=== PATIENT | female | born 1955 | race Caucasian/White ===

== ENCOUNTER 2023-05-23 12:49 | Emergency (ER) | payer MEDICARE, SELFPAY ==
[2023-05-23 13:06] VITALS: BP 106/48; PULSE 82; RESP 20; TEMP 36.7; O2SAT 100
--- NOTE | 2023-05-23 13:06 | ED.GENADULT ---
HPI - General Adult General Chief complaint: Fall Stated complaint: not feeling well Source: patient and RN notes reviewed History of Present Illness HPI narrative: 67 yo F Presents to urgent care [facility] friend at side. 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 Pt states she vomited x 1 in the bathroom and made it back to a table where she had a syncopal episode when attempting to sit down. Pt states she landed on her left buttocks. Denies hitting her head. Friend states pt was only out for a couple seconds. Pt admits to have a worse LIMA than normal that started this morning when she was in the shower, screaming. Pt states she was screaming b/c she is just tired of being sick. Pt reports having upper chest pain that radiated down both arms the other day. Pt states she has been having more and more chest pain lately but nothing today. Denies any fevers, chills, diarrhea, abdominal pain, blood in her emesis, dysuria, numbness, or tingling. Related Data Home Medications Medication Instructions Recorded Confirmed amlodipine 10 mg tablet mg 05/23/23 carvedilol 25 mg tablet mg 05/23/23 chlorthalidone 25 mg tablet mg 05/23/23 clonazepam 0.5 mg tablet mg 05/23/23 duloxetine 60 mg capsule,delayed mg PO 05/23/23 release empagliflozin 10 mg tablet mg 05/23/23 (Jardiance) fluticasone propionate 50 intranasal 05/23/23 mcg/actuation nasal spray,suspension gabapentin 300 mg capsule mg 05/23/23 levetiracetam 500 mg tablet mg PO 05/23/23 levothyroxine 50 mcg tablet mcg 05/23/23 meloxicam 7.5 mg tablet mg 05/23/23 metformin 1,000 mg tablet mg 05/23/23 montelukast 10 mg tablet mg 05/23/23 triamcinolone acetonide 0.1 % topical 05/23/23 topical ointment Allergies Allergy/AdvReac Type Severity Reaction Status Date / Time bupropion AdvReac Mild MIGRAINE Verified 05/23/23 13:12 codeine AdvReac Mild NAUSEA/VOMI Verified 05/23/23 13:12 TING losartan AdvReac Cough Verified 05/23/23 13:16 Review of Systems Review of Systems: CONSTITUTIONAL: Denies fever, chills, or sweats. EYES: Denies visual changes, redness, or discharge. ENT: Denies otalgia and sore throat CARDIOVASCULAR: Denies chest pain, palpitations, or edema. RESPIRATORY: Denies cough or dyspnea. GASTROINTESTINAL: Denies abdominal pain, nausea, vomiting, or diarrhea. GENITOURINARY: Denies dysuria or hematuria. SKIN: Denies rash or itching. MUSCULOSKELETAL: Denies back pain, joint pain, or myalgia. NEUROLOGIC: Headache and generalized weakness Pertinent positives per HPI. PMFSH Comments At the time of my signature, I reviewed and agree with the nursing past medical, surgical, social, and family history. There is no relevant family history pertinent to the patient complaint. Exam Narrative: GENERAL: This is a well-nourished, well-developed patient, in no apparent distress. HEAD: normocephalic, atraumatic. EYES: Sclera clear/white. Vision is grossly intact. EARS: External ears normal, auditory canals clear and without drainage. Hearing grossly intact. NOSE: External nose normal with no obvious nasal discharge, nares without redness, no rhinorrhea. CARDIOVASCULAR: Regular rate and rhythm without murmurs, gallops, or rubs. RESPIRATORY: Clear to auscultation. Breath sounds equal bilaterally. No wheezes, rales, or rhonchi. GASTROINTESTINAL: Abdomen soft, non-tender, nondistended. Bowel sounds are active. No hepato-splenomegaly, or palpable masses. No guarding. SKIN: warm, intact with no suspicious lesions or rash, dry. NEURO: awake, alert, and oriented to person, place and time. There were no obvious focal neurologic abnormalities. EXTREMITIES: No clubbing, cyanosis, or edema. No joint tenderness, effusion, or edema noted. Course Course Level of Care: Express Care Visit Vital Signs Vital signs: Vital Signs Temperature 98.0 F 05/23/23 13:06
--- NOTE | 2023-05-23 13:11 | ECG_ITS ---
Measurements Intervals [place] Rate: 84 P: 41 [place]: 133 QRS: 59 QRSD: 82 T: 80 QT: 369 QTc: 438 Interpretive Statements SINUS RHYTHM BORDERLINE T WAVE ABNORMALITY- HIGH LATERAL LEADS BORDERLINE ECG NO PREVIOUS ECG AVAILABLE FOR COMPARISON Electronically Signed On 05-23-2023 15:20:07 CDT by Gustabo Desai D.O.
--- NOTE | 2023-05-23 13:59 | PC.NURSE ---
1:23 PM EMS CALLED. UMESH POLK RN
== END 2023-05-23 13:32 | disposition short-term general hospital (02) ==
PROVIDERS: Emergency Provider Nurse Practitioner Family; PCP Internal Medicine
DX: R55 Syncope and collapse (principal)
CPT/HCPCS: 93005; 99213; 99215; G0463

== ENCOUNTER 2023-12-24 11:44 | Observation (INO) | payer MEDICARE, SELFPAY ==
[2023-12-24] VITALS (37 sets, daily range): BP systolic 108–133; BP diastolic 53–96; PULSE 87–101; RESP 12–25; TEMP 36.1–36.4; O2SAT 93–100; BMI 22.1
--- NOTE | ~2023-12-24 | CT_ITS ---
EXAMINATION: CT abdomen pelvis w con DATE: 12/24/2023 13:11 INDICATION: Generalized abdominal pain. TECHNIQUE: Computed tomography (CT) of the abdomen and pelvis was performed with 100 mL Omnipaque 350 intravenous contrast. Automated exposure control and iterative reconstruction technique were employe d. The dose-length product was 600.80 mGy-cm. COMPARISON: None. FINDINGS: The visualized portions of the lung bases demonstrate chronic interstitial lung disease. Th ere are nodules in the lungs measuring up to 4 mm in right lower lobe, likely benign. No pleural effu beronica. The heart size is normal. There are coronary artery calcifications. No pericardial effusion. Th ere is a small sliding hiatal hernia. The liver, spleen, pancreas, and adrenal glands are normal. The re is a gallstone in the gallbladder, which is normal in size. There is cortical thinning of the kidn eys. There are multiple fibroids in the uterus. There is wall thickening of the rectosigmoid and desc ending colon, consistent with colitis. The appendix is normal. There are no dilated loops of bowel. T here is calcified atherosclerosis of the aorta and many of the other arteries. There are no pathologi rajendra enlarged lymph nodes. There is no free intraperitoneal fluid. There is mild thoracic spondylosi s and severe lumbar spondylosis. IMPRESSION: 1. Colitis. 2. Small sliding hiatal hernia. 3. Chronic interstitial lung disease. Reviewed, dictated and finalized at location A. LE SHIPPER
--- NOTE | ~2023-12-24 | CT_ITS ---
EXAMINATION: CT cervical spine wo con DATE: 12/24/2023 13:11 INDICATION: Neck injury. TECHNIQUE: Computed tomography (CT) of the cervical spine was performed without intravenous contrast. Automated exposure control and iterative reconstruction technique were employed. The dose-length pro duct was 214.58 mGy-cm. COMPARISON: None FINDINGS: There are nodules in the thyroid measuring up to 14 mm, likely not clinically significant. There is 3 degrees levocurvature of cervical spine. Vertebral body heights are normal. There is sever kaycee decreased disc height from C4-C5 through T1-T2. The following disc levels are specifically discus sed: C2-C3: There is moderate left uncovertebral joint osteoarthritis. There is moderate right and mild le ft facet joint osteoarthritis. There is mild left neural foraminal stenosis. There is no central jacinta l stenosis. C3-C4: There is mild right and moderate left uncovertebral joint osteoarthritis. There is severe bila teral facet joint osteoarthritis. There is mild bilateral neural foraminal stenosis. There is mild ce ntral canal stenosis. C4-C5: There is mild right uncovertebral joint osteoarthritis. There is severe right and mild left fa cet joint osteoarthritis. There is mild right neural foraminal stenosis. There is no central canal st enosis. C5-C6: There is severe bilateral uncovertebral joint osteoarthritis. There is mild bilateral facet opal int osteoarthritis. There is mild bilateral neural foraminal stenosis. There is mild central canal st enosis. C6-C7: There is severe bilateral uncovertebral joint osteoarthritis. There is moderate bilateral face t joint osteoarthritis. There is mild bilateral neural foraminal stenosis. There is mild central jacinta l stenosis. C7-T1: There is severe bilateral uncovertebral joint osteoarthritis. There is severe bilateral facet joint osteoarthritis. There is mild bilateral neural foraminal stenosis. There is no central canal st enosis. IMPRESSION: 1. No fracture. 2. Severe cervical spondylosis. Reviewed, dictated and finalized at location A. ICIAN OFFICE SPECIALIST
--- NOTE | ~2023-12-24 | US_ITS ---
EXAMINATION: US carotid duplex BI DATE: 12/25/2023 15:14 INDICATION: Syncope. TECHNIQUE: Grayscale, color Doppler, and pulsed Doppler images of the cervical carotid arteries were obtained. The degree of vessel stenosis is placed in one of the following categories: normal, <50%, 5 0-69%, >=70% but less than near-occlusion, near-occlusion, or total occlusion. Note that percent sten osis relative to normal distal artery lumen diameter is indirectly measured from velocity measurement s as described by Nathaniel, et al. Radiology 2003; 229:340-346. COMPARISON: None. FINDINGS: RIGHT: The right common carotid artery (CCA) peak systolic velocity (PSV) is 69 cm/s. The right internal car otid artery (ICA) PSV is 90 cm/s. The right ICA end-diastolic velocity (EDV) is 40 cm/s. The right IC A/CCA PSV ratio is 1.3. Grayscale and color Doppler images yield an estimate of <50% diameter reducti on from plaque in the ICA. There is antegrade flow in the right vertebral artery. LEFT: The left CCA PSV is 78 cm/s. The left ICA PSV is 81 cm/s. The left ICA EDV is 19 cm/s. The left ICA/C CA PSV ratio is 1.0. Grayscale and color Doppler images yield an estimate of <50% diameter reduction from plaque in the ICA. There is antegrade flow in the left vertebral artery. IMPRESSION: 1. <50% stenosis in the right internal carotid artery. 2. <50% stenosis in the left internal carotid artery. Reviewed, dictated and finalized at location A. ICAL DEPENDENCY COUNSELOR
--- NOTE | ~2023-12-24 | CT_ITS ---
EXAMINATION: CT brain wo con DATE: 12/24/2023 13:11 INDICATION: Head injury. TECHNIQUE: Computed tomography (CT) of the head was performed without intravenous contrast. The mA wa s adjusted according to patient size. Iterative reconstruction technique was employed. The dose-lengt h product was 605.33 mGy-cm. COMPARISON: None FINDINGS: There are scattered areas of low attenuation in the cerebral white matter. There is no intr acranial hemorrhage, acute infarction, or abnormal intracranial mass lesion. The ventricles are lizbeth l in size. There is left periorbital soft tissue swelling. The orbits are normal. There is mild mucos al thickening in the ethmoid sinuses. The mastoid air cells are normal. IMPRESSION: 1. Moderate nonspecific cerebral white matter disease, which likely represents chronic small vessel i schemic disease. Reviewed, dictated and finalized at location A. EY ROOM CUSTODIAN IMPRESSION: 1. Moderate nonspecific cerebral white matter disease, which likely represents chronic small vessel ischemic disease.
--- NOTE | 2023-12-24 11:59 | ECG_ITS ---
Measurements Intervals [place] Rate: 85 P: 64 CO: 133 QRS: 56 QRSD: 77 T: 64 QT: 351 QTc: 419 Interpretive Statements SINUS RHYTHM NORMAL ECG COMPARED TO ECG 05/23/2023 13:25:51 NO SIGNIFICANT CHANGES Electronically Signed On 12-24-2023 12:37:24 MICROBIOLOGY LAB ANALYST by Fracisco Starkey M.D.
[2023-12-24] MEDS: SODIUM CHLORIDE 0.9% IV 2,000 ML 999 ML IV CONT (12:13)
[2023-12-24 12:17] LABS: Basophils Absolute Auto 0.1 K/mm3 (0.0-0.1); Basophils Percent Auto 0.6 % (0.2-1.2); Eosinophils Absolute Auto 0.3 K/mm3 (0-0.3); Eosinophils Percent Auto 2.5 % (0-4.4); Hematocrit 33.5 % (37.0-47.0); Hemoglobin 10.5 g/dL (12.0-15.0); Immature Granulocyte Absolute 0.22 K/mm3 (0.00-0.031); Immature Granulocyte Percent A 2.1 % (0-0.5); Lymphocytes Absolute Auto 2.54 K/mm3 (0.9-3.2); Lymphocytes Percent Auto 23.9 % (18.3-44.2); Mean Corpuscular HGB Conc 31.3 g/dl (32-36); Mean Corpuscular Hemoglobin 28.8 pg (26-34); Monocytes Absolute Auto 0.4 K/mm3 (0.1-0.6); Neutrophils Absolute Auto 7.1 K/mm3 (1.3-6.7); Neutrophils Percent Auto 66.9 % (45.5-73.1); Platelet Count Result 289 k/mm3 (150-375); Red Blood Count 3.64 M/mm3 (4.2-5.4); Red Cell Distribution Width 14.2 % (11.5-14.5); White Blood Count 10.6 K/mm3 (4.5-10.0)
[2023-12-24 12:33] LABS: Alanine Aminotransferase 25 U/L (6-35); Albumin Level 2.9 g/dL (3.5-5.1); Alkaline Phosphatase 54 U/L (38-126); Anion Gap 7 mmol/L (8-16); Aspartate Amino Transferase 27 U/L (14-36); Bilirubin,Total 0.2 mg/dL (0.2-1.3); Blood Urea Nitrogen 10 mg/dL (7-17); Calcium 8.1 mg/dL (8.4-10.2); Carbon Dioxide 19 mmol/L (22-30); Chloride 109 mmol/L (98-107); Estimated CRCL calculation 47 ml/min; Estimated Glomerular Filt Rate > 60; Glucose 156 mg/dL (65-110); Potassium 3.5 mmol/L (3.4-5.0); Sodium 135 mmol/L (137-145)
[2023-12-24 12:37] LABS: Lactic Acid Reflex 4.5 mmol/L (0.7-2.0)
[2023-12-24 13:30] LABS: Appearance Urine Clear (Clear); Bilirubin Urine Negative (Negative); Blood Urine Negative (Negative); Color Urine Yellow (Yellow); Glucose Urine UA 3+ mg/dL (Negative); Ketones Urine Negative (Negative); Leukocyte Esterase Ur Negative LEU/UL (Negative); Nitrate Urine Negative (Negative); Protein Urine Negative (Negative); Specific Grav Ur 1.017 (1.001-1.035); Urobilinogen Urine 0.2 mg/dL (<2.0)
[2023-12-24 13:32] LABS: Add Urine Microscopic? NO
--- NOTE | 2023-12-24 14:07 | ED.GENADULT ---
HPI - General Adult General Chief complaint: Syncope Stated complaint: syncopy Time Seen by Provider: 12/24/23 11:45 History of Present Illness HPI narrative: Patient is a 68-year-old female who presents ER with syncope. Patient was getting out of a car to go have lunch when she lost consciousness. She reports she has history of chronic diarrhea that response to prednisone. She recently went under colonoscopy and EGD with the only findings being esophagitis from reflux and no abnormal findings in her colon. She reports diarrhea is increased over last week and she has had poor oral intake. While being transported patient was found to have a blood pressure of 70 systolic and received 500 mL of IV fluid EN route. She received an additional 500ml after arrival. She denies fevers or chills or sweats. She does have history of lymphoma and currently takes Keytruda and another oral chemotherapeutic. She gets her care at [facility]. Related Data Home Medications Medication Instructions Recorded Confirmed amlodipine 10 mg tablet mg 05/23/23 11/08/23 chlorthalidone 25 mg tablet mg 05/23/23 11/08/23 clonazepam 0.5 mg tablet mg 05/23/23 11/08/23 duloxetine 60 mg capsule,delayed mg PO 05/23/23 11/08/23 release fluticasone propionate 50 intranasal 05/23/23 11/08/23 mcg/actuation nasal spray,suspension levetiracetam 500 mg tablet mg PO 05/23/23 11/08/23 levothyroxine 50 mcg tablet mcg 05/23/23 11/08/23 metformin 1,000 mg tablet mg 05/23/23 11/08/23 montelukast 10 mg tablet mg 05/23/23 11/08/23 acetaminophen 325 mg capsule 325 mg PO Q6H PRN 10/09/23 11/08/23 aluminum-mag hydroxide-simethicone 5 ml PO QID PRN 10/09/23 11/08/23 400 mg-400 mg-40 mg/5 mL oral susp aspirin 81 mg chewable tablet 81 mg PO DAILY 10/09/23 11/08/23 atorvastatin 80 mg tablet 80 mg PO DAILY 10/09/23 11/08/23 biotin 5 mg capsule 5 mg PO DAILY 10/09/23 11/08/23 calcium pantothenate 500 mg tablet mg PO 10/09/23 11/08/23 cetirizine 10 mg capsule (All Day 10 mg PO DAILY PRN 10/09/23 11/08/23 Allergy (cetirizine)) cyclobenzaprine 10 mg tablet 10 mg PO TID 10/09/23 11/08/23 fexofenadine 180 mg tablet 180 mg PO DAILY 10/09/23 11/08/23 (Allergy Relief (fexofenadine)) fludrocortisone 0.1 mg tablet 0.05 mg PO DAILY 10/09/23 11/08/23 gabapentin 300 mg capsule 300 mg PO DAILY 10/09/23 11/08/23 jeana (Zingiber officinalis) 250 250 mg PO DAILY 10/09/23 11/08/23 mg capsule (jeana extract) glipizide 5 mg tablet 5 mg PO DAILY 10/09/23 11/08/23 losartan 100 mg tablet 100 mg PO DAILY 10/09/23 11/08/23 meclizine 25 mg tablet 25 mg PO BID PRN 10/09/23 11/08/23 nilotinib 200 mg capsule 200 mg PO DAILY 10/09/23 11/08/23 ondansetron HCl 4 mg tablet 4 mg PO Q8H 10/09/23 11/08/23 insulin lispro protamine-lispro 10 unit subcut QAM 11/08/23 11/08/23 100 unit/mL (75-25) subcutaneous pen (Humalog Mix 75-25 KwikPen) prednisone 20 mg tablet 40 mg PO DAILY 11/08/23 11/08/23 Allergies Allergy/AdvReac Type Severity Reaction Status Date / Time bupropion AdvReac Mild MIGRAINE Verified 11/08/23 14:45 codeine AdvReac Mild NAUSEA/VOMI Verified 11/08/23 14:45 TING losartan AdvReac Cough Verified 11/08/23 14:45 Review of Systems Review of Systems: All systems reviewed & are unremarkable except as noted in HPI and below Constitutional: Constitutional: Denies chills, Denies fatigue and Denies fever(s) ENT: Denies nasal congestion and Denies sore throat Cardiovascular: Cardiovascular: Reports no additional cardiovascular complaints Respiratory: Respiratory: Reports no additional respiratory complaints Gastrointestinal: Gastrointestinal: Denies abdominal pain, Reports diarrhea, Reports nausea and Denies vomiting Genitourinary: Genitourinary: Reports no additional female genitourinary complaints Musculoskeletal: Musculoskeletal: Reports no additional musculoskeletal complaints Neurologic: Reports syncope, Denies headache(s), Denies focal weakness and D
[2023-12-24] MEDS: PIPERACILLN/TAZ 3.375GM/NS50ML 3.375 GM/50 ML BAG IVPB (14:54)
[2023-12-24 15:15] LABS: Reflex Lactic Acid Yes or No Add Lactic
[2023-12-24 16:13] LABS: Lactic Acid 3.5 mmol/L (0.7-2.0)
--- NOTE | 2023-12-24 16:44 | PM.IMHP ---
H&P: HPI History of Present Illness Date/Time: 12/24/23 14:30 Chief Complaint: Syncope. Narrative: This is a very pleasant 68-year-old female with history of seizures, hypertension, type 2 diabetes mellitus, hypothyroidism, and chronic myelogenous leukemia who presented to the emergency department via EMS from a local establishment for evaluation after syncopal episode. The patient provides the following history. She reports ongoing issues with diarrhea since last May and she had a colonoscopy done 3 weeks ago at [facility] at which time she was told everything looked normal. She wonders if her diarrhea may be related to Keytruda or Jardiance but she was told that was less likely. Apparently she was prescribed a prednisone taper in which she is currently on 30 mg for total of 7 days before tapering down. It is her understanding that the steroids were given to help her diarrhea and to calm down inflammation but again she was told that her colonoscopy was normal. In any event, she continues to have at least several loose stools a day and she admits that her appetite has not been great for awhile. She has lost about 30 lb since last summer, unintentionally. She had a headache when she got up this morning but was otherwise feeling okay. Not long prior to arrival she went to a local restaurant for lunch and when she got out of the car she apparently was stumbling before falling to the ground. Bystanders report a brief loss of consciousness; no seizure activity was noted. With further questioning, the patient reports that her seizures are typically partial seizures but she has not had a seizure for 2 years. She does not think she had a seizure today. There was no tongue bite, tremors, incontinence, or postictal state. There was no tongue bite or loss of consciousness. She did hit her head on the curb and sustained a hematoma to the left eye but suffered no other injuries. On EMS arrival she was reportedly hypotensive but her blood pressures have been stable since arrival. She denies vertigo, visual changes, facial droop, slurred speech, difficulty swallowing, focal weakness, paresthesias, chest and pleuritic pain, racing heart, shortness of breath, abdominal pain, vomiting, melena, and hematochezia. In the ED: She was afebrile with stable vital signs on arrival. Labs were significant for a lactic acid of 4.5, WBC count 10.6, hemoglobin 10.5, sodium 135, chloride 109, carbon dioxide 19, glucose 156, total protein 5.0, albumin 2.9. Urine showed 3+ glucose but was otherwise unremarkable. CT of the head and cervical spine did not show any acute findings. CT of the abdomen and pelvis showed colitis with small sliding hiatal hernia and chronic interstitial lung disease. She was given 3 L IV fluid bolus for the lactic acidosis and 3.375 mg Zosyn for colitis. She is being admitted in this setting for close monitoring and further workup. Review of Systems Review of Systems: Twelve systems were reviewed and are negative except for as per HPI. [facility] Past Medical History Medical History (Updated 12/24/23 @ 21:09 by Kathi Timmons PA-C) Anxiety Arthritis Chronic myelogenous leukemia Depression Hypertension Seizure disorder Type 2 diabetes mellitus Surgical History Surgical History History of arthroscopic knee surgery left x 3- Shyla Guan History of carpal tunnel release of both wrists Dr Mansfield History of rotator cuff surgery left - Dr Mansfield History of tonsillectomy Family History Family History Mother Diabetes mellitus Cancer Hypertension Anxiety Depression Heart disease Heart attack Father Hypertension Depression Alcoholic Sibling Heart attack Depression Anxiety Hypertension Other Heart attack Social History Social History (Updated 12/24/23 @ 21:04 by Kathi Timmons PA-C) Social History
--- NOTE | 2023-12-24 18:35 | ADMGEN ---
This patient, Mariposa Ramirez, was admitted to Medical Room 343-01. Patient/family oriented to hospital policies and general routines including ID bracelet, bed and alarms, visiting hours, pain management, procedures, bathroom and other care routines, personal items, smoking policy, room service/diet, and visiting hours. Information on how to activate the Rapid Response Team has been discussed. Patient/Family are encouraged to report perceived risks to care and to ask questions if they do not understand what they are told or what they should do.
[2023-12-24] MEDS: SODIUM CHLORIDE 0.9% IV 1,000 ML 125 ML IV CONT (19:23)
[2023-12-24] MEDS: HYDROcodone/acetaminophen (*CRX) 5-325 MG TABLET 1 TAB PO (20:56)
[2023-12-24 22:12] LABS: Glucose Point of Care 165 mg/dl (65-105)
[2023-12-24] MEDS: carvediloL 25 MG TABLET PO (23:30)
[2023-12-24] MEDS: levETIRAcetam 500 MG TABLET 1000 MG PO (23:30)
[2023-12-24] MEDS: MONTELUKAST SODIUM 10 MG TABLET PO (23:30)
[2023-12-25] VITALS (15 sets, daily range): BP systolic 123–157; BP diastolic 62–87; PULSE 70–109; RESP 18–21; TEMP 36.1–36.9; O2SAT 99–100; BMI 20.7
[2023-12-25] MEDS: metroNIDAZOLE 500 MG/ISO 100ML 500 MG/100 ML BAG 100 MG IVPB ×4 (00:13→22:08)
[2023-12-25] MEDS: HYDROcodone/acetaminophen (*CRX) 5-325 MG TABLET 1 TAB PO ×2 (05:32→21:32)
[2023-12-25] MEDS: LEVOTHYROXINE SODIUM 50 MCG TABLET PO (05:32)
[2023-12-25 05:53] LABS: Hematocrit 37.2 % (37.0-47.0); Hemoglobin 11.9 g/dL (12.0-15.0); Mean Corpuscular Volume 90.7 fl (80-100); Mean Platelet Volume 8.9 fl (7.4-10.4); Platelet Count Result 363 k/mm3 (150-375); Red Cell Distribution Width 14.3 % (11.5-14.5)
[2023-12-25 06:08] LABS: Anion Gap 6 mmol/L (8-16); Blood Urea Nitrogen 10 mg/dL (7-17); Calcium 7.8 mg/dL (8.4-10.2); Carbon Dioxide 22 mmol/L (22-30); Chloride 113 mmol/L (98-107); Estimated CRCL calculation 53 ml/min; Estimated Glomerular Filt Rate > 60; Glucose 100 mg/dL (65-110); Magnesium 1.7 mg/dL (1.6-2.3); Potassium 3.6 mmol/L (3.4-5.0); Sodium 141 mmol/L (137-145)
[2023-12-25] MEDS: SODIUM CHLORIDE 0.9% IV 1,000 ML 125 ML IV CONT ×2 (07:36→18:48)
[2023-12-25] MEDS: predniSONE 10 MG TABLET 30 MG PO (08:42)
[2023-12-25] MEDS: levETIRAcetam 500 MG TABLET PO (08:42)
[2023-12-25] MEDS: ASPIRIN 81 MG CHEWABLE TABLET PO (08:42)
[2023-12-25] MEDS: EMPAGLIFLOZIN 25 MG TABLET PO (08:42)
[2023-12-25] MEDS: DULoxetine HCL 60 MG CAPSULE.DR PO ×2 (08:42→17:53)
[2023-12-25] MEDS: ATORVASTATIN 40 MG TABLET 80 MG PO (08:42)
[2023-12-25] MEDS: FLUDROCORTISONE ACETATE 0.1 MG TABLET PO (08:43)
[2023-12-25] MEDS: LORATADINE 10 MG TABLET PO (08:43)
[2023-12-25] MEDS: carvediloL 25 MG TABLET PO ×2 (08:43→21:26)
[2023-12-25] MEDS: glipiZIDE 5 MG TABLET PO ×2 (08:44→18:48)
[2023-12-25] MEDS: FLUTICASONE PROPIONATE 0.05% NA SPR 16 GM BTL (*BKC) 2 SPRAY NASAL (08:44)
[2023-12-25 08:56] LABS: Glucose Point of Care 89 mg/dl (65-105)
--- NOTE | 2023-12-25 09:08 | PM.IMPN ---
Progress Note: A&P Assessment and Plan (1) Syncope: Code(s): R55 - Syncope and collapse Status: Acute (2) Colitis: Code(s): K52.9 - Noninfective gastroenteritis and colitis, unspecified Status: Acute (3) Lactic acidosis: Code(s): E87.20 - Acidosis, unspecified Status: Acute (4) Seizure disorder: Code(s): G40.909 - Epilepsy, unspecified, not intractable, without status epilepticus Status: Acute (5) Type 2 diabetes mellitus: Code(s): E11.9 - Type 2 diabetes mellitus without complications Status: Acute (6) Chronic myelogenous leukemia: Code(s): C92.10 - Chronic myeloid leukemia, BCR/ABL-positive, not having achieved remission Status: Acute (7) Hypertension: Code(s): I10 - Essential (primary) hypertension Status: Acute Plan The patient presented to the emergency department via EMS from a local establishment for evaluation after a presumed syncopal episode. PATIENT WAS GETTING OUT OF THE CAR TO GO HAVE LUNCH WHEN SHE SUDDENLY LOST CONSCIOUSNESS. HE HAD A HEADACHE WHEN SHE GOT UP THIS MORNING BUT OTHERWISE WAS FEELING OKAY. WHEN SHE GOT OUT OF THE CAR SHE APPARENTLY WAS STUMBLING FOR FOLLOWING THE GROUND. BYSTANDERS REPORTED BRIEF LOSS OF CONSCIOUSNESS WITH NO SEIZURE-LIKE ACTIVITY. SHE DOES HAVE HISTORY OF SEIZURES BUT TYPICALLY A PARTIAL SEIZURES AND HAS NOT HAD ANY SEIZURES FOR PAST 2 YEARS. NO TONGUE BITE TREMOR INCONTINENCE OR POSTICTAL STATE. SHE DID HIT HER HEAD ON THE CURB AND SUSTAINED A HEMATOMA TO THE LEFT EYE BUT SUFFERED NO OTHER INJURIES. EMS WAS CALLED. LEVEL 2 HYPOTENSIVE FOLLOW-UP AND WAS BROUGHT TO THE ED FOR EVALUATION. IN THE ED WAS AFEBRILE STABLE VITAL SIGNS. LACTIC ACID WAS ELEVATED 4.5 WBC COUNT 10.6 HEMOGLOBIN 13.5 SODIUM 135 CHLORIDE 109 CARBON DIOXIDE IS 19 GLUCOSE 156. URINALYSIS SHOWED 3+ GLUCOSE BUT OTHERWISE UNREMARKABLE. CT OF THE HEAD AND CERVICAL SPINE DID NOT SHOW ANY ACUTE FINDINGS. CT OF THE ABDOMEN PELVIS SHOWED COLITIS WITH SMALL SLIDING HIATAL HERNIA AND CHRONIC INTERSTITIAL LUNG DISEASE. SHE WAS GIVEN 3 L OF IV FLUID BOLUS WITH LACTIC ACIDOSIS AND WAS ALSO STARTED ON ZOSYN FOR COLITIS. SHE HAS A HISTORY OF 5 DIARRHEA SINCE LAST MAY AND HAD COLONOSCOPY DONE ABOUT 3 WEEKS AGO AT [facility] WHICH LOOKED NORMAL. SHE WAS PRESCRIBED PREDNISONE TAPER FOR WHICH SHE IS CURRENTLY ON SUFFERED 30 MG WHICH WAS GIVEN TO HELP HER WITH OF DIARRHEA AND COM THE INFLAMMATION DOWN. SHE HAS LOST ABOUT 30 LB SINCE LAST SUMMER AND CONTINUES TO HAVE AT LEAST SEVERAL LOOSE STOOLS A DAY. HER SYNCOPAL EPISODE may very well BE due to a drop in blood pressure. She looks dry on exam and has not had good oral intake and ongoing issues with diarrhea. Consider occult seizure given lactic acidosis. Cannot rule out developing sepsis though she does not look toxic. She will be monitored on telemetry to rule out cardiac dysrhythmia. An echocardiogram and carotid Doppler ultrasounds have been ordered for further evaluation. She has been started on empiric antibiotics for findings of colitis on CT as she is immunocompromised. THIS HAS BEEN SWITCHED TO CEFTRIAXONE AND FLAGYL she was recently on a prednisone taper as above and is on fludrocortisone daily. No electrolyte abnormalities noted thus unlikely adrenal insufficiency. Check stools studies, stool culture, and C diff. Records requested from [facility] from her recent colonoscopy for review. Continue levetiracetam. Initiate fall and seizure precautions. Monitor orthostatic vital signs Q shift. Initiate sliding scale insulin, Accu-Cheks, and hypoglycemic protocol. Check hemoglobin A1c. Continue levothyroxine and TSH IS NORMAL. HISTORY OF CML HYPERTENSION HYPERLIPIDEMIA DIABETES ON INSULIN DVT PROPHYLAXIS: LOVENOX Subjective Date/time seen: 12/25/23 09:08 Interval history: No overnight events. Feels better. Vital stable. Has not had any diarrhea today. Denies any abdominal pain. Review
[2023-12-25 12:01] LABS: Glucose Point of Care 256 mg/dl (65-105)
[2023-12-25] MEDS: ENOXAPARIN 40 MG/0.4 ML SYRINGE SUB-Q (13:13)
[2023-12-25] MEDS: INSULIN ASPART (*BKC) 100 UNITS/ML SUB-Q ×2 (13:14→17:53)
[2023-12-25 17:20] LABS: Glucose Point of Care 217 mg/dl (65-105)
[2023-12-25 19:57] LABS: Toxigenic C. Diff NEGATIVE (NEGATIVE)
--- NOTE | 2023-12-25 21:17 | ECHO_ITS ---
Patient Info Name: Mariposa Ramirez Age: 68 years : 1955 Gender: Female Ht: 65 in Wt: 133 lbs BSA: 1.67 m2 HR: 91 bpm BP: 114 / 53 mmHg Technical Quality: Fair Exam Date: 12/25/2023 12:16 PM Exam Location: Echo Lab Exam Room: 343 Patient Status: Inpatient Admit Date: 12/24/2023 Staff Ordering Physician: Kathi Timmons PA-C Rubber Gasket Inspector Trimmer: Yesica Castillo RDCS Attending Provider: Mariann Singh MD Referring Physician: Iain MCKEON; Exam Type: CA echo doppler color flow Study Info Indications - syncope Complete two-dimensional, color flow and Doppler transthoracic echocardiogram is performed. Summary 1. Complete two-dimensional, color flow and Doppler transthoracic echocardiogram is performed. 2. Left ventricular chamber dimension is normal. 3. Left ventricular systolic function is normal, estimated at 60-65%. 4. The left ventricular diastolic function is grade I diastolic dysfunction. 5. E/e' 14 is mildly elevated. 6. Global longitudinal strain is abnormal at -13.1%. 7. Left atrial chamber dimension is mildly enlarged. 8. There is mild aortic valve sclerosis. 9. There is trace aortic valve regurgitation. 10. There is trace mitral valve regurgitation. 11. No pulmonary hypertension, estimated pulmonary arterial systolic pressure is 36 mmHg. Left Ventricle E/e' 14 is mildly elevated. Global longitudinal strain is abnormal at -13.1%. Left ventricular chamber dimension is normal. Left ventricular systolic function is normal, estimated at 60-65%. The left ventricular diastolic function is grade I diastolic dysfunction. Right Ventricle Right ventricular chamber dimension is normal. Right ventricular systolic function is normal. Left Atria Left atrial chamber dimension is mildly enlarged. Right Atria Right atrial chamber dimension is normal. Aortic Valve The aortic valve is trileaflet. There is mild aortic valve sclerosis. There is no aortic valve stenosis. There is trace aortic valve regurgitation. Pulmonic Valve There is no pulmonic regurgitation. Mitral Valve There is no mitral valve stenosis. There is trace mitral valve regurgitation. Tricuspid Valve There is no tricuspid valve regurgitation. No pulmonary hypertension, estimated pulmonary arterial systolic pressure is 36 mmHg. Pericardium/Pleural There is no pericardial effusion. Inferior Vena Cava Normal inferior vena cava with >50% collapse upon inspiration consistent with normal right atrial pressure, 5 mmHg. Aorta The aortic root size at the sinus of Valsalva is normal. Left Ventricular Outflow Tract Name Value Normal LVOT 2D LVOT Diameter 2.0 cm LVOT Doppler LVOT Peak Gradient 4 mmHg LVOT Mean Gradient 2 mmHg LVOT VTI 17 cm LVOT VTI/AV VTI Ratio 0.8 LVOT Stroke Volume 52 ml LVOT CO 10.7 l/min LVOT CI 6.4 l/min/m2 Pulmonic Valve Name Value Normal
[2023-12-25] MEDS: levETIRAcetam 500 MG TABLET 1000 MG PO (21:26)
[2023-12-25] MEDS: MONTELUKAST SODIUM 10 MG TABLET PO (21:26)
[2023-12-26] VITALS: PULSE 72
[2023-12-26 04:00] VITALS: PULSE 76
[2023-12-26] MEDS: HYDROcodone/acetaminophen (*CRX) 5-325 MG TABLET 1 TAB PO ×3 (04:54→14:08)
[2023-12-26] MEDS: metroNIDAZOLE 500 MG/ISO 100ML 500 MG/100 ML BAG 100 MG IVPB (04:54)
[2023-12-26] MEDS: LEVOTHYROXINE SODIUM 50 MCG TABLET PO (04:54)
[2023-12-26] MEDS: SODIUM CHLORIDE 0.9% IV 1,000 ML 125 ML IV CONT (04:55)
[2023-12-26 06:00] VITALS: BP 126/64; PULSE 74; RESP 21; TEMP 35.7; O2SAT 100
[2023-12-26 07:00] LABS: Basophils Absolute Auto 0.1 K/mm3 (0.0-0.1); Basophils Percent Auto 0.5 % (0.2-1.2); Eosinophils Absolute Auto 0.2 K/mm3 (0-0.3); Eosinophils Percent Auto 1.5 % (0-4.4); Hematocrit 33.4 % (37.0-47.0); Hemoglobin 10.6 g/dL (12.0-15.0); Immature Granulocyte Absolute 0.13 K/mm3 (0.00-0.031); Immature Granulocyte Percent A 1.2 % (0-0.5); Lymphocytes Absolute Auto 4.52 K/mm3 (0.9-3.2); Lymphocytes Percent Auto 41.9 % (18.3-44.2); Mean Corpuscular HGB Conc 31.7 g/dl (32-36); Mean Corpuscular Hemoglobin 28.7 pg (26-34); Mean Corpuscular Volume 90.5 fl (80-100); Mean Platelet Volume 9.3 fl (7.4-10.4); Monocytes Absolute Auto 0.8 K/mm3 (0.1-0.6); Monocytes Percent Auto 7.1 % (2.6-8.5); Neutrophils Absolute Auto 5.2 K/mm3 (1.3-6.7); Neutrophils Percent Auto 47.8 % (45.5-73.1); Platelet Count Result 309 k/mm3 (150-375); Red Blood Count 3.69 M/mm3 (4.2-5.4); Red Cell Distribution Width 14.3 % (11.5-14.5); White Blood Count 10.8 K/mm3 (4.5-10.0)
[2023-12-26 07:00] LABS: Glucose Point of Care 157 mg/dl (65-105)
[2023-12-26 07:08] LABS: Alanine Aminotransferase 18 U/L (6-35); Albumin Level 2.9 g/dL (3.5-5.1); Alkaline Phosphatase 52 U/L (38-126); Anion Gap 2 mmol/L (8-16); Aspartate Amino Transferase 18 U/L (14-36); Bilirubin,Total 0.2 mg/dL (0.2-1.3); Blood Urea Nitrogen 11 mg/dL (7-17); Calcium 8.6 mg/dL (8.4-10.2); Carbon Dioxide 28 mmol/L (22-30); Chloride 112 mmol/L (98-107); Estimated CRCL calculation 53 ml/min; Estimated Glomerular Filt Rate > 60; Glucose 111 mg/dL (65-110); Magnesium 1.6 mg/dL (1.6-2.3); Potassium 4.1 mmol/L (3.4-5.0); Sodium 142 mmol/L (137-145)
[2023-12-26 07:57] LABS: Glucose Point of Care 121 mg/dl (65-105)
[2023-12-26] MEDS: glipiZIDE 5 MG TABLET PO (08:02)
[2023-12-26] MEDS: DULoxetine HCL 60 MG CAPSULE.DR PO (08:02)
[2023-12-26] MEDS: FLUDROCORTISONE ACETATE 0.1 MG TABLET PO (08:02)
[2023-12-26] MEDS: LORATADINE 10 MG TABLET PO (08:02)
[2023-12-26] MEDS: ATORVASTATIN 40 MG TABLET 80 MG PO (08:02)
[2023-12-26] MEDS: ASPIRIN 81 MG CHEWABLE TABLET PO (08:02)
[2023-12-26] MEDS: levETIRAcetam 500 MG TABLET PO (08:02)
[2023-12-26] MEDS: predniSONE 10 MG TABLET 30 MG PO (08:02)
[2023-12-26 08:03] VITALS: PULSE 76
[2023-12-26] MEDS: carvediloL 25 MG TABLET PO (08:03)
[2023-12-26 08:05] VITALS: PULSE 73
[2023-12-26] MEDS: FLUTICASONE PROPIONATE 0.05% NA SPR 16 GM BTL (*BKC) 2 SPRAY NASAL (08:05)
[2023-12-26] MEDS: EMPAGLIFLOZIN 25 MG TABLET PO (08:05)
[2023-12-26] MEDS: ENOXAPARIN 40 MG/0.4 ML SYRINGE SUB-Q (08:05)
[2023-12-26 11:43] LABS: Glucose Point of Care 313 mg/dl (65-105)
[2023-12-26] MEDS: INSULIN ASPART (*BKC) 100 UNITS/ML SUB-Q (12:06)
--- NOTE | 2023-12-26 12:37 | PM.DS ---
DS: Admitting Diagnosis Discharge Date 12/26/2023 Admitting Diagnosis Syncope DS: Discharge Diagnosis Discharge Diagnosis (1) Syncope: Code(s): R55 - Syncope and collapse Status: Acute (2) Colitis: Code(s): K52.9 - Noninfective gastroenteritis and colitis, unspecified Status: Acute (3) Lactic acidosis: Code(s): E87.20 - Acidosis, unspecified Status: Acute (4) Seizure disorder: Code(s): G40.909 - Epilepsy, unspecified, not intractable, without status epilepticus Status: Acute (5) Type 2 diabetes mellitus: Code(s): E11.9 - Type 2 diabetes mellitus without complications Status: Acute (6) Chronic myelogenous leukemia: Code(s): C92.10 - Chronic myeloid leukemia, BCR/ABL-positive, not having achieved remission Status: Acute (7) Hypertension: Code(s): I10 - Essential (primary) hypertension Status: Acute DS: Summary Hospital Course Hospital Course: The patient presented to the emergency department via EMS from a local establishment for evaluation after a presumed syncopal episode.? PATIENT WAS GETTING OUT OF THE CAR TO GO HAVE LUNCH WHEN SHE SUDDENLY LOST CONSCIOUSNESS.? She HAD A HEADACHE WHEN SHE GOT UP THIS MORNING BUT OTHERWISE WAS FEELING OKAY.? WHEN SHE GOT OUT OF THE CAR SHE APPARENTLY WAS STUMBLING before falling to THE GROUND.? BYSTANDERS REPORTED BRIEF LOSS OF CONSCIOUSNESS WITH NO SEIZURE-LIKE ACTIVITY.? SHE DOES HAVE HISTORY OF SEIZURES BUT TYPICALLY A PARTIAL SEIZURES AND HAS NOT HAD ANY SEIZURES FOR PAST 2 YEARS.? NO TONGUE BITE TREMOR INCONTINENCE OR POSTICTAL STATE.? SHE DID HIT HER HEAD ON THE CURB AND SUSTAINED A HEMATOMA TO THE LEFT EYE BUT SUFFERED NO OTHER INJURIES.? EMS WAS CALLED.? Reported a blood pressure to be low when EMS arrived and WAS BROUGHT TO THE ED FOR EVALUATION.? IN THE ED WAS AFEBRILE STABLE VITAL SIGNS.? LACTIC ACID WAS ELEVATED 4.5 WBC COUNT 10.6 HEMOGLOBIN 13.5 SODIUM 135 CHLORIDE 109 CARBON DIOXIDE IS 19 GLUCOSE 156.? URINALYSIS SHOWED 3+ GLUCOSE BUT OTHERWISE UNREMARKABLE.? CT OF THE HEAD AND CERVICAL SPINE DID NOT SHOW ANY ACUTE FINDINGS.? CT OF THE ABDOMEN PELVIS SHOWED COLITIS WITH SMALL SLIDING HIATAL HERNIA AND CHRONIC INTERSTITIAL LUNG DISEASE.? SHE WAS GIVEN 3 L OF IV FLUID BOLUS WITH LACTIC ACIDOSIS AND WAS ALSO STARTED ON ZOSYN FOR COLITIS.? SHE HAS A HISTORY OF 5 DIARRHEA SINCE LAST MAY AND HAD COLONOSCOPY DONE ABOUT 3 WEEKS AGO AT [facility] WHICH LOOKED NORMAL.? SHE WAS PRESCRIBED PREDNISONE TAPER FOR WHICH SHE IS CURRENTLY ON SUFFERED 30 MG WHICH WAS GIVEN TO HELP HER WITH OF DIARRHEA AND COM THE INFLAMMATION DOWN.? SHE HAS LOST ABOUT 30 LB SINCE LAST SUMMER AND CONTINUES TO HAVE AT LEAST SEVERAL LOOSE STOOLS A DAY. HER SYNCOPAL EPISODE may very well BE due to a drop in blood pressure. She looks dry on exam and has not had good oral intake and ongoing issues with diarrhea. Consider occult seizure given lactic acidosis. Cannot rule out developing sepsis though she does not look toxic. She was monitored on telemetry to rule out cardiac dysrhythmia and did not reveal any arrhythmia an echocardiogram was as well as carotid Doppler was negative.. Her CT findings colitis was treated with empiric antibiotics to be switched to oral. Stool studies were negative for C diff. she had chronic diarrhea and was recently placed on a prednisone taper as above and is on fludrocortisone daily. No electrolyte abnormalities noted thus unlikely adrenal insufficiency. Records requested from [facility] from her recent colonoscopy for review. Continue levetiracetam. Initiate fall and seizure precautions. Monitor orthostatic vital signs Q shift which remain negative. A1c was 7. Continue levothyroxine and TSH IS NORMAL. She was evaluated PT OT was back to her baseline. Her chlorthalidone was discontinued at discharge and will reassess with for the PCP as outpatient basis upon discharge. HISTORY OF CML HYPERTENSION HYPERLIPIDEMIA DIABETE
[2023-12-26 14:00] VITALS: BP 132/56; PULSE 99; RESP 17; TEMP 36.1; O2SAT 99
== END 2023-12-26 14:37 | disposition home or self-care (01) ==
LOC: ANHED 12:25 → ANH3MED 17:44 → ANH3MEDSUR 12-26 15:20
PROVIDERS: Physician Assistant; Admitting Provider General Practice; Emergency Provider Emergency Medicine; Visit Provider Internal Medicine
DX: R55 Syncope and collapse (principal); K52.9 Noninfective gastroenteritis and colitis, unspecified; E87.20 Acidosis, unspecified; G40.909 Epilepsy, unspecified, not intractable, without status epilepticus; E11.9 Type 2 diabetes mellitus without complications; C92.10 Chronic myeloid leukemia, BCR/ABL-positive, not having achieved remission; I11.9 Hypertensive heart disease without heart failure; K44.9 Diaphragmatic hernia without obstruction or gangrene; J84.9 Interstitial pulmonary disease, unspecified; M47.812 Spondylosis without myelopathy or radiculopathy, cervical region; E03.9 Hypothyroidism, unspecified; I35.8 Other nonrheumatic aortic valve disorders; F41.9 Anxiety disorder, unspecified; F32.A Depression, unspecified; M19.90 Unspecified osteoarthritis, unspecified site; Z79.1 Long term (current) use of non-steroidal anti-inflammatories (NSAID); Z79.82 Long term (current) use of aspirin; Z79.60 Long term (current) use of unspecified immunomodulators and immunosuppressants; Z79.52 Long term (current) use of systemic steroids; Z79.84 Long term (current) use of oral hypoglycemic drugs; Z79.4 Long term (current) use of insulin; Z79.899 Other long term (current) drug therapy; Z83.3 Family history of diabetes mellitus; Z80.9 Family history of malignant neoplasm, unspecified; Z82.49 Family history of ischemic heart disease and other diseases of the circulatory system
CPT/HCPCS: 36415; 70450; 72125; 74177; 80048; 80053; 81003; 82948; 83036; 83605; 83735; 84443; 85025; 85027; 87040; 87045; 87427; 87449; 87493; 93005; 93306; 93880; 96361; 96365; 96366; 96367; 96372; 97161; 97165; 99285; A9270; G0378; J0696; J1650; J1815; J1836; J2543; J7030; J7512; Q9967

== ENCOUNTER 2024-08-26 15:06 | Emergency (ER) | payer MEDICARE, SELFPAY ==
--- NOTE | ~2024-08-26 | XR_ITS ---
EXAMINATION: XR forearm LT 2V DATE: 08/26/2024 16:12 INDICATION: Fall. TECHNIQUE: 2 views of left forearm were obtained. COMPARISON: None. FINDINGS: Alignment is normal. No fracture. There is mild osteoarthritis of first carpometacarpal sunny nt. There are enthesophytes at medial and lateral humeral epicondyles. No elbow joint effusion. IMPRESSION: 1. No fracture. Reviewed, dictated and finalized at location A. IMPRESSION: 1. No fracture.
[2024-08-26 15:16] VITALS: BP 138/115; PULSE 95; RESP 20; TEMP 37.4; O2SAT 100
--- NOTE | 2024-08-26 15:25 | ED.UPPEXIN ---
HPI - Extremity Injury (Upper) General Chief Complaint: Extremity Injury, Upper Stated Complaint: left arm abraision Time Seen by Provider: 08/26/24 15:25 Source: patient, RN notes reviewed and old records reviewed Mode of arrival: ambulatory Limitations: no limitations History of Present Illness HPI narrative: 69 year old female who presents to [facility] care with complaints of falling at home on Monday part on concrete part on hardwood and hit her left lateral forearm causing a skin abrasion with continued pain to her left forearm. Patient is on Prednisone and is also on chemotherapy for Leukemia.Patient has been cleansing skin abrasion on left forearm and applying triple antibiotic ointment and applied a band-aid with now redness and irritation where adhesive of band-aide was on skin. Wound cleansed with antiseptic solution and saline measuring 3cm X 2 cm with some erythema and swelling, MIKI and Telfa and Coban dressing by nursing staff. Patient reports pain to her forearm continues and is concerned of bone injury, has been taking Tylenol with little pain decrease voiced. MD complaint: injury to: left and forearm Onset (ago): day(s) (8) Handedness: right Place: home Severity scale (1-10): 3 Treatments prior to arrival: bandage and other (cleansing skin abrasion applying MIKI, Tylenol) Related Data Home Medications Medication Instructions Recorded Confirmed levothyroxine 50 mcg tablet 50 mcg PO DAILY 05/23/23 08/26/24 metformin 1,000 mg tablet 1,000 mg PO BID 05/23/23 08/26/24 montelukast 10 mg tablet 10 mg PO HS 05/23/23 08/26/24 acetaminophen 325 mg capsule 325 mg PO Q6H PRN Mild Pain (Scale 10/09/23 08/26/24 Score 1-4) aspirin 81 mg chewable tablet 81 mg PO DAILY 10/09/23 08/26/24 atorvastatin 80 mg tablet 80 mg PO DAILY 10/09/23 08/26/24 biotin 5 mg capsule 5 mg PO DAILY 10/09/23 08/26/24 calcium pantothenate 500 mg tablet 500 mg PO DAILY 10/09/23 08/26/24 glipizide 5 mg tablet 5 mg PO BID 10/09/23 08/26/24 carvedilol 12.5 mg tablet 12.5 mg PO DAILY 08/26/24 08/26/24 duloxetine 30 mg capsule,delayed 30 mg PO DAILY 08/26/24 08/26/24 release prednisone 2.5 mg tablet 2.5 mg PO DAILY 08/26/24 08/26/24 Allergies Allergy/AdvReac Type Severity Reaction Status Date / Time bupropion AdvReac Mild MIGRAINE Verified 08/26/24 15:12 codeine AdvReac Mild NAUSEA/VOMI Verified 08/26/24 15:12 TING losartan AdvReac Cough Verified 08/26/24 15:12 Review of Systems Review of Systems: CONSTITUTIONAL: Denies fever, chills, or sweats. EYES: Denies visual changes, redness, or discharge. ENT: Denies rhinorrhea, congestion, sore throat, or otalgia. CARDIOVASCULAR: Denies chest pain, palpitations, or edema. RESPIRATORY: Denies cough or dyspnea. GASTROINTESTINAL: Denies abdominal pain, nausea, vomiting, or diarrhea. GENITOURINARY: Denies dysuria or hematuria. SKIN: Denies rash or itching.Skin abrasion with redness and swelling and also redness and irritation around wound from reaction to adhesive of band-aide site. MUSCULOSKELETAL: Denies back pain, reports left forearm pain , or myalgia. NEUROLOGIC: Denies headache, numbness, or weakness. PSYCHIATRIC: Denies anxiety or depression. All systems reviewed & are unremarkable except as noted in HPI and below PMFSH Past Medical History Medical History Anxiety Arthritis Chronic myelogenous leukemia Depression Hypertension Seizure disorder Type 2 diabetes mellitus Surgical History Surgical History History of arthroscopic knee surgery left x 3- Shyal Guan History of carpal tunnel release of both wrists Dr Mansfield History of rotator cuff surgery left - Dr Mansfield History of tonsillectomy Family History Family History Mother Diabetes mellitus Cancer Hypertension Anxiety Depression Heart disease Hear
== END 2024-08-26 17:05 | disposition home or self-care (01) ==
PROVIDERS: Emergency Provider Registered Nurse
DX: S50.812A Abrasion of left forearm, initial encounter (principal); M79.632 Pain in left forearm; W19.XXXA Unspecified fall, initial encounter; C92.10 Chronic myeloid leukemia, BCR/ABL-positive, not having achieved remission; Z79.60 Long term (current) use of unspecified immunomodulators and immunosuppressants; M19.90 Unspecified osteoarthritis, unspecified site; I10 Essential (primary) hypertension; E11.9 Type 2 diabetes mellitus without complications; Z79.84 Long term (current) use of oral hypoglycemic drugs; Z79.82 Long term (current) use of aspirin
CPT/HCPCS: 73090; 99213; G0463

== ENCOUNTER 2024-09-30 10:43 | Emergency (ER) | payer MEDICARE, SELFPAY ==
--- NOTE | ~2024-09-30 | XR_ITS ---
XR foot LT min 3V Ordering provider: Dorothy Tse NP History: . fell when getting on toilet and hit left foot . Comparison: None. FINDINGS: BONES: Possible lucency at the base of the proximal phalanx of the little toe. This may indicate a fr acture. Clinical correlation for tenderness is advised. Otherwise, No acute fracture or dislocation. Calcaneus spur. Ossification of the insertion of the tendo Achilles. JOINT SPACES: Narrowing of the proximal and distal interphalangeal joints. No tarsal coalition. SOFT TISSUES: Vascular calcifications. IMPRESSION: Possible fracture at the base of the proximal phalanx of the little toe. Clinical correlation for ten derness advised. Otherwise, No acute osseous abnormality left foot. Narrowing of the proximal and distal interphalangeal joints. Reviewed, dictated and finalized at location A. E ENGINEER IMPRESSION: Possible fracture at the base of the proximal phalanx of the little toe. Clinic al correlation for tenderness advised. Otherwise, No acute osseous abnormality left foot. Narrowing of the proximal and distal interphalangeal joints.
[2024-09-30 10:50] VITALS: BP 111/60; PULSE 84; RESP 18; TEMP 36.7; O2SAT 100
--- NOTE | 2024-09-30 11:12 | ED_ITS ---
HPI - Extremity Injury (Lower) General Chief Complaint: Extremity Injury, Lower Stated Complaint: Fall Injury/Left Foot Time Seen by Provider: 09/30/24 11:00 Source: patient, RN notes reviewed and old records reviewed Mode of arrival: ambulatory (placed in wheelchair) Limitations: no limitations History of Present Illness HPI Narrative: 69 year old female who presents to express care with complaints of going to get on toilet became dizzy and fell onto her floor with pain to the lateral aspect of her left foot which occurred 5 days ago. Patient reports that she has had some ongoing dizziness episodes and doctor did take her off of one of her hypertensive medication and she does drink fluids well as she has been instructed in past. Patient is not using any assistive devices on routine basis for ambulation.Patient has pain swelling and some bruising to the lateral aspect of her left foot with discomfort on top and on plantar area of foot, strong pedal pulse present. MD complaint: foot injury (left) Onset (ago): day(s) (5) Injury: Left: foot (lateral) Type of Injury: blunt Place: home Severity scale (1-10): 6 Exacerbating factors: weight bearing and movement Treatments prior to arrival: cold therapy and other (tramadol and Tylenol) Related Data Home Medications Medication Instructions Recorded Confirmed levothyroxine 50 mcg tablet 50 mcg PO DAILY 05/23/23 09/30/24 metformin 1,000 mg tablet 1,000 mg PO BID 05/23/23 09/30/24 montelukast 10 mg tablet 10 mg PO HS 05/23/23 09/30/24 acetaminophen 325 mg capsule 325 mg PO Q6H PRN Mild Pain (Scale 10/09/23 09/30/24 Score 1-4) aspirin 81 mg chewable tablet 81 mg PO DAILY 10/09/23 09/30/24 atorvastatin 80 mg tablet 80 mg PO DAILY 10/09/23 09/30/24 biotin 5 mg capsule 5 mg PO DAILY 10/09/23 09/30/24 calcium pantothenate 500 mg tablet 500 mg PO DAILY 10/09/23 09/30/24 glipizide 5 mg tablet 5 mg PO BID 10/09/23 09/30/24 carvedilol 12.5 mg tablet 12.5 mg PO DAILY 08/26/24 09/30/24 duloxetine 30 mg capsule,delayed 30 mg PO DAILY 08/26/24 09/30/24 release prednisone 2.5 mg tablet 2.5 mg PO DAILY 08/26/24 09/30/24 Allergies Allergy/AdvReac Type Severity Reaction Status Date / Time bupropion AdvReac Mild MIGRAINE Verified 09/30/24 10:49 codeine AdvReac Mild NAUSEA/VOMI Verified 09/30/24 10:49 TING losartan AdvReac Cough Verified 09/30/24 10:49 Review of Systems Review of Systems: CONSTITUTIONAL: Denies fever, chills, or sweats. EYES: Denies visual changes, redness, or discharge. ENT: Denies rhinorrhea, congestion, sore throat, or otalgia. CARDIOVASCULAR: Denies chest pain, palpitations, or edema. RESPIRATORY: Denies cough or dyspnea. GASTROINTESTINAL: Denies abdominal pain, nausea, vomiting, or diarrhea. GENITOURINARY: Denies dysuria or hematuria. SKIN: Denies rash or itching. MUSCULOSKELETAL: Denies back pain,positive for left lateral foot pain swelling and bruising with pain to plantar aspect also, or myalgia. NEUROLOGIC: Denies headache, numbness, or weakness, positive for episodes of dizziness.. PSYCHIATRIC: Positive for history of anxiety or depression. All systems reviewed & are unremarkable except as noted in HPI and below PMFSH Past Medical History Medical History Anxiety Arthritis Chronic myelogenous leukemia Depression Hypertension Seizure disorder Type 2 diabetes mellitus Surgical History Surgical History History of arthroscopic knee surgery left x 3- Shyla Guan History of carpal tunnel release of both wrists Dr Mansfield History of rotator cuff surgery left - Dr Mansfield History of tonsillectomy Family History Family History Mother Diabetes mellitus Cancer Hypertension Anxiety Depression Heart disease Heart attack Father Hypertension Depression Alcoholic Sibling Heart attack Depression Anxiety Hypertension Other Heart attack Social History Social History Social History: Surrogate medical decision maker: Clay Navarrobraith, brother. Code status: Full code. Smoking status: Never smoker Alcohol intake: former Alcohol use details: rarely Substance use: never Substance use type: does not use Do You Feel Safe in your Home?: Yes Lack of Transportation: No Lack of Food: Never True Current Housing: I Have Housing Concerned About Future Housing: No Difficulty Paying Gas/Electric Bills: No Difficulty Paying for Meds: No Currently Unemployed: No Education: High School Diploma/GED Difficulty w/ Childcare or Family Care: No Living arrangements: alone Occupation/Education: retired Spiritual care concerns: No Comments At time of signature, agree with nursing past medical, surgical, social and family history. There is no relevant family history pertinent to the presenting complaint Exam Narrative: GENERAL:Chronic ill-appearing, well-nourished, and in no acute distress. HEAD: Normocephalic, atraumatic. EYES: PERRLA and EOMI. ENT: Nares clear, no rhinorrhea or epistaxis. Mucous membranes moist.TM's normal throat pink with no swelling or lesions. NECK: Supple. no lymphadenopathy CHEST: Clear to auscultation. No respiratory distress.SAO2 100% on room air HEART: Regular rate and rhythm. No murmur heard. Normal peripheral pulses. ABDOMEN: Soft, nontender, nondistended, normal active bowel sounds. EXTREMITIES: Normal range of motion. No edema.Positive for pain and some swelling and bruising to the lateral aspect of left foot with some radiation of pain to plantar aspect along proximal 5th toe region, strong pedal pulse with foot warm to touch,increased pain with movement and weight bearing. SKIN: Warm, dry, no rash. NEURO: No focal deficits. Alert and oriented x3.positive for episodes of dizziness denies any at present time. Course Course Emergency Course: Patient is aware of diagnosis, understands and agrees to treatment plan.? Anticipatory guidance given.? Patient agrees to follow-up as directed and is aware of reasons to seek care at the emergency department. Portions of this record may have been created with voice recognition software Level of Care: Express Care Visit Vital Signs Vital signs: Vital Signs Temperature 36.7 C 09/30/24 10:50 Pulse Rate 84 09/30/24 10:50 Respiratory Rate 18 09/30/24 10:50 Blood Pressure 111/60 09/30/24 10:50 Pulse Oximetry 100 09/30/24 10:50 Oxygen Delivery Room Air 09/30/24 10:50 Temperature 36.7 C 09/30/24 11:16 Pulse Rate 84 09/30/24 11:16 Respiratory Rate 18 09/30/24 11:16 Blood Pressure 111/60 09/30/24 11:16 Pulse Oximetry 100 09/30/24 11:16 Oxygen Delivery Room Air 09/30/24 11:16 Reviewed MDM - Extremity Injury (Lower) Differential Diagnosis Differential diagnosis: Likely fracture of toe and other (foot fracture, injury left foot from fall) Medical Records Attestation: I reviewed the patient's medical records. Imaging Data Attestation: I personally reviewed and interpreted this imaging study as follows: My impression: possible fracture at the base of proximal phalanx of the the little toe left foot Radiologist's impression: Launch?[facility] [place] [address] XRay Report Signed Patient: Mariposa Ramirez : 1955 MR#: [id number] Age: 69 Acct:[id number] Loc: [facility] ADM Date: 09/30/24Attending Dr: Ordering Physician: Dorothy Tse APRN Date of Service: 09/30/24 Procedure(s): XR foot LT min 3V Accession Number(s): [id number] cc: Dorothy Tse APRN~ XR foot LT min 3V Ordering provider: Dorothy Tse NP History: . fell when getting on toilet and hit left foot . Comparison: None. FINDINGS: BONES: Possible lucency at the base of the proximal phalanx of the little toe. This may indicate a fracture. Clinical correlation for tenderness is advised. Otherwise, No acute fracture or dislocation. Calcaneus spur. Ossification of the insertion of the tendo Achilles. JOINT SPACES: Narrowing of the proximal and distal interphalangeal joints. No tarsal coalition. SOFT TISSUES: Vascular calcifications. IMPRESSION: Possible fracture at the base of the proximal phalanx of the little toe. Clinical correlation for tenderness advised. Otherwise, No acute osseous abnormality left foot. Narrowing of the proximal and distal interphalangeal joints. Reviewed, dictated and finalized at location A. IFIED REAL ESTATE APPRAISER Dictated By: Tomy Mendenhall MD 09/30/24 1202 Signed By: <Electronically signed by Tomy Mendenhall MD in OV> Critical Care Time Critical Care Time Critical Care Time: No Discharge Plan Discharge Clinical Impression: Fracture of proximal phalanx of lesser toe of left foot Patient Disposition: Home, Self-Care Condition: Stable Instructions: Antibiotic Form, Arthralgia (ED) Additional Instructions: Elastic wrap and postop shoe Walker crutches or cane as needed Tylenol for lesser pain Ibuprofen regularly for the next 2-3 days for the inflammation Follow-up with podiatry call number [phone] establish an appointment Follow-up with PCP if further problems or concerns Ice to the area 20-30 minutes 4-6 times a day Elevate above heart Follow-up with physician for continued episodes of dizziness, monitor blood pressure at home twice daily and keep record monitor glucose levels eat meals at regular intervals and drink plenty of fluids X-ray report and disc given to patient Prescriptions: No Action levothyroxine 50 mcg tablet 50 mcg PO DAILY Rx Instructions: only Monday through Monday metformin 1,000 mg tablet 1,000 mg PO BID montelukast 10 mg tablet 10 mg PO HS carvedilol 12.5 mg tablet 12.5 mg PO DAILY duloxetine 30 mg capsule,delayed release(DR/EC) 30 mg PO DAILY prednisone 2.5 mg tablet 2.5 mg PO DAILY tramadol 50 mg tablet 50 mg PO Q6H PRN (Reason: pain) Qty: 14 0RF acetaminophen 325 mg capsule 325 mg PO Q6H PRN (Reason: Mild Pain (Scale Score 1-4)) aspirin 81 mg tablet,chewable 81 mg PO DAILY atorvastatin 80 mg tablet 80 mg PO DAILY biotin 5 mg capsule 5 mg PO DAILY calcium pantothenate 500 mg tablet 500 mg PO DAILY glipizide 5 mg tablet 5 mg PO BID Follow-up/Referrals: PHYSICIAN NOT ON STAFF,NONSTAFF [Primary Care Provider] - Time of Disposition: 12:57 [facility] Shi Coma Scale Eyes: Open Verbal: Oriented and Alert Motor: Follows Commands Dennis Coma Total Score: 15
[2024-09-30 11:16] VITALS: BP 111/60; PULSE 84; RESP 18; TEMP 36.7; O2SAT 100
== END 2024-09-30 13:00 | disposition home or self-care (01) ==
PROVIDERS: Emergency Provider Registered Nurse
DX: S92.512A Displaced fracture of proximal phalanx of left lesser toe(s), initial encounter for closed fracture (principal); W19.XXXA Unspecified fall, initial encounter; I10 Essential (primary) hypertension; E11.9 Type 2 diabetes mellitus without complications; M19.90 Unspecified osteoarthritis, unspecified site; Z79.82 Long term (current) use of aspirin
CPT/HCPCS: 73630; 99214; G0463

== ENCOUNTER 2025-02-28 12:31 | Emergency (ER) | payer MEDICARE, SELFPAY ==
[2025-02-28] VITALS (23 sets, daily range): BP systolic 118–164; BP diastolic 68–145; PULSE 80–117; RESP 13–35; O2SAT 88–100
[2025-02-28] MEDS: MORPHINE SULFATE (*CRX) 4 MG/ML INJ IV PUSH (13:22)
[2025-02-28] MEDS: ONDANSETRON INJ 4 MG/2 ML VIAL IV PUSH (13:22)
[2025-02-28 13:25] LABS: Hematocrit 38.9 % (37.0-47.0); Hemoglobin 12.4 g/dL (12.0-15.0); Mean Corpuscular HGB Conc 31.9 g/dl (32-36); Mean Corpuscular Hemoglobin 26.9 pg (26-34); Mean Corpuscular Volume 84.4 fl (80-100); Platelet Count Result 307 k/mm3 (150-375); Red Blood Count 4.61 M/mm3 (4.2-5.4); Red Cell Distribution Width 13.5 % (11.5-14.5); White Blood Count 13.4 K/mm3 (4.5-10.0)
[2025-02-28 13:33] LABS: Alanine Aminotransferase 54 U/L (6-35); Albumin Level 4.7 g/dL (3.5-5.1); Alkaline Phosphatase 178 U/L (38-126); Anion Gap 19 mmol/L (4-12); Aspartate Amino Transferase 37 U/L (14-36); Bilirubin,Total 0.8 mg/dL (0.2-1.3); Blood Urea Nitrogen 27 mg/dL (7-17); Carbon Dioxide 18 mmol/L (22-30); Chloride 106 mmol/L (98-107); Estimated CRCL calculation 30 ml/min; Estimated Glomerular Filt Rate 37; Glucose 104 mg/dL (65-110); Potassium 4.4 mmol/L (3.4-5.0); Sodium 143 mmol/L (137-145)
--- OUTSIDE RECORDS SUMMARY | 2025-02-28 14:02 | XMS_ITS | Clinical Summary ---
Author Organization [facility] Address [address] [place] [address] Care Team Providers Care Paper Deliverer Name Role Phone Tatum Rice DO Primary Care Provider Allergies Active Allergy Reactions Criticality Noted Date Comments Bupropion Headache,Other (See comments) Low 04/18/2012 Migraine headaches Codeine Nausea And Vomiting Low 04/18/2012 Body aches, Body aches Lisinopril Cough Low 06/27/2018 Mite Extract Other (See comments) Low 03/08/2013 Sinus problems. Sinus problems. Sinus problems. Acetaminophen-Codeine Nausea only Low 03/29/2020 Medications blood glucose diagnostic strip 1 each by Not Applicable route as directed 8 Active montelukast (SINGULAIR) 10 mg tablet 2 Active nilotinib (TASIGNA) 200 mg capsule Take 2 capsules (400 mg total) by mouth 2 (two) times a day 1 Active meclizine (ANTIVERT) 25 mg tablet Take 1 tablet (25 mg total) by mouth 2 (two) times a day 0 Active levothyroxine (SYNTHROID) 50 mcg tablet Take 1 tablet (50 mcg total) by mouth store coordinator before breakfast 2 Active gabapentin (NEURONTIN) 300 mg capsule Take 1 capsule (300 mg total) by mouth 3 (three) times a day 1 Active clonazePAM (KlonoPIN) 0.5 mg tablet Take 1 tablet (0.5 mg total) by mouth 2 (two) times a day 2 2 Active aspirin 81 mg chewable tablet Take 1 tablet (81 mg total) by mouth daily Active atorvastatin (LIPITOR) 80 mg tablet Take 1 tablet (80 mg total) by mouth daily [address] (CYMBALTA) 60 mg capsule Take 1 capsule (60 mg total) by mouth daily 2 Active clopidogreL (PLAVIX) 75 mg tablet Take 1 tablet (75 mg total) by mouth daily Active carvediloL (COREG) 12.5 mg tablet Take 1 tablet (12.5 mg total) by mouth 2 (two) times a day with meals Active aluminum-magnes ium hydroxide suspension 200-200 mg/5 mL Take 15 mL by mouth every 6 (six) hours as needed for heartburn Active cyanocobalamin (Vitamin B-12) 1,000 mcg tablet Take 1 tablet (1,000 mcg total) by mouth daily Active glucosamine-msm -magnesium-vitC capsule Take 1 capsule by mouth daily Active cyclobenzaprine (FLEXERIL) 10 mg tablet Take 1 tablet (10 mg total) by mouth 3 (three) times a day as needed for muscle spasms Active cetirizine 10 mg capsule Take 1 capsule by mouth daily Active calcium carbonate-vitam in D3 1,250 mg (500 mg elemental)-600 unit tablet Take 1 tablet by mouth daily Active biotin 5 mg tablet Take 1 tablet by mouth daily Active glipiZIDE (GLUCOTROL) 5 mg tablet Take 1 tablet (5 mg total) by mouth 2 (two) times a day Active insulin aspart (NovoLOG) 100 unit/mL (3 mL) pen for injection Inject 6 Units under the skin 3 (three) times a day + Sliding scale. Max daily dose of 50 units. Active insulin glargine 100 unit/mL (3 mL) pen for injection Inject 25 Units under the skin daily Active diclofenac sodium (VOLTAREN) 1 % gel Apply 2 g topically 3 (three) times a day 5 Active senna-docusate (PERICOLACE) 8.6-50 mg Take 1 tablet by mouth 2 (two) times a day 5 Active oxyCODONE (ROXICODONE) 5 mg immediate release tabletIndicatio ns:Pain Take 1 tablet (5 mg total) by mouth every 4 (four) hours as needed for pain 5 Active levETIRAcetam (KEPPRA) 500 mg tablet Take 1 tablet (500 mg total) by mouth 2 (two) times a day 5 01/26/20 26 Active levETIRAcetam (KEPPRA) 500 mg tablet Take 1 tablet (500 mg total) by mouth nightly 5 01/26/20 26 Active acetaminophen 500 mg capsule Take 2 capsules (1,000 mg total) by mouth every 6 (six) hours as needed for fever 5 Active bisacodyL (DULCOLAX) 10 mg suppository Insert 1 suppository (10 mg total) into the rectum daily as needed for constipation 5 Active docusate sodium (COLACE) 100 mg capsuleIndicati ons:constipatio n,Stool Softener Take 1 capsule (100 mg total) by mouth 2 (two) times a day 5 Active famotidine (PEPCID) 10 mg tablet Take 1 tablet (10 mg total) by mouth daily 5 01/27/20 Active lidocaine (LIDODERM) 5 % Place 2 patches on the skin daily Remove & discard patch within 12 hours or as directed by MD. 5 Active Active Problems Problem Noted Date Diagnosed Date Subdural hematoma 01/20/2025 PAD (peripheral artery disease) 01/13/2025 Assessment & Plan (01/13/2025 10:52 AM CART PUSHER): - 01/07 Patient underwent L JAILKEEPER/Stenting of the proximal PT, Dr. Mark Oscar [facility] - On ASA, prescribed plavix postprocedurally - next procedure scheduled for 02/11 and carotid US scheduled. - 01/10 Plavix resumed Discharge planning issues 01/13/2025 Assessment & Plan (01/14/2025 12:08 PM CART PUSHER): 01/09 admitted 01/13 remain in OU with Q2 hour neuro checks 01/14: Patient is medically stable for discharge, SW/CM updated. Discharge pending facility bed availability Treatment noted done 01/14 [x] Fracture of right clavicle 01/10/2025 Assessment & Plan (01/13/2025 10:41 AM CART PUSHER): - b/l clavicle Xrays: shortening of left clavicle which may be related to prior clavicular excision or post-traumatic osteolysis - Ortho c/s - Non-operative management, Sling - CCWB RUE - PT/OT Orthopedic S/O Recs (01/10): WB Status: Coffee cup weight bearing right upper extremity Immobilization: sling, out of sling for early ROM Activity: Ambulate with assist Therapy: PT/OT for OOB/mobilization as tolerated. Follow-Up: Patient has follow up scheduled on 02/[address] Campos located at [facility] Acute traumatic pain 01/10/2025 Assessment & Plan (01/13/2025 10:30 AM CART PUSHER): - Tylenol 650mg q6h - Gabapentin 300mg BID - Lidocaine patch - Robaxin 500mg TID - Oxycodone 5mg q4h PRN SDH (subdural hematoma) 01/09/2025 Assessment & Plan (01/14/2025 11:58 AM CART PUSHER): SDH with Left Midline shift 3mm - Neurosurgery consult - Platelet goal >100; 2u plts per NSGY given recent plavix - Keppra 500 BID - q2hr neuro checks - Hold DVT ppx 01/09: S/p unsuccessful MMA embolization, possible transfusion reaction following 1u plt, repeat HCT with slight decreased in SDH size 01/10: NSGY recs: decision to restart plavix: if restarts q2h neurochecks, if holds q4h neurochecks - BI consult - PM&R consult 01/10 plavix resumed 3/2 NSGY Recs: Plavix started on 01/10. Exam has been stable. Head CTs have been reassuring. 3/4 Neuro exams liberalized, Transferred to the floor. - Outpatient follow up tasked with NSGY in 4 weeks with a repeat Head CT Fall, initial encounter 06/18/2023 Syncope and collapse 05/23/2023 Depression 10/05/2022 Assessment & Plan (01/13/2025 10:58 AM CART PUSHER): - Continue home cymbalta 60 mg daily Diabetes mellitus 10/05/2022 Assessment & Plan (01/13/2025 10:37 AM CART PUSHER): - Home regimen: Lantus 25units HS + FIASP (Insulin Aspart) 6units TID w/meals 3/ A1c 6.9 -SSI Lispro high slide -Lantus 8 Qhs and Lispro 6 ac -monitor glucose adjust as needed Knee pain, left 10/05/2022 Hypothyroidism 08/24/2022 Assessment & Plan (01/10/2025 10:16 AM CART PUSHER): - Continue Levothyroxine 50mcg daily Osteopenia 06/01/2022 Left hand fracture, closed, initial encounter Abrasion of left elbow 05/30/2022 Sprain of left knee 05/30/2022 Fall, accidental, initial encounter 05/30/2022 Assessment & Plan (01/14/2025 12:05 PM CART PUSHER): - CT H/C spine from OSH with 12 mm R SDH - CXR, pelvis XR negative - CT T/L spine negative - CT CAP negative - R clavicular fx - Trauma labs grossly normal - 01/09 Carotid duplex: No hemodynamically significant stenosis in the common carotid artery bilaterally. Seizures 03/08/2022 Assessment & Plan (01/13/2025 10:43 AM CART PUSHER): Chronic Home Keppra 500 mg bid Iron deficiency anemia due to chronic blood loss 01/16/2021 Seasonal allergies 07/22/2020 Cervical spondylosis with radiculopathy 03/28/20 19 Multiple thyroid nodules 03/28/2019 Vitamin B12 deficiency 03/28/2019 Normocytic anemia 12/13/2018 Abnormal mammogram 06/27/2018 Hyperplastic polyp of transverse colon 8 Overview (08/24/2022): Overview: 02/13/2013 colon cancer screenin - 5 mm polyps both hyperplastic Primary osteoarthritis of both knees 09/20/2017 Major depressive disorder with single episode, i n remission 02/02/2016 Essential (primary) hypertension 10/13/2015 Assessment & Plan (01/14/2025 12:05 PM CART PUSHER): Home med - Metoprolol 25 mg BID, carvedilol 12.5 BID, atorvastatin 80 mg daily - Continue Coreg 12.5mg BID Hyperlipidemia 10/13/2015 Assessment & Plan (01/10/2025 10:16 AM CART PUSHER): - Continue Atorvastatin 80mg HS Anxiety disorder 02/11/2013 Assessment & Plan (01/13/2025 10:34 AM CART PUSHER): - Continue Duloxetine 60mg daily 01/13 resume Clonazepam 0.5mg BID for anxiety Obstructive sleep apnea 02/11/2013 Type 2 diabetes mellitus without complications 0 02/11/2013 Chronic myeloid leukemia, BC R/ABL-positive, not having achieved remission 04/18/2012 Assessment & Plan (01/13/2025 10:57 AM CART PUSHER): #CML - On asciminib Encounters Date Type Department Care Team Description 02/19/2025 10:45 AM CDT - 02/19/2025 5:21 PM CDT Emergency [facility] Emergency Department [address] [place] [phone] Trae Mtz MD Safa, Rawan Ahmad, MD Lightheadedness (Primary Dx); Vasovagal near syncope; History of subdural hematoma Discharge Disposition: Discharge to home or self care 02/19/2025 Telephone [facility] Orthopaedic Surgery [facility] Advanced Medicine 6th [place] [address] [place] [address] Mable Campos MD 02/19/2025 Results Follow-Up [facility] Emergency Department [address] [place] [phone] Graham Macdonald RN 02/17/2025 Orders Only [facility] Neurosurgery [address] [facility] Floor 1, [address] [place] [phone] Bernardo Lorenz MD Subdural hematoma (HCC) (Primary Dx) 02/14/2025 3:30 PM CDT Telemedicine [facility] Neurosurgery [facility] [facility] Floor 1, [address] [place] [address] Bernardo Lorenz MD Subdural hematoma (HCC) (Primary Dx) 02/14/2025 8:53 AM CDT - 02/14/2025 11:59 PM CDT Hospital Encounter [facility] - [place] [address] Floor 8 [place] [address] SDH (subdural hematoma) (HCC) Discharge Disposition: Discharge to home or self care 02/14/2025 Telephone [facility] Neurosurgery [address] [place] [address] Floor 1, [address] [place] [phone] Diamond Manley RN 01/27/2025 Orders Only [facility] Neurosurgery [address] [place] [address] Floor 1, [address] [place] [phone] Bernardo Lorenz MD Subdural hematoma (HCC) (Primary Dx) 01/20/2025 7:00 PM CDT - 01/20/2025 9:40 PM CDT Surgery [facility] Operating Room [address] [place] [address] Bernardo Lorenz MD CODY HOLES/EVACUATION OR DRAINAGE EXTRADURAL/SUBDURAL HEMATOMA 01/20/2025 6:40 PM CDT Anesthesia Event [facility] Operating Room [address] [place] [address] Ricky Hendrickson MD PhD Freeman Portillo MD 01/20/2025 12:11 PM CDT - 01/25/2025 10:05 PM CDT Hospital Encounter [address] [address] Lonnie Laguna MD Patel, Bhuvic, MD Subdural hematoma (HCC) (Primary Dx); Transient alteration of awareness Discharge Disposition: Discharge to an Rehab facility 01/16/2025 Orders Only [facility] Neurosurgery [address] [place] [address] Floor 1, [address] [place] [address] Avril Fontenot NP SDH (subdural hematoma) (HCC) (Primary Dx) 01/10/2025 8:00 AM CART PUSHER Ancillary Procedure [facility] Vascular Lab IP [address] [facility] [address] [place] [address] 01/09/2025 4:54 AM CART PUSHER - 01/15/2025 3:57 PM CART PUSHER Hospital Encounter [address] [address] Jeff Slaughter MD Kipfer, DO Stacia Plata, MD Jose Oliveira, Arnoldo Saha MD SDH (subdural hematoma) (HCC) (Primary Dx) Discharge Disposition: Discharge to an IP Rehab facility 01/09/2025 4:50 AM CART PUSHER - 01/09/2025 11:59 PM CART PUSHER Hospital Encounter [facility] Emergency, Room R Discharge Disposition: Discharge to home or self care 01/09/2025 2:24 AM CART PUSHER - 01/09/2025 4:20 AM CART PUSHER Emergency [facility] Emergency Department [address] [place] [address] Flori Dugan MD Subdural hemorrhage (HCC) (Primary Dx); Closed displaced fracture of acromial end of right clavicle, initial encounter Discharge Disposition: Discharge to not defined facility 01/09/2025 2:05 AM CART PUSHER - 01/09/2025 11:59 PM CART PUSHER Hospital Encounter [facility] Emergency, Room R Discharge Disposition: Discharge to home or self care 01/09/2025 Orders Only [facility] Neuro Interventional Radiology [address] [place] [address] Aaliyah Alvarez, RN 01/09/2025 Orders Only [facility] Radiology [address] [place] [address] Otto Alvarez, FELIZ from Last 3 Months Surgical History Surgery Date Site/Laterality Comments 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 01/09/2025 Right Medical History Medical History Date Comments Leukemia (HCC) Diabetes mellitus (HCC) Seizures (HCC) Hypertension Leukemia (HCC) Family History Medical History Relation Name Comments Diabetes Brother Heart disease Brother Seizures Father Stroke Maternal Grandmother Diabetes Mother Heart disease Mother Relation Name Status Comments Brother Father Maternal Grandmother Mother Social History Tobacco Use Types Packs/Day Years Used Date Smoking Tobacco: Never Smokeless Tobacco: Never Alcohol Use Standard Drinks/Week Comments Not Currently 0 (1 standard drink = 0.6 oz pur e alcohol) [facility] Utilities Answer Date Recorded In the past 12 months has e [employer], gas, oil, or water [employer] threatened to shut off services in your home? No 01/22/2025 Social Connection and Isolat ion Panel [NHANES] Answer Date Recorded In a typical week, how many times do you talk on the phone with family, friends, or neighbors? More than three times a week 01/22/2025 How often do you get togethe r with friends or relatives? More than three times a week 01/22/2025 How often do you attend chur ch or christianity services? More than 4 times per year 01/22/2025 Do you belong to any clubs o r organizations such as yazidism groups, unions, fraternal or athletic groups, or school groups? Yes 01/22/2025 How often do you attend meet ings of the clubs or organizations you belong to? More than 4 times per year 01/22/2025 Are you , , di vorced, , never , or living with a partner? 01/22/2025 AUDIT-C Answer Date Recorded Q1: How often do you have a drink containing alc ohol? Never 06/18/2023 Average Number of Drinks Not on file 023 Frequency of Binge Drinking Not on file 04/2023 Overall Financial Resource Strain (CARDIA) Answe r Date Recorded How hard is it for you to pa y for the very basics like food, housing, medical care, and heating? Not very hard 01/22/2025 PHQ-2 Answer Date Recorded PHQ-2 Total Score 3 01/22/2025 Hunger Vital Sign Answer Date Recorded Within the past 12 months, y ou worried that your food would run out before you got the money to buy more. Never true 01/23/20 25 Within the past 12 months, t he food you bought just didn't last and you didn't have money to get more. Never true 01/22/2025 PRAPARE - Transportation Answer Date Re corded In the past 12 months, has l ack of transportation kept you from medical appointments or from getting medications? No 01/11 In the past 12 months, has l ack of transportation kept you from meetings, work, or from getting things needed for daily living? No 01/22/2025 Housing Stability Vital Sign Answer Angelo e Recorded In the last 12 months, was t here a time when you were not able to pay the mortgage or rent on time? No 06/20/2023 In the last 12 months, how many places have you lived? 1 06/20/2023 In the last 12 months, was t here a time when you did not have a steady place to sleep or slept in a alf (including now)? No 06/20/2023 PHQ-9 Answer Date Recorded PHQ-9 Total Score 10 01/22/2025 Housing Stability Vital Sign Answer Angelo e Recorded In the last 12 months, was t here a time when you were not able to pay the mortgage or rent on time? No 01/22/2025 In the past 12 months, how m any times have you moved where you were living? 0 01/22/2025 At any time in the past 12 m [facility], were you homeless or living in a alf (including now)? No 01/22/2025 Personal Safety Answer Date Recorded Have you ever been in or are you currently in a harmful physical or emotional relationship or is someone making you feel afraid or unsafe? Denies 02/19/2025 Education Answer Date Recorded What is the highest level of school you have completed or the highest degree you have received? Some college, no degree 05/24/2023 Comments No Sex and Gender Information Value Date Recorded Sex Assigned at Not on file Legal Sex Female 7:59 PM CART PUSHER Gender Identity Not on file Sexual Orientation Not on file Obstetrics History Last Filed Vital Signs Vital Sign Reading Time Taken Comments Blood Pressure 144/71 02/19/2025 5:00 PM CDT Pulse 72 02/19/2025 5:00 PM CDT Temperature 36.7 C (98.1 F) 02/19/2025 10:24 AM CDT Respiratory Rate 16 02/19/2025 4:00 PM CDT Oxygen Saturation 94% 02/19/2025 5:00 PM CDT Inhaled Oxygen Concentration - - Weight 66.7 kg (147 lb) 02/19/2025 10:26 AM CDT Height 165.1 cm (5' 5 ) 02/19/2025 10:26 AM CDT Body Mass Index 24.46 02/19/2025 10:26 AM CDT Plan of Treatment Health Maintenance Due Date Last Done Comments Albumin Creatinine Ratio, Urine 1955 Colon Cancer Screening-Colonoscopy 1955 Hepatitis C Screening 1955 Dilated Eye Exam 1955 Foot Exam 1955 Hepatitis B Screening 1973 Well Visit 65+ 2020 Osteoporosis Screening-Bone Density Scan 02/05/2023 02/05/2021, 02/05/2021 Breast Cancer Screening-Mammogram 02/10/2024 02/09/2023, 02/09/2023, 02/05/2021, Additional history exists Covid-19 Vaccine ( - 2023-2 5 season) 2024 01/05/2022, 01/04/2022, 07/20/2021, Additional history exists Hemoglobin A1C 07/16/2025 01/13/2025, 01/12, 07/04/2018 Pneumococcal vaccine 65+ (4 of 4 - PCV20 or PCV21) 07/22/2025 07/22/2020, 12/12/2018, 11/13/2012 Depression Screening 01/20/2026 01/20/2025, 01/21/20 25 Lipid Panel 01/20/2026 01/20/2025, 01/20/2025 Fall Risk Assessment 01/25/2026 01/25/2025 eGFR 02/19/2026 02/19/2025, 01/11, 01/23/2025, Additional history exists DTaP/Tdap/Td Vaccine (3 - Td or Tdap) 12/22/2033 12/22/2023, 04/30/2013, 04/30/2013 Zoster Vaccine Completed 02/12/2019, 12/13/2018 Influenza Vaccine Completed 11/27/2024, , 08/24/2022, Additional history exists Procedures Procedure Name Priority Date/Time Associated Diagnosis Comments POCT GLUCOSE DEVICE Routine 02/19/2025 1 :56 PM CDT APTT STAT 02/19/2025 1:07 PM CDT PROTIME-INR STAT 02/19/2025 1:07 PM CDT TROPONIN I HIGH-SENSITIVITY 2-HOUR Timed 02/19/2025 1:[address] HEAD WO CONTRAST ED Urgent/IP Urgent 02/19/2025 11:47 AM CDT EGFR STAT 02/19/2025 11:34 AM CDT DIFFERENTIAL AUTO STAT 02/19/2025 11: 34 AM CDT TROPONIN I HIGH-SENSITIVITY SERIES (BASELINE, 2HR, 4HR, 6HR) STAT 02/19/2025 11:34 AM CDT COMPREHENSIVE METABOLIC PANEL STAT 02/19/2025 11:34 AM CDT CBC WITH AUTO DIFFERENTIAL STAT 02/19/2025 11:34 AM CDT POCT GLUCOSE DEVICE Routine 02/19/2025 1 1:12 AM CDT POCT GLUCOSE DEVICE Routine 02/19/2025 1 0:29 AM CDT POCT GLUCOSE DEVICE Routine 02/19/2025 1 0:[address] HEAD WO CONTRAST Schedule Routine, Read Routine (OP Routine) 02/14/2025 9:07 AM CDT SDH (subdural hematoma) (HCC) ECG 12-LEAD STAT 02/14/2025 7:08 AM CDT POCT GLUCOSE DEVICE Routine 01/25/2025 8 :45 PM CDT POCT GLUCOSE DEVICE Routine 01/25/2025 1 2:01 PM CDT POCT GLUCOSE DEVICE Routine 01/25/2025 7 :57 AM CDT EGFR Routine 01/24/2025 9:18 PM CDT CBC WITHOUT DIFFERENTIAL Routine 01/24/2025 9:18 PM CDT BASIC METABOLIC PANEL Routine 01/24/2025 9:18 PM CDT POCT GLUCOSE DEVICE Routine 01/24/2025 9 :06 PM CDT POCT GLUCOSE DEVICE Routine 01/24/2025 6 :55 PM CDT POCT GLUCOSE DEVICE Routine 01/24/2025 5 :45 PM CDT POCT GLUCOSE DEVICE Routine 01/24/2025 1 2:31 PM CDT POCT GLUCOSE DEVICE Routine 01/24/2025 8 :07 AM CDT EGFR Routine 01/23/2025 9:27 PM CDT CBC WITHOUT DIFFERENTIAL Routine 01/23/2025 9:27 PM CDT BASIC METABOLIC PANEL Routine 01/23/2025 9:27 PM CDT POCT GLUCOSE DEVICE Routine 01/23/2025 9 :18 PM CDT POCT GLUCOSE DEVICE Routine 01/23/2025 5 :11 PM CDT POCT GLUCOSE DEVICE Routine 01/23/2025 1 2:38 PM CDT POCT GLUCOSE DEVICE Routine 01/23/2025 7 :35 AM CDT POTASSIUM, WHOLE BLOOD STAT 01/23/2025 12:25 AM CDT EGFR Routine 01/22/2025 9:13 PM CDT CBC WITHOUT DIFFERENTIAL Routine 01/22/2025 9:13 PM CDT BASIC METABOLIC PANEL Routine 01/22/2025 9:13 PM CDT POCT GLUCOSE DEVICE Routine 01/22/2025 9 :12 PM CDT POCT GLUCOSE DEVICE Routine 01/22/2025 5 :08 PM CDT POCT GLUCOSE DEVICE Routine 01/22/2025 1 1:26 AM CDT CONTINUOUS VIDEO EEG Routine 01/22/2025 10:52 AM CDT ECG 12-LEAD STAT 01/22/2025 9:05 AM CDT POCT GLUCOSE DEVICE Routine 01/22/2025 7 :48 AM CDT POTASSIUM, WHOLE BLOOD Timed 01/22/2025 6:27 AM CDT POCT GLUCOSE DEVICE Routine 01/22/2025 6 :[address] HEAD WO CONTRAST IP Routine 01/22/2025 4 :45 AM CDT FOLATE Routine 01/22/2025 12:30 AM CDT IRON PROFILE W/ IBC Routine 01/22/2025 1 2:30 AM CDT MAGNESIUM Routine 01/22/2025 12:30 AM CDT EGFR Routine 01/22/2025 12:30 AM CDT PHOSPHORUS Routine 01/22/2025 12:30 AM CDT CBC WITHOUT DIFFERENTIAL Routine 01/22/2025 12:30 AM CDT BASIC METABOLIC PANEL Routine 01/22/2025 12:30 AM CDT POCT GLUCOSE DEVICE Routine 01/21/2025 9 :07 PM CDT POCT GLUCOSE DEVICE Routine 01/21/2025 5 :56 PM CDT POCT GLUCOSE DEVICE Routine 01/21/2025 1 2:00 PM CDT POCT GLUCOSE DEVICE Routine 01/21/2025 5 :29 AM CDT MAGNESIUM Routine 01/21/2025 4:49 AM CDT EGFR Routine 01/21/2025 4:49 AM CDT BASIC METABOLIC PANEL Routine 01/21/2025 4:[address] HEAD WO CONTRAST Timed 01/21/2025 3 :49 AM CDT POCT GLUCOSE DEVICE Routine 01/20/2025 1 1:57 PM CDT URINALYSIS, MICROSCOPIC ONLY STAT 01/20/2025 8:32 PM CDT FENTANYL CONFIRMATION, MS URINE STAT 01/20/2025 8:32 PM CDT EGFR Timed 01/20/2025 8:32 PM CDT DRUGS OF ABUSE SCREEN, URINE WITH REFLEX CONFIRMATION STAT 01/20/2025 8:32 PM CDT PHOSPHORUS Timed 01/20/2025 8:32 PM CDT MAGNESIUM Timed 01/20/2025 8:32 PM CDT COMPREHENSIVE METABOLIC PANEL Timed 01/20/2025 8:32 PM CDT CBC WITHOUT DIFFERENTIAL Routine 01/20/2025 8:32 PM CDT URINE CULTURE STAT 01/20/2025 8:32 PM CDT URINALYSIS AND REFLEX TO MICROSCOPIC AND CULTURE STAT 01/20/2025 8:[address] HEAD WO CONTRAST ED Urgent/IP Urgent 01/20/2025 8:23 PM CDT PA AN PROCEDURE PLACEHOLDER Routine 01/20/2025 7:17 PM CDT PA AN ELECTIVE ENDOTRACHEAL AIRWAY Routine 01/20/2025 7:17 PM CDT TRANSFUSE PLATELETS Timed 01/20/2025 7 :00 PM CDT CODY HOLES/EVACUATION OR DRAINAGE EXTRADURAL/SUBDURAL HEMATOMA 01/20/2025 6:40 PM CDT Subdural hematoma (HCC) TRANSFUSE PLATELETS Timed 01/20/2025 6 :22 PM CDT POCT GLUCOSE DEVICE Routine 01/20/2025 6 :[address] OUTSIDE REFERENCE Routine 01/20/2025 5:[address] HEAD WO CONTRAST ED Urgent/IP Urgent 01/20/2025 4:59 PM CDT TRANSFUSE RED BLOOD CELLS Timed 01/20/2025 4:20 PM CDT TROPONIN I HIGH-SENSITIVITY SERIES (BASELINE, 2HR, 4HR, 6HR) STAT 01/20/2025 3:44 PM CDT URINALYSIS, MICROSCOPIC ONLY STAT 01/20/2025 3:32 PM CDT URINE CULTURE STAT 01/20/2025 3:32 PM CDT URINALYSIS AND REFLEX TO MICROSCOPIC AND CULTURE STAT 01/20/2025 3:32 PM CDT GAMMA GT STAT 01/20/2025 3:29 PM CDT CREATINE KINASE (CK), TOTAL STAT 01/20/2025 3:29 PM CDT TYPE AND SCREEN STAT 01/20/2025 3:29 PM CDT PHOSPHORUS STAT 01/20/2025 3:29 PM CDT MAGNESIUM STAT 01/20/2025 3:29 PM CDT ECG 12-LEAD STAT 01/20/2025 3:26 PM CDT POCT GLUCOSE DEVICE Routine 01/20/2025 3 :10 PM CDT PA CRITICAL CARE ILL/INJURED PATIENT INIT 30-74 MIN Routine 01/20/2025 1:55 PM CDT PREPARE PLATELETS Timed 01/20/2025 1:0 8 PM CDT PREPARE RBC Timed 01/20/2025 1:03 PM CDT XR CHEST 1 VIEW ED Urgent/IP Urgent 01/20/2025 12:47 PM CDT ANTIBODY SCREEN Timed 01/20/2025 12:40 PM CDT ABO/RH Timed 01/20/2025 12:40 PM CDT PREPARE PLATELETS Timed 01/20/2025 12: 37 PM CDT POCT GLUCOSE DEVICE Routine 01/20/2025 1 2:28 PM CDT LIPID PANEL STAT 01/20/2025 12:28 PM CDT EGFR STAT 01/20/2025 12:28 PM CDT DIFFERENTIAL AUTO STAT 01/20/2025 12: 28 PM CDT PROTIME-INR STAT 01/20/2025 12:28 PM CDT APTT STAT 01/20/2025 12:28 PM CDT SEPSIS LACTATE WITH REFLEX STAT 01/20/2025 12:28 PM CDT COMPREHENSIVE METABOLIC PANEL STAT 01/20/2025 12:28 PM CDT CBC WITH AUTO DIFFERENTIAL STAT 01/20/2025 12:28 PM CDT POCT GLUCOSE DEVICE Routine 01/15/2025 1 2:04 PM CART PUSHER HEMOGLOBIN AND HEMATOCRIT STAT 01/15/2025 10:11 AM CART PUSHER POCT GLUCOSE DEVICE Routine 01/15/2025 8 :01 AM CART PUSHER POCT GLUCOSE DEVICE Routine 01/14/2025 8 :17 PM CART PUSHER POCT GLUCOSE DEVICE Routine 01/14/2025 5 :13 PM CART PUSHER POCT GLUCOSE DEVICE Routine 01/14/2025 1 1:37 AM CART PUSHER POCT GLUCOSE DEVICE Routine 01/14/2025 7 :35 AM CART PUSHER POCT GLUCOSE DEVICE Routine 01/13/2025 8 :35 PM CART PUSHER POCT GLUCOSE DEVICE Routine 01/13/2025 4 :55 PM CART PUSHER POCT GLUCOSE DEVICE Routine 01/13/2025 1 1:14 AM CART PUSHER HEMOGLOBIN A1C Routine 01/13/2025 8:30 AM CART PUSHER POCT GLUCOSE DEVICE Routine 01/13/2025 7 :31 AM CART PUSHER POCT GLUCOSE DEVICE Routine 01/12/2025 1 1:[address] HEAD WO CONTRAST ED Urgent/IP Urgent 01/12/2025 11:33 PM CART PUSHER POCT GLUCOSE DEVICE Routine 01/12/2025 9 :56 PM CART PUSHER POCT GLUCOSE DEVICE Routine 01/12/2025 5 :12 PM CART PUSHER POCT GLUCOSE DEVICE Routine 01/12/2025 1 1:36 AM CART PUSHER POCT GLUCOSE DEVICE Routine 01/12/2025 8 :11 AM CART PUSHER EGFR Routine 01/11/2025 9:49 PM CART PUSHER PHOSPHORUS Routine 01/11/2025 9:49 PM CART PUSHER MAGNESIUM Routine 01/11/2025 9:49 PM CART PUSHER CBC WITHOUT DIFFERENTIAL Routine 01/11/2025 9:49 PM CART PUSHER BASIC METABOLIC PANEL Routine 01/11/2025 9:49 PM CART PUSHER POCT GLUCOSE DEVICE Routine 01/11/2025 8 :43 PM CART PUSHER POCT GLUCOSE DEVICE Routine 01/11/2025 6 :46 PM CART PUSHER CRITICAL CARE Routine 01/11/2025 2:33 PM CART PUSHER SDH (subdural hematoma) (HCC) POCT GLUCOSE DEVICE Routine 01/11/2025 1 1:42 AM CART PUSHER POCT GLUCOSE DEVICE Routine 01/11/2025 6 :54 AM CART PUSHER POCT GLUCOSE DEVICE Routine 01/11/2025 3 :02 AM CART PUSHER POCT GLUCOSE DEVICE Routine 01/10/2025 1 1:09 PM CART PUSHER EGFR Routine 01/10/2025 8:56 PM CART PUSHER MAGNESIUM Routine 01/10/2025 8:56 PM CART PUSHER PHOSPHORUS Routine 01/10/2025 8:56 PM CART PUSHER CBC WITHOUT DIFFERENTIAL Routine 01/10/2025 8:56 PM CART PUSHER BASIC METABOLIC PANEL Routine 01/10/2025 8:56 PM CART PUSHER POCT GLUCOSE DEVICE Routine 01/10/2025 7 :00 PM CART PUSHER CRITICAL CARE Routine 01/10/2025 6:00 PM CART PUSHER SDH (subdural hematoma) (HCC) POCT GLUCOSE DEVICE Routine 01/10/2025 3 :[address] HEAD WO CONTRAST ED Urgent/IP Urgent 01/10/2025 2:09 PM CART PUSHER US CAROTIDS DUPLEX BILATERAL ED Urgent/IP Urgent 01/10/2025 11:28 AM CART PUSHER POCT GLUCOSE DEVICE Routine 01/10/2025 1 1:02 AM CART PUSHER TRANSTHORACIC ECHO (TTE) COMPLETE W DOPPLER/CF W CONTRAST STAT 01/10/2025 8:25 AM CART PUSHER CRITICAL CARE Routine 01/10/2025 8:10 AM CART PUSHER SDH (subdural hematoma) (HCC) POCT GLUCOSE DEVICE Routine 01/10/2025 6 :53 AM CART PUSHER POCT GLUCOSE DEVICE Routine 01/10/2025 2 :59 AM CART PUSHER POCT GLUCOSE DEVICE Routine 01/09/2025 1 1:08 PM CART PUSHER POCT GLUCOSE DEVICE Routine 01/09/2025 7 :25 PM CART PUSHER EGFR STAT 01/09/2025 6:30 PM CART PUSHER LACTATE, WHOLE BLOOD STAT 01/09/2025 6:30 PM CART PUSHER CBC WITHOUT DIFFERENTIAL STAT 01/09/2025 6:30 PM CART PUSHER PHOSPHORUS STAT 01/09/2025 6:30 PM CART PUSHER MAGNESIUM STAT 01/09/2025 6:30 PM CART PUSHER COMPREHENSIVE METABOLIC PANEL STAT 01/09/2025 6:30 PM CART PUSHER POCT GLUCOSE DEVICE Routine 01/09/2025 6 :16 PM CART PUSHER CRITICAL CARE Routine 01/09/2025 6:00 PM CART PUSHER DIRECT ANTIGLOBULIN TEST Routine 01/09/2025 2:51 PM CART PUSHER POCT GLUCOSE DEVICE Routine 01/09/2025 2 :26 PM CART PUSHER TRANSFUSION REACTION EVALUATION STAT 01/09/2025 2:24 PM CART PUSHER TRANSFUSION REACTION IMMEDIATE STAT 01/09/2025 2:24 PM CART PUSHER TYPE AND SCREEN STAT 01/09/2025 2:24 PM CART PUSHER 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 ED Urgent/IP Urgent 01/09/2025 1:27 PM CART PUSHER TRANSFUSE PLATELETS Timed 01/09/2025 1 0:32 AM CART PUSHER URINALYSIS AND REFLEX TO MICROSCOPIC AND CULTURE STAT 01/09/2025 10:[address] HEAD WO CONTRAST Timed 01/09/2025 9 :17 AM CART PUSHER TRANSFUSE PLATELETS Timed 01/09/2025 8 :52 AM CART PUSHER PA CRITICAL CARE ILL/INJURED PATIENT INIT 30-74 MIN Routine 01/09/2025 7:50 AM CART PUSHER TROPONIN I HIGH-SENSITIVITY 2-HOUR Timed 01/09/2025 6:47 AM CART PUSHER B CHECK SAMPLE STAT 01/09/2025 6:39 AM CART PUSHER XR CLAVICLE BILATERAL COMPLETE ED 01/09/2025 6:15 AM CART PUSHER ECG 12-LEAD Routine 01/09/2025 5:[address] RECON THORACIC AND LUMBAR SPINE W CONTRAST ED 01/09/2025 5:[address] CHEST ABDOMEN PELVIS W CONTRAST ED 01/09/2025 5:49 AM CART PUSHER PREPARE PLATELETS Timed 01/09/2025 5:1 8 AM CART PUSHER DIFFERENTIAL AUTO STAT 01/09/2025 5:1 2 AM CART PUSHER CBC WITH AUTO DIFFERENTIAL STAT 01/09/2025 5:12 AM CART PUSHER TROPONIN I HIGH-SENSITIVITY SERIES (BASELINE, 2HR, 4HR, 6HR) STAT 01/09/2025 5:12 AM CART PUSHER TYPE AND SCREEN STAT 01/09/2025 5:12 AM CART PUSHER RESPIRATORY PATHOGEN PANEL STAT 01/09/2025 5:12 AM CART PUSHER XR PELVIS 1 OR 2 VIEWS ED 01/09/2025 5:[address] CERVICAL SPINE WO CONTRAST ED 01/09/2025 3:42 AM CART PUSHER PA CRITICAL CARE ILL/INJURED PATIENT INIT 30-74 MIN Routine 01/09/2025 3:41 AM CART PUSHER XR CHEST 1 VIEW ED 01/09/2025 3:08 AM CART PUSHER XR SHOULDER RIGHT 2 OR MORE VIEWS ED 01/09/2025 3:08 AM CART PUSHER PROTIME-INR STAT 01/09/2025 3:[address] HEAD WO CONTRAST ED 01/09/2025 2 :55 AM CART PUSHER POCT GLUCOSE DEVICE Routine 01/09/2025 2 :43 AM CART PUSHER EGFR STAT 01/09/2025 2:38 AM CART PUSHER DIFFERENTIAL AUTO STAT 01/09/2025 2:3 8 AM CART PUSHER COMPREHENSIVE METABOLIC PANEL STAT 01/09/2025 2:38 AM CART PUSHER CBC WITH AUTO DIFFERENTIAL STAT 01/09/2025 2:38 AM CART PUSHER from Last 3 Months Results * POCT glucose (02/19/2025 1:56 PM CDT) Glucose, POC 97 70 - 199 mg/dL Blood 02/19/2025 1:56 PM CDT 02/19/2025 1:56 PM CDT us Trae Mtz MD LAB POCT ORDERABLES - DEV ICE Final Result [facility] [place] [address] * Troponin I high-sensitivity 2-hour (02/19/2025 1:07 PM CDT) Trop I hs <4 <=17 ng/L Comment: Interpretive Data For further hscTnI resources including the diagnostic algorithm and an aid in interpretation, copy and paste this link: https://bjhlab.testcatalog.org/show/hsTrop-[email or web address] Current Interpretive Data last revised 2020. Trop I hs delta 0 ng/L DARINEL CUBA Trop I hs interp Insignificant DARINEL CUBA Blood 02/19/2025 1:07 PM CDT 02/19/2025 1:14 PM CDT Steven Babcock Jr., MD LAB BLOOD ORDERABLES F inal Result Performing Organization Address [facility] de Phone Number [facility] [place] [employer] [address] * (ABNORMAL) aPTT (02/19/2025 1:07 PM CDT) aPTT 21(L) 28 - 38 sec Comment: Interpretive Data Heparin therapeutic range: 66.0 - 100.0 seconds. Range based on correlation with therapeutic heparin activity range of 0.3 - 0.7 Units/mL. Current interpretive data was last revised on 2023. Blood 02/19/2025 1:07 PM CDT 02/19/2025 1:17 PM CDT Steven Babcock Jr., MD LAB BLOOD ORDERABLES F inal Result Performing Organization Address [facility] [place] [address] * Protime-INR (02/19/2025 1:07 PM CDT) PT 11.3 9.7 - 13.0 sec INR 1.05 0.90 - 1.20 [facility] Comment: Interpretive data Oral anticoagulant therapeutic ranges: Venous thromboembolism prophylaxis or treatment: 2.0-3.0 CARDIOLOGY Standard range: 2.0-3.0 High-intensity range: 2.5-3.5 Refer to indication-specific guidelines for appropriate target ranges for prosthetic heart valve replacement. Current interpretive data was last revised on 2019. Blood 02/19/2025 1:07 PM CDT 02/19/2025 1:17 PM CDT Steven Babcock Jr., MD LAB BLOOD ORDERABLES F inal Result [facility] [place] [address] * CT Head WO Contrast (02/19/2025 11:47 AM CDT) Anatomical Region Laterality Modality Head and Neck N/A Computed Tomogra phy 02/19/2025 12:0 0 PM CDT Impressions 02/19/2025 12:00 PM CDT 1. Right cerebral convexity subdural hematoma, unchanged in size configuration, but increased in density. This finding is suggestive of mild interval hemorrhage. 2. Right to left midline shift measuring 1.0 cm, unchanged. Electronically signed by: Fracisco Sears M.D. Narrative 02/19/2025 12:00 PM CDT EXAMINATION: CT head without contrast HISTORY: Patient is a 69-year-old female who fell. TECHNIQUE: CT of the head was performed with images acquired from skull base to vertex without intravenous contrast. COMPARISON: CT of the head performed on 02/14/2025. FINDINGS: A right cerebral convexity subdural hematoma is again identified. While this subdural hematoma is unchanged in size and configuration, the density of this subdural hematoma has increased. This may suggest interval hemorrhage. The maximal thickness of this subdural hematoma is 1.0 cm. The volume of pneumocephalus has improved. A cody hole is visible within the anterior aspect of the right parietal lobe. Mass effect upon the adjacent right frontal lobe persists. Right to left midline shift measuring 0.3 cm is unchanged. Mild mass effect upon the right lateral ventricle is seen. A chronic lacunar infarct is present within the right lentiform nucleus. Atherosclerotic calcifications are present within the cavernous portions of both internal carotid arteries and also the V4 segments of both vertebral arteries. The youngblood-white matter differentiation is normal. The visualized portions of the orbits are normal. Small volume of fluid is present within the mastoid air cells on the right. Mild mucosal thickening is seen within the right maxillary sinus. Aerated mucus is seen within the right sphenoid sinus. No fractures are identified. Procedure Note Fracisco Sears MD - 02/19/2025 EXAMINATION: CT head without contrast HISTORY: Patient is a 69-year-old female who fell. TECHNIQUE: CT of the head was performed with images acquired from skull base to vertex without intravenous contrast. COMPARISON: CT of the head performed on 02/14/2025. FINDINGS: A right cerebral convexity subdural hematoma is again identified. While this subdural hematoma is unchanged in size and configuration, the density of this subdural hematoma has increased. This may suggest interval hemorrhage. The maximal thickness of this subdural hematoma is 1.0 cm. The volume of pneumocephalus has improved. A cody hole is visible within the anterior aspect of the right parietal lobe. Mass effect upon the adjacent right frontal lobe persists. Right to left midline shift measuring 0.3 cm is unchanged. Mild mass effect upon the right lateral ventricle is seen. A chronic lacunar infarct is present within the right lentiform nucleus. Atherosclerotic calcifications are present within the cavernous portions of both internal carotid arteries and also the V4 segments of both vertebral arteries. The youngblood-white matter differentiation is normal. The visualized portions of the orbits are normal. Small volume of fluid is present within the mastoid air cells on the right. Mild mucosal thickening is seen within the right maxillary sinus. Aerated mucus is seen within the right sphenoid sinus. No fractures are identified. IMPRESSION: 1. Right cerebral convexity subdural hematoma, unchanged in size configuration, but increased in density. This finding is suggestive of mild interval hemorrhage. 2. Right to left midline shift measuring 1.0 cm, unchanged. Electronically signed by: Fracisco Sears M.D. Steven Babcock Jr., MD [facility] CT PROCEDURES Aracelis l Result * Troponin I high-sensitivity series (baseline, 2hr, 4hr, 6hr) (02/19/2025 11:34 AM CDT) Trop I hs <4 <=17 ng/L Comment: Interpretive Data For further hscTnI resources including the diagnostic algorithm and an aid in interpretation, copy and paste this link: https://bjhlab.testcatalog.org/show/[email or web address] Current Interpretive Data last revised 2020. Blood 02/19/2025 11:3 4 AM CDT 02/19/2025 11:40 AM CDT us Steven Babcock Jr., MD LAB BLOOD ORDERABLES F inal Result Performing Organization Address [facility]/ZIP Co de Phone Number DARINEL [facility] [place] [address] * (ABNORMAL) eGFR (02/19/2025 11:34 AM CDT) eGFR 41(L) >=60 mL/min/1. 73 m2 Comment: Interpretive Data Reference Interval Normal >/= 90 mL/min/1.73m2 Mildly decreased* 60 - 89 mL/min/1.73m2 Mildly to moderately decreased 45 - 59 mL/min/1.73m2 Moderately to severely decreased 30 - 44 mL/min/1.73m2 Severely decreased 15 - 29 mL/min/1.73m2 Kidney Failure < 15 mL/min/1.73m2 *Relative to young adult level Estimated glomerular filtration rate is determined by the 2020 CKD-EPI equation recommended by the National Kidney [employer] (A Unifying Approach to GFR Estimation: Recommendations of the NKF-ASK Task Force on Reassessing the Inclusion of Race in Diagnosing Kidney Disease, JASN 2020). The CKD-EPI equation should not be used for patients with unstable renal function and has not been validated in children and those over 70. Current interpretive data was last reviewed 2021. Blood 02/19/2025 11:3 4 AM CDT 02/19/2025 11:40 AM CDT us Ryan Zamora MD LAB BLOOD ORDERABLES Final Result Performing Organization Address [facility]/ZIP Co de Phone Number [facility] [place] [address] * (ABNORMAL) Differential, auto (02/19/2025 11:34 AM CDT) Neutrophil abs 5.31 1.50 - 6.50 K/cumm Imm gran abs 0.02 0.00 - 0.10 K/cumm [facility] Lymphocyte abs 3.37(H) 0.80 - 3.30 K/cumm [facility] Monocyte abs 0.54 0.20 - 0.80 K/cumm [facility] Eosinophil abs 1.06(H) 0.00 - 0.50 K/cumm [facility] Basophil abs 0.08 0.00 - 0.10 K/cumm [facility] Neutrophil pct 51.1 % [facility] Comment: Interpretive Data Percent cell count reference ranges are not reported, since discordance with absolute values may lead to misinterpretation of CBC data. Current Interpretive Data was last revised on 2018. Imm gran pct 0.2 % [facility] Comment: Interpretive Data Percent cell count reference ranges are not reported, since discordance with absolute values may lead to misinterpretation of CBC data. Current Interpretive Data was last revised on 2018. Lymphocyte pct 32.5 % [facility] Comment: Interpretive Data Percent cell count reference ranges are not reported, since discordance with absolute values may lead to misinterpretation of CBC data. Current Interpretive Data was last revised on 2018. Monocyte pct 5.2 % [facility] Comment: Interpretive Data Percent cell count reference ranges are not reported, since discordance with absolute values may lead to misinterpretation of CBC data. Current Interpretive Data was last revised on 2018. Eosinophil pct 10.2 % [facility] Comment: Interpretive Data Percent cell count reference ranges are not reported, since discordance with absolute values may lead to misinterpretation of CBC data. Current Interpretive Data was last revised on 2018. Basophil pct 0.8 % [facility] Comment: Interpretive Data Percent cell count reference ranges are not reported, since discordance with absolute values may lead to misinterpretation of CBC data. Current Interpretive Data was last revised on 2018. Blood 02/19/2025 11:3 4 AM CDT 02/19/2025 11:40 AM CDT us Ryan Zamora MD LAB BLOOD ORDERABLES Final Result [facility] [place] [address] * (ABNORMAL) CBC with auto differential (02/19/2025 11:34 AM CDT) [facility] WBC 10.38(H) 3.80 - 9.90 K/cumm Hgb 11.2(L) 11.9 - 15.5 g/dL [facility] Hct 34.4(L) 35.6 - 45.5 % [facility] Plt 234 150 - 400 K/cumm [facility] MPV 9.8 9.1 - 12.3 fL [facility] RBC 4.11 3.90 - 5.20 M/cumm [facility] MCV 83.7 81.3 - 96.4 fL [facility] MCH 27.3 27.1 - 33.3 pg [facility] MCHC 32.6 32.3 - 35.7 g/dL [facility] RDW CV 13.7 11.1 - 14.9 % [facility] RDW SD 42.1 35.7 - 48.1 fL [facility] NRBC abs 0.00 0.00 - 0.01 K/cumm [facility] Blood 02/19/2025 11:3 4 AM CDT 02/19/2025 11:40 AM CDT us Trae Mtz MD LAB BLOOD ORDERABLES Aracelis l Result [facility] [place] [address] * (ABNORMAL) Comprehensive metabolic panel (02/19/2025 11:34 AM CDT) [facility] Sodium 140 135 - 145 mmol/L Potassium, pl 4.7 3.3 - 4.9 mmol/L [facility] Chloride 105 97 - 110 mmol/L [facility] CO2 24 22 - 32 mmol/L [facility] Anion gap 11 2 - 15 mmol/L [facility] BUN 32(H) 6 - 25 mg/dL [facility] Creatinine 1.39(H) 0.60 - 1.10 mg/dL [facility] Glucose 166 70 - 199 mg/dL [facility] Comment: Interpretive Data Fasting glucose >/= 126 mg/dl is diagnostic for diabetes. Fasting is defined as no caloric intake for at least 8 hours. Fasting glucose between 100 mg/dl to 125 mg/dl is diagnostic of prediabetes. In a patient with classic symptoms of hyperglycemia or hyperglycemic crisis, a random glucose >/= 200 mg/dl is diagnostic for diabetes. In the absence of unequivocal hyperglycemia, results should be confirmed by repeat testing. The classification and Diagnosis of Diabetes Diabetes Care 2021; 46: S19-S40. Current interpretive data was last revised 2022. Calcium 10.1 8.5 - 10.3 mg/dL [facility] Bilirubin, total 0.3 0.1 - 1.2 mg/dL [facility] Protein, pl 7.3 6.5 - 8.5 g/dL [facility] Albumin 4.0 3.5 - 5.0 g/dL [facility] Alk phos 158(H) 40 - 130 Units/L [facility] ALT 31 7 - 45 Units/L [facility] AST 19 10 - 45 Units/L [facility] Blood 02/19/2025 11:3 4 AM CDT 02/19/2025 11:40 AM CDT us Trae Mtz MD LAB BLOOD ORDERABLES Aracelis l Result [facility] [place] [address] * POCT glucose (02/19/2025 11:12 AM CDT) [facility] Glucose, POC 176 70 - 199 mg/dL Blood 02/19/2025 11:1 2 AM CDT 02/19/2025 11:12 AM CDT us Trae Mtz MD LAB POCT ORDERABLES - DEV ICE Final Result Performing Organization Address [facility]/ZIP Co de Phone Number [facility] [place] [address] * POCT glucose (02/19/2025 10:29 AM CDT) Glucose, POC 184 70 - 199 mg/dL Blood 02/19/2025 10:2 9 AM CDT 02/19/2025 10:29 AM CDT us Notinfile Unknown LAB POCT ORDERABLES - DEVICE F inal Result Performing Organization Address [facility] Co de Phone Number [facility] [place] [address] * (ABNORMAL) POCT glucose (02/19/2025 10:04 AM CDT) Glucose, POC 205(H) 70 - 199 mg/dL Blood 02/19/2025 10:0 4 AM CDT 02/19/2025 10:04 AM CDT us Mable Campos MD LAB POCT ORDERABLES - JAGJIT CE Final Result Performing Organization Address [facility] Co de Phone Number [facility] [place] [employer] [place] [address] * CT Head WO Contrast (02/14/2025 9:07 AM CDT) Anatomical Region Laterality Modality Head and Neck N/A Computed Tomogra phy 02/14/2025 4:45 PM CDT Impressions 02/14/2025 4:45 PM CDT Interval decrease in size of right cerebral convexity subdural hematoma with corresponding decrease in leftward midline shift. Electronically signed by: Adam Camargo MD Narrative 02/14/2025 4:45 PM CDT EXAMINATION: CT head without contrast HISTORY: SDH TECHNIQUE: Noncontrast CT of the brain was performed with images acquired from skull base to vertex according to a general CT head protocol. COMPARISON: 01/22/2025 FINDINGS: Redemonstrated postoperative findings from right parietal evacuation of right cerebral convexity subdural hematoma. Interval removal of subdural drain. The right cerebral convexity mixed density subdural hematoma is markedly decreased in size with resolution of extra-axial pneumocephalus, now measuring approximately 1.4 cm in maximal thickness, previously measuring up to 1.7 cm in maximal thickness. Marked interval decrease in leftward midline shift now measuring approximately 0.4 cm, previously 0.7 cm. There is no new acute intracranial hemorrhage. The ventricles are of normal size and morphology. The youngblood-white matter differentiation is normal. Periventricular white matter hypoattenuation may reflect underlying chronic small vessel ischemic changes. Carotid siphon and bilateral V4 segment atherosclerotic calcifications are noted. No acute calvarial fracture seen. Partially empty sella. The visualized portions of the orbits are normal. The visualized portions of the mastoids are normal. Mild paranasal sinus mucosal thickening. Procedure Note Adam Camargo MD - 02/14/2025 EXAMINATION: CT head without contrast HISTORY: SDH TECHNIQUE: Noncontrast CT of the brain was performed with images acquired from skull base to vertex according to a general CT head protocol. COMPARISON: 01/22/2025 FINDINGS: Redemonstrated postoperative findings from right parietal evacuation of right cerebral convexity subdural hematoma. Interval removal of subdural drain. The right cerebral convexity mixed density subdural hematoma is markedly decreased in size with resolution of extra-axial pneumocephalus, now measuring approximately 1.4 cm in maximal thickness, previously measuring up to 1.7 cm in maximal thickness. Marked interval decrease in leftward midline shift now measuring approximately 0.4 cm, previously 0.7 cm. There is no new acute intracranial hemorrhage. The ventricles are of normal size and morphology. The youngblood-white matter differentiation is normal. Periventricular white matter hypoattenuation may reflect underlying chronic small vessel ischemic changes. Carotid siphon and bilateral V4 segment atherosclerotic calcifications are noted. No acute calvarial fracture seen. Partially empty sella. The visualized portions of the orbits are normal. The visualized portions of the mastoids are normal. Mild paranasal sinus mucosal thickening. IMPRESSION: Interval decrease in size of right cerebral convexity subdural hematoma with corresponding decrease in leftward midline shift. Electronically signed by: Adam Camargo MD Avril Fontenot TELE[employer]ATION INSTALLER IMG CT PROCEDURES Final Re sult * POCT glucose (01/25/2025 8:45 PM CDT) Glucose, POC 161 70 - 199 mg/dL Blood 01/25/2025 8:45 PM CDT 01/25/2025 8:45 PM CDT Bernardo Lorenz MD LAB POCT ORDERABLES - DEVICE Fin al Result Performing Organization Address [facility] Co de Phone Number [facility] [place] [employer] [place] [address] * POCT glucose (01/25/2025 12:01 PM CDT) [facility] Signature Glucose, POC 189 70 - 199 mg/dL Blood 01/25/2025 12:0 1 PM CDT 01/25/2025 12:01 PM CDT Bernardo Lorenz MD LAB POCT ORDERABLES - DEVICE Fin al Result Performing Organization Address [facility] de Phone Number [facility] [place] [employer] [place] [address] * POCT glucose (01/25/2025 7:57 AM CDT) [facility] Signature Glucose, POC 121 70 - 199 mg/dL Blood 01/25/2025 7:57 AM CDT 01/25/2025 7:57 AM CDT Bernardo Lorenz MD LAB POCT ORDERABLES - DEVICE Fin al Result Performing Organization Address [facility] de Phone Number [facility] [place] [address] * (ABNORMAL) eGFR (01/24/2025 9:18 PM CDT) [facility] eGFR 41(L) >=60 mL/min/1. 73 m2 Comment: Interpretive Data Reference Interval Normal >/= 90 mL/min/1.73m2 Mildly decreased* 60 - 89 mL/min/1.73m2 Mildly to moderately decreased 45 - 59 mL/min/1.73m2 Moderately to severely decreased 30 - 44 mL/min/1.73m2 Severely decreased 15 - 29 mL/min/1.73m2 Kidney Failure < 15 mL/min/1.73m2 *Relative to young adult level Estimated glomerular filtration rate is determined by the 2020 CKD-EPI equation recommended by the National Kidney Foundation (A Unifying Approach to GFR Estimation: Recommendations of the NKF-ASK Task Force on Reassessing the Inclusion of Race in Diagnosing Kidney Disease, JASN 2020). The CKD-EPI equation should not be used for patients with unstable renal function and has not been validated in children and those over 70. Current interpretive data was last reviewed 2021. Blood 01/24/2025 9:18 PM CDT 01/24/2025 9:32 PM CDT us Wendy Menjivar NP LAB BLOOD ORDERABLES F inal Result [facility] [place] [address] * (ABNORMAL) CBC without differential (01/24/2025 9:18 PM CDT) [facility] WBC 11.5(H) 3.8 - 9.9 K/cumm Hgb 9.2(L) 11.9 - 15.5 g/dL [facility] Hct 28.2(L) 35.6 - 45.5 % [facility] Plt 369 150 - 400 K/cumm [facility] MPV 9.3 9.1 - 12.3 fL [facility] RBC 3.38(L) 3.90 - 5.20 M/cumm [facility] MCV 83.4 81.3 - 96.4 fL [facility] MCH 27.2 27.1 - 33.3 pg [facility] MCHC 32.6 32.3 - 35.7 g/dL [facility] RDW CV 13.7 11.1 - 14.9 % [facility] RDW SD 41.4 35.7 - 48.1 fL [facility] NRBC abs 0.00 0.00 - 0.01 K/cumm [facility] Blood 01/24/2025 9:18 PM CDT 01/24/2025 9:33 PM CDT Wendy Menjivar NP LAB BLOOD ORDERABLES F inal Result [facility] [place] [address] * (ABNORMAL) Basic metabolic panel (01/24/2025 9:18 PM CDT) Sodium 134(L) 135 - 145 mmol/L Potassium, pl 4.8 3.3 - 4.9 mmol/L [facility] Chloride 100 97 - 110 mmol/L [facility] CO2 23 22 - 32 mmol/L [facility] Anion gap 11 2 - 15 mmol/L [facility] BUN 38(H) 6 - 25 mg/dL [facility] Creatinine 1.39(H) 0.60 - 1.10 mg/dL [facility] Glucose 185 70 - 199 mg/dL [facility] Comment: Interpretive Data Fasting glucose >/= 126 mg/dl is diagnostic for diabetes. Fasting is defined as no caloric intake for at least 8 hours. Fasting glucose between 100 mg/dl to 125 mg/dl is diagnostic of prediabetes. In a patient with classic symptoms of hyperglycemia or hyperglycemic crisis, a random glucose >/= 200 mg/dl is diagnostic for diabetes. In the absence of unequivocal hyperglycemia, results should be confirmed by repeat testing. The classification and Diagnosis of Diabetes Diabetes Care 2021; 46: S19-S40. Current interpretive data was last revised 2022. Calcium 9.2 8.5 - 10.3 mg/dL [facility] Blood 01/24/2025 9:18 PM CDT 01/24/2025 9:32 PM CDT Wendy Menjivar NP LAB BLOOD ORDERABLES F inal Result Performing Organization Address [facility] de Phone Number [facility] [place] [address] * (ABNORMAL) POCT glucose (01/24/2025 9:06 PM CDT) Glucose, POC 206(H) 70 - 199 mg/dL Blood 01/24/2025 9:06 PM CDT 01/24/2025 9:06 PM CDT Bernardo Lorenz MD LAB POCT ORDERABLES - DEVICE Fin al Result Performing Organization Address [facility] Phone Number [facility] [place] [address] * POCT glucose (01/24/2025 6:55 PM CDT) Glucose, POC 132 70 - 199 mg/dL Blood 01/24/2025 6:55 PM CDT 01/24/2025 6:55 PM CDT Result [facility] Bernardo Lorenz MD LAB POCT ORDERABLES - DEVICE Fin al Result Performing Organization Address [facility] de Phone Number [facility] [place] [address] * POCT glucose (01/24/2025 5:45 PM CDT) Glucose, POC 178 70 - 199 mg/dL Blood 01/24/2025 5:45 PM CDT 01/24/2025 5:45 PM CDT Bernardo Lorenz MD LAB POCT ORDERABLES - DEVICE Fin al Result [facility] [place] [address] * (ABNORMAL) POCT glucose (01/24/2025 12:31 PM CDT) Glucose, POC 228(H) 70 - 199 mg/dL Blood 01/24/2025 12:3 1 PM CDT 01/24/2025 12:31 PM CDT Bernardo Lorenz MD LAB POCT ORDERABLES - DEVICE Fin al Result Performing Organization Address [facility] Co de Phone Number [facility] [place] [address] * (ABNORMAL) POCT glucose (01/24/2025 8:07 AM CDT) Glucose, POC 210(H) 70 - 199 mg/dL Blood 01/24/2025 8:07 AM CDT 01/24/2025 8:07 AM CDT Bernardo Lorenz MD LAB POCT ORDERABLES - DEVICE Fin al Result Performing Organization Address [facility] Co de Phone Number [facility] Department [place] [address] * (ABNORMAL) eGFR (01/23/2025 9:27 PM CDT) eGFR 47(L) >=60 mL/min/1. 73 m2 Comment: Interpretive Data Reference Interval Normal >/= 90 mL/min/1.73m2 Mildly decreased* 60 - 89 mL/min/1.73m2 Mildly to moderately decreased 45 - 59 mL/min/1.73m2 Moderately to severely decreased 30 - 44 mL/min/1.73m2 Severely decreased 15 - 29 mL/min/1.73m2 Kidney Failure < 15 mL/min/1.73m2 *Relative to young adult level Estimated glomerular filtration rate is determined by the 2020 CKD-EPI equation recommended by the National Kidney Foundation (A Unifying Approach to GFR Estimation: Recommendations of the NKF-ASK Task Force on Reassessing the Inclusion of Race in Diagnosing Kidney Disease, JASN 2020). The CKD-EPI equation should not be used for patients with unstable renal function and has not been validated in children and those over 70. Current interpretive data was last reviewed 2021. Blood 01/23/2025 9:27 PM CDT 01/23/2025 9:48 PM CDT us Wendy Menjivar [employer] LAB BLOOD ORDERABLES F inal Result [facility] [place] [address] * (ABNORMAL) CBC without differential (01/23/2025 9:27 PM CDT) WBC 11.0(H) 3.8 - 9.9 K/cumm Hgb 10.5(L) 11.9 - 15.5 g/dL [facility] Hct 32.7(L) 35.6 - 45.5 % [facility] Plt 427(H) 150 - 400 K/cumm [facility] MPV 9.3 9.1 - 12.3 fL [facility] RBC 3.90 3.90 - 5.20 M/cumm [facility] MCV 83.8 81.3 - 96.4 fL [facility] MCH 26.9(L) 27.1 - 33.3 pg [facility] MCHC 32.1(L) 32.3 - 35.7 g/dL [facility] RDW CV 13.8 11.1 - 14.9 % [facility] RDW SD 42.3 35.7 - 48.1 fL [facility] NRBC abs 0.00 0.00 - 0.01 K/cumm [facility] Blood 01/23/2025 9:27 PM CDT 01/23/2025 9:48 PM CDT us Wendy Menjivar NP LAB BLOOD ORDERABLES F inal Result [facility] Department [place] [address] * (ABNORMAL) Basic metabolic panel (01/23/2025 9:27 PM CDT) Pathologist [facility] Sodium 138 135 - 145 mmol/L Potassium, pl 4.4 3.3 - 4.9 mmol/L [facility] Chloride 101 97 - 110 mmol/L [facility] CO2 24 22 - 32 mmol/L [facility] Anion gap 13 2 - 15 mmol/L [facility] BUN 30(H) 6 - 25 mg/dL [facility] Creatinine 1.25(H) 0.60 - 1.10 mg/dL [facility] Glucose 193 70 - 199 mg/dL [facility] Comment: Interpretive Data Fasting glucose >/= 126 mg/dl is diagnostic for diabetes. Fasting is defined as no caloric intake for at least 8 hours. Fasting glucose between 100 mg/dl to 125 mg/dl is diagnostic of prediabetes. In a patient with classic symptoms of hyperglycemia or hyperglycemic crisis, a random glucose >/= 200 mg/dl is diagnostic for diabetes. In the absence of unequivocal hyperglycemia, results should be confirmed by repeat testing. The classification and Diagnosis of Diabetes Diabetes Care 202; 46: S19-S40. Current interpretive data was last revised 2022. Calcium 9.6 8.5 - 10.3 mg/dL [facility] Blood 01/23/2025 9:27 PM CDT 01/23/2025 9:48 PM CDT Wendy Menjivar NP LAB BLOOD ORDERABLES F inal Result Performing Organization Address [facility]/ZIP Co de Phone Number [facility] [place] [address] * (ABNORMAL) POCT glucose (01/23/2025 9:18 PM CDT) Glucose, POC 224(H) 70 - 199 mg/dL Blood 01/23/2025 9:18 PM CDT 01/23/2025 9:18 PM CDT Bernardo Lorenz MD LAB POCT ORDERABLES - DEVICE Fin al Result Performing Organization Address [facility] Phone Number [facility] [place] [employer] [place] [address] * POCT glucose (01/23/2025 5:11 PM CDT) Glucose, POC 164 70 - 199 mg/dL Blood 01/23/2025 5:11 PM CDT 01/23/2025 5:11 PM CDT Result [facility] Bernardo Lorenz MD LAB POCT ORDERABLES - DEVICE Fin al Result Performing Organization Address [facility] Phone Number [facility] [place] [place] [address] * POCT glucose (01/23/2025 12:38 PM CDT) Glucose, POC 162 70 - 199 mg/dL Blood 01/23/2025 12:3 8 PM CDT 01/23/2025 12:38 PM CDT Result [facility] Bernardo Lorenz MD LAB POCT ORDERABLES - DEVICE Fin al Result Performing Organization Address [facility] de Phone Number [facility] [place] [place] [address] * POCT glucose (01/23/2025 7:35 AM CDT) Glucose, POC 160 70 - 199 mg/dL Blood 01/23/2025 7:35 AM CDT 01/23/2025 7:35 AM CDT Bernardo Lorenz MD LAB POCT ORDERABLES - DEVICE Fin al Result [facility] [place] [address] * Potassium, whole blood (01/23/2025 12:25 AM CDT) Potassium, bld 3.9 3.3 - 4.9 mmol/L Blood 01/23/2025 12:2 5 AM CDT 01/23/2025 12:36 AM CDT Paul Terrazas NP LAB BLOOD ORDERABLES Final Re sult Performing Organization Address [facility] Co de Phone Number [facility] [place] [address] * (ABNORMAL) eGFR (01/22/2025 9:13 PM CDT) eGFR 49(L) >=60 mL/min/1. 73 m2 Comment: Interpretive Data Reference Interval Normal >/= 90 mL/min/1.73m2 Mildly decreased* 60 - 89 mL/min/1.73m2 Mildly to moderately decreased 45 - 59 mL/min/1.73m2 Moderately to severely decreased 30 - 44 mL/min/1.73m2 Severely decreased 15 - 29 mL/min/1.73m2 Kidney Failure < 15 mL/min/1.73m2 *Relative to young adult level Estimated glomerular filtration rate is determined by the 2020 CKD-EPI equation recommended by the National Kidney Foundation (A Unifying Approach to GFR Estimation: Recommendations of the NKF-ASK Task Force on Reassessing the Inclusion of Race in Diagnosing Kidney Disease, JASN 202). The CKD-EPI equation should not be used for patients with unstable renal function and has not been validated in children and those over 70. Current interpretive data was last reviewed 2021. Blood 01/22/2025 9:13 PM CDT 01/22/2025 9:36 PM CDT us Wendy Menjivar NP LAB BLOOD ORDERABLES F inal Result Performing Organization Address [facility] Co de Phone Number [facility] [place] [place] [address] * (ABNORMAL) CBC without differential (01/22/2025 9:13 PM CDT) [facility] WBC 11.0(H) 3.8 - 9.9 K/cumm Hgb 10.0(L) 11.9 - 15.5 g/dL [facility] Hct 30.5(L) 35.6 - 45.5 % [facility] Plt 423(H) 150 - 400 K/cumm [facility] MPV 9.6 9.1 - 12.3 fL [facility] RBC 3.64(L) 3.90 - 5.20 M/cumm [facility] MCV 83.8 81.3 - 96.4 fL [facility] MCH 27.5 27.1 - 33.3 pg [facility] MCHC 32.8 32.3 - 35.7 g/dL [facility] RDW CV 13.5 11.1 - 14.9 % [facility] RDW SD 41.2 35.7 - 48.1 fL [facility] NRBC abs 0.00 0.00 - 0.01 K/cumm [facility] Blood 01/22/2025 9:13 PM CDT 01/22/2025 9:40 PM CDT Wendy Menjivar NP LAB BLOOD ORDERABLES F inal Result Performing Organization Address [facility]/ZIP Co de Phone Number [facility] Department [place] [address] * (ABNORMAL) Basic metabolic panel (01/22/2025 9:13 PM CDT) Pathologist [facility] Sodium 141 135 - 145 mmol/L Potassium, pl 4.6 3.3 - 4.9 mmol/L [facility] Comment:Hemolyzed; Potassium value may be falsely elevated by as much as 0.6-1.0 mmol/L. Suggest redraw and reanalysis. Chloride 99 97 - 110 mmol/L [facility] CO2 23 22 - 32 mmol/L [facility] Anion gap 19(H) 2 - 15 mmol/L [facility] BUN 25 6 - 25 mg/dL [facility] Creatinine 1.20(H) 0.60 - 1.10 mg/dL [facility] Glucose 172 70 - 199 mg/dL [facility] Comment: Interpretive Data Fasting glucose >/= 126 mg/dl is diagnostic for diabetes. Fasting is defined as no caloric intake for at least 8 hours. Fasting glucose between 100 mg/dl to 125 mg/dl is diagnostic of prediabetes. In a patient with classic symptoms of hyperglycemia or hyperglycemic crisis, a random glucose >/= 200 mg/dl is diagnostic for diabetes. In the absence of unequivocal hyperglycemia, results should be confirmed by repeat testing. The classification and Diagnosis of Diabetes Diabetes Care 2021; 46: S19-S40. Current interpretive data was last revised 2022. Calcium 9.2 8.5 - 10.3 mg/dL [facility] Blood 01/22/2025 9:13 PM CDT 01/22/2025 9:36 PM CDT us Wendy Menjivar NP LAB BLOOD ORDERABLES F inal Result Performing Organization Address [facility]/ZIP Co de Phone Number [facility] [place] [place] [address] * POCT glucose (01/22/2025 9:12 PM CDT) Glucose, POC 189 70 - 199 mg/dL Blood 01/22/2025 9:12 PM CDT 01/22/2025 9:12 PM CDT Bernardo Lorenz MD LAB POCT ORDERABLES - DEVICE Fin al Result Performing Organization Address [facility]/ZIP Co de Phone Number [facility] [place] [address] * POCT glucose (01/22/2025 5:08 PM CDT) Glucose, POC 164 70 - 199 mg/dL Blood 01/22/2025 5:08 PM CDT 01/22/2025 5:08 PM CDT Bernardo Lorenz MD LAB POCT ORDERABLES - DEVICE Fin al Result Performing Organization Address [facility] [place] [address] * POCT glucose (01/22/2025 11:26 AM CDT) Glucose, POC 174 70 - 199 mg/dL Blood 01/22/2025 11:2 6 AM CDT 01/22/2025 11:26 AM CDT Bernardo Lorenz MD LAB POCT ORDERABLES - DEVICE Fin al Result Performing Organization Address [facility] [place] [address] * Continuous Video EEG (01/22/2025 10:52 AM CDT) Anatomical Region Laterality Modality EEG Narrative 01/22/2025 4:39 PM CDT Video-EEG Report Patient Name: Nupur Ramirez [facility] Medical Record Number (MRN): [id number] [facility] Record: [id number] Date of (): 1955 EEG Date: 01/20/2025 Ordering Provider: Shanell Crawford MD CC: Tatum Rice Start Time: 01/20/2025 5:03:37 PM End Time: 01/22/2025 9:45:09 AM Introduction: Ms. Ramirez is a 69 y.o. female with a history of DM2, CKD, hypertension, HLD, chronic myeloid leukemia, PVD s/p LLE angioplasty 01/07, and seizures, presenting with altered mental status with seizure-like activity in the setting of right side SDH after a ground level fall. The EEG was performed to evaluate for seizures. This is a report of continuous video-EEG monitoring. High definition digital video and digital EEG were recorded continuously with a [email or web address] EEG acquisition system. This was a 32 channel EEG with additional anterior temporal electrodes. Electrodes were placed with collodion following the 10/20 International System. The patient was monitored and observed continuously by technical personnel. Digital seizure and spike detection were utilized during the recording. EEG description: Epoch 1 : 01/20/2025 5:03:37 PM to 01/21/2025 8:00:00 AM BACKGROUND: The background was continuous, disorganized and there was no well formed PDR. The background also included diffuse irregular theta and polymorphic delta activity Sleep structures were not seen. The record showed variability. Hyperventilation and photic strobe stimulation were not performed. There was occasional-frequent focal irregular delta>theta slowing and loss of superimposed faster frequencies in the right hemisphere, more prominent over the right temporal region. SPORADIC DISCHARGES: None. PERIODIC OR RHYTHMIC PATTERNS: None. SEIZURES: None. EVENTS: None reported. EKG: No significant dysrhythmia. There were no seizures The EEG was off from 6:20 PM to the end of this epoch (8:00 AM) for HCT Epoch 2 : 01/21/2025 8:00:00 AM to 01/22/2025 8:00:00 AM BACKGROUND: The background was continuous, disorganized and there was no well formed PDR. The background also included diffuse irregular theta and polymorphic delta activity Sleep structures were not seen. The record showed variability. Hyperventilation and photic strobe stimulation were not performed. There was occasional-frequent focal irregular delta>theta slowing and loss of superimposed faster frequencies in the right hemisphere, more prominent over the right temporal region. SPORADIC DISCHARGES: None. PERIODIC OR RHYTHMIC PATTERNS: Occasional around 1Hz SI-GPDs with a triphasic morphology SEIZURES: None. EVENTS: None reported. EKG: No significant dysrhythmia. Epoch 3 : 01/22/2025 8:00:00 AM to 01/22/2025 9:45:09 AM BACKGROUND: The background was continuous, disorganized and there was no well formed PDR. The background also included diffuse irregular theta and polymorphic delta activity Sleep structures were not seen. The record showed variability. Hyperventilation and photic strobe stimulation were not performed. There was occasional-frequent focal irregular delta>theta slowing and loss of superimposed faster frequencies in the right hemisphere, more prominent over the right temporal region. SPORADIC DISCHARGES: None. PERIODIC OR RHYTHMIC PATTERNS: Occasional around 1Hz SI-GPDs with a triphasic morphology SEIZURES: None. EVENTS: None reported. EKG: No significant dysrhythmia. Interpretation: Abnormal LTM due to: Occasional around 1Hz SI-GPDs with a triphasic morphology Occasional-frequent right hemispheric delta>theta slowing, maximal in the right temporal region Diffuse irregular delta-theta slowing of the background There were no seizures. There were no events. These findings were discussed with the treating physicians on an at least twice daily basis. By signing this report, the attending Electroencephalographer certifies that he/she personally reviewed the electrodiagnostics study and has edited this report to fully conform with his/her intent. Signing Attending: Ham Almean MD Bernardo Lorenz MD NEUROLOGY ORDERABLES Final Resul t * ECG 12 lead (01/22/2025 9:05 AM CDT) Ventricular Rate EKG/Min 74 BPM [facility] Atrial Rate 74 BPM [facility] PA-Interval (MSEC) 144 ms [facility] QRS-Interval (MSEC) 84 ms [facility] QT-Interval (MSEC) 408 ms [facility] QTc 452 ms [facility] P [place] 29 degrees [facility] R [place] 59 degrees [facility] T [place] 60 degrees [facility] Diagnosis Normal sinus rhythm Nonspecific T wave abnormality Abnormal ECG Confirmed by Ame DECKER, [facility] ([id number]) on 01/23/2025 9:03:45 AM [facility] 01/22/2025 9:05 AM CDT 01/23/2025 9:03 AM CDT Bernardo Lorenz MD ECG ORDERABLES Final Result [facility] * POCT glucose (01/22/2025 7:48 AM CDT) Glucose, POC 134 70 - 199 mg/dL Blood 01/22/2025 7:48 AM CDT 01/22/2025 7:48 AM CDT Bernardo Lorenz MD LAB POCT ORDERABLES - DEVICE Fin al Result Performing Organization Address [facility] Co de Phone Number [facility] [place] [employer] [place] [address] * Potassium, whole blood (01/22/2025 6:27 AM CDT) Potassium, bld 4.1 3.3 - 4.9 mmol/L Blood 01/22/2025 6:27 AM CDT 01/22/2025 6:45 AM CDT Bernardo Lorenz MD LAB BLOOD ORDERABLES Final Resul t Performing Organization Address [facility] Co de Phone Number [facility] [place] [address] * POCT glucose (01/22/2025 6:19 AM CDT) Glucose, POC 142 70 - 199 mg/dL Blood 01/22/2025 6:19 AM CDT 01/22/2025 6:19 AM CDT Bernardo Lorenz MD LAB POCT ORDERABLES - DEVICE Fin al Result Performing Organization Address [facility] Co de Phone Number [facility] [place] [address] * CT Head WO Contrast (01/22/2025 4:45 AM CDT) Anatomical Region Laterality Modality Head and Neck N/A Computed Tomogra phy 01/22/2025 9:14 AM CDT Impressions 01/22/2025 9:39 AM CDT Slightly decreased right subdural blood/gas collection and leftward midline shift with drainage catheter in place. Dictated by: Chuck Bravo M.D. The radiology attending physician has personally reviewed this study, and had reviewed and/or edited this written report and agrees with it. Electronically signed by: Werner Zepeda M.D, PHD Narrative 01/22/2025 9:39 AM CDT EXAMINATION: Portable CT head without contrast HISTORY: Intracranial hemorrhage TECHNIQUE: Portable CT of the head was performed with images acquired from skull base to vertex without intravenous contrast. COMPARISON: 01/21/2025 from 01/20/2025 FINDINGS: Changes of right frontal cody hole evacuation of the right subdural hematoma with a drainage catheter in place. The gas and blood collection measures up to 1.7 cm overlying the right frontal convexity previously 2.0 cm. The rightward midline shift measures 7 mm previously 9 mm. The orbits, mastoid air cells, and paranasal sinuses are normal. Procedure Note Werner Zepeda MD PhD - 01/22/2025 EXAMINATION: Portable CT head without contrast HISTORY: Intracranial hemorrhage TECHNIQUE: Portable CT of the head was performed with images acquired from skull base to vertex without intravenous contrast. COMPARISON: 01/21/2025 from 01/20/2025 FINDINGS: Changes of right frontal cody hole evacuation of the right subdural hematoma with a drainage catheter in place. The gas and blood collection measures up to 1.7 cm overlying the right frontal convexity previously 2.0 cm. The rightward midline shift measures 7 mm previously 9 mm. The orbits, mastoid air cells, and paranasal sinuses are normal. IMPRESSION: Slightly decreased right subdural blood/gas collection and leftward midline shift with drainage catheter in place. Dictated by: Chuck Bravo M.D. The radiology attending physician has personally reviewed this study, and had reviewed and/or edited this written report and agrees with it. Electronically signed by: Werner Zepeda M.D, PHD Bernardo Lorenz MD [facility] CT PROCEDURES Final Result * (ABNORMAL) eGFR (01/22/2025 12:30 AM CDT) eGFR 56(L) >=60 mL/min/1. 73 m2 Comment: Interpretive Data Reference Interval Normal >/= 90 mL/min/1.73m2 Mildly decreased* 60 - 89 mL/min/1.73m2 Mildly to moderately decreased 45 - 59 mL/min/1.73m2 Moderately to severely decreased 30 - 44 mL/min/1.73m2 Severely decreased 15 - 29 mL/min/1.73m2 Kidney Failure < 15 mL/min/1.73m2 *Relative to young adult level Estimated glomerular filtration rate is determined by the 2020 CKD-EPI equation recommended by the National Kidney Foundation (A Unifying Approach to GFR Estimation: Recommendations of the NKF-ASK Task Force on Reassessing the Inclusion of Race in Diagnosing Kidney Disease, JASN 2020). The CKD-EPI equation should not be used for patients with unstable renal function and has not been validated in children and those over 70. Current interpretive data was last reviewed 2021. Blood 01/22/2025 12:3 0 AM CDT 01/22/2025 1:12 AM CDT us Wendy Menjivar NP LAB BLOOD ORDERABLES F inal Result Performing Organization Address [facility] Co de Phone Number [facility] [place] [address] * (ABNORMAL) Iron profile w/ IBC (01/22/2025 12:30 AM CDT) Iron 32(L) 35 - 145 mcg/dL TIBC See Comment 250 - 400 mcg/dL [facility] Comment:Unable to calculate Transferrin saturation See Comment 20 - 50 % [facility] Comment:Unable to calculate Blood 01/22/2025 12:3 0 AM CDT 01/22/2025 1:12 AM CDT us Bernardo Lorenz MD LAB BLOOD ORDERABLES Final Resul t [facility] [place] [address] * (ABNORMAL) CBC without differential (01/22/2025 12:30 AM CDT) Pathologist [facility] WBC 10.0(H) 3.8 - 9.9 K/cumm Hgb 10.2(L) 11.9 - 15.5 g/dL [facility] Hct 30.2(L) 35.6 - 45.5 % [facility] Plt 453(H) 150 - 400 K/cumm [facility] MPV 9.7 9.1 - 12.3 fL [facility] RBC 3.72(L) 3.90 - 5.20 M/cumm [facility] MCV 81.2(L) 81.3 - 96.4 fL [facility] MCH 27.4 27.1 - 33.3 pg [facility] MCHC 33.8 32.3 - 35.7 g/dL [facility] RDW CV 13.8 11.1 - 14.9 % [facility] RDW SD 40.3 35.7 - 48.1 fL [facility] NRBC abs 0.00 0.00 - 0.01 K/cumm [facility] Blood 01/22/2025 12:3 0 AM CDT 01/22/2025 1:13 AM CDT Wendy Menjivar NP LAB BLOOD ORDERABLES F inal Result [facility] [place] [address] * Phosphorus (01/22/2025 12:30 AM CDT) Pathologist [facility] Phosphorus, pl 3.7 2.3 - 4.5 mg/dL Blood 01/22/2025 12:3 0 AM CDT 01/22/2025 1:12 AM CDT Wendy Menjivar NP LAB BLOOD ORDERABLES F inal Result Performing Organization Address City/[facility] Co de Phone Number [facility] [place] [employer] [place] [address] * Magnesium (01/22/2025 12:30 AM CDT) [facility] Magnesium 2.0 1.4 - 2.5 mg/dL Blood 01/22/2025 12:3 0 AM CDT 01/22/2025 1:12 AM CDT Bernardo Lorenz MD LAB BLOOD ORDERABLES Final Resul t Performing Organization Address [facility] de Phone Number [facility] [place] [employer] [place] [address] * Folate (01/22/2025 12:30 AM CDT) [facility] Folic acid See Comment >=5.0 ng/mL Comment:Credited; Hemolyzed Specimen Blood 01/22/2025 12:3 0 AM CDT 01/22/2025 1:12 AM CDT Bernardo Lorenz MD LAB BLOOD ORDERABLES Final Resul t Performing Organization Address [facility] Co de Phone Number [facility] [place] [address] * Basic metabolic panel (01/22/2025 12:30 AM CDT) [facility] Sodium 142 135 - 145 mmol/L Potassium, pl 4.1 3.3 - 4.9 mmol/L [facility] Comment:Hemolyzed; Potassium value may be falsely elevated by as much as 0.3-0.5 mmol/L. Suggest redraw and reanalysis. Chloride 107 97 - 110 mmol/L [facility] CO2 23 22 - 32 mmol/L [facility] Anion gap 12 2 - 15 mmol/L [facility] BUN 23 6 - 25 mg/dL [facility] Creatinine 1.08 0.60 - 1.10 mg/dL [facility] Glucose 113 70 - 199 mg/dL [facility] Comment: Interpretive Data Fasting glucose >/= 126 mg/dl is diagnostic for diabetes. Fasting is defined as no caloric intake for at least 8 hours. Fasting glucose between 100 mg/dl to 125 mg/dl is diagnostic of prediabetes. In a patient with classic symptoms of hyperglycemia or hyperglycemic crisis, a random glucose >/= 200 mg/dl is diagnostic for diabetes. In the absence of unequivocal hyperglycemia, results should be confirmed by repeat testing. The classification and Diagnosis of Diabetes Diabetes Care 202; 46: S19-S40. Current interpretive data was last revised 2022. Calcium 9.0 8.5 - 10.3 mg/dL [facility] Blood 01/22/2025 12:3 0 AM CDT 01/22/2025 1:12 AM CDT Wendy Menjivar NP LAB BLOOD ORDERABLES F inal Result [facility] [place] [place] [address] * POCT glucose (01/21/2025 9:07 PM CDT) Glucose, POC 158 70 - 199 mg/dL Blood 01/21/2025 9:07 PM CDT 01/21/2025 9:07 PM CDT Bernardo Lorenz MD LAB POCT ORDERABLES - DEVICE Fin al Result [facility] [place] [place] [address] * POCT glucose (01/21/2025 5:56 PM CDT) Glucose, POC 145 70 - 199 mg/dL Blood 01/21/2025 5:56 PM CDT 01/21/2025 5:56 PM CDT Bernardo Lorenz MD LAB POCT ORDERABLES - DEVICE Fin al Result Performing Organization Address [facility] Co de Phone Number [facility] [place] [address] * POCT glucose (01/21/2025 12:00 PM CDT) Glucose, POC 128 70 - 199 mg/dL Blood 01/21/2025 12:0 0 PM CDT 01/21/2025 12:00 PM CDT Bernardo Lorenz MD LAB POCT ORDERABLES - DEVICE Fin al Result Performing Organization Address [facility] Co de Phone Number [facility] [place] [address] * POCT glucose (01/21/2025 5:29 AM CDT) Glucose, POC 132 70 - 199 mg/dL Blood 01/21/2025 5:29 AM CDT 01/21/2025 5:29 AM CDT Bernardo Lorenz MD LAB POCT ORDERABLES - DEVICE Fin al Result Performing Organization Address [facility] Co de Phone Number [facility] [place] [address] * (ABNORMAL) eGFR (01/21/2025 4:49 AM CDT) eGFR 58(L) >=60 mL/min/1. 73 m2 Comment: Interpretive Data Reference Interval Normal >/= 90 mL/min/1.73m2 Mildly decreased* 60 - 89 mL/min/1.73m2 Mildly to moderately decreased 45 - 59 mL/min/1.73m2 Moderately to severely decreased 30 - 44 mL/min/1.73m2 Severely decreased 15 - 29 mL/min/1.73m2 Kidney Failure < 15 mL/min/1.73m2 *Relative to young adult level Estimated glomerular filtration rate is determined by the 2020 CKD-EPI equation recommended by the National Kidney Foundation (A Unifying Approach to GFR Estimation: Recommendations of the NKF-ASK Task Force on Reassessing the Inclusion of Race in Diagnosing Kidney Disease, JASN 2020). The CKD-EPI equation should not be used for patients with unstable renal function and has not been validated in children and those over 70. Current interpretive data was last reviewed 2021. Blood 01/21/2025 4:49 AM CDT 01/21/2025 5:05 AM CDT Bernardo Lorenz MD LAB BLOOD ORDERABLES Final Resul t [facility] [place] [place] [address] * Magnesium (01/21/2025 4:49 AM CDT) Pathologist [facility] Magnesium 1.6 1.4 - 2.5 mg/dL Blood 01/21/2025 4:49 AM CDT 01/21/2025 5:05 AM CDT Bernardo Lorenz MD LAB BLOOD ORDERABLES Final Resul t [facility] [place] [address] * (ABNORMAL) Basic metabolic panel (01/21/2025 4:49 AM CDT) Sodium 144 135 - 145 mmol/L Potassium, pl 4.6 3.3 - 4.9 mmol/L [facility] Chloride 106 97 - 110 mmol/L [facility] CO2 27 22 - 32 mmol/L [facility] Anion gap 11 2 - 15 mmol/L [facility] BUN 27(H) 6 - 25 mg/dL [facility] Creatinine 1.04 0.60 - 1.10 mg/dL [facility] Glucose 111 70 - 199 mg/dL [facility] Comment: Interpretive Data Fasting glucose >/= 126 mg/dl is diagnostic for diabetes. Fasting is defined as no caloric intake for at least 8 hours. Fasting glucose between 100 mg/dl to 125 mg/dl is diagnostic of prediabetes. In a patient with classic symptoms of hyperglycemia or hyperglycemic crisis, a random glucose >/= 200 mg/dl is diagnostic for diabetes. In the absence of unequivocal hyperglycemia, results should be confirmed by repeat testing. The classification and Diagnosis of Diabetes Diabetes Care 2021; 46: S19-S40. Current interpretive data was last revised 2022. Calcium 9.4 8.5 - 10.3 mg/dL [facility] Blood 01/21/2025 4:49 AM CDT 01/21/2025 5:05 AM CDT us Bernardo Lorenz MD LAB BLOOD ORDERABLES Final Resul t [facility] [place] [address] * CT Head WO Contrast (01/21/2025 3:49 AM CDT) Anatomical Region Laterality Modality Head and Neck N/A Computed Tomogra phy 01/21/2025 4:50 AM CDT Impressions 01/21/2025 5:46 AM CDT Stable postoperative findings with unchanged subdural collection, subdural drain, and midline shift. Dictated by: Sandra Paez MD The radiology attending physician has personally reviewed this study, and had reviewed and/or edited this written report and agrees with it. Electronically signed by: Arun Sanchez M.D. Narrative 01/21/2025 5:46 AM CDT EXAMINATION: CT head without contrast HISTORY: Stroke follow-up. TECHNIQUE: CT of the head was performed with images acquired from skull base to vertex without intravenous contrast. COMPARISON: 01/20/2025 2 CTs FINDINGS: Stable postoperative changes with right cerebral convexity subdural drainage catheter and stable fluid and gas collection with blood product along the right cerebral convexity. Surgical drain unchanged in position. Stable 8 mm leftward mediastinal shift. The youngblood-white matter differentiation is normal. The visualized portions of the orbits are normal. The visualized portions of the mastoids are normal. The visualized portions of the paranasal sinuses are normal. Procedure Note Arun Sanchez MD - 01/21/2025 EXAMINATION: CT head without contrast HISTORY: Stroke follow-up. TECHNIQUE: CT of the head was performed with images acquired from skull base to vertex without intravenous contrast. COMPARISON: 01/20/2025 2 CTs FINDINGS: Stable postoperative changes with right cerebral convexity subdural drainage catheter and stable fluid and gas collection with blood product along the right cerebral convexity. Surgical drain unchanged in position. Stable 8 mm leftward mediastinal shift. The youngblood-white matter differentiation is normal. The visualized portions of the orbits are normal. The visualized portions of the mastoids are normal. The visualized portions of the paranasal sinuses are normal. IMPRESSION: Stable postoperative findings with unchanged subdural collection, subdural drain, and midline shift. Dictated by: Sandra Paez MD The radiology attending physician has personally reviewed this study, and had reviewed and/or edited this written report and agrees with it. Electronically signed by: Arun Sanchez M.D. Bernardo Lorenz MD IMG CT PROCEDURES Final Result * POCT glucose (01/20/2025 11:57 PM CDT) Glucose, POC 123 70 - 199 mg/dL Blood 01/20/2025 11:5 7 PM CDT 01/20/2025 11:57 PM CDT Bernardo Lorenz MD LAB POCT ORDERABLES - DEVICE Fin al Result [facility] [place] [address] * (ABNORMAL) Fentanyl Confirmation, Urine (01/20/2025 8:32 PM CDT) Fentanyl Conf, Ur Does Not Confirm Cutoff 0.3ng/mL Acetylfentanyl Conf, Ur Does Not Confirm Cutoff 1 ng/mL [facility] Acrylfentanyl Conf, Ur Does Not Confirm Cutoff 1 ng/mL [facility] Furanylfentanyl Conf, Ur Does Not Confirm Cutoff 1 ng/mL [facility] Fentanyl Metabolite (Norfentanyl) Conf, Ur Confirmed Positive(A) CutOff 5 ng/mL [facility] Xylazine MS Does Not Confirm Cutoff 1 ng/mL [facility] Comment: Interpretive Data This test detects the presence or absence of drug compounds using LC Tandem mass spectrometry and is not intended to assess compliance with prescribed medications. While this test is highly specific, false positive and false negative results may occur in very rare circumstances. Contact the laboratory for consultation, if needed. Performance characteristics were determined by the [facility] in a manner consistent with CLIA requirement and has not been cleared or approved by the U.S. Food and Drug Administration. Current interpretive data was last revised 2021. Urine 01/20/2025 8:32 PM CDT 01/20/2025 11:26 PM CDT Eli Brennan TELEPHONE STATION INSTALLER LAB URINE ORDERABLES Final Result [facility] [place] [address] * (ABNORMAL) Drugs of Abuse Screen, Urine with Reflex Confirmation (01/20/2025 8:32 PM CDT) Pathologist [facility] Amphetamine, ur Not Detected CutOff 500ng/mL Comment: Interpretive Data - Amphetamines: Samples containing greater than 500 ng/mL d-methamphetamine or other cross-reacting amphetamine compounds are reported as positive. Amphetamine immunoassays are subject to significant false positive rates due to cross-reactivity of non-amphetamine drugs. Confirmatory testing required for definitive results. Current Interpretive Data was last reviewed 2023. Barbiturates, ur Not Detected CutOff 200ng/mL [facility] Comment: Interpretive Data - Barbiturates: Samples containing greater than 200 ng/mL secobarbital or other cross-reacting barbiturate compounds are reported as positive. False positive and false negative results are possible. Confirmatory testing required for definitive results. Current Interpretive Data was last reviewed 2023. Benzodiazepines, ur Not Detected CutOff 100ng/mL [facility] Comment: Interpretive Data - Benzodiazepines: Samples containing greater than 100 ng/mL nordiazepam or other cross-reacting compounds are reported as positive. False positive and false negative results are possible. Confirmatory testing required for definitive results. Current Interpretive Data was last reviewed 2023. Cannabinoids, ur Not Detected CutOff 50 ng/mL [facility] Comment: Interpretive Data - Cannabinoids: Samples containing greater than 50 ng/mL delta-9 THC -COOH or other cross- reacting compounds are reported as positive. False positive and false negative results are possible. Confirmatory testing required for definitive results. Current Interpretive Data was last reviewed 2023. Cocaine, ur Not Detected CutOff 150ng/mL [facility] Comment: Interpretive Data - Cocaine: Samples containing greater than 150 ng/mL benzoylecgonine or other cross- reacting compounds are reported as positive. False positive and false negative results are possible. Confirmatory testing required for definitive results. Current Interpretive Data was last reviewed 2023. Fentanyl, Ur Screen Positive, presumptive (A) CutOff 5 ng/mL [facility] Comment: Interpretive Data - Fentanyl: Samples containing greater than 5 ng/mL norfentanyl, fentanyl, or other cross-reacting fentanyl compounds are reported as positive. False positive and false negative results are possible. Confirmatory testing required for definitive results. Current Interpretive Data was last reviewed 2024. Methadone, ur Not Detected CutOff 300ng/mL [facility] Comment: Interpretive Data - Methadone: Samples containing greater than 300 ng/mL d,l-methadone or other cross-reacting compounds are reported as positive. False positive and false negative results are possible. Confirmatory testing required for definitive results. Current Interpretive Data was last reviewed 2023. Opiates, ur Not Detected CutOff 300ng/mL [facility] Comment: Interpretive Data - Opiates: Samples containing greater than 300 ng/mL morphine or other cross-reacting compounds are reported as positive. False positive and false negative results are possible. Confirmatory testing required for definitive results. Current Interpretive Data was last reviewed 2023. Oxycodone, ur Not Detected CutOff 100ng/mL [facility] Comment: Interpretive Data - Oxycodone: Samples containing greater than 100 ng/mL oxycodone or other cross-reacting compounds are reported as positive. False positive and false negative results are possible. Confirmatory testing required for definitive results. Current Interpretive Data was last reviewed 2023. Phencyclidine, ur Not Detected CutOff 25 ng/mL [facility] Comment: Interpretive Data - Phencyclidine: Samples containing greater than 25 ng/mL phencyclidine or other cross-reacting compounds are reported as positive. False positive and false negative results are possible. Confirmatory testing required for definitive results. Current Interpretive Data was last reviewed 2023. Urine Creatinine 16 mg/dL [facility] Comment: Interpretive Data Urine Creatinine: < 10 mg/dL is extremely dilute = or > 10 but < 20 mg/dL is dilute = or > 20 mg/dL is normal Current Interpretive Data was last revised on 2018. Urine 01/20/2025 8:32 PM CDT 01/20/2025 11:21 PM CDT Narrative [facility] - 01/21/2025 12:03 AM CDT Drug of Abuse screening is performed by immunoassay for medical purposes only. This is not to be used for Pain Management purposes. If Detected, confirmation testing will be performed for Amphetamines, Cocaine, Fentanyl, Methadone, Opiates, Oxycodone or Phencyclidine. Eli Brennan NP LAB URINE ORDERABLES Final Result [facility] [place] [address] * (ABNORMAL) eGFR (01/20/2025 8:32 PM CDT) eGFR 56(L) >=60 mL/min/1. 73 m2 Comment: Interpretive Data Reference Interval Normal >/= 90 mL/min/1.73m2 Mildly decreased* 60 - 89 mL/min/1.73m2 Mildly to moderately decreased 45 - 59 mL/min/1.73m2 Moderately to severely decreased 30 - 44 mL/min/1.73m2 Severely decreased 15 - 29 mL/min/1.73m2 Kidney Failure < 15 mL/min/1.73m2 *Relative to young adult level Estimated glomerular filtration rate is determined by the 2020 CKD-EPI equation recommended by the National Kidney Foundation (A Unifying Approach to GFR Estimation: Recommendations of the NKF-ASK Task Force on Reassessing the Inclusion of Race in Diagnosing Kidney Disease, JASN 202). The CKD-EPI equation should not be used for patients with unstable renal function and has not been validated in children and those over 70. Current interpretive data was last reviewed 2021. Blood 01/20/2025 8:32 PM CDT 01/20/2025 9:10 PM CDT us Bernardo Lorenz MD LAB BLOOD ORDERABLES Final Resul t [facility] [place] [address] * (ABNORMAL) Urinalysis reflex to microscopic and culture Urine (01/20/2025 8:32 PM CDT) Color, ur Straw Yellow Clarity, ur Clear Clear [facility] Specific gravity, ur 1.012 1.003 - 1.030 [facility] pH, urine 7.0 [facility] Comment: Interpretive Data U rine pH is affected by diet, medications, systemic acid-base disturbances, and renal tubular function. pH may affect urinary stone formation. For example, urine pH below 6.0 may help reduce the tendency for calcium phosphate stones and pH greater than 6.0 may reduce the tendency for uric acid stone formation. Source: [facility] [employer] Current Interpretive Data was last revised on 2017 Protein, ur ql Trace Negative [facility] Glucose, ur ql Negative Negative [facility] Ketones, ur Negative Negative [facility] Bilirubin, ur Negative Negative [facility] Blood, ur 1+(A) Negative [facility] Urobilinogen, ur <2.0 <2.0 mg/dL [facility] Nitrite, ur Negative Negative [facility] Leukocyte esterase, ur 1+(A) Negative [facility] UA reflex comment Reflex to microscopic UA will be performed. [facility] Urine 01/20/2025 8:32 PM CDT 01/20/2025 11:21 PM CDT Eli Brennan TELEPHONE STATION INSTALLER LAB MICROBIOLOGY - G ENERAL ORDERABLES Final Result Performing Organization Address [facility] Co de Phone Number [facility] [place] [address] * (ABNORMAL) Urinalysis, microscopic only (01/20/2025 8:32 PM CDT) WBC, ur 21-50(A) 0 - 5 /HPF RBC, ur 21-50(A) 0 - 2 /HPF [facility] Mucous, ur Present(A) [facility] Culture Reflex Comment Reflex to urine culture will be performed. [facility] Urine 01/20/2025 8:32 PM CDT 01/20/2025 11:22 PM CDT Eli Brennan TELEPHONE STATION INSTALLER LAB URINE ORDERABLES Final Result Performing Organization Address [facility] de Phone Number [facility] [place] [address] * (ABNORMAL) CBC without differential (01/20/2025 8:32 PM CDT) WBC 12.7(H) 3.8 - 9.9 K/cumm Hgb 10.6(L) 11.9 - 15.5 g/dL [facility] Comment:Hemoglobin delta due to apparent blood transfusion. Hct 32.9(L) 35.6 - 45.5 % [facility] Plt 435(H) 150 - 400 K/cumm [facility] MPV 9.3 9.1 - 12.3 fL [facility] RBC 3.99 3.90 - 5.20 M/cumm [facility] MCV 82.5 81.3 - 96.4 fL [facility] MCH 26.6(L) 27.1 - 33.3 pg [facility] MCHC 32.2(L) 32.3 - 35.7 g/dL [facility] RDW CV 13.3 11.1 - 14.9 % [facility] RDW SD 40.0 35.7 - 48.1 fL [facility] NRBC abs 0.00 0.00 - 0.01 K/cumm [facility] Blood 01/20/2025 8:32 PM CDT 01/20/2025 8:59 PM CDT Bernardo Lorenz MD LAB BLOOD ORDERABLES Final Resul t Performing Organization Address City/[facility] Co de Phone Number [facility] [place] [address] * Urine culture Urine (01/20/2025 8:32 PM CDT) Report Final Report: No growth Urine 01/20/2025 8:32 PM CDT 01/21/2025 1:53 AM CDT Narrative [facility] - 01/22/2025 7:04 AM CDT Urine culture reflexed based upon urinalysis results. Testing performed by [facility] ([phone]) Eli Brennan NP LAB MICROBIOLOGY - G ENERAL ORDERABLES Final Result Performing Organization Address [facility] Co de Phone Number [facility] [place] [address] * (ABNORMAL) Phosphorus (01/20/2025 8:32 PM CDT) Phosphorus, pl 5.2(H) 2.3 - 4.5 mg/dL Blood 01/20/2025 8:32 PM CDT 01/20/2025 8:59 PM CDT Bernardo Lorenz MD LAB BLOOD ORDERABLES Final Resul t Performing Organization Address City/[facility]/ZIP Co de Phone Number [facility] [place] [address] * Magnesium (01/20/2025 8:32 PM CDT) [facility] Magnesium 2.1 1.4 - 2.5 mg/dL Blood 01/20/2025 8:32 PM CDT 01/20/2025 8:59 PM CDT Bernardo Lorenz MD LAB BLOOD ORDERABLES Final Resul t Performing Organization Address [facility] Co de Phone Number [facility] [place] [address] * (ABNORMAL) Comprehensive metabolic panel (01/20/2025 8:32 PM CDT) [facility] Sodium 145 135 - 145 mmol/L Potassium, pl 4.8 3.3 - 4.9 mmol/L [facility] Comment:Hemolyzed; Potassium value may be falsely elevated by as much as 0.3-0.5 mmol/L. Suggest redraw and reanalysis. Chloride 108 97 - 110 mmol/L [facility] CO2 27 22 - 32 mmol/L [facility] Anion gap 10 2 - 15 mmol/L [facility] BUN 29(H) 6 - 25 mg/dL [facility] Creatinine 1.07 0.60 - 1.10 mg/dL [facility] Glucose 104 70 - 199 mg/dL [facility] Comment: Interpretive Data Fasting glucose >/= 126 mg/dl is diagnostic for diabetes. Fasting is defined as no caloric intake for at least 8 hours. Fasting glucose between 100 mg/dl to 125 mg/dl is diagnostic of prediabetes. In a patient with classic symptoms of hyperglycemia or hyperglycemic crisis, a random glucose >/= 200 mg/dl is diagnostic for diabetes. In the absence of unequivocal hyperglycemia, results should be confirmed by repeat testing. The classification and Diagnosis of Diabetes Diabetes Care 2021; 46: S19-S40. Current interpretive data was last revised 2022. Calcium 9.6 8.5 - 10.3 mg/dL [facility] Bilirubin, total 0.7 0.1 - 1.2 mg/dL [facility] Protein, pl 7.0 6.5 - 8.5 g/dL [facility] Albumin 3.8 3.5 - 5.0 g/dL [facility] [facility] Alk phos 202(H) 40 - 130 Units/L [facility] ALT 13 7 - 45 Units/L [facility] AST 33 10 - 45 [facility]/L [facility] Comment:Hemolyzed; result ma y be falsely elevated Blood 01/20/2025 8:32 PM CDT 01/20/2025 8:59 PM CDT us Bernardo Lorenz MD LAB BLOOD ORDERABLES Final Resul t [facility] [place] [address] * CT Head WO Contrast (01/20/2025 8:23 PM CDT) Anatomical Region Laterality Modality Head and Neck N/A Computed Tomogra phy 01/20/2025 9:57 PM CDT Impressions 01/21/2025 4:49 AM CDT 1. Interval placement of a right frontal approach subdural drain without significant change in size of a mixed attenuation fluid and now gas-containing right cerebral convexity subdural hematoma with unchanged leftward midline shift and associated mild right-sided uncal herniation. Dictated by: Rodriguez Johnston MD The radiology attending physician has personally reviewed this study, and had reviewed and/or edited this written report and agrees with it. Electronically signed by: Arun Sanchez M.D. Narrative 01/21/2025 4:49 AM CDT EXAMINATION: CT head without contrast HISTORY: Postop drain placement TECHNIQUE: CT of the head was performed with images acquired from skull base to vertex without intravenous contrast. COMPARISON: Same day CT FINDINGS: Postoperative changes from right frontal approach subdural drain placement is present with no sylvian change in caliber of a mixed attenuation fluid and gas-containing right cerebral convexity subdural hematoma. There remains approximately 8 mm of leftward midline shift with mild transtentorial and right-sided uncal herniation. There is effacement of the right lateral ventricles with unchanged caliber of the asymmetrically enlarged left lateral ventricles. There is no significant crowding of the foramen magnum. The visualized portions of the orbits are normal. The visualized portions of the mastoids are normal. The visualized portions of the paranasal sinuses are normal. No fractures are identified. Unchanged right parietal scalp hematoma. Procedure Note Arun Sanchez MD - 01/21/2025 EXAMINATION: CT head without contrast HISTORY: Postop drain placement TECHNIQUE: CT of the head was performed with images acquired from skull base to vertex without intravenous contrast. COMPARISON: Same day CT FINDINGS: Postoperative changes from right frontal approach subdural drain placement is present with no sylvian change in caliber of a mixed attenuation fluid and gas-containing right cerebral convexity subdural hematoma. There remains approximately 8 mm of leftward midline shift with mild transtentorial and right-sided uncal herniation. There is effacement of the right lateral ventricles with unchanged caliber of the asymmetrically enlarged left lateral ventricles. There is no significant crowding of the foramen magnum. The visualized portions of the orbits are normal. The visualized portions of the mastoids are normal. The visualized portions of the paranasal sinuses are normal. No fractures are identified. Unchanged right parietal scalp hematoma. IMPRESSION: 1. Interval placement of a right frontal approach subdural drain without significant change in size of a mixed attenuation fluid and now gas-containing right cerebral convexity subdural hematoma with unchanged leftward midline shift and associated mild right-sided uncal herniation. Dictated by: Rodriguez Johnston MD The radiology attending physician has personally reviewed this study, and had reviewed and/or edited this written report and agrees with it. Electronically signed by: Arun Sanchez M.D. Bernardo Lorenz MD IMG CT PROCEDURES Final Result * Transfuse platelets (01/20/2025 7:23 PM CDT) Blood Bernardo Lorenz MD BLOOD TRANSFUSION ORDERABLES Fin al Result [facility] [place] [address] * PA AN ELECTIVE ENDOTRACHEAL AIRWAY, PA AN PROCEDURE PLACEHOLDER (01/20/2025 7:17 PM CDT) Narrative Radha Neely CRNA - 01/20/2025 7:17 PM CDT Radha Neely CRNA 01/20/2025 7:17 PM Airway Patient location: OR Urgency: elective Indications for airway management: anesthesia and airway protection Difficult airway: no Staff: Placed by: SENIOR BI ARCHITECT: Radha Neely CRNA Airway prep: Preoxygenated: yes Patient position: sniffing Mask difficulty assessment: 0 - not attempted Spontaneous ventilation during airway: absent Sedation level during airway: GA Final airway details: Final airway type: endotracheal airway Tube type: ETT ETT size: 7.0 mm Cuffed: yes Technique used for successful ETT placement: video laryngoscopy Devices/Methods used in placement: intubating stylet Insertion site: oral Blade type: Fermin Video blade type: Hoffman Blade size: 3 Cormack-Lehane (video): grade I - full view of glottis Cuff volume: 8 mL Cuff inflated with: air ETT to teeth: 21 cm Placement verified by: auscultation and CO2 detection Airway secured with: silk tape and tegaderm Number of attempts: 1 us Ricky Hendrickson MD PhD ANESTHESIA ORDERABLES F inal Result * Transfuse platelets (01/20/2025 7:00 PM CDT) Blood us Bernardo Lorenz MD BLOOD TRANSFUSION ORDERABLES Fin al Result [facility] [place] [address] * POCT glucose (01/20/2025 6:07 PM CDT) Glucose, POC 97 70 - 199 mg/dL Blood 01/20/2025 6:07 PM CDT 01/20/2025 6:07 PM CDT Bernardo Lorenz MD LAB POCT ORDERABLES - DEVICE Fin al Result Performing Organization Address [facility]/ZIP Co de Phone Number [facility] [place] [address] * Transfuse RBC (01/20/2025 6:02 PM CDT) Blood Callum Gonzalez MD BLOOD TRANSFUSION ORDERABLES F inal Result Performing Organization Address [facility] Co de Phone Number [facility] [place] [address] * Neuro CT Outside Reference (01/20/2025 5:52 PM CDT) Impressions [facility] - 01/20/2025 5:52 PM CDT These images are for Reference purposes only and have not been reviewed by [facility] Radiology. There will be no report generated by a [facility] Radiologist. Narrative [facility] - 01/20/2025 5:52 PM CDT EXAMINATION: Images For Reference Purposes Only Marie Caballero MD IMG CT PROCEDURES Final Result Performing Organization Address [facility] Co de Phone Number [email or web address] * CT Head WO Contrast (01/20/2025 4:59 PM CDT) Anatomical Region Laterality Modality Head and Neck N/A Computed Tomogra phy 01/20/2025 5:07 PM CDT Impressions 01/20/2025 5:17 PM CDT 1. Increased size of a now 2.3 cm mixed density right cerebral convexity subdural hematoma with progressive locoregional mass effect, leftward midline shift and corresponding leftward uncal herniation. Critical findings were reported to Dr. Lorenz of the neurosurgery service by Dr. Camargo by [employer] secure chat at 17:16 on 01/20/2025 with readback confirmation. Dictated by: Rodriguez Johnston MD The radiology attending physician has personally reviewed this study, and had reviewed and/or edited this written report and agrees with it. Electronically signed by: Adam Camargo MD Narrative 01/20/2025 5:17 PM CDT EXAMINATION: CT head without contrast HISTORY: Stroke, follow-up TECHNIQUE: CT of the head was performed with images acquired from skull base to vertex without intravenous contrast. COMPARISON: 01/12/2025 FINDINGS: Increasing size of a now 2.3 cm mixed density right subdural convexity subdural collection with progressive locoregional mass effect and worsening, now 9 mm of leftward midline shift. There is effacement of the right lateral ventricles with asymmetric dilatation of the left lateral ventricles. A superficial hematoma overlying the right parietal scalp is unchanged. There is leftward transtentorial herniation as well as mild right uncal herniation, new from the previous examination. Basal cisterns remain grossly patent. No substantial crowding of the foramen magnum. The youngblood-white matter differentiation is normal. The visualized portions of the orbits are normal. The visualized portions of the mastoids are normal. The visualized portions of the paranasal sinuses are normal. No fractures are identified. Intracranial atherosclerosis present. Procedure Note Adam Camargo MD - 01/20/2025 EXAMINATION: CT head without contrast HISTORY: Stroke, follow-up TECHNIQUE: CT of the head was performed with images acquired from skull base to vertex without intravenous contrast. COMPARISON: 01/12/2025 FINDINGS: Increasing size of a now 2.3 cm mixed density right subdural convexity subdural collection with progressive locoregional mass effect and worsening, now 9 mm of leftward midline shift. There is effacement of the right lateral ventricles with asymmetric dilatation of the left lateral ventricles. A superficial hematoma overlying the right parietal scalp is unchanged. There is leftward transtentorial herniation as well as mild right uncal herniation, new from the previous examination. Basal cisterns remain grossly patent. No substantial crowding of the foramen magnum. The youngblood-white matter differentiation is normal. The visualized portions of the orbits are normal. The visualized portions of the mastoids are normal. The visualized portions of the paranasal sinuses are normal. No fractures are identified. Intracranial atherosclerosis present. IMPRESSION: 1. Increased size of a now 2.3 cm mixed density right cerebral convexity subdural hematoma with progressive locoregional mass effect, leftward midline shift and corresponding leftward uncal herniation. Critical findings were reported to Dr. Lorenz of the neurosurgery service by Dr. Camargo by [employer] secure chat at 17:16 on 01/20/2025 with readback confirmation. Dictated by: Rodriguez Johnston MD The radiology attending physician has personally reviewed this study, and had reviewed and/or edited this written report and agrees with it. Electronically signed by: Adam Camargo MD Eli Brennan TELEPHONE [employer]ATION INSTALLER IMG CT PROCEDURES Fi nal Result * Troponin I high-sensitivity series (baseline, 2hr, 4hr, 6hr) (01/20/2025 3:44 PM CDT) Trop I hs <4 <=17 ng/L Comment: Interpretive Data For further hscTnI resources including the diagnostic algorithm and an aid in interpretation, copy and paste this link: [email or web address] Current Interpretive Data last revised 2020. Blood 01/20/2025 3:44 PM CDT 01/20/2025 4:11 PM CDT Eli Brennan NP LAB BLOOD ORDERABLES Final Result [facility] [place] [address] * (ABNORMAL) Urinalysis reflex to microscopic and culture Urine (01/20/2025 3:32 PM CDT) Pathologist [facility] Color, ur Straw Yellow Clarity, ur Clear Clear [facility] Specific gravity, ur 1.009 1.003 - 1.030 [facility] pH, urine 6.5 [facility] Comment: Interpretive Data U rine pH is affected by diet, medications, systemic acid-base disturbances, and renal tubular function. pH may affect urinary stone formation. For example, urine pH below 6.0 may help reduce the tendency for calcium phosphate stones and pH greater than 6.0 may reduce the tendency for uric acid stone formation. Source: MyDoc Current Interpretive Data was last revised on 2017 Protein, ur ql Trace Negative [facility] Glucose, ur ql Negative Negative [facility] Ketones, ur Negative Negative [facility] Bilirubin, ur Negative Negative [facility] Blood, ur 1+(A) Negative [facility] Urobilinogen, ur <2.0 <2.0 mg/dL [facility] Nitrite, ur Negative Negative [facility] Leukocyte esterase, ur 3+(A) Negative [facility] UA reflex comment Reflex to microscopic UA will be performed. [facility] Urine 01/20/2025 3:32 PM CDT 01/20/2025 3:54 PM CDT Bernardo Lorenz MD LAB MICROBIOLOGY - GENERAL ORDER ALLAN Final Result Performing Organization Address [facility] Co de Phone Number [facility] [place] [employer] [address] * (ABNORMAL) Urinalysis, microscopic only (01/20/2025 3:32 PM CDT) WBC, ur 21-50(A) 0 - 5 /HPF RBC, ur 0-2 0 - 2 /HPF [facility] Epithelial cells, squamous, ur 1-5 0 - 5 /HPF [facility] Bacteria, ur 2+(A) [facility] Mucous, ur Present(A) [facility] Culture Reflex Comment Reflex to urine culture will be performed. [facility] Urine 01/20/2025 3:32 PM CDT 01/20/2025 3:54 PM CDT Bernardo Lorenz MD LAB URINE ORDERABLES Final Resul t Performing Organization Address [facility]/ZIP Co de Phone Number [facility] [place] [place] [address] * (ABNORMAL) Urine culture Urine (01/20/2025 3:32 PM CDT) Report Final Report: Greater than or equal to 100,000 colonies/mL of Escherichia coli (.) Organism ESCHERICHIA COLI [facility] Urine 01/20/2025 3:32 PM CDT 01/20/2025 8:53 PM CDT Narrative [facility] - 01/23/2025 5:22 AM CDT Urine culture reflexed based upon urinalysis results. Testing performed by [facility] ([phone]) Organism Antibiotic Method Susceptibility Escherichia coli Ampicillin INTERPRETATION Susceptible Escherichia coli Cefazolin INTERPRETATION Susceptible Escherichia coli Nitrofurantoin INTERPRETATION Susceptible Escherichia coli Gentamicin INTERPRETATION Susceptible Escherichia coli Trimethoprim with Sulfamethoxazole IN TERPRETATION Susceptible Escherichia coli Meropenem INTERPRETATION Susceptible Escherichia coli Cefepime INTERPRETATION Susceptible Escherichia coli Ciprofloxacin INTERPRETATION Susceptible Escherichia coli Ceftazidime INTERPRETATION Susceptible Escherichia coli Ceftriaxone INTERPRETATION Susceptible Escherichia coli Piperacillin/Tazobactam INTERPRETATIO N Susceptible Escherichia coli Cephalexin INTERPRETATION Susceptible Escherichia coli Cefuroxime-axetil INTERPRETATION Susceptible Escherichia coli Cefdinir INTERPRETATION Susceptible Bernardo Lorenz MD LAB MICROBIOLOGY - GENERAL ORDER ALLAN Final Result Performing Organization Address [facility]/ZIP Co de Phone Number [facility] [place] [address] * Type and screen (01/20/2025 3:29 PM CDT) Pathologist [facility] Meeta, indirect Negative ABO Rh A Positive [facility] Blood 01/20/2025 3:29 PM CDT 01/20/2025 4:17 PM CDT Narrative [facility] - 01/20/2025 5:14 PM CDT Has the patient had Daratumumab or Isatuximab in the past 6 months?->Unknown Bernardo Lorenz MD LAB BLOOD BANK TEST ORDERABLES F inal Result [facility] [place] [address] * (ABNORMAL) Phosphorus (01/20/2025 3:29 PM CDT) Pathologist [facility] Phosphorus, pl 4.8(H) 2.3 - 4.5 mg/dL Blood 01/20/2025 3:2 9 PM CDT 01/20/2025 4:11 PM CDT Result [facility] Bernardo Lorenz MD LAB BLOOD ORDERABLES Final Resul t Performing Organization Address [facility] Phone Number [facility] [place] [address] * Magnesium (01/20/2025 3:29 PM CDT) Magnesium 1.8 1.4 - 2.5 mg/dL Blood 01/20/2025 3:29 PM CDT 01/20/2025 4:11 PM CDT Result [facility] Bernardo Lorenz MD LAB BLOOD ORDERABLES Final Resul t Performing Organization Address [facility] Phone Number [facility] [place] [employer] [place] [address] * (ABNORMAL) Gamma GT (01/20/2025 3:29 PM CDT) GGT 55(H) 5 - 35 Units/L Blood 01/20/2025 3:29 PM CDT 01/20/2025 4:11 PM CDT Eli Brennan NP LAB BLOOD ORDERABLES Final Result Performing Organization Address [facility] de Phone Number [facility] [place] [employer] [place] [address] * Creatine kinase (CK), total (01/20/2025 3:29 PM CDT) CK 30 30 - 200 Units/L Blood 01/20/2025 3:29 PM CDT 01/20/2025 4:11 PM CDT Eli Brennan NP LAB BLOOD ORDERABLES Final Result Performing Organization Address [facility] Co de Phone Number [facility] [place] [address] * ECG 12 lead (01/20/2025 3:26 PM CDT) Ventricular Rate EKG/Min 82 BPM [facility] Atrial Rate 82 BPM [facility] PA-Interval (MSEC) 152 ms [facility] QRS-Interval (MSEC) 84 ms [facility] QT-Interval (MSEC) 374 ms [facility] QTc 436 ms [facility] P [place] 59 degrees [facility] R [place] 75 degrees [facility] T [place] 49 degrees [facility] Diagnosis Normal sinus rhythm Normal ECG No previous ECGs available Confirmed by REJI ARTEAGA M.D ([id number]) on 01/22/2025 10:13:45 AM [facility] 01/20/2025 3:26 PM CDT 01/22/2025 10:13 AM CDT Bernardo Lorenz MD ECG ORDERABLES Final Result Performing Organization Address [facility] de Phone Number [facility] * POCT glucose (01/20/2025 3:10 PM CDT) Pathologist [facility] Glucose, POC 85 70 - 199 mg/dL Blood 01/20/2025 3:10 PM CDT 01/20/2025 3:10 PM CDT Bernardo Lorenz MD LAB POCT ORDERABLES - DEVICE Fin al Result Performing Organization Address [facility]/ZIP Co de Phone Number [facility] [place] [address] * PA CRITICAL CARE ILL/INJURED PATIENT INIT 30-74 MIN (01/20/2025 1:55 PM CDT) Narrative Lonnie Laguna MD - 01/20/2025 1:55 PM CDT Lonnie Laguna MD 01/20/2025 1:56 PM Critical Care Performed by: Lonnie Laguna MD Authorized by: Lonnie Laguna MD Critical care provider statement: As reflected in the history, physical exam, orders, notes, and/or MDM, I was personally present while the patient was critically ill and provided critical care services for 33 minutes, excluding time involved in separately billable procedures. 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 I ordered and reviewed test results and/or imaging studies. I spent time discussing the management of this critically ill patient with consultants and the medical staff. I spent time discussing the management and therapeutic options for this critically ill patient with the patient themselves or with the appropriate designated surrogate decision-maker. I spent time documenting in the medical record. I admitted this patient to an Intensive Care unit (ICU) and discussed management with the admitting team. Lonnie Laguna MD IN CLINIC/BEDSIDE ORDERA BLES Final Result * Prepare platelets: 2 Units (01/20/2025 1:08 PM CDT) [facility] Product code [id number] Unit Number [id number] F [facility] Product Blood Type APOS [facility] Dispense Status PRESUMED TRANSFUSED [facility] Blood Venous blood specimen / Unknown 01/20/2025 1:08 PM CDT 01/20/2025 1:07 PM CDT Narrative [facility] - 01/21/2025 8:00 AM CDT Other indication->SDH growing- NSGY on anti plt Are special requirements needed? (all products are leukoreduced)->No Date required:-59171556 PLT # of Units:-2-Units Reasons:-Other (Specify)} Callum Gonzalez MD BLOOD BANK PRODUCT ORDERABLES Final Result Performing Organization Address [facility] Co de Phone Number [facility] [place] [employer] [place] [address] * Prepare RBC: 1 Units (01/20/2025 1:03 PM CDT) Product code [id number] Unit Number [id number] N [facility] Product Blood Type ANEG [facility] Dispense Status PRESUMED TRANSFUSED [facility] Blood 01/20/2025 1:03 PM CDT 01/20/2025 1:02 PM CDT Narrative [facility] - 01/21/2025 6:01 AM CDT Are special requirements needed? (All products are leukoreduced and CMV- safe)- >No Date required:-20250120 LRRBC # of [id number] Reasons:-Hgb <7 g/dL} Callum Gonzalez MD BLOOD BANK PRODUCT ORDERABLES Final Result Performing Organization Address [facility] Co de Phone Number [facility] [place] [employer] [place] [address] * XR Chest 1 View (01/20/2025 12:47 PM CDT) Anatomical Region Laterality Modality Body, Chest N/A Computed Radiogr aphy 01/20/2025 12:5 2 PM CDT Impressions 01/20/2025 12:52 PM CDT Comparison to 01/09/2025. No focal consolidation effusion or pneumothorax. Aortic atherosclerosis. Cardiomediastinal silhouette is normal. Overall, no substantial change. Electronically signed by: Christopher Carlos M.D. Narrative 01/20/2025 12:52 PM CDT EXAMINATION: 1 view chest radiograph Procedure Note Christopher Carlos MD PhD - 01/20/2025 EXAMINATION: 1 view chest radiograph IMPRESSION: Comparison to 01/09/2025. No focal consolidation effusion or pneumothorax. Aortic atherosclerosis. Cardiomediastinal silhouette is normal. Overall, no substantial change. Electronically signed by: Christopher Carlos M.D. Callum Gonzalez MD IMG XR PROCEDURES Final Result * ABO/Rh (01/20/2025 12:40 PM CDT) ABO Rh A Positive Blood 01/20/2025 12:4 0 PM CDT 01/20/2025 1:15 PM CDT Narrative [facility] - 01/20/2025 1:40 PM CDT Brenda PIPER notified to add AbSc into ABO/Rh sample. Callum Gonzalez MD LAB BLOOD BANK TEST ORDERABLES Final Result Performing Organization Address [facility]/ZIP Co de Phone Number [facility] [place] [address] * Antibody screen (01/20/2025 12:40 PM CDT) Meeta, indirect Negative Blood 01/20/2025 12:4 0 PM CDT 01/20/2025 1:15 PM CDT Lonnie Laguna MD LAB BLOOD BANK TEST ORDE RABLES Final Result Performing Organization Address City/[facility] Co de Phone Number [facility] [place] [address] * Prepare platelets: 2 Units (01/20/2025 12:37 PM CDT) Product code [id number] Unit Number [id number] P [facility] Product Blood Type APOS [facility] Dispense Status PRESUMED TRANSFUSED [facility] Blood Venous blood specimen / Unknown 01/20/2025 12:37 PM CDT 01/20/2025 12:38 PM CDT Narrative [facility] - 01/21/2025 8:00 AM CDT Other indication->increase intercranial hemorrhage on plavix and ASA Are special requirements needed? (all products are leukoreduced)->No Date required:-20250120 PLT # of Units:-2-Units Reasons:-Other (Specify)} Callum Gonzalez MD BLOOD BANK PRODUCT ORDERABLES Final Result Performing Organization Address [facility] Co de Phone Number [facility] [place] [address] * Sepsis Lactate w/ Reflex (01/20/2025 12:28 PM CDT) Pathologist [facility] Sepsis Lactate 1.4 0.7 - 2.0 mmol/L Blood 01/20/2025 12:2 8 PM CDT 01/20/2025 12:33 PM CDT Callum Gonzalez MD LAB BLOOD ORDERABLES Final Res ult Performing Organization Address [facility] de Phone Number [facility] [place] [address] * (ABNORMAL) eGFR (01/20/2025 12:28 PM CDT) eGFR 45(L) >=60 mL/min/1. 73 m2 Comment: Interpretive Data Reference Interval Normal >/= 90 mL/min/1.73m2 Mildly decreased* 60 - 89 mL/min/1.73m2 Mildly to moderately decreased 45 - 59 mL/min/1.73m2 Moderately to severely decreased 30 - 44 mL/min/1.73m2 Severely decreased 15 - 29 mL/min/1.73m2 Kidney Failure < 15 mL/min/1.73m2 *Relative to young adult level Estimated glomerular filtration rate is determined by the 2020 CKD-EPI equation recommended by the National Kidney Foundation (A Unifying Approach to GFR Estimation: Recommendations of the NKF-ASK Task Force on Reassessing the Inclusion of Race in Diagnosing Kidney Disease, JASN 2020). The CKD-EPI equation should not be used for patients with unstable renal function and has not been validated in children and those over 70. Current interpretive data was last reviewed 2021. Blood 01/20/2025 12:2 8 PM CDT 01/20/2025 12:36 PM CDT us Callum Gonzalez MD LAB BLOOD ORDERABLES Final Res ult [facility] [place] [address] * (ABNORMAL) Differential, auto (01/20/2025 12:28 PM CDT) Neutrophil abs 8.0(H) 1.5 - 6.5 K/cumm Imm gran abs 0.2(H) 0.0 - 0.1 K/cumm [facility] Lymphocyte abs 3.5(H) 0.8 - 3.3 K/cumm [facility] Monocyte abs 0.8 0.2 - 0.8 K/cumm [facility] Eosinophil abs 1.2(H) 0.0 - 0.5 K/cumm [facility] Basophil abs 0.1 0.0 - 0.1 K/cumm [facility] Neutrophil pct 58.1 % [facility] Comment: Interpretive Data Percent cell count reference ranges are not reported, since discordance with absolute values may lead to misinterpretation of CBC data. Current Interpretive Data was last revised on 2018. Imm gran pct 1.3 % [facility] Comment: Interpretive Data Percent cell count reference ranges are not reported, since discordance with absolute values may lead to misinterpretation of CBC data. Current Interpretive Data was last revised on 2018. Lymphocyte pct 25.5 % [facility] Comment: Interpretive Data Percent cell count reference ranges are not reported, since discordance with absolute values may lead to misinterpretation of CBC data. Current Interpretive Data was last revised on 2018. Monocyte pct 6.1 % [facility] Comment: Interpretive Data Percent cell count reference ranges are not reported, since discordance with absolute values may lead to misinterpretation of CBC data. Current Interpretive Data was last revised on 2018. Eosinophil pct 8.5 % [facility] Comment: Interpretive Data Percent cell count reference ranges are not reported, since discordance with absolute values may lead to misinterpretation of CBC data. Current Interpretive Data was last revised on 2018. Basophil pct 0.5 % [facility] Comment: Interpretive Data Percent cell count reference ranges are not reported, since discordance with absolute values may lead to misinterpretation of CBC data. Current Interpretive Data was last revised on 2018. Blood 01/20/2025 12:2 8 PM CDT 01/20/2025 12:36 PM CDT us Callum Gonzalez MD LAB BLOOD ORDERABLES Final Res ult Performing Organization Address City/[facility]/ZIP Co de Phone Number [facility] [place] [address] * POCT glucose (01/20/2025 12:28 PM CDT) [facility] Glucose, POC 112 70 - 199 mg/dL Blood 01/20/2025 12:2 8 PM CDT 01/20/2025 12:28 PM CDT us Notinfile Unknown LAB POCT ORDERABLES - DEVICE F inal Result Performing Organization Address [facility] Co de Phone Number [facility] [place] [address] * (ABNORMAL) CBC with auto differential (01/20/2025 12:28 PM CDT) [facility] WBC 13.7(H) 3.8 - 9.9 K/cumm Hgb 6.7(L) 11.9 - 15.5 g/dL [facility] Hct 21.0(L) 35.6 - 45.5 % [facility] Plt 472(H) 150 - 400 K/cumm [facility] MPV 9.5 9.1 - 12.3 fL [facility] RBC 2.52(L) 3.90 - 5.20 M/cumm [facility] MCV 83.3 81.3 - 96.4 fL [facility] MCH 26.6(L) 27.1 - 33.3 pg [facility] MCHC 31.9(L) 32.3 - 35.7 g/dL [facility] RDW CV 13.4 11.1 - 14.9 % [facility] RDW SD 40.7 35.7 - 48.1 fL [facility] NRBC abs 0.00 0.00 - 0.01 K/cumm [facility] Blood 01/20/2025 12:2 8 PM CDT 01/20/2025 12:36 PM CDT Callum Gonzalez MD LAB BLOOD ORDERABLES Final Res ult Performing Organization Address [facility] Co de Phone Number [facility] [place] [employer] [address] * aPTT (01/20/2025 12:28 PM CDT) aPTT 28 28 - 38 sec Comment: Interpretive Data Heparin therapeutic range: 66.0 - 100.0 seconds. Range based on correlation with therapeutic heparin activity range of 0.3 - 0.7 Units/mL. Current interpretive data was last revised on 2023. Blood 01/20/2025 12:2 8 PM CDT 01/20/2025 12:38 PM CDT Callum Gonzalez MD LAB BLOOD ORDERABLES Final Res ult Performing Organization Address [facility] Co de Phone Number [facility] [place] [address] * Protime-INR (01/20/2025 12:28 PM CDT) PT 11.2 9.7 - 13.0 sec INR 1.04 0.90 - 1.20 [facility] Comment: Interpretive data Oral anticoagulant therapeutic ranges: Venous thromboembolism prophylaxis or treatment: 2.0-3.0 CARDIOLOGY Standard range: 2.0-3.0 High-intensity range: 2.5-3.5 Refer to indication-specific guidelines for appropriate target ranges for prosthetic heart valve replacement. Current interpretive data was last revised on 2019. Blood 01/20/2025 12:2 8 PM CDT 01/20/2025 12:38 PM CDT us Callum Gonzalez MD LAB BLOOD ORDERABLES Final Res ult [facility] [place] [address] * (ABNORMAL) Lipid panel (01/20/2025 12:28 PM CDT) Cholesterol 152 30 - 199 mg/dL Comment: Interpretive Data Ages < or = 19 years Acceptable: <170 mg/dL Borderline high: 170-199 mg/dL High: >or= 200 mg/dL Ages > or = 20 years Desirable: <200 mg/dL Borderline high: 200-239 mg/dL High: >or= 240 mg/dL Literature References: 1. Expert Panel on Integrated Guidelines for Cardiovascular Health and Risk Reduction in Children and Adolescents. Pediatrics 2011;128:S213 2. NCEP Expert Panel. Circulation 2004;110:227 Current Interpretive Data was last revised on 2018. Triglycerides 319(H) <=149 mg/dL [facility] Comment: Interpretive Data Ages < or = 9 years Acceptable: <75 mg/dL Borderline high: 75-99 mg/dL High: >or= 100 mg/dL Ages 10 to 20 years Acceptable: <90 mg/dL Borderline high: 90-129 mg/dL High: >or= 130 mg/dL Ages > or = 20 years Desirable: <150 mg/dL Borderline high: 150-199 mg/dL High: 200-499 mg/dL Very high: >or= 499 mg/dL Literature References: 1. Expert Panel on Integrated Guidelines for Cardiovascular Health and Risk Reduction in Children and Adolescents. Pediatrics 2011;128:S213 2. NCEP Expert Panel. Circulation 2004;110:227 Current Interpretive Data was last revised on 2018. HDL 25(L) >=40 mg/dL [facility] Comment: Interpretive Data Ages < or = 19 years Acceptable: >45 mg/dL Borderline low: 40-45 mg/dL Low: <40 mg/dL Ages > or = 20 years Desirable: >or= 60 mg/dL Low: <40 mg/dL Literature References: 1. Expert Panel on Integrated Guidelines for Cardiovascular Health and Risk Reduction in Children and Adolescents. Pediatrics 2011;128:S213 2. NCEP Expert Panel. Circulation 2004;110:227 Current Interpretive Data was last revised on 2018. LDL, calculated 75 <=129 mg/dL [facility] Comment: Interpretive Data Ages < or = 19 years Acceptable: <110 mg/dL Borderline high: 110-129 mg/dL High: >or= 130 mg/dL Ages > or = 20 years Optimal: <100 mg/dL Near optimal: 100-129 mg/dL Borderline high: 130-159 mg/dL High: >160 mg/dL Calculated using the Isaiah LDL-C estimating equation. This equation was implemented on 2024. Prior to this date LDL-C was estimated using the Friedewald equation. Literature References: 1. Expert Panel on Integrated Guidelines for Cardiovascular Health and Risk Reduction in Children and Adolescents. Pediatrics 2011;128:S213 2. NCEP Expert Panel. Circulation 2004;110:227 3. Isaiah Chow et al. JORDAN Cardiol. 2019March 13;5(5):540-548. doi: [email or web address] Current Interpretive Data was last revised on 2024. Non-HDL Cholesterol 127 mg/dL [facility] Comment: Interpretive Data Ages < or = 19 years Acceptable: <120 mg/dL Borderline high: 120-144 mg/dL High: >145 mg/dL Ages > or = 20 years When triglycerides are >200 mg/dL, Non-HDL cholesterol is a secondary target of therapy with treatment goals that are 30 mg/dL greater than the LDL cholesterol target. Literature References: 1. Expert Panel on Integrated Guidelines for Cardiovascular Health and Risk Reduction in Children and Adolescents. Pediatrics 2011;128:S213 2. NCEP Expert Panel. Circulation 2004;110:227 Current Interpretive Data was last revised on 2018. Chol/HDL ratio 6 [facility] Blood 01/20/2025 12:2 8 PM CDT 01/20/2025 12:36 PM CDT Bernardo Lorenz MD LAB BLOOD ORDERABLES Final Resul t [facility] [place] [address] * (ABNORMAL) Comprehensive metabolic panel (01/20/2025 12:28 PM CDT) Sodium 139 135 - 145 mmol/L Potassium, pl 4.4 3.3 - 4.9 mmol/L [facility] Chloride 103 97 - 110 mmol/L [facility] CO2 27 22 - 32 mmol/L [facility] Anion gap 9 2 - 15 mmol/L [facility] BUN 36(H) 6 - 25 mg/dL [facility] Creatinine 1.29(H) 0.60 - 1.10 mg/dL [facility] Glucose 94 70 - 199 mg/dL [facility] Comment: Interpretive Data Fasting glucose >/= 126 mg/dl is diagnostic for diabetes. Fasting is defined as no caloric intake for at least 8 hours. Fasting glucose between 100 mg/dl to 125 mg/dl is diagnostic of prediabetes. In a patient with classic symptoms of hyperglycemia or hyperglycemic crisis, a random glucose >/= 200 mg/dl is diagnostic for diabetes. In the absence of unequivocal hyperglycemia, results should be confirmed by repeat testing. The classification and Diagnosis of Diabetes Diabetes Care 2021; 46: S19-S40. Current interpretive data was last revised 2022. Calcium 10.1 8.5 - 10.3 mg/dL [facility] Bilirubin, total 0.2 0.1 - 1.2 mg/dL [facility] Protein, pl 7.3 6.5 - 8.5 g/dL [facility] Albumin 3.8 3.5 - 5.0 g/dL [facility] Alk phos 215(H) 40 - 130 Units/L [facility] ALT 11 7 - 45 Units/L [facility] AST 15 10 - 45 Units/L [facility] Blood 01/20/2025 12:2 8 PM CDT 01/20/2025 12:36 PM CDT Callum Gonzalez MD LAB BLOOD ORDERABLES Final Res ult Performing Organization Address [facility] Co de Phone Number [facility] [place] [address] * POCT glucose (01/15/2025 12:04 PM CART PUSHER) Glucose, POC 164 70 - 199 mg/dL Blood 01/15/2025 12:0 4 PM CART PUSHER 01/15/2025 12:04 PM CART PUSHER Bethany Laurent DO LAB POCT ORDERABLES - DEVICE Final Result Performing Organization Address [facility] Co de Phone Number [facility] [place] [address] * (ABNORMAL) Hemoglobin and hematocrit (01/15/2025 10:11 AM CART PUSHER) Hgb 9.4(L) 11.9 - 15.5 g/dL Hct 29.5(L) 35.6 - 45.5 % [facility] Blood 01/15/2025 10:1 1 AM CART PUSHER 01/15/2025 10:24 AM CART PUSHER Honey Sanchez NP LAB BLOOD ORDERABLES Fi nal Result Performing Organization Address [facility] Co de Phone Number [facility] [place] [employer] [address] * POCT glucose (01/15/2025 8:01 AM CART PUSHER) Glucose, POC 164 70 - 199 mg/dL Blood 01/15/2025 8:01 AM CART PUSHER 01/15/2025 8:01 AM CART PUSHER Bethany Ryandana DO LAB POCT ORDERABLES - DEVICE Final Result Performing Organization Address City/[facility] Co de Phone Number [facility] [employer] [place] [address] * POCT glucose (01/14/2025 8:17 PM CART PUSHER) Glucose, POC 165 70 - 199 mg/dL Blood 01/14/2025 8:17 PM CART PUSHER 01/14/2025 8:17 PM CART PUSHER Bethany Masha Millerkorey DO LAB POCT ORDERABLES - DEVICE Final Result Performing Organization Address [facility] [place] [address] * POCT glucose (01/14/2025 5:13 PM CART PUSHER) Glucose, POC 156 70 - 199 mg/dL Blood 01/14/2025 5:13 PM CART PUSHER 01/14/2025 5:13 PM CART PUSHER Bethany Laurent DO LAB POCT ORDERABLES - DEVICE Final Result Performing Organization Address [facility] Co de Phone Number [facility] [place] [address] * POCT glucose (01/14/2025 11:37 AM CART PUSHER) Glucose, POC 129 70 - 199 mg/dL Blood 01/14/2025 11:3 7 AM CART PUSHER 01/14/2025 11:37 AM CART PUSHER Bethany Masha Millerpatdana DO LAB POCT ORDERABLES - DEVICE Final Result Performing Organization Address City/[facility] Co de Phone Number [facility] [place] [address] * POCT glucose (01/14/2025 7:35 AM CART PUSHER) Glucose, POC 160 70 - 199 mg/dL Blood 01/14/2025 7:35 AM CART PUSHER 01/14/2025 7:35 AM CART PUSHER [facility] DO LAB POCT ORDERABLES - DEVICE Final Result Performing Organization Address City/[facility] [place] [address] * (ABNORMAL) POCT glucose (01/13/2025 8:35 PM CART PUSHER) Glucose, POC 212(H) 70 - 199 mg/dL Blood 01/13/2025 8:35 PM CART PUSHER 01/13/2025 8:35 PM CART PUSHER [facility] POCT ORDERABLES - DEVICE Final Result Performing Organization Address [facility] [place] [address] * POCT glucose (01/13/2025 4:55 PM CART PUSHER) Glucose, POC 141 70 - 199 mg/dL Blood 01/13/2025 4:55 PM CART PUSHER 01/13/2025 4:55 PM CART PUSHER [facility] POCT ORDERABLES - DEVICE Final Result Performing Organization Address [facility] Co [place] [address] * POCT glucose (01/13/2025 11:14 AM CART PUSHER) Glucose, POC 155 70 - 199 mg/dL Blood 01/13/2025 11:1 4 AM CART PUSHER 01/13/2025 11:14 AM CART PUSHER Bethany Laurent DO LAB POCT ORDERABLES - DEVICE Final Result Performing Organization Address [facility] de Phone Number [facility] [place] [address] * (ABNORMAL) Hemoglobin A1c (01/13/2025 8:30 AM CART PUSHER) Hgb A1C 6.9(H) 4.0 - 5.6 % Estimated Average Glucose 151 mg/dL [facility] Comment: The ADA recommends reporting an estimated Average Glucose (eAG) with all Hemoglobin A1c results using the equation derived from a study of 507 normal and diabetic adults. Minority populations were underrepresented and children were not included. (Diabetes Care 2020; 43(S1): S66-S76). The eAG is not equivalent to a fasting glucose. Blood 01/13/2025 8:30 AM CART PUSHER 01/13/2025 9:21 AM CART PUSHER Jocelynn Graham [employer] LAB BLOOD ORDERABLES Final Result Performing Organization Address [facility] [place] [address] * POCT glucose (01/13/2025 7:31 AM CART PUSHER) Glucose, POC 174 70 - 199 mg/dL Blood 01/13/2025 7:31 AM CART PUSHER 01/13/2025 7:31 AM CART PUSHER Bethany Laurent DO LAB POCT ORDERABLES - DEVICE Final Result Performing Organization Address [facility] de Phone Number [facility] [place] [place] [address] * POCT glucose (01/12/2025 11:59 PM CART PUSHER) Glucose, POC 151 70 - 199 mg/dL Blood 01/12/2025 11:5 9 PM CART PUSHER 01/12/2025 11:59 PM CART PUSHER Bethany Laurent DO LAB POCT ORDERABLES - DEVICE Final Result [facility] [place] [address] * CT Head WO Contrast (01/12/2025 11:33 PM CART PUSHER) Anatomical Region Laterality Modality Head and Neck N/A Computed Tomogra phy 01/12/2025 11:4 3 PM CART PUSHER Impressions 01/13/2025 12:46 PM CART PUSHER Overall stable appearance of right cerebral convexity subdural hematoma with unchanged 3 mm leftward midline shift. Dictated by: Honey Bills MD The radiology attending physician has personally reviewed this study, and had reviewed and/or edited this written report and agrees with it. Electronically signed by: Jamari Rai M.D. Narrative 01/13/2025 12:46 PM CART PUSHER EXAMINATION: CT head without contrast HISTORY: 69 years-old Female with subdural hematoma. TECHNIQUE: CT of the head was performed with images acquired from skull base to vertex without intravenous contrast. COMPARISON: None Available. FINDINGS: There is a unchanged right parietal scalp hematoma and subjacent subdural hematoma of mixed density along the right cerebral convexity. The subdural hematoma measures up to 9 mm in depth, unchanged from prior imaging. Again seen is localized mass effect on the right lateral ventricle with unchanged 3 mm of right to left midline shift. The youngblood-white matter differentiation is normal. The visualized portions of the orbits are normal. The visualized portions of the mastoids are normal. The visualized portions of the paranasal sinuses are normal. No fractures are identified. There are atherosclerotic calcifications of the intracranial internal carotid arteries and vertebral arteries. Procedure Note Jamari Rai MD PhD - 01/13/2025 EXAMINATION: CT head without contrast HISTORY: 69 years-old Female with subdural hematoma. TECHNIQUE: CT of the head was performed with images acquired from skull base to vertex without intravenous contrast. COMPARISON: None Available. FINDINGS: There is a unchanged right parietal scalp hematoma and subjacent subdural hematoma of mixed density along the right cerebral convexity. The subdural hematoma measures up to 9 mm in depth, unchanged from prior imaging. Again seen is localized mass effect on the right lateral ventricle with unchanged 3 mm of right to left midline shift. The youngblood-white matter differentiation is normal. The visualized portions of the orbits are normal. The visualized portions of the mastoids are normal. The visualized portions of the paranasal sinuses are normal. No fractures are identified. There are atherosclerotic calcifications of the intracranial internal carotid arteries and vertebral arteries. IMPRESSION: Overall stable appearance of right cerebral convexity subdural hematoma with unchanged 3 mm leftward midline shift. Dictated by: Honey Bills MD The radiology attending physician has personally reviewed this study, and had reviewed and/or edited this written report and agrees with it. Electronically signed by: Jamari Rai M.D. Bethany Laurent DO IMG CT PROCEDURES F inal Result * POCT glucose (01/12/2025 9:56 PM CART PUSHER) Glucose, POC 147 70 - 199 mg/dL Blood 01/12/2025 9:56 PM CART PUSHER 01/12/2025 9:56 PM CART PUSHER Bethany Laurent DO LAB POCT ORDERABLES - DEVICE Final Result [facility] [place] [address] * POCT glucose (01/12/2025 5:12 PM CART PUSHER) Glucose, POC 130 70 - 199 mg/dL Blood 01/12/2025 5:12 PM CART PUSHER 01/12/2025 5:12 PM CART PUSHER Bethany Flanagan [employer] DO LAB POCT ORDERABLES - DEVICE Final Result Performing Organization Address City/[facility]/ZIP Co de Phone Number [facility] [place] [address] * POCT glucose (01/12/2025 11:36 AM CART PUSHER) Glucose, POC 166 70 - 199 mg/dL Blood 01/12/2025 11:3 6 AM CART PUSHER 01/12/2025 11:36 AM CART PUSHER Bethany Masha Imitixkorey DO LAB POCT ORDERABLES - DEVICE Final Result Performing Organization Address [facility] Co de Phone Number [facility] [place] [address] * POCT glucose (01/12/2025 8:11 AM CART PUSHER) Glucose, POC 139 70 - 199 mg/dL Blood 01/12/2025 8:11 AM CART PUSHER 01/12/2025 8:11 AM CART PUSHER Bethany Masha [facility] DO LAB POCT ORDERABLES - DEVICE Final Result Performing Organization Address City/[facility] Co de Phone Number [facility] [place] [address] * (ABNORMAL) eGFR (01/11/2025 9:49 PM CART PUSHER) eGFR 36(L) >=60 mL/min/1. 73 m2 Comment: Interpretive Data Reference Interval Normal >/= 90 mL/min/1.73m2 Mildly decreased* 60 - 89 mL/min/1.73m2 Mildly to moderately decreased 45 - 59 mL/min/1.73m2 Moderately to severely decreased 30 - 44 mL/min/1.73m2 Severely decreased 15 - 29 mL/min/1.73m2 Kidney Failure < 15 mL/min/1.73m2 *Relative to young adult level Estimated glomerular filtration rate is determined by the 2020 CKD-EPI equation recommended by the National Kidney Foundation (A Unifying Approach to GFR Estimation: Recommendations of the NKF-ASK Task Force on Reassessing the Inclusion of Race in Diagnosing Kidney Disease, JASN 202). The CKD-EPI equation should not be used for patients with unstable renal function and has not been validated in children and those over 70. Current interpretive data was last reviewed 2021. Blood 01/11/2025 9:49 PM CART PUSHER 01/11/2025 10:04 PM CART PUSHER Melida Asher NP LAB BLOOD ORDERABL ES Final Result [facility] [place] [address] * (ABNORMAL) CBC without differential (01/11/2025 9:49 PM CART PUSHER) WBC 8.6 3.8 - 9.9 K/cumm Hgb 8.3(L) 11.9 - 15.5 g/dL [facility] Hct 25.5(L) 35.6 - 45.5 % [facility] Plt 273 150 - 400 K/cumm [facility] MPV 10.0 9.1 - 12.3 fL [facility] RBC 3.14(L) 3.90 - 5.20 M/cumm [facility] MCV 81.2(L) 81.3 - 96.4 fL [facility] MCH 26.4(L) 27.1 - 33.3 pg [facility] MCHC 32.5 32.3 - 35.7 g/dL [facility] RDW CV 13.2 11.1 - 14.9 % [facility] RDW SD 38.3 35.7 - 48.1 fL [facility] NRBC abs 0.00 0.00 - 0.01 K/cumm [facility] Blood 01/11/2025 9:49 PM CART PUSHER 01/11/2025 10:05 PM CART PUSHER Melida Asher NP LAB BLOOD ORDERABL ES Final Result Performing Organization Address City/[facility] [place] [address] * Phosphorus (01/11/2025 9:49 PM CART PUSHER) [facility] Phosphorus, pl 4.1 2.3 - 4.5 mg/dL Blood 01/11/2025 9:49 PM CART PUSHER 01/11/2025 10:04 PM CART PUSHER Melida Asher NP LAB BLOOD ORDERABL ES Final Result Performing Organization Address [facility] Co de Phone Number [facility] [place] [address] * Magnesium (01/11/2025 9:49 PM CART PUSHER) [facility] Magnesium 1.8 1.4 - 2.5 mg/dL Blood 01/11/2025 9:49 PM CART PUSHER 01/11/2025 10:04 PM CART PUSHER Melida Asher NP LAB BLOOD ORDERABL ES Final Result Performing Organization Address [facility] Co de Phone Number [facility] [place] [address] * (ABNORMAL) Basic metabolic panel (01/11/2025 9:49 PM CART PUSHER) Pathologist [facility] Sodium 138 135 - 145 mmol/L Potassium, pl 4.1 3.3 - 4.9 mmol/L [facility] Chloride 102 97 - 110 mmol/L [facility] CO2 25 22 - 32 mmol/L [facility] Anion gap 11 2 - 15 mmol/L [facility] BUN 21 6 - 25 mg/dL [facility] Creatinine 1.55(H) 0.60 - 1.10 mg/dL [facility] Glucose 180 70 - 199 mg/dL [facility] Comment: Interpretive Data Fasting glucose >/= 126 mg/dl is diagnostic for diabetes. Fasting is defined as no caloric intake for at least 8 hours. Fasting glucose between 100 mg/dl to 125 mg/dl is diagnostic of prediabetes. In a patient with classic symptoms of hyperglycemia or hyperglycemic crisis, a random glucose >/= 200 mg/dl is diagnostic for diabetes. In the absence of unequivocal hyperglycemia, results should be confirmed by repeat testing. The classification and Diagnosis of Diabetes Diabetes Care 2021; 46: S19-S40. Current interpretive data was last revised 2022. Calcium 8.8 8.5 - 10.3 mg/dL [facility] Blood 01/11/2025 9:49 PM CART PUSHER 01/11/2025 10:04 PM CART PUSHER Melida Asher TELEPHONE STATION INSTALLER LAB BLOOD ORDERABL ES Final Result Performing Organization Address [facility]/ZIP Co de Phone Number [facility] [place] [employer] [place] [address] * (ABNORMAL) POCT glucose (01/11/2025 8:43 PM CART PUSHER) Glucose, POC 223(H) 70 - 199 mg/dL Comment:Glu2: RN/MD Notified Glucose comment 1 Glu2: RN/MD Notified [facility] Blood 01/11/2025 8:43 PM CART PUSHER 01/11/2025 8:43 PM CART PUSHER us Bethany Laurent DO LAB POCT ORDERABLES - DEVICE Final Result [facility] [place] [place] [address] * POCT glucose (01/11/2025 6:46 PM CART PUSHER) Glucose, POC 155 70 - 199 mg/dL Blood 01/11/2025 6:46 PM CART PUSHER 01/11/2025 6:46 PM CART PUSHER Bethany Laurent DO LAB POCT ORDERABLES - DEVICE Final Result Performing Organization Address [facility]/ZIP Co de Phone Number DARINEL [facility] [place] [address] * Critical Care (01/11/2025 2:33 PM CART PUSHER) Narrative Rachel Frey MD - 01/11/2025 2:33 PM CART PUSHER Rachel Frey MD 01/12/2025 3:29 PM Critical Care Performed by: Melida Asher NP Authorized by: Melida Asher NP CRITICAL CARE: Team: SICU BLUE Shift: AM Level of Billing: Subsequent Hospital Visit Level 3 My time spent with this patient was 60 minutes: Critical Provider Statement: I have seen and examined the patient on this day of service. I have reviewed and confirmed the history, physical exam, laboratory, and radiographic data as documented in the ICU note. I have reviewed and discussed my treatment plan with the patient's team and other medical/recruitment consultant staff. This time was in addition to and separate from care provided by other practitioners on this day of service. Result [facility] Melida Asher TELEPHONE STATION INSTALLER IN CLINIC/BEDSIDE ORDERABLES Final Result * (ABNORMAL) POCT glucose (01/11/2025 11:42 AM CART PUSHER) Glucose, POC 201(H) 70 - 199 mg/dL Blood 01/11/2025 11:4 2 AM CART PUSHER 01/11/2025 11:42 AM CART PUSHER Bethany Laurent DO LAB POCT ORDERABLES - DEVICE Final Result Performing Organization Address [facility] Co de Phone Number DARINEL CUBA [facility] [place] [address] * POCT glucose (01/11/2025 6:54 AM CART PUSHER) Glucose, POC 163 70 - 199 mg/dL Blood 01/11/2025 6:54 AM CART PUSHER 01/11/2025 6:54 AM CART PUSHER [facility] POCT ORDERABLES - DEVICE Final Result Performing Organization Address [facility] de Phone Number [facility] [place] [address] * POCT glucose (01/11/2025 3:02 AM CART PUSHER) Pathologist [facility] Glucose, POC 150 70 - 199 mg/dL Blood 01/11/2025 3:02 AM CART PUSHER 01/11/2025 3:02 AM CART PUSHER [facility] POCT ORDERABLES - DEVICE Final Result Performing Organization Address [facility] Phone Number [facility] [place] [employer] [place] [address] * POCT glucose (01/10/2025 11:09 PM CART PUSHER) [facility] Glucose, POC 135 70 - 199 mg/dL Blood 01/10/2025 11:0 9 PM CART PUSHER 01/10/2025 11:09 PM CART PUSHER Result [facility] POCT ORDERABLES - DEVICE Final Result Performing Organization Address [facility] de Phone Number [facility] [place] [employer] [place] [address] * (ABNORMAL) eGFR (01/10/2025 8:56 PM CART PUSHER) [facility] eGFR 34(L) >=60 mL/min/1. 73 m2 Comment: Interpretive Data Reference Interval Normal >/= 90 mL/min/1.73m2 Mildly decreased* 60 - 89 mL/min/1.73m2 Mildly to moderately decreased 45 - 59 mL/min/1.73m2 Moderately to severely decreased 30 - 44 mL/min/1.73m2 Severely decreased 15 - 29 mL/min/1.73m2 Kidney Failure < 15 mL/min/1.73m2 *Relative to young adult level Estimated glomerular filtration rate is determined by the 2020 CKD-EPI equation recommended by the National Kidney Foundation (A Unifying Approach to GFR Estimation: Recommendations of the NKF-ASK Task Force on Reassessing the Inclusion of Race in Diagnosing Kidney Disease, JASN 202). The CKD-EPI equation should not be used for patients with unstable renal function and has not been validated in children and those over 70. Current interpretive data was last reviewed 2021. Blood 01/10/2025 8:56 PM CART PUSHER 01/10/2025 9:27 PM CART PUSHER us Melida Asher NP LAB BLOOD ORDERABL ES Final Result [facility] [place] [address] * (ABNORMAL) CBC without differential (01/10/2025 8:56 PM CART PUSHER) WBC 8.8 3.8 - 9.9 K/cumm Hgb 8.9(L) 11.9 - 15.5 g/dL [facility] Hct 26.7(L) 35.6 - 45.5 % [facility] Plt 249 150 - 400 K/cumm [facility] MPV 10.2 9.1 - 12.3 fL [facility] RBC 3.31(L) 3.90 - 5.20 M/cumm [facility] MCV 80.7(L) 81.3 - 96.4 fL [facility] MCH 26.9(L) 27.1 - 33.3 pg [facility] MCHC 33.3 32.3 - 35.7 g/dL [facility] RDW CV 13.3 11.1 - 14.9 % [facility] RDW SD 38.7 35.7 - 48.1 fL [facility] NRBC abs 0.00 0.00 - 0.01 K/cumm [facility] Blood 01/10/2025 8:56 PM CART PUSHER 01/10/2025 9:28 PM CART PUSHER Melida Asher NP LAB BLOOD ORDERABL ES Final Result Performing Organization Address [facility] de Phone Number [facility] [place] [address] * Phosphorus (01/10/2025 8:56 PM CART PUSHER) [facility] Phosphorus, pl 3.6 2.3 - 4.5 mg/dL Blood 01/10/2025 8:56 PM CART PUSHER 01/10/2025 9:27 PM CART PUSHER Melida Asher NP LAB BLOOD ORDERABL ES Final Result Performing Organization Address [facility] de Phone Number [facility] [place] [address] * Magnesium (01/10/2025 8:56 PM CART PUSHER) [facility] Magnesium 1.7 1.4 - 2.5 mg/dL Blood 01/10/2025 8:56 PM CART PUSHER 01/10/2025 9:27 PM CART PUSHER Melida Asher TELEPHONE STATION INSTALLER LAB BLOOD ORDERABL ES Final Result Performing Organization Address [facility] [place] [address] * (ABNORMAL) Basic metabolic panel (01/10/2025 8:56 PM CART PUSHER) [facility] Sodium 140 135 - 145 mmol/L Potassium, pl 4.3 3.3 - 4.9 mmol/L [facility] Chloride 105 97 - 110 mmol/L [facility] CO2 21(L) 22 - 32 mmol/L [facility] Anion gap 14 2 - 15 mmol/L [facility] BUN 21 6 - 25 mg/dL [facility] Creatinine 1.63(H) 0.60 - 1.10 mg/dL [facility] Glucose 124 70 - 199 mg/dL [facility] Comment: Interpretive Data Fasting glucose >/= 126 mg/dl is diagnostic for diabetes. Fasting is defined as no caloric intake for at least 8 hours. Fasting glucose between 100 mg/dl to 125 mg/dl is diagnostic of prediabetes. In a patient with classic symptoms of hyperglycemia or hyperglycemic crisis, a random glucose >/= 200 mg/dl is diagnostic for diabetes. In the absence of unequivocal hyperglycemia, results should be confirmed by repeat testing. The classification and Diagnosis of Diabetes Diabetes Care 2021; 46: S19-S40. Current interpretive data was last revised 2022. Calcium 9.0 8.5 - 10.3 mg/dL [facility] Blood 01/10/2025 8:56 PM CART PUSHER 01/10/2025 9:27 PM CART PUSHER Melida Asher TELEPHONE STATION INSTALLER LAB BLOOD ORDERABL ES Final Result [facility] [place] [place] [address] * POCT glucose (01/10/2025 7:00 PM CART PUSHER) [facility] Signature Glucose, POC 151 70 - 199 mg/dL Blood 01/10/2025 7:00 PM CART PUSHER 01/10/2025 7:00 PM CART PUSHER Bethany Laurent DO LAB POCT ORDERABLES - DEVICE Final Result [facility] [place] [address] * Critical Care (01/10/2025 6:00 PM CART PUSHER) Narrative Gautam Willard MD - 01/10/2025 6:00 PM CART PUSHER Gautam Willard MD 01/11/2025 6:19 AM Critical Care Performed by: Latricia Reed PA Authorized by: Latricia Reed PA CRITICAL CARE: Team: SICU BLUE Shift: PM Level of Billing: Critical Care My time spent with this patient was 60 minutes: Critical Provider Statement: I have seen and examined the patient on this day of service. I have reviewed and confirmed the history, physical exam, laboratory and radiologic data as documented in the signed ICU note. I have reviewed and discussed my treatment plan with the ICU team and other medical/recruitment consultant staff, making frequent assessments and decisions regarding this patient's complex medical care. Critical Care time was exclusive of time spent performing separately billed procedures, treating other patients, and teaching. This time was in addition to and separate from critical care provided by other practitioners in my group on this day of service. Critical Care was necessary to treat or prevent imminent or life-threatening deterioration of the following conditions: I spent time reviewing and interpreting data from bedside monitors, laboratory results, and imaging, I spent time discussing the management of this critically ill patient with consultants and the medical staff and I spent time documenting in the medical record us Latricia RIGGINS IN CLINIC/BEDSIDE JAYNE SPANGLER Final Result * POCT glucose (01/10/2025 3:00 PM CART PUSHER) Glucose, POC 136 70 - 199 mg/dL Blood 01/10/2025 3:00 PM CART PUSHER 01/10/2025 3:00 PM CART PUSHER us Bethany Laurent DO LAB POCT ORDERABLES - DEVICE Final Result [facility] Department [place] [address] * CT Head WO Contrast (01/10/2025 2:09 PM CART PUSHER) Anatomical Region Laterality Modality Head and Neck N/A Computed Tomogra phy 01/10/2025 3:23 PM CART PUSHER Impressions 01/10/2025 5:52 PM CART PUSHER 1. Stable right cerebral convexity subdural hematoma with unchanged, minimal 3 mm leftward midline shift. 2. Stable right parietotemoporal scalp hematoma. Dictated by: Lisbeth Muñoz MD The radiology attending physician has personally reviewed this study, and had reviewed and/or edited this written report and agrees with it. Electronically signed by: Kody Crowe MD Narrative 01/10/2025 5:52 PM CART PUSHER EXAMINATION: CT head without contrast HISTORY: Fall with subdural hemorrhage, worsening mental status TECHNIQUE: CT of the head was performed with images acquired from skull base to vertex without intravenous contrast. COMPARISON: None Available. FINDINGS: Stable right parietotemporal scalp hematoma. Grossly unchanged size of a right cerebral convexity subdural hematoma measuring up to 9 mm in width. There is local mass effect on the right occipital horn/temporal horn, and unchanged 3 mm leftward midline shift. The youngblood-white matter differentiation is normal. The visualized portions of the orbits are normal. The visualized portions of the mastoids are normal. Frothy contents in the right sphenoid sinus. No fractures are identified. Procedure Note Kody Crowe MD - 01/10/2025 EXAMINATION: CT head without contrast HISTORY: Fall with subdural hemorrhage, worsening mental status TECHNIQUE: CT of the head was performed with images acquired from skull base to vertex without intravenous contrast. COMPARISON: None Available. FINDINGS: Stable right parietotemporal scalp hematoma. Grossly unchanged size of a right cerebral convexity subdural hematoma measuring up to 9 mm in width. There is local mass effect on the right occipital horn/temporal horn, and unchanged 3 mm leftward midline shift. The youngblood-white matter differentiation is normal. The visualized portions of the orbits are normal. The visualized portions of the mastoids are normal. Frothy contents in the right sphenoid sinus. No fractures are identified. IMPRESSION: 1. Stable right cerebral convexity subdural hematoma with unchanged, minimal 3 mm leftward midline shift. 2. Stable right parietotemoporal scalp hematoma. Dictated by: Lisbeth Muñoz MD The radiology attending physician has personally reviewed this study, and had reviewed and/or edited this written report and agrees with it. Electronically signed by: Kody Crowe MD us Melida Asher TELEPHONE STATION INSTALLER IMG CT PROCEDURES Final Result * US Carotids Duplex Bilateral (01/10/2025 11:28 AM CART PUSHER) Anatomical Region Laterality Modality Vascular Bilateral Ultrasound 01/10/2025 9:11 AM CART PUSHER Narrative 01/10/2025 10:30 PM CART PUSHER [facility] - Department of Vascular Surgery, Vascular Laboratory [address] [place] [id number] Carotid Duplex Ultrasound Report Patient Name: NUPUR RAMIREZ R : 1955 (69y 7m) Study Date: 01/10/2025 9:11:08 AM Gender: F Tech: CG Location: [id number] Ref Provider: FARZANA HUDSON Quality: Adequate Order Provider: FARZANA HUDSON PROCEDURES: Carotid Report: Carotid duplex examination of the extracranial arteries was performed using 2D, color and spectral Doppler. INDICATIONS: Syncope. MEASUREMENTS: Right Value Units Left Value Units RT Prox CCA PSV 73 cm/sec LT Prox CCA PSV 54 cm/sec RT Prox CCA EDV 24 cm/sec LT Prox CCA EDV 12 cm/sec RT Distal CCA PSV 88 cm/sec LT Distal CCA PSV 73 cm/sec RT Distal CCA EDV 26 cm/sec LT Distal CCA EDV 18 cm/sec RT Prox ICA PSV 83 cm/sec LT Prox ICA PSV 58 cm/sec RT Prox ICA EDV 34 cm/sec LT Prox ICA EDV 18 cm/sec RT Mid ICA PSV 92 cm/sec LT Mid ICA PSV 76 cm/sec RT Mid ICA EDV 32 cm/sec LT Mid ICA EDV 27 cm/sec RT Distal ICA PSV 93 cm/sec LT Distal ICA PSV 69 cm/sec RT Distal ICA EDV 39 cm/sec LT Distal ICA EDV 30 cm/sec RT ECA Prx PSV 147 cm/sec LT ECA Prx PSV 223 cm/sec RT ICA/CCA 1.05 ratio LT ICA/CCA 1.04 ratio RT VERT PSV 41 cm/sec LT VERT PSV 60 cm/sec FINDINGS: Performing Coal Hiker: Fatimah Swanson RVT, RDMS. Rt Common Carotid Artery: Duplex imaging of the right common carotid artery is within normal limits without evidence of atherosclerotic disease. Rt Internal Carotid Artery: The plaque in the right internal carotid artery appears to be heterogeneous, calcified and irregular. Atherosclerotic changes of the right internal carotid artery without hemodynamically significant Doppler findings. <50% stenosis (APPROACHING 50-69% stenosis by EDV). Rt External Carotid Artery: The right external carotid artery is patent without evidence of atherosclerotic plaque. Rt Vertebral Artery: The right vertebral artery is patent with antegrade flow. Lt Common Carotid Artery: Duplex imaging of the left common carotid artery is within normal limits without evidence of atherosclerotic disease. Lt Internal Carotid Artery: The plaque in the left internal carotid artery appears to be heterogeneous, calcified and irregular. Atherosclerotic changes of the left internal carotid artery without hemodynamically significant Doppler findings. <50% stenosis. Lt External Carotid Artery: Patent left external carotid artery with evidence of atherosclerotic disease present. Lt Vertebral Artery: The left vertebral artery is patent with antegrade flow. Comments: Limited visualization of proximal RCCA due to shadowing from large calcified thyroid nodule. Limited visualization of proximal LCCA due to sling placement. CONCLUSIONS: 1. The right internal carotid artery disease is consistent with a less than 50% stenosis (APPROACHING 50-69% stenosis by EDV). 2. The left internal carotid artery disease is consistent with a less than 50% stenosis. 3. No evidence of hemodynamically significant stenosis in the common carotid artery bilaterally. 4. Normal, antegrade flow is noted in bilateral vertebral arteries. 5. Patent right external carotid artery without evidence of atherosclerotic plaque. 6. Patent left external carotid artery with evidence of atherosclerotic plaque. 7. See above Comments. HISTORY: T2DM (insulin dependent), CKD, HTN, HLD, CML, PVD, seizure disorder (last seizure 11/05/2024). PREVIOUS STUDIES: No previous studies for comparison. DISCLAIMER: The study images and the final report will be retained in the patient chart by the Vascular Laboratory for the legally required time period. This chart constitutes the legal record of any testing performed. ATTESTATION: I have reviewed and interpreted the pertinent images and measurements of this study. I attest to the conclusions in the final report that is provided above. Electronically Signed By: Leland Spence MD FACS 01/10/2025 9:33:12 PM CART PUSHER Procedure Note Leland Spence MD - 01/10/2025 [facility] - Department of Vascular Surgery,Vascular Laboratory [address] [place] [address] Carotid Duplex Ultrasound Report Patient Name: NUPUR RAMIREZ R : 1955 (69y 7m) Study Date: 01/10/2025 9:11:08 AM Gender: F Tech: Location: [id number] Ref Provider: FARZANA HUDSON Quality: Adequate Order Provider: FARZANA HUDSON PROCEDURES: Carotid Report: Carotid duplex examination of the extracranial arterieswas performed using 2D, color and spectral Doppler. INDICATIONS: Syncope. MEASUREMENTS: Right Value Units Left Value Units RT Prox CCA PSV 73 cm/sec LT Prox CCA PSV 54 cm/sec RT Prox CCA EDV 24 cm/sec LT Prox CCA EDV 12 cm/sec RT Distal CCA PSV 88 cm/sec LT Distal CCA PSV 73 cm/sec RT Distal CCA EDV 26 cm/sec LT Distal CCA EDV 18 cm/sec RT Prox ICA PSV 83 cm/sec LT Prox ICA PSV 58 cm/sec RT Prox ICA EDV 34 cm/sec LT Prox ICA EDV 18 cm/sec RT Mid ICA PSV 92 cm/sec LT Mid ICA PSV 76 cm/sec RT Mid ICA EDV 32 cm/sec LT Mid ICA EDV 27 cm/sec RT Distal ICA PSV 93 cm/sec LT Distal ICA PSV 69 cm/sec RT Distal ICA EDV 39 cm/sec LT Distal ICA EDV 30 cm/sec RT ECA Prx PSV 147 cm/sec LT ECA Prx PSV 223 cm/sec RT ICA/CCA 1.05 ratio LT ICA/CCA 1.04 ratio RT VERT PSV 41 cm/sec LT VERT PSV 60 cm/sec FINDINGS: Performing Coal Hiker: Fatimah RALPHT, ALIRIO. Rt Common Carotid Artery: Duplex imaging of the right common carotidartery is within normal limits without evidence of atherosclerotic disease. Rt Internal Carotid Artery: The plaque in the right internal carotidartery appears to be heterogeneous, calcified and irregular. Atherosclerotic changes of theright internal carotid artery without hemodynamically significant Doppler findings. <50%stenosis (APPROACHING 50-69% stenosis by EDV). Rt External Carotid Artery: The right external carotid artery is patentwithout evidence of atherosclerotic plaque. Rt Vertebral Artery: The right vertebral artery is patent with antegradeflow. Lt Common Carotid Artery: Duplex imaging of the left common carotid arteryis within normal limits without evidence of atherosclerotic disease. Lt Internal Carotid Artery: The plaque in the left internal carotid arteryappears to be heterogeneous, calcified and irregular. Atherosclerotic changes of theleft internal carotid artery without hemodynamically significant Doppler findings. <50%stenosis. Lt External Carotid Artery: Patent left external carotid artery withevidence of atherosclerotic disease present. Lt Vertebral Artery: The left vertebral artery is patent with antegradeflow. Comments: Limited visualization of proximal RCCA due to shadowing fromlarge calcified thyroid nodule. Limited visualization of proximal LCCA due to sling placement. CONCLUSIONS: 1. The right internal carotid artery disease is consistent with a lessthan 50% stenosis (APPROACHING 50-69% stenosis by EDV). 2. The left internal carotid artery disease is consistent with a less than50% stenosis. 3. No evidence of hemodynamically significant stenosis in the commoncarotid artery bilaterally. 4. Normal, antegrade flow is noted in bilateral vertebral arteries. 5. Patent right external carotid artery without evidence ofatherosclerotic plaque. 6. Patent left external carotid artery with evidence of atheroscleroticplaque. 7. See above Comments. HISTORY: T2DM (insulin dependent), CKD, HTN, HLD, CML, PVD, seizure disorder (lastseizure 11/05/2024). PREVIOUS STUDIES: No previous studies for comparison. DISCLAIMER: The study images and the final report will be retained in the patientchart by the Vascular Laboratory for the legally required time period. This chartconstitutes the legal record of any testing performed. ATTESTATION: I have reviewed and interpreted the pertinent images and measurements ofthis study. I attest to the conclusions in the final report that is provided above. Electronically Signed By: Leland Spence MD FACS 01/10/2025 9:33:12 PM CART PUSHER us Farzana Hudson NP IMG US PROCEDURES Final Resul t * POCT glucose (01/10/2025 11:02 AM CART PUSHER) Glucose, POC 135 70 - 199 mg/dL Blood 01/10/2025 11:0 2 AM CART PUSHER 01/10/2025 11:02 AM CART PUSHER us Bethany Laurent DO LAB POCT ORDERABLES - DEVICE Final Result [facility] [place] [address] * TRANSTHORACIC ECHO (TTE) COMPLETE W DOPPLER/CF W CONTRAST (01/10/2025 8:25 AM CART PUSHER) Anatomical Region Laterality Modality Ultrasound 01/10/2025 7:48 AM CART PUSHER Narrative 01/10/2025 8:38 AM CART PUSHER [facility] [place] [address] Transthoracic Echocardiographic Report Patient Name: NUPUR RAMIREZ R : 1955 (69y 7m) Gender: F Study Date: 01/10/2025 07:48:16 AM Ht(Inch): 65 Wt(Lb): 149.91 BSA: 1.77 Coal Hiker: Re[facility] Varghese [facility] Location: [id number] Order Provider: FARZANA HUDSON Heart Rate: 89 BMI: 24.94 BP: 100 / 82 Quality: The study images were of technically adequate quality. Ref Provider: FARZANA HUDSON PROCEDURES: Echocardiographic Report: [id number]) Transthoracic complete echo with strain imaging and contrast, 2D, spectral and tissue Doppler, color flow Doppler, M-mode. Contrast: Contrast Enhancement was Employed: After initial imaging due to sub- optimal quality related to co-morbidity defined by patient's body habitus and used Perflutren contrast because 2 of 16 LV wall segments in any view not visualized, using the volume necessary to obtain adequate images. 0.4 ml Optison Administered, (2.6 ml wasted). INDICATIONS: Syncope. FINDINGS: Left Ventricle: Normal left ventricular size based on volume index. Eccentric LV hypertrophy. Normal left ventricular systolic function. The Ejection Fraction (Ghosh's) is measured at 57 %. Left ventricular diastolic parameters are consistent with Grade I diastolic dysfunction (normal LA pressure). The LV global strain is: -13.4 %. Right Ventricle: Normal right ventricular size. Normal right ventricular systolic function. RV GLS~-16% (minimally decreased). Left Atrium: The left atrium is normal in size. Right Atrium: The right atrium is normal in size. Mitral Valve: Normal mitral valve leaflet structure. No mitral regurgitation seen. Aortic Valve: No aortic valve stenosis. The mean transaortic gradient is 4.3 mmHg. The aortic valve area by the continuity equation (using VTI) is 2.39 cm2. Aortic valve dimensionless index 0.76. Tricuspid Valve: The tricuspid valve demonstrates normal leaflet structure. There is mild tricuspid regurgitation. The estimated pulmonary artery systolic pressure is 35 mmHg. Normal estimated pulmonary artery systolic pressure. Pulmonic Valve: The pulmonic valve demonstrates normal leaflet structure. No evidence of pulmonic regurgitation. Pericardium: Normal pericardium without evidence of pericardial effusion. Aorta: Normal aortic root. The aortic root is normal in size. The aortic root is normal in size when indexed. The ascending aorta is normal in size when indexed. IVC: IVC is normal in size. CONCLUSIONS: 1. Eccentric LV hypertrophy. Normal left ventricular systolic function. The Ejection Fraction (Ghosh's) is measured at 57 %. Left ventricular diastolic parameters are consistent with Grade I diastolic dysfunction (normal LA pressure). 2. Normal right ventricular size. Normal right ventricular systolic function. RV GLS~-16% (minimally decreased). MEASUREMENTS: 2D/MM Value Range Doppler Value Range LVIDd 2D 4.51 cm [ 3.80 - 5.20 ] AV Peak Charlie 1.26 m/s [ 1.00 - 1.70 ] LVIDs 2D 3.06 cm [ 2.20 - 3.50 ] AV Peak PG 6.35 IVSd 2D 1.40 cm [ 0.60 - 0.90 ] AV Mean PG 4.30 mmHg LVPWd 2D 0.91 cm [ 0.60 - 0.90 ] AV VTI 23.53 cm LV Thickness Ratio 1.54 LVOT Peak Charlie 0.97 m/s [ 0.70 - 1.10 ] LV FS 2D 32.34 % [ 27.00 - 45.00 ] LVOT Peak PG 3.76 LV Mass 2D 191.14 g LVOT Mean PG 2.08 mmHg LV Mass Index 2D 107.99 g/m2 LVOT VTI 17.92 cm RWT 0.40 LVOT Diam 2.00 cm EDV Mod BP 79.72 ml [ 46.00 - 106.00 ] BABAK VTI 2.39 cm2 LV EDV Index 45.04 ml/m2 LVOT/AV VTI 0.76 - Dimensionless index (DVI) ESV Mod BP 34.15 ml [ 14.00 - 42.00 ] MV E Peak Charlie 0.82 m/s [ 0.60 - 1.30 ] EF Mod BP 57 % [ 54 - 74 ] MV A Peak Charlie 1.00 m/s [ 1.00 - 1.20 ] LV GLS -13.4 % [ -18.0 - -16.0 ] MV E/A 0.82 ratio [ 0.80 - 1.50 ] LA Length 2C 5.63 cm MV Decel Time 242.56 msec [ 104.00 - 258.00 ] LA Length 4C 5.83 cm Med E` Charlie 5.73 cm/sec [ 8.00 - 15.00 ] LA Volume BP 50.66 ml Lat E` Charlie 8.19 cm/sec [ 10.00 - 15.00 ] LA Volume Index 28.62 ml/m2 [ 16.00 - 34.00 ] Average E/E` 11.78 RV Base Dimen 2D 3.0 cm [ 2.5 - 4.2 ] RV S` 14.83 cm/sec TAPSE 2.13 cm [ 1.71 - 5.00 ] PV Peak Charlie 1.05 m/s [ 0.40 - 0.80 ] RA Volume 34.37 ml PV Peak PG 4.41 RA Volume Index 19.42 ml/m2 AoR Diam 2D 3.09 cm [ 2.70 - 3.70 ] Ao Root Index 1.75 cm/m2 [ 1.00 - 2.00 ] Asc Ao Diam 2D 2.94 cm Asc Ao Index 1.66 cm/m2 - ATTESTATION: I have reviewed and interpreted the pertinent images and measurements of this study. I attest to the conclusions in the final report that is provided above. DISCLAIMER: The study images and the final report will be retained in the patient chart by the Echo Laboratory for the legally required time period. This chart constitutes the legal record of any testing performed. Electronically Signed By: Darinel Franco M.D. 01/10/2025 8:37:57 AM CART PUSHER Electronically Signed By: Darinel Franco M.D. 01/10/2025 8:37:57 AM CART PUSHER Procedure Note Darinel Franco MD PhD - 01/10/2025 [facility] [place] [address] Transthoracic Echocardiographic Report Patient Name: NUPUR RAMIREZ R : 1955 (69y 7m) Gender: F Study Date: 01/10/2025 07:48:16 AM Ht(Inch): 65 Wt(Lb): 149.91 BSA: 1.77 Coal Hiker: Reina Varghese [facility] Location: [id number] OrderProvider: FARZANA HUDSON Heart Rate: 89 BMI: 24.94 BP: 100 / 82 Quality: The study images were oftechnically adequate quality. Ref Provider: FARZANA HUDSON PROCEDURES: Echocardiographic Report: [id number]) Transthoracic complete echo withstrain imaging and contrast, 2D, spectral and tissue Doppler, color flow Doppler,M-mode. Contrast: Contrast Enhancement was Employed: After initial imaging due tosub- optimal quality related to co-morbidity defined by patient's body habitus and usedPerflutren contrast because 2 of 16 LV wall segments in any view not visualized,using the volume necessary to obtain adequate images. 0.4 ml Optison Administered, (2.6 mlwasted). INDICATIONS: Syncope. FINDINGS: Left Ventricle: Normal left ventricular size based on volume index.Eccentric LV hypertrophy. Normal left ventricular systolic function. The EjectionFraction (Ghosh's) is measured at 57 %. Left ventricular diastolic parameters are consistentwith Grade I diastolic dysfunction (normal LA pressure). The LV global strain is: -13.4%. Right Ventricle: Normal right ventricular size. Normal right ventricularsystolic function. RV GLS~-16% (minimally decreased). Left Atrium: The left atrium is normal in size. Right Atrium: The right atrium is normal in size. Mitral Valve: Normal mitral valve leaflet structure. No mitralregurgitation seen. Aortic Valve: No aortic valve stenosis. The mean transaortic gradient is4.3 mmHg. The aortic valve area by the continuity equation (using VTI) is 2.39 cm2.Aortic valve dimensionless index 0.76. Tricuspid Valve: The tricuspid valve demonstrates normal leafletstructure. There is mild tricuspid regurgitation. The estimated pulmonary artery systolic pressureis 35 mmHg. Normal estimated pulmonary artery systolic pressure. Pulmonic Valve: The pulmonic valve demonstrates normal leaflet structure.No evidence of pulmonic regurgitation. Pericardium: Normal pericardium without evidence of pericardialeffusion. Aorta: Normal aortic root. The aortic root is normal in size. The aorticroot is normal in size when indexed. The ascending aorta is normal in size whenindexed. IVC: IVC is normal in size. CONCLUSIONS: 1. Eccentric LV hypertrophy. Normal left ventricular systolic function.The Ejection Fraction (Ghosh's) is measured at 57 %. Left ventricular diastolicparameters are consistent with Grade I diastolic dysfunction (normal LA pressure). 2. Normal right ventricular size. Normal right ventricular systolicfunction. RV GLS~-16% (minimally decreased). MEASUREMENTS: 2D/MM Value Range DopplerValue Range LVIDd 2D 4.51 cm [ 3.80 - 5.20 ] AV Peak Vel1.26 m/s [ 1.00 - 1.70 ] LVIDs 2D 3.06 cm [ 2.20 - 3.50 ] AV Peak PG6.35 IVSd 2D 1.40 cm [ 0.60 - 0.90 ] AV Mean PG4.30 mmHg LVPWd 2D 0.91 cm [ 0.60 - 0.90 ] AV VTI23.53 cm LV Thickness Ratio 1.54 LVOT Peak Vel0.97 m/s [ 0.70 - 1.10 ] LV FS 2D 32.34 % [ 27.00 - 45.00 ] LVOT Peak PG3.76 LV Mass 2D 191.14 g LVOT Mean PG2.08 mmHg LV Mass Index 2D 107.99 g/m2 LVOT VTI17.92 cm RWT 0.40 LVOT Diam2.00 cm EDV Mod BP 79.72 ml [ 46.00 - 106.00 ] BABAK VTI2.39 cm2 LV EDV Index 45.04 ml/m2 LVOT/AV VTI0.76 - Dimensionless index (DVI) ESV Mod BP 34.15 ml [ 14.00 - 42.00 ] MV E Peak Vel0.82 m/s [ 0.60 - 1.30 ] EF Mod BP 57 % [ 54 - 74 ] MV A Peak Vel1.00 m/s [ 1.00 - 1.20 ] LV GLS -13.4 % [ -18.0 - -16.0 ] MV E/A0.82 ratio [ 0.80 - 1.50 ] LA Length 2C 5.63 cm MV Decel Xfst962.56 msec [ 104.00 - 258.00 ] LA Length 4C 5.83 cm Med E` Vel5.73 cm/sec [ 8.00 - 15.00 ] LA Volume BP 50.66 ml Lat E` Vel8.19 cm/sec [ 10.00 - 15.00 ] LA Volume Index 28.62 ml/m2 [ 16.00 - 34.00 ] Average E/E`11.78 RV Base Dimen 2D 3.0 cm [ 2.5 - 4.2 ] RV S`14.83 cm/sec TAPSE 2.13 cm [ 1.71 - 5.00 ] PV Peak Vel1.05 m/s [ 0.40 - 0.80 ] RA Volume 34.37 ml PV Peak PG4.41 RA Volume Index19.42 ml/m2 AoR Diam 2D 3.09 cm [ 2.70 - 3.70 ] Ao Root Index 1.75 cm/m2 [ 1.00 - 2.00 ] Asc Ao Diam 2D2.94 cm Asc Ao Index1.66 cm/m2 - ATTESTATION: I have reviewed and interpreted the pertinent images and measurements ofthis study. I attest to the conclusions in the final report that is provided above. DISCLAIMER: The study images and the final report will be retained in the patientchart by the Echo Laboratory for the legally required time period. This chart constitutesthe legal record of any testing performed. Electronically Signed By: Darinel Franco M.D. 01/10/2025 8:37:57 AM CART PUSHER Electronically Signed By: Darinel Franco M.D. 01/10/2025 8:37:57 AM CART PUSHER us Farzana Hudson NP CV ECHO PROCEDURES Final Resu lt * Critical Care (01/10/2025 8:10 AM CART PUSHER) Narrative Beverly Mayo MD - 01/10/2025 8:10 AM CART PUSHER Beverly Mayo MD 01/10/2025 6:04 PM Critical Care Performed by: Melida Asher NP Authorized by: Melida Asher NP CRITICAL CARE: Team: SICU BLUE Shift: AM Level of Billing: Critical Care My time spent with this patient was 90 minutes: Critical Provider Statement: I have seen and examined the patient on this day of service. I have reviewed and confirmed the history, physical exam, laboratory and radiologic data as documented in the signed ICU note. I have reviewed and discussed my treatment plan with the ICU team and other medical/recruitment consultant staff, making frequent assessments and decisions regarding this patient's complex medical care. Critical Care time was exclusive of time spent performing separately billed procedures, treating other patients, and teaching. This time was in addition to and separate from critical care provided by other practitioners in my group on this day of service. Critical Care was necessary to treat or prevent imminent or life-threatening deterioration of the following conditions: I spent time reviewing and interpreting data from bedside monitors, laboratory results, and imaging, I spent time discussing the management of this critically ill patient with consultants and the medical staff and I spent time documenting in the medical record Melida Asher NP IN CLINIC/BEDSIDE ORDERABLES Final Result * POCT glucose (01/10/2025 6:53 AM CART PUSHER) Glucose, POC 148 70 - 199 mg/dL Blood 01/10/2025 6:53 AM CART PUSHER 01/10/2025 6:53 AM CART PUSHER Bethany Masha Imitixkorey DO LAB POCT ORDERABLES - DEVICE Final Result Performing Organization Address City/[facility]/ZIP Co de Phone Number [facility] [place] [employer] [place] [address] * POCT glucose (01/10/2025 2:59 AM CART PUSHER) Glucose, POC 117 70 - 199 mg/dL Blood 01/10/2025 2:59 AM CART PUSHER 01/10/2025 2:59 AM CART PUSHER Result [facility] Bethany Masha Millerkorey DO LAB POCT ORDERABLES - DEVICE Final Result Performing Organization Address [facility] Co de Phone Number [facility] [place] [employer] [place] [address] * POCT glucose (01/09/2025 11:08 PM CART PUSHER) Glucose, POC 107 70 - 199 mg/dL Blood 01/09/2025 11:0 8 PM CART PUSHER 01/09/2025 11:08 PM CART PUSHER Bethany Masha Millerpatdana DO LAB POCT ORDERABLES - DEVICE Final Result Performing Organization Address [facility] Co de Phone Number [facility] [place] [address] * POCT glucose (01/09/2025 7:25 PM CART PUSHER) [facility] Glucose, POC 93 70 - 199 mg/dL Blood 01/09/2025 7:25 PM CART PUSHER 01/09/2025 7:25 PM CART PUSHER us Bethany Laurent DO LAB POCT ORDERABLES - DEVICE Final Result Performing Organization Address City/[facility]/ZIP Co de Phone Number [facility] [place] [address] * (ABNORMAL) eGFR (01/09/2025 6:30 PM CART PUSHER) [facility] eGFR 40(L) >=60 mL/min/1. 73 m2 Comment: Interpretive Data Reference Interval Normal >/= 90 mL/min/1.73m2 Mildly decreased* 60 - 89 mL/min/1.73m2 Mildly to moderately decreased 45 - 59 mL/min/1.73m2 Moderately to severely decreased 30 - 44 mL/min/1.73m2 Severely decreased 15 - 29 mL/min/1.73m2 Kidney Failure < 15 mL/min/1.73m2 *Relative to young adult level Estimated glomerular filtration rate is determined by the 2020 CKD-EPI equation recommended by the National Kidney Foundation (A Unifying Approach to GFR Estimation: Recommendations of the NKF-ASK Task Force on Reassessing the Inclusion of Race in Diagnosing Kidney Disease, JASN 2020). The CKD-EPI equation should not be used for patients with unstable renal function and has not been validated in children and those over 70. Current interpretive data was last reviewed 2021. Blood 01/09/2025 6:30 PM CART PUSHER 01/09/2025 6:38 PM CART PUSHER us Farzana Hudson TELEPHONE STATION INSTALLER LAB BLOOD ORDERABLES Final Re sult Performing Organization Address City/[facility]/ZIP Co de Phone Number DARINEL [facility] [place] [address] * Lactate, whole blood (01/09/2025 6:30 PM CART PUSHER) [facility] Lactate, bld 1.3 0.7 - 2.0 mmol/L Blood 01/09/2025 6:30 PM CART PUSHER 01/09/2025 6:35 PM CART PUSHER Farzana Hudson TELEPHONE STATION INSTALLER LAB BLOOD ORDERABLES Final Re sult Performing Organization Address City/[facility]/ZIP Co de Phone Number [facility] [place] [address] * (ABNORMAL) CBC without differential (01/09/2025 6:30 PM CART PUSHER) [facility] WBC 9.7 3.8 - 9.9 K/cumm Hgb 9.4(L) 11.9 - 15.5 g/dL [facility] Hct 29.6(L) 35.6 - 45.5 % [facility] Plt 300 150 - 400 K/cumm [facility] MPV 10.0 9.1 - 12.3 fL [facility] RBC 3.56(L) 3.90 - 5.20 M/cumm [facility] MCV 83.1 81.3 - 96.4 fL [facility] MCH 26.4(L) 27.1 - 33.3 pg [facility] MCHC 31.8(L) 32.3 - 35.7 g/dL [facility] RDW CV 13.6 11.1 - 14.9 % [facility] RDW SD 41.1 35.7 - 48.1 fL [facility] NRBC abs 0.00 0.00 - 0.01 K/cumm [facility] Blood 01/09/2025 6:30 PM CART PUSHER 01/09/2025 6:38 PM CART PUSHER Farzana Hudson TELEPHONE STATION INSTALLER LAB BLOOD ORDERABLES Final Re sult Performing Organization Address City/[facility]/ZIP Co de Phone Number [facility] [place] [address] * (ABNORMAL) Phosphorus (01/09/2025 6:30 PM CART PUSHER) [facility] Phosphorus, pl 5.2(H) 2.3 - 4.5 mg/dL Blood 01/09/2025 6:30 PM CART PUSHER 01/09/2025 6:38 PM CART PUSHER Farzana Hudson TELEPHONE STATION INSTALLER LAB BLOOD ORDERABLES Final Re sult Performing Organization Address [facility] Co de Phone Number [facility] [place] [address] * Magnesium (01/09/2025 6:30 PM CART PUSHER) [facility] Magnesium 1.8 1.4 - 2.5 mg/dL Blood 01/09/2025 6:30 PM CART PUSHER 01/09/2025 6:38 PM CART PUSHER Farzana Hudson TELEPHONE STATION INSTALLER LAB BLOOD ORDERABLES Final Re sult Performing Organization Address [facility] de Phone Number [facility] Department [place] [address] * (ABNORMAL) Comprehensive metabolic panel (01/09/2025 6:30 PM CART PUSHER) [facility] Sodium 140 135 - 145 mmol/L Potassium, pl 4.5 3.3 - 4.9 mmol/L [facility] Comment:Hemolyzed; Potassium value may be falsely elevated by as much as 0.3-0.5 mmol/L. Suggest redraw and reanalysis. Chloride 107 97 - 110 mmol/L [facility] CO2 23 22 - 32 mmol/L [facility] Anion gap 10 2 - 15 mmol/L [facility] BUN 16 6 - 25 mg/dL [facility] Creatinine 1.41(H) 0.60 - 1.10 mg/dL [facility] Glucose 101 70 - 199 mg/dL [facility] Comment: Interpretive Data Fasting glucose >/= 126 mg/dl is diagnostic for diabetes. Fasting is defined as no caloric intake for at least 8 hours. Fasting glucose between 100 mg/dl to 125 mg/dl is diagnostic of prediabetes. In a patient with classic symptoms of hyperglycemia or hyperglycemic crisis, a random glucose >/= 200 mg/dl is diagnostic for diabetes. In the absence of unequivocal hyperglycemia, results should be confirmed by repeat testing. The classification and Diagnosis of Diabetes Diabetes Care 202; 46: S19-S40. Current interpretive data was last revised 2022. Calcium 8.8 8.5 - 10.3 mg/dL [facility] Bilirubin, total 0.3 0.1 - 1.2 mg/dL [facility] Protein, pl 6.7 6.5 - 8.5 g/dL [facility] Albumin 3.3(L) 3.5 - 5.0 g/dL [facility] Alk phos 125 40 - 130 Units/L [facility] ALT 13 7 - 45 Units/L [facility] AST 26 10 - 45 Units/L [facility] Comment:Hemolyzed; result ma y be falsely elevated Blood 01/09/2025 6:30 PM CART PUSHER 01/09/2025 6:38 PM CART PUSHER us Farzana Hudson TELEPHONE STATION INSTALLER LAB BLOOD ORDERABLES Final Re sult [facility] [place] [place] [address] * POCT glucose (01/09/2025 6:16 PM CART PUSHER) [facility] Signature Glucose, POC 92 70 - 199 mg/dL Blood 01/09/2025 6:16 PM CART PUSHER 01/09/2025 6:16 PM CART PUSHER us Bethany Laurent DO LAB POCT ORDERABLES - DEVICE Final Result [facility] [place] [address] * Critical Care (01/09/2025 6:00 PM CART PUSHER) Narrative Radha Wong MD - 01/09/2025 6:00 PM CART PUSHER Radha Wong MD 01/16/2025 11:34 PM Critical Care Performed by: Latricia Reed PA Authorized by: Latricia Reed PA CRITICAL CARE: Team: SICU BLUE Shift: PM Level of Billing: Critical Care My time spent with this patient was 90 minutes: Critical Provider Statement: I have seen and examined the patient on this day of service. I have reviewed and confirmed the history, physical exam, laboratory and radiologic data as documented in the signed ICU note. I have reviewed and discussed my treatment plan with the ICU team and other medical/recruitment consultant staff, making frequent assessments and decisions regarding this patient's complex medical care. Critical Care time was exclusive of time spent performing separately billed procedures, treating other patients, and teaching. This time was in addition to and separate from critical care provided by other practitioners in my group on this day of service. Critical Care was necessary to treat or prevent imminent or life-threatening deterioration of the following conditions: I spent time reviewing and interpreting data from bedside monitors, laboratory results, and imaging, I spent time discussing the management of this critically ill patient with consultants and the medical staff and I spent time documenting in the medical record Latricia RIGGINS IN CLINIC/BEDSIDE JAYNE SPANGLER Final Result * Direct antiglobulin test (01/09/2025 2:51 PM CART PUSHER) Direct Meeta BS Interpretation Negative Blood 01/09/2025 2:51 PM CART PUSHER 01/09/2025 2:51 PM CART PUSHER Eder Palomo MD LAB BLOOD BANK TEST ORDChauncey RABTUSHAR Final Result [facility] [place] [address] * POCT glucose (01/09/2025 2:26 PM CART PUSHER) Glucose, POC 106 70 - 199 mg/dL Blood 01/09/2025 2:26 PM CART PUSHER 01/09/2025 2:26 PM CART PUSHER Eder Palomo MD LAB POCT ORDERABLES - DE VICE Final Result Performing Organization Address [facility] [place] [address] * Transfusion reaction immediate (01/09/2025 2:24 PM CART PUSHER) Pathologist [facility] Product Unit Number [id number] Type of Product Transfused platelet [facility] Clerical check satisfactory [facility] Visible Serum Icterus No Visible Icterus [facility] Visible Serum Hemoglobin No Visible Hgb [facility] ur hemoglobin Not Performed [facility] Blood 01/09/2025 2:24 PM CART PUSHER 01/09/2025 2:50 PM CART PUSHER Arnoldo Garcia MD LAB BLOOD BANK TEST ORDER ALLAN Final Result Performing Organization Address [facility] Co de Phone Number [facility] [place] [employer] [place] [address] * Transfusion reaction evaluation with specimen collection (01/09/2025 2:24 PM CART PUSHER) [facility] Recommended Product Consider transfusing slowly along with careful monitoring. Recommened Pre Medication Consider premedication with acetaminophen [facility] Final Analysis of Transfusion Reaction Febrile nonhemolytic transfusion reaction [facility] Blood 01/09/2025 2:24 PM CART PUSHER 01/09/2025 2:50 PM CART PUSHER Arnoldo Garcia MD LAB BLOOD BANK TEST ORDER ALLAN Final Result Performing Organization Address City/[facility]/ZIP Co de Phone Number [facility] [place] [address] * Type and screen (01/09/2025 2:24 PM CART PUSHER) Pathologist [facility] Meeta, indirect Negative ABO Rh A Positive [facility] Blood 01/09/2025 2:24 PM CART PUSHER 01/09/2025 2:50 PM CART PUSHER Narrative DARINEL CRESPO - 01/09/2025 3:53 PM CART PUSHER Has the patient had Daratumumab or Isatuximab in the past 6 months?->Unknown us Deep Kamara MD LAB BLOOD BANK TEST ORDERA BLES Final Result D[facility]INEL [facility] [place] [address] * IR Angio Selective Carotid PLANT DIRECTOR Right (01/09/2025 1:27 PM CART PUSHER) Anatomical Region Laterality Modality Neck Right Radio Fluoroscop y 01/10/2025 8:17 AM CART PUSHER Impressions 01/10/2025 8:26 AM CART PUSHER 1. 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 2. Right ICA cavernous segment moderate stenosis from atherosclerosis with delayed filling of the right KIRK/MCA borderzone. These results were discussed with patient and primary team upon conclusion of the case. Dictated by: Rene Marquez M.D. The radiology attending physician has personally reviewed this study, and had reviewed and/or edited this written report and agrees with it. Electronically signed by: Raymond Kinsey M.D. Narrative 01/10/2025 8:26 AM CART PUSHER DIAGNOSTIC CEREBRAL ANGIOGRAM CLINICAL INDICATION: 69 years-old Female with right-sided mixed density subdural hematoma status post fall on dual antiplatelet medication. She presents for diagnostic cerebral angiogram and possible right middle meningeal artery embolization. PROCEDURE: 1. Cerebral angiography: Right common carotid artery, right external carotid artery injections 2. Ultrasound-guided vascular access DURATION OF PROCEDURE: Approximately 60 minutes. ATTENDING PHYSICIAN: Raymond Kinsey MD was present for the entire procedure. ASSISTING PHYSICIANS: MD Deep Buchanan MD ANESTHESIA: Moderate sedation DEVICES: 21-gauge needle 6 Albanian Merit Prelude IDeal sheath and mini guidewire 6 Fr Flipituretronic RIST long sheath 5.Fr Penumbra Osei 2 catheter Terumo Glidewire [place] 1018 microcatheter Synchro Select 014 microwire TR Band MEDICATIONS: Local Anesthesia: 1% Lidocaine SQ Sedation and Analgesia: Versed IV, Fentanyl IV Radial artery cocktail: Verapamil (2.5 mg), Nitroglycerin (200 mcg), and Heparin (3000 units) CONTRAST: Visipaque-270 50 mL ESTIMATED BLOOD LOSS: 20 mL COMPLICATIONS: None TECHNIQUE: Prior to the procedure, the technical aspects of the procedure, as well as benefits, potential risks and alternate options, were explained to the patient . Specifically, the risks of cerebral infarction, hemorrhage, weakness, paralysis, sensory changes, vision decline/blindness, cranial nerve palsy, facial pain, anaphylaxis, renal failure, access site hematoma, arterial dissection, arterial pseudoaneurysm, arteriovenous fistula, coma or even were discussed with the patient in person. Informed consent was obtained. Moderate sedation (intravenous fentanyl and midazolam) was administered under the direction of the attending physician with continuous monitoring by a trained nurse specialist independent of those performing the procedure. Total monitored sedation time was 60 minutes. The patient was prepared and draped in the standard sterile fashion. Access to the vascular system was gained in the usual way by a single-wall puncture of the right radial artery at the anatomical snuff box under ultrasound guidance. Ultrasound images demonstrated a patent vessel and were stored to PACS.. The 6 Albanian Terumo Glidesheath 25cm was then introduced into the right radial artery over the mini guidewire. A cocktail of Verapamil (2.5 mg), Nitroglycerin (200 mcg), and Heparin (3000 units) was slowly injected into the right radial artery through the sheath over several minutes, with close monitoring of blood pressure. A coaxial assembly of 6 Fr Medtronic RIST radial access sheath and 5 Fr [place] Universityumbra Osei 2 catheter and Terumo Glidewire were inserted through the short sheath and advanced into the aortic arch under fluoroscopic visualization and the Osei catheter was formed over the aortic arch. Using fluoroscopic guidance, selective catheterization of the right common carotid artery was performed and digital angiograms were obtained, centered over the head and neck with AP, lateral, and oblique views. The right common carotid artery was then selected, and initial angiography demonstrated angiographic appearance of right subdural hematoma. The right ophthalmic artery arises from the right internal carotid artery in standard anatomical configuration. The long sheath was advanced into the proximal right external carotid artery. A coaxial assembly of [place] 1018 microcatheter and Synchro Select 014 microwire was prepared in standard fashion through a series of rotating hemostatic valves connected to a pressurized infusion of heparinized saline. This assembly was gently advanced through the guide catheter into the right external carotid artery and multiple attempts were made to selectively catheterize the right middle meningeal artery under fluoroscopic roadmap guidance. However the origin of the right middle meningeal artery had significant atherosclerotic disease and was extremely atretic we are unable to catheterize the right middle meningeal artery. Due to our inability to catheterize the right middle meningeal artery further attempts at embolization were aborted. The guide catheter was removed from the sheath. The radial sheath was removed and a TR band was used for hemostasis. There were no immediate complications. The patient was transported to the sneed in unchanged neurological condition. FINDINGS: RIGHT COMMON CAROTID ARTERY, CERVICAL: The bifurcation is smooth, without irregularity, calcification, or stenosis with respect to the distal right internal carotid artery. There is normal opacification of right cervical external carotid artery branches. RIGHT COMMON CAROTID ARTERY, CEREBRAL: There is no evidence of aneurysm or early draining vein. The right opthalmic artery arises from the right internal carotid artery in standard configuration. Right ICA cavernous segment moderate stenosis from atherosclerosis with delayed filling of the right KIRK/MCA borderzone. RIGHT EXTERNAL CAROTID ARTERY, CEREBRAL: There is no intracranial early venous drainage. Standard origin of the right middle meningeal artery is seen. There was significant stenosis at the origin of the right middle meningeal artery. Procedure Note Raymond Kinsey MD - 01/10/2025 DIAGNOSTIC CEREBRAL ANGIOGRAM CLINICAL INDICATION: 69 years-old Female with right-sided mixed density subdural hematoma status post fall on dual antiplatelet medication. She presents for diagnostic cerebral angiogram and possible right middle meningeal artery embolization. PROCEDURE: 1. Cerebral angiography: Right common carotid artery, right external carotid artery injections 2. Ultrasound-guided vascular access DURATION OF PROCEDURE: Approximately 60 minutes. ATTENDING PHYSICIAN: Raymond Kinsey MD was present for the entire procedure. ASSISTING PHYSICIANS: MD Deep Buchanan MD ANESTHESIA: Moderate sedation DEVICES: 21-gauge needle 6 [place] Merit Prelude IDeal sheath and mini guidewire 6 Fr Flipituretronic RIST long sheath 5.Fr Penumbra Osei 2 catheter Terumo Glidewire [place] 1018 microcatheter Synchro Select 014 microwire TR Band MEDICATIONS: Local Anesthesia: 1% Lidocaine SQ Sedation and Analgesia: Versed IV, Fentanyl IV Radial artery cocktail: Verapamil (2.5 mg), Nitroglycerin (200 mcg), and Heparin (3000 units) CONTRAST: Visipaque-270 50 mL ESTIMATED BLOOD LOSS: 20 mL COMPLICATIONS: None TECHNIQUE: Prior to the procedure, the technical aspects of the procedure, as well as benefits, potential risks and alternate options, were explained to the patient . Specifically, the risks of cerebral infarction, hemorrhage, weakness, paralysis, sensory changes, vision decline/blindness, cranial nerve palsy, facial pain, anaphylaxis, renal failure, access site hematoma, arterial dissection, arterial pseudoaneurysm, arteriovenous fistula, coma or even were discussed with the patient in person. Informed consent was obtained. Moderate sedation (intravenous fentanyl and midazolam) was administered under the direction of the attending physician with continuous monitoring by a trained nurse specialist independent of those performing the procedure. Total monitored sedation time was 60 minutes. The patient was prepared and draped in the standard sterile fashion. Access to the vascular system was gained in the usual way by a single-wall puncture of the right radial artery at the anatomical snuff box under ultrasound guidance. Ultrasound images demonstrated a patent vessel and were stored to PACS.. The 6 [place] Terumo Glidesheath 25cm was then introduced into the right radial artery over the mini guidewire. A cocktail of Verapamil (2.5 mg), Nitroglycerin (200 mcg), and Heparin (3000 units) was slowly injected into the right radial artery through the sheath over several minutes, with close monitoring of blood pressure. A coaxial assembly of 6 Fr Flipituretronic RIST radial access sheath and 5 Fr [place] Universityumbra Osei 2 catheter and Terumo Glidewire were inserted through the short sheath and advanced into the aortic arch under fluoroscopic visualization and the Osei catheter was formed over the aortic arch. Using fluoroscopic guidance, selective catheterization of the right common carotid artery was performed and digital angiograms were obtained, centered over the head and neck with AP, lateral, and oblique views. The right common carotid artery was then selected, and initial angiography demonstrated angiographic appearance of right subdural hematoma. The right ophthalmic artery arises from the right internal carotid artery in standard anatomical configuration. The long sheath was advanced into the proximal right external carotid artery. A coaxial assembly of [place] 1018 microcatheter and Synchro Select 014 microwire was prepared in standard fashion through a series of rotating hemostatic valves connected to a pressurized infusion of heparinized saline. This assembly was gently advanced through the guide catheter into the right external carotid artery and multiple attempts were made to selectively catheterize the right middle meningeal artery under fluoroscopic roadmap guidance. However the origin of the right middle meningeal artery had significant atherosclerotic disease and was extremely atretic we are unable to catheterize the right middle meningeal artery. Due to our inability to catheterize the right middle meningeal artery further attempts at embolization were aborted. The guide catheter was removed from the sheath. The radial sheath was removed and a TR band was used for hemostasis. There were no immediate complications. The patient was transported to the sneed in unchanged neurological condition. FINDINGS: RIGHT COMMON CAROTID ARTERY, CERVICAL: The bifurcation is smooth, without irregularity, calcification, or stenosis with respect to the distal right internal carotid artery. There is normal opacification of right cervical external carotid artery branches. RIGHT COMMON CAROTID ARTERY, CEREBRAL: There is no evidence of aneurysm or early draining vein. The right opthalmic artery arises from the right internal carotid artery in standard configuration. Right ICA cavernous segment moderate stenosis from atherosclerosis with delayed filling of the right KIRK/MCA borderzone. RIGHT EXTERNAL CAROTID ARTERY, CEREBRAL: There is no intracranial early venous drainage. Standard origin of the right middle meningeal artery is seen. There was significant stenosis at the origin of the right middle meningeal artery. IMPRESSION: 1. 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 2. Right ICA cavernous segment moderate stenosis from atherosclerosis with delayed filling of the right KIRK/MCA borderzone. These results were discussed with patient and primary team upon conclusion of the case. Dictated by: Rene Marquez M.D. The radiology attending physician has personally reviewed this study, and had reviewed and/or edited this written report and agrees with it. Electronically signed by: Raymond Kinsey M.D. Mihai Brar MD IMG IR PROCEDURES Aracelis l Result * Transfuse platelets (01/09/2025 10:40 AM CART PUSHER) Blood Fracisco Liang MD PhD BLOOD TRANSFUSION O RDERABLES Final Result [facility] [place] [address] * (ABNORMAL) Urinalysis reflex to microscopic and culture Urine (01/09/2025 10:25 AM CART PUSHER) Color, ur Straw Yellow Clarity, ur Clear Clear [facility] Specific gravity, ur 1.035(H) 1.003 - 1.030 [facility] pH, urine 6.0 [facility] Comment: Interpretive Data U rine pH is affected by diet, medications, systemic acid-base disturbances, and renal tubular function. pH may affect urinary stone formation. For example, urine pH below 6.0 may help reduce the tendency for calcium phosphate stones and pH greater than 6.0 may reduce the tendency for uric acid stone formation. Source: [facility] Current Interpretive Data was last revised on 2017 Protein, ur ql Trace Negative [facility] Glucose, ur ql Negative Negative [facility] Ketones, ur Negative Negative [facility] Bilirubin, ur Negative Negative [facility] Blood, ur Negative Negative [facility] Urobilinogen, ur <2.0 <2.0 mg/dL [facility] Nitrite, ur Negative Negative [facility] Leukocyte esterase, ur Negative Negative [facility] UA reflex comment Reflex conditions for microscopic UA and culture not met. [facility] Urine 01/09/2025 10:2 5 AM CART PUSHER 01/09/2025 10:31 AM CART PUSHER us Fracisco Liang MD PhD LAB MICROBIOLOGY - GENERAL ORDERABLES Final Result [facility] [place] [address] * Transfuse platelets (01/09/2025 10:08 AM CART PUSHER) Blood Fracisco Liang MD PhD BLOOD TRANSFUSION O RDERABLES Final Result [facility] [place] [address] * CT Head WO Contrast (01/09/2025 9:17 AM CART PUSHER) Anatomical Region Laterality Modality Head and Neck N/A Computed Tomogra phy 01/09/2025 10:2 5 AM CART PUSHER Impressions 01/09/2025 10:25 AM CART PUSHER Interval mild decrease in volume of subdural hematoma along the right cerebral convexity. Right parietal scalp hematoma. Electronically signed by: Daniel Bueno MD, PHD Narrative 01/09/2025 10:25 AM CART PUSHER EXAMINATION: CT head without contrast HISTORY: Subdural hematoma follow-up TECHNIQUE: CT of the head was performed with images acquired from skull base to vertex without intravenous contrast. COMPARISON: 01/09/2025 2:50 AM FINDINGS: Subdural hematoma along the right cerebral convexity is mildly decreased in size compared to prior study. There is one or 2 mm leftward midline shift. There is no acute intracranial hemorrhage. Ventricles are of normal size and morphology. No mass effect or midline shift is present. The youngblood-white matter differentiation is normal. The visualized portions of the orbits are normal. The visualized portions of the mastoids are normal. Frothy secretion in the right sphenoid sinus, likely sinusitis. No fractures are identified. 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 Procedure Note Daniel Bueno MD PhD - 01/09/2025 EXAMINATION: CT head without contrast HISTORY: Subdural hematoma follow-up TECHNIQUE: CT of the head was performed with images acquired from skull base to vertex without intravenous contrast. COMPARISON: 01/09/2025 2:50 AM FINDINGS: Subdural hematoma along the right cerebral convexity is mildly decreased in size compared to prior study. There is one or 2 mm leftward midline shift. There is no acute intracranial hemorrhage. Ventricles are of normal size and morphology. No mass effect or midline shift is present. The youngblood-white matter differentiation is normal. The visualized portions of the orbits are normal. The visualized portions of the mastoids are normal. Frothy secretion in the right sphenoid sinus, likely sinusitis. No fractures are identified. 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 IMPRESSION: Interval mild decrease in volume of subdural hematoma along the right cerebral convexity. Right parietal scalp hematoma. Electronically signed by: Daniel Bueno MD, PHD Fracisco Liang MD PhD IMG CT PROCEDURES F inal Result * PA CRITICAL CARE ILL/INJURED PATIENT INIT 30-74 MIN (01/09/2025 7:50 AM CART PUSHER) Narrative Jeff Slaughter MD - 01/09/2025 7:50 AM CART PUSHER Jeff Slaughter MD 01/09/2025 7:52 AM Critical Care Performed by: Jeff Slaughter MD Authorized by: Jeff Slaughter MD Critical care provider statement: As reflected in the history, physical exam, orders, notes, and/or MDM, I was personally present while the patient was critically ill and provided critical care services for 35 minutes, excluding time involved in separately billable procedures. Critical care was necessary to treat or prevent imminent or life-threatening deterioration of the following condition(s): acute intracranial hemorrhage severe coagulopathy traumatic brain injury Critical care was time spent by me providing the following: continuous telemetry, continuous pulse oximetry, interpretation of bedside monitors, imaging, and arterial/venous lab draws and serial bedside patient exams frequent neurologic exams and initiation of anti-epileptic therapy transfusion of blood products I provided emergent necessary critical care medicine services to this patient. I ordered and reviewed test results and/or imaging studies. I spent time discussing the management and therapeutic options for this critically ill patient with the patient themselves or with the appropriate designated surrogate decision-maker. I spent time documenting in the medical record. I spent time discussing the management of this critically ill patient with consultants and the medical staff. us Jeff Slaughter MD IN CLINIC/BEDSID E ORDERABLES Final Result * Troponin I high-sensitivity 2-hour (01/09/2025 6:47 AM CART PUSHER) Trop I hs 5 <=17 ng/L Comment: Interpretive Data For further hscTnI resources including the diagnostic algorithm and an aid in interpretation, copy and paste this link: https://bjhlab.testcatalog.org/show/[email or web address] Current Interpretive Data last revised 2020. Trop I hs delta -1 ng/L [facility] Trop I hs interp Insignificant [facility] Blood 01/09/2025 6:47 AM CART PUSHER 01/09/2025 7:45 AM CART PUSHER us Fracisco Liang MD PhD LAB BLOOD ORDERABLE S Final Result Performing Organization Address City/[facility]/ZIP Co de Phone Number [facility] [place] [address] * Check Sample (01/09/2025 6:39 AM CART PUSHER) ABO Rh A Positive [facility] OTHER 01/09/2025 6:39 AM CART PUSHER 01/09/2025 7:07 AM CART PUSHER Jeff Slaughter MD LAB BLOOD ORDERA BLES Final Result Performing Organization Address [facility] de Phone Number [facility] Department [place] [address] [facility] * XR Clavicle Bilateral Complete (01/09/2025 6:15 AM CART PUSHER) Anatomical Region Laterality Modality Clavicle, Chest Bilateral Computed Radiogr aphy 01/09/2025 6:25 AM CART PUSHER Impressions 01/09/2025 7:07 AM CART PUSHER There is an acute minimally displaced comminuted fracture of the right distal clavicle. There is shortening of the left distal clavicle which may be related to prior clavicular excision or post-traumatic osteolysis. The sternoclavicular joints appear intact without evidence of dislocation. Dictated by: Corbin Galeana MD The radiology attending physician has personally reviewed this study, and had reviewed and/or edited this written report and agrees with it. Electronically signed by: Abelardo Baca M.D. Narrative 01/09/2025 7:07 AM CART PUSHER EXAMINATION: XR CLAVICLE BILATERAL COMPLETE HISTORY: clavicle fx COMPARISON: Same day outside radiographs Procedure Note Abelardo Baca MD - 01/09/2025 EXAMINATION: XR CLAVICLE BILATERAL COMPLETE HISTORY: clavicle fx COMPARISON: Same day outside radiographs IMPRESSION: There is an acute minimally displaced comminuted fracture of the right distal clavicle. There is shortening of the left distal clavicle which may be related to prior clavicular excision or post-traumatic osteolysis. The sternoclavicular joints appear intact without evidence of dislocation. Dictated by: Corbin Galeana MD The radiology attending physician has personally reviewed this study, and had reviewed and/or edited this written report and agrees with it. Electronically signed by: Abelardo Baca M.D. us Jeff Slaughter MD IMG XR PROCEDURE S Final Result * ECG 12-LEAD (01/09/2025 5:54 AM CART PUSHER) Narrative [facility] - 01/09/2025 5:54 AM CART PUSHER Jeff Slaughter MD 01/09/2025 5:54 AM ECG 12 lead Date/Time: 01/09/2025 5:54 AM Performed by: Jeff Slaughter MD Authorized by: Fracisco Liang MD PhD Comments: Normal sinus rhythm rate 86, normal axis, normal PA, QRS, QTC intervals, no significant ST or T-wave changes. Procedure Note Jeff Slaughter MD - 01/09/2025 5:54 AM CST Procedure ECG 12 lead Date/Time: 01/09/2025 5:54 AM Performed by: Jeff Slaughter MD Authorized by: Fracisco Liang MD PhD Comments: Normal sinus rhythm rate 86, normal axis, normal PA, QRS, QTCintervals, no significant ST or T-wave changes. Jeff Slaughter MD 01/09/25 0554 us Fracisco Liang MD PhD ECG ORDERABLES Fin al Result [facility] * CT Recon Thoracic and Lumbar Spine W Contrast (C) (01/09/2025 5:49 AM CART PUSHER) Anatomical Region Laterality Modality Spine N/A Computed Tomogra phy 01/09/2025 6:06 AM CART PUSHER Impressions 01/09/2025 10:08 AM CART PUSHER No evidence of acute fracture in the thoracic or lumbar spine. Dictated by: Kannan Spence M.D. The radiology attending physician has personally reviewed this study, and had reviewed and/or edited this written report and agrees with it. Electronically signed by: Jamari Rai M.D. Narrative 01/09/2025 10:08 AM CART PUSHER EXAMINATION: 1. CT of the thoracic spine with contrast 2. CT of the lumbar spine with contrast HISTORY: Fall TECHNIQUE: Dedicated reconstructions of the thoracic and lumbar spine were generated using data from a CT of the chest, abdomen, and pelvis acquired with intravenous contrast according to standard protocol. COMPARISON: None Available. FINDINGS: THORACIC SPINE: There are 12 rib-bearing thoracic vertebra. Thoracic dextrocurvature is present. There is no acute fracture. Vertebral bodies are normal in height without compression fractures, apart from mild height loss centrally in the T8 vertebral body, likely secondary to Schmorl's nodes. Multilevel degenerative disc disease is most pronounced and moderate at T1-T2. Soft tissue findings are dictated separately. Please see that report. Aortic calcifications are present. LUMBAR SPINE: Rotary lumbar levoscoliosis is present. There is no acute fracture. The vertebral bodies are normal in height without compression fractures. Multilevel degenerative disc disease is most pronounced and moderate at L4-L5. Soft tissue findings are dictated separately. Please see that report. Procedure Note Jamari Rai MD PhD - 01/09/2025 EXAMINATION: 1. CT of the thoracic spine with contrast 2. CT of the lumbar spine with contrast HISTORY: Fall TECHNIQUE: Dedicated reconstructions of the thoracic and lumbar spine were generated using data from a CT of the chest, abdomen, and pelvis acquired with intravenous contrast according to standard protocol. COMPARISON: None Available. FINDINGS: THORACIC SPINE: There are 12 rib-bearing thoracic vertebra. Thoracic dextrocurvature is present. There is no acute fracture. Vertebral bodies are normal in height without compression fractures, apart from mild height loss centrally in the T8 vertebral body, likely secondary to Schmorl's nodes. Multilevel degenerative disc disease is most pronounced and moderate at T1-T2. Soft tissue findings are dictated separately. Please see that report. Aortic calcifications are present. LUMBAR SPINE: Rotary lumbar levoscoliosis is present. There is no acute fracture. The vertebral bodies are normal in height without compression fractures. Multilevel degenerative disc disease is most pronounced and moderate at L4-L5. Soft tissue findings are dictated separately. Please see that report. IMPRESSION: No evidence of acute fracture in the thoracic or lumbar spine. Dictated by: Kannan Spence M.D. The radiology attending physician has personally reviewed this study, and had reviewed and/or edited this written report and agrees with it. Electronically signed by: Jamari Rai M.D. us Fracisco Liang MD PhD IMG CT PROCEDURES F inal Result * CT Chest Abdomen Pelvis W Contrast (01/09/2025 5:49 AM CART PUSHER) Anatomical Region Laterality Modality Body N/A Computed Tomogra phy 01/09/2025 6:12 AM CART PUSHER Impressions 01/09/2025 7:01 AM CART PUSHER No acute abnormality within the chest, abdomen, or pelvis. Dictated by: Corbin Galeana MD The radiology attending physician has personally reviewed this study, and had reviewed and/or edited this written report and agrees with it. Electronically signed by: Abelardo Baca M.D. Narrative 01/09/2025 7:01 AM CART PUSHER EXAMINATION: Computed tomography of the chest, abdomen and pelvis with intravenous contrast HISTORY: Fall TECHNIQUE: Transaxial computed tomographic images of the chest, abdomen and pelvis were obtained with intravenous contrast according to the standard protocol after the uneventful administration of 70 mL Opti-Ray 350 intravenous contrast. COMPARISON: None FINDINGS: Heart size normal. No pericardial effusion. Coronary, aortic, and branch vessel calcifications. There is a calcified 1.3 cm right thyroid nodule, for which no dedicated follow-up imaging is required in light of its size (less than 1.5 cm). No supraclavicular or axillary lymphadenopathy. There are multiple prominent but subcentimeter mediastinal lymph nodes which are likely reactive. Additional borderline enlarged 1.3 cm right hilar lymph node and subcentimeter more prominent bilateral parahilar lymph nodes are noted and also likely reactive given the symmetry. There are multiple scattered subcentimeter nodules within the lungs including a 5 mm nodule within the right upper lobe (series 5 image 55). Some of these nodules are along the fissures and regular in shape which likely represent perifissural nodes. No lobar consolidation, pneumothorax, or pleural effusion. Central airways are patent. There is mild bibasilar atelectasis. The liver is normal. Cholelithiasis without evidence of cholecystitis of biliary duct dilatation. There is variant portal vein anatomy. The portal and splenic veins are patent. Pancreas, spleen, and adrenals are normal. Kidneys are normal. No hydronephrosis. There is mildly hyperattenuating material within the bladder, likely excreted contrast from recent vascular procedure. Fibroid uterus. No suspicious adnexal mass. No free pelvic fluid. Colon and appendix are normal. No bowel obstruction or free air. There is a small hiatal hernia with distal esophageal wall thickening likely related to liver reflux esophagitis. The remaining stomach and duodenum are normal. No abdominal or pelvic lymphadenopathy. Pressure dressing is noted along the right groin likely related to recent catheterization. No suspicious osseous lesions. No fractures. Procedure Note Abelardo Baca MD - 01/09/2025 EXAMINATION: Computed tomography of the chest, abdomen and pelvis with intravenous contrast HISTORY: Fall TECHNIQUE: Transaxial computed tomographic images of the chest, abdomen and pelvis were obtained with intravenous contrast according to the standard protocol after the uneventful administration of 70 mL Opti-Ray 350 intravenous contrast. COMPARISON: None FINDINGS: Heart size normal. No pericardial effusion. Coronary, aortic, and branch vessel calcifications. There is a calcified 1.3 cm right thyroid nodule, for which no dedicated follow-up imaging is required in light of its size (less than 1.5 cm). No supraclavicular or axillary lymphadenopathy. There are multiple prominent but subcentimeter mediastinal lymph nodes which are likely reactive. Additional borderline enlarged 1.3 cm right hilar lymph node and subcentimeter more prominent bilateral parahilar lymph nodes are noted and also likely reactive given the symmetry. There are multiple scattered subcentimeter nodules within the lungs including a 5 mm nodule within the right upper lobe (series 5 image 55). Some of these nodules are along the fissures and regular in shape which likely represent perifissural nodes. No lobar consolidation, pneumothorax, or pleural effusion. Central airways are patent. There is mild bibasilar atelectasis. The liver is normal. Cholelithiasis without evidence of cholecystitis of biliary duct dilatation. There is variant portal vein anatomy. The portal and splenic veins are patent. Pancreas, spleen, and adrenals are normal. Kidneys are normal. No hydronephrosis. There is mildly hyperattenuating material within the bladder, likely excreted contrast from recent vascular procedure. Fibroid uterus. No suspicious adnexal mass. No free pelvic fluid. Colon and appendix are normal. No bowel obstruction or free air. There is a small hiatal hernia with distal esophageal wall thickening likely related to liver reflux esophagitis. The remaining stomach and duodenum are normal. No abdominal or pelvic lymphadenopathy. Pressure dressing is noted along the right groin likely related to recent catheterization. No suspicious osseous lesions. No fractures. IMPRESSION: No acute abnormality within the chest, abdomen, or pelvis. Dictated by: Corbin Galeana MD The radiology attending physician has personally reviewed this study, and had reviewed and/or edited this written report and agrees with it. Electronically signed by: Abelardo Baca M.D. Fracisco Liang MD PhD IMG CT PROCEDURES F inal Result * Prepare platelets: 2 Units (01/09/2025 5:18 AM CART PUSHER) Product code [id number] Unit Number [id number] [facility] Product Blood Type APOS [facility] Dispense Status PRESUMED TRANSFUSED [facility] Product code [id number] [facility] Unit Number [id number] [facility] Product Blood Type APOS [facility] Dispense Status TRANSFUSED WITH REACTION [facility] Blood Venous blood specimen / Unknown 01/09/2025 5:18 AM CART PUSHER 01/09/2025 5:18 AM CART PUSHER Narrative [facility] - 01/09/2025 9:01 PM CART PUSHER Are special requirements needed? (all products are leukoreduced)->No Date required:-[id number] PLT # of Units:-2-Units Reasons:-Bleeding/pre-op with platelet dysfunction} Fracisco Liang MD PhD BLOOD BANK PRODUCT ORDERABLES Final Result Performing Organization Address [facility] Co de Phone Number [facility] [place] [address] * Troponin I high-sensitivity series (baseline, 2hr, 4hr, 6hr) (01/09/2025 5:12 AM CART PUSHER) [facility] Trop I hs 6 <=17 ng/L Comment: Interpretive Data For further hscTnI resources including the diagnostic algorithm and an aid in interpretation, copy and paste this link: [email or web address] Current Interpretive Data last revised 2020. Blood 01/09/2025 5:12 AM CART PUSHER 01/09/2025 5:28 AM CART PUSHER Fracisco Liang MD PhD LAB BLOOD ORDERABLE S Final Result Performing Organization Address [facility] de Phone Number [facility] [place] [address] * (ABNORMAL) Differential, auto (01/09/2025 5:12 AM CART PUSHER) [facility] Neutrophil abs 4.9 1.5 - 6.5 K/cumm Imm gran abs 0.0 0.0 - 0.1 K/cumm [facility] Lymphocyte abs 2.8 0.8 - 3.3 K/cumm [facility] Monocyte abs 0.6 0.2 - 0.8 K/cumm [facility] Eosinophil abs 1.0(H) 0.0 - 0.5 K/cumm [facility] Basophil abs 0.1 0.0 - 0.1 K/cumm [facility] Neutrophil pct 51.8 % [facility] Comment: Interpretive Data Percent cell count reference ranges are not reported, since discordance with absolute values may lead to misinterpretation of CBC data. Current Interpretive Data was last revised on 2018. Imm gran pct 0.2 % [facility] Comment: Interpretive Data Percent cell count reference ranges are not reported, since discordance with absolute values may lead to misinterpretation of CBC data. Current Interpretive Data was last revised on 2018. Lymphocyte pct 30.0 % [facility] Comment: Interpretive Data Percent cell count reference ranges are not reported, since discordance with absolute values may lead to misinterpretation of CBC data. Current Interpretive Data was last revised on 2018. Monocyte pct 6.8 % [facility] Comment: Interpretive Data Percent cell count reference ranges are not reported, since discordance with absolute values may lead to misinterpretation of CBC data. Current Interpretive Data was last revised on 2018. Eosinophil pct 10.7 % [facility] Comment: Interpretive Data Percent cell count reference ranges are not reported, since discordance with absolute values may lead to misinterpretation of CBC data. Current Interpretive Data was last revised on 2018. Basophil pct 0.5 % [facility] Comment: Interpretive Data Percent cell count reference ranges are not reported, since discordance with absolute values may lead to misinterpretation of CBC data. Current Interpretive Data was last revised on 2018. Blood 01/09/2025 5:12 AM CART PUSHER 01/09/2025 5:28 AM CART PUSHER us Fracisco Liang MD PhD LAB BLOOD ORDERABLE S Final Result [facility] Department [place] [address] * Respiratory pathogen panel Nasopharyngeal (01/09/2025 5:12 AM CART PUSHER) Influenza A RNA Not Detected Not Detected Influenza B RNA Not Detected Not Detected [facility] RSV RNA Not Detected Not Detected [facility] COVID-19 RNA Not Detected Not Detected [facility] Coronavirus 229E RNA Not Detected Not Detected [facility] Coronavirus HKU1 RNA Not Detected Not Detected [facility] Coronavirus NL63 RNA Not Detected Not Detected [facility] Coronavirus OC43 RNA Not Detected Not Detected [facility] Adenovirus DNA Not Detected Not Detected [facility] Metapneumovirus RNA Not Detected Not Detected [facility] Rhinovirus/Enterov irus RNA Not Detected Not Detected [facility] Parainfluenza 1 RNA Not Detected Not Detected [facility] Parainfluenza 2 RNA Not Detected Not Detected [facility] Parainfluenza 3 RNA Not Detected Not Detected [facility] Parainfluenza 4 RNA Not Detected Not Detected [facility] B. pertussis DNA Not Detected Not Detected [facility] B. parapertussis DNA Not Detected Not Detected [facility] C. pneumoniae DNA Not Detected Not Detected [facility] M. pneumoniae DNA Not Detected Not Detected [facility] Nasopharyngeal 01/09/2025 5: 12 AM CART PUSHER 01/09/2025 6:14 AM CART PUSHER Narrative [facility] - 01/09/2025 6:50 AM CART PUSHER Is the Patient experiencing symptoms consistent with COVID?->Yes Surveillance testing for transplant patient?->No Interpretive Data The [employer] FilmArray Respiratory Panel (RP2.1) assay is a multiplexed real-time PCR based nucleic acid test capable of simultaneous qualitative detection and identification of multiple respiratory viral and bacterial nucleic acids, including SARS Coronavirus 2 (the causative agent of COVID-19). The following bacteria, viruses and virus subtypes can be identified using the FilmArray RP2.1 assay: Bordetella pertussis, Bordetella parapertussis, Chlamydia pneumoniae, Mycoplasma pneumoniae, Adenovirus, SARS Coronavirus 2, seasonal coronaviruses (Coronavirus HKU1, Coronavirus NL63, Coronavirus 229E, and Coronavirus OC43), Influenza A, Influenza A subtype H1, Influenza A subtype H3, Influenza A subtype 2009 H1, Influenza B, Metapneumovirus, Parainfluenza 1, Parainfluenza 2, Parainfluenza 3, Parainfluenza 4, RSV, Rhinovirus/Enterovirus. Due to the genetic similarity between human Rhinovirus and Enterovirus, the FilmArray RP2.1 assay cannot reliably differentiate them. Coronavirus OC43 may cross-react with some isolates of Coronavirus HKU1. A dual positive result may be due to cross-reactivity or may indicate a co- infection. The detection and identification of specific viral and bacterial nucleic acids from individuals exhibiting signs and symptoms of a respiratory infection aids in the diagnosis of respiratory infection if used in conjunction with other clinical and epidemiological information. The results of this test should not be used as the sole basis for diagnosis, treatment, or other management decisions. Negative results in the setting of a respiratory illness may be due to infection with pathogens that are not detected by this test. Positive results do not rule out infection/co-infection with other organisms. The agent(s) detected by the FilmArray RP2.1 may not be the definite cause of disease. Additional testing (lab, imaging, etc.) may be necessary when evaluating a patient with possible respiratory tract infection. The FilmArray RP2.1 assay has FDA clearance for testing of TELEPHONE [employer]ATION INST[employer]ER swabs. The performance of additional specimen types has been assessed by the performing laboratory. The performance characteristics of this assay have been determined by [facility]. Current interpretive data was last revised on 22. us Fracisco Liang MD PhD LAB MICROBIOLOGY - GENERAL ORDERABLES Final Result [facility] [place] [address] * (ABNORMAL) CBC with auto differential (01/09/2025 5:12 AM CART PUSHER) WBC 9.4 3.8 - 9.9 K/cumm Hgb 9.4(L) 11.9 - 15.5 g/dL [facility] Hct 29.2(L) 35.6 - 45.5 % [facility] Plt 258 150 - 400 K/cumm [facility] MPV 10.1 9.1 - 12.3 fL [facility] RBC 3.52(L) 3.90 - 5.20 M/cumm [facility] MCV 83.0 81.3 - 96.4 fL [facility] MCH 26.7(L) 27.1 - 33.3 pg [facility] MCHC 32.2(L) 32.3 - 35.7 g/dL [facility] RDW CV 13.4 11.1 - 14.9 % [facility] RDW SD 40.0 35.7 - 48.1 fL [facility] NRBC abs 0.00 0.00 - 0.01 K/cumm [facility] Blood 01/09/2025 5:12 AM CART PUSHER 01/09/2025 5:28 AM CART PUSHER Fracisco Liang MD PhD LAB BLOOD ORDERABLE S Final Result Performing Organization Address [facility] Co de Phone Number [facility] Department [place] [address] * Type and screen (01/09/2025 5:12 AM CART PUSHER) Meeta, indirect Negative ABO Rh A Positive [facility] Blood 01/09/2025 5:12 AM CART PUSHER 01/09/2025 5:31 AM CART PUSHER Narrative [facility] - 01/09/2025 6:32 AM CART PUSHER Has the patient had Daratumumab or Isatuximab in the past 6 months?->Unknown Fracisco Liang MD PhD LAB BLOOD BANK TEST ORDERABLES Final Result Performing Organization Address [facility] Co de Phone Number [facility] [place] [address] * XR Pelvis 1 or 2 Views (01/09/2025 5:08 AM CART PUSHER) Anatomical Region Laterality Modality Body, Pelvis N/A Computed Radiogr aphy 01/09/2025 5:12 AM CART PUSHER Impressions 01/09/2025 7:43 PM CART PUSHER 1. No acute fracture. Dictated by: Sebastián Fernandez MD The radiology attending physician has personally reviewed this study, and had reviewed and/or edited this written report and agrees with it. Electronically signed by: Jacquelyn Dow M.D. Narrative 01/09/2025 7:43 PM CART PUSHER EXAMINATION: XR PELVIS 1 OR 2 VIEWS HISTORY: Fall FINDINGS: 1 view of the pelvis is submitted for interpretation. Comparison made to 06/18/2023. No acute fracture or dislocation. Normal alignment. Mild bilateral hip osteoarthritis. Procedure Note Jacquelyn Dow MD - 01/09/2025 EXAMINATION: XR PELVIS 1 OR 2 VIEWS HISTORY: Fall FINDINGS: 1 view of the pelvis is submitted for interpretation. Comparison made to 06/18/2023. No acute fracture or dislocation. Normal alignment. Mild bilateral hip osteoarthritis. IMPRESSION: 1. No acute fracture. Dictated by: Sebastián Fernandez MD The radiology attending physician has personally reviewed this study, and had reviewed and/or edited this written report and agrees with it. Electronically signed by: Jacquelyn Dow M.D. Jeff Slaughter MD IMG XR PROCEDURE S Final Result * CT Cervical Spine WO Contrast (01/09/2025 3:42 AM CART PUSHER) Anatomical Region Laterality Modality Spine N/A Computed Tomogra phy 01/09/2025 3:52 AM CART PUSHER Narrative 01/09/2025 3:54 AM CART PUSHER EXAM DESCRIPTION: CT CERVICAL SPINE WO CONTRAST REASON FOR STUDY: Neck trauma (Age >= 65y) Fall, patient struck right shoulder and right side of head. TECHNIQUE: Axial images through the cervical spine with sagittal and coronal reformatted images. Automated exposure control was used as a dose optimization technique for this examination. COMPARISON: 06/18/2023 FINDINGS: VERTEBRAE: Vertebral bodies are normal in height and alignment. Moderate disc disease and facet arthropathy. Facet joints and craniocervical junction are congruent. No spinal fracture identified. OTHER OSSEOUS STRUCTURES: Visualized ribs, clavicles, and scapula are intact. Visualized skull base and mandible appear normal. SOFT TISSUES: Calcified right thyroid nodule. INTRACRANIAL: Unremarkable. IMPRESSION: No fracture or malalignment identified. THIS IS AN ELECTRONICALLY VERIFIED FINAL REPORT 01/09/2025 3:54 AM - Electronically signed by Deep Quiles M.D. AR: NORA Report ID: [id number] Reading Location: [id number] Procedure Note Deep Quiles MD - 01/09/2025 EXAM DESCRIPTION: CT CERVICAL SPINE WO CONTRAST REASON FOR STUDY: Neck trauma (Age >= 65y) Fall, patient struck right shoulder and right side of head. TECHNIQUE: Axial images through the cervical spine with sagittal andcoronal reformatted images. Automated exposure control was used as a doseoptimization technique for this examination. COMPARISON: 06/18/2023 FINDINGS: VERTEBRAE: Vertebral bodies are normal in height and alignment.Moderate disc disease and facet arthropathy. Facet joints and craniocervical junction are congruent. No spinal fracture identified. OTHER OSSEOUS STRUCTURES: Visualized ribs, clavicles, and scapula areintact. Visualized skull base and mandible appear normal. SOFT TISSUES: Calcified right thyroid nodule. INTRACRANIAL: Unremarkable. IMPRESSION: No fracture or malalignment identified. THIS IS AN ELECTRONICALLY VERIFIED FINAL REPORT 01/09/2025 3:54 AM - Electronically signed by Deep Quiles M.D. AR: NORA Report ID: [id number] Reading Location: [id number] Flori Dugan MD [facility] CT PROCEDURES Final Result * PA CRITICAL CARE ILL/INJURED PATIENT INIT 30-74 MIN (01/09/2025 3:41 AM CART PUSHER) Narrative Flori Dugan MD - 01/09/2025 3:41 AM CART PUSHER Flori Dugan MD 01/09/2025 4:22 AM Critical Care Performed by: Flori Dugan MD Authorized by: Flori Dugan MD Critical care provider statement: As reflected in the history, physical exam, orders, notes, and/or MDM, I was personally present while the patient was critically ill and provided critical care services for 35 minutes, excluding time involved in separately billable procedures. Critical care was necessary to treat or prevent imminent or life-threatening deterioration of the following condition(s): acute intracranial hemorrhage Critical care was time spent by me providing the following: continuous telemetry, interpretation of bedside monitors, imaging, and arterial/venous lab draws and serial bedside patient exams frequent neurologic exams I provided emergent necessary critical care medicine services to this patient. I ordered and reviewed test results and/or imaging studies. I spent time discussing the management of this critically ill patient with consultants and the medical staff. I spent time discussing the management and therapeutic options for this critically ill patient with the patient themselves or with the appropriate designated surrogate decision-maker. I spent time documenting in the medical record. us Flroi Dugan MD IN CLINIC/BEDSIDE ORDERABLES Fin al Result * XR Chest 1 Vw Portable (01/09/2025 3:08 AM CART PUSHER) Anatomical Region Laterality Modality Body, Chest N/A Computed Radiogr aphy 01/09/2025 3:32 AM CART PUSHER Narrative 01/09/2025 3:32 AM CART PUSHER EXAM DESCRIPTION: XR CHEST 1 VIEW REASON FOR STUDY: accidental fall Fall tonight while getting out of bed. Right shoulder pain and deformity. Hx of HTN, Leukemia TECHNIQUE: Portable upright AP view of the chest. COMPARISON: 06/16/2023 FINDINGS: LUNGS AND PLEURA: No focal opacity, large effusion, or pneumothorax identified. HEART/MEDIASTINUM: Trachea midline. Cardiac silhouette normal in size. Mediastinal contours appear normal. BONES: Right lateral clavicular fracture reviewed separately. CHEST WALL: Unremarkable. UPPER ABDOMEN: Unremarkable. IMPRESSION: No acute cardiopulmonary abnormality identified. Right clavicular fracture reviewed separately. THIS IS AN ELECTRONICALLY VERIFIED FINAL REPORT 01/09/2025 3:32 AM - Electronically signed by Deep Quiles M.D. AR: NORA Report ID: [id number] Reading Location: [id number] Procedure Note Deep Quiles MD - 01/09/2025 EXAM DESCRIPTION: XR CHEST 1 VIEW REASON FOR STUDY: accidental fall Fall tonight while getting out of bed. Right shoulder pain and deformity.Hx of HTN, Leukemia TECHNIQUE: Portable upright AP view of the chest. COMPARISON: 06/16/2023 FINDINGS: LUNGS AND PLEURA: No focal opacity, large effusion, or pneumothorax identified. HEART/MEDIASTINUM: Trachea midline. Cardiac silhouette normal in size. Mediastinal contours appear normal. BONES: Right lateral clavicular fracture reviewed separately. CHEST WALL: Unremarkable. UPPER ABDOMEN: Unremarkable. IMPRESSION: No acute cardiopulmonary abnormality identified. Right clavicularfracture reviewed separately. THIS IS AN ELECTRONICALLY VERIFIED FINAL REPORT 01/09/2025 3:32 AM - Electronically signed by Deep Quiles M.D. AR: NORA Report ID: [id number] Reading Location: [id number] Flori Dugan MD IMG XR PROCEDURES Final Result * XR Shoulder Right 2 or More Views (01/09/2025 3:08 AM CART PUSHER) Anatomical Region Laterality Modality Upper Extremities, Shoulder Right Comp uted Radiography 01/09/2025 3:30 AM CART PUSHER Narrative 01/09/2025 3:32 AM CART PUSHER EXAM DESCRIPTION: XR SHOULDER RIGHT 2 OR MORE VIEWS REASON FOR STUDY: Fall Fall tonight while getting out of bed. Right shoulder pain and deformity. Hx of HTN, Leukemia TECHNIQUE: Internal rotation, external rotation, and Y views of the shoulder. COMPARISON: 06/16/2023 FINDINGS: BONES/JOINTS: Comminuted fracture of the lateral clavicular head. AC joint remains grossly congruent. Mild glenohumeral and acromioclavicular joint osteoarthritis. Coracoclavicular distance widened up to 1.3 cm. Visualized ribs and spine intact. SOFT TISSUES: Unremarkable. IMPRESSION: Comminuted fracture of the lateral clavicular head. Coracoclavicular distance widened up to 1.3 cm, possible coracoclavicular ligament injury. THIS IS AN ELECTRONICALLY VERIFIED FINAL REPORT 01/09/2025 3:32 AM - Electronically signed by Deep Quiles M.D. AR: NORA Report ID: [id number] Reading Location: [id number] Procedure Note Deep Quiles MD - 01/09/2025 EXAM DESCRIPTION: XR SHOULDER RIGHT 2 OR MORE VIEWS REASON FOR STUDY: Fall Fall tonight while getting out of bed. Right shoulder pain and deformity.Hx of HTN, Leukemia TECHNIQUE: Internal rotation, external rotation, and Y views of the shoulder. COMPARISON: 06/16/2023 FINDINGS: BONES/JOINTS: Comminuted fracture of the lateral clavicular head. ACjoint remains grossly congruent. Mild glenohumeral and acromioclavicularjoint osteoarthritis. Coracoclavicular distance widened up to 1.3 cm. Visualized ribs and spine intact. SOFT TISSUES: Unremarkable. IMPRESSION: Comminuted fracture of the lateral clavicular head. Coracoclavicular distance widened up to 1.3 cm, possible coracoclavicular ligament injury. THIS IS AN ELECTRONICALLY VERIFIED FINAL REPORT 01/09/2025 3:32 AM - Electronically signed by Deep Quiles M.D. AR: NORA Report ID: [id number] Reading Location: [id number] Flori Dugan MD IMG XR PROCEDURES Final Result * Protime-INR (01/09/2025 3:05 AM CART PUSHER) PT 10.8 9.7 - 13.0 sec [facility] INR 1.00 0.90 - 1.20 [facility] Comment: Interpretive data Oral anticoagulant therapeutic ranges: Venous thromboembolism prophylaxis or treatment: 2.0-3.0 CARDIOLOGY Standard range: 2.0-3.0 High-intensity range: 2.5-3.5 Refer to indication-specific guidelines for appropriate target ranges for prosthetic heart valve replacement. Current interpretive data was last revised on 2019. Blood 01/09/2025 3:05 AM CART PUSHER 01/09/2025 3:08 AM CART PUSHER Flori Dugan MD LAB BLOOD ORDERABLES Final Resul t [facility] Department [place] [address] * CT Head WO Contrast (01/09/2025 2:55 AM CART PUSHER) Anatomical Region Laterality Modality Head and Neck N/A Computed Tomogra phy 01/09/2025 2:59 AM CART PUSHER Narrative 01/09/2025 3:02 AM CART PUSHER EXAM DESCRIPTION: CT HEAD WO CONTRAST REASON FOR STUDY: Head trauma, moderate-severe, Fall Patient fell and struck right shoulder and right side of head. Patient complains of slight headache. TECHNIQUE: Axial images acquired through the brain without intravenous contrast. Images stored on PACS. Automated exposure control was used as a dose optimization technique for this examination. COMPARISON: 11/05/2024 FINDINGS: BRAIN: No mass, hemorrhage, or recent infarct. Normal white matter. Volume within normal limits for age. VASCULAR: No dense vessel or obvious aneurysm. EXTRA-AXIAL SPACES: Mixed attenuation blood products in the right subdural space measuring up to 12 mm in thickness. ORBITS/GLOBES: Unremarkable. SOFT TISSUES: BI-RADS code contusion. BONES/SINUSES: No fracture or lesion. Paranasal sinuses and other skullbase airspaces are clear. IMPRESSION: 12 mm thick mixed attenuation right subdural bleed. No fracture. Scalp contusion. Findings called to Dr. Dugan at the time of interpretation. THIS IS AN ELECTRONICALLY VERIFIED FINAL REPORT 01/09/2025 3:02 AM - Electronically signed by Deep Quiles M.D. AR: NORA Report ID: [id number] Reading Location: [id number] Procedure Note Deep Quiles MD - 01/09/2025 EXAM DESCRIPTION: CT HEAD WO CONTRAST REASON FOR STUDY: Head trauma, moderate-severe, Fall Patient fell and struck right shoulder and right side of head. Patient complains of slight headache. TECHNIQUE: Axial images acquired through the brain without intravenous contrast. Images stored on PACS. Automated exposure control was used asa dose optimization technique for this examination. COMPARISON: 11/05/2024 FINDINGS: BRAIN: No mass, hemorrhage, or recent infarct. Normal white matter. Volume within normal limits for age. VASCULAR: No dense vessel or obvious aneurysm. EXTRA-AXIAL SPACES: Mixed attenuation blood products in the rightsubdural space measuring up to 12 mm in thickness. ORBITS/GLOBES: Unremarkable. SOFT TISSUES: BI-RADS code contusion. BONES/SINUSES: No fracture or lesion. Paranasal sinuses and otherskullbase airspaces are clear. IMPRESSION: 12 mm thick mixed attenuation right subdural bleed. No fracture. Scalp contusion. Findings called to Dr. Dugan at the time of interpretation. THIS IS AN ELECTRONICALLY VERIFIED FINAL REPORT 01/09/2025 3:02 AM - Electronically signed by Deep Quiles M.D. AR: NORA Report ID: [id number] Reading Location: [place] [address] Flori Dugan MD IMG CT PROCEDURES Final Result * POCT glucose (01/09/2025 2:43 AM CART PUSHER) Glucose, POC 139 70 - 199 mg/dL Blood 01/09/2025 2:43 AM CART PUSHER 01/09/2025 2:43 AM CART PUSHER Flori Dugan MD LAB POCT ORDERABLES - DEVICE Fin al Result [facility] [place]) [facility] Department [place] [address] * (ABNORMAL) eGFR (01/09/2025 2:38 AM CART PUSHER) eGFR 40(L) >=60 mL/min/1. 73 m2 Comment: Interpretive Data Reference Interval Normal >/= 90 mL/min/1.73m2 Mildly decreased* 60 - 89 mL/min/1.73m2 Mildly to moderately decreased 45 - 59 mL/min/1.73m2 Moderately to severely decreased 30 - 44 mL/min/1.73m2 Severely decreased 15 - 29 mL/min/1.73m2 Kidney Failure < 15 mL/min/1.73m2 *Relative to young adult level Estimated glomerular filtration rate is determined by the 2020 CKD-EPI equation recommended by the National Kidney Foundation (A Unifying Approach to GFR Estimation: Recommendations of the NKF-ASK Task Force on Reassessing the Inclusion of Race in Diagnosing Kidney Disease, JASN 2020). The CKD-EPI equation should not be used for patients with unstable renal function and has not been validated in children and those over 70. Current interpretive data was last reviewed 2021. Blood 01/09/2025 2:38 AM CART PUSHER 01/09/2025 2:40 AM CART PUSHER us Flori Dugan MD LAB BLOOD ORDERABLES Final Resul t [facility] ([place]) [facility] Department [place] [address] * (ABNORMAL) Differential, auto (01/09/2025 2:38 AM CART PUSHER) Neutrophil abs 4.9 1.5 - 6.5 K/cumm Imm gran abs 0.0 0.0 - 0.1 K/cumm [facility] ([place]) Lymphocyte abs 2.3 0.8 - 3.3 K/cumm [facility] Monocyte abs 0.5 0.2 - 0.8 K/cumm [facility]) Eosinophil abs 0.8(H) 0.0 - 0.5 K/cumm [facility]) Basophil abs 0.1 0.0 - 0.1 K/cumm [facility]) Neutrophil pct 56.5 % [facility] Comment: Interpretive Data Percent cell count reference ranges are not reported, since discordance with absolute values may lead to misinterpretation of CBC data. Current Interpretive Data was last revised on 2018. Imm gran pct 0.3 % [facility] Comment: Interpretive Data Percent cell count reference ranges are not reported, since discordance with absolute values may lead to misinterpretation of CBC data. Current Interpretive Data was last revised on 2018. Lymphocyte pct 26.9 % [facility] Comment: Interpretive Data Percent cell count reference ranges are not reported, since discordance with absolute values may lead to misinterpretation of CBC data. Current Interpretive Data was last revised on 2018. Monocyte pct 5.9 % [facility] Comment: Interpretive Data Percent cell count reference ranges are not reported, since discordance with absolute values may lead to misinterpretation of CBC data. Current Interpretive Data was last revised on 2018. Eosinophil pct 9.7 % [facility] Comment: Interpretive Data Percent cell count reference ranges are not reported, since discordance with absolute values may lead to misinterpretation of CBC data. Current Interpretive Data was last revised on 2018. Basophil pct 0.7 % [facility]) Comment: Interpretive Data Percent cell count reference ranges are not reported, since discordance with absolute values may lead to misinterpretation of CBC data. Current Interpretive Data was last revised on 2018. Blood 01/09/2025 2:38 AM CART PUSHER 01/09/2025 2:40 AM CART PUSHER us Flori Dugan MD LAB BLOOD ORDERABLES Final Resul t [facility] ([place] Department [place] [address] * (ABNORMAL) CBC with auto differential (01/09/2025 2:38 AM CART PUSHER) WBC 8.6 3.8 - 9.9 K/cumm Hgb 9.5(L) 11.9 - 15.5 g/dL [facility] Hct 29.4(L) 35.6 - 45.5 % [facility] Plt 256 150 - 400 K/cumm [facility]) MPV 9.7 9.1 - 12.3 fL [facility] RBC 3.49(L) 3.90 - 5.20 M/cumm [facility] MCV 84.2 81.3 - 96.4 fL [facility] MCH 27.2 27.1 - 33.3 pg [facility] MCHC 32.3 32.3 - 35.7 g/dL [facility] RDW CV 13.2 11.1 - 14.9 % [facility] RDW SD 39.8 35.7 - 48.1 fL [facility] NRBC abs 0.00 0.00 - 0.01 K/cumm [facility]) Blood 01/09/2025 2:38 AM CART PUSHER 01/09/2025 2:40 AM CART PUSHER us Flori Dugan MD LAB BLOOD ORDERABLES Final Resul t [facility] ([place] Department [place] [address] * (ABNORMAL) Comprehensive metabolic panel (01/09/2025 2:38 AM CART PUSHER) Sodium 139 135 - 145 mmol/L Potassium, pl 4.1 3.3 - 4.9 mmol/L [facility] Chloride 106 97 - 110 mmol/L [facility] CO2 22 22 - 32 mmol/L [facility] Anion gap 11 2 - 15 mmol/L [facility] BUN 17 6 - 25 mg/dL [facility]) Creatinine 1.42(H) 0.60 - 1.10 mg/dL [facility] Glucose 143 70 - 199 mg/dL [facility] Comment: Interpretive Data Fasting glucose >/= 126 mg/dl is diagnostic for diabetes. Fasting is defined as no caloric intake for at least 8 hours. Fasting glucose between 100 mg/dl to 125 mg/dl is diagnostic of prediabetes. In a patient with classic symptoms of hyperglycemia or hyperglycemic crisis, a random glucose >/= 200 mg/dl is diagnostic for diabetes. In the absence of unequivocal hyperglycemia, results should be confirmed by repeat testing. The classification and Diagnosis of Diabetes Diabetes Care 2021; 46: S19-S40. Current interpretive data was last revised 2022. Calcium 8.9 8.5 - 10.3 mg/dL [facility] Bilirubin, total <0.2 0.1 - 1.2 mg/dL [facility]) Protein, pl 6.2(L) 6.5 - 8.5 g/dL [facility]) Albumin 3.6 3.5 - 5.0 g/dL [facility] Alk phos 127 40 - 130 Units/L [facility] ALT 11 7 - 45 Units/L [facility]) AST 15 10 - 45 Units/L [facility]) Blood 01/09/2025 2:38 AM CART PUSHER 01/09/2025 2:40 AM CART PUSHER us Flori Dugan MD LAB BLOOD ORDERABLES Final Resul t [facility] ([place] Department [place] [address] from Last 3 Months Insurance [employer] SENIOR SUPPLEMENT MEDICARE MEDICARE T SENIOR SUPPLEMENT MEDICARE [employer] SENIOR SUPPLEMENT Advance Directives For more information, please contact: [phone] * Full Code (Latest Code Status on File) Date Activated Date Inactivated Comments 01/20/2025 3:10 PM 01/26/2025 2:16 AM * Full Code Date Activated Date Inactivated Comments 01/09/2025 6:15 PM 01/15/2025 8:02 PM * Full Code Date Activated Date Inactivated Comments 06/18/2023 8:41 PM 06/21/2023 4:14 PM * Full Code Date Activated Date Inactivated Comments 05/23/2023 7:48 PM 05/25/2023 7:34 PM Care Teams Paper Deliverer Relationship Specialty Start Date End Date Tatum Rice DO PCP - General 05/30/22
--- OUTSIDE RECORDS SUMMARY | 2025-02-28 14:03 | XMS_ITS | Encounter Summary ---
Author Organization [facility] Address [address] [place] [address] Care Team Providers Care Furniture Crater Name Role Phone Tatum Rice DO Primary Care Provider Jazmín San MD Unavailable Tatum Rice DO Unavailable Amie Hickman MD Primary Care Provider [phone] Gautam Carlson MD Unavailable [phone] Encounter Details Date Type Department Care Team (Late st Contact Info) Description 10/19/2022 Telephone [facility] Endocrinology, Diabetes and Metabolism [address] [place] [phone] Perry Leal MD [address] [place] [address] [place] [address] Social History Tobacco Use Types Packs/Day Years Used Date Smoking Tobacco: Never Smokeless Tobacco: Never Alcohol Use Standard Drinks/Week Comments No 0 (1 standard drink = 0.6 oz pur e alcohol) PHQ-2 Answer Date Recorded PHQ2 TOTAL SCORE 0 04/28/2022 Comments No Sex and Gender Information Value Date Recorded Sex Assigned at Not on file Legal Sex Female 2:03 PM CRATE ICER Gender Identity Not on file Sexual Orientation Not on file documented as of this encounter Miscellaneous Notes * Telephone Encounter - Saba Galdamezni - 10/19/2022 3:23 PM CST Pt called and requests lab orders be sent to [facility] ([facility]) so she can get them done prior to the appt for 10/26/22 Ill call her when order is placed to let her know. She will be checking her MyChart if you are able to message her directly. E ICER E ICER documented in this encounter Plan of Treatment Upcoming Encounters Date Type Department Care Team (Late st Contact Info) Description 06/12/2025 1:00 PM CDT Office Visit [facility] - Neurology [facility] [facility], [facility] [place] [address] Rosy Cabrera APRN-COURT MONITOR [address] [place] [address] documented as of this encounter Goals Goal Patient Goal Type Associated Problems Recent Progress Patient-Stated? Author Medication Management General On track( 023 8:39 AM CDT) Ryan Sweeney, FELIZ Note: Expected end date: ongoing Interventions: Take all medications as prescribed Let your doctor know right away about any changes in your medications Make sure to request a refill of your medication at least one week prior to your last dose documented as of this encounter Visit Diagnoses Not on filedocumented in this encounter Care Teams Furniture Crater Relationship Specialty Start Date End Date Tatum Rice DO [address] [place] [address] [address] DIV [place] [address] PCP - General 01/06/21 12/12/23 Amie Hickman MD [address] [place] [address] DIV OF INT MED [address] [place] [phone] PCP - General Internal Medicine 08/27/24 Jazmín San MD [address] [place] [phone] Resident - PCP Student Resident 06/18/21 08/26/24 Tatum Rice DO [address] OF [facility] [place] [phone] Physician Internal Medicine 12/28/23 Gautam Carlson MD [address] [facility] [address] [place] [id number] Hematology and Oncology 11/27/24 documented as of this encounter
--- OUTSIDE RECORDS SUMMARY | 2025-02-28 14:03 | XMS_ITS ---
Author Organization [facility] Address [address] [place] [address] Care Team Providers Care Dredging Inspector Name Role Phone Tatum Rice Primary Care Provider Active Problems Problem Noted Date Diagnosed Date Subdural hematoma 01/20/2025 PAD (peripheral artery disease) 01/13/2025 Assessment & Plan (01/13/2025 10:52 AM MOTOR VEHICLES INSPECTOR): - 01/07 Patient underwent L DIGITAL SALES DIRECTOR/Stenting of the proximal PT, Dr. Mark Oscar Cardiology - On ASA, prescribed plavix postprocedurally - next procedure scheduled for 02/11 and carotid US scheduled. - 01/10 Plavix resumed Discharge planning issues 01/13/2025 Assessment & Plan (01/14/2025 12:08 PM MOTOR VEHICLES INSPECTOR): 01/09 admitted 3/ remain in OU with Q2 hour neuro checks 01/14: Patient is medically stable for discharge, SW/CM updated. Discharge pending facility bed availability Treatment noted done 01/14 [x] Fracture of right clavicle 01/10/2025 Assessment & Plan (01/13/2025 10:41 AM MOTOR VEHICLES INSPECTOR): - b/l clavicle Xrays: shortening of left [...] on 02/[address] Campos located at [facility] Acute traumatic pain 01/10/2025 Assessment & Plan (01/13/2025 10:30 AM MOTOR VEHICLES INSPECTOR): - Tylenol 650mg q6h - Gabapentin 300mg BID - Lidocaine patch - Robaxin 500mg TID - Oxycodone 5mg q4h PRN SDH (subdural hematoma) 01/09/2025 Assessment & Plan (01/14/2025 11:58 AM MOTOR VEHICLES INSPECTOR): SDH with Left Midline shift 3mm - [...] consult - PM&R consult 01/10 plavix resumed 01/12 NSGY Recs: Plavix started on 01/10. Exam has been stable. Head CTs have been reassuring. 3/4 Neuro exams liberalized, Transferred to the floor. - Outpatient follow up tasked with NSGY in 4 weeks with a repeat Head CT Fall, initial encounter 06/18/2023 Syncope and collapse 05/23/2023 Depression 10/05/2022 Assessment & Plan (01/13/2025 10:58 AM MOTOR VEHICLES INSPECTOR): - Continue home cymbalta 60 mg daily Diabetes mellitus 10/05/2022 Assessment & Plan (01/13/2025 10:37 AM MOTOR VEHICLES INSPECTOR): - Home regimen: Lantus 25units HS + FIASP (Insulin Aspart) 6units TID w/meals 3/3 A1c 6.9 -SSI Lispro high slide -Lantus 8 Qhs and Lispro 6 ac -monitor glucose adjust as needed Knee pain, left 10/05/2022 Hypothyroidism 08/24/2022 Assessment & Plan (01/10/2025 10:16 AM MOTOR VEHICLES INSPECTOR): - Continue Levothyroxine 50mcg daily Osteopenia 06/01/2022 Left hand fracture, closed, initial encounter Abrasion of left elbow 05/30/2022 Sprain of left knee 05/30/2022 Fall, accidental, initial encounter 05/30/2022 Assessment & Plan (01/14/2025 12:05 PM MOTOR VEHICLES INSPECTOR): - CT H/C spine from OSH with 12 mm R SDH - CXR, pelvis XR negative - CT T/L spine negative - CT CAP negative - R clavicular fx - Trauma labs grossly normal - 01/09 Carotid duplex: No hemodynamically significant stenosis in the common carotid artery bilaterally. Seizures 03/08/2022 Assessment & Plan (01/13/2025 10:43 AM MOTOR VEHICLES INSPECTOR): Chronic Home Keppra 500 mg bid Iron [...] 10/13/2015 Assessment & Plan (01/14/2025 12:05 PM MOTOR VEHICLES INSPECTOR): Home med - Metoprolol 25 mg BID, carvedilol 12.5 BID, atorvastatin 80 mg daily - Continue Coreg 12.5mg BID Hyperlipidemia 10/13/2015 Assessment & Plan (01/10/2025 10:16 AM MOTOR VEHICLES INSPECTOR): - Continue Atorvastatin 80mg HS Anxiety disorder 02/11/2013 Assessment & Plan (01/13/2025 10:34 AM MOTOR VEHICLES INSPECTOR): - Continue Duloxetine 60mg daily 01/13 resume Clonazepam 0.5mg BID for anxiety Obstructive sleep apnea 02/11/2013 Type 2 diabetes mellitus without complications 0 02/11/2013 Chronic myeloid leukemia, BC R/ABL-positive, not having achieved remission 04/18/2012 Assessment & Plan (01/13/2025 10:57 AM MOTOR VEHICLES INSPECTOR): #CML - On asciminib Current Treatment and Therapy Plans No current plan information found. Past Treatment and Therapy Plans No past plan information found. Lifetime Dose Tracking * Chemical Lifetime Dose Automatic Entry Manual Entr y Fluoro Time 21.1 minutes 21.1 minutes 0 minutes Air kerma at the reference point (Ka,r) 630 mGy 6 30 mGy 0 mGy DLP 8,582 mGycm 8,582 mGycm 0 mGycm
--- OUTSIDE RECORDS SUMMARY | 2025-02-28 14:03 | XMS_ITS | Encounter Summary ---
Author Organization [facility] Address [address] [place] [address] Care Team Providers Care Case Managers Name Role Phone Rasheed Rebolledo DO Unavailable Unavailable Rasheed Rebolledo DO Primary Care Provider Unavail able Tatum Rice DO Primary Care Provider Jazmín San MD Unavailable Tatum Rice DO Unavailable [phone] Amie Hickman MD Primary Care Provider [phone] Gautam Carlson MD Unavailable [phone] Reason for Visit * Reason Onset Date Comments MEDICATION REFILL 09/04/2019 MEDICATION REFILL 09/30/2019 MEDICATION REFILL 12/17/2019 Encounter Details Date Type Department Care Team (Late [facility]) Description 09/04/2019 Refill [facility] General Internal Medicine [address] [address] Rasheed Rebolledo, Need updated address MEDICATION REFILL; MEDICATION REFILL; MEDICATION REFILL Social History Tobacco Use Types Packs/Day Years Used Date Smoking Tobacco: Never Smokeless Tobacco: Never Alcohol Use Standard Drinks/Week Comments No 0 (1 standard drink = 0.6 oz pur e alcohol) Comments No Sex and Gender Information Value Date Recorded Sex Assigned at Not on file Legal Sex Female 2:03 PM PORTABLE TRACK CREW CHIEF Gender Identity Not on file Sexual Orientation Not on file documented as of this encounter Miscellaneous Notes * Telephone Encounter - Ebonie Zamudio - 09/04/2019 6:31 PM CDT Refill request sent per protocol to provider SARTHAK:08/14/19 NOV:11/27/19 documented in this encounter Plan of Treatment Upcoming Encounters Date Type Department Care Team (Late st Contact Info) Description 06/12/2025 1:00 PM CDT Office Visit [facility] - Neurology [address] [facility] [place] [address] Rosy Cabrera APRN-CARD HAND [address] [place] [address] documented as of this encounter Visit Diagnoses Diagnosis Type 2 diabetes mellitus without complication, without long-term current use of insulin (HCC) documented in this encounter Care Teams Case Managers Relationship Specialty Start Date End Date Rasheed Rebolledo DO PCP - General 07/04/19 01/05/21 Tatum Rice DO [address] DIV OF [facility] [place] [phone] PCP - General 01/06/21 12/12/23 Amie Hickman MD [address] [facility] OF [address] [phone] PCP - General Internal Medicine 08/27/24 Rasheed Rebolledo DO Resident - PCP Student Resident 07/04/19 06/17/21 Jazmín San MD [address] [facility] [place] [phone] Resident - PCP Student Resident 06/18/21 08/26/24 Tatum Rice DO [address] [facility] [address] DIV [place] [address] Physician Internal Medicine 12/28/23 Gautam Carlson MD [address] [facility] [address] [place] [address] Hematology and Oncology 11/27/24 documented as of this encounter
--- OUTSIDE RECORDS SUMMARY | 2025-02-28 14:03 | XMS_ITS | Clinical Summary ---
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 was also reviewed. The risks and benefits of the procedure and the sedation options and risks were discussed with the patient. All questions were answered, and informed consent was obtained. Prior Anticoagulants: The patient has taken no previous anticoagulant or antiplatelet agents except for NSAID medication. ASA Grade Assessment: III - A patient with severe systemic disease. After reviewing the risks and benefits, the patient was deemed in satisfactory condition to undergo the procedure. After I obtained informed consent, the scope was passed under direct vision. Throughout the procedure, the patient's blood pressure, pulse, and oxygen saturations were monitored continuously. The [id number] was introduced through the anus and advanced to the terminal ileum, with identification of the appendiceal orifice and IC valve. The colonoscopy was performed without difficulty. The patient tolerated the procedure well. The quality of the bowel preparation was evaluated using the BBPS (Nedrow Bowel Preparation Scale) with scores of: Right Colon = 3 (entire mucosa seen well with no residual staining, small fragments of stool or opaque liquid), Transverse Colon = 3 (entire mucosa seen well with no residual staining, small fragments of stool or opaque liquid) and Left Colon = 2 (minor amount of residual staining, small fragments of stool and/or opaque liquid, but mucosa seen well). The total BBPS score equals 8. The quality of the bowel preparation was good. The terminal ileum, ileocecal valve, appendiceal orifice, and rectum were photographed. Findings: A 10 mm polyp was found in the proximal ascending colon. The polyp was sessile. The polyp was removed with a lift and cut technique using a hot snare. Resection and retrieval were complete. A 12 mm polyp was found in the mid ascending colon. The polyp was sessile. The polyp was removed with a saline injection-lift technique but this did not stay lifted and was removed with jumbo forceps. Resection and retrieval were complete. To prevent bleeding post-intervention , one hemostatic clip was successfully placed (MR conditional). There was no bleeding at the end of the procedure. A 2 mm polyp was found in the mid descending colon. The polyp was sessile. The polyp was removed with a jumbo cold forceps. Resection and retrieval were complete. A few small-mouthed diverticula were found in the sigmoid colon. Non-bleeding external hemorrhoids were found during retroflexion. The hemorrhoids were medium-sized and Grade I (internal hemorrhoids that do not prolapse). Estimated Blood Loss: Estimated blood loss was minimal. Complications: No immediate complications. Impression: - One 12 mm polyp in the proximal ascending colon, removed using lift and cut and a hot snare. Resected and retrieved. - One 10 mm polyp in the mid ascending colon, removed using injection-lift and jumbo forceps. Resected and retrieved. Clip (MR conditional) was placed. - One 2 mm polyp in the mid descending colon, removed with a jumbo cold forceps. Resected and retrieved. All specimens placed in the same jar. - Minimal diverticulosis in the sigmoid colon. - Non-bleeding external hemorrhoids. Recommendation: - Patient has a contact number available for emergencies. The signs and symptoms of potential delayed complications were discussed with the patient. Return to normal activities tomorrow. Written discharge instructions were provided to the patient. - Resume previous diet. - Continue present medications. - Await pathology results. - Repeat colonoscopy is recommended. The colonoscopy date will be determined after pathology results from today's exam become available for review. - Return to referring physician as previously scheduled. Attending Participation: I personally performed the entire procedure. Procedure Code(s): --- Professional --- 30730, Colonoscopy, flexible; with removal of tumor(s), polyp(s), or other lesion(s) by snare technique 19409, Colonoscopy, flexible; with directed submucosal injection(s), any substance 34606, 59, Colonoscopy, flexible; with biopsy, single or multiple Diagnosis Code(s): --- Professional --- Z86.010, Personal history of colonic polyps K63.5, Polyp of colon K64.0, First degree hemorrhoids K64.4, Residual hemorrhoidal skin tags K57.30, Diverticulosis of large intestine without perforation or abscess without bleeding CPT copyright 2019 [employer]. All rights reserved. The codes documented in this report are preliminary and upon inside phone sales review may be revised to meet current compliance requirements. Laura Hi MD 06/01/2021 9:37:14 AM This report has been signed electronically. Note Initiated On: 06/01/2021 8:30 AM Number of Addenda: [address] [id number] [facility] 06/01/2021 8:30 AM CDT Laura Hi MD GI PROCEDURE ORDERABLES Edited Result - Final [facility] * BONE DENSITY AXIAL SKELETON(1OR MORE SITES)[id number] (02/05/2021 2:32 PM CDT) Anatomical Region Laterality Modality Other 02/05/2021 2:57 PM CDT Narrative 02/05/2021 4:13 PM CDT Examination: Dual energy x-ray absorptiometry of the lumbar spine and hip. Clinical Indication: Z13.820: Screening for osteoporosis Findings: Detailed data from the exam is sent separately to the ordering physician and is also available on [employer], the Radiology Department's computerized picture archive system. Patient's height 65 in; weight 160 lb. SUMMARY: No prior study available for comparison. BONE MINERAL DENSITY (BMD) lumbar spine (L1-4): Normal; T-score 1.8 BONE MINERAL DENSITY (BMD) left femoral neck: Normal; T-score 0.2 FRAX 10 year fracture risk was not reported because all T score, of hip total, femoral neck and total spine at or above -1.0. Definitions: T-score = Standard Deviation Normal: A value for bone mineral density(BMD) within 1 standard deviation of the young adult reference mean. (T-score above -1) Low bone mass(osteopenia): A value for bone mineral density(BMD) more than 1 standard deviation below the young adult mean, but less than 2.5 standard deviations below the young adult mean. ( T-score between -1 and -2.5) Osteoporosis: A value for bone mineral density 2.5 standard deviations or more below the young adult mean. ( T-score at or below -2.5) Severe osteoporosis: Osteoporosis + the presence of one or more fragility fractures. Please note that T-score values are important in determining increased risk for fractures. The T-score represents the standard deviation above or below the mean bone mineral density for young adults. With each -1 standard deviation decrease in bone mineral density, the risk for fracture doubles exponentially. A T-score of -1 will double the risk , and -2 will be 4 times the risk. As a rule of thumb, a T-score of -1 to -2.5 indicates increasing degrees of osteopenia. This report was approved by Rajesh Llamas on 02/05/2021 2:59 PM . IDr. ADRIANA D.O. have personally reviewed and interpreted this examination/study. This report was electronically signed by ADRIANA FERNANDES D.O. on 02/05/2021 4:13 PM . Procedure Note Adriana Fernandes, - 02/05/2021 Examination: Dual energy x-ray absorptiometry of the lumbar spine andhip. Clinical Indication: Z13.820: Screening for osteoporosis Findings: Detailed data from the exam is sent separately to the ordering physician and is also available on [employer], the Radiology Department's computerized picture archive system. Patient's height 65 in; weight 160 lb. SUMMARY: No prior study available for comparison. BONE MINERAL DENSITY (BMD) lumbar spine (L1-4): Normal; T-score 1.8 BONE MINERAL DENSITY (BMD) left femoral neck: Normal; T-score 0.2 FRAX 10 year fracture risk was not reported because all T score, of hip total, femoral neck and total spine at or above -1.0. Definitions: T-score = Standard Deviation Normal: A value for bone mineral density(BMD) within 1 standarddeviation of the young adult reference mean. (T-score above -1) Low bone mass(osteopenia): A value for bone mineral density(BMD) morethan 1 standard deviation below the young adult mean, but less than 2.5 standard deviations below the young adult mean. ( T-score between -1 and -2.5) Osteoporosis: A value for bone mineral density 2.5 standard deviationsor more below the young adult mean. ( T-score at or below -2.5) Severe osteoporosis: Osteoporosis + the presence of one or morefragility fractures. Please note that T-score values are important in determining increased risk for fractures. The T-score represents the standard deviation aboveor below the mean bone mineral density for young adults. With each -1 standard deviation decrease in bone mineral density, the risk forfracture doubles exponentially. A T-score of -1 will double the risk , and -2will be 4 times the risk. As a rule of thumb, a T-score of -1 to -2.5indicates increasing degrees of osteopenia. This report was approved by Rajesh Llamas on 02/05/2021 2:59 PM . IDr. ADRIANA D.O. have personally reviewed and interpreted this examination/study. This report was electronically signed by ADRIANA FERNANDES D.O. on02/05/2021 4:13 PM . us Tatum Rice DO DEXA ORDERABLES Final Result * NM 3 COMP FOOT EXAM COMPLETED (Automatically Completed) (03/08/2018) Impressions Vielka Cox MD - 03/08/2018 Please see foot exam in progress note us Vielka Cox MD NM - PROFESSIONAL SERVICES Final Result * HEPATITIS C ANTIBODY (08/21/2012 1:42 PM CDT) Hepatitis C Antibody NONREACTIVE NONREACTIVE [facility] Comment: Anti-HCV screen indicates no serologic evidence of past or current infection with Hepatitis C Virus. Patients with unexplained liver disease who are immunocompromised or suspected of having acute Hepatitis C infection may benefit from Nucleic Acid Test (ROCIO) for Hepatitis C Viral RNA to confirm Hepatitis C status. 08/21/2012 1:42 PM CDT 08/21/2012 2:11 PM CDT us Gautam Carlson MD LAB - CHEMISTRY ORDERABLES Final Result [address] [phone] from Last 3 Months or Most Recently Relevant to Health Maintenance Insurance MEDICARE MEDICARE [employer] Care Teams General Production Manager Relationship Specialty Start Date End Date Amie Hickman MD [address] [facility] DIV OF [facility] MED [address] [place] [phone] PCP - General Internal Medicine 08/27/24 Tatum Rice DO [address] [facility] [address] DIV OF [facility] [place] [phone] Physician Internal Medicine 12/28/23 Gautam Carlson MD [address] [place] [address] Hematology and Oncology 11/27/24
--- OUTSIDE RECORDS SUMMARY | 2025-02-28 14:03 | XMS_ITS ---
Author Organization [facility] Address [address] [place] [address] Care Team Providers Care Warranty Coordinator Name Role Phone Tatum Rice DO Unavailable [phone] Amie Hickman MD Primary Care Provider [phone] Gautam Carlson MD Unavailable [phone] Active Problems * This document contains information received from the source organization and may not represent a complete record from that organization. Problem Noted Date Diagnosed Date Abnormal renal [...] R/ABL-positive, not having achieved remission 04/18/2012 Hypothyroidism Current Treatment and Therapy Plans No current plan information found. Past Treatment and Therapy Plans Lifetime Dose Tracking * Chemical Lifetime Dose Automatic Entry Manual Entr y Dose Length Product 1,959 mGy-cm 1,959 mGy-cm 0 mGy-cm Resolved Problems Problem Noted Date Diagnosed Date [...]
--- OUTSIDE RECORDS SUMMARY | 2025-02-28 14:03 | XMS_ITS | Encounter Summary ---
Author Organization [facility] Address 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 [address] [place] [address] [place] [address] [facility] [address] [place] [address] documented as of this encounter Visit Diagnoses Not on filedocumented in this encounter Care Teams Mailroom Manager Relationship Specialty Start Date End Date Tatum Rice DO [address] DIV OF [place] [address] PCP - General Internal Medicine 2/20/25 documented as of this encounter
--- OUTSIDE RECORDS SUMMARY | 2025-02-28 14:03 | XMS_ITS | Referral Summary ---
Author Organization [facility] Address [address] [place] [address] Care Team Providers Care Fibrous Wallboard Inspector Name Role Phone Tatum Rice Primary Care Provider Encounters Date Type Department Care Team Description 02/19/2025 Telephone [facility] Orth[facility]edic Surgery [address] [place] [address] 6th [place] [address] [place] [phone] Mable Campos MD 02/19/2025 Results Follow-Up [facility] Emergency Department 1 [place] [address] Graham Macdonald RN 02/19/2025 10:45 AM CDT - 02/19/2025 5:21 PM CDT Emergency [facility] Emergency Department [address] [place] [address] Trae Mtz MD Safa, Rawan Ahmad, MD Lightheadedness (Primary Dx); Vasovagal near syncope; History of subdural hematoma Discharge Disposition: Discharge to home or self care 02/17/2025 Orders Only [facility] Neurosurgery [address] [place] [address] Floor 1, [address] [place] [phone] Bernardo Lorenz MD Subdural hematoma (HCC) (Primary Dx) 02/14/2025 Telephone [facility] Neuro[facility] [address] [place] [address] Floor 1, [address] [place] [address] Diamond Manley, FELIZ 02/14/2025 3:30 PM CDT Telemedicine [facility] Floor 1, [address] [place] [phone] Bernardo Lorenz MD Subdural hematoma (HCC) (Primary Dx) 02/14/2025 8:53 AM CDT - 02/14/2025 11:59 PM CDT Hospital Encounter [facility] - [place] [address] [facility] Floor [address] [place] [address] SDH (subdural hematoma) (HCC) Discharge Disposition: Discharge to home or self care 01/27/2025 Orders Only [facility] [address] [place] [address] Floor 1, [address] [place] [phone] Bernardo Lorenz MD Subdural hematoma (HCC) (Primary Dx) 01/20/2025 12:11 PM CDT - 01/25/2025 10:05 PM CDT Hospital Encounter [address] [phone] Lonnie Laguna MD Patel, Bhuvic, MD Subdural hematoma (HCC) (Primary Dx); Transient alteration of awareness Discharge Disposition: Discharge to an Rehab facility 01/20/2025 6:40 PM CDT Anesthesia Event [facility] Operating Room [address] [place] [phone] Ricky Hendrickson MD PhD Freeman Portillo MD 01/20/2025 7:00 PM CDT - 01/20/2025 9:40 PM CDT Surgery [facility] Operating Room [address] [place] [address] Bernardo Lorenz MD CODY HOLES/EVACUATION OR DRAINAGE EXTRADURAL/SUBDURAL HEMATOMA 01/16/2025 Orders Only [facility] Floor 1, [address] [place] [phone] Avril Fontenot NP SDH (subdural hematoma) (HCC) (Primary Dx) 01/09/2025 4:54 AM INVESTIGATIVE AGENT - 01/15/2025 3:57 PM INVESTIGATIVE AGENT Hospital Encounter [address] [phone] Jeff Slaughter MD Kipfer, DO Stacia Plata Sanford Scott, MD Knight, Caleb Daniel, MD SDH (subdural hematoma) (HCC) (Primary Dx) Discharge Disposition: Discharge to an IP Rehab facility 01/10/2025 8:00 AM INVESTIGATIVE AGENT Ancillary Procedure [facility] IP 1 [facility] [address] [place] [address] 01/09/2025 2:05 AM INVESTIGATIVE AGENT - 01/09/2025 11:59 PM INVESTIGATIVE AGENT Hospital Encounter [facility] Emergency, Room R Discharge Disposition: Discharge to home or self care 01/09/2025 4:50 AM INVESTIGATIVE AGENT - 01/09/2025 11:59 PM INVESTIGATIVE AGENT Hospital Encounter [facility] Emergency, Room R Discharge Disposition: Discharge to home or self care 01/09/2025 Orders Only [facility] Neuro Interventional Radiology 1 [place] [address] Aaliyah Alvarez, RN 01/09/2025 Orders Only [facility] Radiology [address] [place] [phone] Otto Alvarez, FELIZ 01/09/2025 2:24 AM INVESTIGATIVE AGENT - 01/09/2025 4:20 AM [facility] Emergency [facility] Emergency Department 1 [place] [address] Flori Dugan MD Subdural hemorrhage (HCC) (Primary Dx); Closed displaced fracture of acromial end of right clavicle, initial encounter Discharge Disposition: Discharge to not defined facility from Last 3 Months Allergies Active Allergy Reactions Criticality Noted Date [...] 1 tablet (50 mcg total) by mouth wood filler before breakfast 2 Active gabapentin (NEURONTIN) 300 [...] mg total) by mouth daily 5 01/27/20 26 Active lidocaine (LIDODERM) 5 % Place 2 patches on the skin daily Remove & discard patch within 12 hours or as directed by 5 Active Active Problems Problem Noted Date Diagnosed Date Subdural hematoma 01/20/2025 PAD (peripheral artery disease) 01/13/2025 Assessment & Plan (01/13/2025 10:52 AM INVESTIGATIVE AGENT): - 01/07 Patient underwent L INTERNSHIP/Stenting of the proximal PT, Dr. Mark Oscar Cardiology - On ASA, prescribed plavix postprocedurally - next procedure scheduled for 02/11 and carotid US scheduled. - 01/10 Plavix resumed Discharge planning issues 01/13/2025 Assessment & Plan (01/14/2025 12:08 PM INVESTIGATIVE AGENT): 01/09 admitted 01/13 remain in [facility] with Q2 hour neuro checks 01/14: Patient is medically stable for discharge, SW/CM updated. Discharge pending facility bed availability Treatment noted done 01/14 [x] Fracture of right clavicle 01/10/2025 Assessment & Plan (01/13/2025 10:41 AM INVESTIGATIVE AGENT): - b/l clavicle Xrays: shortening of left [...] on 02/[address] Campos located at [facility] Acute traumatic pain 01/10/2025 Assessment & Plan (01/13/2025 10:30 AM INVESTIGATIVE AGENT): - Tylenol 650mg q6h - Gabapentin 300mg BID - Lidocaine patch - Robaxin 500mg TID - Oxycodone 5mg q4h PRN SDH (subdural hematoma) 01/09/2025 Assessment & Plan (01/14/2025 11:58 AM INVESTIGATIVE AGENT): SDH with Left Midline shift 3mm - [...] been stable. Head CTs have been reassuring. 01/14 Neuro exams liberalized, Transferred to the floor. - Outpatient follow up tasked with NSGY in 4 weeks with a repeat Head CT Fall, initial encounter 06/18/2023 Syncope and collapse 05/23/2023 Depression 10/05/2022 Assessment & Plan (01/13/2025 10:58 AM INVESTIGATIVE AGENT): - Continue home cymbalta 60 mg daily Diabetes mellitus 10/05/2022 Assessment & Plan (01/13/2025 10:37 AM INVESTIGATIVE AGENT): - Home regimen: Lantus 25units HS + FIASP (Insulin Aspart) 6units TID w/meals 01/13 A1c 6.9 -SSI Lispro high slide -Lantus 8 Qhs and Lispro 6 ac -monitor glucose adjust as needed Knee pain, left 10/05/2022 Hypothyroidism 08/24/2022 Assessment & Plan (01/10/2025 10:16 AM INVESTIGATIVE AGENT): - Continue Levothyroxine 50mcg daily Osteopenia 06/01/2022 Left hand fracture, closed, initial encounter Abrasion of left elbow 05/30/2022 Sprain of left knee 05/30/2022 Fall, accidental, initial encounter 05/30/2022 Assessment & Plan (01/14/2025 12:05 PM INVESTIGATIVE AGENT): - CT H/C spine from OSH with 12 mm R SDH - CXR, pelvis XR negative - CT T/L spine negative - CT CAP negative - R clavicular fx - Trauma labs grossly normal - 01/09 Carotid duplex: No hemodynamically significant stenosis in the common carotid artery bilaterally. Seizures 03/08/2022 Assessment & Plan (01/13/2025 10:43 AM INVESTIGATIVE AGENT): Chronic Home Keppra 500 mg bid Iron [...] 10/13/2015 Assessment & Plan (01/14/2025 12:05 PM INVESTIGATIVE AGENT): Home med - Metoprolol 25 mg BID, carvedilol 12.5 BID, atorvastatin 80 mg daily - Continue Coreg 12.5mg BID Hyperlipidemia 10/13/2015 Assessment & Plan (01/10/2025 10:16 AM INVESTIGATIVE AGENT): - Continue Atorvastatin 80mg HS Anxiety disorder 02/11/2013 Assessment & Plan (01/13/2025 10:34 AM INVESTIGATIVE AGENT): - Continue Duloxetine 60mg daily 01/13 resume Clonazepam 0.5mg BID for anxiety Obstructive sleep apnea 02/11/2013 Type 2 diabetes mellitus without complications 0 02/11/2013 Chronic myeloid leukemia, BC R/ABL-positive, not having achieved remission 04/18/2012 Assessment & Plan (01/13/2025 10:57 AM INVESTIGATIVE AGENT): #CML - On asciminib Social History Tobacco Use Types Packs/Day Years Used Date Smoking Tobacco: Never Smokeless Tobacco: Never Alcohol Use Standard Drinks/Week Comments Not Currently 0 (1 standard drink = 0.6 oz pur e alcohol) [facility] Utilities Answer Date Recorded In the past 12 months has th e electric, gas, oil, or water company threatened to shut off services in your [...] often do you attend chur ch or sikhism services? More than 4 times per year 01/22/2025 Do you belong to any clubs o r organizations such as scientologist groups, unions, fraternal or athletic groups, or [...] place to sleep or slept in a prison (including now)? No 06/20/2023 PHQ-9 Answer Date [...] any time in the past 12 m [facility], were you homeless or living in a prison (including now)? No 01/22/2025 Personal Safety Answer [...] on file Legal Sex Female 7:59 PM INVESTIGATIVE AGENT Gender Identity Not on file Sexual Orientation [...] 02/19/2025 10:26 AM CDT Plan of Treatment Not on file Procedures Procedure Name Priority Date/Time Associated Diagnosis [...] ED Urgent/IP Urgent 01/20/2025 8:23 PM CDT AK AN PROCEDURE PLACEHOLDER Routine 01/20/2025 7:17 PM CDT AK AN ELECTIVE ENDOTRACHEAL AIRWAY Routine 01/20/2025 7:17 [...] DEVICE Routine 01/20/2025 3 :10 PM CDT AK CRITICAL CARE ILL/INJURED PATIENT INIT 30-74 MIN [...] GLUCOSE DEVICE Routine 01/15/2025 1 2:04 PM INVESTIGATIVE AGENT HEMOGLOBIN AND HEMATOCRIT STAT 01/15/2025 10:11 AM INVESTIGATIVE AGENT POCT GLUCOSE DEVICE Routine 01/15/2025 8 :01 AM INVESTIGATIVE AGENT POCT GLUCOSE DEVICE Routine 01/14/2025 8 :17 PM INVESTIGATIVE AGENT POCT GLUCOSE DEVICE Routine 01/14/2025 5 :13 PM INVESTIGATIVE AGENT POCT GLUCOSE DEVICE Routine 01/14/2025 1 1:37 AM INVESTIGATIVE AGENT POCT GLUCOSE DEVICE Routine 01/14/2025 7 :35 AM INVESTIGATIVE AGENT POCT GLUCOSE DEVICE Routine 01/13/2025 8 :35 PM INVESTIGATIVE AGENT POCT GLUCOSE DEVICE Routine 01/13/2025 4 :55 PM INVESTIGATIVE AGENT POCT GLUCOSE DEVICE Routine 01/13/2025 1 1:14 AM INVESTIGATIVE AGENT HEMOGLOBIN A1C Routine 01/13/2025 8:30 AM INVESTIGATIVE AGENT POCT GLUCOSE DEVICE Routine 01/13/2025 7 :31 AM INVESTIGATIVE AGENT POCT GLUCOSE DEVICE Routine 01/12/2025 1 1:[address] HEAD WO CONTRAST ED Urgent/IP Urgent 01/12/2025 11:33 PM INVESTIGATIVE AGENT POCT GLUCOSE DEVICE Routine 01/12/2025 9 :56 PM INVESTIGATIVE AGENT POCT GLUCOSE DEVICE Routine 01/12/2025 5 :12 PM INVESTIGATIVE AGENT POCT GLUCOSE DEVICE Routine 01/12/2025 1 1:36 AM INVESTIGATIVE AGENT POCT GLUCOSE DEVICE Routine 01/12/2025 8 :11 AM INVESTIGATIVE AGENT EGFR Routine 01/11/2025 9:49 PM INVESTIGATIVE AGENT PHOSPHORUS Routine 01/11/2025 9:49 PM INVESTIGATIVE AGENT MAGNESIUM Routine 01/11/2025 9:49 PM INVESTIGATIVE AGENT CBC WITHOUT DIFFERENTIAL Routine 01/11/2025 9:49 PM INVESTIGATIVE AGENT BASIC METABOLIC PANEL Routine 01/11/2025 9:49 PM INVESTIGATIVE AGENT POCT GLUCOSE DEVICE Routine 01/11/2025 8 :43 PM INVESTIGATIVE AGENT POCT GLUCOSE DEVICE Routine 01/11/2025 6 :46 PM INVESTIGATIVE AGENT CRITICAL CARE Routine 01/11/2025 2:33 PM INVESTIGATIVE AGENT SDH (subdural hematoma) (HCC) POCT GLUCOSE DEVICE Routine 01/11/2025 1 1:42 AM INVESTIGATIVE AGENT POCT GLUCOSE DEVICE Routine 01/11/2025 6 :54 AM INVESTIGATIVE AGENT POCT GLUCOSE DEVICE Routine 01/11/2025 3 :02 AM INVESTIGATIVE AGENT POCT GLUCOSE DEVICE Routine 01/10/2025 1 1:09 PM INVESTIGATIVE AGENT EGFR Routine 01/10/2025 8:56 PM INVESTIGATIVE AGENT MAGNESIUM Routine 01/10/2025 8:56 PM INVESTIGATIVE AGENT PHOSPHORUS Routine 01/10/2025 8:56 PM INVESTIGATIVE AGENT CBC WITHOUT DIFFERENTIAL Routine 01/10/2025 8:56 PM INVESTIGATIVE AGENT BASIC METABOLIC PANEL Routine 01/10/2025 8:56 PM INVESTIGATIVE AGENT POCT GLUCOSE DEVICE Routine 01/10/2025 7 :00 PM INVESTIGATIVE AGENT CRITICAL CARE Routine 01/10/2025 6:00 PM INVESTIGATIVE AGENT SDH (subdural hematoma) (HCC) POCT GLUCOSE DEVICE Routine 01/10/2025 3 :[address] HEAD WO CONTRAST ED Urgent/IP Urgent 01/10/2025 2:09 PM INVESTIGATIVE AGENT US CAROTIDS DUPLEX BILATERAL ED Urgent/IP Urgent 01/10/2025 11:28 AM INVESTIGATIVE AGENT POCT GLUCOSE DEVICE Routine 01/10/2025 1 1:02 AM INVESTIGATIVE AGENT TRANSTHORACIC ECHO (TTE) COMPLETE W DOPPLER/CF W CONTRAST STAT 01/10/2025 8:25 AM INVESTIGATIVE AGENT CRITICAL CARE Routine 01/10/2025 8:10 AM INVESTIGATIVE AGENT SDH (subdural hematoma) (HCC) POCT GLUCOSE DEVICE Routine 01/10/2025 6 :53 AM INVESTIGATIVE AGENT POCT GLUCOSE DEVICE Routine 01/10/2025 2 :59 AM INVESTIGATIVE AGENT POCT GLUCOSE DEVICE Routine 01/09/2025 1 1:08 PM INVESTIGATIVE AGENT POCT GLUCOSE DEVICE Routine 01/09/2025 7 :25 PM INVESTIGATIVE AGENT EGFR STAT 01/09/2025 6:30 PM INVESTIGATIVE AGENT LACTATE, WHOLE BLOOD STAT 01/09/2025 6:30 PM INVESTIGATIVE AGENT CBC WITHOUT DIFFERENTIAL STAT 01/09/2025 6:30 PM INVESTIGATIVE AGENT PHOSPHORUS STAT 01/09/2025 6:30 PM INVESTIGATIVE AGENT MAGNESIUM STAT 01/09/2025 6:30 PM INVESTIGATIVE AGENT COMPREHENSIVE METABOLIC PANEL STAT 01/09/2025 6:30 PM INVESTIGATIVE AGENT POCT GLUCOSE DEVICE Routine 01/09/2025 6 :16 PM INVESTIGATIVE AGENT CRITICAL CARE Routine 01/09/2025 6:00 PM INVESTIGATIVE AGENT DIRECT ANTIGLOBULIN TEST Routine 01/09/2025 2:51 PM INVESTIGATIVE AGENT POCT GLUCOSE DEVICE Routine 01/09/2025 2 :26 PM INVESTIGATIVE AGENT TRANSFUSION REACTION EVALUATION STAT 01/09/2025 2:24 PM INVESTIGATIVE AGENT TRANSFUSION REACTION IMMEDIATE STAT 01/09/2025 2:24 PM INVESTIGATIVE AGENT TYPE AND SCREEN STAT 01/09/2025 2:24 PM INVESTIGATIVE AGENT ANGIO SELECTIVE CAROTID ACCURACY EXPERT RIGHT ED Urgent/IP Urgent 01/09/2025 1:27 PM INVESTIGATIVE AGENT TRANSFUSE PLATELETS Timed 01/09/2025 1 0:32 AM INVESTIGATIVE AGENT URINALYSIS AND REFLEX TO MICROSCOPIC AND CULTURE STAT 01/09/2025 10:[address] HEAD WO CONTRAST Timed 01/09/2025 9 :17 AM INVESTIGATIVE AGENT TRANSFUSE PLATELETS Timed 01/09/2025 8 :52 AM INVESTIGATIVE AGENT AK CRITICAL CARE ILL/INJURED PATIENT INIT 30-74 MIN Routine 01/09/2025 7:50 AM INVESTIGATIVE AGENT TROPONIN I HIGH-SENSITIVITY 2-HOUR Timed 01/09/2025 6:47 AM INVESTIGATIVE AGENT B CHECK SAMPLE STAT 01/09/2025 6:39 AM INVESTIGATIVE AGENT XR CLAVICLE BILATERAL COMPLETE ED 01/09/2025 6:15 AM INVESTIGATIVE AGENT ECG 12-LEAD Routine 01/09/2025 5:[address] RECON THORACIC AND LUMBAR SPINE W CONTRAST ED 01/09/2025 5:[address] CHEST ABDOMEN PELVIS W CONTRAST ED 01/09/2025 5:49 AM INVESTIGATIVE AGENT PREPARE PLATELETS Timed 01/09/2025 5:1 8 AM INVESTIGATIVE AGENT DIFFERENTIAL AUTO STAT 01/09/2025 5:1 2 AM INVESTIGATIVE AGENT CBC WITH AUTO DIFFERENTIAL STAT 01/09/2025 5:12 AM INVESTIGATIVE AGENT TROPONIN I HIGH-SENSITIVITY SERIES (BASELINE, 2HR, 4HR, 6HR) STAT 01/09/2025 5:12 AM INVESTIGATIVE AGENT TYPE AND SCREEN STAT 01/09/2025 5:12 AM INVESTIGATIVE AGENT RESPIRATORY PATHOGEN PANEL STAT 01/09/2025 5:12 AM INVESTIGATIVE AGENT XR PELVIS 1 OR 2 VIEWS ED 01/09/2025 5:[address] CERVICAL SPINE WO CONTRAST ED 01/09/2025 3:42 AM INVESTIGATIVE AGENT AK CRITICAL CARE ILL/INJURED PATIENT INIT 30-74 MIN Routine 01/09/2025 3:41 AM INVESTIGATIVE AGENT XR CHEST 1 VIEW ED 01/09/2025 3:08 AM INVESTIGATIVE AGENT XR SHOULDER RIGHT 2 OR MORE VIEWS ED 01/09/2025 3:08 AM INVESTIGATIVE AGENT PROTIME-INR STAT 01/09/2025 3:[address] HEAD WO CONTRAST ED 01/09/2025 2 :55 AM INVESTIGATIVE AGENT POCT GLUCOSE DEVICE Routine 01/09/2025 2 :43 AM INVESTIGATIVE AGENT EGFR STAT 01/09/2025 2:38 AM INVESTIGATIVE AGENT DIFFERENTIAL AUTO STAT 01/09/2025 2:3 8 AM INVESTIGATIVE AGENT COMPREHENSIVE METABOLIC PANEL STAT 01/09/2025 2:38 AM INVESTIGATIVE AGENT CBC WITH AUTO DIFFERENTIAL STAT 01/09/2025 2:38 AM INVESTIGATIVE AGENT from Last 3 Months Results * POCT glucose (02/19/2025 1:56 PM CDT) Glucose, POC 97 70 - 199 mg/dL Blood 02/19/2025 1:56 PM CDT 02/19/2025 1:56 PM CDT us Trae Mtz MD LAB POCT ORDERABLES - DEV ICE Final Result [facility] Department [place] [address] * Troponin I high-sensitivity 2-hour (02/19/2025 1:07 PM CDT) Trop I hs <4 <=17 ng/L Comment: Interpretive Data For further hscTnI resources including the diagnostic algorithm and an aid in interpretation, copy and paste this link: https://bjhlab.testcatalog.org/show/hsTrop-1 Current Interpretive Data last revised 2020. Trop I hs delta 0 ng/L DARINEL CUBA Trop I hs interp Insignificant DARINEL Scott Blood 02/19/2025 1:07 PM CDT 02/19/2025 1:14 PM CDT Result [facility] Steven Babcock Jr., MD LAB BLOOD ORDERABLES F inal Result Performing Organization Address [facility] Co de Phone Number [facility] [employer] [address] * (ABNORMAL) aPTT (02/19/2025 1:07 PM CDT) aPTT 21(L) 28 - 38 sec Comment: Interpretive Data Heparin therapeutic range: 66.0 - 100.0 seconds. Range based on correlation with therapeutic heparin activity range of 0.3 - 0.7 Units/mL. Current interpretive data was last revised on 2023. Blood 02/19/2025 1:07 PM CDT 02/19/2025 1:17 PM CDT Result [facility] Steven Babcock Jr., MD LAB BLOOD ORDERABLES F inal Result Performing Organization Address [facility] [place] [address] * Protime-INR (02/19/2025 1:07 PM CDT) PT 11.3 9.7 - 13.0 sec INR 1.05 0.90 - 1.20 [facility] Comment: Interpretive data Oral anticoagulant therapeutic ranges: Venous thromboembolism prophylaxis or treatment: 2.0-3.0 CARDIOLOGY Standard range: 2.0-3.0 High-intensity range: 2.5-3.5 Refer to indication-specific guidelines for appropriate target ranges for prosthetic heart valve replacement. Current interpretive data was last revised on 2019. Blood 02/19/2025 1:07 PM CDT 02/19/2025 1:17 PM CDT Result [facility] Steven Babcock Jr., MD LAB BLOOD ORDERABLES F inal Result [facility] Department [place] [address] * CT Head WO Contrast (02/19/2025 11:47 [...] Fracisco Sears M.D. Steven Babcock Jr., MD IM CT PROCEDURES Aracelis l Result * Troponin I high-sensitivity series (baseline, 2hr, 4hr, 6hr) (02/19/2025 11:34 AM CDT) Trop I hs <4 <=17 ng/L Comment: Interpretive Data For further hscTnI resources including the diagnostic algorithm and an aid in interpretation, copy and paste this link: https://bjhlab.testcatalog.org/show/hsTrop-1 Current Interpretive Data last revised 2020. Blood 02/19/2025 11:3 4 AM CDT 02/19/2025 11:40 AM CDT us Stevne Babcock Jr., MD LAB BLOOD ORDERABLES F inal Result Performing Organization Address [facility] Co de Phone Number [facility] Department [place] [address] * (ABNORMAL) eGFR (02/19/2025 11:34 AM CDT) [...] BLOOD ORDERABLES Final Result Performing Organization Address City/[facility]/ZIP Co de Phone Number DARINEL [facility] Department [place] [address] * (ABNORMAL) Differential, auto (02/19/2025 11:34 AM CDT) Neutrophil abs 5.31 1.50 - 6.50 K/cumm Imm gran abs 0.02 0.00 - 0.10 K/cumm [facility] Lymphocyte abs 3.37(H) 0.80 - 3.30 K/cumm [facility] Monocyte abs 0.54 0.20 - 0.80 K/cumm [facility] Eosinophil abs 1.06(H) 0.00 - 0.50 K/cumm [facility] Basophil abs 0.08 0.00 - 0.10 K/cumm [facility] Neutrophil pct 51.1 % [facility] Comment: Interpretive Data Percent cell count reference ranges are not reported, since discordance with absolute values may lead to misinterpretation of CBC data. Current Interpretive Data was last revised on 2018. Imm gran pct 0.2 % [facility] Comment: Interpretive Data Percent cell count reference ranges are not reported, since discordance with absolute values may lead to misinterpretation of CBC data. Current Interpretive Data was last revised on 2018. Lymphocyte pct 32.5 % [facility] Comment: Interpretive Data Percent cell count reference ranges are not reported, since discordance with absolute values may lead to misinterpretation of CBC data. Current Interpretive Data was last revised on 2018. Monocyte pct 5.2 % [facility] Comment: Interpretive Data Percent cell count reference ranges are not reported, since discordance with absolute values may lead to misinterpretation of CBC data. Current Interpretive Data was last revised on 2018. Eosinophil pct 10.2 % [facility] Comment: Interpretive Data Percent cell count reference ranges are not reported, since discordance with absolute values may lead to misinterpretation of CBC data. Current Interpretive Data was last revised on 2018. Basophil pct 0.8 % [facility] Comment: Interpretive Data Percent cell count reference ranges are not reported, since discordance with absolute values may lead to misinterpretation of CBC data. Current Interpretive Data was last revised on 2018. Blood 02/19/2025 11:3 4 AM CDT 02/19/2025 11:40 AM CDT us Ryan Zamora MD LAB BLOOD ORDERABLES Final Result [facility] Department [place] [address] * (ABNORMAL) CBC with auto differential (02/19/2025 11:34 AM CDT) [facility] WBC 10.38(H) 3.80 - 9.90 K/cumm Hgb 11.2(L) 11.9 - 15.5 g/dL [facility] Hct 34.4(L) 35.6 - 45.5 % [facility] Plt 234 150 - 400 K/cumm [facility] MPV 9.8 9.1 - 12.3 fL [facility] RBC 4.11 3.90 - 5.20 M/cumm [facility] MCV 83.7 81.3 - 96.4 fL [facility] MCH 27.3 27.1 - 33.3 pg [facility] MCHC 32.6 32.3 - 35.7 g/dL [facility] RDW CV 13.7 11.1 - 14.9 % [facility] RDW SD 42.1 35.7 - 48.1 fL [facility] NRBC abs 0.00 0.00 - 0.01 K/cumm [facility] Blood 02/19/2025 11:3 4 AM CDT 02/19/2025 11:40 AM CDT us Trae Mtz MD LAB BLOOD ORDERABLES Aracelis l Result [facility] Department [place] [address] * (ABNORMAL) Comprehensive metabolic panel (02/19/2025 11:34 AM CDT) [facility] Sodium 140 135 - 145 mmol/L Potassium, pl 4.7 3.3 - 4.9 mmol/L [facility] Chloride 105 97 - 110 mmol/L [facility] CO2 24 22 - 32 mmol/L [facility] Anion gap 11 2 - 15 mmol/L [facility] BUN 32(H) 6 - 25 mg/dL [facility] Creatinine 1.39(H) 0.60 - 1.10 mg/dL [facility] Glucose 166 70 - 199 mg/dL [facility] Comment: Interpretive Data Fasting glucose >/= [...] 2022. Calcium 10.1 8.5 - 10.3 mg/dL [facility] Bilirubin, total 0.3 0.1 - 1.2 mg/dL [facility] Protein, pl 7.3 6.5 - 8.5 g/dL [facility] Albumin 4.0 3.5 - 5.0 g/dL [facility] Alk phos 158(H) 40 - 130 Units/L [facility] ALT 31 7 - 45 Units/L [facility] AST 19 10 - 45 Units/L [facility] Blood 02/19/2025 11:3 4 AM CDT 02/19/2025 11:40 AM CDT us Trae Mtz MD LAB BLOOD ORDERABLES Aracelis l Result [facility] Department [place] [address] * POCT glucose (02/19/2025 11:12 AM CDT) [facility] Glucose, POC 176 70 - 199 mg/dL Blood 02/19/2025 11:1 2 AM CDT 02/19/2025 11:12 AM CDT us Trae Mtz MD LAB POCT ORDERABLES - DEV ICE Final Result [facility] Department [place] [address] * POCT glucose (02/19/2025 10:29 AM CDT) Glucose, POC 184 70 - 199 mg/dL Blood 02/19/2025 10:2 9 AM CDT 02/19/2025 10:29 AM CDT us Notinfile Unknown LAB POCT ORDERABLES - DEVICE F inal Result Performing Organization Address [facility] de Phone Number [facility] [place] [address] * (ABNORMAL) POCT glucose (02/19/2025 10:04 AM CDT) Glucose, POC 205(H) 70 - 199 mg/dL Blood 02/19/2025 10:0 4 AM CDT 02/19/2025 10:04 AM CDT us Mable Campos MD LAB POCT ORDERABLES - JAGJIT CE Final Result Performing Organization Address [facility] de Phone Number [facility] Department [place] [address] * CT Head WO Contrast (02/14/2025 9:07 [...] signed by: Adam Camargo MD Avril Fontenot CENTER DIRECTOR LEAD TEACHER IMG CT PROCEDURES Final Re sult * POCT glucose (01/25/2025 8:45 PM CDT) Glucose, POC 161 70 - 199 mg/dL Blood 01/25/2025 8:45 PM CDT 01/25/2025 8:45 PM CDT Bernardo Lorenz MD LAB POCT ORDERABLES - DEVICE Fin al Result Performing Organization Address [facility] Co de Phone Number [facility] [employer] [address] * POCT glucose (01/25/2025 12:01 PM CDT) Glucose, POC 189 70 - 199 mg/dL Blood 01/25/2025 12:0 1 PM CDT 01/25/2025 12:01 PM CDT Bernardo Lorenz MD LAB POCT ORDERABLES - DEVICE Fin al Result Performing Organization Address [facility] Co de Phone Number [facility] [place] [employer] [address] * POCT glucose (01/25/2025 7:57 AM CDT) [facility] Signature Glucose, POC 121 70 - 199 mg/dL Blood 01/25/2025 7:57 AM CDT 01/25/2025 7:57 AM CDT Bernardo Lorenz MD LAB POCT ORDERABLES - DEVICE Fin al Result Performing Organization Address [facility] Co de Phone Number [facility] [place] [employer] [address] * (ABNORMAL) eGFR (01/24/2025 9:18 PM CDT) [facility] eGFR 41(L) >=60 mL/min/1. 73 m2 Comment: [...] NP LAB BLOOD ORDERABLES F inal Result [facility] Department [place] [address] * (ABNORMAL) CBC without differential (01/24/2025 9:18 PM CDT) [facility] WBC 11.5(H) 3.8 - 9.9 K/cumm Hgb 9.2(L) 11.9 - 15.5 g/dL [facility] Hct 28.2(L) 35.6 - 45.5 % [facility] Plt 369 150 - 400 K/cumm [facility] MPV 9.3 9.1 - 12.3 fL [facility] RBC 3.38(L) 3.90 - 5.20 M/cumm [facility] MCV 83.4 81.3 - 96.4 fL [facility] MCH 27.2 27.1 - 33.3 pg [facility] MCHC 32.6 32.3 - 35.7 g/dL [facility] RDW CV 13.7 11.1 - 14.9 % [facility] RDW SD 41.4 35.7 - 48.1 fL [facility] NRBC abs 0.00 0.00 - 0.01 K/cumm [facility] Blood 01/24/2025 9:18 PM CDT 01/24/2025 9:33 PM CDT us Wendy Menjivar NP LAB BLOOD ORDERABLES F inal Result [facility] Department [place] [address] * (ABNORMAL) Basic metabolic panel (01/24/2025 9:18 PM CDT) Sodium 134(L) 135 - 145 mmol/L Potassium, pl 4.8 3.3 - 4.9 mmol/L [facility] Chloride 100 97 - 110 mmol/L [facility] CO2 23 22 - 32 mmol/L [facility] Anion gap 11 2 - 15 mmol/L [facility] BUN 38(H) 6 - 25 mg/dL [facility] Creatinine 1.39(H) 0.60 - 1.10 mg/dL [facility] Glucose 185 70 - 199 mg/dL [facility] Comment: Interpretive Data Fasting glucose >/= [...] 2022. Calcium 9.2 8.5 - 10.3 mg/dL [facility] Blood 01/24/2025 9:18 PM CDT 01/24/2025 9:32 PM CDT Wendy Menjivar NP LAB BLOOD ORDERABLES F inal Result Performing Organization Address [facility] Co de Phone Number [facility] [place] [address] * (ABNORMAL) POCT glucose (01/24/2025 9:06 PM CDT) Glucose, POC 206(H) 70 - 199 mg/dL Blood 01/24/2025 9:06 PM CDT 01/24/2025 9:06 PM CDT Bernardo Lorenz MD LAB POCT ORDERABLES - DEVICE Fin al Result Performing Organization Address [facility] de Phone Number [facility] [place] [address] * POCT glucose (01/24/2025 6:55 PM CDT) Glucose, POC 132 70 - 199 mg/dL Blood 01/24/2025 6:55 PM CDT 01/24/2025 6:55 PM CDT Bernardo Lorenz MD LAB POCT ORDERABLES - DEVICE Fin al Result Performing Organization Address [facility] Co de Phone Number [facility] [place] [employer] [address] * POCT glucose (01/24/2025 5:45 PM CDT) Glucose, POC 178 70 - 199 mg/dL Blood 01/24/2025 5:45 PM CDT 01/24/2025 5:45 PM CDT Bernardo Lorenz MD LAB POCT ORDERABLES - DEVICE Fin al Result Performing Organization Address [facility] Co de Phone Number [facility] Department [place] [address] * (ABNORMAL) POCT glucose (01/24/2025 12:31 PM CDT) Glucose, POC 228(H) 70 - 199 mg/dL Blood 01/24/2025 12:3 1 PM CDT 01/24/2025 12:31 PM CDT Bernardo Lorenz MD LAB POCT ORDERABLES - DEVICE Fin al Result Performing Organization Address [facility] Co de Phone Number [facility] Department [place] [address] * (ABNORMAL) POCT glucose (01/24/2025 8:07 AM CDT) Glucose, POC 210(H) 70 - 199 mg/dL Blood 01/24/2025 8:07 AM CDT 01/24/2025 8:07 AM CDT Bernardo Lorenz MD LAB POCT ORDERABLES - DEVICE Fin al Result Performing Organization Address [facility] Co de Phone Number [facility] Department [place] [address] * (ABNORMAL) eGFR (01/23/2025 9:27 PM CDT) [...] NP LAB BLOOD ORDERABLES F inal Result [facility] [place] [address] * (ABNORMAL) CBC without differential (01/23/2025 9:27 PM CDT) WBC 11.0(H) 3.8 - 9.9 K/cumm Hgb 10.5(L) 11.9 - 15.5 g/dL [facility] Hct 32.7(L) 35.6 - 45.5 % [facility] Plt 427(H) 150 - 400 K/cumm [facility] MPV 9.3 9.1 - 12.3 fL [facility] RBC 3.90 3.90 - 5.20 M/cumm [facility] MCV 83.8 81.3 - 96.4 fL [facility] MCH 26.9(L) 27.1 - 33.3 pg [facility] MCHC 32.1(L) 32.3 - 35.7 g/dL [facility] RDW CV 13.8 11.1 - 14.9 % [facility] RDW SD 42.3 35.7 - 48.1 fL [facility] NRBC abs 0.00 0.00 - 0.01 K/cumm [facility] Blood 01/23/2025 9:27 PM CDT 01/23/2025 9:48 PM CDT us Wendy Menjivar NP LAB BLOOD ORDERABLES F inal Result [facility] Department [place] [address] * (ABNORMAL) Basic metabolic panel (01/23/2025 9:27 PM CDT) [facility] Sodium 138 135 - 145 mmol/L Potassium, pl 4.4 3.3 - 4.9 mmol/L [facility] Chloride 101 97 - 110 mmol/L [facility] CO2 24 22 - 32 mmol/L [facility] Anion gap 13 2 - 15 mmol/L [facility] BUN 30(H) 6 - 25 mg/dL [facility] Creatinine 1.25(H) 0.60 - 1.10 mg/dL [facility] Glucose 193 70 - 199 mg/dL [facility] Comment: Interpretive Data Fasting glucose >/= [...] 2022. Calcium 9.6 8.5 - 10.3 mg/dL [facility] Blood 01/23/2025 9:27 PM CDT 01/23/2025 9:48 PM CDT Wendy Menjivar NP LAB BLOOD ORDERABLES F inal Result [facility] [place] [address] * (ABNORMAL) POCT glucose (01/23/2025 9:18 PM CDT) Glucose, POC 224(H) 70 - 199 mg/dL Blood 01/23/2025 9:18 PM CDT 01/23/2025 9:18 PM CDT Bernardo Lorenz MD LAB POCT ORDERABLES - DEVICE Fin al Result Performing Organization Address [facility] de Phone Number [facility] [place] [employer] [address] * POCT glucose (01/23/2025 5:11 PM CDT) Glucose, POC 164 70 - 199 mg/dL Blood 01/23/2025 5:11 PM CDT 01/23/2025 5:11 PM CDT Result [facility] Bernardo Lorenz MD LAB POCT ORDERABLES - DEVICE Fin al Result Performing Organization Address [facility] de Phone Number [facility] [place] [employer] [address] * POCT glucose (01/23/2025 12:38 PM CDT) Glucose, POC 162 70 - 199 mg/dL Blood 01/23/2025 12:3 8 PM CDT 01/23/2025 12:38 PM CDT Result [facility] Bernardo Lorenz MD LAB POCT ORDERABLES - DEVICE Fin al Result Performing Organization Address [facility] de Phone Number [facility] [place] [employer] [address] * POCT glucose (01/23/2025 7:35 AM CDT) Glucose, POC 160 70 - 199 mg/dL Blood 01/23/2025 7:35 AM CDT 01/23/2025 7:35 AM CDT us Bernardo Lorenz MD LAB POCT ORDERABLES - DEVICE Fin al Result [facility] [place] [address] * Potassium, whole blood (01/23/2025 12:25 AM CDT) Potassium, bld 3.9 3.3 - 4.9 mmol/L Blood 01/23/2025 12:2 5 AM CDT 01/23/2025 12:36 AM CDT Paul Terrazas NP LAB BLOOD ORDERABLES Final Re sult Performing Organization Address City/[facility] Co de Phone Number [facility] Department [place] [address] * (ABNORMAL) eGFR (01/22/2025 9:13 PM CDT) [...] 9:13 PM CDT 01/22/2025 9:36 PM CDT Wendy Menjivar NP LAB BLOOD ORDERABLES F inal Result Performing Organization Address [facility] Co de Phone Number [facility] Department [place] [address] * (ABNORMAL) CBC without differential (01/22/2025 9:13 PM CDT) Pathologist [facility] WBC 11.0(H) 3.8 - 9.9 K/cumm Hgb 10.0(L) 11.9 - 15.5 g/dL [facility] Hct 30.5(L) 35.6 - 45.5 % [facility] Plt 423(H) 150 - 400 K/cumm [facility] MPV 9.6 9.1 - 12.3 fL [facility] RBC 3.64(L) 3.90 - 5.20 M/cumm [facility] MCV 83.8 81.3 - 96.4 fL [facility] MCH 27.5 27.1 - 33.3 pg [facility] MCHC 32.8 32.3 - 35.7 g/dL [facility] RDW CV 13.5 11.1 - 14.9 % [facility] RDW SD 41.2 35.7 - 48.1 fL [facility] NRBC abs 0.00 0.00 - 0.01 K/cumm [facility] Blood 01/22/2025 9:13 PM CDT 01/22/2025 9:40 PM CDT Wendy Menjivar NP LAB BLOOD ORDERABLES F inal Result Performing Organization Address City/[facility]/ZIP Co de Phone Number [facility] Department [place] [address] * (ABNORMAL) Basic metabolic panel (01/22/2025 9:13 PM CDT) Pathologist [facility] Sodium 141 135 - 145 mmol/L Potassium, pl 4.6 3.3 - 4.9 mmol/L [facility] Comment:Hemolyzed; Potassium value may be falsely elevated by as much as 0.6-1.0 mmol/L. Suggest redraw and reanalysis. Chloride 99 97 - 110 mmol/L [facility] CO2 23 22 - 32 mmol/L [facility] Anion gap 19(H) 2 - 15 mmol/L [facility] BUN 25 6 - 25 mg/dL [facility] Creatinine 1.20(H) 0.60 - 1.10 mg/dL [facility] Glucose 172 70 - 199 mg/dL [facility] Comment: Interpretive Data Fasting glucose >/= [...] 2022. Calcium 9.2 8.5 - 10.3 mg/dL [facility] Blood 01/22/2025 9:13 PM CDT 01/22/2025 9:36 PM CDT us Wendy Menjivar NP LAB BLOOD ORDERABLES F inal Result Performing Organization Address City/[facility]/ZIP Co de Phone Number [facility] Department [place] [address] * POCT glucose (01/22/2025 9:12 PM CDT) [facility] Signature Glucose, POC 189 70 - 199 mg/dL Blood 01/22/2025 9:12 PM CDT 01/22/2025 9:12 PM CDT us Bernardo Lorenz MD LAB POCT ORDERABLES - DEVICE Fin al Result Performing Organization Address City/[facility]/ZIP Co de Phone Number [facility] Department [place] [address] * POCT glucose (01/22/2025 5:08 PM CDT) Glucose, POC 164 70 - 199 mg/dL Blood 01/22/2025 5:08 PM CDT 01/22/2025 5:08 PM CDT Bernardo Lorenz MD LAB POCT ORDERABLES - DEVICE Fin al Result Performing Organization Address [facility] [place] [address] * POCT glucose (01/22/2025 11:26 AM CDT) Glucose, POC 174 70 - 199 mg/dL Blood 01/22/2025 11:2 6 AM CDT 01/22/2025 11:26 AM CDT Bernardo Lorenz MD LAB POCT ORDERABLES - DEVICE Fin al Result Performing Organization Address [facility] [place] [address] * Continuous Video EEG (01/22/2025 10:52 AM CDT) Anatomical Region Laterality Modality EEG Narrative 01/22/2025 4:39 PM CDT Video-EEG Report Patient Name: Nupur Ramirez [facility] Medical Record Number (MRN): [id number] [facility] Record: [id number] Date of (): 1955 EEG Date: 01/20/2025 [...] digital EEG were recorded continuously with a [employer] EEG acquisition system. This was a 32 [...] conform with his/her intent. Signing Attending: Ham Aleman MD Bernardo Lorenz MD NEUROLOGY ORDERABLES Final Resul t * ECG 12 lead (01/22/2025 9:05 AM CDT) Ventricular Rate EKG/Min 74 BPM [facility] Atrial Rate 74 BPM [facility] AK-Interval (MSEC) 144 ms [facility] QRS-Interval (MSEC) 84 ms [facility] QT-Interval (MSEC) 408 ms [facility] QTc 452 ms [facility] P [place] 29 degrees [facility] R [place] 59 degrees [facility] T [place] 60 degrees [facility] Diagnosis Normal sinus rhythm Nonspecific T wave abnormality Abnormal ECG Confirmed by Ame DECKER, Seble ([id number]) on 01/23/2025 9:03:45 AM [facility] 01/22/2025 9:05 AM CDT 01/23/2025 9:03 AM CDT Bernardo Lorenz MD ECG ORDERABLES Final Result [facility] * POCT glucose (01/22/2025 7:48 AM CDT) Glucose, POC 134 70 - 199 mg/dL Blood 01/22/2025 7:48 AM CDT 01/22/2025 7:48 AM CDT Bernardo Lorenz MD LAB POCT ORDERABLES - DEVICE Fin al Result Performing Organization Address [facility] Co de Phone Number [facility] [place] [address] * Potassium, whole blood (01/22/2025 6:27 AM CDT) Potassium, bld 4.1 3.3 - 4.9 mmol/L Blood 01/22/2025 6:27 AM CDT 01/22/2025 6:45 AM CDT Bernardo Lorenz MD LAB BLOOD ORDERABLES Final Resul t Performing Organization Address [facility] de Phone Number [facility] [place] [employer] [address] * POCT glucose (01/22/2025 6:19 AM CDT) Glucose, POC 142 70 - 199 mg/dL Blood 01/22/2025 6:19 AM CDT 01/22/2025 6:19 AM CDT Bernardo Lorenz MD LAB POCT ORDERABLES - DEVICE Fin al Result Performing Organization Address City/[facility] de Phone Number [facility] [place] [employer] [address] * CT Head WO Contrast (01/22/2025 4:45 [...] Electronically signed by: Werner Zepeda M.D, PHD [facility] MD [facility] CT PROCEDURES Final Result * (ABNORMAL) eGFR [...] ORDERABLES F inal Result Performing Organization Address City/State/[facility] Co de Phone Number [facility] Department [place] [address] * (ABNORMAL) Iron profile w/ IBC (01/22/2025 12:30 AM CDT) Iron 32(L) 35 - 145 mcg/dL TIBC See Comment 250 - 400 mcg/dL [facility] Comment:Unable to calculate Transferrin saturation See Comment 20 - 50 % [facility] Comment:Unable to calculate Blood 01/22/2025 12:3 0 AM CDT 01/22/2025 1:12 AM CDT us Bernardo Lorenz MD LAB BLOOD ORDERABLES Final Resul t [facility] Department [place] [address] * (ABNORMAL) CBC without differential (01/22/2025 12:30 AM CDT) Pathologist [facility] WBC 10.0(H) 3.8 - 9.9 K/cumm Hgb 10.2(L) 11.9 - 15.5 g/dL [facility] Hct 30.2(L) 35.6 - 45.5 % [facility] Plt 453(H) 150 - 400 K/cumm [facility] MPV 9.7 9.1 - 12.3 fL [facility] RBC 3.72(L) 3.90 - 5.20 M/cumm [facility] MCV 81.2(L) 81.3 - 96.4 fL [facility] MCH 27.4 27.1 - 33.3 pg [facility] MCHC 33.8 32.3 - 35.7 g/dL [facility] RDW CV 13.8 11.1 - 14.9 % [facility] RDW SD 40.3 35.7 - 48.1 fL [facility] NRBC abs 0.00 0.00 - 0.01 K/cumm [facility] Blood 01/22/2025 12:3 0 AM CDT 01/22/2025 1:13 AM CDT Wendy Menjivar NP LAB BLOOD ORDERABLES F inal Result [facility] [place] [address] * Phosphorus (01/22/2025 12:30 AM CDT) Pathologist [facility] Phosphorus, pl 3.7 2.3 - 4.5 mg/dL Blood 01/22/2025 12:3 0 AM CDT 01/22/2025 1:12 AM CDT us Wendy Menjivar NP LAB BLOOD ORDERABLES F inal Result Performing Organization Address [facility] Co de Phone Number [facility] [place] [employer] [address] * Magnesium (01/22/2025 12:30 AM CDT) [facility] Magnesium 2.0 1.4 - 2.5 mg/dL Blood 01/22/2025 12:3 0 AM CDT 01/22/2025 1:12 AM CDT Bernardo Lorenz MD LAB BLOOD ORDERABLES Final Resul t Performing Organization Address [facility] de Phone Number [facility] [place] [address] * Folate (01/22/2025 12:30 AM CDT) [facility] Folic acid See Comment >=5.0 ng/mL Comment:Credited; Hemolyzed Specimen Blood 01/22/2025 12:3 0 AM CDT 01/22/2025 1:12 AM CDT Bernardo Lorenz MD LAB BLOOD ORDERABLES Final Resul t Performing Organization Address [facility] Co de Phone Number [facility] [place] [address] * Basic metabolic panel (01/22/2025 12:30 AM CDT) [facility] Sodium 142 135 - 145 mmol/L Potassium, pl 4.1 3.3 - 4.9 mmol/L [facility] Comment:Hemolyzed; Potassium value may be falsely elevated by as much as 0.3-0.5 mmol/L. Suggest redraw and reanalysis. Chloride 107 97 - 110 mmol/L [facility] CO2 23 22 - 32 mmol/L [facility] Anion gap 12 2 - 15 mmol/L [facility] BUN 23 6 - 25 mg/dL [facility] Creatinine 1.08 0.60 - 1.10 mg/dL [facility] Glucose 113 70 - 199 mg/dL [facility] Comment: Interpretive Data Fasting glucose >/= [...] 2022. Calcium 9.0 8.5 - 10.3 mg/dL [facility] Blood 01/22/2025 12:3 0 AM CDT 01/22/2025 1:12 AM CDT Wendy Menjivar NP LAB BLOOD ORDERABLES F inal Result [facility] [place] [address] * POCT glucose (01/21/2025 9:07 PM CDT) Glucose, POC 158 70 - 199 mg/dL Blood 01/21/2025 9:07 PM CDT 01/21/2025 9:07 PM CDT Bernardo Lorenz MD LAB POCT ORDERABLES - DEVICE Fin al Result [facility] [place] [address] * POCT glucose (01/21/2025 5:56 PM CDT) Glucose, POC 145 70 - 199 mg/dL Blood 01/21/2025 5:56 PM CDT 01/21/2025 5:56 PM CDT Bernardo Lorenz MD LAB POCT ORDERABLES - DEVICE Fin al Result Performing Organization Address [facility] de Phone Number [facility] [place] [address] * POCT glucose (01/21/2025 12:00 PM CDT) Glucose, POC 128 70 - 199 mg/dL Blood 01/21/2025 12:0 0 PM CDT 01/21/2025 12:00 PM CDT Bernardo Lorenz MD LAB POCT ORDERABLES - DEVICE Fin al Result Performing Organization Address [facility] de Phone Number [facility] [place] [address] * POCT glucose (01/21/2025 5:29 AM CDT) Glucose, POC 132 70 - 199 mg/dL Blood 01/21/2025 5:29 AM CDT 01/21/2025 5:29 AM CDT Bernardo Lorenz MD LAB POCT ORDERABLES - DEVICE Fin al Result Performing Organization Address [facility] de Phone Number [facility] [place] [employer] [address] * (ABNORMAL) eGFR (01/21/2025 4:49 AM CDT) [...] ORDERABLES Final Resul t Performing Organization Address City/[facility]/ZIP Co de Phone Number [facility] Department [place] [address] * Magnesium (01/21/2025 4:49 AM CDT) Pathologist [facility] Magnesium 1.6 1.4 - 2.5 mg/dL Blood 01/21/2025 4:49 AM CDT 01/21/2025 5:05 AM CDT Bernardo Lorenz MD LAB BLOOD ORDERABLES Final Resul t [facility] [place] [address] * (ABNORMAL) Basic metabolic panel (01/21/2025 4:49 AM CDT) Sodium 144 135 - 145 mmol/L Potassium, pl 4.6 3.3 - 4.9 mmol/L [facility] Chloride 106 97 - 110 mmol/L [facility] CO2 27 22 - 32 mmol/L [facility] Anion gap 11 2 - 15 mmol/L [facility] BUN 27(H) 6 - 25 mg/dL [facility] Creatinine 1.04 0.60 - 1.10 mg/dL [facility] Glucose 111 70 - 199 mg/dL [facility] Comment: Interpretive Data Fasting glucose >/= [...] 2022. Calcium 9.4 8.5 - 10.3 mg/dL [facility] Blood 01/21/2025 4:49 AM CDT 01/21/2025 5:05 AM CDT us Bernardo Lorenz MD LAB BLOOD ORDERABLES Final Resul t [facility] [place] [address] * CT Head WO Contrast (01/21/2025 3:49 [...] - DEVICE Fin al Result [facility] One [facility] Department [place] [address] * (ABNORMAL) Fentanyl Confirmation, Urine (01/20/2025 8:32 PM CDT) Fentanyl Conf, Ur Does Not Confirm Cutoff 0.3ng/mL Acetylfentanyl Conf, Ur Does Not Confirm Cutoff 1 ng/mL [facility] Acrylfentanyl Conf, Ur Does Not Confirm Cutoff 1 ng/mL [facility] Furanylfentanyl Conf, Ur Does Not Confirm Cutoff 1 ng/mL [facility] Fentanyl Metabolite (Norfentanyl) Conf, Ur Confirmed Positive(A) CutOff 5 ng/mL [facility] Xylazine MS Does Not Confirm Cutoff 1 ng/mL [facility] Comment: Interpretive Data This test detects the presence or absence of drug compounds using LC Tandem mass spectrometry and is not intended to assess compliance with prescribed medications. While this test is highly specific, false positive and false negative results may occur in very rare circumstances. Contact the laboratory for consultation, if needed. Performance characteristics were determined by the [facility] in a manner consistent with CLIA requirement and has not been cleared or approved by the U.S. Food and Drug Administration. Current interpretive data was last revised 2021. Urine 01/20/2025 8:32 PM CDT 01/20/2025 11:26 PM CDT Eli Brennan CENTER DIRECTOR LEAD TEACHER LAB URINE ORDERABLES Final Result [facility] Department [place] [address] * (ABNORMAL) Drugs of Abuse Screen, Urine with Reflex Confirmation (01/20/2025 8:32 PM CDT) [facility] Amphetamine, ur Not Detected CutOff 500ng/mL [...] ur Not Detected CutOff 200ng/mL DUCJOVANNI [facility] Comment: Interpretive Data - Barbiturates: Samples containing greater than 200 ng/mL secobarbital or other cross-reacting barbiturate compounds are reported as positive. False positive and false negative results are possible. Confirmatory testing required for definitive results. Current Interpretive Data was last reviewed 2023. Benzodiazepines, ur Not Detected CutOff 100ng/mL [facility] Comment: Interpretive Data - Benzodiazepines: Samples containing [...] 2023. Cocaine, ur Not Detected CutOff 150ng/mL CERNER [facility] Comment: Interpretive Data - Cocaine: Samples containing greater than 150 ng/mL benzoylecgonine or other cross- reacting compounds are reported as positive. False positive and false negative results are possible. Confirmatory testing required for definitive results. Current Interpretive Data was last reviewed 2023. Fentanyl, Ur Screen Positive, presumptive (A) CutOff 5 ng/mL CERNER [facility] Comment: Interpretive Data - Fentanyl: Samples containing greater than 5 ng/mL norfentanyl, fentanyl, or other cross-reacting fentanyl compounds are reported as positive. False positive and false negative results are possible. Confirmatory testing required for definitive results. Current Interpretive Data was last reviewed 2024. Methadone, ur Not Detected CutOff 300ng/mL [facility] Comment: Interpretive Data - Methadone: Samples containing [...] 2023. Oxycodone, ur Not Detected CutOff 100ng/mL [facility] Comment: Interpretive Data - Oxycodone: Samples containing greater than 100 ng/mL oxycodone or other cross-reacting compounds are reported as positive. False positive and false negative results are possible. Confirmatory testing required for definitive results. Current Interpretive Data was last reviewed 2023. Phencyclidine, ur Not Detected CutOff 25 ng/mL [facility] Comment: Interpretive Data - Phencyclidine: Samples containing greater than 25 ng/mL phencyclidine or other cross-reacting compounds are reported as positive. False positive and false negative results are possible. Confirmatory testing required for definitive results. Current Interpretive Data was last reviewed 2023. Urine Creatinine 16 mg/dL [facility] Comment: Interpretive Data Urine Creatinine: < 10 mg/dL is extremely dilute = or > 10 but < 20 mg/dL is dilute = or > 20 mg/dL is normal Current Interpretive Data was last revised on 2018. Urine 01/20/2025 8:32 PM CDT 01/20/2025 11:21 PM CDT Narrative [facility] - 01/21/2025 12:03 AM CDT Drug of Abuse screening is performed by immunoassay for medical purposes only. This is not to be used for Pain Management purposes. If Detected, confirmation testing will be performed for Amphetamines, Cocaine, Fentanyl, Methadone, Opiates, Oxycodone or Phencyclidine. Eli Brennan NP LAB URINE ORDERABLES Final Result [facility] One [facility] Department [place] [address] * (ABNORMAL) eGFR (01/20/2025 8:32 PM CDT) [...] MD LAB BLOOD ORDERABLES Final Resul t [facility] One [facility] Department [place] [address] * (ABNORMAL) Urinalysis reflex to microscopic and culture Urine (01/20/2025 8:32 PM CDT) Color, ur Straw Yellow Clarity, ur Clear Clear [facility] Specific gravity, ur 1.012 1.003 - 1.030 [facility] pH, urine 7.0 [facility] Comment: Interpretive Data U rine pH is affected by diet, medications, systemic acid-base disturbances, and renal tubular function. pH may affect urinary stone formation. For example, urine pH below 6.0 may help reduce the tendency for calcium phosphate stones and pH greater than 6.0 may reduce the tendency for uric acid stone formation. Source: [facility] [employer] Current Interpretive Data was last revised on 2017 Protein, ur ql Trace Negative [facility] Glucose, ur ql Negative Negative [facility] Ketones, ur Negative Negative [facility] Bilirubin, ur Negative Negative [facility] Blood, ur 1+(A) Negative [facility] Urobilinogen, ur <2.0 <2.0 mg/dL [facility] Nitrite, ur Negative Negative [facility] Leukocyte esterase, ur 1+(A) Negative [facility]ER [facility] UA reflex comment Reflex to microscopic UA will be performed. [facility] Urine 01/20/2025 8:32 PM CDT 01/20/2025 11:21 PM CDT Eli Brennan CENTER DIRECTOR LEAD TEACHER LAB MICROBIOLOGY - G ENERAL ORDERABLES Final Result Performing Organization Address City/[facility] Co de Phone Number [facility] [place] [address] * (ABNORMAL) Urinalysis, microscopic only (01/20/2025 8:32 PM CDT) WBC, ur 21-50(A) 0 - 5 /HPF RBC, ur 21-50(A) 0 - 2 /HPF [facility] Mucous, ur Present(A) [facility] Culture Reflex Comment Reflex to urine culture will be performed. [facility] Urine 01/20/2025 8:32 PM CDT 01/20/2025 11:22 PM CDT Eli Brennan CENTER DIRECTOR LEAD TEACHER LAB URINE ORDERABLES Final Result Performing Organization Address [facility] de Phone Number [facility] [place] [address] * (ABNORMAL) CBC without differential (01/20/2025 8:32 PM CDT) WBC 12.7(H) 3.8 - 9.9 K/cumm Hgb 10.6(L) 11.9 - 15.5 g/dL [facility] Comment:Hemoglobin delta due to apparent blood transfusion. Hct 32.9(L) 35.6 - 45.5 % [facility] Plt 435(H) 150 - 400 K/cumm [facility] MPV 9.3 9.1 - 12.3 fL [facility] RBC 3.99 3.90 - 5.20 M/cumm [facility] MCV 82.5 81.3 - 96.4 fL [facility] MCH 26.6(L) 27.1 - 33.3 pg [facility] MCHC 32.2(L) 32.3 - 35.7 g/dL [facility] RDW CV 13.3 11.1 - 14.9 % [facility] RDW SD 40.0 35.7 - 48.1 fL [facility] NRBC abs 0.00 0.00 - 0.01 K/cumm [facility] Blood 01/20/2025 8:32 PM CDT 01/20/2025 8:59 PM CDT Bernardo Lorenz MD LAB BLOOD ORDERABLES Final Resul t Performing Organization Address City/[facility] Co de Phone Number [facility] Department [place] [address] * Urine culture Urine (01/20/2025 8:32 PM CDT) Report Final Report: No growth Urine 01/20/2025 8:32 PM CDT 01/21/2025 1:53 AM CDT Narrative [facility] - 01/22/2025 7:04 AM CDT Urine culture reflexed based upon urinalysis results. Testing performed by [facility] ([phone]) Eli Brennan NP LAB MICROBIOLOGY - G ENERAL ORDERABLES Final Result Performing Organization Address City/[facility] Co de Phone Number [facility] Department [place] [address] * (ABNORMAL) Phosphorus (01/20/2025 8:32 PM CDT) Phosphorus, pl 5.2(H) 2.3 - 4.5 mg/dL Blood 01/20/2025 8:32 PM CDT 01/20/2025 8:59 PM CDT Bernardo Lorenz MD LAB BLOOD ORDERABLES Final Resul t Performing Organization Address City/[facility]/ZIP Co de Phone Number [facility] One [facility] Department [place] [address] * Magnesium (01/20/2025 8:32 PM CDT) Pathologist [facility] Magnesium 2.1 1.4 - 2.5 mg/dL Blood 01/20/2025 8:32 PM CDT 01/20/2025 8:59 PM CDT Bernardo Lorenz MD LAB BLOOD ORDERABLES Final Resul t Performing Organization Address [facility] Co de Phone Number [facility] One [facility] Department [place] [address] * (ABNORMAL) Comprehensive metabolic panel (01/20/2025 8:32 PM CDT) [facility] Sodium 145 135 - 145 mmol/L Potassium, pl 4.8 3.3 - 4.9 mmol/L [facility] Comment:Hemolyzed; Potassium value may be falsely elevated by as much as 0.3-0.5 mmol/L. Suggest redraw and reanalysis. Chloride 108 97 - 110 mmol/L [facility] CO2 27 22 - 32 mmol/L [facility] Anion gap 10 2 - 15 mmol/L [facility] BUN 29(H) 6 - 25 mg/dL [facility] Creatinine 1.07 0.60 - 1.10 mg/dL [facility] Glucose 104 70 - 199 mg/dL [facility] Comment: Interpretive Data Fasting glucose >/= [...] 9.6 8.5 - 10.3 mg/dL [facility]ER [facility] Bilirubin, total 0.7 0.1 - 1.2 mg/dL C[facility] Protein, pl 7.0 6.5 - 8.5 g/dL [facility] Albumin 3.8 3.5 - 5.0 g/dL [facility] Alk phos 202(H) 40 - 130 Units/L [facility] ALT 13 7 - 45 Units/L [facility] AST 33 10 - 45 Units/L CERNER [facility] Comment:Hemolyzed; result ma y be falsely elevated Blood 01/20/2025 8:32 PM CDT 01/20/2025 8:59 PM CDT us Bernardo Lorenz MD LAB BLOOD ORDERABLES Final Resul t [facility] One [facility] Department [place] [address] * CT Head WO Contrast (01/20/2025 8:23 [...] Transfuse platelets (01/20/2025 7:23 PM CDT) Blood us Bernardo Lorenz MD BLOOD TRANSFUSION ORDERABLES Fin al Result DARINEL CUBA Jos[facility] Department [place] [address] * AK AN ELECTIVE ENDOTRACHEAL AIRWAY, AK AN PROCEDURE PLACEHOLDER (01/20/2025 7:17 PM CDT) Narrative Radha Neely CRNA - 01/20/2025 7:17 PM CDT Radha Neely CRNA 01/20/2025 7:17 PM Airway Patient location: OR Urgency: elective Indications for airway management: anesthesia and airway protection Difficult airway: no Staff: Placed by: PROCUREMENT BUYER: Radha Neely CRNA Airway prep: Preoxygenated: yes [...] TRANSFUSION ORDERABLES Fin al Result DARINEL [facility] Jos[facility] Department [place] [address] * POCT glucose (01/20/2025 6:07 PM CDT) Glucose, POC 97 70 - 199 mg/dL Blood 01/20/2025 6:07 PM CDT 01/20/2025 6:07 PM CDT Bernardo Lorenz MD LAB POCT ORDERABLES - DEVICE Fin al Result Performing Organization Address [facility] Co de Phone Number DARINEL CUBA [facility] Department [place] [address] * Transfuse RBC (01/20/2025 6:02 PM CDT) Blood Callum Gonzalez MD BLOOD TRANSFUSION ORDERABLES F inal Result Performing Organization Address [facility] Co de Phone Number DARINEL CUBA One [facility] [employer] [place] [address] * Neuro CT Outside Reference (01/20/2025 5:52 PM CDT) Impressions [email or web address] - 01/20/2025 5:52 PM CDT These images are for Reference purposes only and have not been reviewed by [facility]. There will be no report generated by a [facility] Radiologist. Narrative [facility] - 01/20/2025 5:52 PM CDT EXAMINATION: Images For Reference Purposes Only Marie Caballero MD IMG CT PROCEDURES Final Result Performing Organization Address [facility] Co de Phone Number [email or web address] * CT [...] the neurosurgery service by Dr. Camargo by [employer] secure chat at 17:16 on 01/20/2025 with [...] the neurosurgery service by Dr. Camargo by [employer] secure chat at 17:16 on 01/20/2025 with readback confirmation. Dictated by: Rodriguez Johnston MD The radiology attending physician has personally reviewed this study, and had reviewed and/or edited this written report and agrees with it. Electronically signed by: Adam Camargo MD Eli Brennan CENTER DIRECTOR LEAD TEACHER IMG CT PROCEDURES Fi nal Result * [...] Brennan NP LAB BLOOD ORDERABLES Final Result [facility] One [facility] Department [place] [address] * (ABNORMAL) Urinalysis reflex to microscopic and culture Urine (01/20/2025 3:32 PM CDT) Color, ur Straw Yellow Clarity, ur Clear Clear [facility] Specific gravity, ur 1.009 1.003 - 1.030 [facility] pH, urine 6.5 [facility] Comment: Interpretive Data U rine pH is affected by diet, medications, systemic acid-base disturbances, and renal tubular function. pH may affect urinary stone formation. For example, urine pH below 6.0 may help reduce the tendency for calcium phosphate stones and pH greater than 6.0 may reduce the tendency for uric acid stone formation. Source: [facility] Current Interpretive Data was last revised on 2017 Protein, ur ql Trace Negative [facility] Glucose, ur ql Negative Negative [facility] Ketones, ur Negative Negative [facility] Bilirubin, ur Negative Negative [facility] Blood, ur 1+(A) Negative [facility] Urobilinogen, ur <2.0 <2.0 mg/dL [facility] Nitrite, ur Negative Negative [facility] Leukocyte esterase, ur 3+(A) Negative [facility] UA reflex comment Reflex to microscopic UA will be performed. [facility] Urine 01/20/2025 3:32 PM CDT 01/20/2025 3:54 PM CDT Bernardo Lorenz MD LAB MICROBIOLOGY - GENERAL ORDER ALLAN Final Result Performing Organization Address [facility] de Phone Number [facility] [employer] [place] [address] * (ABNORMAL) Urinalysis, microscopic only (01/20/2025 3:32 PM CDT) WBC, ur 21-50(A) 0 - 5 /HPF RBC, ur 0-2 0 - 2 /HPF [facility] Epithelial cells, squamous, ur 1-5 0 - 5 /HPF [facility] Bacteria, ur 2+(A) [facility] Mucous, ur Present(A) [facility] Culture Reflex Comment Reflex to urine culture will be performed. [facility] Urine 01/20/2025 3:32 PM CDT 01/20/2025 3:54 PM CDT Bernardo Lorenz MD LAB URINE ORDERABLES Final Resul t Performing Organization Address City/[facility] Co de Phone Number [facility] [employer] [place] [address] * (ABNORMAL) Urine culture Urine (01/20/2025 3:32 PM CDT) Report Final Report: Greater than or equal to 100,000 colonies/mL of Escherichia coli (.) Organism ESCHERICHIA COLI [facility] Urine 01/20/2025 3:32 PM CDT 01/20/2025 8:53 PM CDT Narrative DARINEL CUBA - 01/23/2025 5:22 AM CDT Urine culture reflexed based upon urinalysis results. Testing performed by [facility] ([phone]) Organism Antibiotic Method Susceptibility Escherichia coli Ampicillin [...] ORDER ALLAN Final Result Performing Organization Address City/[facility]/ZIP Co de Phone Number [facility] Department [place] [address] * Type and screen (01/20/2025 3:29 PM CDT) [facility] Meeta, indirect Negative ABO Rh A Positive [facility] Blood 01/20/2025 3:29 PM CDT 01/20/2025 4:17 PM CDT Narrative DARINEL [facility] - 01/20/2025 5:14 PM CDT Has the patient had Daratumumab or Isatuximab in the past 6 months?->Unknown Bernardo Lorenz MD LAB BLOOD BANK TEST ORDERABLES F inal Result Performing Organization Address City/[facility]/ZIP Co de Phone Number [facility] Department [place] [address] * (ABNORMAL) Phosphorus (01/20/2025 3:29 PM CDT) Pathologist [facility] Phosphorus, pl 4.8(H) 2.3 - 4.5 mg/dL Blood 01/20/2025 3:29 PM CDT 01/20/2025 4:11 PM CDT Bernardo Lorenz MD LAB BLOOD ORDERABLES Final Resul t Performing Organization Address [facility] de Phone Number [facility] [place] [employer] [address] * Magnesium (01/20/2025 3:29 PM CDT) Magnesium 1.8 1.4 - 2.5 mg/dL Blood 01/20/2025 3:29 PM CDT 01/20/2025 4:11 PM CDT Result [facility] Bernardo Lorenz MD LAB BLOOD ORDERABLES Final Resul t Performing Organization Address [facility] de Phone Number [facility] [place] [employer] [address] * (ABNORMAL) Gamma GT (01/20/2025 3:29 PM CDT) GGT 55(H) 5 - 35 Units/L Blood 01/20/2025 3:29 PM CDT 01/20/2025 4:11 PM CDT Eli Brennan NP LAB BLOOD ORDERABLES Final Result Performing Organization Address [facility] de Phone Number [facility] [employer] [address] * Creatine kinase (CK), total (01/20/2025 3:29 PM CDT) CK 30 30 - 200 Units/L Blood 01/20/2025 3:29 PM CDT 01/20/2025 4:11 PM CDT Eli Brennan NP LAB BLOOD ORDERABLES Final Result Performing Organization Address [facility] Co de Phone Number [facility] Department [place] [address] * ECG 12 lead (01/20/2025 3:26 PM CDT) Ventricular Rate EKG/Min 82 BPM [facility] Atrial Rate 82 BPM [facility] AK-Interval (MSEC) 152 ms [facility] QRS-Interval (MSEC) 84 ms [facility] QT-Interval (MSEC) 374 ms [facility] QTc 436 ms [facility] P [place] 59 degrees [facility] R [place] 75 degrees [facility] T [place] 49 degrees [facility] Diagnosis Normal sinus rhythm Normal ECG No previous ECGs available Confirmed by REJI ARTEAGA M.D ([id number]) on 01/22/2025 10:13:45 AM [facility] 01/20/2025 3:26 PM CDT 01/22/2025 10:13 AM CDT Bernardo Lorenz MD ECG ORDERABLES Final Result Performing Organization Address [facility] Co de Phone Number [facility] * POCT glucose (01/20/2025 3:10 PM CDT) Glucose, POC 85 70 - 199 mg/dL Blood 01/20/2025 3:10 PM CDT 01/20/2025 3:10 PM CDT Bernardo Lorenz MD LAB POCT ORDERABLES - DEVICE Fin al Result Performing Organization Address City/[facility]/ZIP Co de Phone Number [facility] [place] [address] * AK CRITICAL CARE ILL/INJURED PATIENT INIT 30-74 MIN (01/20/2025 1:55 PM CDT) Narrative Lonnie Laguna MD - 01/20/2025 1:55 PM CDLonnie Craig MD 01/20/2025 1:56 PM Critical Care Performed [...] 2 Units (01/20/2025 1:08 PM CDT) [facility] Product code [id number] Unit Number [id number] [facility] Product Blood Type APOS [facility] Dispense Status PRESUMED TRANSFUSED [facility] Blood Venous blood specimen / Unknown 01/20/2025 1:08 PM CDT 01/20/2025 1:07 PM CDT Narrative [facility] - 01/21/2025 8:00 AM CDT Other indication->SDH growing- NSGY on anti plt Are special requirements needed? (all products are leukoreduced)->No Date required:-30695152 PLT # of Units:-2-Units Reasons:-Other (Specify)} Callum Gonzalez MD BLOOD BANK PRODUCT ORDERABLES Final Result Performing Organization Address [facility] Co de Phone Number [facility] [employer] [place] [address] * Prepare RBC: 1 Units (01/20/2025 1:03 PM CDT) Product code [id number] Unit Number [id number] [facility] Product Blood Type ANEG [facility] Dispense Status PRESUMED TRANSFUSED [facility] Blood 01/20/2025 1:03 PM CDT 01/20/2025 1:02 PM CDT Narrative [facility] - 01/21/2025 6:01 AM CDT Are special requirements needed? (All products are leukoreduced and CMV- safe)- >No Date required:-20250120 LRRBC # of Swkak-5-Mvegn Reasons:-Hgb <7 g/dL} Callum Gonzalez MD BLOOD BANK PRODUCT ORDERABLES Final Result Performing Organization Address [facility] Co de Phone Number [facility] [employer] [place] [address] * XR Chest 1 View (01/20/2025 12:47 [...] PM CDT 01/20/2025 1:15 PM CDT Narrative [facility] - 01/20/2025 1:40 PM CDT Brenda PIPER notified to add AbSc into ABO/Rh sample. Callum Gonzalez MD LAB BLOOD BANK TEST ORDERABLES Final Result Performing Organization Address City/[facility]/ZIP Co de Phone Number [facility] [place] [employer] [address] * Antibody screen (01/20/2025 12:40 PM CDT) Meeta, indirect Negative Blood 01/20/2025 12:4 0 PM CDT 01/20/2025 1:15 PM CDT Lonnie Laguna MD LAB BLOOD BANK TEST ORDE RABLES Final Result Performing Organization Address [facility]/ZIP Co de Phone Number [facility] [place] [employer] [address] * Prepare platelets: 2 Units (01/20/2025 12:37 PM CDT) Product code [id number] Unit Number [id number] [facility] Product Blood Type APOS [facility] Dispense Status PRESUMED TRANSFUSED [facility] Blood Venous blood specimen / Unknown 01/20/2025 12:37 PM CDT 01/20/2025 12:38 PM CDT [facility] 8[facility] AM CDT Other indication->increase intercranial hemorrhage on plavix and ASA Are special requirements needed? (all products are leukoreduced)->No Date required:-20250120 PLT # of Units:-2-Units Reasons:-Other (Specify)} Callum Gonzalez MD BLOOD BANK PRODUCT ORDERABLES Final Result Performing Organization Address [facility] Co de Phone Number [facility] Department [place] [address] * Sepsis Lactate w/ Reflex (01/20/2025 12:28 PM CDT) Pathologist [facility] Sepsis Lactate 1.4 0.7 - 2.0 mmol/L Blood 01/20/2025 12:2 8 PM CDT 01/20/2025 12:33 PM CDT Callum Gonzalez MD LAB BLOOD ORDERABLES Final Res ult Performing Organization Address [facility] de Phone Number [facility] [place] [address] * (ABNORMAL) eGFR (01/20/2025 12:28 PM CDT) [...] MD LAB BLOOD ORDERABLES Final Res ult [facility] One [facility] [place] [address] * (ABNORMAL) Differential, auto (01/20/2025 12:28 PM CDT) Neutrophil abs 8.0(H) 1.5 - 6.5 K/cumm Imm gran abs 0.2(H) 0.0 - 0.1 K/cumm [facility] Lymphocyte abs 3.5(H) 0.8 - 3.3 K/cumm [facility] Monocyte abs 0.8 0.2 - 0.8 K/cumm [facility] Eosinophil abs 1.2(H) 0.0 - 0.5 K/cumm [facility] Basophil abs 0.1 0.0 - 0.1 K/cumm [facility] Neutrophil pct 58.1 % [facility] Comment: Interpretive Data Percent cell count reference ranges are not reported, since discordance with absolute values may lead to misinterpretation of CBC data. Current Interpretive Data was last revised on 2018. Imm gran pct 1.3 % [facility] Comment: Interpretive Data Percent cell count reference ranges are not reported, since discordance with absolute values may lead to misinterpretation of CBC data. Current Interpretive Data was last revised on 2018. Lymphocyte pct 25.5 % [facility] Comment: Interpretive Data Percent cell count reference ranges are not reported, since discordance with absolute values may lead to misinterpretation of CBC data. Current Interpretive Data was last revised on 2018. Monocyte pct 6.1 % [facility] Comment: Interpretive Data Percent cell count reference ranges are not reported, since discordance with absolute values may lead to misinterpretation of CBC data. Current Interpretive Data was last revised on 2018. Eosinophil pct 8.5 % [facility] Comment: Interpretive Data Percent cell count reference ranges are not reported, since discordance with absolute values may lead to misinterpretation of CBC data. Current Interpretive Data was last revised on 2018. Basophil pct 0.5 % [facility] Comment: Interpretive Data Percent cell count reference ranges are not reported, since discordance with absolute values may lead to misinterpretation of CBC data. Current Interpretive Data was last revised on 2018. Blood 01/20/2025 12:2 8 PM CDT 01/20/2025 12:36 PM CDT us Callum Gonzalez MD LAB BLOOD ORDERABLES Final Res ult Performing Organization Address City/[facility]/ZIP Co de Phone Number [facility] Department [place] [address] * POCT glucose (01/20/2025 12:28 PM CDT) [facility] Glucose, POC 112 70 - 199 mg/dL Blood 01/20/2025 12:2 8 PM CDT 01/20/2025 12:28 PM CDT Notinfile Unknown LAB POCT ORDERABLES - DEVICE F inal Result Performing Organization Address [facility] Co de Phone Number [facility] Department [place] [address] * (ABNORMAL) CBC with auto differential (01/20/2025 12:28 PM CDT) [facility] WBC 13.7(H) 3.8 - 9.9 K/cumm Hgb 6.7(L) 11.9 - 15.5 g/dL [facility] Hct 21.0(L) 35.6 - 45.5 % [facility] Plt 472(H) 150 - 400 K/cumm [facility] MPV 9.5 9.1 - 12.3 fL [facility] RBC 2.52(L) 3.90 - 5.20 M/cumm [facility] MCV 83.3 81.3 - 96.4 fL [facility] MCH 26.6(L) 27.1 - 33.3 pg [facility] MCHC 31.9(L) 32.3 - 35.7 g/dL [facility] RDW CV 13.4 11.1 - 14.9 % [facility] RDW SD 40.7 35.7 - 48.1 fL [facility] NRBC abs 0.00 0.00 - 0.01 K/cumm [facility] Blood 01/20/2025 12:2 8 PM CDT 01/20/2025 12:36 PM CDT Callum Gonzalez MD LAB BLOOD ORDERABLES Final Res ult Performing Organization Address [facility] de Phone Number [facility] [place] [address] * aPTT (01/20/2025 12:28 PM CDT) aPTT [...] ORDERABLES Final Res ult Performing Organization Address [facility] Co de Phone Number [facility] [place] [address] * Protime-INR (01/20/2025 12:28 PM CDT) PT 11.2 9.7 - 13.0 sec INR 1.04 0.90 - 1.20 [facility] Comment: Interpretive data Oral anticoagulant therapeutic ranges: Venous thromboembolism prophylaxis or treatment: 2.0-3.0 CARDIOLOGY Standard range: 2.0-3.0 High-intensity range: 2.5-3.5 Refer to indication-specific guidelines for appropriate target ranges for prosthetic heart valve replacement. Current interpretive data was last revised on 2019. Blood 01/20/2025 12:2 8 PM CDT 01/20/2025 12:38 PM CDT us Callum Gonzalez MD LAB BLOOD ORDERABLES Final Res ult [facility] Department [place] [address] * (ABNORMAL) Lipid panel (01/20/2025 12:28 PM [...] 2018. Triglycerides 319(H) <=149 mg/dL [facility] Comment: Interpretive Data Ages < or = [...] revised on 2018. HDL 25(L) >=40 mg/dL [facility] Comment: Interpretive Data Ages < or = [...] on 2018. LDL, calculated 75 <=129 mg/dL [facility] Comment: Interpretive Data Ages < or = [...] 3. Isaiah Chow et al. JORDAN Cardiol. 2020 March 13;5(5):540-548. doi: [email or web address] Current Interpretive Data was last revised on 2024. Non-HDL Cholesterol 127 mg/dL [facility] Comment: Interpretive Data Ages < or = [...] last revised on 2018. Chol/HDL ratio 6 [facility] Blood 01/20/2025 12:2 8 PM CDT 01/20/2025 12:36 PM CDT Bernardo Lorenz MD LAB BLOOD ORDERABLES Final Resul t [facility] Department [place] [address] * (ABNORMAL) Comprehensive metabolic panel (01/20/2025 12:28 PM CDT) Sodium 139 135 - 145 mmol/L Potassium, pl 4.4 3.3 - 4.9 mmol/L [facility] Chloride 103 97 - 110 mmol/L [facility] CO2 27 22 - 32 mmol/L [facility] Anion gap 9 2 - 15 mmol/L [facility] BUN 36(H) 6 - 25 mg/dL [facility] Creatinine 1.29(H) 0.60 - 1.10 mg/dL [facility] Glucose 94 70 - 199 mg/dL [facility] Comment: Interpretive Data Fasting glucose >/= [...] 2022. Calcium 10.1 8.5 - 10.3 mg/dL [facility] Bilirubin, total 0.2 0.1 - 1.2 mg/dL [facility] Protein, pl 7.3 6.5 - 8.5 g/dL [facility] Albumin 3.8 3.5 - 5.0 g/dL [facility] Alk phos 215(H) 40 - 130 Units/L [facility] ALT 11 7 - 45 Units/L [facility] AST 15 10 - 45 Units/L [facility] Blood 01/20/2025 12:2 8 PM CDT 01/20/2025 12:36 PM CDT us Callum Gonzalez MD LAB BLOOD ORDERABLES Final Res ult Performing Organization Address [facility] Co de Phone Number [facility] [place] [address] * POCT glucose (01/15/2025 12:04 PM INVESTIGATIVE AGENT) Glucose, POC 164 70 - 199 mg/dL Blood 01/15/2025 12:0 4 PM INVESTIGATIVE AGENT 01/15/2025 12:04 PM INVESTIGATIVE AGENT Bethany Laurent DO LAB POCT ORDERABLES - DEVICE Final Result Performing Organization Address [facility] Co de Phone Number [facility] Department [place] [address] * (ABNORMAL) Hemoglobin and hematocrit (01/15/2025 10:11 AM INVESTIGATIVE AGENT) [facility] Signature Hgb 9.4(L) 11.9 - 15.5 g/dL Hct 29.5(L) 35.6 - 45.5 % [facility] Blood 01/15/2025 10:1 1 AM INVESTIGATIVE AGENT 01/15/2025 10:24 AM INVESTIGATIVE AGENT us Honey Sanchez NP LAB BLOOD ORDERABLES Fi nal Result Performing Organization Address [facility] Co de Phone Number [facility] [place] [employer] [address] * POCT glucose (01/15/2025 8:01 AM INVESTIGATIVE AGENT) Glucose, POC 164 70 - 199 mg/dL Blood 01/15/2025 8:01 AM INVESTIGATIVE AGENT 01/15/2025 8:01 AM INVESTIGATIVE AGENT Bethany Masha Connordana DO LAB POCT ORDERABLES - DEVICE Final Result Performing Organization Address City/[facility] [place] [address] * POCT glucose (01/14/2025 8:17 PM INVESTIGATIVE AGENT) Glucose, POC 165 70 - 199 mg/dL Blood 01/14/2025 8:17 PM INVESTIGATIVE AGENT 01/14/2025 8:17 PM INVESTIGATIVE AGENT Bethany Masha Millerpatdana DO LAB POCT ORDERABLES - DEVICE Final Result Performing Organization Address [facility] [place] [address] * POCT glucose (01/14/2025 5:13 PM INVESTIGATIVE AGENT) Glucose, POC 156 70 - 199 mg/dL Blood 01/14/2025 5:13 PM INVESTIGATIVE AGENT 01/14/2025 5:13 PM INVESTIGATIVE AGENT Result [facility] Bethany Laurent DO LAB POCT ORDERABLES - DEVICE Final Result Performing Organization Address [facility] Co de Phone Number D[facility]INEL [facility] [place] [address] * POCT glucose (01/14/2025 11:37 AM INVESTIGATIVE AGENT) Glucose, POC 129 70 - 199 mg/dL Blood 01/14/2025 11:3 7 AM INVESTIGATIVE AGENT 01/14/2025 11:37 AM INVESTIGATIVE AGENT Bethany Masha Millerpatdana DO LAB POCT ORDERABLES - DEVICE Final Result Performing Organization Address City/[facility] Co de Phone Number [facility] [place] [address] * POCT glucose (01/14/2025 7:35 AM INVESTIGATIVE AGENT) Glucose, POC 160 70 - 199 mg/dL Blood 01/14/2025 7:35 AM INVESTIGATIVE AGENT 01/14/2025 7:35 AM INVESTIGATIVE AGENT Bethany [employer] [facility] DO LAB POCT ORDERABLES - DEVICE Final Result Performing Organization Address City/[facility] [place] [address] * (ABNORMAL) POCT glucose (01/13/2025 8:35 PM INVESTIGATIVE AGENT) Glucose, POC 212(H) 70 - 199 mg/dL Blood 01/13/2025 8:35 PM INVESTIGATIVE AGENT 01/13/2025 8:35 PM INVESTIGATIVE AGENT [facility] LAB POCT ORDERABLES - DEVICE Final Result Performing Organization Address City/[facility] [place] [address] * POCT glucose (01/13/2025 4:55 PM INVESTIGATIVE AGENT) Glucose, POC 141 70 - 199 mg/dL Blood 01/13/2025 4:55 PM INVESTIGATIVE AGENT 01/13/2025 4:55 PM INVESTIGATIVE AGENT Bethany [employer] LAB POCT ORDERABLES - DEVICE Final Result Performing Organization Address City/[facility] [place] [address] * POCT glucose (01/13/2025 11:14 AM INVESTIGATIVE AGENT) Glucose, POC 155 70 - 199 mg/dL Blood 01/13/2025 11:1 4 AM INVESTIGATIVE AGENT 01/13/2025 11:14 AM INVESTIGATIVE AGENT Bethany Laurent DO LAB POCT ORDERABLES - DEVICE Final Result Performing Organization Address [facility] de Phone Number [facility] [place] [address] * (ABNORMAL) Hemoglobin A1c (01/13/2025 8:30 AM INVESTIGATIVE AGENT) Hgb A1C 6.9(H) 4.0 - 5.6 % Estimated Average Glucose 151 mg/dL [facility] Comment: The ADA recommends reporting an estimated Average Glucose (eAG) with all Hemoglobin A1c results using the equation derived from a study of 507 normal and diabetic adults. Minority populations were underrepresented and children were not included. (Diabetes Care 2020; 43(S1): S66-S76). The eAG is not equivalent to a fasting glucose. Blood 01/13/2025 8:30 AM INVESTIGATIVE AGENT 01/13/2025 9:21 AM INVESTIGATIVE AGENT Jocelynn Graham CENTER DIRECTOR LEAD TEACHER LAB BLOOD ORDERABLES Final Result Performing Organization Address [facility] [place] [address] * POCT glucose (01/13/2025 7:31 AM INVESTIGATIVE AGENT) Glucose, POC 174 70 - 199 mg/dL Blood 01/13/2025 7:3 1 AM INVESTIGATIVE AGENT 01/13/2025 7:31 AM INVESTIGATIVE AGENT Bethany Laurent DO LAB POCT ORDERABLES - DEVICE Final Result Performing Organization Address [facility] de Phone Number [facility] [place] [address] * POCT glucose (01/12/2025 11:59 PM INVESTIGATIVE AGENT) Glucose, POC 151 70 - 199 mg/dL Blood 01/12/2025 11:5 9 PM INVESTIGATIVE AGENT 01/12/2025 11:59 PM INVESTIGATIVE AGENT Bethany Laurent DO LAB POCT ORDERABLES - DEVICE Final Result [facility] Department [place] [address] * CT Head WO Contrast (01/12/2025 11:33 PM INVESTIGATIVE AGENT) Anatomical Region Laterality Modality Head and Neck N/A Computed Tomogra phy 01/12/2025 11:4 3 PM INVESTIGATIVE AGENT Impressions 01/13/2025 12:46 PM INVESTIGATIVE AGENT Overall stable appearance of right cerebral convexity subdural hematoma with unchanged 3 mm leftward midline shift. Dictated by: Honey Bills MD The radiology attending physician has personally reviewed this study, and had reviewed and/or edited this written report and agrees with it. Electronically signed by: Jamari Rai M.D. Narrative 01/13/2025 12:46 PM INVESTIGATIVE AGENT EXAMINATION: CT head without contrast HISTORY: 69 [...] carotid arteries and vertebral arteries. Procedure Note aJmari Rai MD PhD - 01/13/2025 EXAMINATION: CT [...] Result * POCT glucose (01/12/2025 9:56 PM INVESTIGATIVE AGENT) Glucose, POC 147 70 - 199 mg/dL Blood 01/12/2025 9:56 PM INVESTIGATIVE AGENT 01/12/2025 9:56 PM INVESTIGATIVE AGENT Bethany Laurent DO LAB POCT ORDERABLES - DEVICE Final Result [facility] Department [place] [address] * POCT glucose (01/12/2025 5:12 PM INVESTIGATIVE AGENT) Glucose, POC 130 70 - 199 mg/dL Blood 01/12/2025 5:12 PM INVESTIGATIVE AGENT 01/12/2025 5:12 PM INVESTIGATIVE AGENT us Bethany Laurent DO LAB POCT ORDERABLES - DEVICE Final Result Performing Organization Address City/[facility] Co de Phone Number [facility] [place] [address] * POCT glucose (01/12/2025 11:36 AM INVESTIGATIVE AGENT) Glucose, POC 166 70 - 199 mg/dL Blood 01/12/2025 11:3 6 AM INVESTIGATIVE AGENT 01/12/2025 11:36 AM INVESTIGATIVE AGENT Bethany Laurent DO LAB POCT ORDERABLES - DEVICE Final Result Performing Organization Address [facility] Co de Phone Number [facility] [place] [address] * POCT glucose (01/12/2025 8:11 AM INVESTIGATIVE AGENT) Glucose, POC 139 70 - 199 mg/dL Blood 01/12/2025 8:11 AM INVESTIGATIVE AGENT 01/12/2025 8:11 AM INVESTIGATIVE AGENT Bethany Laurent DO LAB POCT ORDERABLES - DEVICE Final Result Performing Organization Address City/[facility] Co de Phone Number [facility] Department [place] [address] * (ABNORMAL) eGFR (01/11/2025 9:49 PM INVESTIGATIVE AGENT) eGFR 36(L) >=60 mL/min/1. 73 m2 Comment: [...] last reviewed 2021. Blood 01/11/2025 9:49 PM INVESTIGATIVE AGENT 01/11/2025 10:04 PM INVESTIGATIVE AGENT Melida Asher NP LAB BLOOD ORDERABL ES Final Result [facility] Department [place] [address] * (ABNORMAL) CBC without differential (01/11/2025 9:49 PM INVESTIGATIVE AGENT) WBC 8.6 3.8 - 9.9 K/cumm Hgb 8.3(L) 11.9 - 15.5 g/dL [facility] Hct 25.5(L) 35.6 - 45.5 % [facility] Plt 273 150 - 400 K/cumm [facility] MPV 10.0 9.1 - 12.3 fL [facility] RBC 3.14(L) 3.90 - 5.20 M/cumm [facility] MCV 81.2(L) 81.3 - 96.4 fL [facility] MCH 26.4(L) 27.1 - 33.3 pg [facility] MCHC 32.5 32.3 - 35.7 g/dL [facility] RDW CV 13.2 11.1 - 14.9 % [facility] RDW SD 38.3 35.7 - 48.1 fL [facility] NRBC abs 0.00 0.00 - 0.01 K/cumm [facility] Blood 01/11/2025 9:49 PM INVESTIGATIVE AGENT 01/11/2025 10:05 PM INVESTIGATIVE AGENT Melida Asher NP LAB BLOOD ORDERABL ES Final Result Performing Organization Address [facility] Co de Phone Number [facility] [place] [address] * Phosphorus (01/11/2025 9:49 PM INVESTIGATIVE AGENT) Pathologist [facility] Phosphorus, pl 4.1 2.3 - 4.5 mg/dL Blood 01/11/2025 9:49 PM INVESTIGATIVE AGENT 01/11/2025 10:04 PM INVESTIGATIVE AGENT Melida Asher NP LAB BLOOD ORDERABL ES Final Result Performing Organization Address [facility] Co de Phone Number [facility] [place] [address] * Magnesium (01/11/2025 9:49 PM INVESTIGATIVE AGENT) [facility] Magnesium 1.8 1.4 - 2.5 mg/dL Blood 01/11/2025 9:49 PM INVESTIGATIVE AGENT 01/11/2025 10:04 PM INVESTIGATIVE AGENT Melida Asher NP LAB BLOOD ORDERABL ES Final Result Performing Organization Address [facility] de Phone Number [facility] [place] [address] * (ABNORMAL) Basic metabolic panel (01/11/2025 9:49 PM INVESTIGATIVE AGENT) [facility] Sodium 138 135 - 145 mmol/L Potassium, pl 4.1 3.3 - 4.9 mmol/L [facility] Chloride 102 97 - 110 mmol/L [facility] CO2 25 22 - 32 mmol/L [facility] Anion gap 11 2 - 15 mmol/L [facility] BUN 21 6 - 25 mg/dL [facility] Creatinine 1.55(H) 0.60 - 1.10 mg/dL [facility] Glucose 180 70 - 199 mg/dL [facility] Comment: Interpretive Data Fasting glucose >/= [...] 2022. Calcium 8.8 8.5 - 10.3 mg/dL [facility] Blood 01/11/2025 9:49 PM INVESTIGATIVE AGENT 01/11/2025 10:04 PM INVESTIGATIVE AGENT Melida Asher CENTER DIRECTOR LEAD TEACHER LAB BLOOD ORDERABL ES Final Result Performing Organization Address City/[facility]/ZIP Co de Phone Number [facility] [place] [employer] [place] [address] * (ABNORMAL) POCT glucose (01/11/2025 8:43 PM INVESTIGATIVE AGENT) Glucose, POC 223(H) 70 - 199 mg/dL Comment:Glu2: RN/MD Notified Glucose comment 1 Glu2: RN/MD Notified [facility] Blood 01/11/2025 8:43 PM INVESTIGATIVE AGENT 01/11/2025 8:43 PM INVESTIGATIVE AGENT us Bethany Laurent DO LAB POCT ORDERABLES - DEVICE Final Result [facility] [place] [address] * POCT glucose (01/11/2025 6:46 PM INVESTIGATIVE AGENT) Glucose, POC 155 70 - 199 mg/dL Blood 01/11/2025 6:46 PM INVESTIGATIVE AGENT 01/11/2025 6:46 PM INVESTIGATIVE AGENT Bethany Laurent DO LAB POCT ORDERABLES - DEVICE Final Result Performing Organization Address City/[facility]/ZIP Co de Phone Number DARINEL CUBA Josr [facility] Department [place] [address] * Critical Care (01/11/2025 2:33 PM INVESTIGATIVE AGENT) Narrative Rachel Frey MD - 01/11/2025 2:33 PM INVESTIGATIVE AGENT Rachel Frey MD 01/12/2025 3:29 PM Critical [...] plan with the patient's team and other medical/security sales consultant staff. This time was in addition to and separate from care provided by other practitioners on this day of service. Melida Asher CENTER DIRECTOR LEAD TEACHER IN CLINIC/BEDSIDE ORDERABLES Final Result * (ABNORMAL) POCT glucose (01/11/2025 11:42 AM INVESTIGATIVE AGENT) Glucose, POC 201(H) 70 - 199 mg/dL Blood 01/11/2025 11:4 2 AM INVESTIGATIVE AGENT 01/11/2025 11:42 AM INVESTIGATIVE AGENT Bethany Laurent DO LAB POCT ORDERABLES - DEVICE Final Result Performing Organization Address [facility]/ZIP Co de Phone Number DARINEL CUBA Josr [facility] Department [place] [address] * POCT glucose (01/11/2025 6:54 AM INVESTIGATIVE AGENT) Glucose, POC 163 70 - 199 mg/dL Blood 01/11/2025 6:54 AM INVESTIGATIVE AGENT 01/11/2025 6:54 AM INVESTIGATIVE AGENT [facility] LAB POCT ORDERABLES - DEVICE Final Result Performing Organization Address [facility] Phone Number [facility] [place] [employer] [address] * POCT glucose (01/11/2025 3:02 AM INVESTIGATIVE AGENT) [facility] Glucose, POC 150 70 - 199 mg/dL Blood 01/11/2025 3:02 AM INVESTIGATIVE AGENT 01/11/2025 3:02 AM INVESTIGATIVE AGENT Result [facility] POCT ORDERABLES - DEVICE Final Result Performing Organization Address [facility] Phone Number [facility] [place] [address] * POCT glucose (01/10/2025 11:09 PM INVESTIGATIVE AGENT) [facility] Glucose, POC 135 70 - 199 mg/dL Blood 01/10/2025 11:0 9 PM INVESTIGATIVE AGENT 01/10/2025 11:09 PM INVESTIGATIVE AGENT Result [facility] LAB POCT ORDERABLES - DEVICE Final Result Performing Organization Address [facility] Phone Number [facility] [place] [employer] [address] * (ABNORMAL) eGFR (01/10/2025 8:56 PM INVESTIGATIVE AGENT) [facility] eGFR 34(L) >=60 mL/min/1. 73 m2 Comment: [...] last reviewed 2021. Blood 01/10/2025 8:56 PM INVESTIGATIVE AGENT 01/10/2025 9:27 PM INVESTIGATIVE AGENT us Melida Asher NP LAB BLOOD ORDERABL ES Final Result [facility] Department [place] [address] * (ABNORMAL) CBC without differential (01/10/2025 8:56 PM INVESTIGATIVE AGENT) WBC 8.8 3.8 - 9.9 K/cumm Hgb 8.9(L) 11.9 - 15.5 g/dL [facility] Hct 26.7(L) 35.6 - 45.5 % [facility] Plt 249 150 - 400 K/cumm [facility] MPV 10.2 9.1 - 12.3 fL [facility] RBC 3.31(L) 3.90 - 5.20 M/cumm [facility] MCV 80.7(L) 81.3 - 96.4 fL [facility] MCH 26.9(L) 27.1 - 33.3 pg [facility] MCHC 33.3 32.3 - 35.7 g/dL [facility] RDW CV 13.3 11.1 - 14.9 % [facility] RDW SD 38.7 35.7 - 48.1 fL [facility] NRBC abs 0.00 0.00 - 0.01 K/cumm [facility] Blood 01/10/2025 8:56 PM INVESTIGATIVE AGENT 01/10/2025 9:28 PM INVESTIGATIVE AGENT Melida Asher NP LAB BLOOD ORDERABL ES Final Result Performing Organization Address [facility] de Phone Number [facility] [place] [address] * Phosphorus (01/10/2025 8:56 PM INVESTIGATIVE AGENT) [facility] Phosphorus, pl 3.6 2.3 - 4.5 mg/dL Blood 01/10/2025 8:56 PM INVESTIGATIVE AGENT 01/10/2025 9:27 PM INVESTIGATIVE AGENT Melida Asher NP LAB BLOOD ORDERABL ES Final Result Performing Organization Address [facility] de Phone Number [facility] [place] [address] * Magnesium (01/10/2025 8:56 PM INVESTIGATIVE AGENT) [facility] Magnesium 1.7 1.4 - 2.5 mg/dL Blood 01/10/2025 8:56 PM INVESTIGATIVE AGENT 01/10/2025 9:27 PM INVESTIGATIVE AGENT Melida Asher CENTER DIRECTOR LEAD TEACHER LAB BLOOD ORDERABL ES Final Result Performing Organization Address [facility] [place] [address] * (ABNORMAL) Basic metabolic panel (01/10/2025 8:56 PM INVESTIGATIVE AGENT) [facility] Sodium 140 135 - 145 mmol/L Potassium, pl 4.3 3.3 - 4.9 mmol/L [facility] Chloride 105 97 - 110 mmol/L [facility] CO2 21(L) 22 - 32 mmol/L [facility] Anion gap 14 2 - 15 mmol/L [facility] BUN 21 6 - 25 mg/dL [facility] Creatinine 1.63(H) 0.60 - 1.10 mg/dL [facility] Glucose 124 70 - 199 mg/dL [facility] Comment: Interpretive Data Fasting glucose >/= [...] 2022. Calcium 9.0 8.5 - 10.3 mg/dL [facility] Blood 01/10/2025 8:56 PM INVESTIGATIVE AGENT 01/10/2025 9:27 PM INVESTIGATIVE AGENT Melida Asher CENTER DIRECTOR LEAD TEACHER LAB BLOOD ORDERABL ES Final Result [facility] Department [place] [address] * POCT glucose (01/10/2025 7:00 PM INVESTIGATIVE AGENT) [facility] Signature Glucose, POC 151 70 - 199 mg/dL Blood 01/10/2025 7:00 PM INVESTIGATIVE AGENT 01/10/2025 7:00 PM INVESTIGATIVE AGENT Bethany Laurent DO LAB POCT ORDERABLES - DEVICE Final Result [facility] [place] [address] * Critical Care (01/10/2025 6:00 PM INVESTIGATIVE AGENT) Narrative Gautam Willard MD - 01/10/2025 6:00 PM INVESTIGATIVE AGENT Gautam Willard MD 01/11/2025 6:19 AM Critical [...] plan with the ICU team and other medical/security sales consultant staff, making frequent assessments and decisions [...] Result * POCT glucose (01/10/2025 3:00 PM INVESTIGATIVE AGENT) Glucose, POC 136 70 - 199 mg/dL Blood 01/10/2025 3:00 PM INVESTIGATIVE AGENT 01/10/2025 3:00 PM INVESTIGATIVE AGENT us Bethany Laurent DO LAB POCT ORDERABLES - DEVICE Final Result [facility] Department [place] [address] * CT Head WO Contrast (01/10/2025 2:09 PM INVESTIGATIVE AGENT) Anatomical Region Laterality Modality Head and Neck N/A Computed Tomogra phy 01/10/2025 3:23 PM INVESTIGATIVE AGENT Impressions 01/10/2025 5:52 PM INVESTIGATIVE AGENT 1. Stable right cerebral convexity subdural hematoma with unchanged, minimal 3 mm leftward midline shift. 2. Stable right parietotemoporal scalp hematoma. Dictated by: Lisbeth Muñoz MD The radiology attending physician has personally reviewed this study, and had reviewed and/or edited this written report and agrees with it. Electronically signed by: Kody Crowe MD Narrative 01/10/2025 5:52 PM INVESTIGATIVE AGENT EXAMINATION: CT head without contrast HISTORY: Fall [...] by: Kody Crowe MD us Melida Asher CENTER DIRECTOR LEAD TEACHER IMG CT PROCEDURES Final Result * US Carotids Duplex Bilateral (01/10/2025 11:28 AM INVESTIGATIVE AGENT) Anatomical Region Laterality Modality Vascular Bilateral Ultrasound 01/10/2025 9:11 AM INVESTIGATIVE AGENT Narrative 01/10/2025 10:30 PM INVESTIGATIVE AGENT [facility] - Department of Vascular Surgery, Vascular Laboratory [address] [place] [id number] Carotid Duplex Ultrasound Report Patient Name: NUPUR RAMIREZ R : 1955 (69y 7m) Study Date: 01/10/2025 9:11:08 AM Gender: F Tech: Location: [id number] Ref Provider: FARZANA HUDSON Quality: Adequate Order [...] LT VERT PSV 60 cm/sec FINDINGS: Performing Microstrategy Developer: Fatimah Swanson RVT, RDMS. Rt Common Carotid [...] Leland Spence MD FACS 01/10/2025 9:33:12 PM INVESTIGATIVE AGENT Procedure Note Leland Spence MD - 01/10/2025 [facility] - Department of Vascular Surgery,Vascular Laboratory [address] [place] [address] Carotid Duplex Ultrasound Report Patient Name: NUPUR RAMIREZ R : 1955 (69y 7m) Study Date: 01/10/2025 9:11:08 AM Gender: F Tech: Location: [id number] Ref Provider: FARZANA HUDSON Quality: Adequate Order [...] LT VERT PSV 60 cm/sec FINDINGS: Performing Microstrategy Developer: Fatimah Swanson RVT, ALIRIO. Rt Common Carotid Artery: Duplex imaging [...] above. Electronically Signed By: Leland Spence MD LOCATED WITHIN [facility] 01/10/2025 9:33:12 PM INVESTIGATIVE AGENT us Farzana Hudson NP IMG US PROCEDURES Final Resul t * POCT glucose (01/10/2025 11:02 AM INVESTIGATIVE AGENT) Glucose, POC 135 70 - 199 mg/dL Blood 01/10/2025 11:0 2 AM INVESTIGATIVE AGENT 01/10/2025 11:02 AM INVESTIGATIVE AGENT us Bethany Laurent DO LAB POCT ORDERABLES - DEVICE Final Result [facility] Department [place] [address] * TRANSTHORACIC ECHO (TTE) COMPLETE W DOPPLER/CF W CONTRAST (01/10/2025 8:25 AM INVESTIGATIVE AGENT) Anatomical Region Laterality Modality Ultrasound 01/10/2025 7:48 AM INVESTIGATIVE AGENT Narrative 01/10/2025 8:38 AM INVESTIGATIVE AGENT [facility] [place] [address] Transthoracic Echocardiographic Report Patient Name: NUPUR RAMIREZ R : 1955 (69y 7m) Gender: F Study Date: 01/10/2025 07:48:16 AM Ht(Inch): 65 Wt(Lb): 149.91 BSA: 1.77 Microstrategy Developer: Reina Varghese [facility] Location: [id number] Order Provider: FARZANA HUDSON Heart Rate: 89 BMI: 24.94 BP: 100 / 82 Quality: The study images were of technically adequate quality. Ref Provider: FARZANA HUDSON PROCEDURES: Echocardiographic Report: ([id number], [id number]) Transthoracic complete echo with strain imaging and [...] By: Darinel Franco M.D. 01/10/2025 8:37:57 AM INVESTIGATIVE AGENT Electronically Signed By: Darinel Franco M.D. 01/10/2025 8:37:57 AM INVESTIGATIVE AGENT Procedure Note Darinel Franco MD PhD - 01/10/2025 [facility] Cardiac [place] [address] Transthoracic Echocardiographic Report Patient Name: NUPUR RAMIREZ R : 1955 (69y 7m) Gender: F Study Date: 01/10/2025 07:48:16 AM Ht(Inch): 65 Wt(Lb): 149.91 BSA: 1.77 Microstrategy Developer: Reina Varghese RD,[facility] Location: [id number] OrderProvider: FARZANA HUDSON Heart Rate: 89 BMI: 24.94 BP: 100 / 82 Quality: The study images were oftechnically adequate quality. Ref Provider: FARZANA HUDSON PROCEDURES: Echocardiographic Report: ([id number], [id number]) Transthoracic complete echo withstrain imaging and contrast, [...] LA Length 2C 5.63 cm MV Decel Gssv466.56 msec [ 104.00 - 258.00 ] LA [...] By: Darinel Franco M.D. 01/10/2025 8:37:57 AM INVESTIGATIVE AGENT Electronically Signed By: Darinel Franco M.D. 01/10/2025 8:37:57 AM INVESTIGATIVE AGENT us Farzana Hudson NP CV ECHO PROCEDURES Final Resu lt * Critical Care (01/10/2025 8:10 AM INVESTIGATIVE AGENT) Narrative Beverly Mayo MD - 01/10/2025 8:10 AM INVESTIGATIVE AGENT Beverly Mayo MD 01/10/2025 6:04 PM Critical [...] plan with the ICU team and other medical/security sales consultant staff, making frequent assessments and decisions [...] Result * POCT glucose (01/10/2025 6:53 AM INVESTIGATIVE AGENT) Glucose, POC 148 70 - 199 mg/dL Blood 01/10/2025 6:53 AM INVESTIGATIVE AGENT 01/10/2025 6:53 AM INVESTIGATIVE AGENT Bethany Laurent DO LAB POCT ORDERABLES - DEVICE Final Result Performing Organization Address [facility] Co de Phone Number [facility] [employer] [place] [address] * POCT glucose (01/10/2025 2:59 AM INVESTIGATIVE AGENT) Glucose, POC 117 70 - 199 mg/dL Blood 01/10/2025 2:59 AM INVESTIGATIVE AGENT 01/10/2025 2:59 AM INVESTIGATIVE AGENT Bethany Laurent DO LAB POCT ORDERABLES - DEVICE Final Result Performing Organization Address [facility] Co de Phone Number [facility] [place] [address] * POCT glucose (01/09/2025 11:08 PM INVESTIGATIVE AGENT) Glucose, POC 107 70 - 199 mg/dL Blood 01/09/2025 11:0 8 PM INVESTIGATIVE AGENT 01/09/2025 11:08 PM INVESTIGATIVE AGENT Bethany Flanagan Millerkorey DO LAB POCT ORDERABLES - DEVICE Final Result Performing Organization Address [facility] Co de Phone Number [facility] [place] [address] * POCT glucose (01/09/2025 7:25 PM INVESTIGATIVE AGENT) Pathologist [facility] Glucose, POC 93 70 - 199 mg/dL Blood 01/09/2025 7:25 PM INVESTIGATIVE AGENT 01/09/2025 7:25 PM INVESTIGATIVE AGENT us Bethany Laurent DO LAB POCT ORDERABLES - DEVICE Final Result Performing Organization Address City/[facility] Co de Phone Number [facility] Department [place] [address] * (ABNORMAL) eGFR (01/09/2025 6:30 PM INVESTIGATIVE AGENT) [facility] eGFR 40(L) >=60 mL/min/1. 73 m2 Comment: [...] last reviewed 2021. Blood 01/09/2025 6:30 PM INVESTIGATIVE AGENT 01/09/2025 6:38 PM INVESTIGATIVE AGENT us Farzana Hudson CENTER DIRECTOR LEAD TEACHER LAB BLOOD ORDERABLES Final Re sult Performing Organization Address City/[facility]/ZIP Co de Phone Number [facility] Department [place] [address] * Lactate, whole blood (01/09/2025 6:30 PM INVESTIGATIVE AGENT) [facility] Lactate, bld 1.3 0.7 - 2.0 mmol/L Blood 01/09/2025 6:30 PM INVESTIGATIVE AGENT 01/09/2025 6:35 PM INVESTIGATIVE AGENT us Farzana Hudson CENTER DIRECTOR LEAD TEACHER LAB BLOOD ORDERABLES Final Re sult [facility] [place] [address] * (ABNORMAL) CBC without differential (01/09/2025 6:30 PM INVESTIGATIVE AGENT) [facility] WBC 9.7 3.8 - 9.9 K/cumm Hgb 9.4(L) 11.9 - 15.5 g/dL [facility] Hct 29.6(L) 35.6 - 45.5 % [facility] Plt 300 150 - 400 K/cumm [facility] MPV 10.0 9.1 - 12.3 fL [facility] RBC 3.56(L) 3.90 - 5.20 M/cumm [facility] MCV 83.1 81.3 - 96.4 fL [facility] MCH 26.4(L) 27.1 - 33.3 pg [facility] MCHC 31.8(L) 32.3 - 35.7 g/dL [facility] RDW CV 13.6 11.1 - 14.9 % [facility] RDW SD 41.1 35.7 - 48.1 fL [facility] NRBC abs 0.00 0.00 - 0.01 K/cumm [facility] Blood 01/09/2025 6:30 PM INVESTIGATIVE AGENT 01/09/2025 6:38 PM INVESTIGATIVE AGENT us Farzana Hudson CENTER DIRECTOR LEAD TEACHER LAB BLOOD ORDERABLES Final Re sult [facility] [place] [address] * (ABNORMAL) Phosphorus (01/09/2025 6:30 PM INVESTIGATIVE AGENT) [facility] Phosphorus, pl 5.2(H) 2.3 - 4.5 mg/dL Blood 01/09/2025 6:30 PM INVESTIGATIVE AGENT 01/09/2025 6:38 PM INVESTIGATIVE AGENT Farzana Hudson CENTER DIRECTOR LEAD TEACHER LAB BLOOD ORDERABLES Final Re sult Performing Organization Address [facility] Co de Phone Number [facility] Department [place] [address] * Magnesium (01/09/2025 6:30 PM INVESTIGATIVE AGENT) [facility] Magnesium 1.8 1.4 - 2.5 mg/dL Blood 01/09/2025 6:30 PM INVESTIGATIVE AGENT 01/09/2025 6:38 PM INVESTIGATIVE AGENT Farzana Hudson CENTER DIRECTOR LEAD TEACHER LAB BLOOD ORDERABLES Final Re sult Performing Organization Address [facility] de Phone Number [facility] Department [place] [address] * (ABNORMAL) Comprehensive metabolic panel (01/09/2025 6:30 PM INVESTIGATIVE AGENT) [facility] Sodium 140 135 - 145 mmol/L Potassium, pl 4.5 3.3 - 4.9 mmol/L [facility] Comment:Hemolyzed; Potassium value may be falsely elevated by as much as 0.3-0.5 mmol/L. Suggest redraw and reanalysis. Chloride 107 97 - 110 mmol/L [facility] CO2 23 22 - 32 mmol/L [facility] Anion gap 10 2 - 15 mmol/L [facility] BUN 16 6 - 25 mg/dL [facility] Creatinine 1.41(H) 0.60 - 1.10 mg/dL [facility] Glucose 101 70 - 199 mg/dL [facility] Comment: Interpretive Data Fasting glucose >/= [...] 8.8 8.5 - 10.3 mg/dL [facility] Bilirubin, total 0.3 0.1 - 1.2 mg/dL [facility] Protein, pl 6.7 6.5 - 8.5 g/dL [facility] Albumin 3.3(L) 3.5 - 5.0 g/dL [facility] Alk phos 125 40 - 130 Units/L [facility] ALT 13 7 - 45 Units/L [facility] AST 26 10 - 45 Units/L [facility] Comment:Hemolyzed; result ma y be falsely elevated Blood 01/09/2025 6:30 PM INVESTIGATIVE AGENT 01/09/2025 6:38 PM INVESTIGATIVE AGENT us Farzana Hudson CENTER DIRECTOR LEAD TEACHER LAB BLOOD ORDERABLES Final Re sult [facility] Department [place] [address] * POCT glucose (01/09/2025 6:16 PM INVESTIGATIVE AGENT) [facility] Signature Glucose, POC 92 70 - 199 mg/dL Blood 01/09/2025 6:16 PM INVESTIGATIVE AGENT 01/09/2025 6:16 PM INVESTIGATIVE AGENT us Bethany Laurent DO LAB POCT ORDERABLES - DEVICE Final Result [facility] Department [place] [address] * Critical Care (01/09/2025 6:00 PM INVESTIGATIVE AGENT) Narrative Radha Wong MD - 01/09/2025 6:00 PM INVESTIGATIVE AGENT Radha Wong MD 01/16/2025 11:34 PM Critical [...] plan with the ICU team and other medical/security sales consultant staff, making frequent assessments and decisions [...] medical record us Latricia RIGGINS IN CLINIC/BEDSIDE ORDChauncey SPANGLER Final Result * Direct antiglobulin test (01/09/2025 2:51 PM INVESTIGATIVE AGENT) Direct Meeta BS Interpretation Negative Blood 01/09/2025 2:51 PM INVESTIGATIVE AGENT 01/09/2025 2:51 PM INVESTIGATIVE AGENT us Eder Palomo MD LAB BLOOD BANK TEST ORDE RABLES Final Result [facility] Department [place] [address] * POCT glucose (01/09/2025 2:26 PM INVESTIGATIVE AGENT) Glucose, POC 106 70 - 199 mg/dL Blood 01/09/2025 2:26 PM INVESTIGATIVE AGENT 01/09/2025 2:26 PM INVESTIGATIVE AGENT Eder Palomo MD LAB POCT ORDERABLES - DE VICE Final Result Performing Organization Address City/[facility] [place] [address] * Transfusion reaction immediate (01/09/2025 2:24 PM INVESTIGATIVE AGENT) Pathologist [facility] Product Unit Number [id number] Type of Product Transfused platelet [facility] Clerical check satisfactory [facility] Visible Serum Icterus No Visible Icterus [facility] Visible Serum Hemoglobin No Visible Hgb [facility] ur hemoglobin Not Performed [facility] Blood 01/09/2025 2:24 PM INVESTIGATIVE AGENT 01/09/2025 2:50 PM INVESTIGATIVE AGENT Arnoldo Garcia MD LAB BLOOD BANK TEST ORDER ALLAN Final Result Performing Organization Address [facility] Co de Phone Number [facility] [place] [employer] [place] [address] * Transfusion reaction evaluation with specimen collection (01/09/2025 2:24 PM INVESTIGATIVE AGENT) [facility] Recommended Product Consider transfusing slowly along with careful monitoring. Recommened Pre Medication Consider premedication with acetaminophen [facility] Final Analysis of Transfusion Reaction Febrile nonhemolytic transfusion reaction [facility] Blood 01/09/2025 2:24 PM INVESTIGATIVE AGENT 01/09/2025 2:50 PM INVESTIGATIVE AGENT Arnoldo Garcia MD LAB BLOOD BANK TEST ORDER ALLAN Final Result Performing Organization Address City/[facility]/ZIP Co de Phone Number [facility] [place] [employer] [address] * Type and screen (01/09/2025 2:24 PM INVESTIGATIVE AGENT) Pathologist [facility] Meeta, indirect Negative ABO Rh A Positive [facility] Blood 01/09/2025 2:24 PM INVESTIGATIVE AGENT 01/09/2025 2:50 PM INVESTIGATIVE AGENT Narrative DARINEL CRESPO - 01/09/2025 3:53 PM INVESTIGATIVE AGENT Has the patient had Daratumumab or Isatuximab in the past 6 months?->Unknown Deep Kamara MD LAB BLOOD BANK TEST ORDERA BLES Final Result DARINEL [facility] Department [place] [address] * IR Angio Selective Carotid ACCURACY EXPERT Right (01/09/2025 1:27 PM INVESTIGATIVE AGENT) Anatomical Region Laterality Modality Neck Right Radio Fluoroscop y 01/10/2025 8:17 AM INVESTIGATIVE AGENT Impressions 01/10/2025 8:26 AM INVESTIGATIVE AGENT 1. The right middle meningeal artery has [...] Raymond Kinsey M.D. Narrative 01/10/2025 8:26 AM INVESTIGATIVE AGENT DIAGNOSTIC CEREBRAL ANGIOGRAM CLINICAL INDICATION: 69 years-old [...] ANESTHESIA: Moderate sedation DEVICES: 21-gauge needle 6 Ni[place]an Merit Prelude IDeal sheath and mini guidewire 6 Fr [place] Strategic Royaltytronic RIST long sheath 5.Fr Penumbra Osei 2 catheter Terumo Glidewire Wisner 1018 microcatheter Synchro Select 014 microwire TR [...] and were stored to PACS.. The 6 Niuean Terumo Glidesheath 25cm was then introduced into the right radial artery over the mini guidewire. A cocktail of Verapamil (2.5 mg), Nitroglycerin (200 mcg), and Heparin (3000 units) was slowly injected into the right radial artery through the sheath over several minutes, with close monitoring of blood pressure. A coaxial assembly of 6 Fr [place] Strategic Royaltytronic RIST radial access sheath and 5 Fr SquareTradeumbra Osei 2 catheter and Terumo Glidewire were [...] external carotid artery. A coaxial assembly of Wisner 1018 microcatheter and Synchro Select 014 microwire [...] ANESTHESIA: Moderate sedation DEVICES: 21-gauge needle 6 Ni[place]an Merit Prelude IDeal sheath and mini guidewire 6 Fr [place] Strategic Royaltytronic RIST long sheath 5.Fr Penumbra Osei 2 catheter Terumo Glidewire Wisner 1018 microcatheter Synchro Select 014 microwire TR [...] and were stored to PACS.. The 6 Niuean Terumo Glidesheath 25cm was then introduced into the right radial artery over the mini guidewire. A cocktail of Verapamil (2.5 mg), Nitroglycerin (200 mcg), and Heparin (3000 units) was slowly injected into the right radial artery through the sheath over several minutes, with close monitoring of blood pressure. A coaxial assembly of 6 Fr Medtronic RIST radial access sheath and 5 Fr Penumbra Osei 2 catheter and Terumo Glidewire were [...] external carotid artery. A coaxial assembly of Wisner 1018 microcatheter and Synchro Select 014 microwire [...] by: Raymond Kinsey M.D. Mihai Brar MD IM IR PROCEDURES Aracelis l Result * Transfuse platelets (01/09/2025 10:40 AM INVESTIGATIVE AGENT) Blood us Fracisco Liang MD PhD BLOOD TRANSFUSION O RDERABLES Final Result D[facility]INEL [facility] Department [place] [address] * (ABNORMAL) Urinalysis reflex to microscopic and culture Urine (01/09/2025 10:25 AM INVESTIGATIVE AGENT) Color, ur Straw Yellow Clarity, ur Clear Clear [facility] Specific gravity, ur 1.035(H) 1.003 - 1.030 [facility] pH, urine 6.0 [facility] Comment: Interpretive Data U rine pH is affected by diet, medications, systemic acid-base disturbances, and renal tubular function. pH may affect urinary stone formation. For example, urine pH below 6.0 may help reduce the tendency for calcium phosphate stones and pH greater than 6.0 may reduce the tendency for uric acid stone formation. Source: [facility] Current Interpretive Data was last revised on 2017 Protein, ur ql Trace Negative [facility] Glucose, ur ql Negative Negative [facility] Ketones, ur Negative Negative [facility] Bilirubin, ur Negative Negative [facility] Blood, ur Negative Negative [facility] Urobilinogen, ur <2.0 <2.0 mg/dL [facility] Nitrite, ur Negative Negative [facility] Leukocyte esterase, ur Negative Negative [facility] UA reflex comment Reflex conditions for microscopic UA and culture not met. [facility] Urine 01/09/2025 10:2 5 AM INVESTIGATIVE AGENT 01/09/2025 10:31 AM INVESTIGATIVE AGENT us Fracisco Liang MD PhD LAB MICROBIOLOGY - GENERAL ORDERABLES Final Result D[facility]INEL [facility] Department [place] [address] * Transfuse platelets (01/09/2025 10:08 AM INVESTIGATIVE AGENT) Blood Fracisco Liang MD PhD BLOOD TRANSFUSION O RDERABLES Final Result [facility] Department [place] [address] * CT Head WO Contrast (01/09/2025 9:17 AM INVESTIGATIVE AGENT) Anatomical Region Laterality Modality Head and Neck N/A Computed Tomogra phy 01/09/2025 10:2 5 AM INVESTIGATIVE AGENT Impressions 01/09/2025 10:25 AM INVESTIGATIVE AGENT Interval mild decrease in volume of subdural hematoma along the right cerebral convexity. Right parietal scalp hematoma. Electronically signed by: Daniel Bueno MD, PHD Narrative 01/09/2025 10:25 AM INVESTIGATIVE AGENT EXAMINATION: CT head without contrast HISTORY: Subdural [...] Electronically signed by: Daniel Bueno MD, PHD us Fracisco Liang MD PhD IMG CT PROCEDURES F inal Result * [place] CRITICAL CARE ILL/INJURED PATIENT INIT 30-74 MIN (01/09/2025 7:50 AM INVESTIGATIVE AGENT) Narrative Jeff Slaughter MD - 01/09/2025 7:50 AM INVESTIGATIVE AGENT Jeff Slaughter MD 01/09/2025 7:52 AM Critical [...] Troponin I high-sensitivity 2-hour (01/09/2025 6:47 AM INVESTIGATIVE AGENT) Trop I hs 5 <=17 ng/L Comment: Interpretive Data For further hscTnI resources including the diagnostic algorithm and an aid in interpretation, copy and paste this link: https://bjhlab.testcatalog.org/show/hsTrop-1 Current Interpretive Data last revised 2020. Trop I hs delta -1 ng/L [facility] Trop I hs interp Insignificant [facility] H Blood 01/09/2025 6:47 AM INVESTIGATIVE AGENT 01/09/2025 7:45 AM INVESTIGATIVE AGENT us Fracisco Liang MD PhD LAB BLOOD ORDERABLE S Final Result Performing Organization Address [facility] Co de Phone Number [facility] Department [place] [address] * Check Sample (01/09/2025 6:39 AM INVESTIGATIVE AGENT) ABO Rh A Positive [facility] HCLL OTHER 01/09/2025 6:39 AM INVESTIGATIVE AGENT 01/09/2025 7:07 AM INVESTIGATIVE AGENT Jeff Slaughter MD LAB BLOOD ORDERA BLES Final Result Performing Organization Address [facility] de Phone Number [facility] Department [place] [address] [facility] * XR Clavicle Bilateral Complete (01/09/2025 6:15 AM INVESTIGATIVE AGENT) Anatomical Region Laterality Modality Clavicle, Chest Bilateral Computed Radiogr aphy 01/09/2025 6:25 AM INVESTIGATIVE AGENT Impressions 01/09/2025 7:07 AM INVESTIGATIVE AGENT There is an acute minimally displaced comminuted [...] and agrees with it. Electronically signed by: bAelardo Baca M.D. Narrative 01/09/2025 7:07 AM INVESTIGATIVE AGENT EXAMINATION: XR CLAVICLE BILATERAL COMPLETE HISTORY: clavicle [...] Result * ECG 12-LEAD (01/09/2025 5:54 AM INVESTIGATIVE AGENT) Narrative [facility] - 01/09/2025 5:54 AM INVESTIGATIVE AGENT Jeff Slaughter MD 01/09/2025 5:54 AM ECG 12 lead Date/Time: 01/09/2025 5:54 AM Performed by: Jeff Slaughter MD Authorized by: Fracisco Liang MD PhD Comments: Normal sinus rhythm rate 86, normal axis, normal AK, QRS, QTC intervals, no significant ST or T-wave changes. Procedure Note Jeff Slaughter MD - 01/09/2025 5:54 AM CST Procedure ECG 12 lead Date/Time: 01/09/2025 5:54 AM Performed by: Jeff Slaughter MD Authorized by: Fracisco Liang MD PhD Comments: Normal sinus rhythm rate 86, normal axis, normal AK, QRS, QTCintervals, no significant ST or T-wave changes. Jeff Slaughter MD 01/09/25 0554 us Fracisco Liang MD PhD ECG ORDERABLES Fin al Result [facility] * CT Recon Thoracic and Lumbar Spine W Contrast (C) (01/09/2025 5:49 AM INVESTIGATIVE AGENT) Anatomical Region Laterality Modality Spine N/A Computed Tomogra phy 01/09/2025 6:06 AM INVESTIGATIVE AGENT Impressions 01/09/2025 10:08 AM INVESTIGATIVE AGENT No evidence of acute fracture in the thoracic or lumbar spine. Dictated by: Kannan Spence M.D. The radiology attending physician has personally reviewed this study, and had reviewed and/or edited this written report and agrees with it. Electronically signed by: Jamari Rai M.D. Narrative 01/09/2025 10:08 AM INVESTIGATIVE AGENT EXAMINATION: 1. CT of the thoracic spine [...] Abdomen Pelvis W Contrast (01/09/2025 5:49 AM INVESTIGATIVE AGENT) Anatomical Region Laterality Modality Body N/A Computed Tomogra phy 01/09/2025 6:12 AM INVESTIGATIVE AGENT Impressions 01/09/2025 7:01 AM INVESTIGATIVE AGENT No acute abnormality within the chest, abdomen, or pelvis. Dictated by: Corbin Galeana MD The radiology attending physician has personally reviewed this study, and had reviewed and/or edited this written report and agrees with it. Electronically signed by: Abelardo Baca M.D. Narrative 01/09/2025 7:01 AM INVESTIGATIVE AGENT EXAMINATION: Computed tomography of the chest, abdomen [...] Prepare platelets: 2 Units (01/09/2025 5:18 AM INVESTIGATIVE AGENT) [facility] Product code [id number] Unit Number [id number] [employer] Product Blood Type APOS Carbonated Content [facility] Dispense Status PRESUMED [facility]SFUSED [facility] Product code [id number] [facility] Unit Number [id number] [facility] Product Blood Type APOS [facility] Dispense Status TRANSFUSED WITH REACTION [facility] Blood Venous blood specimen / Unknown 01/09/2025 5:18 AM INVESTIGATIVE AGENT 01/09/2025 5:18 AM INVESTIGATIVE AGENT Narrative [facility] - 01/09/2025 9:01 PM INVESTIGATIVE AGENT Are special requirements needed? (all products are leukoreduced)->No Date required:-[id number] PLT # of Units:-2-Units Reasons:-Bleeding/pre-op with platelet dysfunction} Fracisco Liang MD PhD BLOOD BANK PRODUCT ORDERABLES Final Result Performing Organization Address [facility] Co de Phone Number [facility] [place] [address] * Troponin I high-sensitivity series (baseline, 2hr, 4hr, 6hr) (01/09/2025 5:12 AM INVESTIGATIVE AGENT) [facility] Trop I hs 6 <=17 ng/L Comment: Interpretive Data For further hscTnI resources including the diagnostic algorithm and an aid in interpretation, copy and paste this link: [email or web address]/[email or web address] Current Interpretive Data last revised 2020. Blood 01/09/2025 5:12 AM INVESTIGATIVE AGENT 01/09/2025 5:28 AM INVESTIGATIVE AGENT Fracisco Liang MD PhD LAB BLOOD ORDERABLE S Final Result Performing Organization Address [facility] de Phone Number [facility] [place] [address] * (ABNORMAL) Differential, auto (01/09/2025 5:12 AM INVESTIGATIVE AGENT) [facility] Neutrophil abs 4.9 1.5 - 6.5 K/cumm Imm gran abs 0.0 0.0 - 0.1 K/cumm [facility] Lymphocyte abs 2.8 0.8 - 3.3 K/cumm [facility] Monocyte abs 0.6 0.2 - 0.8 K/cumm [facility] Eosinophil abs 1.0(H) 0.0 - 0.5 K/cumm [facility] Basophil abs 0.1 0.0 - 0.1 K/cumm [facility] Neutrophil pct 51.8 % [facility] Comment: Interpretive Data Percent cell count reference ranges are not reported, since discordance with absolute values may lead to misinterpretation of CBC data. Current Interpretive Data was last revised on 2018. Imm gran pct 0.2 % [facility] Comment: Interpretive Data Percent cell count reference ranges are not reported, since discordance with absolute values may lead to misinterpretation of CBC data. Current Interpretive Data was last revised on 2018. Lymphocyte pct 30.0 % [facility] Comment: Interpretive Data Percent cell count reference ranges are not reported, since discordance with absolute values may lead to misinterpretation of CBC data. Current Interpretive Data was last revised on 2018. Monocyte pct 6.8 % [facility] Comment: Interpretive Data Percent cell count reference ranges are not reported, since discordance with absolute values may lead to misinterpretation of CBC data. Current Interpretive Data was last revised on 2018. Eosinophil pct 10.7 % [facility] Comment: Interpretive Data Percent cell count reference ranges are not reported, since discordance with absolute values may lead to misinterpretation of CBC data. Current Interpretive Data was last revised on 2018. Basophil pct 0.5 % [facility] Comment: Interpretive Data Percent cell count reference ranges are not reported, since discordance with absolute values may lead to misinterpretation of CBC data. Current Interpretive Data was last revised on 2018. Blood 01/09/2025 5:12 AM INVESTIGATIVE AGENT 01/09/2025 5:28 AM INVESTIGATIVE AGENT us Fracisco Liang MD PhD LAB BLOOD ORDERABLE S Final Result [facility] Department [place] [address] * Respiratory pathogen panel Nasopharyngeal (01/09/2025 5:12 AM INVESTIGATIVE AGENT) Pathologist [facility] Influenza A RNA Not Detected Not Detected Influenza B RNA Not Detected Not Detected [facility] RSV RNA Not Detected Not Detected [facility] COVID-19 RNA Not Detected Not Detected [facility] Coronavirus 229E RNA Not Detected Not Detected [facility] Coronavirus HKU1 RNA Not Detected Not Detected [facility] Coronavirus NL63 RNA Not Detected Not Detected [facility] Coronavirus OC43 RNA Not Detected Not Detected [facility] Adenovirus DNA Not Detected Not Detected [facility] Metapneumovirus RNA Not Detected Not Detected [facility] Rhinovirus/Enterov irus RNA Not Detected Not Detected [facility] Parainfluenza 1 RNA Not Detected Not Detected [facility] Parainfluenza 2 RNA Not Detected Not Detected [facility] Parainfluenza 3 RNA Not Detected Not Detected [facility] Parainfluenza 4 RNA Not Detected Not Detected [facility] B. pertussis DNA Not Detected Not Detected [facility] B. parapertussis DNA Not Detected Not Detected [facility] C. pneumoniae DNA Not Detected Not Detected [facility] M. pneumoniae DNA Not Detected Not Detected [facility] Nasopharyngeal 01/09/2025 5: 12 AM INVESTIGATIVE AGENT 01/09/2025 6:14 AM INVESTIGATIVE AGENT Narrative [facility] - 01/09/2025 6:50 AM INVESTIGATIVE AGENT Is the Patient experiencing symptoms consistent with COVID?->Yes Surveillance testing for transplant patient?->No Interpretive Data The VitaPortal FilmArray Respiratory Panel (RP2.1) assay is a [...] assay has FDA clearance for testing of CENTER DIRECTOR LEAD TEACHER swabs. The performance of additional specimen types has been assessed by the performing laboratory. The performance characteristics of this assay have been determined by [facility] Molecular Infectious Disease Laboratory. Current interpretive data was last revised on 22. us Fracisco Liang MD PhD LAB MICROBIOLOGY - GENERAL ORDERABLES Final Result [facility] One [facility] Department [place] [address] * (ABNORMAL) CBC with auto differential (01/09/2025 5:12 AM INVESTIGATIVE AGENT) WBC 9.4 3.8 - 9.9 K/cumm Hgb 9.4(L) 11.9 - 15.5 g/dL [facility] Hct 29.2(L) 35.6 - 45.5 % [facility] Plt 258 150 - 400 K/cumm [facility] MPV 10.1 9.1 - 12.3 fL [facility] RBC 3.52(L) 3.90 - 5.20 M/cumm [facility] MCV 83.0 81.3 - 96.4 fL [facility] MCH 26.7(L) 27.1 - 33.3 pg [facility] MCHC 32.2(L) 32.3 - 35.7 g/dL [facility] RDW CV 13.4 11.1 - 14.9 % [facility] RDW SD 40.0 35.7 - 48.1 fL [facility] NRBC abs 0.00 0.00 - 0.01 K/cumm [facility] Blood 01/09/2025 5:12 AM INVESTIGATIVE AGENT 01/09/2025 5:28 AM INVESTIGATIVE AGENT Fracisco Liang MD PhD LAB BLOOD ORDERABLE S Final Result Performing Organization Address [facility] Co de Phone Number [facility] Department [place] [address] * Type and screen (01/09/2025 5:12 AM INVESTIGATIVE AGENT) Meeta, indirect Negative ABO Rh A Positive [facility] Blood 01/09/2025 5:12 AM INVESTIGATIVE AGENT 01/09/2025 5:31 AM INVESTIGATIVE AGENT Narrative [facility] - 01/09/2025 6:32 AM INVESTIGATIVE AGENT Has the patient had Daratumumab or Isatuximab in the past 6 months?->Unknown Fracisco Liang MD PhD LAB BLOOD BANK TEST ORDERABLES Final Result Performing Organization Address [facility] de Phone Number [facility] Department [place] [address] * XR Pelvis 1 or 2 Views (01/09/2025 5:08 AM INVESTIGATIVE AGENT) Anatomical Region Laterality Modality Body, Pelvis N/A Computed Radiogr aphy 01/09/2025 5:12 AM INVESTIGATIVE AGENT Impressions 01/09/2025 7:43 PM INVESTIGATIVE AGENT 1. No acute fracture. Dictated by: Sebastián Fernandez MD The radiology attending physician has personally reviewed this study, and had reviewed and/or edited this written report and agrees with it. Electronically signed by: Jacquelyn Dow M.D. Narrative 01/09/2025 7:43 PM INVESTIGATIVE AGENT EXAMINATION: XR PELVIS 1 OR 2 VIEWS [...] it. Electronically signed by: Jacquelyn Dow M.D. us Jeff Slaughter MD IMG XR PROCEDURE S Final Result * CT Cervical Spine WO Contrast (01/09/2025 3:42 AM INVESTIGATIVE AGENT) Anatomical Region Laterality Modality Spine N/A Computed Tomogra phy 01/09/2025 3:52 AM INVESTIGATIVE AGENT Narrative 01/09/2025 3:54 AM INVESTIGATIVE AGENT EXAM DESCRIPTION: CT CERVICAL SPINE WO CONTRAST [...] Deep Quiles M.D. AR: NORA Report ID: [id number] Reading Location: [id number] Procedure Note Deep Quiles MD - 01/09/2025 [...] Electronically signed by Deep Quiles M.D. AR: AR Report ID: [id number] Reading Location: [id number] us Flori Dugan MD IM CT PROCEDURES Final Result * [facility] CRITICAL CARE ILL/INJURED PATIENT INIT 30-74 MIN (01/09/2025 3:41 AM INVESTIGATIVE AGENT) Narrative Flori Dugan MD - 01/09/2025 3:41 AM INVESTIGATIVE AGENT Flori Dugan MD 01/09/2025 4:22 AM Critical [...] time documenting in the medical record. us Flori Dugan MD IN CLINIC/BEDSIDE ORDERABLES Fin al Result * XR Chest 1 Vw Portable (01/09/2025 3:08 AM INVESTIGATIVE AGENT) Anatomical Region Laterality Modality Body, Chest N/A Computed Radiogr aphy 01/09/2025 3:32 AM INVESTIGATIVE AGENT Narrative 01/09/2025 3:32 AM INVESTIGATIVE AGENT EXAM DESCRIPTION: XR CHEST 1 VIEW REASON [...] Deep Quiles M.D. AR: NORA Report ID: [id number] Reading Location: [id number] Procedure Note Deep Quiles MD - 01/09/2025 [...] Deep Quiles M.D. AR: NORA Report ID: [id number] Reading Location: [place] [address] us Flori Dugan MD IMG XR PROCEDURES Final Result * XR Shoulder Right 2 or More Views (01/09/2025 3:08 AM INVESTIGATIVE AGENT) Anatomical Region Laterality Modality Upper Extremities, Shoulder Right Comp uted Radiography 01/09/2025 3:30 AM INVESTIGATIVE AGENT Narrative 01/09/2025 3:32 AM INVESTIGATIVE AGENT EXAM DESCRIPTION: XR SHOULDER RIGHT 2 OR [...] Deep Quiles M.D. AR: NORA Report ID: [id number] Reading Location: [id number] Procedure Note Deep Quiles MD - 01/09/2025 [...] Deep Quiles M.D. AR: NORA Report ID: [id number] Reading Location: [place] [address] us Flori Dugan MD IMG XR PROCEDURES Final Result * Protime-INR (01/09/2025 3:05 AM INVESTIGATIVE AGENT) PT 10.8 9.7 - 13.0 sec [facility] INR 1.00 0.90 - 1.20 [facility] Comment: Interpretive data Oral anticoagulant therapeutic ranges: Venous thromboembolism prophylaxis or treatment: 2.0-3.0 CARDIOLOGY Standard range: 2.0-3.0 High-intensity range: 2.5-3.5 Refer to indication-specific guidelines for appropriate target ranges for prosthetic heart valve replacement. Current interpretive data was last revised on 2019. Blood 01/09/2025 3:05 AM INVESTIGATIVE AGENT 01/09/2025 3:08 AM INVESTIGATIVE AGENT Flori Dugan MD LAB BLOOD ORDERABLES Final Resul t [facility] ([place]) 1 [facility] Department [place] [employer] [address] * CT Head WO Contrast (01/09/2025 2:55 AM INVESTIGATIVE AGENT) Anatomical Region Laterality Modality Head and Neck N/A Computed Tomogra phy 01/09/2025 2:59 AM INVESTIGATIVE AGENT Narrative 01/09/2025 3:02 AM INVESTIGATIVE AGENT EXAM DESCRIPTION: CT HEAD WO CONTRAST REASON [...] Deep Quiles M.D. AR: NORA Report ID: [id number] Reading Location: [id number] Procedure Note Deep Quiles MD - 01/09/2025 [...] Deep Quiles M.D. AR: NORA Report ID: [id number] Reading Location: [place] [address] Flori Dugan MD IMG CT PROCEDURES Final Result * POCT glucose (01/09/2025 2:43 AM INVESTIGATIVE AGENT) Glucose, POC 139 70 - 199 mg/dL Blood 01/09/2025 2:43 AM INVESTIGATIVE AGENT 01/09/2025 2:43 AM INVESTIGATIVE AGENT Flori Dugan MD LAB POCT ORDERABLES - DEVICE Fin al Result [facility] ([place] 1 [facility] Department of Laboratories [place], [place] [id number] * (ABNORMAL) eGFR (01/09/2025 2:38 AM INVESTIGATIVE AGENT) eGFR 40(L) >=60 mL/min/1. 73 m2 Comment: [...] last reviewed 2021. Blood 01/09/2025 2:38 AM INVESTIGATIVE AGENT 01/09/2025 2:40 AM INVESTIGATIVE AGENT us Flori Dugan MD LAB BLOOD ORDERABLES Final Resul t [facility] ([place]) 1 [facility] Department [place] [address] * (ABNORMAL) Differential, auto (01/09/2025 2:38 AM INVESTIGATIVE AGENT) Neutrophil abs 4.9 1.5 - 6.5 K/cumm [...] revised on 2018. Blood 01/09/2025 2:38 AM INVESTIGATIVE AGENT 01/09/2025 2:40 AM INVESTIGATIVE AGENT us Flori Dguan MD LAB BLOOD ORDERABLES Final Resul t [facility] ([place]) 1 [facility] Department of Laboratories [place], [place] [id number] * (ABNORMAL) CBC with auto differential (01/09/2025 2:38 AM INVESTIGATIVE AGENT) WBC 8.6 3.8 - 9.9 K/cumm Hgb [...] [facility] ([place]) Blood 01/09/2025 2:38 AM INVESTIGATIVE AGENT 01/09/2025 2:40 AM INVESTIGATIVE AGENT us Flori Dugan MD LAB BLOOD ORDERABLES Final Resul t [facility] ([place]) 1 [facility] Department [place] [address] * (ABNORMAL) Comprehensive metabolic panel (01/09/2025 2:38 AM INVESTIGATIVE AGENT) Sodium 139 135 - 145 mmol/L Potassium, [...] ([place]) Glucose 143 70 - 199 mg/dL [facility] Comment: Interpretive Data Fasting glucose [...] [facility] ([place]) Blood 01/09/2025 2:38 AM INVESTIGATIVE AGENT 01/09/2025 2:40 AM INVESTIGATIVE AGENT us Flori Dugan MD LAB BLOOD ORDERABLES Final Resul t [facility] ([place]) 1 [facility] Department [place] [address] from Last 3 Months Insurance [employer] SENIOR SU[employer]LEMENT MEDICARE MEDICARE [employer] SENIOR SUPPLEMENT MEDICARE [employer] S[employer]IOR [employer]MENT Advance Directives For more information, please contact: [phone] * Full Code (Latest Code Status on File) Date Activated Date Inactivated Comments 01/20/2025 3:10 PM 01/26/2025 2:16 AM * Full Code Date Activated Date Inactivated Comments 01/09/2025 6:15 PM 01/15/2025 8:02 PM * Full Code Date Activated Date Inactivated Comments 06/18/2023 8:41 PM 06/21/2023 4:14 PM * Full Code Date Activated Date Inactivated Comments 05/23/2023 7:48 PM 05/25/2023 7:34 PM Care Teams Fibrous Wallboard Inspector Relationship Specialty Start Date End Date Tatum Rice DO PCP - General 05/30/22
--- OUTSIDE RECORDS SUMMARY | 2025-02-28 14:03 | XMS_ITS | Clinical Summary ---
Author Organization [facility] [address] [facility] Address [address] [place] [address] Care Team Providers Care Doctor Of Podiatric Medicine Name Role Phone Tatum Rice Primary Care Provider Allergies Active Allergy Reactions Criticality Noted Date Comments Acetaminophen-Codeine Nausea and Vomiting,Other (See Comments) Low 03/29/2020 Bupropion Headache,Other (See Comments) Low 04/18/2012 Migraine headaches Migraine headaches caused migraines caused migraines Codeine Nausea and Vomiting,Unknown Low 04/18/2012 Body aches, Body aches Body aches, Body aches bad body ache bad body ache Lisinopril Cough Low 06/27/2018 cough real bad Mite Extract Other (See Comments) Low 03/08/2013 Sinus problems. Sinus problems. Sinus problems. Medications triamcinolone acetonide (KENALOG) 0.1 % Ointment APPLY TO RASH ON LEGS TWICE DAILY 3 Active Insupen Pen Needle 32 gauge x 5/32 Needle 1 Each by Injection route daily. 3 Active montelukast (SINGULAIR) 10 mg tablet Take 10 mg by mouth daily. 2 Active levETIRAcetam (KEPPRA) 500 mg tablet Take 500 mg by mouth 3 times daily. Take 1 tablet in the AM and 2 tablets in the PM 2 Active levothyroxine 50 mcg tablet Take 50 mcg by mouth daily before breakfast. 2 Active gabapentin (NEURONTIN) 300 mg capsule Take 300 mg by mouth. Take 1 capsule by mouth every morning and 2 capsules at bedtime 2 Active cyanocobalamin 1,000 mcg Tablet Take 1,000 mcg by mouth daily. Active DULoxetine (CYMBALTA) 60 mg Capsule, Delayed Release(E.C.) Take 60 mg by mouth daily. 2 Active fluticasone propionate (FLONASE) 50 mcg/spray [place], Suspension nasal inhaler SPRAY TWO (2) (TWO) SPRAYS INTO EACH NOSTRIL ONCE DAILY 3 Active clonazePAM (KlonoPIN) 0.5 mg Tablet Take 0.5 mg by mouth 2 times daily. 2 Active cetirizine (ZyrTEC) 10 mg tablet Take 10 mg by mouth daily. 4 Active atorvastatin (LIPITOR) 80 mg tablet Take 80 mg by mouth daily. 4 Active biotin Tablet Take 5 mg by mouth daily. Active carvediloL (COREG) 12.5 mg tablet Take 12.5 mg by mouth 2 times daily with meals. 4 Active aspirin (SAMINA CHEWABLE) 81 mg Tablet, Chewable Take 81 mg by mouth daily. Active DULoxetine (CYMBALTA) 30 mg Capsule, Delayed Release(E.C.) Take 30 mg by mouth daily. Active acetaminophen (TYLENOL) 325 mg tablet Take 325 mg by mouth every 4 hours as needed. Active asciminib 40 mg Tablet 40 mg. 5 Active Calcium Pantothenate 500 mg Tablet Take 500 mg by mouth. Active chlorthalidone (HYGROTON) 25 mg tablet TAKE ONE (1) (ONE) TABLET BY MOUTH ONCE DAILY 2 Active Fiasp FlexTouch U-100 Insulin 100 unit/mL (3 mL) Insulin Pen See Instructions, 15 each, 3, INJECT SIX (6) UNITS THREE (3) TIMES DAILY PLUS SLIDINGSCALE . MAX DOSE 50 UNITS DAILY, Route to Pharmacy Electronically, [facility] ferguson, [facility]ID-[id number] , Instructions Replace Required Details, 165, cm, 10/30/24 13:23:00 INSTRUMENT TECH, Height, 67.7, kg, 10/30/24 13:23:00 INSTRUMENT TECH, Weight 5 Active Basaglar KwikPen U-100 Insulin 100 unit/mL (3 mL) pen syringe Inject 25 Units by subcutaneous injection. 4 Active insulin lispro (HumaLOG KwikPen Insulin) 100 unit/mL pen syringe 6 unit(s), SubQ, tid with meals, 15 mL, 1, 1, Route to Pharmacy Electronically, [facility] Dm, [id number] , 165, cm, 10/30/24 13:23:00 INSTRUMENT TECH, Height, 67.7, kg, 10/30/24 13:23:00 INSTRUMENT TECH, Weight 4 Active meclizine (ANTIVERT) 25 mg tablet 25 mg. 2 Active metoprolol tartrate (LOPRESSOR) 25 mg tablet Take 25 mg by mouth 2 times daily. 2 Active ondansetron (ZOFRAN) 4 mg Tablet 4 mg. 4 Active clopidogreL (PLAVIX) 75 mg Tablet Take 1 Tablet (75 mg) by mouth daily. 90 Tablet 3 01/07/2025 1:04 PM INSTRUMENT TECH 5 Active Active Problems Patient Care Coordination No te Formatting of this note migh t be different from the original. Vascular Care - Dr. Mark Gates MD, [facility], [facility] Heart and Vascular - [address] [facility] Problem Noted Date Diagnosed Date Stage 3b chronic kidney disease 01/02/2025 Benign essential HTN 01/02/2025 Dyslipidemia 01/02/2025 Encounters Date Type Department Care Team Description 01/20/2025 External Device Data STL ABSTRACTION Provider, Abstract 01/18/2025 External Device Data STL ABSTRACTION Provider, Abstract 01/17/2025 External Device Data STL ABSTRACTION Provider, Abstract 01/15/2025 Abstract [facility] - [address] [place] [address] [address] [facility] [address] [place] [address] Provider, Abstract 01/08/2025 Telephone [facility] - [address] [facility] [address] [address] [facility] [address] [place] [address] Mark Gates MD 01/08 post AIF f/u call mm/at 01/07/2025 9:16 AM INSTRUMENT TECH - 01/07/2025 11:00 AM INSTRUMENT TECH Surgery [facility] Cardiac Hot Car Operator [address] [place] [address] Mark Gates MD Aorta iliac femoral angiography 01/07/2025 8:03 AM INSTRUMENT TECH - 01/07/2025 2:32 PM INSTRUMENT TECH Hospital Encounter [facility] Card[facility] Car Operator [address] [address] [place] [address] Mark Gates MD PAD (peripheral artery disease) Discharge Disposition: Home or Self Care 01/07/2025 External Device Data STL ABSTRACTION Provider, Abstract 01/07/2025 External Device Data STL ABSTRACTION Provider, Abstract 01/07/2025 External Device Data STL ABSTRACTION Provider, Abstract 01/07/2025 Prep for Surgery [facility] - [address] [place] [address] [address] [facility] [address] [place] [address] Flori Wakefield RN 01/07/2025 Telephone [facility] - [address] [facility] [address] [address] [facility] [address] [place] [address] Mark Gates MD 01/07 post intervention will need staged intervention and f/ 01/06/2025 Telephone [facility] - [address] [place] [address] [address] [facility] [address] [place] [address] Mark Gates MD ? regarding skin cleanser for procedure 01/02/2025 9:00 AM INSTRUMENT TECH Office Visit [facility] - [address] [place] [address] [address] [facility] [address] [place] [address] Mark Gates MD Critical limb ischemia of left lower extremity (CMS/HCC) (Primary Dx); PAD (peripheral artery disease); Stage 3b chronic kidney disease (CMS/HCC); Benign essential HTN; Dyslipidemia; Right carotid bruit 01/02/2025 7:11 AM INSTRUMENT TECH - 01/02/2025 11:59 PM INSTRUMENT TECH Hospital Encounter [facility] [address] [facility] [address] [place] [address] Mark Gates MD Discharge Disposition: Home or Self Care 01/02/2025 Prep for Surgery [facility] - [address] [place] [address] Flori Wakefield RN 01/02/2025 Telephone [facility] - [address] [place] [address] [place] [address] Mark Gates MD 01/02 AIF scheduled for 01/0701/01/2025 External Device Data STL ABSTRACTION Provider, Abstract 12/27/2024 Abstract [facility] - [address] [place] [address] Provider, Abstract 12/27/2024 Abstract [facility] - [address] [place] [address] [address] [facility] [address] [place] [address] Provider, Abstract 12/24/2024 External Device Data STL ABSTRACTION Provider, Abstract 12/24/2024 External Device Data STL ABSTRACTION Provider, Abstract 12/24/2024 External Device Data STL ABSTRACTION Provider, Abstract 12/23/2024 Telephone [facility] - [address] [place] [address] [place] [address] [place] Akbar, DO Vascular referral 12/23/2024 Abstract [facility] - [address] [place] [address] Provider, Abstract from Last 3 Months Social History Tobacco Use Types Packs/Day Years Used Date Smoking Tobacco: Never Smokeless Tobacco: Never Tobacco Cessation:Counseling Given: Not Answered Alcohol Use Standard Drinks/Week Comments Not Currently 0 (1 standard drink = 0.6 oz pur e alcohol) Feeling Safe Answer Date Recorded Are you in a relationship wi th someone who hurts you emotionally and/or physically? No 01/07/2025 Comments Unknown Sex and Gender Information Value Date Recorded Sex Assigned at Not on file Legal Sex Female 4:15 PM INSTRUMENT TECH Gender Identity Not on file Sexual Orientation Not on file Last Filed Vital Signs Vital Sign Reading Time Taken Comments Blood Pressure 116/58 01/07/2025 2:00 PM INSTRUMENT TECH Pulse 72 01/07/2025 1:30 PM INSTRUMENT TECH Temperature 36.2 C (97.2 F) 01/07/2025 8:19 AM INSTRUMENT TECH Respiratory Rate 16 01/07/2025 2:00 PM INSTRUMENT TECH Oxygen Saturation 97% 01/07/2025 1:30 PM INSTRUMENT TECH Inhaled Oxygen Concentration - - Weight 66.7 kg (147 lb) 01/02/2025 8:21 AM INSTRUMENT TECH Height 165.1 cm (5' 5 ) 01/02/2025 8:21 AM INSTRUMENT TECH Body Mass Index 24.46 01/02/2025 8:21 AM INSTRUMENT TECH Plan of Treatment Upcoming Encounters Date Type Department Care Team (Late st Contact Info) Description 03/05/2025 3:15 PM CDT Appointment [facility] [address] [facility] [address] [place] [address] [place] [address] [facility] [address] [place] [address] Health Maintenance Due Date Last Done Comments DIABETES MICROALBUMIN ANNUAL SCREEN 1973 LDL CHOLESTEROL ANNUAL 1973 Traditional Medicare (ACO) A nnual Wellness Visit 1974 FIT-DNA Q 3 years 2000 FIT/FOBT Q 1 year 2000 Flex Sig/CT Colonography Q 5 years 2000 RSV VACCINE (60+ or ) (1 - Risk 60-74 years 1-dose series) 2015 BREAST CANCER SCREENING 02/10/2024 02/10/20, 02/09/2023, 07/04/2018, Additional history exists COVID-19 Vaccine (2023-2 5 season) 2024 08/18/2022, 01/05/2022, 01/04/2022, Additional history exists DIABETES ANNUAL FOOT EXAM 12/20/2024 12/20/2023 DIABETES ANNUAL RETINAL EXAM 02/28/2025 02/29/2024 DIABETES HBA1C Q 6 MONTHS 07/16/2025 01/13/2025, COLORECTAL SCREENING 06/01/2031 06/01/2021 Colorectal Cancer Screening 06/01/2031 DTAP/TDAP/TD VACCINES (3 - T d or Tdap) 12/22/2033 12/22/2023, 04/30/2013, 04/30/2013 ZOSTER VACCINE Completed 02/12/2019, 12/13/2018 OSTEOPOROSIS SCREENING Completed 02/05/2021, 2020 PNEUMOCOCCAL VACCINE 50+ YEARS Completed 0 12/20/2023, 07/22/2020, 12/12/2018, Additional history exists INFLUENZA VACCINE Completed 11/27/2024, , 09/03/2020, Additional history exists Medical Devices Implanted Type Area [employer] Device Identifier Shelf Expiration Date Model / Serial / Lot Closure Perclose Proglide [id number] - [id number] Implanted:Qty : 1 on 01/07/2025 by Mark Gates MD at [facility] Closure Device Left: Groin ZHENG- VASC DEVICE [id number] 10/12/2026 [id number] / / [id number] Stent Synergy Xd 2.5x48mm Evrlms Elut [id number] - [id number] Implanted:Qty : 1 on 01/07/2025 by Mark Gates MD at [facility] Stent Left: Leg [employer] [id number] 03/05/2026 [id number] / / [id number] Stent Synergy Xd 3.0x48mm Evrlms Elut [id number] - [id number] Implanted:Qty : 1 on 01/07/2025 by Mark Gates MD at [facility] Stent Left: Leg [employer] [id number] 06/26/2026 [id number] / / [id number] Stent Synergy Xd 3.0x20mm Evrlms Elut [id number] - [id number] Implanted:Qty : 1 on 01/07/2025 by Mark Gates MD at [facility] Stent Left: Leg [employer] [id number] 02/27/2026 [id number] Procedures Procedure Name Priority Date/Time Associated Diagnosis Comments TELEMETRY REPORT 01/14/2025 1:46 PM INSTRUMENT TECH IVUS-NON CORONARY INTRAVASCULAR Routine 01/07/2025 11:26 AM INSTRUMENT TECH PAD (peripheral artery disease) Critical limb ischemia of left lower extremity (CMS/HCC) PERIPHERAL ARTERY INTERVENTION Routine 01/07/2025 11:26 AM INSTRUMENT TECH PAD (peripheral artery disease) Critical limb ischemia of left lower extremity (CMS/HCC) AORTA ILIAC FEMORAL ANGIOGRAPHY Routine 01/07/2025 11:26 AM INSTRUMENT TECH PAD (peripheral artery disease) Critical limb ischemia of left lower extremity (CMS/HCC) POC ACTIVATED CLOTTING TIME Routine 01/07/2025 11:23 AM INSTRUMENT TECH POC ACTIVATED CLOTTING TIME Routine 01/07/2025 11:00 AM INSTRUMENT TECH POC ACTIVATED CLOTTING TIME Routine 01/07/2025 9:55 AM INSTRUMENT TECH BASIC METABOLIC PANEL Routine 01/02/2025 1:31 PM INSTRUMENT TECH Critical limb ischemia of left lower extremity (CMS/HCC) PAD (peripheral artery disease) CBC WITH DIFFERENTIAL Routine 01/02/2025 1:31 PM INSTRUMENT TECH Critical limb ischemia of left lower extremity (CMS/HCC) PAD (peripheral artery disease) US ANKLE PRESSURE INDEX Routine 01/02/2025 7:53 AM INSTRUMENT TECH Decreased pedal pulses from Last 3 Months Results * TELEMETRY REPORT (01/14/2025 1:46 PM INSTRUMENT TECH) us Provider Scanning ECG ORDERABLES Final Result * AORTA ILIAC FEMORAL ANGIOGRAPHY, PERIPHERAL ARTERY INTERVENTION, IVUS-NON CORONARY INTRAVASCULAR (01/07/2025 11:26 AM INSTRUMENT TECH) 01/07/2025 8:40 AM INSTRUMENT TECH Narrative Mark Gates MD - 01/07/2025 12:26 PM INSTRUMENT TECH DATE OF PROCEDURE: 01/07/2025 PRESENTING HISTORY: Ms. Ramirez is a 69-year-old female with long-standing insulin-dependent diabetes, CKD, hypertension, dyslipidemia and CML. She was evaluated by Dr. Akbar for left knee replacement, at the same time was noted to have critical limb ischemia of the left lower extremity with ischemic rest pain and dependent rubor, and noninvasive arterial testing subsequently showed severe arterial insufficiency. She presents today for lower extremity angiography and endovascular intervention. SEDATION: Moderate conscious sedation was used for the procedure. Received IV fentanyl and Versed given by the slab puller RN under my direct supervision. PROCEDURES: Ultrasound-guided retrograde access of the right common femoral artery. Abdominal aortogram. Selective bilateral lower extremity angiography. ESTIMATE CLERK and stenting of the left posterior tibial artery. ESTIMATE CLERK of the left peroneal artery. Intravascular ultrasound of the left peroneal, posterior tibial, popliteal, and SFA. PROCEDURE IN DETAIL: The patient was brought into the vascular interventional suite and prepped and draped in the usual sterile fashion. Under ultrasound, the common femoral artery on the right was located and noted to be calcified. It was accessed under real-time ultrasound guidance using a micro access kit and a 6-Armenian sheath inserted. Retrograde angiography showed a patent common femoral, profunda femoris, and SFA. The popliteal artery was subtotally occluded behind the knee. There was two-vessel via the PT and the peroneal arteries. An Omni Flush catheter was advanced and positioned in the abdominal aorta. Abdominal aortogram showed a patent infrarenal aorta, patent bilateral common and external iliac arteries that were calcified. The Omni Flush catheter was advanced up and over the bifurcation and positioned in the left common femoral. Selective angiography showed a patent common femoral and profunda femoris. The SFA was diffusely diseased with moderate disease along the entire SFA and popliteal artery. There was severe infrapopliteal disease with an occluded anterior tibial artery, occluded peroneal artery, and occluded posterior tibial artery with some reconstitution noted in the mid distal AT and the distal PT, with the PT being the dominant runoff to the foot. A [place] Advantage wire was wired into the SFA and the 6-Armenian sheath switched out for a 6 x 55 cm Davy sheath that was positioned up and over the bifurcation and positioned in the proximal left SFA. The patient at this point in time was fully anticoagulated to maintain a therapeutic ACT. I was able to cross the peroneal occlusion using a Command ES wire and advanced an IVUS catheter that showed a reference diameter between 2 and 2.5 mm. We angioplastied the peroneal artery with a 2 mm balloon followed by a 2.5 mm balloon. We had flow down the peroneal, however not enough flow into the foot. I now decided to tackle the more complex posterior tibial occlusion. A Command ES wire was wired into the proximal posterior tibial segment with the support of a Quick-Cross catheter. I could not cross the occlusion antegrade. Under ultrasound, the terminal posterior tibial artery was located. It was noted to be very calcified in the front wall, was accessed under real-time ultrasound guidance using a micro access kit and a V-18 wire advanced retrograde and CXI catheter tracked over this. Retrograde angiography showed we were true lumen. Using a reverse CART technique, I was able to cross the occlusion retrograde with a Gladius Mongo wire with the wire externalized out of the sheath. We then advanced a 2 mm Astatula 14 balloon down to the terminal posterior tibial artery, reversed the wire, and angioplasty was performed for internal hemostasis of the distal access site. We then angioplastied the proximal to mid posterior tibial artery with a 2 followed by a 2.5 mm balloon. We had an extensive area of dissection noted in the severely calcified segment. Given that this was the dominant runoff to the foot, as no choice at this point in time, we decided to scaffold this. We stented the posterior tibial artery in the proximal to mid with overlapped 2.5 and 3 mm Synergy EVITA. Post-dilated this with a noncompliant balloon, post-IVUS showing well-expanded and apposed stent. IVUS of the popliteal and SFA showed diffuse moderate disease with no critical stenosis. Final angiography showed brisk flow down the posterior tibial artery into the foot with flow down the peroneal artery as well. The sheath was removed and the arteriotomy was closed with a Perclose closure device with good hemostasis. She tolerated the procedure well. There were no in-lab complications. PLAN: We will keep her on dual-antiplatelet therapy. She will need to be on DAPT for at least three months uninterrupted, ideally six, and then we can transition to aspirin monotherapy. She has a subtotally occluded popliteal artery on the right that will need to be addressed. AJT/lmr Mark Gates MD CUP CATH ORDERABLES Final Resu lt * POC ACTIVATED CLOTTING TIME (01/07/2025 11:23 AM INSTRUMENT TECH) Only the most recent of3 resultswithin the time period is included. [facility] ACTIVATED CLOTTING TIME POC 296 sec 01/07/2025 11:23 AM INSTRUMENT TECH [facility] Comment: Target Range(s): >400 sec. Cardiovascular Surgery >250 sec. when Cardiac Cath or other intervention is performed. <180 sec. to pull sheath Blood 01/07/2025 11:2 3 AM INSTRUMENT TECH 01/08/2025 6:41 AM INSTRUMENT TECH Mark Gates MD POINT OF CARE TESTING Final Re sult [facility] CLIA# [id number] [address] [place] [address] * (ABNORMAL) CBC WITH DIFFERENTIAL (01/02/2025 1:31 PM INSTRUMENT TECH) [facility] WBC 12.0(H) 3.8 - 10.8 Thousand/u L [facility] RBC 4.22 3.80 - 5.10 Million/uL [facility] HEMOGLOBIN 11.5(L) 11.7 - 15.5 g/dL [facility] HEMATOCRIT 35.3 35.0 - 45.0 % [facility] MCV 83.6 80.0 - 100.0 fL [facility] MCH 27.3 27.0 - 33.0 pg [facility] MCHC 32.6 32.0 - 36.0 g/dL [facility] Comment: For adults, a slight decrease in the calculated MCHC value (in the range of 30 to 32 g/dL) is most likely not clinically significant; however, it should be interpreted with caution in correlation with other red cell parameters and the patient's clinical condition. RDW 13.1 11.0 - 15.0 % [facility] PLATELETS 369 140 - 400 Thousand/u L [facility] MPV 9.8 7.5 - 12.5 fL [facility] NEUTROPHIL ABSOLUTE 5,076 1,500 - 7,800 cells/uL [facility] LYMPHOCYTE ABSOLUTE 5,052(H) 850 - 3,900 cells/uL [facility] MONOCYTE ABSOLUTE 648 200 - 950 cells/uL [facility] EOSINOPHIL ABSOLUTE 1,116(H) 15 - 500 cells/uL [facility] BASOPHILS ABSOLUTE 108 0 - 200 cells/uL [facility] NEUTROPHIL 42.3 % [facility] LYMPHOCYTES 42.1 % [facility] MONOCYTE 5.4 % [facility] EOSINOPHILS 9.3 % [facility] BASOPHILS 0.9 % [facility] Comment: FASTING:NO FASTING: NO Test Performed at: [facility] [address] [place] [address] Ken Gutierrez MD Blood 01/02/2025 1:31 PM INSTRUMENT TECH 01/02/2025 1:32 PM INSTRUMENT TECH us Mark Gates MD HEMATOLOGY ORDERABLES Final Re sult [facility] [phone] [facility] [address] [place] [address] * (ABNORMAL) BASIC METABOLIC PANEL (01/02/2025 1:31 PM INSTRUMENT TECH) GLUCOSE 111 65 - 139 mg/dL [facility] Comment: Non-fasting reference interval BUN 22 7 - 25 mg/dL [facility] CREATININE 1.50(H) 0.50 - 1.05 mg/dL [facility] GFR 37(L) > OR = 60 mL/min/1.7 3m2 [facility] BUN/CREAT RATIO 15 6 - 22 (calc) [facility] SODIUM 142 135 - 146 mmol/L [facility] POTASSIUM 4.1 3.5 - 5.3 mmol/L [facility] CHLORIDE 105 98 - 110 mmol/L [facility] CO2 26 20 - 32 mmol/L [facility] CALCIUM 9.8 8.6 - 10.4 mg/dL [facility] Comment: FASTING:NO FASTING: NO [facility] [address] [place] [address] Ken Gutierrez MD Blood 01/02/2025 1:31 PM INSTRUMENT TECH 01/02/2025 1:32 PM INSTRUMENT TECH us Mark Gates MD CHEMISTRY ORDERABLES Final Res ult Performing Organization Address City/State/[facility] Co de Phone Number [facility] [phone] [facility] [address] [place] [address] * US ANKLE PRESSURE INDEX (01/02/2025 7:53 AM INSTRUMENT TECH) Anatomical Region Laterality Modality Lower Extremity Ultrasound 01/02/2025 7:17 AM INSTRUMENT TECH Narrative 01/02/2025 8:30 AM INSTRUMENT TECH [facility] LUIS Arterial Physiologic Evaluation Patient: Mariposa Ramirez Study ID: [id number] Gender: F : 1955 Age: 69 Race: CAU Height 165.1cm Study Date: 01/02/2025 Weight: 66.7kg Access. #: [id number] *Referring Physician:* Mark Gates M.D. *Ordering Physician:* Mark Gates M.D. *Equity Sales Assistant:* LaronReyna Indications: Decreased pedal pulses. Study data: Study status: Routine. Procedure: A vascular evaluation was performed. Ankle and brachial pressures were indexed and Doppler waveforms obtained at the ankle. LUIS. Ankle-brachial index. Birthdate: Patient birthdate: 1955. Age: Patient is 69year(s) old. Sex: gender: female. Height: 165.1cm. 65in. Weight: 66.7kg. : 147lb. Body mass index: BMI: 24.5kg/m^2. Body surface area: BSA: 1.76m^2. Study date: Study date: 01/02/2025. Study time: 07:17 AM. Location: Vascular laboratory. Patient status: Outpatient. Impressions 1. Evidence of moderate arterial insufficiency at rest, involving the right lower extremity. 2. Evidence of severe arterial insufficiency at rest, involving the left lower extremity. Arterial evaluation findings: Right: 1. Right LUIS: 0.64. This is consistent with moderate arterial insufficiency at rest. 2. Continuous wave Doppler of the right leg vessels is abnormal. 3. Right first digit pressure is below normal limits. 4. Digit photoplethysmography (PPG) demonstrates abnormal waveforms on the right. Left: 1. Left LUIS: 0.39. This is consistent with severe arterial insufficiency at rest. 2. Continuous wave Doppler of the left leg vessels is abnormal. 3. Left first digit pressure is below normal limits. 4. Digit photoplethysmography (PPG) demonstrates abnormal waveforms on the left. Tables: Brachial pressures: +--------+ + + + ! !Right !Left !Max ! +--------+ + + + !Systolic!R(sys): 135mm Hg!L(sys): 134mm Hg!Max: 135mm Hg! +--------+ + + + Ankle brachial indices: +----+----+------+-----+-----+----+--------+----+---+-------+----+-----+-----+ !R PT!R DP!R Toe !R PT !R DP !R !Brachial!L PT!L !L Toe !L PT!L DP !L Toe! ! ! ! !index!index!Toe ! ! !DP ! !inde!index!index! ! ! ! ! ! !inde! ! ! ! !x ! ! ! ! ! ! ! ! !x ! ! ! ! ! ! ! ! +----+----+------+-----+-----+----+--------+----+---+-------+----+-----+-----+ !83 !86 !59mm !0.61 !0.64 !0.44!135mm Hg!39 !52 !25mm Hg!0.29!0.39 !0.19 ! ! ! !Hg ! ! ! ! ! ! ! ! ! ! ! +----+----+------+-----+-----+----+--------+----+---+-------+----+-----+-----+ *Pressures are expressed in mm Hg Prepared and Electronically Authenticated Abraham Rodriguez MD [id number] Procedure Note Javi Rodriguez MD - 01/02/2025 [facility] LUIS Arterial Physiologic Evaluation Patient: Mariposa Ramirez Study ID: 1 Gender: F :1955 Age: 69 Race: [facility] Height 165.1cm Study Date:01/02/2025 Weight: 66.7kg Access. #:[id number] *Referring Physician:* Mark Gates M.D. *Ordering Physician:* Mark Gates M.D. *Equity Sales Assistant:* Reyna Larry Indications: Decreased pedal pulses. Study data: Study status: Routine. Procedure: A vascular evaluationwas performed. Ankle and brachial pressures were indexed and Dopplerwaveforms obtained at the ankle. LUIS. Ankle-brachial index. Birthdate:Patient birthdate: 1955. Age: Patient is 69year(s) old. Sex: Birthgender: female. Height: 165.1cm. 65in. Weight: 66.7kg. : 147lb. Body massindex: BMI: 24.5kg/m^2. Body surface area: BSA: 1.76m^2. Study date:Study date: 01/02/2025. Study time: 07:17 AM. Location: Vascular laboratory. Patient status: Outpatient. Impressions 1. Evidence of moderate arterial insufficiency at rest, involving theright lower extremity. 2. Evidence of severe arterial insufficiency at rest, involving the leftlower extremity. Arterial evaluation findings: Right: 1. Right LUIS: 0.64. This is consistent with moderate arterialinsufficiency at rest. 2. Continuous wave Doppler of the right leg vessels is abnormal. 3. Right first digit pressure is below normal limits. 4. Digit photoplethysmography (PPG) demonstrates abnormal waveforms onthe right. Left: 1. Left LUIS: 0.39. This is consistent with severe arterial insufficiencyat rest. 2. Continuous wave Doppler of the left leg vessels is abnormal. 3. Left first digit pressure is below normal limits. 4. Digit photoplethysmography (PPG) demonstrates abnormal waveforms onthe left. Tables: Brachial pressures: +--------+ + + + ! !Right !Left !Max ! +--------+ + + + !Systolic!R(sys): 135mm Hg!L(sys): 134mm Hg!Max: 135mm Hg! +--------+ + + + Ankle brachial indices: +----+----+------+-----+-----+----+--------+----+---+-------+----+-----+-----+ !R PT!R DP!R Toe !R PT !R DP !R !Brachial!L PT!L !L Toe !L PT!L DP !LToe! ! ! ! !index!index!Toe ! ! !DP !!inde!index!index! ! ! ! ! ! !inde! ! ! ! !x ! !! ! ! ! ! ! !x ! ! ! ! ! ! !! +----+----+------+-----+-----+----+--------+----+---+-------+----+-----+-----+ !83 !86 !59mm !0.61 !0.64 !0.44!135mm Hg!39 !52 !25mm Hg!0.29!0.39!0.19 ! ! ! !Hg ! ! ! ! ! ! ! ! ! !! +----+----+------+-----+-----+----+--------+----+---+-------+----+-----+-----+ *Pressures are expressed in mm Hg Prepared and Electronically Authenticated Abraham Rodriguez MD [id number]:30:39 Mark Gates MD ORDERABLES Final Result from Last 3 Months Insurance MEDICARE PART A AND B [employer] MEDICARE SUPP AESSI RX EXPRESS S[employer] Medicare Part D Care Teams Doctor Of Podiatric Medicine Relationship Specialty Start Date End Date Tatum Rice DO [address] [place] [address] PCP - General Internal Medicine 01/02/25
--- OUTSIDE RECORDS SUMMARY | 2025-02-28 14:03 | XMS_ITS ---
Author Organization [facility] Address [address] [place] [address] Care Team Providers Care Plant Etiologist Name Role Phone Tatum Rice DO Primary Care Provider Unavaila Austyn Lopez Unavailable [phone] REASON FOR VISIT Missed Appt Encounters Encounter Location Date Provider Diagnosis [facility] [address] [place] [address] 01/21/2025 Austyn Martinez PLAN OF TREATMENT No Information
--- OUTSIDE RECORDS SUMMARY | 2025-02-28 14:03 | XMS_ITS | Encounter Summary ---
Author Organization [facility] Address [address] [facility] [place] [address] Care Team Providers Care Retort Engineer Name Role Phone Tatum Rice DO Primary Care Provider Jazmín San MD Unavailable Tatum Rice DO Unavailable Amie Hickman MD Primary Care Provider Gautam Carlson MD Unavailable [phone] Reason for Visit * Reason Onset Date Comments MEDICATION REFILL 11/02/2021 MEDICATION REFILL 11/30/2021 Encounter Details Date Type Department Care Team (Late st Contact Info) Description 11/02/2021 Refill [facility] [address] [facility] [facility] 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 No / Unsure 10/21/2021 2:50 PM ENVIRONMENTAL RESOURCE SPECIALIST documented as of this encounter Plan of Treatment Upcoming Encounters Date Type Department Care Team (Late st Contact Info) Description 06/12/2025 1:00 PM CDT Office Visit [facility] - Neurology [address] [facility], [place] [address] Rosy Cabrera, CONSERVATION ENFORCEMENT OFFICER-RN REFERRAL [address] [place] [address] documented as of this encounter [...] as of this encounter Visit Diagnoses Diagnosis Essential (primary) hypertension Unspecified essential hypertension documented in this encounter Care Teams Retort Engineer Relationship Specialty Start Date End Date Tatum Rice DO [address] [place] [address] 2L [place] [address] PCP - General 01/06/21 12/12/23 Amie Hickman MD [address] [place] [address] DIV OF INT MED [address] [place] [phone] PCP - General Internal Medicine 08/27/24 Jazmín San MD [address] [facility] [place] [place] [address] Resident - PCP Student Resident 06/18/21 08/26/24 Tatum Rice DO [address] OF [facility] [place] [address] Physician Internal Medicine 12/28/23 Gautam Carlson MD [address] [facility] [address] [place] [address] Hematology and Oncology 11/27/24 documented as of this encounter
--- OUTSIDE RECORDS SUMMARY | 2025-02-28 14:03 | XMS_ITS | Encounter Summary ---
Author Organization [facility] Address [address] [facility] [place] [address] Care Team Providers Care Air Pollution Inspector Name Role Phone Tatum Rice DO Primary Care Provider Jazmín San MD Unavailable Tatum Rice DO Unavailable [phone] Amie Hickman MD Primary Care Provider [phone] Gautam Carlson MD Unavailable [phone] Reason for Visit * Reason Onset Date Comments Appointment 04/25/2022 Encounter Details Date Type Department Care Team (Late st Contact Info) Description 04/25/2022 Telephone [facility] [address] [place] [address] Tatum Rice DO [address] OF [facility] [address] Appointment Social History Tobacco Use Types Packs/Day Years Used Date Smoking Tobacco: Never Smokeless Tobacco: Never Alcohol Use Standard Drinks/Week Comments No 0 (1 standard drink = 0.6 oz pur e alcohol) PHQ-2 Answer Date Recorded PHQ2 TOTAL SCORE 0 04/28/2022 Comments No Sex and Gender Information Value Date Recorded Sex Assigned at Not on file Legal Sex Female 2:03 PM CRUISE STAFF MEMBER Gender Identity Not on file Sexual Orientation Not on file documented as of this encounter Miscellaneous Notes * Telephone Encounter - Beverly Villanueva Franchesca - 04/25/2022 3:15 PM CDT Current Provider name: MIAH Reason for call: Patient Mairposa Ramirez called into the scheduling center requesting to change her 04/28/2022 in person appt with Clarke Noel to a Virtual visit. Would like to know if TEL appt would be ok stated she has someone to bring her but doesn't want them to sit outside for 40mins waiting on her appt to end. Please advise if TEL call is ok. Patient Call Back number: [phone] documented in this encounter Plan of Treatment Upcoming Encounters Date Type Department Care Team (Late st Contact Info) Description 06/12/2025 1:00 PM CDT Office Visit [facility] - Neurology [address] [place] [phone] Rosy Cabrera, ADA-MAINFRAME ANALYST [address] [place] [address] documented as of this encounter Goals Goal [...] on filedocumented in this encounter Care Teams Air Pollution Inspector Relationship Specialty Start Date End Date Tatum Rice DO [address] [facility] 2L DIV OF [facility] [place] [phone] PCP - General 01/06/21 12/12/23 Amie Hickman MD [address] [facility] DIV OF [facility] MED [address] [place] [address] PCP - General Internal Medicine 08/27/24 Jazmín San MD [address] [place] [phone] Resident - PCP Student Resident 06/18/21 08/26/24 Tatum Rice DO [address] [place] [address] Physician Internal Medicine 12/28/23 Gautam Carlson MD [address] [facility] [address] [place] [address] Hematology and Oncology 11/27/24 documented as of this encounter
--- OUTSIDE RECORDS SUMMARY | 2025-02-28 14:03 | XMS_ITS ---
Author Organization [facility] Address [address] [place] [address] Care Team Providers Care Traffic Reporter Name Role Phone Tatum Rice DO Primary Care Provider Unavaila Austyn Lopez Unavailable [phone] [place] Akbar Unavailable [phone] REASON FOR VISIT Pre-op Progress Check-Left TKA 03/11/2025 Encounters Encounter Location Date Provider Diagnosis [facility] [address] [place] [address] 01/13/2025 Berlin Akbar PLAN OF TREATMENT No Information
--- OUTSIDE RECORDS SUMMARY | 2025-02-28 14:03 | XMS_ITS | Encounter Summary ---
Author Organization [facility] [place] [facility] Address [address] [place] [address] Care Team Providers Care Financial Reporting Manager Name Role Phone aTtum Rice DO Primary Care Provider Encounter Details Date Type Department Care Team (Late Contact Info) Description 12/27/2024 Abstract 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 [address] [place] [address] [place] [address] [facility] [address] [place] [address] documented as of this encounter Visit Diagnoses Not on filedocumented in this encounter Care Teams Financial Reporting Manager Relationship Specialty Start Date End Date Tatum Rice DO [address] DIV OF [place] [address] PCP - General Internal Medicine 2/20/25 documented as of this encounter
--- OUTSIDE RECORDS SUMMARY | 2025-02-28 14:03 | XMS_ITS | Encounter Summary ---
Author Organization [facility] Address [address] [facility] [place] [address] Care Team Providers Care Supervisor Mail Carriers Name Role Phone Haydee Shepherd MD Primary Care Provider [phone] Nakul Stern Unavailable Unavailable Haydee Shepherd MD Primary Care Provider [phone] Tatum Rice DO Primary Care Provider [phone] Rasheed Rebolledo DO Unavailable Unavailable Rasheed Rebolledo DO Primary Care Provider Unavail able Tatum Rice DO Primary Care Provider [phone] Jazmín San MD Unavailable Tatum Rice DO Unavailable [phone] Amie Hickman MD Primary Care Provider [phone] Gautam Carlson MD Unavailable [phone] Reason for Visit * Reason Onset Date Comments MEDICATION REFILL 04/27/2018 Encounter Details Date Type Department Care Team (Late st Contact Info) Description 04/27/2018 Refill [facility] General Internal Medicine [address] [place] [address] Haydee Shepherd MD [address] [place] [address] MEDICATION REFILL Social History Tobacco Use Types Packs/Day Years Used Date Smoking Tobacco: Never Smokeless Tobacco: Never Alcohol Use Standard Drinks/Week Comments No 0 (1 standard drink = 0.6 oz pur e alcohol) Comments No Sex and Gender Information Value Date Recorded Sex Assigned at Not on file Legal Sex Female 2:03 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 Discussed plan for tapering off of this medication at last office visit. * Telephone Encounter - Uzair Kraft - 04/27/2018 11:00 AM CDT Refill request sent to provider per protocol jhon DE LEÓN 03/22/17 NOV06/20/18 documented in this encounter Plan of Treatment Upcoming Encounters Date Type Department Care Team (Late st Contact Info) Description 06/12/2025 1:00 PM CDT Office Visit [facility] - Neurology [address] [place] [address] Rosy Cabrera APRN-BEHAVIORAL HEALTH RN [address] [place] [address] documented as of this encounter Visit Diagnoses Not on filedocumented in this encounter Care Teams Supervisor Mail Carriers Relationship Specialty Start Date End Date Haydee Shepherd MD PCP - General 03/13/18 12/11/18 Haydee Shepherd MD PCP - General Internal Medicine 12/12/18 12/16/18 Tatum Rice DO [address] [place] [address] PCP - General 12/17/18 05/12/19 Rasheed Rebolledo DO [address] [place] [address] PCP - General 07/04/19 01/05/21 Tatum Rice DO [address] [facility] [address] DIV OF [place] [address] PCP - General 01/06/21 12/12/23 Amie Hickman MD [address] DIV OF [address] [phone] PCP - General Internal Medicine 08/27/24 [facility] [place] [facility] 07/11/18 12/11/18 Rasheed Rebolledo DO [address] [place] [address] Resident - PCP Student Resident 07/04/19 06/17/21 Jazmín San MD [address] [facility] [place] [phone] Resident - PCP Student Resident 06/18/21 08/26/24 Tatum Rice DO [address] [facility] 2L DIV OF [place] [address] Physician Internal Medicine 12/28/23 Gautam Carlson MD [address] [facility] [address] [place] [address] Hematology and Oncology 11/27/24 documented as of this encounter
--- OUTSIDE RECORDS SUMMARY | 2025-02-28 14:03 | XMS_ITS | Encounter Summary ---
Author Organization [facility] Address [address] [place] [address] Care Team Providers Care Molder Wax Ball Name Role Phone Tatum Rice DO Primary Care Provider [phone] Jazmín San MD Unavailable Tatum Rice DO Unavailable [phone] Amie Hickman MD Primary Care Provider [phone] Gautam Carlson MD Unavailable Encounter Details Date Type Department Care Team (Late st Contact Info) Description 11/14/2021 Telephone [facility] Internal Medicine [address] [place] [address], [place] [phone] Tatum Rice DO [address] [place] [address] OF [facility] [place] [address] Social History Tobacco Use Types Packs/Day Years Used Date Smoking Tobacco: Never Smokeless Tobacco: Never Alcohol Use Standard Drinks/Week Comments No 0 (1 standard drink = 0.6 oz pur e alcohol) Comments No Sex and Gender Information Value Date Recorded Sex Assigned at Not on file Legal Sex Female 2:03 PM HAND DRY CLEANER Gender Identity Not on file Sexual Orientation Not on file COVID-19 Exposure Response Date Recorded In the last month, have you been in contact with someone who was confirmed or suspected to have Coronavirus / COVID-19? No / Unsure 10/21/2021 2:50 PM HAND DRY CLEANER documented as of this encounter Miscellaneous Notes * Telephone Encounter - Tatum Rice DO - 11/14/2021 2:20 PM CST Received call from patient via drop hammer set up operator. Test results back positive for COVID today. No SOB or fevers. Feels like head cold. Symptoms started ~ 5 days ago. DRY CLEANER documented in this encounter Plan of Treatment Upcoming Encounters Date Type Department Care Team (Late st Contact Info) Description 06/12/2025 1:00 PM CDT Office Visit [facility] - Neurology [address] [place] [address], [facility] [place] [address] Rosy Cabrera, ADA-PROGRAMMING INTERN [address] [place] [address] documented as of this encounter [...] on filedocumented in this encounter Care Teams Molder Wax Ball Relationship Specialty Start Date End Date Tatum Rice DO [address] [place] [address] 2L DIV [place] [address] PCP - General 01/06/21 12/12/23 Amie Hickman MD [address] [place] [address] DIV OF INT MED [address] [place] [phone] PCP - General Internal Medicine 08/27/24 Jazmín San MD [address] [facility] [place] [phone] Resident - PCP Student Resident 06/18/21 08/26/24 Tatum Rice DO [address] OF [facility] [place] [address] Physician Internal Medicine 12/28/23 Gautam Carlson MD [address] [facility] [address] [place] [address] Hematology and Oncology 11/27/24 documented as of this encounter
--- OUTSIDE RECORDS SUMMARY | 2025-02-28 14:04 | XMS_ITS | Encounter Summary ---
Author Organization [facility] Address [address] [facility] [place] [address] Care Team Providers Care Pattern Illustrator Name Role Phone Tatum Rice DO Primary Care Provider [phone] Rasheed Rebolledo DO Unavailable Unavailable Rasheed Rebolledo DO Primary Care Provider Unavail able Tatum Rice DO Primary Care Provider Jazmín San MD Unavailable Tatum Rice DO Unavailable Amie Hickman MD Primary Care Provider Gautam Carlson MD Unavailable Reason for Visit * Reason Onset Date Comments Med Question 01/04/2019 Encounter Details Date Type Department Care Team (Late st Contact Info) Description 01/04/2019 Telephone [facility] Internal Medicine [address] 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 The pt has also tried Naproxen with little relief The pt had tried Vicodin in the past which seemed to work. The pt was told by her pharmacy that if her PCP ordered Vicodin it would need to be e-scribed/faxed The pt is experiencing back, Rt shoulder blade, rt arm and hand - pain, numbness and tingling The pt is going to PT, which is helping, but the pt still has considerable pain Pt cannot take Tramadol because it interferes with her chemotherapy The pt declined an acute care appt for today Pharmacy verified with the pt EATION SUPERINTENDENT documented in this encounter Plan of Treatment Upcoming Encounters Date Type Department Care Team (Late st Contact Info) Description 06/12/2025 1:00 PM CDT Office Visit [facility] - Neurology [address] [place] [address], [facility] [place] [phone] Rosy Cabrera APRN-NIKKIE [address] [place] [address] documented as of this encounter Visit Diagnoses Not on filedocumented in this encounter Care Teams Pattern Illustrator Relationship Specialty Start Date End Date Tatum Rice DO [address] [place] [address] PCP - General 12/17/18 05/12/19 Rasheed Rebolledo DO [address] [place] [address] PCP - General 07/04/19 01/05/21 Tatum Rice DO [address] [place] [address] DIV OF [facility] [place] [address] PCP - General 01/06/21 12/12/23 Amie Hickman MD [address] [facility] DIV OF [address] [phone] PCP - General Internal Medicine 08/27/24 Rasheed Rebolledo DO [address] [place] [address] Resident - PCP Student Resident 07/04/19 06/17/21 Jazmín San MD [address] [facility] [place] [address] Resident - PCP Student Resident 06/18/21 08/26/24 Tatum Rice DO [address] DIV OF [facility] [place] [address] Physician Internal Medicine 12/28/23 Gautam Carlson MD [address] [facility] [address] [place] [address] Hematology and Oncology 11/27/24 documented as of this encounter
--- OUTSIDE RECORDS SUMMARY | 2025-02-28 14:04 | XMS_ITS | Encounter Summary ---
Author Organization [facility] Address [address] [facility] [place] [address] Care Team Providers Care Flute Teacher Name Role Phone Tatum Rice DO Primary Care Provider [phone] Rasheed Rebolledo DO Unavailable Unavailable Rasheed Rebolledo DO Primary Care Provider Unavail able Tatum Rice DO Primary Care Provider Jazmín San MD Unavailable Tatum Rice DO Unavailable [phone] Amie Hickman MD Primary Care Provider [phone] Gautam Carlson MD Unavailable [phone] Reason for Visit * Reason Onset Date Comments MEDICATION REFILL 02/12/2019 Encounter Details Date Type Department Care Team (Late st Contact Info) Description 02/12/2019 Refill [facility] General Internal Medicine [address] [address] Nyasia Hogan APRN-NIKKIE [address] [place], [place] [phone] MEDICATION REFILL Social History Tobacco Use Types Packs/Day Years Used Date Smoking Tobacco: Never Smokeless Tobacco: Never Alcohol Use Standard Drinks/Week Comments No 0 (1 standard drink = 0.6 oz pur e alcohol) Comments No Sex and Gender Information Value Date Recorded Sex Assigned at Not on file Legal 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 Female 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 Gender Identity Not on file Sexual Orientation Not on file documented as of this encounter Plan of Treatment Upcoming Encounters Date Type Department Care Team (Late st Contact Info) Description 06/12/2025 1:00 PM CDT Office Visit [facility] - Neurology [address] [facility], [place] [address] Rosy Cabrera, PUMP ASSEMBLER-SANITATION ASSOCIATE [address] [place] [phone] documented as of this encounter Visit Diagnoses Not on filedocumented in this encounter Care Teams Flute Teacher Relationship Specialty Start Date End Date Tatum Rice DO [address] [place] [address] PCP - General 12/17/18 05/12/19 Rasheed Rebolledo DO [address] [place] [address] PCP - General 07/04/19 01/05/21 Tatum Rice DO [address] DIV [place] [phone] PCP - General 01/06/21 12/12/23 Amie Hickman MD [address] [facility] DIV OF INT MED [address] [place] [phone] PCP - General Internal Medicine 08/27/24 Rasheed Rebolledo DO [address] [place] [address] Resident - PCP Student Resident 07/04/19 06/17/21 Jazmín San MD [address] [facility] [place] [place] [address] Resident - PCP Student Resident 06/18/21 08/26/24 Tatum Rice DO [address] [facility] [place] [address] Physician Internal Medicine 12/28/23 Gautam Carlson MD [address] [facility] [address] [place] [address] Hematology and Oncology 11/27/24 documented as of this encounter
--- OUTSIDE RECORDS SUMMARY | 2025-02-28 14:04 | XMS_ITS | Patient Health Record ---
Author Organization [facility], Address [address] [place] [address] Care Team Providers Care Television Antenna Installer Name Role Phone Tatum Rice DO Primary Care Provider Austyn Gill Unavailable [phone] [place] Akbar Unavailable [phone] ALLERGIES Allergen (clinical drug ingredient) Drug/Non Drug Allergy documented on EMR Reaction Allergy Type Onset Date Status codeine Codeine Unknown Drug Allergy Active REASON FOR REFERRAL Reason Please evaluate decr eased pedal pulse-left Diagnosis 1 Primary osteoarthrit is of left knee (M17.12) Diagnosis 2 Decreased pedal puls es (R09.89) Referral Organization [facility] [place] Referring Provider First Name Berlin Referring Provider Last Name Raffy Referring Provider Speciality Orthopedic Surgery Referred Provider Specialty Vascular Breanne andres Referral Priority Routine MEDICATIONS Medication SIG (Take, Route, Frequency, Duration) Notes Start Date End Date Status Neurontin Active Aspirin Active Flonase Active Maalox Active Cymbalta Active Acetaminophen Active Triamcinolone Acetonide Active Cyclobenzaprine HCl Active Diclofenac topical Active Biotin Active Regina Active Atorvastatin Calcium Active Glucosamine Complex Active Calcium Active glipiZIDE Active Tasigna Active B12 Active Montelukast Sodium A ctive KlonoPIN Active Levothyroxine Sodium Active Cetirizine HCl Activ e levETIRAcetam Active Carvedilol Active PROBLEMS Problem Type ICD Code Onset Dates Problem Status W/U Status Risk SNOMED Code Notes Problem Primary osteoarthritis of left knee (M17.12) Active confirmed 947614673686053 Problem 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) Active confirmed 8611341234523773 Problem Decreased pedal pulses (R09.89) Active confirmed [id number] VITAL SIGNS Height 65 in 12/16/2024 Weight 147 lbs 12/16/2024 BMI 24.46 kg/m2 12/16/2024 Encounters Encounter Location Date Provider Diagnosis [facility] [place] [address] [place] [address], [place] [address] 12/19/2024 [facility] [place] [address], [place] [address] 12/23/2024 [facility] [place] [address], [place] [address] 12/16/2024 Austyn Martinez Primary osteoarthrit is of left knee M17.12 ; Right rotator cuff tendonitis M75.81 ; Arthritis of right acromioclavicular joint M19.011 ; Knee pain, left M25.562 and Pain in right shoulder M25.511 [facility] [place] [address], [place] [address] 12/19/2024 [place] Akbar Primary osteoarthrit is of left knee M17.12 [facility] [place] [address], [place] [address] 01/13/2025 [facility] [place] [address], [place] [address] 02/12/2025 Austyn Martinez [facility] [place] [address], [place] [address] 12/30/2024 [facility] [place] [address], [place] [address] 12/30/2024 [facility], [address] [place] [address] [place] [address] 01/21/2025 Austyn Martinez ASSESSMENTS Encounter Date Diagnosis Assessment Notes Treatment Notes Treatment Clinical Notes 12/16/2024 Primary osteoarthrit is of left knee (ICD-10 - M17.12) Mariposa has severe lateral compartment predominant arthritis of her left knee. She has not had much conservative care recently been has in the past and states that they shots do not last for long. She is looking for a more definitive fix. She is here today to discuss knee replacement. I advised her that my partners doing the knee replacements in our practice. Therefore I got her an appointment with Dr. Akbar at her convenience. 12/16/2024 Right rotator cuff tendonitis (ICD-10 - M75.81) She also has evidence of some rotator cuff tendonitis and AC joint arthritis. I think her pain is more related to her rotator cuff issue although she does not seem to have a full-thickness tear. I recommended a course of home exercises as well as an injection today given that she can not use anti-inflammatories. She was amenable to the injection. Written consent was obtained for right shoulder subacromial joint injection today. I will see her back in 2 months to check the progress of the shoulder. If her symptoms persist we may have to address the AC joint with an injection at some point. 12/19/2024 Primary osteoarthrit is of left knee (ICD-10 - M17.12) Mariposa is a 69-year-old female with severe left knee osteoarthritis resulting in progressively more pain and severe limitations in patient's activities and mobility. We reviewed the diagnosis and treatment options. These include conservative measures such as NSAIDs, PT and activity modification, injections as well as surgical intervention in the form of a knee replacement. We reviewed indications and rationale for each option. We discussed the natural history as well as the typical hospital course and rehab. Outcomes were also addressed along with activity restrictions. All their questions we answered in detail. Patient appears to have sufficient symptoms to warrant surgical intervention as evidenced by progressive worsening with unsuccessful non-operative treatment as outlined in the HPI. Patient is an appropriate candidate for left total knee arthroplasty with [employer] protocol. We had a lengthy discussion regarding the risks and benefits of total knee arthroplasty surgery. Benefits are pain relief and improved mobility. Risks include, but not limited to stiffness, infection, blood clots, fracture, need for further surgery and or revision, vascular injury, nerve injury, tendon injury, ligament injury, limb length discrepancy, dislocation, implant wear/loosening/failu re, heterotopic ossification, instability, wound complications, incomplete pain relief, anaesthesia complications, and medical complications, including . In addition to the standard surgical risks, we discussed patient's personal risk factors that may contribute to higher chance of complications or suboptimal outcomes. . We discussed the chance of numbness around the incision and that sometimes in addition to numbness, patients can develop persistent and burning pain around the incision. We discussed the importance of timely and adequate access to PT and or efficient home exercises to maximize the motion postoperatively. Patient voiced understanding and agreement with the discussion and asked pertinent questions. All questions answered to patient's satisfaction. - AAOS educational materials on knee osteoarthritis and total knee replacement provided Recommend 1,200 mg of calcium and 800 International unit Vitamin D each day Education on Fall prevention provided. Fall prevention becomes especially important for patients over age 70. Physical Therapy for 6-8 weeks, 2-3 times a week for 6-8 weeks I counseled patient on the risks of smoking and benefits of stopping smoking, especially when care requires performing surgery. All questions about the process and the expected recovery were answered to the patient's satisfaction. Patient demonstrated understanding and agreement with the plan. This note was completed using [employer] software for voice and speech recognition. Grammatical errors, random word insertions, pronoun errors, proper names, homophones, and incomplete sentences are occasional consequences of this technology due to software limitations. If you have any questions or concerns about the content of this note or information contained within the body of this dictation, they should be addressed to me or my staff for clarification. Please feel to contact me or our office if needed. She will need a vascular consult due to significant atherosclerosis and calcification noted in the popliteal artery. Risk of injury to the popliteal artery was discussed today in clinic at the time of total knee arthroplasty. She will also need to see her oncologist for recommendations with regards to stopping medications prior to surgery. She does need some workup prior to proceeding with a knee replacement. I will see her back in 1 month to get a progress report on how things are going. 12/16/2024 Arthritis of right acromioclavicular joint (ICD-10 - M19.011) 12/16/2024 Knee pain, left (ICD-10 - M25.562) 12/16/2024 Pain in right should er (ICD-10 - M25.511) 12/19/2024 Other X-rays of the left knee were obtained and independently interpreted by me today. They demonstrate severe left knee osteoarthritis worse in the lateral and patellofemoral joints. Slight valgus noted on the PA flexed view. PLAN OF TREATMENT Pending Test Test Name Order Date X ray : Knee complete L, AP bilat, Mcdonald bilat, Lat and [place] of affected 12/16/2024 X ray : Shoulder 4 views L, AP, Grashey, Outlet, Axillary 12/16/2024 Insurance Providers Payer Name Payer Address Payer Phone Subscriber Number Group Number Insured Name Patient Relationship to Insured Coverage Start Date Coverage End Date Medicare [place] [address] [address] [place] [address] [id number] Mariposa Ramirez Self - patient is the insured [employer] [facility] [address] [address] [facility] [place] [address] [id number] PLAN G Mariposa Ramirez Self - patient is the insured MEDICAL (GENERAL) HISTORY Medical History History ICD Code anxiety arthritis cancer depression diabetes GERD hiatal hernia hyperlipidemia kidney Dx seasonal allergies seizures sleep apnea thyroid Dx Surgical History Surgery Date(Month/Year) left knee x 3 left soulder ilateral carpal tunnel releases Hospitalization History Reason Date(Month/Year) has been hospitalized.
--- OUTSIDE RECORDS SUMMARY | 2025-02-28 14:04 | XMS_ITS | Encounter Summary ---
Author Organization [facility] Address [address] [facility] [place] [address] Care Team Providers Care Dispensing Audiologist Name Role Phone Tatum Rice Charline DO Unavailable [phone] Amie Hickman MD Primary Care Provider [phone] Gautam Carlson MD Unavailable [phone] Reason for Visit * Reason Onset Date Comments Concerns 11/11/2024 Encounter Details Date Type Department Care Team (Late st Contact Info) Description 11/11/2024 Telephone [facility] - Centralized Scheduling [address] [place] [address] Rosy Cabrera APRN-ELECTRICIAN ASSISTANT [address] [place] [address] Concerns Social History Tobacco Use Types Packs/Day Years Used Date Smoking Tobacco: Never Smokeless Tobacco: Never Alcohol Use Standard Drinks/Week Comments No 0 (1 standard drink = 0.6 oz pur e alcohol) PHQ-2 Answer Date Recorded Patient Health Questionnaire-2 Score 2 04/10/2024 Comments No Sex and Gender Information Value Date Recorded Sex Assigned at Not on file Legal Sex Female 2:03 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 She does want a phone call to clarify when she is able to drive again. She was told she shouldn't drive for at least 6 months. DE METER TESTER documented in this encounter Plan of Treatment Upcoming Encounters Date Type Department Care Team (Late st Contact Info) Description 06/12/2025 1:00 PM CDT Office Visit [facility] - Neurology [address] [place] [address], [place] [address] Rosy Cabrera APRN-ELECTRICIAN ASSISTANT [address] [place] [address] documented as of this encounter [...] on filedocumented in this encounter Care Teams Dispensing Audiologist Relationship Specialty Start Date End Date Amie Hickman MD [address] [place] [address] DIV OF INT MED [address] [place] [phone] PCP - General Internal Medicine 08/27/24 Tatum Rice DO [address] [place] [address] [address] [place] [address] Physician Internal Medicine 12/28/23 Gautam Carlson MD [address] [facility] [address] [place] [address] Hematology and Oncology 11/27/24 documented as of this encounter
--- OUTSIDE RECORDS SUMMARY | 2025-02-28 14:04 | XMS_ITS | Encounter Summary ---
Author Organization [facility] Address [address] [place] [address] Care Team Providers Care Bladder Blower Name Role Phone Tatum Rice Primary Care Provider Encounter Details Date Type Department Care Team (Late st Contact Info) Description 02/19/2025 Results Follow-Up [facility] [address] [place] [address] Graham Macdonald RN Social History Tobacco Use Types Packs/Day Years Used Date Smoking Tobacco: Never Smokeless Tobacco: Never Alcohol Use Standard Drinks/Week Comments Not Currently 0 (1 standard drink = 0.6 oz pur e alcohol) [facility] Utilities Answer Date Recorded In the past 12 months has [employer] electric, gas, oil, or water company threatened [...] often do you attend chur ch or gnosticist services? More than 4 times per year 01/22/2025 Do you belong to any clubs o r organizations such as episcopalian groups, unions, fraternal or athletic groups, or [...] place to sleep or slept in a [place] facility (including now)? No 06/20/2023 PHQ-9 Answer Date [...] any time in the past 12 [address] [place], were you homeless or living in a [place] facility (including now)? No 01/22/2025 Personal Safety Answer [...] on file Legal Sex Female 7:59 PM VICE PRESIDENT BUSINESS DEVELOPMENT Gender Identity Not on file Sexual Orientation Not on file documented as of this encounter Plan of Treatment Not on file documented as of this encounter Visit Diagnoses Not on filedocumented in this encounter Care Teams Bladder Blower Relationship Specialty Start Date End Date Tatum Rice DO PCP - General 05/30/22 documented as of this encounter
--- OUTSIDE RECORDS SUMMARY | 2025-02-28 14:04 | XMS_ITS | Encounter Summary ---
Author Organization [facility] Address [address] [facility] [place] [address] Care Team Providers Care Apparel Pattern Maker Name Role Phone Tatum Rice DO Primary Care Provider [phone] Rasheed Rebolledo DO Unavailable Unavailable Rasheed Rebolledo DO Primary Care Provider Unavail able Tatum Rice DO Primary Care Provider Jazmín San MD Unavailable Tatum Rice DO Unavailable Amie Hickman MD Primary Care Provider Gautam Carlson MD Unavailable Reason for Visit * Reason Onset Date Comments MEDICATION REFILL 03/19/2019 Encounter Details Date Type Department Care Team (Late st Contact Info) Description 03/19/2019 Refill [facility] General Internal Medicine [address] [facility] [address] [place] [address] Tatum Rice DO [address] [facility] [place] [phone] MEDICATION REFILL Social History Tobacco Use Types Packs/Day Years Used Date Smoking Tobacco: Never Smokeless Tobacco: Never Alcohol Use Standard Drinks/Week Comments No 0 (1 standard drink = 0.6 oz pur e alcohol) Comments No Sex and Gender Information Value Date Recorded Sex Assigned at Not on file Legal Sex Female 2:03 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 PROTECTION REPRESENTATIVE Gender Identity Not on file Sexual Orientation Not on file documented as of this encounter Miscellaneous Notes * Telephone Encounter - Ebonie Zamudio - 03/19/2019 9:48 AM CDT Refill request sent per protocol to provider SARTHAK: 01/11/19 NOV: 03/27/19 documented in this encounter Plan of Treatment Upcoming Encounters Date Type Department Care Team (Late st Contact Info) Description 06/12/2025 1:00 PM CDT Office Visit [facility] - Neurology [address] [facility] [place] [address] Rosy Cabrera APRN-SCRAP PREPARATION SUPERVISOR [address] [place] [phone] documented as of this encounter Visit Diagnoses Diagnosis Primary osteoarthritis of both knees Primary localized osteoarthrosis, lower leg documented in this encounter Care Teams Apparel Pattern Maker Relationship Specialty Start Date End Date Tatum Rice DO [address] [place] [address] PCP - General 12/17/18 05/12/19 Rasheed Rebolledo DO [address] [place] [address] PCP - General 07/04/19 01/05/21 Tatum Rice DO [address] [place] [address] DIV [place] [address] PCP - General 01/06/21 12/12/23 Amie Hickman MD [address] [place] [address] DIV OF INT MED [address] [place] [phone] PCP - General Internal Medicine 08/27/24 Rasheed Rebolledo DO [address] [place] [address] Resident - PCP Student Resident 07/04/19 06/17/21 Jazmín San MD [address] [facility] [place] [address] Resident - PCP Student Resident 06/18/21 08/26/24 Tatum Rice DO [address] DIV [place] [address] Physician Internal Medicine 12/28/23 Gautam Carlson MD [address] [facility] [address] [place] [address] Hematology and Oncology 11/27/24 documented as of this encounter
--- OUTSIDE RECORDS SUMMARY | 2025-02-28 14:04 | XMS_ITS ---
Author Organization [facility], Address [address] [place] [address] Care Team Providers Care Band Reamer Machine Operator Name Role Phone Tatum Rice DO Primary Care Provider Unavaila Austyn Lopez Unavailable [phone] REASON FOR VISIT Arthritis of right AC joint, Right rotator cuff tendonitis, s/p CSI on 12/16/24 Encounters Encounter Location Date Provider Diagnosis . [facility] [place] [address] [place] [address] 02/12/2025 Austyn Martinez PLAN OF TREATMENT No Information
[2025-02-28 14:17] LABS: Anisocytosis 1+; Band Neutrophils Percent 0 % (0-6); Eosinophils Absolute Manual 0.93 K/mm3 (0.02-0.50); Eosinophils Percent Manual 7 % (0-4); Lymphocytes Absolute Manual 4.55 K/mm3 (1.1-4.5); Lymphocytes Percent Manual 34 % (18-44); Monocytes Percent Manual 6 % (3-9); Neutrophils Percent Manual 53 % (46-73); Platelet Estimate Adequate (Adequate); Schistocytes None Seen; Total Cells Counted 100
--- NOTE | 2025-02-28 15:20 | PC.NURSE ---
spoke with ERP about patients pain after recieving 4mg morphine, ERP prescribed Percocet at the time. patient still complaining of pain.
[2025-02-28] MEDS: oxyCODONE/ACETAMINOPHEN (*CRX) 5-325 MG TABLET 1 TABLET PO (15:34)
--- NOTE | 2025-02-28 16:04 | ED_ITS ---
HPI - General Adult General Chief complaint: Extremity Problem,Nontraumatic Stated complaint: increased weakness Time Seen by Provider: 02/28/25 12:35 Source: patient Mode of arrival: EMS Limitations: no limitations History of Present Illness HPI narrative: 69-year-old with a history of diabetes recent history of trauma subdural bleed was at the rehab center presents to to the ER with a complains of bilateral leg pain more so on the right and right shoulder pain and increased weakness. She denies any recent fall. Patient states that Tylenol which she is taking for pain is not helping her. She denies any fever or chills no history of nausea vomiting or abdominal pain Onset (ago): day(s) (1) Severity: moderate Pain Consistency: constant Relieving factors: none Exacerbating factors: none Associated symptoms: denies other symptoms Related Data Home Medications ?Medication ?Instructions ?Recorded ?Confirmed ?Last Taken ?Type levothyroxine 50 mcg tablet 50 mcg PO QAM 05/23/23 01/25/25 01/25/25 05:55 History montelukast 10 mg tablet 10 mg PO HS 05/23/23 01/25/25 01/25/25 History aspirin 81 mg chewable tablet 81 mg PO DAILY 10/09/23 01/25/25 01/25/25 08:35 History atorvastatin 80 mg tablet 80 mg PO DAILY 10/09/23 01/25/25 01/25/25 08:35 History biotin 5 mg capsule 5 mg PO DAILY 10/09/23 01/25/25 01/25/25 History glipizide 5 mg tablet 5 mg PO BID 10/09/23 01/25/25 01/25/25 History carvedilol 12.5 mg tablet 12.5 mg PO BIDWMEAL 08/26/24 01/25/25 01/25/25 17:05 History aluminum-magnesium hydroxide 200 15 ml PO Q6H PRN heartburn 01/15/25 01/25/25 Unknown History mg-200 mg/5 mL oral suspension cetirizine 10 mg capsule (Allergy 10 mg PO DAILY 01/15/25 01/25/25 01/25/25 History Relief (cetirizine)) clonazepam 0.5 mg tablet (Klonopin) 0.5 mg PO Q12H 01/15/25 01/25/25 01/25/25 History clopidogrel 75 mg tablet 75 mg PO DAILY 01/15/25 01/25/25 Unknown History cyanocobalamin (vitamin B-12) 1,000 mcg PO DAILY 01/15/25 01/25/25 01/25/25 08:35 History 1,000 mcg tablet cyclobenzaprine 10 mg tablet 10 mg PO TID PRN muscle spasm 01/15/25 01/25/25 Unknown History diclofenac sodium 1 % topical gel 2 g topical TID 01/15/25 01/25/25 01/25/25 History (Arthritis Pain (diclofenac)) duloxetine 60 mg capsule,delayed 60 mg PO DAILY 01/15/25 01/25/25 01/25/25 20:40 History release gabapentin 300 mg capsule 300 mg PO TID 01/15/25 01/25/25 01/25/25 20:40 History iyvnguohqcg-iyk-sdoejkyem-vitC 1 cap PO DAILY 01/15/25 01/25/25 01/25/25 History capsule insulin aspart U-100 100 unit/mL 6 unit subcut TID 01/15/25 01/25/25 01/25/25 History (3 mL) subcutaneous pen insulin glargine 100 unit/mL (3 25 unit subcut DAILY 01/15/25 01/25/25 01/25/25 History mL) subcutaneous pen (Lantus Solostar U-100 Insulin) levetiracetam 1,000 mg tablet 500 mg PO BID 01/15/25 01/25/25 Unknown History levetiracetam 500 mg tablet 500 mg PO HS 01/15/25 01/25/25 01/25/25 History meclizine 25 mg tablet 25 mg PO BID 01/15/25 01/25/25 01/25/25 History nilotinib HCl 200 mg capsule 400 mg PO BID 01/15/25 01/25/25 01/25/25 History oxycodone 5 mg tablet 5 mg PO Q4H PRN pain 01/15/25 01/25/25 01/25/25 20:40 History sennosides 8.6 mg-docusate sodium 1 tab-cap PO BID 01/15/25 01/25/25 01/25/25 History 50 mg tablet acetaminophen 500 mg capsule 1,000 mg PO Q6H PRN fever or pain 01/25/25 01/25/25 01/25/25 20:40 History bisacodyl 10 mg rectal suppository 10 mg RECTAL DAILY PRN constipation 01/25/25 01/25/25 01/25/25 10:25 History docusate sodium 100 mg capsule 100 mg PO BID 01/25/25 01/25/25 01/25/25 20:40 History famotidine 10 mg tablet 10 mg PO DAILY 01/25/25 01/25/25 01/25/25 History lidocaine 5 % topical patch 2 patch topical DAILY 01/25/25 01/25/25 01/25/25 History Allergies Allergy/AdvReac Type Severity Reaction Status Date / Time house dust mite Allergy Mild Sneezing Verified 01/25/25 23:37 bupropion AdvReac Mild MIGRAINE Verified 01/25/25 23:37 codeine AdvReac Mild NAUSEA/VOMI Verified 01/25/25 23:37 TING losartan AdvReac Cough Verified 01/25/25 23:37 Review of Systems 2 Review of Systems: All systems reviewed & are unremarkable except as noted in HPI and below Constitutional: Constitutional: Reports no additional constitutional complaints Eyes: Eyes: Reports no additional eye complaints ENT: Reports system reviewed and no additional complaints, except as documented Cardiovascular: Cardiovascular: Reports no additional cardiovascular complaints Gastrointestinal: Gastrointestinal: Reports no additional gastrointestinal complaints Musculoskeletal: Musculoskeletal: Reports as per HPI Neurologic: Reports system reviewed and no additional complaints, except as documented Endocrine: Endocrine: Reports no additional endocrine complaints Hematologic/Lymphatic: Hematologic/Lymphatic: Reports no additional hematologic/lymphatic complaints [facility] Past Medical History Medical History Osteopenia due to cancer therapy HLD (hyperlipidemia) Anemia Mood disorder Hypothyroidism GERD (gastroesophageal reflux disease) Recurrent falls Cachexia Seizure disorder Chronic myelogenous leukemia Type 2 diabetes mellitus Arthritis Depression Anxiety Hypertension Surgical History Surgical History History of tonsillectomy History of carpal tunnel release of both wrists Dr [place] History of arthroscopic knee surgery left x 3- Shyla Guan History of rotator cuff surgery left - Dr Mansfield Family History Family History Mother Diabetes mellitus Cancer Hypertension Anxiety Depression Heart disease Heart attack Father Hypertension Depression Alcoholic Sibling Heart attack Depression Anxiety Hypertension Other Heart attack Social History Social History Social History: Surrogate medical decision maker: Clay Ospina, brother. Code status: Full code. Smoking status: Never smoker Alcohol intake: never Alcohol use details: rarely Substance use: never Substance use type: does not use Do You Feel Safe in your Home?: Yes Lack of Transportation: No Lack of Food: Never True Current Housing: I Have Housing Concerned About Future Housing: No Difficulty Paying Gas/Electric Bills: No Difficulty Paying for Meds: No Currently Unemployed: No Education: Decline to Answer Difficulty w/ Childcare or Family Care: No Living arrangements: alone Occupation/Education: retired Spiritual care concerns: No Exam 2 Narrative: GENERAL: Well-appearing, well-nourished, and in no acute distress. Hypoventilation HEAD: Normocephalic, atraumatic. EYES: PERRLA and EOMI. ENT: Nares clear, no rhinorrhea or epistaxis. Mucous membranes moist. NECK: Supple. CHEST: Clear to auscultation. No respiratory distress. HEART: Regular rate and rhythm. No murmur heard. Normal peripheral pulses. ABDOMEN: Soft, nontender, nondistended, normal active bowel sounds. EXTREMITIES: Normal range of motion. No edema. SKIN: Warm, dry, no rash. NEURO: No focal deficits. Alert and oriented x3. PSYCH: Normal mood and affect. Course Course Emergency Course: Pain improved with Percocet. I did inform her about the lab work. She feels comfortable going home. Advised to take pain medication as prescribed, follow- up with her primary doctor. Fall precautions advised Vital Signs Vital signs: Vital Signs Pulse Rate 80 02/28/25 12:30 Respiratory Rate 18 02/28/25 12:30 Blood Pressure 148/76 H 02/28/25 12:30 Pulse Oximetry 91 02/28/25 12:30 Oxygen Delivery Nasal Cannula 02/28/25 12:30 Oxygen Flow Rate 2 02/28/25 12:30 Pulse Rate 80 02/28/25 12:30 Respiratory Rate 18 02/28/25 12:30 Blood Pressure 148/76 H 02/28/25 12:30 Pulse Oximetry 91 02/28/25 12:30 Oxygen Delivery Nasal Cannula 02/28/25 12:30 Oxygen Flow Rate 2 02/28/25 12:30 Medical Decision Making Vital Signs Vital Signs: Vital Signs Pulse Rate 80 02/28/25 12:30 Respiratory Rate 18 02/28/25 12:30 Blood Pressure 148/76 H 02/28/25 12:30 Pulse Oximetry 91 02/28/25 12:30 Oxygen Delivery Nasal Cannula 02/28/25 12:30 Oxygen Flow Rate 2 02/28/25 12:30 Pulse Rate 80 02/28/25 12:30 Respiratory Rate 18 02/28/25 12:30 Blood Pressure 148/76 H 02/28/25 12:30 Pulse Oximetry 91 02/28/25 12:30 Oxygen Delivery Nasal Cannula 02/28/25 12:30 Oxygen Flow Rate 2 02/28/25 12:30 Lab Data 02/28/25 13:19 02/28/25 13:19 Labs: Lab Results 02/28/25 Range/Units 13:19 WBC 13.4 H (4.5-10.0) K/mm3 RBC 4.61 (4.2-5.4) M/mm3 Hgb 12.4 (12.0-15.0) g/dL Hct 38.9 (37.0-47.0) % MCV 84.4 (80-100) fl MCH 26.9 (26-34) pg MCHC 31.9 L (32-36) g/dl RDW 13.5 (11.5-14.5) % Plt Count 307 (150-375) k/mm3 MPV 10.0 (7.4-10.4) fl Immature Gran % (Auto) Not Reportable Neut % (Auto) Not Reportable Lymph % (Auto) Not Reportable [place] % (Auto) Not Reportable Eos % (Auto) Not Reportable Baso % (Auto) Not Reportable Lymph # (Auto) Not Reportable [place] # (Auto) Not Reportable Eos # (Auto) Not Reportable Baso # (Auto) Not Reportable Abs Immat Gran (auto) Not Reportable Absolute Neuts (auto) Not Reportable Absolute Nucleated RBC Not Reportable Total Counted 100 Neutrophils % (Manual) 53 (46-73) % Band Neutrophils % 0 (0-6) % Lymphocytes % (Manual) 34 (18-44) % Monocytes % (Manual) 6 (3-9) % Eosinophils % (Manual) 7 H (0-4) % Nucleated RBC % Not Reportable Abs Neuts (Manual) 7.10 (1.7-7.2) K/mm3 Abs Lymphs (Manual) 4.55 H (1.1-4.5) K/mm3 Abs Monocytes (Manual) 0.80 (0.1-0.90) K/mm3 Absolute Eos (Manual) 0.93 H (0.02-0.50) K/mm3 Platelet Estimate Adequate (Adequate) Anisocytosis 1+ Schistocytes None seen Sodium 143 (137-145) mmol/L Potassium 4.4 (3.4-5.0) mmol/L Chloride 106 (98-107) mmol/L Carbon Dioxide 18 L (22-30) mmol/L Anion Gap 19 H (4-12) mmol/L BUN 27 H (7-17) mg/dL Creatinine 1.41 H (0.7-1.0) mg/dL Estim Creat Clear Calc 30 ml/min Estimated GFR 37 L (59 - ) Glucose 104 (65-110) mg/dL Calcium 11.0 H (8.4-10.2) mg/dL Total Bilirubin 0.8 (0.2-1.3) mg/dL AST 37 H (14-36) U/L ALT 54 H (6-35) U/L Alkaline Phosphatase 178 H (38-126) U/L Total Protein 8.0 (6.3-8.2) g/dL Albumin 4.7 (3.5-5.1) g/dL Discharge Plan Discharge Clinical Impression: Weakness Leg pain Qualifiers: Laterality: bilateral Qualified Code(s): M79.604 - Pain in right leg Patient Disposition: Home Condition: Stable Instructions: Antibiotic Form Additional Instructions: Continue home medications, follow-up precautions Patient Language: Bengali Prescriptions: New hydrocodone-acetaminophen 5-325 mg tablet 1 tablet PO Q8H PRN (Reason: pain) Qty: 10 0RF No Action levothyroxine 50 mcg tablet 50 mcg PO QAM montelukast 10 mg tablet 10 mg PO HS carvedilol 12.5 mg tablet 12.5 mg PO BIDWMEAL aspirin 81 mg tablet,chewable 81 mg PO DAILY atorvastatin 80 mg tablet 80 mg PO DAILY biotin 5 mg capsule 5 mg PO DAILY glipizide 5 mg tablet 5 mg PO BID Allergy Relief (cetirizine) 10 mg capsule 10 mg PO DAILY clonazepam [Klonopin] 0.5 mg tablet 0.5 mg PO Q12H clopidogrel 75 mg tablet 75 mg PO DAILY Patient Comments: Restart January 27, 2025 cyanocobalamin (vitamin B-12) 1,000 mcg tablet 1,000 mcg PO DAILY cyclobenzaprine 10 mg tablet 10 mg PO TID PRN (Reason: muscle spasm) diclofenac sodium [Arthritis Pain (diclofenac)] 1 % gel 2 g topical TID duloxetine 60 mg capsule,delayed release(DR/EC) 60 mg PO DAILY gabapentin 300 mg capsule 300 mg PO TID dsvjkyqalcn-eck-jwmglmioi-vitC Capsule 1 cap PO DAILY insulin aspart U-100 100 unit/mL (3 mL) insulin pen 6 unit subcut TID Rx Instructions: +sliding scale insulin glargine [Lantus Solostar U-100 Insulin] 100 unit/mL (3 mL) insulin pen 25 unit subcut DAILY levetiracetam 500 mg tablet 500 mg PO HS levetiracetam 1,000 mg tablet 500 mg PO BID aluminum-magnesium hydroxide 200-200 mg/5 mL suspension 15 ml PO Q6H PRN (Reason: heartburn) meclizine 25 mg tablet 25 mg PO BID nilotinib HCl 200 mg capsule 400 mg PO BID Rx Instructions: must be taken on empty stomach; no food at least 2 hrs before or 1 hr after dose oxycodone 5 mg tablet 5 mg PO Q4H PRN (Reason: pain) sennosides-docusate sodium 8.6-50 mg tablet 1 tab-cap PO BID acetaminophen 500 mg capsule 1,000 mg PO Q6H PRN (Reason: fever or pain) bisacodyl 10 mg suppository 10 mg RECTAL DAILY PRN (Reason: constipation) docusate sodium 100 mg capsule 100 mg PO BID famotidine 10 mg tablet 10 mg PO DAILY lidocaine 5 % adhesive patch,medicated 2 patch topical DAILY Rx Instructions: leave on most painful area for up to 12 hrs polyethylene glycol 3350 [Miralax] 17 gram Powder In Packet 17 g PO QAM Qty: 14 0RF calcium carbonate-vitamin D3 [Oyster Shell Calcium-Vit D3] 500 mg-5 mcg (200 unit) Tablet 1 tablet PO TIDWM Qty: 30 0RF Follow-up/Referrals: Sergio Oneill MD [Physician] - UNKNOWN,DOCTOR [Primary Care Provider] - Time of Disposition: 16:14
--- NOTE | 2025-02-28 16:30 | PC.NURSE ---
spoke to rn discharge about discharge, and discussed that the patient has pain in groin and bilateral feet along with faint doppled pedal pulses. told charge loader only labs were done, and no imaging or further testing. erp placed discharge orders. patient was a/o x 4 upon discharge, discussed discharge with the patient, patient was going to call family from the waiting room to pick her up.
--- NOTE | 2025-02-28 21:58 | PC.NURSE ---
was passed a phone call from the meteorologist in charge about this patient, sibling was looking for the patient and stated that she was missing and no one picked her up. this rn told the patients sibling that she stated during discharge that the patient said that she was going to call a family member to pick her up. a tech took the patient to the waiting room to wait for her family member under the direction of day shift meteorologist in charge.
== END 2025-02-28 17:14 | disposition home or self-care (01) ==
PROVIDERS: Emergency Provider Family Medicine
DX: M79.604 Pain in right leg (principal); M79.605 Pain in left leg; R53.1 Weakness; C92.10 Chronic myeloid leukemia, BCR/ABL-positive, not having achieved remission; E11.9 Type 2 diabetes mellitus without complications; E78.5 Hyperlipidemia, unspecified; E03.9 Hypothyroidism, unspecified; G40.909 Epilepsy, unspecified, not intractable, without status epilepticus; K21.9 Gastro-esophageal reflux disease without esophagitis; M19.90 Unspecified osteoarthritis, unspecified site; Z79.899 Other long term (current) drug therapy; Z79.84 Long term (current) use of oral hypoglycemic drugs; Z79.4 Long term (current) use of insulin; Z79.02 Long term (current) use of antithrombotics/antiplatelets; Z79.82 Long term (current) use of aspirin
CPT/HCPCS: 36415; 80053; 85025; 96374; 96375; 99284; A9270; J2270; J2405

== ENCOUNTER 2025-06-15 12:43 | Emergency (ER) | payer MEDICARE, SELFPAY ==
[2025-06-15] VITALS (31 sets, daily range): BP systolic 122–150; BP diastolic 57–118; PULSE 62–107; RESP 13–42; TEMP 36.3; O2SAT 100
--- NOTE | ~2025-06-15 | XR_ITS ---
EXAMINATION: XR chest 1V Exam Date/Time: 06/15/2025 14:14 CDT HISTORY: crackles in lower lobes Comparison: 03/26/2012. RESULT: Lines, tubes, and devices: None. Lungs and pleura: Minimal streaky bibasilar scar/atelectasis, otherwise clear. Cardiomediastinal silhouette: Stable. Other: No acute osseous or upper abdominal finding. Subacute/chronic appearing distal right clavicul ar fracture. IMPRESSION: No acute cardiopulmonary process. Reviewed, dictated and finalized at location K.
--- NOTE | ~2025-06-15 | CT_ITS ---
EXAMINATION: CT brain wo con DATE: 06/15/2025 14:27 INDICATION: recent stroke, AMS . TECHNIQUE: Computed tomography (CT) of the head was performed without intravenous contrast. The mA wa s adjusted according to patient size. Iterative reconstruction technique was employed. The dose-lengt h product was 756.67 mGy-cm. COMPARISON: 01/20/2025. FINDINGS: Mixed density 6 mm thick right hemispheric extra-axial collection, with layering dependent hyperdense material. No intraparenchymal. No hydrocephalus, mass, or herniation. Hypodensity with loss of youngblood-white differentiation in the lateral aspect of the occipital lobe and b order of the occipital and parietal lobes. Surrounding gyral hyperdensity. Unremarkable dural venous sinus attenuation. No acute osseous abnormality. Right parietal ron hole. Minimal dependent fluid in the sphenoid sinus. aerated spaces are clear. Mild atrophy and chronic white matter change. Atherosclerotic intracranial calcification. IMPRESSION: Acute left posterior hemisphere infarct, may represent a distal branch SENIOR TAX SPECIALIST infarct or venous infarct. Evidence of petechial hemorrhage. Small volume right subdural collection, decreased in size in the comparison study. May represent acut e subacute subdural with hematocrit effect or CSF mixing, or acute on chronic small subdural hemorrha ge. CT findings may suggest mild acute sphenoid sinusitis in the appropriate clinical context. Results reported telephonically to Yaneli Kumar APRN by Dr. Batista at 2:35 PM on 06/15/2025. Reviewed, dictated and finalized at location K. IMPRESSION: Acute left posterior hemisphere infarct, may represent a distal branch SENIOR TAX SPECIALIST infa rct or venous infarct. Evidence of petechial hemorrhage. Small volume right subdural collection, decreased in size in the comparison timi dy. May represent acute subacute subdural with hematocrit effect or CSF mixing, or acute on chronic small subdural hemorrhage. CT findings may suggest mild acute sphenoid sinusitis in the appropriate clinic al context. Results reported telephonically to Yaneli Kumar APRN by Dr. Batista at 2:35 P M on 06/15/2025.
--- NOTE | ~2025-06-15 | CT_ITS ---
EXAMINATION: CTA brain carotid DATE: 06/15/2025 14:28 INDICATION: recent stroke, AMS TECHNIQUE: Computed tomographic angiography (CTA) of the head was and neck was performed with 100 mL Omnipaque-350 intravenous contrast. Automated exposure control and iterative reconstruction technique were employed. The dose-length product was 984.11 mGy-cm. Maximum intensity projection and volume r endered 3D-reconstructions were created by the technologist on a separate workstation. COMPARISON: CT brain, same date. FINDINGS: CTA HEAD: Severe stenoses in the cavernous portion of the right internal carotid. Gradual tapering of the supra clinoid portions of the carotids with diminutive appearing bilateral M1 segments. There is severe destinee nosis in the left M1 segment. Hypoplastic or absent left A1 segment, a normal variant. No aneurysm, h igh flow vascular malformation, nidus or extravasation. Patent cerebral veins. Suggestion of slightly decreased parenchymal perfusion in the left occipital lobe, abnormality seen better in the prior non contrast CT. Thin right subdural collection. CTA NECK: Aortic arch and proximal great vessels: Normal arch anatomy. Atherosclerotic calcifications at the vi sualized aortic arch and proximal great vessels. Right common carotid, carotid bifurcation, and internal carotid artery: Calcified atherosclerotic ana que at the carotid bifurcation.There is 10% stenosis of the proximal right internal carotid artery re lative to normal distal artery lumen diameter (NASCET criteria). Left common carotid, carotid bifurcation, and internal carotid artery: Calcified atherosclerotic plaq ue at the carotid bifurcation.There is 12% stenosis of the proximal left internal carotid artery rela tive to normal distal artery lumen diameter (NASCET criteria). Vertebral arteries: Focal calcified plaque in the right intradural vertebral artery causing severe st enosis. Hypoplastic/absent left P1 segment. Loss of flow in the left P2 segment. Left vertebral arter y is dominant. Other findings: Grade 1 anterolisthesis at C4-5. Multilevel degenerative disc disease and facet arthr opathy in the cervical spine. Periodontal disease. Minimal air-fluid levels in the sphenoid sinuses. Multiple thyroid nodules measuring up to 1.7 cm. IMPRESSION: Thin right subdural collection. Focal left occipital infarct. Loss of flow, possibly representing occlusion in the left P2 segment. Severe stenosis in the cavernous portion of the right internal carotid artery. Severe stenosis in the left M1 segment. Severe stenosis in the intradural right vertebral artery. Multiple thyroid nodules, consider nonemergent outpatient thyroid ultrasound for further characteriza tion. Results reported telephonically to Yaneli Kumar APRN by Dr. Batista at 2:59 PM on 06/15/2025. Reviewed, dictated and finalized at location K. IMPRESSION: Thin right subdural collection. Focal left occipital infarct. Loss of flow, possibly representing occlusion in the left P2 segment. Severe stenosis in the cavernous portion of the right internal carotid artery. Severe stenosis in the left M1 segment. Severe stenosis in the intradural right vertebral artery. Multiple thyroid nodules, consider nonemergent outpatient thyroid ultrasound fo r further characterization. Results reported telephonically to Yaneli Kumar APRN by Dr. Batista at 2:59 P M on 06/15/2025.
--- NOTE | 2025-06-15 12:48 | ECG_ITS ---
Test Date: 2025-06-15 12:55:05 Measurements Intervals [place] Rate: 69 P: 32 NV: 160 QRS: 50 QRSD: 94 T: 89 QT: 413 QTc: 443 Interpretive Statements SINUS RHYTHM CANNOT R/O SEPTAL INFARCT, AGE INDETERMINATE NONSPECIFIC T-WAVE ABNORMALITY- HIGH LATERAL LEADS BASELINE ARTIFACT- I, II, III, AVR, AVL, AVF ABNORMAL ECG No previous ECG available for comparison Electronically Signed On 06-15-2025 16:21:24 CDT by Gustabo Desai D.O.
[2025-06-15 13:17] LABS: Hematocrit 38.7 % (37.0-47.0); Hemoglobin 12.7 g/dL (12.0-15.0); Immature Granulocyte Percent A 0.5 % (0-0.5); Lymphocytes Absolute Auto 3.41 K/mm3 (0.9-3.2); Mean Corpuscular HGB Conc 32.8 g/dl (32-36); Mean Corpuscular Hemoglobin 27.9 pg (26-34); Mean Corpuscular Volume 84.9 fl (80-100); Nucleated Red Blood Cells Absolute Auto 0.000 K/mm3 (0.0-0.012); Nucleated Red Blood Cells Perc 0.0 % (0.0-0.2); Platelet Count Result 530 k/mm3 (150-375); Red Blood Count 4.56 M/mm3 (4.2-5.4); White Blood Count 8.2 K/mm3 (4.5-10.0)
[2025-06-15 13:58] LABS: Alanine Aminotransferase 13 U/L (6-35); Albumin Level 4.0 g/dL (3.5-5.1); Alkaline Phosphatase 133 U/L (38-126); Anion Gap 11 mmol/L (4-12); Aspartate Amino Transferase 31 U/L (14-36); Bilirubin,Total 0.3 mg/dL (0.2-1.3); Blood Urea Nitrogen 20 mg/dL (7-17); Calcium 10.1 mg/dL (8.4-10.2); Carbon Dioxide 22 mmol/L (22-30); Chloride 98 mmol/L (98-107); Estimated CRCL calculation 35 ml/min; Estimated Glomerular Filt Rate 46; Glucose 173 mg/dL (65-110); Potassium 4.2 mmol/L (3.4-5.0); Sodium 131 mmol/L (137-145); Total Protein 7.3 g/dL (6.3-8.2)
[2025-06-15 14:03] LABS: INR 1.0; Prothrombin Time 13.5 Seconds (11.1-14.7)
[2025-06-15 14:04] LABS: Partial Thromboplastin Time 28.3 Seconds (22.3-36.8)
--- NOTE | 2025-06-15 14:05 | ED_ITS ---
HPI - Altered Mental Status General Chief Complaint: Altered Mental Status <Yaneli Kumar APRN - Last Filed: 06/15/25 19:02> Stated Complaint: AMS <Yaneli Kumar APRN - Last Filed: 06/15/25 19:02> Time Seen by Provider: 06/15/25 13:51 <Yaneli Kumar APRN - Last Filed: 06/15/25 19:02> History of Present Illness HPI narrative: Patient is a 70-year-old female who presents to the ER with altered mental status. Her PM & R note from June 10, 2025 reads... Maripoas Ramirez is a 70 year old female with a complex medical history including hypertension, dyslipidemia, peripheral arterial disease (PAD), depression, hypothyroidism with thyroid nodules, dementia, chronic myelogenous leukemia, epilepsy, type 2 diabetes mellitus (insulin-dependent), chronic kidney disease II, heart failure with reduced ejection fraction (HFrEF, EF 40% per TTE on 06/02/25), prior CVA, and subdural hematoma status post ron hole evacuation (4 months ago). She was admitted to [facility] with new-onset right-sided weakness and altered mental status. Brain MRI revealed a large acute/subacute left cerebral infarct. Neurology was consulted and recommended dual antiplatelet therapy and holding anticoagulation for 2 weeks. Her hospitalization was further complicated with diarrhea and was diagnosed with C-DIFF, thought to be triggered by recent broad-spectrum antibiotics for presumed aspiration pneumonia. ID was consulted and broad-spectrum antibiotics were discontinued on 06/04, and she was started on Fidaxomicin with a recommended 10 days of treatment. Per EMS, patient has been [facility] for approximately 5 days. EMS was unable to establish patient's baseline mental status. At time of examination she is able to answer questions with ?yes or no. It is unclear what medications patient has been receiving at [facility]. <Yaneli Kumar APRN - Last Filed: 06/15/25 19:02> Related Data Home Medications: Home Medications ?Medication ?Instructions ?Recorded ?Confirmed ?Last Taken ?Type levothyroxine 50 mcg tablet 75 mcg PO QAM 05/23/23 06/10/25 06/10/25 05:55 History montelukast 10 mg tablet 10 mg PO HS 05/23/23 06/10/25 06/09/25 22:05 History atorvastatin 80 mg tablet 80 mg PO DAILY 10/09/23 06/10/25 06/10/25 09:10 History biotin 5 mg capsule 5 mg PO DAILY 10/09/23 06/10/25 03/04/25 09:00 History 5 mg cetirizine 10 mg capsule (Allergy 10 mg PO DAILY 01/15/25 06/10/25 03/04/25 09:00 History Relief (cetirizine)) 10 mg clopidogrel 75 mg tablet 75 mg PO DAILY 01/15/25 06/10/25 06/10/25 09:10 History cyanocobalamin (vitamin B-12) 1,000 mcg PO DAILY 01/15/25 06/10/25 03/04/25 09:00 History 1,000 mcg tablet 1,000 mcg diclofenac sodium 1 % topical gel 2 g topical TID 01/15/25 06/10/25 03/04/25 12:00 History (Arthritis Pain (diclofenac)) 2 g duloxetine 60 mg capsule,delayed 60 mg PO DAILY 01/15/25 06/10/25 06/10/25 09:10 History release qnevuduglar-dzq-xzbshblgm-vitC 1 cap PO DAILY 01/15/25 06/10/25 03/04/25 09:00 History capsule 1 cap bisacodyl 10 mg rectal suppository 10 mg RECTAL DAILY PRN constipation 01/25/25 06/10/25 01/25/25 10:25 History docusate sodium 100 mg capsule 100 mg PO BID constipation 01/25/25 06/10/25 03/04/25 09:00 History 100 mg famotidine 10 mg tablet 10 mg PO DAILY 01/25/25 06/10/25 03/04/25 09:00 History 10 mg asciminib 40 mg tablet 40 mg PO BID 03/04/25 06/10/25 03/04/25 09:00 History 40 mg calcium 500 mg (as 1 tablet PO DAILY 03/04/25 06/10/25 03/04/25 09:00 History carbonate)-vitamin D3 15 mcg (600 1 tablet unit) tablet ramelteon 8 mg tablet 8 mg PO HS 03/04/25 06/10/25 06/07/25 20:20 History acetaminophen 500 mg capsule 1,000 mg PO Q6H 03/05/25 06/10/25 06/09/25 10:05 History insulin aspart 1 sliding scale dose subcut .TIDAC 03/05/25 06/10/25 Unknown History (niacinamide)(U-100) 100 unit/mL(3 mL) subcutaneous pen (Fiasp FlexTouch U-100 Insulin) insulin aspart U-100 100 unit/mL 1 sliding scale dose subcut HS 03/05/25 06/10/25 Unknown History (3 mL) subcutaneous pen (Novolog FlexPen U-100 Insulin aspart) amlodipine 10 mg tablet (Norvasc) 10 mg PO DAILY 06/10/25 06/10/25 06/10/25 09:10 History baclofen 5 mg tablet 5 mg PO TIDWMEAL 06/10/25 06/10/25 06/10/25 12:00 History carvedilol 12.5 mg tablet 12.5 mg PO BIDWMEAL 06/10/25 06/10/25 06/10/25 09:10 History gabapentin 100 mg capsule 100 mg PO TID 06/10/25 06/10/25 06/10/25 16:20 History ondansetron 4 mg disintegrating 4 mg PO Q6H PRN Nausea And Vomiting 06/10/25 06/10/25 Unknown History tablet oxcarbazepine 600 mg tablet 600 mg PO BID 06/10/25 06/10/25 06/10/25 09:10 History polyethylene glycol 3350 17 gram 17 g PO QAM PRN constipation 06/10/25 06/10/25 Unknown History oral powder packet (Miralax) ropinirole 0.5 mg tablet 0.5 mg PO QHS 06/10/25 06/10/25 06/09/25 22:05 History sacubitril 24 mg-valsartan 26 mg 1 tablet PO BID 06/10/25 06/10/25 06/10/25 09:10 History tablet (Entresto) spironolactone 25 mg tablet 25 mg PO DAILY 06/10/25 06/10/25 06/10/25 09:10 History (Aldactone) vancomycin 125 mg capsule 125 mg PO Q6H 06/10/25 06/10/25 06/10/25 16:20 History (Vancocin) <Yaneliashtyn Kumar APRN - Last Filed: 06/15/25 19:02> Allergies/Adverse Reactions: Allergies Allergy/AdvReac Type Severity Reaction Status Date / Time house dust mite Allergy Mild Sneezing Verified 03/05/25 10:46 [place] nut Allergy Swelling Verified 03/06/25 17:33 of Lip/Tongue/Throat bupropion AdvReac Mild MIGRAINE Verified 03/05/25 10:46 codeine AdvReac Mild NAUSEA/VOMI Verified 03/05/25 10:46 TING losartan AdvReac Cough Verified 03/05/25 10:46 beets Allergy Severe throat Uncoded 03/05/25 10:46 swelling <Yaneli Kumar APRN - Last Filed: 06/15/25 19:02> Review of Systems 2 Review of Systems: All systems reviewed & are unremarkable except as noted in HPI and below <Yaneli Kumar APRN - Last Filed: 06/15/25 19:02> PMFSH Past Medical History Medical History: Medical History Osteopenia due to cancer therapy HLD (hyperlipidemia) Anemia Mood disorder Hypothyroidism GERD (gastroesophageal reflux disease) Recurrent falls Cachexia Seizure disorder Chronic myelogenous leukemia Type 2 diabetes mellitus Arthritis Depression Anxiety Hypertension <Yaneli Kumar APRN - Last Filed: 06/15/25 19:02> Surgical History Surgical History: Surgical History History of tonsillectomy History of carpal tunnel release of both wrists Dr Mansfield History of arthroscopic knee surgery left x 3- Shyla Guan History of rotator cuff surgery left - Dr Mansfield <Yaneli Kumar APRN - Last Filed: 06/15/25 19:02> Family History Family History: Family History Mother Diabetes mellitus Cancer Hypertension Anxiety Depression Heart disease Heart attack Father Hypertension Depression Alcoholic Sibling Heart attack Depression Anxiety Hypertension Other Heart attack <Yaneli Kumar APRN - Last Filed: 06/15/25 19:02> Social History Social History: Social History Social History: Surrogate medical decision maker: Clay Ospina, brother. Code status: Full code. Smoking status: Unknown if ever smoked Alcohol intake: unknown Alcohol use details: rarely Substance use: never Substance use type: does not use Do You Feel Safe in your Home?: Yes Lack of Transportation: No Lack of Food: Never True Current Housing: I Have Housing Concerned About Future Housing: No Difficulty Paying Gas/Electric Bills: No Difficulty Paying for Meds: No Currently Unemployed: No Education: High School Diploma/GED Difficulty w/ Childcare or Family Care: No Living arrangements: alone Occupation/Education: retired Spiritual care concerns: No <Yaneli Kumar APRN - Last Filed: 06/15/25 19:02> Exam 2 Narrative: GENERAL: Ill appearing, well-nourished, non-toxic, in no acute distress. HEAD: Normocephalic, atraumatic. NECK: Supple. No adenopathy, no masses. RESPIRATORY: Airway patent, respirations nonlabored. Crackles to bases bilaterally, no wheezing. CARDIOVASCULAR: Regular rate and rhythm without murmurs, rubs, or gallops. Peripheral pulses 2+ and equal bilaterally. ABDOMINAL: Soft, nontender, nondistended, no hepatosplenomegaly. Normoactive BS. MUSCULOSKELETAL: Moves all extremities. Strength/ROM intact without gross deformities. SKIN: Warm, dry, normal color. No rashes. NEURO: NIH of 19 @ initial exam PSYCHIATRIC: Flat affect <Yaneli Kumar APRN - Last Filed: 06/15/25 19:02> Course CRYPTOGRAPHER/PA Physician Supervision For this patient encounter, I reviewed the CRYPTOGRAPHER or PA documentation, treatment plan, and medical decision making; and I had [id number] time with this patient. <Raulito Singh MD - Last Filed: 06/20/25 13:59> Vital Signs Vital signs: Vital Signs Temperature 97.4 F L 06/15/25 12:39 Pulse Rate 70 06/15/25 12:39 Respiratory Rate 20 06/15/25 12:39 Blood Pressure 141/64 H 06/15/25 12:39 Pulse Oximetry 100 06/15/25 12:39 Oxygen Delivery Room Air 06/15/25 12:39 Temperature 97.4 F L 06/15/25 12:39 Pulse Rate 88 06/15/25 17:31 Respiratory Rate 14 06/15/25 17:31 Blood Pressure 135/57 L 06/15/25 17:31 Pulse Oximetry 100 06/15/25 15:16 Oxygen Delivery Room Air 06/15/25 13:20 <Yaneli Kumar APRN - Last Filed: 06/15/25 19:02> Vital Signs Temperature 97.4 F L 06/15/25 12:39 Pulse Rate 70 06/15/25 12:39 Respiratory Rate 20 06/15/25 12:39 Blood Pressure 141/64 H 06/15/25 12:39 Pulse Oximetry 100 06/15/25 12:39 Oxygen Delivery Room Air 06/15/25 12:39 Temperature 97.4 F L 06/15/25 12:39 Pulse Rate 88 06/15/25 17:31 Respiratory Rate 14 06/15/25 17:31 Blood Pressure 135/57 L 06/15/25 17:31 Pulse Oximetry 100 06/15/25 15:16 Oxygen Delivery Room Air 06/15/25 13:20 <Raulito Singh MD - Last Filed: 06/20/25 13:59> MDM - Altered Mental Status MDM Narrative Medical decision making narrative: Patient is a 70-year-old female who presents to the ER with altered mental status. * Pt is not a candidate for TNK as she has a previous head bleed. * Care Home does not report pt had any witnessed falls. NIH Stroke Scale/Score (NIHSS) from [employer] on 06/15/2025 All calculations should be rechecked by clinician prior to use RESULT SUMMARY: 19 points NIH Stroke Scale INPUTS: 1A: Level of consciousness ?> 0 = Alert; keenly responsive 1B: Ask month and age ?> 2 = 0 questions right 1C: 'Blink eyes' & 'squeeze hands' ?> 2 = Performs 0 tasks 2: Horizontal extraocular movements ?> 0 = Normal 3: Visual gaspar ?> 0 = No visual loss 4: Facial palsy ?> 0 = Normal symmetry 5A: Left arm motor drift ?> 0 = No drift for 10 seconds 5B: Right arm motor drift ?> 4 = No movement 6A: Left leg motor drift ?> 3 = No effort against gravity 6B: Right leg motor drift ?> 2 = Some effort against gravity 7: Limb Ataxia ?> 0 = Does not understand 8: Sensation ?> 0 = Normal; no sensory loss 9: Language/aphasia ?> 2 = Severe aphasia: fragmentary expression, inference needed, cannot identify materials 10: Dysarthria ?> 2 = Mute/anarthric 11: Extinction/inattention ?> 2 = Profound attila-inattention (ex: does not recognize own hand) Labs Ordered: CBC, CMP, UDS, TSH, PTT, INR, UA Imaging Ordered: CT brain, CTA brain/carotid Medications Ordered: None necessary Results: Pt's brain CT indicates Acute left posterior hemisphere infarct, may represent a distal branch CONFIGURATION MANAGEMENT ADMINISTRATOR infarct or venous infarct. Evidence of petechial hemorrhage. Small volume right subdural collection, decreased in size in the comparison study. May represent acute subacute subdural with hematocrit effect or CSF mixing, or acute on chronic small subdural hemorrhage. CT findings may suggest mild acute sphenoid sinusitis in the appropriate clinical context. Diagnosis: sub acute subdural hemorrhage, subarachnoid hemorrhage, acute L posterior hemisphere infarct Risks: HEART score, PECARN score, CURB-65 score 1600-NIH changed NIH Stroke Scale/Score (NIHSS) from [employer] on 06/15/2025 All calculations should be rechecked by clinician prior to use RESULT SUMMARY: 10 points NIH Stroke Scale INPUTS: 1A: Level of consciousness ?> 0 = Alert; keenly responsive 1B: Ask month and age ?> 2 = 0 questions right 1C: 'Blink eyes' & 'squeeze hands' ?> 2 = Performs 0 tasks 2: Horizontal extraocular movements ?> 0 = Normal 3: Visual gaspar ?> 0 = No visual loss 4: Facial palsy ?> 0 = Normal symmetry 5A: Left arm motor drift ?> 0 = No drift for 10 seconds 5B: Right arm motor drift ?> 0 = No drift for 10 seconds 6A: Left leg motor drift ?> 2 = Some effort against gravity 6B: Right leg motor drift ?> 2 = Some effort against gravity 7: Limb Ataxia ?> 0 = Does not understand 8: Sensation ?> 0 = Normal; no sensory loss 9: Language/aphasia ?> 0 = Normal; no aphasia 10: Dysarthria ?> 0 = Intubated/unable to test 11: Extinction/inattention ?> 2 = Profound attila-inattention (ex: does not recognize own hand) Consults: 1600- Spoke with neurologist at [facility], who would like to discuss case with his attending and call our facility back. 1700- Spoke with [facility] neurologist again who is concerned pt has a subarachnoid hemorrhage on her CT scan also. He would like pt to go to the neuro ICU, but they would like pt to get to their facility quickly for evaluation, so pt will be transferred to the ER. 1730- Spoke with [facility] transfer line who reports the ER wants to talk to neurology before accepting pt in the ER. They report they will call back with further details. 1800- [facility] called [facility] transfer line back. They report pt was admitted to the ER at 1730, although provider wasn't notified. 1840- Dr. Mon, ER physician, accepted pt. Pt will be transferred to [facility] ER via helicopter. Pt's mental status has not changed since her assessment at 1600. CRITICAL CARE ADDENDUM: Indication: resp failure, COPD exacerbation requiring NIPPV Time type: intermittent I provided a total of 45 minutes of critical care excluding separately billable procedures. This includes time w/ EMS, initial bedside evaluation, reviewing old records, review of testing done while under my care, discussion w/ the family, nurses, sr technical sales consultant and guiding the patient?s care while in the emergency department. Approximate time distribution: 10 minutes ? Initial evaluation, d/w involved parties, attempting to gather old records. 10 minutes ? Documenting medical record 5 minutes ? Review of results (EKGs, labs, imaging) 10 minutes ? Serial repeat bedside evaluation 10 minutes ? Discussing case with multiple providers Please see main chart for details. Excludes separately billable procedures. <Yaneli Kumar, COLD ROLL INSPECTOR - Last Filed: 06/15/25 19:02> Differential Diagnosis Differential diagnosis: Likely altered mental status, subarachnoid hemorrhage and other (sub acute hemorrhage) <Yaneli Kumar APRN - Last Filed: 06/15/25 19:02> Lab Data Attestation: I reviewed the patient's lab results. <Yaneli Kumar APRN - Last Filed: 06/15/25 19:02> Result diagrams: 06/15/25 13:09 06/15/25 14:09 <Yaneli L. [place], COLD ROLL INSPECTOR - Last Filed: 06/15/25 19:02> Labs: Lab Results 06/15/25 06/15/25 06/15/25 Range/Units 13:09 13:39 13:41 WBC 8.2 (4.5-10.0) K/mm3 RBC 4.56 (4.2-5.4) M/mm3 Hgb 12.7 (12.0-15.0) g/dL Hct 38.7 (37.0-47.0) % MCV 84.9 (80-100) fl MCH 27.9 (26-34) pg MCHC 32.8 (32-36) g/dl RDW 14.5 (11.5-14.5) % Plt Count 530 H (150-375) k/mm3 MPV 9.7 (7.4-10.4) fl Immature Gran % (Auto) 0.5 (0-0.5) % Neut % (Auto) 45.7 (45.5-73.1) % Lymph % (Auto) 41.4 (18.3-44.2) % [place] % (Auto) 5.2 (2.6-8.5) % Eos % (Auto) 5.9 H (0-4.4) % Baso % (Auto) 1.3 H (0.2-1.2) % Lymph # (Auto) 3.41 H (0.9-3.2) K/mm3 [place] # (Auto) 0.4 (0.1-0.6) K/mm3 Eos # (Auto) 0.5 H (0-0.3) K/mm3 Baso # (Auto) 0.1 (0.0-0.1) K/mm3 Abs Immat Gran (auto) 0.04 H (0.00-0.031) K/mm3 Absolute Neuts (auto) 3.8 (1.3-6.7) K/mm3 Absolute Nucleated RBC 0.000 (0.0-0.012) K/mm3 Nucleated RBC % 0.0 (0.0-0.2) % PT 13.5 (11.1-14.7) Seconds INR 1.0 APTT 28.3 (22.3-36.8) Seconds Sodium 131 L (137-145) mmol/L Potassium 4.2 (3.4-5.0) mmol/L Chloride 98 (98-107) mmol/L Carbon Dioxide 22 (22-30) mmol/L Anion Gap 11 (4-12) mmol/L BUN 20 H (7-17) mg/dL Creatinine 1.16 H (0.7-1.0) mg/dL Estim Creat Clear Calc 35 ml/min Estimated GFR 46 L (59 - ) Glucose 173 H (65-110) mg/dL POC Capillary Glucose (65-105) mg/dl Calcium 10.1 (8.4-10.2) mg/dL Total Bilirubin 0.3 (0.2-1.3) mg/dL AST 31 (14-36) U/L ALT 13 (6-35) U/L Alkaline Phosphatase 133 H (38-126) U/L Total Protein 7.3 (6.3-8.2) g/dL Albumin 4.0 (3.5-5.1) g/dL TSH (Reflex) 3.790 (0.465-4.68) uIU/mL Urine Color (Yellow) Urine Appearance (Clear) Urine pH (5.0-9.0) Ur Specific [place] (1.001-1.035) Urine Protein (Negative) mg/dL Urine Glucose (UA) (Negative) mg/dL Urine Ketones (Negative) mg/dL Ur Blood (Man) (Negative) Urine Nitrate (Negative) Urine Bilirubin (Negative) Urine Urobilinogen (<2.0) mg/dL Leukocyte Esterase Rfl (Negative) SHAYLEE/UL Urine RBC (0-2) /hpf Urine WBC (0-3) /hpf Ur Squamous Epith Cells (Few) /hpf Urine Bacteria /hpf Urine Casts Urine Opiates Screen (Negative) Urine Methadone Screen (Negative) Ur Barbiturates Screen (Negative) Ur Phencyclidine Scrn (Negative) Ur Amphetamine Screen (Negative) U Benzodiazepines Scrn (Negative) Urine Cocaine Screen (Negative) U Cannabinoids Screen (Negative) 06/15/25 06/15/25 06/15/25 Range/Units 13:57 14:09 16:49 WBC (4.5-10.0) K/mm3 RBC (4.2-5.4) M/mm3 Hgb (12.0-15.0) g/dL Hct (37.0-47.0) % MCV (80-100) fl MCH (26-34) pg MCHC (32-36) g/dl RDW (11.5-14.5) % Plt Count (150-375) k/mm3 MPV (7.4-10.4) fl Immature Gran % (Auto) (0-0.5) % Neut % (Auto) (45.5-73.1) % Lymph % (Auto) (18.3-44.2) % [place] % (Auto) (2.6-8.5) % Eos % (Auto) (0-4.4) % Baso % (Auto) (0.2-1.2) % Lymph # (Auto) (0.9-3.2) K/mm3 [place] # (Auto) (0.1-0.6) K/mm3 Eos # (Auto) (0-0.3) K/mm3 Baso # (Auto) (0.0-0.1) K/mm3 Abs Immat Gran (auto) (0.00-0.031) K/mm3 Absolute Neuts (auto) (1.3-6.7) K/mm3 Absolute Nucleated RBC (0.0-0.012) K/mm3 Nucleated RBC % (0.0-0.2) % PT (11.1-14.7) Seconds INR APTT (22.3-36.8) Seconds Sodium (137-145) mmol/L Potassium (3.4-5.0) mmol/L Chloride (98-107) mmol/L Carbon Dioxide (22-30) mmol/L Anion Gap (4-12) mmol/L BUN (7-17) mg/dL Creatinine 1.30 H (0.7-1.0) mg/dL Estim Creat Clear Calc 31 ml/min Estimated GFR 40 L (59 - ) Glucose (65-110) mg/dL POC Capillary Glucose 177 H (65-105) mg/dl Calcium (8.4-10.2) mg/dL Total Bilirubin (0.2-1.3) mg/dL AST (14-36) U/L ALT (6-35) U/L Alkaline Phosphatase (38-126) U/L Total Protein (6.3-8.2) g/dL Albumin (3.5-5.1) g/dL TSH (Reflex) (0.465-4.68) uIU/mL Urine Color Yellow (Yellow) Urine Appearance Clear (Clear) Urine pH 6.0 (5.0-9.0) Ur Specific [place] > 1.045 H (1.001-1.035) Urine Protein 1+ H (Negative) mg/dL Urine Glucose (UA) Negative (Negative) mg/dL Urine Ketones Negative (Negative) mg/dL Ur Blood (Man) Negative (Negative) Urine Nitrate Negative (Negative) Urine Bilirubin Negative (Negative) Urine Urobilinogen 0.2 (<2.0) mg/dL Leukocyte Esterase Rfl Negative (Negative) SHAYLEE/UL Urine RBC 0-2 (0-2) /hpf Urine WBC 0-5 (0-3) /hpf Ur Squamous Epith Cells None seen (Few) /hpf Urine Bacteria None seen /hpf Urine Casts 0-2 Urine Opiates Screen Negative (Negative) Urine Methadone Screen Negative (Negative) Ur Barbiturates Screen Negative (Negative) Ur Phencyclidine Scrn Negative (Negative) Ur Amphetamine Screen Negative (Negative) U Benzodiazepines Scrn Negative (Negative) Urine Cocaine Screen Negative (Negative) U Cannabinoids Screen Negative (Negative) <Yaneli Kumar, COLD ROLL INSPECTOR - Last Filed: 06/15/25 19:02> Lab Results 06/15/25 06/15/25 06/15/25 Range/Units 13:09 13:39 13:41 WBC 8.2 (4.5-10.0) K/mm3 RBC 4.56 (4.2-5.4) M/mm3 Hgb 12.7 (12.0-15.0) g/dL Hct 38.7 (37.0-47.0) % MCV 84.9 (80-100) fl MCH 27.9 (26-34) pg MCHC 32.8 (32-36) g/dl RDW 14.5 (11.5-14.5) % Plt Count 530 H (150-375) k/mm3 MPV 9.7 (7.4-10.4) fl Immature Gran % (Auto) 0.5 (0-0.5) % Neut % (Auto) 45.7 (45.5-73.1) % Lymph % (Auto) 41.4 (18.3-44.2) % [place] % (Auto) 5.2 (2.6-8.5) % Eos % (Auto) 5.9 H (0-4.4) % Baso % (Auto) 1.3 H (0.2-1.2) % Lymph # (Auto) 3.41 H (0.9-3.2) K/mm3 [place] # (Auto) 0.4 (0.1-0.6) K/mm3 Eos # (Auto) 0.5 H (0-0.3) K/mm3 Baso # (Auto) 0.1 (0.0-0.1) K/mm3 Abs Immat Gran (auto) 0.04 H (0.00-0.031) K/mm3 Absolute Neuts (auto) 3.8 (1.3-6.7) K/mm3 Absolute Nucleated RBC 0.000 (0.0-0.012) K/mm3 Nucleated RBC % 0.0 (0.0-0.2) % PT 13.5 (11.1-14.7) Seconds INR 1.0 APTT 28.3 (22.3-36.8) Seconds Sodium 131 L (137-145) mmol/L Potassium 4.2 (3.4-5.0) mmol/L Chloride 98 (98-107) mmol/L Carbon Dioxide 22 (22-30) mmol/L Anion Gap 11 (4-12) mmol/L BUN 20 H (7-17) mg/dL Creatinine 1.16 H (0.7-1.0) mg/dL Estim Creat Clear Calc 35 ml/min Estimated GFR 46 L (59 - ) Glucose 173 H (65-110) mg/dL POC Capillary Glucose (65-105) mg/dl Calcium 10.1 (8.4-10.2) mg/dL Total Bilirubin 0.3 (0.2-1.3) mg/dL AST 31 (14-36) U/L ALT 13 (6-35) U/L Alkaline Phosphatase 133 H (38-126) U/L Total Protein 7.3 (6.3-8.2) g/dL Albumin 4.0 (3.5-5.1) g/dL TSH (Reflex) 3.790 (0.465-4.68) uIU/mL Urine Color (Yellow) Urine Appearance (Clear) Urine pH (5.0-9.0) Ur Specific [place] (1.001-1.035) Urine Protein (Negative) mg/dL Urine Glucose (UA) (Negative) mg/dL Urine Ketones (Negative) mg/dL Ur Blood (Man) (Negative) Urine Nitrate (Negative) Urine Bilirubin (Negative) Urine Urobilinogen (<2.0) mg/dL Leukocyte Esterase Rfl (Negative) SHAYLEE/UL Urine RBC (0-2) /hpf Urine WBC (0-3) /hpf Ur Squamous Epith Cells (Few) /hpf Urine Bacteria /hpf Urine Casts Urine Opiates Screen (Negative) Urine Methadone Screen (Negative) Ur Barbiturates Screen (Negative) Ur Phencyclidine Scrn (Negative) Ur Amphetamine Screen (Negative) U Benzodiazepines Scrn (Negative) Urine Cocaine Screen (Negative) U Cannabinoids Screen (Negative) 06/15/25 06/15/25 06/15/25 Range/Units 13:57 14:09 16:49 WBC (4.5-10.0) K/mm3 RBC (4.2-5.4) M/mm3 Hgb (12.0-15.0) g/dL Hct (37.0-47.0) % MCV (80-100) fl MCH (26-34) pg MCHC (32-36) g/dl RDW (11.5-14.5) % Plt Count (150-375) k/mm3 MPV (7.4-10.4) fl Immature Gran % (Auto) (0-0.5) % Neut % (Auto) (45.5-73.1) % Lymph % (Auto) (18.3-44.2) % [place] % (Auto) (2.6-8.5) % Eos % (Auto) (0-4.4) % Baso % (Auto) (0.2-1.2) % Lymph # (Auto) (0.9-3.2) K/mm3 [place] # (Auto) (0.1-0.6) K/mm3 Eos # (Auto) (0-0.3) K/mm3 Baso # (Auto) (0.0-0.1) K/mm3 Abs Immat Gran (auto) (0.00-0.031) K/mm3 Absolute Neuts (auto) (1.3-6.7) K/mm3 Absolute Nucleated RBC (0.0-0.012) K/mm3 Nucleated RBC % (0.0-0.2) % PT (11.1-14.7) Seconds INR APTT (22.3-36.8) Seconds Sodium (137-145) mmol/L Potassium (3.4-5.0) mmol/L Chloride (98-107) mmol/L Carbon Dioxide (22-30) mmol/L Anion Gap (4-12) mmol/L BUN (7-17) mg/dL Creatinine 1.30 H (0.7-1.0) mg/dL Estim Creat Clear Calc 31 ml/min Estimated GFR 40 L (59 - ) Glucose (65-110) mg/dL POC Capillary Glucose 177 H (65-105) mg/dl Calcium (8.4-10.2) mg/dL Total Bilirubin (0.2-1.3) mg/dL AST (14-36) U/L ALT (6-35) U/L Alkaline Phosphatase (38-126) U/L Total Protein (6.3-8.2) g/dL Albumin (3.5-5.1) g/dL TSH (Reflex) (0.465-4.68) uIU/mL Urine Color Yellow (Yellow) Urine Appearance Clear (Clear) Urine pH 6.0 (5.0-9.0) Ur Specific [place] > 1.045 H (1.001-1.035) Urine Protein 1+ H (Negative) mg/dL Urine Glucose (UA) Negative (Negative) mg/dL Urine Ketones Negative (Negative) mg/dL Ur Blood (Man) Negative (Negative) Urine Nitrate Negative (Negative) Urine Bilirubin Negative (Negative) Urine Urobilinogen 0.2 (<2.0) mg/dL Leukocyte Esterase Rfl Negative (Negative) SHAYLEE/UL Urine RBC 0-2 (0-2) /hpf Urine WBC 0-5 (0-3) /hpf Ur Squamous Epith Cells None seen (Few) /hpf Urine Bacteria None seen /hpf Urine Casts 0-2 Urine Opiates Screen Negative (Negative) Urine Methadone Screen Negative (Negative) Ur Barbiturates Screen Negative (Negative) Ur Phencyclidine Scrn Negative (Negative) Ur Amphetamine Screen Negative (Negative) U Benzodiazepines Scrn Negative (Negative) Urine Cocaine Screen Negative (Negative) U Cannabinoids Screen Negative (Negative) <Raulito Singh MD - Last Filed: 06/20/25 13:59> Imaging Data Attestation: I personally reviewed and interpreted this imaging study as follows: < Yaneli Kumar APRN - Last Filed: 06/15/25 19:02> Radiologist's impression: Impressions Head CT 06/15/25 14:30 IMPRESSION: Acute left posterior hemisphere infarct, may represent a distal branch CONFIGURATION MANAGEMENT ADMINISTRATOR infarct or venous infarct. Evidence of petechial hemorrhage. Small volume right subdural collection, decreased in size in the comparison study. May represent acute subacute subdural with hematocrit effect or CSF mixing, or acute on chronic small subdural hemorrhage. CT findings may suggest mild acute sphenoid sinusitis in the appropriate clinical context. Results reported telephonically to Yaneli Kumar APRN by Dr. Batista at 2:35 PM on 06/15/2025. Head/Neck CTA 06/15/25 14:40 IMPRESSION: Thin right subdural collection. Focal left occipital infarct. Loss of flow, possibly representing occlusion in the left P2 segment. Severe stenosis in the cavernous portion of the right internal carotid artery. Severe stenosis in the left M1 segment. Severe stenosis in the intradural right vertebral artery. Multiple thyroid nodules, consider nonemergent outpatient thyroid ultrasound for further characterization. Results reported telephonically to Yaneli Kmuar APRN by Dr. Batista at 2:59 PM on 06/15/2025. ADDENDUM: 06/15/25 1510 Cerebral vasospasm should be considered in the differential, as discussed at the time noted below. Chest X-Ray 06/15/25 15:17 IMPRESSION: No acute cardiopulmonary process. <Yaneli Kumar APRN - Last Filed: 06/15/25 19:02> Critical Care Time Critical Care Time Critical Care Time: Yes <Yaneli Kumar APRN - Last Filed: 06/15/25 19:02> Total Critical Care Time: 45 <Yaneli Kumar APRN - Last Filed: 06/15/25 19:02> Discharge Plan Discharge Clinical Impression: Subdural hematoma, Subarachnoid hemorrhage, Altered mental status <Yaneli Kumar APRN - Last Filed: 06/15/25 19:02> Patient Disposition: Acute Care Hospital <Yaneli Kumar APRN - Last Filed: 06/15/25 19:02> Condition: Guarded Prognosis <Yaneli Kumar APRN - Last Filed: 06/15/25 19:02> Patient Language: Armenian <Yaneli Kumar APRN - Last Filed: 06/15/25 19:02> Prescriptions: No Action levothyroxine 50 mcg tablet 75 mcg PO QAM montelukast 10 mg tablet 10 mg PO HS atorvastatin 80 mg tablet 80 mg PO DAILY biotin 5 mg capsule 5 mg PO DAILY Allergy Relief (cetirizine) 10 mg capsule 10 mg PO DAILY clopidogrel 75 mg tablet 75 mg PO DAILY Patient Comments: Restart January 27, 2025 cyanocobalamin (vitamin B-12) 1,000 mcg tablet 1,000 mcg PO DAILY diclofenac sodium [Arthritis Pain (diclofenac)] 1 % gel 2 g topical TID duloxetine 60 mg capsule,delayed release(DR/EC) 60 mg PO DAILY [id number] Capsule 1 cap PO DAILY bisacodyl 10 mg suppository 10 mg RECTAL DAILY PRN (Reason: constipation) docusate sodium 100 mg capsule 100 mg PO BID famotidine 10 mg tablet 10 mg PO DAILY asciminib 40 mg tablet 40 mg PO BID calcium carbonate-vitamin D3 500 mg-15 mcg (600 unit) tablet 1 tablet PO DAILY ramelteon 8 mg tablet 8 mg PO HS acetaminophen 500 mg capsule 1,000 mg PO Q6H Fiasp FlexTouch U-100 Insulin 100 unit/mL (3 mL) insulin pen 1 sliding scale dose SUBCUT .TIDAC Rx Instructions: 0-10 UNITS insulin aspart U-100 [Novolog FlexPen U-100 Insulin] 100 unit/mL (3 mL) insulin pen 1 sliding scale dose SUBCUT HS Rx Instructions: 0-5 UNITS amlodipine [Norvasc] 10 mg tablet 10 mg PO DAILY baclofen 5 mg tablet 5 mg PO TIDWMEAL carvedilol 12.5 mg tablet 12.5 mg PO BIDWMEAL Patient Comments: 1 tab Q AM, 2 tabs Q evening gabapentin 100 mg capsule 100 mg PO TID oxcarbazepine 600 mg tablet 600 mg PO BID ropinirole 0.5 mg tablet 0.5 mg PO QHS Entresto 24-26 mg tablet 1 tablet PO BID spironolactone [Aldactone] 25 mg tablet 25 mg PO DAILY vancomycin [Vancocin] 125 mg capsule 125 mg PO Q6H Patient Comments: X 10 days polyethylene glycol 3350 [Miralax] 17 gram Powder In Packet 17 g PO QAM PRN (Reason: constipation) ondansetron 4 mg Tablet,Disintegrating 4 mg PO Q6H PRN (Reason: Nausea And Vomiting) <Yaneli Kumar APRN - Last Filed: 06/15/25 19:02> Follow-up/Referrals: PHYSICIAN NOT ON STAFF,NONSTAFF [Primary Care Provider] - <Yaneli Kumar APRN - Last Filed: 06/15/25 19:02>
--- OUTSIDE RECORDS SUMMARY | 2025-06-15 14:14 | XMS_ITS | Clinical Summary ---
Author Organization [facility] Address [address] [place] [address] Care Team Providers Care Voice Systems Engineer Name Role Phone Tatum Rice Primary Care Provider Allergies Active Allergy Reactions Criticality Noted Date Comments Bupropion Headache,Other (See comments) Low 04/18/2012 Migraine headaches Codeine Nausea And Vomiting Low 04/18/2012 Body aches, Body aches Levetiracetam Hallucinations High 06/02/2025 Lisinopril Cough Low 06/27/2018 Mite Extract Other (See comments) Low 03/08/2013 Sinus problems. Sinus problems. Sinus problems. Acetaminophen-Codeine Nausea only Low 03/29/2020 Medications atorvastatin (LIPITOR) 80 mg tablet Take 1 tablet (80 mg total) by mouth daily [address] (CYMBALTA) 60 mg capsule Take 1 capsule (60 mg total) by mouth daily 022 Active clopidogreL (PLAVIX) 75 mg tablet Take 1 tablet (75 mg total) by mouth daily Active cyanocobalamin (Vitamin B-12) 1,000 mcg tablet Take 1 tablet (1,000 mcg total) by mouth daily Active xxdtvphubbb-esh-t agnesium-vitC capsule Take 1 capsule by mouth daily Active cetirizine 10 mg capsule Take 1 capsule by mouth daily Active calcium carbonate-vitamin D3 1,250 mg (500 mg elemental)-600 unit tablet Take 1 tablet by mouth daily Active biotin 5 mg tablet Take 1 tablet by mouth daily Active diclofenac sodium (VOLTAREN) 1 % gel Apply 2 g topically 3 (three) times a day Active bisacodyL (DULCOLAX) 10 mg suppository Insert 1 suppository (10 mg total) into the rectum daily as needed for constipation Active famotidine (PEPCID) 10 mg tablet Take 1 tablet (10 mg total) by mouth daily 2025 Active asciminib (SCEMBLIX) 40 mg tablet Take 2 tablets (80 mg total) by mouth daily Patient takes a total of 80mg in a day. One tablet of 40 mg in the morning and one tablet of 40mg in the evening. Active acetaminophen 500 mg capsule Take 2 capsules (1,000 mg total) by mouth every 6 (six) hours 2025 Active insulin aspart (NovoLOG) 100 unit/mL vial for injection Inject 0-5 Units under the skin nightly Active ramelteon (ROZEREM) 8 mg tablet Take 1 tablet (8 mg total) by mouth nightly 30 tablet 11 2025 Active montelukast (SINGULAIR) 10 mg tablet Take 1 tablet (10 mg total) by mouth nightly 2025 Active ondansetron ODT (ZOFRAN-ODT) 4 mg disintegrating tablet Take 1 tablet (4 mg total) by mouth every 6 (six) hours as needed for nausea or vomiting Active levothyroxine (SYNTHROID) 75 mcg tablet Take 1 tablet (75 mcg total) by mouth gun examiner before breakfast 90 tablet 11 Active gabapentin (NEURONTIN) 100 mg capsule Take 1 capsule (100 mg total) by mouth 3 (three) times a day 100 mg capsule by mouth three times a day. Active carvediloL (COREG) 12.5 mg tablet Take 1 tablet (12.5 mg total) by mouth 2 (two) times a day with meals 1 tab in the morning and 2 at night. Active amLODIPine (NORVASC) 10 mg tablet Take 1 tablet (10 mg total) by mouth daily Active docusate sodium (COLACE) 100 mg capsule Take 1 capsule (100 mg total) by mouth 2 (two) times a day as needed for constipation 025 2024 Active polyethylene glycol (MIRALAX) 17 gram/dose bulk powder Take 17 g by mouth daily as needed (constipation) 025 2024 Active rOPINIRole (REQUIP) 0.5 mg tablet Take 1 tablet (0.5 mg total) by mouth nightly Active OXcarbazepine (TRILEPTAL) 600 mg tablet Take 1 tablet (600 mg total) by mouth 2 (two) times a day 025 2024 Active baclofen (LIORESAL) 5 mg tablet Take 1 tablet (5 mg total) by mouth 3 (three) times a day with meals 025 2024 Active sacubitriL-valsar shah (ENTRESTO) 24-26 mg tabletIndications :chronic heart failure Take 1 tablet by mouth 2 (two) times a day 025 2024 Active spironolactone (ALDACTONE) 25 mg tablet Take 1 tablet (25 mg total) by mouth daily 025 2024 Active vancomycin (VANCOCIN) 125 mg capsuleIndication s:Clostridioides difficile infection Take 1 capsule (125 mg total) by mouth every 6 (six) hours for 10 days 40 capsule 025 2024 Active blood glucose diagnostic strip 1 each by Not Applicable route as directed 018 2024 Discontinued meclizine (ANTIVERT) 25 mg tablet Take 1 tablet (25 mg total) by mouth 2 (two) times a day as needed for dizziness 020 2024 Discontinued(S top Taking at Discharge) senna-docusate (PERICOLACE) 8.6-50 mg Take 1 tablet by mouth 2 (two) times a day 025 2024 Discontinued(S top Taking at Discharge) docusate sodium (COLACE) 100 mg capsuleIndication s:constipation,St ool Softener Take 1 capsule (100 mg total) by mouth 2 (two) times a day 025 2024 Discontinued insulin aspart (NovoLOG) 100 unit/mL vial for injectionIndicati ons:Diabetes Mellitus Inject 0-10 Units under the skin 3 (three) times a day before meals 025 2024 Discontinued(S top Taking at Discharge) levETIRAcetam (KEPPRA) 500 mg tablet Take 2 tablets (1,000 mg total) by mouth 2 (two) times a day 120 tablet 11 025 2024 Discontinued(S top Taking at Discharge) insulin glargine 100 unit/mL (3 mL) pen for injection Inject 25 Units under the skin nightly 025 2024 Discontinued(S top Taking at Discharge) traMADoL (ULTRAM) 50 mg tablet Take 1 tablet (50 mg total) by mouth every 6 (six) hours as needed for pain 20 tablet 025 2024 Discontinued clonazePAM (KlonoPIN) 0.5 mg tablet Take 1 tablet (0.5 mg total) by mouth 2 (two) times a day 025 2024 Discontinued levETIRAcetam (KEPPRA) 500 mg tablet Take 1 tablet (500 mg total) by mouth 2 (two) times a day for 2 doses 2 tablet 025 2024 Discontinued(S top Taking at Discharge) OXcarbazepine (TRILEPTAL) 300 mg tablet Take 1 tablet (300 mg total) by mouth 2 (two) times a day for 2 days, THEN 2 tablets (600 mg total) 2 (two) times a day for 28 days. 116 tablet 025 2024 Discontinued(S top Taking at Discharge) polyethylene glycol (MIRALAX) 17 gram/dose bulk powder Take 17 g by mouth daily 2024 Discontinued traMADoL (ULTRAM) 50 mg tablet Take 1 tablet (50 mg total) by mouth nightly 3 tablet 025 2024 Discontinued clonazePAM (KlonoPIN) 0.5 mg tablet Take 1 tablet (0.5 mg total) by mouth 2 (two) times a day 6 tablet 025 2024 Discontinued metroNIDAZOLE (FLAGYL) 500 mg tablet Take 1 tablet (500 mg total) by mouth 3 (three) times a day for 7 days 21 tablet 025 2024 Discontinued(S top Taking at Discharge) linaCLOtide (LINZESS) 145 mcg capsule Take 1 capsule (145 mcg total) by mouth daily 025 2024 Discontinued traMADoL (ULTRAM) 50 mg tablet Take 1 tablet (50 mg total) by mouth nightly 3 tablet 025 2024 Discontinued(S top Taking at Discharge) clonazePAM (KlonoPIN) 0.5 mg tablet Take 1 tablet (0.5 mg total) by mouth 2 (two) times a day 6 tablet 2024 Discontinued(S top Taking at Discharge) amoxicillin-clavu lanate (AUGMENTIN) 875-125 mg per tablet Take 1 tablet (875 mg of amoxicillin total) by mouth 2 (two) times a day for 7 days 2024 Discontinued(S top Taking at Discharge) fidaxomicin (DIFICID) tabletIndications :Clostridioides difficile infection Take 1 tablet (200 mg total) by mouth every 12 (twelve) hours for 9 doses 9 tablet 2024 Discontinued(S top Taking at Discharge) linaCLOtide (LINZESS) 145 mcg capsule Take 1 capsule (145 mcg total) by mouth daily 30 capsule 025 2024 Discontinued(S top Taking at Discharge) Active Problems Problem Noted Date Diagnosed Date NSTEMI (non-ST elevated myocardial infarction) 0 06/02/2025 Hyperglycemia 06/02/2025 Left sided cerebral hemisphe re cerebrovascular accident (CVA) 06/02/2025 Seizure-like activity 06/01/2025 Elevated brain natriuretic peptide (BNP) level 0 05/28/2025 Stercoral colitis 05/27/2025 Constipation 05/27/2025 Elevated liver enzymes 05/27/2025 Sepsis without acute organ d ysfunction, due to unspecified organism 05/24/2025 Confusion 05/20/2025 Difficulty with speech 05/20/2025 Moderate protein-calorie malnutrition 05/15/2025 Benzodiazepine withdrawal with perceptual distur bance 05/14/2025 Altered mental status 05/14/2025 Disorientation 05/13/2025 Breakthrough seizure 04/13/2025 Seizure disorder, complex partial 04/13/2025 GLORIA (acute kidney injury) 03/01/2025 PAD (peripheral artery disease) 01/13/2025 Assessment & Plan (01/13/2025 10:52 AM GLOBAL LOGISTICS ANALYST): - 01/07 Patient underwent L COMMUNITY RELATIONS MANAGER/Stenting of the proximal PT, Dr. [facility] - On ASA, prescribed plavix postprocedurally - next procedure scheduled for 02/11 and carotid US scheduled. - 01/10 Plavix resumed SDH (subdural hematoma) 01/09/2025 Assessment & Plan (01/14/2025 11:58 AM GLOBAL LOGISTICS ANALYST): SDH with Left Midline shift 3mm - [...] 4 weeks with a repeat Head CT Depression 10/05/2022 Assessment & Plan (01/13/2025 10:58 AM GLOBAL LOGISTICS ANALYST): - Continue home cymbalta 60 mg daily Hypothyroidism 08/24/2022 Assessment & Plan (01/10/2025 10:16 AM GLOBAL LOGISTICS ANALYST): - Continue Levothyroxine 50mcg daily Osteopenia 06/01/2022 Seizures 03/08/2022 Assessment & Plan (01/13/2025 10:43 AM GLOBAL LOGISTICS ANALYST): Chronic Home Keppra 500 mg bid Iron [...] 10/13/2015 Assessment & Plan (01/14/2025 12:05 PM GLOBAL LOGISTICS ANALYST): Home med - Metoprolol 25 mg BID, carvedilol 12.5 BID, atorvastatin 80 mg daily - Continue Coreg 12.5mg BID Hyperlipidemia 10/13/2015 Assessment & Plan (01/10/2025 10:16 AM GLOBAL LOGISTICS ANALYST): - Continue Atorvastatin 80mg HS Anxiety disorder 02/11/2013 Assessment & Plan (01/13/2025 10:34 AM GLOBAL LOGISTICS ANALYST): - Continue Duloxetine 60mg daily 01/13 resume Clonazepam 0.5mg BID for anxiety Obstructive sleep apnea 02/11/2013 Type 2 diabetes mellitus without complications 0 02/11/2013 Chronic myeloid leukemia, BC R/ABL-positive, not having achieved remission 04/18/2012 Assessment & Plan (01/13/2025 10:57 AM GLOBAL LOGISTICS ANALYST): #CML - On asciminib Resolved Problems Problem Noted Date Diagnosed Date Resolved Date Fracture of right clavicle 01/10/2025 0 04/13/2025 Assessment & Plan (01/13/2025 10:41 AM GLOBAL LOGISTICS ANALYST): - b/l clavicle Xrays: shortening of left [...] follow up scheduled on 02/[address] Campso located at [facility] Acute traumatic pain 01/10/2025 025 Assessment & Plan (01/13/2025 10:30 AM GLOBAL LOGISTICS ANALYST): - Tylenol 650mg q6h - Gabapentin 300mg BID - Lidocaine patch - Robaxin 500mg TID - Oxycodone 5mg q4h PRN Syncope and collapse 05/23/2023 025 Knee pain, left 10/05/2022 04/13/2025 Left hand fracture, closed, initial encounter 05/30/2004/13/2025 Abrasion of left elbow 05/30/202204/13 Sprain of left knee 05/30/2022 04/13/20 25 Encounters Date Type Department Care Team Description 06/10/2025 8:48 PM CDT - 06/10/2025 11:59 PM CDT Hospital Encounter [facility] Discharge Disposition: Discharge to home or self care 06/06/2025 Results Follow-Up [facility] Gastroenterology at [address] [place] [address] Bobbi Pitt MD Hemochromatosis HFE Gene Analysis 06/03/2025 Telephone [facility] Gastroenter[facility] at [address] [place] [address] Sara Campos LPN 06/02/2025 Telephone [facility] Gastroenterology at [address] [place] [address] Fátima Ramírez 06/01/2025 2:36 PM CDT - 06/10/2025 8:44 PM CDT Hospital Encounter [facility] [address] [place] [address] Liat Potts MD Sargsyan, Narine, MD Fasick, Victoria Rose, DO Kim, Eileen H., MD Seizure-like activity (HCC) (Primary Dx); Pneumonia of both lower lobes due to infectious organism; Cerebrovascular accident (CVA), unspecified mechanism (HCC); Non-STEMI (non-ST elevated myocardial infarction) (HCC) Discharge Disposition: Discharge to an Rehab facility 06/01/2025 2:31 PM CDT - 06/01/2025 11:59 PM CDT Hospital Encounter [facility] Emergency, Room R Discharge Disposition: Discharge to home or self care 05/24/2025 4:26 PM CDT - 05/24/2025 11:59 PM CDT Hospital Encounter [facility] Emergency, Room R Discharge Disposition: Discharge to home or self care 05/24/2025 1:06 PM CDT - 05/31/2025 3:48 PM CD[place] [address] Doni Briceño MD Sargsyan, Narine, MD Fasick, Victoria Rose, Sepsis without acute organ dysfunction, due to unspecified organism (HCC) (Primary Dx); Moderate Alzheimer's dementia with agitation, unspecified timing of dementia onset (HCC); Apraxia, post-stroke; Acute proctitis; Stercoral colitis; Constipation, unspecified constipation type; Elevated liver enzymes; Normocytic anemia; High serum transferrin saturation Discharge Disposition: Discharge to SNF 05/19/2025 11:33 PM CDT - 05/21/2025 6:10 PM CDT Hospital Encounter [address] [address] Liat Potts MD Petters, Ekanga Sunday, MD Fasick, Victoria Rose, DO Confusion (Primary Dx); Expressive aphasia; Polypharmacy; Difficulty with speech [R47.9] Discharge Disposition: Discharge to SNF 05/19/2025 11:18 PM CDT - 05/19/2025 11:59 PM CDT Hospital Encounter [facility] Emergency, Room R Discharge Disposition: Discharge to home or self care 05/13/2025 3:29 PM CDT - 05/19/2025 2:36 PM CDT Hospital Encounter [facility] [address] [place] [address] Doni Briceño MD Huynh, Kiet T., MD Fasick, Victoria Rose, DO Benzodiazepine withdrawal with perceptual disturbance (HCC) (Primary Dx); Disorientation; Panic attack; TIA (transient ischemic attack); Delirium; Panic attack as reaction to stress; Subdural bleeding (HCC); Altered mental status, unspecified altered mental status type [R41.82]; Essential (primary) hypertension; Seizure disorder, complex partial (HCC) Discharge Disposition: Discharge to home, home health skilled care 05/13/2025 3:15 PM CDT - 05/13/2025 11:59 PM CDT Hospital Encounter [facility] Emergency, Room R Discharge Disposition: Discharge to home or self care 05/09/2025 3:58 PM CDT - 05/09/2025 6:51 PM CDT Emergency [facility] 1 [place] [address] Doni Briceño MD Vasovagal syncopes (Primary Dx); Anxiety about health; Injury of head, initial encounter Discharge Disposition: Discharge to home or self care 05/09/2025 3:26 PM CDT - 05/09/2025 11:59 PM CDT Hospital Encounter [facility] Emergency, Room R Discharge Disposition: Discharge to home or self care 05/04/2025 4:37 PM CDT - 05/04/2025 7:27 PM CDT Emergency [facility] 1 [place] [address] Neil Courtney MD Anxiety reaction (Primary Dx); Speech disturbance, unspecified type Discharge Disposition: Discharge to home or self care 05/04/2025 4:21 PM CDT - 05/04/2025 11:59 PM CDT Hospital Encounter [facility] Emergency, Room R Discharge Disposition: Discharge to home or self care 04/18/2025 1:45 PM CDT Office Visit [facility] Neurosurgery [address] Floor [address], [address] [place] [address] Bernardo Lorenz MD Subdural hematoma (HCC) (Primary Dx) 04/17/2025 [facility] Post Discharge Follow up phone call [facility] [address] [place] [address] Astrid Fox RN 04/12/2025 2:01 PM CDT - 04/13/2025 2:59 PM CDT Hospital Encounter [facility] [address] [place] [address] Liat Potts MD Fasick, Victoria Rose, DO Davis, Cedric Emden II, MD Breakthrough seizure (HCC) (Primary Dx); History of subdural hematoma; Seizure disorder, complex partial (HCC) [G40.209] Discharge Disposition: Discharge to home or self care 04/02/2025 12:30 PM CDT Office Visit [facility] Orthopaedic Surgery 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 REPAIRER RIGHT 01/09/2025 Right Medical History Medical History Date Comments Seizures (HCC) Hypertension Anxiety disorder 02/11/2013 Chronic myeloid leukemia, BCR/ABL-positive, not having achieved remission (HCC) 04/18/2012 Essential (primary) hypertension 10/13/2015 Hyperlipidemia 10/13/2015 Hyperplastic polyp of transverse colon 8 Overview: 02/13/2013 colon cancer screenin - 5 mm polyps both hyperplastic Hypothyroidism 08/24/2022 Iron deficiency anemia due t o chronic blood loss 01/16/2021 Major depressive disorder wi th single episode, in remission 02/02/2016 Multiple thyroid nodules 03/28/2019 Normocytic anemia 12/13/2018 Obstructive sleep apnea 02/11/2013 Osteopenia 06/01/2022 PAD (peripheral artery disease) 01/13/2025 Primary osteoarthritis of both knees 09/20/2017 SDH (subdural hematoma) ([facility]) 01/09/2025 Seasonal allergies 07/22/2020 Type 2 diabetes mellitus wit hout complications ([facility]) 02/11/2013 Vitamin B12 deficiency 03/28/2019 Stercoral colitis Left-sided cerebrovascular a ccident (CVA) ([facility]) Family History Medical History Relation Name Comments [...] drink = 0.6 oz pur e alcohol) [facility] Utilities Answer Date Recorded In the past 12 months has e electric, gas, oil, or water company threatened to shut off services in your home? No 06/02/2025 Social Connection and Isolat ion Panel [NHANES] Answer Date Recorded In a typical week, how many times do you talk on the phone with family, friends, or neighbors? More than three times a week 06/02/2025 How often do you get togethe r with friends or relatives? More than three times a week 06/02/2025 How often do you attend chur ch or oriental orthodox services? Never 06/02/2025 Do you belong to any clubs o r organizations such as scientologist groups, unions, fraternal or athletic groups, or school groups? No 06/02/2025 How often do you attend meet ings of the clubs or organizations you belong to? Never 06/02/2025 Are you , , di vorced, , never , or living with a partner? 06/02/2025 AUDIT-C Answer Date Recorded Q1: How often do you have a drink containing alcohol? Never 05/24/2025 Q2: How many drinks containi ng alcohol do you have on a typical day when you are drinking? Patient does not drink Q3: How often do you have si x or more drinks on one occasion? Never 05/24/2025 Overall Financial Resource Strain (CARDIA) Answe r Date Recorded How hard is it for you to pa y for the very basics like food, housing, medical care, and heating? Not hard at all 06/02/2025 PHQ-2 Answer Date Recorded PHQ-2 Total Score 3 01/22/2025 Hunger Vital Sign Answer Date Recorded Within the past 12 months, y ou worried that your food would run out before you got the money to buy more. Never true 06/02/20 25 Within the past 12 months, t he food you bought just didn't last and you didn't have money to get more. Never true 06/02/2025 PRAPARE - Transportation Answer Date Re corded In the past 12 months, has l ack of transportation kept you from medical appointments or from getting medications? No 05/14 In the past 12 months, has l ack of transportation kept you from meetings, work, or from getting things needed for daily living? No 06/02/2025 Housing Stability Vital Sign Answer Angelo e [...] place to sleep or slept in a detention (including now)? No 06/20/2023 PHQ-9 Answer Date Recorded PHQ-9 Total Score 10 01/22/2025 Housing Stability Vital Sign Answer Angelo e Recorded In the last 12 months, was t here a time when you were not able to pay the mortgage or rent on time? No 06/02/2025 In the past 12 months, how m any times have you moved where you were living? 0 06/02/2025 At any time in the past 12 [facility], were you homeless or living in a detention (including now)? No 06/02/2025 Personal Safety Answer Date Recorded Have you ever been in or are you currently in a harmful physical or emotional relationship or is someone making you feel afraid or unsafe? Patient unable to answer 06/01/2025 Education Answer Date Recorded What is the highest level of school you have completed or the highest degree you have received? Some college, no degree 05/24/2023 Comments No Sex and Gender Information Value Date Recorded Sex Assigned at Not on file Legal Sex Female 7:59 PM GLOBAL LOGISTICS ANALYST Gender Identity Not on file Sexual Orientation Not on file Obstetrics History Last Filed Vital Signs Vital Sign Reading Time Taken Comments Blood Pressure 127/55 06/10/2025 7:31 PM CDT Pulse 69 06/10/2025 7:31 PM CDT Temperature 36.4 C (97.5 F) 06/10/2025 7:31 PM CDT Respiratory Rate 12 06/10/2025 7:31 PM CDT Oxygen Saturation 93% 06/10/2025 7:31 PM CDT Inhaled Oxygen Concentration - - Weight 66.7 kg (147 lb 0.8 oz) 06/09/2025 6:09 A M CDT Height 167.6 cm (5' 6) 06/02/2025 11:22 PM CDT Body Mass Index 23.73 06/02/2025 11:22 PM CDT Plan of Treatment Health Maintenance Due Date Last Done Comments Albumin Creatinine Ratio, Urine 1955 Colon Cancer Screening-Colonoscopy 1955 Dilated Eye Exam 1955 Foot Exam 1955 Hepatitis B Screening 1973 Well Visit 65+ 2020 Osteoporosis Screening-Bone Density Scan 02/05/2023 02/05/2021, 02/05/2021 Breast Cancer Screening-Mammogram 02/10/2024 02/09/2023, 02/09/2023, 02/05/2021, Additional history exists Covid-19 Vaccine (6 - 2023-2 5 season) 2024 01/05/2022, 01/04/2022, 07/20/2021, Additional history exists Influenza Vaccine (#1) 2025 , 08/13/2023, 08/24/2022, Additional history exists Pneumococcal vaccine 65+ (4 of 4 - PCV20 or PCV21) 07/22/2025 07/22/2020, 12/12/2018, 11/13/2012 Hemoglobin A1C 10/13/2025 04/13/2025, 03/0 01/2025, 02/01/2021, Additional history exists Depression Screening 01/20/2026 01/20/2025, 01/21/20 25 Lipid Panel 01/20/2026 01/20/2025, 01/20/2025 Fall Risk Assessment 06/10/2026 06/10/2025 eGFR 06/10/2026 06/10/2025, 05/14, 06/08/2025, Additional history exists DTaP/Tdap/Td Vaccine (3 - Td or Tdap) 12/22/2033 12/22/2023, 04/30/2013, 04/30/2013 Zoster Vaccine Completed 02/12/2019, 12/13/2018 Hepatitis C Screening Completed 05/27/2025 Procedures Procedure Name Priority Date/Time Associated Diagnosis Comments POCT GLUCOSE DEVICE Routine 06/10/2025 4 :40 PM CDT POCT GLUCOSE DEVICE Routine 06/10/2025 11:41 AM CDT FL MODIFIED BARIUM SWALLOW W VIDEO IP Routine 06/10/2025 11:13 AM CDT POCT GLUCOSE DEVICE Routine 06/10/2025 8 :21 AM CDT EGFR Routine 06/10/2025 7:13 AM CDT DIFFERENTIAL AUTO Routine 06/10/2025 7:1 3 AM CDT PHOSPHORUS Routine 06/10/2025 7:13 AM CDT MAGNESIUM Routine 06/10/2025 7:13 AM CDT BASIC METABOLIC PANEL Routine 06/10/2025 7:13 AM CDT CBC WITH AUTO DIFFERENTIAL Routine 06/10/2025 7:13 AM CDT POCT GLUCOSE DEVICE Routine 06/10/2025 2 :18 AM CDT POCT GLUCOSE DEVICE Routine 06/09/2025 4 :59 PM CDT POCT GLUCOSE DEVICE Routine 06/09/2025 11:33 AM CDT POCT GLUCOSE DEVICE Routine 06/09/2025 7 :46 AM CDT EGFR Routine 06/09/2025 5:00 AM CDT DIFFERENTIAL AUTO Routine 06/09/2025 5:0 0 AM CDT PHOSPHORUS Routine 06/09/2025 5:00 AM CDT MAGNESIUM Routine 06/09/2025 5:00 AM CDT BASIC METABOLIC PANEL Routine 06/09/2025 5:00 AM CDT CBC WITH AUTO DIFFERENTIAL Routine 06/09/2025 5:00 AM CDT POCT GLUCOSE DEVICE Routine 06/09/2025 2 :20 AM CDT POCT GLUCOSE DEVICE Routine 06/08/2025 9 :25 PM CDT POCT GLUCOSE DEVICE Routine 06/08/2025 4 :52 PM CDT POCT GLUCOSE DEVICE Routine 06/08/2025 11:16 AM CDT POCT GLUCOSE DEVICE Routine 06/08/2025 7 :55 AM CDT EGFR Routine 06/08/2025 4:42 AM CDT DIFFERENTIAL AUTO Routine 06/08/2025 4:4 2 AM CDT PHOSPHORUS Routine 06/08/2025 4:42 AM CDT MAGNESIUM Routine 06/08/2025 4:42 AM CDT BASIC METABOLIC PANEL Routine 06/08/2025 4:42 AM CDT CBC WITH AUTO DIFFERENTIAL Routine 06/08/2025 4:42 AM CDT POCT GLUCOSE DEVICE Routine 06/08/2025 2 :14 AM CDT POCT GLUCOSE DEVICE Routine 06/07/2025 7 :44 PM CDT POCT GLUCOSE DEVICE Routine 06/07/2025 4 :46 PM CDT POCT GLUCOSE DEVICE Routine 06/07/2025 11:16 AM CDT POCT GLUCOSE DEVICE Routine 06/07/2025 7 :59 AM CDT POCT GLUCOSE DEVICE Routine 06/07/2025 2 :14 AM CDT POCT GLUCOSE DEVICE Routine 06/06/2025 9 :59 PM CDT POCT GLUCOSE DEVICE Routine 06/06/2025 5 :03 PM CDT POCT GLUCOSE DEVICE Routine 06/06/2025 11:29 AM CDT POCT GLUCOSE DEVICE Routine 06/06/2025 8 :13 AM CDT EGFR Routine 06/06/2025 3:54 AM CDT DIFFERENTIAL AUTO Routine 06/06/2025 3:5 4 AM CDT PHOSPHORUS Routine 06/06/2025 3:54 AM CDT MAGNESIUM Routine 06/06/2025 3:54 AM CDT BASIC METABOLIC PANEL Routine 06/06/2025 3:54 AM CDT CBC WITH AUTO DIFFERENTIAL Routine 06/06/2025 3:54 AM CDT POCT GLUCOSE DEVICE Routine 06/06/2025 2 :37 AM CDT POCT GLUCOSE DEVICE Routine 06/05/2025 9 :15 PM CDT POCT GLUCOSE DEVICE Routine 06/05/2025 4 :47 PM CDT POCT GLUCOSE DEVICE Routine 06/05/2025 12:23 PM CDT POCT GLUCOSE DEVICE Routine 06/05/2025 8 :10 AM CDT EGFR Routine 06/05/2025 7:32 AM CDT DIFFERENTIAL AUTO Routine 06/05/2025 7:3 2 AM CDT COMPREHENSIVE METABOLIC PANEL Routine 06/05/2025 7:32 AM CDT PHOSPHORUS Routine 06/05/2025 7:32 AM CDT MAGNESIUM Routine 06/05/2025 7:32 AM CDT CBC WITH AUTO DIFFERENTIAL Routine 06/05/2025 7:32 AM CDT POCT GLUCOSE DEVICE Routine 06/05/2025 2 :39 AM CDT POCT GLUCOSE DEVICE Routine 2025 9 :18 PM CDT POCT GLUCOSE DEVICE Routine 2025 4 :38 PM CDT POCT GLUCOSE DEVICE Routine 2025 11:48 AM CDT POCT GLUCOSE DEVICE Routine 2025 8 :03 AM CDT EGFR Routine 2025 7:00 AM CDT DIFFERENTIAL AUTO Routine 2025 7:0 0 AM CDT COMPREHENSIVE METABOLIC PANEL Routine 2025 7:00 AM CDT PHOSPHORUS Routine 2025 7:00 AM CDT MAGNESIUM Routine 2025 7:00 AM CDT CBC WITH AUTO DIFFERENTIAL Routine 2025 7:00 AM CDT C. DIFFICILE TESTING Routine 2025 5:40 AM CDT POCT GLUCOSE DEVICE Routine 2025 2 :12 AM CDT POCT GLUCOSE DEVICE Routine 06/03/2025 8 :29 PM CDT POCT GLUCOSE DEVICE Routine 06/03/2025 4 :44 PM CDT POCT GLUCOSE DEVICE Routine 06/03/2025 11:54 AM CDT POCT GLUCOSE DEVICE Routine 06/03/2025 8 :29 AM CDT MRI BRAIN WO CONTRAST IP Routine 06/03/2025 8:27 AM CDT EGFR Routine 06/03/2025 7:45 AM CDT DIFFERENTIAL AUTO Routine 06/03/2025 7:4 5 AM CDT PHOSPHORUS Routine 06/03/2025 7:45 AM CDT MAGNESIUM Routine 06/03/2025 7:45 AM CDT COMPREHENSIVE METABOLIC PANEL Routine 06/03/2025 7:45 AM CDT CBC WITH AUTO DIFFERENTIAL Routine 06/03/2025 7:45 AM CDT POCT GLUCOSE DEVICE Routine 06/03/2025 2 :19 AM CDT POCT GLUCOSE DEVICE Routine 06/02/2025 9 :41 PM CDT ECG 12-LEAD STAT 06/02/2025 9:32 PM CDT POCT GLUCOSE DEVICE Routine 06/02/2025 4 :34 PM CDT EEG Routine 06/02/2025 3:53 PM CDT MRSA ONLY (STAPHYLOCOCCUS AUREUS) PCR Routine 06/02/2025 1:22 PM CDT TRANSTHORACIC ECHO (TTE) LIMITED/FOLLOW UP WO DOPPLER/CF WO CONTRAST STAT 06/02/2025 12:40 PM CDT POCT GLUCOSE DEVICE Routine 06/02/2025 11:19 AM CDT EGFR Routine 06/02/2025 10:18 AM CDT PHOSPHORUS Routine 06/02/2025 10:18 AM CDT MAGNESIUM Routine 06/02/2025 10:18 AM CDT COMPREHENSIVE METABOLIC PANEL Routine 06/02/2025 10:18 AM CDT POCT GLUCOSE DEVICE Routine 06/02/2025 8 :09 AM CDT DIFFERENTIAL AUTO Timed 06/02/2025 7:2 2 AM CDT CBC WITH AUTO DIFFERENTIAL Timed 06/02/2025 7:22 AM CDT POCT GLUCOSE DEVICE Routine 06/02/2025 3 :23 AM CDT TROPONIN T HIGH-SENSITIVITY 6-HOUR Timed 06/01/2025 8:49 PM CDT POCT GLUCOSE DEVICE Routine 06/01/2025 8 :[address] CRITICAL CARE ILL/INJURED PATIENT INIT 30-74 MIN Routine 06/01/2025 6:44 PM CDT TROPONIN T HIGH-SENSITIVITY 4-HR Timed 06/01/2025 6:27 PM CDT SEPSIS LACTATE WITH REFLEX Timed 06/01/2025 5:42 PM CDT TROPONIN T HIGH-SENSITIVITY 2-HOUR Timed 06/01/2025 4:[address] CHEST ABDOMEN PELVIS WO CONTRAST ED 06/01/2025 4:25 PM CDT PRO B-TYPE NATRIURETIC PEPTIDE Add-On 06/01/2025 4:25 PM CDT URINALYSIS, MICROSCOPIC ONLY STAT 06/01/2025 3:17 PM CDT DRUGS OF ABUSE SCREEN, URINE WITHOUT CONFIRMATION STAT 06/01/2025 3:17 PM CDT URINALYSIS AND REFLEX TO MICROSCOPIC AND CULTURE STAT 06/01/2025 3:17 PM CDT BLOOD CULTURE STAT 06/01/2025 3:[address] STROKE PROTOCOL W WO CONTRAST ED 06/01/2025 3:02 PM CDT SEPSIS LACTATE WITH REFLEX STAT 06/01/2025 2:59 PM CDT BLOOD CULTURE STAT 06/01/2025 2:[address] STROKE PROTOCOL WO CONTRAST Critical/Life-T hreatening 06/01/2025 2:49 PM CDT EGFR STAT 06/01/2025 2:49 PM CDT DIFFERENTIAL AUTO STAT 06/01/2025 2:4 9 PM CDT APTT STAT 06/01/2025 2:49 PM CDT PROTIME-INR STAT 06/01/2025 2:49 PM CDT TROPONIN T HIGH-SENSITIVITY SERIES (BASELINE, 2HR, 4HR, 6HR) STAT 06/01/2025 2:49 PM CDT COMPREHENSIVE METABOLIC PANEL STAT 06/01/2025 2:49 PM CDT CBC WITH AUTO DIFFERENTIAL STAT 06/01/2025 2:49 PM CDT POCT GLUCOSE DEVICE Routine 06/01/2025 2 :38 PM CDT POCT GLUCOSE DEVICE Routine 05/31/2025 11:42 AM CDT EGFR Routine 05/31/2025 10:33 AM CDT DIFFERENTIAL AUTO Routine 05/31/2025 10:33 AM CDT PHOSPHORUS Routine 05/31/2025 10:33 AM CDT MAGNESIUM Routine 05/31/2025 10:33 AM CDT COMPREHENSIVE METABOLIC PANEL Routine 05/31/2025 10:33 AM CDT CBC WITH AUTO DIFFERENTIAL Routine 05/31/2025 10:33 AM CDT POCT GLUCOSE DEVICE Routine 05/31/2025 8 :02 AM CDT POCT GLUCOSE DEVICE Routine 05/31/2025 2 :26 AM CDT POCT GLUCOSE DEVICE Routine 05/30/2025 7 :50 PM CDT POCT GLUCOSE DEVICE Routine 05/30/2025 5 :57 PM CDT POCT GLUCOSE DEVICE Routine 05/30/2025 11:55 AM CDT POCT GLUCOSE DEVICE Routine 05/30/2025 8 :18 AM CDT EGFR Routine 05/30/2025 5:05 AM CDT DIFFERENTIAL AUTO Routine 05/30/2025 5:0 5 AM CDT PHOSPHORUS Routine 05/30/2025 5:05 AM CDT MAGNESIUM Routine 05/30/2025 5:05 AM CDT COMPREHENSIVE METABOLIC PANEL Routine 05/30/2025 5:05 AM CDT CBC WITH AUTO DIFFERENTIAL Routine 05/30/2025 5:05 AM CDT POCT GLUCOSE DEVICE Routine 05/30/2025 2 :40 AM CDT POCT GLUCOSE DEVICE Routine 05/29/2025 9 :38 PM CDT POCT GLUCOSE DEVICE Routine 05/29/2025 5 :09 PM CDT POCT GLUCOSE DEVICE Routine 05/29/2025 11:38 AM CDT EGFR Routine 05/29/2025 9:17 AM CDT DIFFERENTIAL AUTO Routine 05/29/2025 9:1 7 AM CDT HEMOCHROMATOSIS HFE GENE ANALYSIS Routine 05/29/2025 9:17 AM CDT PHOSPHORUS Routine 05/29/2025 9:17 AM CDT MAGNESIUM Routine 05/29/2025 9:17 AM CDT COMPREHENSIVE METABOLIC PANEL Routine 05/29/2025 9:17 AM CDT CBC WITH AUTO DIFFERENTIAL Routine 05/29/2025 9:17 AM CDT POCT GLUCOSE DEVICE Routine 05/29/2025 8 :07 AM CDT POCT GLUCOSE DEVICE Routine 05/29/2025 2 :11 AM CDT POCT GLUCOSE DEVICE Routine 05/28/2025 11:05 PM CDT POCT GLUCOSE DEVICE Routine 05/28/2025 4 :39 PM CDT POCT GLUCOSE DEVICE Routine 05/28/2025 11:59 AM CDT POCT GLUCOSE DEVICE Routine 05/28/2025 8 :34 AM CDT POCT GLUCOSE DEVICE Routine 05/28/2025 7 :54 AM CDT EGFR Routine 05/28/2025 4:27 AM CDT DIFFERENTIAL AUTO Routine 05/28/2025 4:2 7 AM CDT PHOSPHORUS Routine 05/28/2025 4:27 AM CDT MAGNESIUM Routine 05/28/2025 4:27 AM CDT COMPREHENSIVE METABOLIC PANEL Routine 05/28/2025 4:27 AM CDT CBC WITH AUTO DIFFERENTIAL Routine 05/28/2025 4:27 AM CDT POCT GLUCOSE DEVICE Routine 05/28/2025 2 :21 AM CDT POCT GLUCOSE DEVICE Routine 05/27/2025 9 :08 PM CDT HEMOGLOBIN AND HEMATOCRIT Timed 05/27/2025 8:35 PM CDT POCT GLUCOSE DEVICE Routine 05/27/2025 5 :09 PM CDT HEMOGLOBIN AND HEMATOCRIT Timed 05/27/2025 3:43 PM CDT POCT GLUCOSE DEVICE Routine 05/27/2025 12:02 PM CDT HEMOGLOBIN AND HEMATOCRIT Timed 05/27/2025 11:34 AM CDT XR ABDOMEN AP 1 VIEW IP Routine 05/27/2025 9:51 AM CDT POCT GLUCOSE DEVICE Routine 05/27/2025 8 :04 AM CDT TISSUE TRANSGLUTAMINASE, IGA Routine 05/27/2025 7:05 AM CDT EGFR Routine 05/27/2025 7:05 AM CDT DIFFERENTIAL AUTO Routine 05/27/2025 7:0 5 AM CDT FIBRO TEST-ACTI TEST Routine 05/27/2025 7:05 AM CDT CERULOPLASMIN Routine 05/27/2025 7:05 AM CDT [id number], TUMOR MARKER Routine 05/27/2025 7:05 AM CDT [id number] Routine 05/27/2025 7 :05 AM CDT SMOOTH MUSCLE ANTIBODY, QUALITATIVE Routine 05/27/2025 7:05 AM CDT MITOCHONDRIAL ANTIBODIES, QUALITATIVE Routine 05/27/2025 7:05 AM CDT ANOOP QUALITATIVE WITH REFLEX TO ANOOP QUANTITATIVE Routine 05/27/2025 7:05 AM CDT FOLATE Routine 05/27/2025 7:05 AM CDT CELIAC REFLEX PANEL Routine 05/27/2025 7 :05 AM CDT VITAMIN B12 Routine 05/27/2025 7:05 AM CDT IRON PROFILE W/ IBC Routine 05/27/2025 7 :05 AM CDT PHOSPHORUS Routine 05/27/2025 7:05 AM CDT MAGNESIUM Routine 05/27/2025 7:05 AM CDT COMPREHENSIVE METABOLIC PANEL Routine 05/27/2025 7:05 AM CDT CBC WITH AUTO DIFFERENTIAL Routine 05/27/2025 7:05 AM CDT CMV, IGG AND IGM ANTIBODIES Routine 05/27/2025 7:05 AM CDT WILLA-CHAVEZ VIRUS VCA ANTIBODY PANEL Routine 05/27/2025 7:05 AM CDT HEPATITIS PANEL, ACUTE Routine 7:05 AM CDT POCT GLUCOSE DEVICE Routine 05/27/2025 2 :11 AM CDT TRANSFUSE RED BLOOD CELLS Timed 05/26/2025 9:49 PM CDT POCT GLUCOSE DEVICE Routine 05/26/2025 9 :30 PM CDT VANCOMYCIN LEVEL TROUGH Timed 05/26/2025 7:51 PM CDT TRANSFUSE RED BLOOD CELLS Timed 05/26/2025 6:45 PM CDT PREPARE RBC Timed 05/26/2025 5:40 PM CDT HEMOGLOBIN AND HEMATOCRIT Timed 05/26/2025 4:43 PM CDT POCT GLUCOSE DEVICE Routine 05/26/2025 4 :24 PM CDT XR ABDOMEN AP 1 VIEW IP Routine 05/26/2025 3:03 PM CDT HEMOGLOBIN AND HEMATOCRIT Timed 05/26/2025 12:01 PM CDT POCT GLUCOSE DEVICE Routine 05/26/2025 11:34 AM CDT CROSSMATCH Timed 05/26/2025 11:19 AM CDT ANTIBODY SCREEN Timed 05/26/2025 11:19 AM CDT ABO/RH Timed 05/26/2025 11:19 AM CDT TYPE AND SCREEN Timed 05/26/2025 11:19 AM CDT POCT GLUCOSE DEVICE Routine 05/26/2025 8 :00 AM CDT EGFR Routine 05/26/2025 5:18 AM CDT DIFFERENTIAL AUTO Routine 05/26/2025 5:1 8 AM CDT PHOSPHORUS Routine 05/26/2025 5:18 AM CDT COMPREHENSIVE METABOLIC PANEL Routine 05/26/2025 5:18 AM CDT MAGNESIUM Routine 05/26/2025 5:18 AM CDT CBC WITH AUTO DIFFERENTIAL Routine 05/26/2025 5:18 AM CDT POCT GLUCOSE DEVICE Routine 05/26/2025 2 :59 AM CDT POCT GLUCOSE DEVICE Routine 05/25/2025 8 :07 PM CDT POCT GLUCOSE DEVICE Routine 05/25/2025 4 :52 PM CDT POCT GLUCOSE DEVICE Routine 05/25/2025 11:49 AM CDT POCT GLUCOSE DEVICE Routine 05/25/2025 8 :05 AM CDT THYROID FUNCTION CASCADE Add-On 05/25/2025 6:17 AM CDT SODIUM LEVEL Timed 05/25/2025 6:17 AM CDT POCT GLUCOSE DEVICE Routine 05/25/2025 2 :57 AM CDT OSMOLALITY, URINE Routine 05/25/2025 1:5 6 AM CDT SODIUM, URINE, RANDOM Routine 05/25/2025 1:56 AM CDT STREP PNEUMONIAE AG, URINE Routine 05/25/2025 1:56 AM CDT LEGIONELLA ANTIGEN, URINE Routine 05/25/2025 1:56 AM CDT EGFR Routine 05/25/2025 12:16 AM CDT DIFFERENTIAL AUTO Routine 05/25/2025 12:16 AM CDT CBC WITH AUTO DIFFERENTIAL Routine 05/25/2025 12:16 AM CDT MAGNESIUM Routine 05/25/2025 12:16 AM CDT COMPREHENSIVE METABOLIC PANEL Routine 05/25/2025 12:16 AM CDT SODIUM LEVEL Timed 05/25/2025 12:[address] CRITICAL CARE ILL/INJURED PATIENT INIT 30-74 MIN Routine 05/24/2025 11:47 PM CDT INFLUENZA A/B, RSV, AND COVID-19 PCR Routine 05/24/2025 10:30 PM CDT SODIUM LEVEL Timed 05/24/2025 8:55 PM CDT POCT GLUCOSE DEVICE Routine 05/24/2025 8 :53 PM CDT SEPSIS LACTATE WITH REFLEX Timed 05/24/2025 5:[address] CHEST ABDOMEN PELVIS W CONTRAST ED 05/24/2025 4:46 PM CDT URINALYSIS, MICROSCOPIC ONLY STAT 05/24/2025 4:18 PM CDT URINALYSIS AND REFLEX TO MICROSCOPIC STAT 05/24/2025 4:18 PM CDT BLOOD CULTURE STAT 05/24/2025 3:45 PM CDT BLOOD CULTURE STAT 05/24/2025 3:45 PM CDT XR CHEST 1 VIEW ED 05/24/2025 2:07 PM CDT EGFR STAT 05/24/2025 1:58 PM CDT CRP (ACUTE PHASE) STAT 05/24/2025 1:5 8 PM CDT MAGNESIUM Routine 05/24/2025 1:58 PM CDT APTT STAT 05/24/2025 1:58 PM CDT PROTIME-INR STAT 05/24/2025 1:58 PM CDT COMPREHENSIVE METABOLIC PANEL STAT 05/24/2025 1:58 PM CDT ANTIBODY SCREEN STAT 05/24/2025 1:47 PM CDT ABO/RH STAT 05/24/2025 1:47 PM CDT SEPSIS LACTATE WITH REFLEX STAT 05/24/2025 1:47 PM CDT TYPE AND SCREEN STAT 05/24/2025 1:[address] HEAD WO CONTRAST ED 05/24/2025 1 :16 PM CDT PROCALCITONIN Add-On 05/24/2025 1:09 PM CDT DIFFERENTIAL AUTO STAT 05/24/2025 1:0 9 PM CDT ERYTHROCYTE SEDIMENTATION RATE Add-On 05/24/2025 1:09 PM CDT CBC WITH AUTO DIFFERENTIAL STAT 05/24/2025 1:09 PM CDT POCT GLUCOSE DEVICE Routine 05/21/2025 4 :31 PM CDT POCT GLUCOSE DEVICE Routine 05/21/2025 11:11 AM CDT POCT GLUCOSE DEVICE Routine 05/21/2025 7 :30 AM CDT POCT GLUCOSE DEVICE Routine 05/21/2025 2 :07 AM CDT POCT GLUCOSE DEVICE Routine 05/20/2025 9 :39 PM CDT POCT GLUCOSE DEVICE Routine 05/20/2025 4 :36 PM CDT POCT GLUCOSE DEVICE Routine 05/20/2025 11:24 AM CDT MRI BRAIN WO CONTRAST ED 05/20/2025 10:42 AM CDT POCT GLUCOSE DEVICE Routine 05/20/2025 7 :55 AM CDT EGFR Routine 05/20/2025 5:52 AM CDT MAGNESIUM Routine 05/20/2025 5:52 AM CDT COMPREHENSIVE METABOLIC PANEL Routine 05/20/2025 5:52 AM CDT SEPSIS LACTATE WITH REFLEX Timed 05/20/2025 5:52 AM CDT TROPONIN T HIGH-SENSITIVITY 6-HOUR Timed 05/20/2025 5:52 AM CDT TROPONIN T HIGH-SENSITIVITY 2-HOUR Timed 05/20/2025 2:[address] CRITICAL CARE ILL/INJURED PATIENT INIT 30-74 MIN Routine 05/20/2025 1:49 AM CDT ECG 12-LEAD STAT 05/20/2025 12:46 AM CDT URINALYSIS AND REFLEX TO MICROSCOPIC AND CULTURE STAT 05/20/2025 12:[address] STROKE PROTOCOL W WO CONTRAST Critical/Life-T hreatening 05/20/2025 12:[address] STROKE PROTOCOL WO CONTRAST Critical/Life-T hreatening 05/19/2025 11:57 PM CDT EGFR STAT 05/19/2025 11:48 PM CDT DIFFERENTIAL AUTO STAT 05/19/2025 11:48 PM CDT SEPSIS LACTATE WITH REFLEX STAT 05/19/2025 11:48 PM CDT TROPONIN T HIGH-SENSITIVITY SERIES (BASELINE, 2HR, 4HR, 6HR) STAT 05/19/2025 11:48 PM CDT COMPREHENSIVE METABOLIC PANEL STAT 05/19/2025 11:48 PM CDT CBC WITH AUTO DIFFERENTIAL STAT 05/19/2025 11:48 PM CDT POCT GLUCOSE DEVICE Routine 05/19/2025 11:11 AM CDT POCT GLUCOSE DEVICE Routine 05/19/2025 7 :56 AM CDT EGFR Routine 05/19/2025 4:19 AM CDT DIFFERENTIAL AUTO Routine 05/19/2025 4:1 9 AM CDT PHOSPHORUS Routine 05/19/2025 4:19 AM CDT MAGNESIUM Routine 05/19/2025 4:19 AM CDT COMPREHENSIVE METABOLIC PANEL Routine 05/19/2025 4:19 AM CDT CBC WITH AUTO DIFFERENTIAL Routine 05/19/2025 4:19 AM CDT POCT GLUCOSE DEVICE Routine 05/19/2025 2 :33 AM CDT POCT GLUCOSE DEVICE Routine 05/18/2025 9 :44 PM CDT POCT GLUCOSE DEVICE Routine 05/18/2025 4 :31 PM CDT POCT GLUCOSE DEVICE Routine 05/18/2025 11:44 AM CDT POCT GLUCOSE DEVICE Routine 05/18/2025 7 :36 AM CDT EGFR Routine 05/18/2025 4:54 AM CDT DIFFERENTIAL AUTO Routine 05/18/2025 4:5 4 AM CDT BASIC METABOLIC PANEL Routine 05/18/2025 4:54 AM CDT CBC WITH AUTO DIFFERENTIAL Routine 05/18/2025 4:54 AM CDT POCT GLUCOSE DEVICE Routine 05/18/2025 2 :24 AM CDT POCT GLUCOSE DEVICE Routine 05/17/2025 8 :25 PM CDT POCT GLUCOSE DEVICE Routine 05/17/2025 4 :17 PM CDT POCT GLUCOSE DEVICE Routine 05/17/2025 11:20 AM CDT POCT GLUCOSE DEVICE Routine 05/17/2025 7 :54 AM CDT EGFR Routine 05/17/2025 5:55 AM CDT DIFFERENTIAL AUTO Routine 05/17/2025 5:5 5 AM CDT PHOSPHORUS Routine 05/17/2025 5:55 AM CDT MAGNESIUM Routine 05/17/2025 5:55 AM CDT COMPREHENSIVE METABOLIC PANEL Routine 05/17/2025 5:55 AM CDT CBC WITH AUTO DIFFERENTIAL Routine 05/17/2025 5:55 AM CDT POCT GLUCOSE DEVICE Routine 05/17/2025 1 :38 AM CDT POCT GLUCOSE DEVICE Routine 05/16/2025 8 :49 PM CDT POCT GLUCOSE DEVICE Routine 05/16/2025 4 :20 PM CDT EGFR Routine 05/16/2025 11:51 AM CDT DIFFERENTIAL AUTO Routine 05/16/2025 11:51 AM CDT PHOSPHORUS Routine 05/16/2025 11:51 AM CDT MAGNESIUM Routine 05/16/2025 11:51 AM CDT COMPREHENSIVE METABOLIC PANEL Routine 05/16/2025 11:51 AM CDT CBC WITH AUTO DIFFERENTIAL Routine 05/16/2025 11:51 AM CDT POCT GLUCOSE DEVICE Routine 05/16/2025 11:42 AM CDT POCT GLUCOSE DEVICE Routine 05/16/2025 7 :50 AM CDT POCT GLUCOSE DEVICE Routine 05/16/2025 2 :22 AM CDT POCT GLUCOSE DEVICE Routine 05/15/2025 10:32 PM CDT POCT GLUCOSE DEVICE Routine 05/15/2025 8 :27 PM CDT POCT GLUCOSE DEVICE Routine 05/15/2025 4 :49 PM CDT POCT GLUCOSE DEVICE Routine 05/15/2025 11:54 AM CDT POCT GLUCOSE DEVICE Routine 05/15/2025 7 :57 AM CDT EGFR Routine 05/15/2025 3:52 AM CDT DIFFERENTIAL AUTO Routine 05/15/2025 3:5 2 AM CDT PHOSPHORUS Routine 05/15/2025 3:52 AM CDT MAGNESIUM Routine 05/15/2025 3:52 AM CDT COMPREHENSIVE METABOLIC PANEL Routine 05/15/2025 3:52 AM CDT CBC WITH AUTO DIFFERENTIAL Routine 05/15/2025 3:52 AM CDT POCT GLUCOSE DEVICE Routine 05/15/2025 2 :07 AM CDT POCT GLUCOSE DEVICE Routine 05/14/2025 8 :28 PM CDT POCT GLUCOSE DEVICE Routine 05/14/2025 4 :42 PM CDT POCT GLUCOSE DEVICE Routine 05/14/2025 11:39 AM CDT POCT GLUCOSE DEVICE Routine 05/14/2025 8 :48 AM CDT MANUAL DIFFERENTIAL Routine 05/14/2025 4 :29 AM CDT EGFR Routine 05/14/2025 4:29 AM CDT COMPREHENSIVE METABOLIC PANEL Routine 05/14/2025 4:29 AM CDT CBC WITH AUTO DIFFERENTIAL Routine 05/14/2025 4:29 AM CDT TROPONIN T HIGH-SENSITIVITY 6-HOUR Timed 05/13/2025 9:[address] CRITICAL CARE ILL/INJURED PATIENT INIT 30-74 MIN Routine 05/13/2025 8:[address] STROKE PROTOCOL W WO CONTRAST ED 05/13/2025 8:10 PM CDT TROPONIN T HIGH-SENSITIVITY 4-HR Timed 05/13/2025 7:50 PM CDT ECG 12-LEAD Routine 05/13/2025 6:12 PM CDT TROPONIN T HIGH-SENSITIVITY 2-HOUR Timed 05/13/2025 5:56 PM CDT URINALYSIS, MICROSCOPIC ONLY STAT 05/13/2025 4:55 PM CDT URINE CULTURE STAT 05/13/2025 4:55 PM CDT URINALYSIS AND REFLEX TO MICROSCOPIC AND CULTURE STAT 05/13/2025 4:55 PM CDT BLOOD GAS, VENOUS STAT 05/13/2025 4:0 2 PM CDT TROPONIN T HIGH-SENSITIVITY SERIES (BASELINE, 2HR, 4HR, 6HR) STAT 05/13/2025 4:01 PM CDT APTT STAT 05/13/2025 4:01 PM CDT PROTIME-INR STAT 05/13/2025 4:01 PM CDT ECG 12-LEAD STAT 05/13/2025 3:[address] STROKE PROTOCOL WO CONTRAST Critical/Life-T hreatening 05/13/2025 3:43 PM CDT EGFR STAT 05/13/2025 3:35 PM CDT MANUAL DIFFERENTIAL STAT 05/13/2025 3 :35 PM CDT TROPONIN T HIGH-SENSITIVITY SERIES (BASELINE, 2HR, 4HR, 6HR) STAT 05/13/2025 3:35 PM CDT COMPREHENSIVE METABOLIC PANEL STAT 05/13/2025 3:35 PM CDT CBC WITH AUTO DIFFERENTIAL STAT 05/13/2025 3:35 PM CDT POCT GLUCOSE DEVICE Routine 05/13/2025 3 :[address] CRITICAL CARE ILL/INJURED PATIENT INIT 30-74 MIN Routine 05/09/2025 6:33 PM CDT XR CHEST 1 VIEW ED 05/09/2025 6:14 PM CDT TROPONIN T HIGH-SENSITIVITY 2-HOUR Timed 05/09/2025 6:08 PM CDT XR SHOULDER RIGHT 2 OR MORE VIEWS ED 05/09/2025 4:57 PM CDT XR KNEE RIGHT 3 VIEWS ED 05/09/2025 4:[address] CERVICAL SPINE WO CONTRAST ED 05/09/2025 4:23 PM CDT ECG 12-LEAD STAT 05/09/2025 4:[address] STROKE PROTOCOL WO CONTRAST Critical/Life-T hreatening 05/09/2025 4:15 PM CDT MANUAL DIFFERENTIAL STAT 05/09/2025 4 :06 PM CDT EGFR STAT 05/09/2025 4:06 PM CDT TROPONIN T HIGH-SENSITIVITY SERIES (BASELINE, 2HR, 4HR, 6HR) STAT 05/09/2025 4:06 PM CDT APTT STAT 05/09/2025 4:06 PM CDT PROTIME-INR STAT 05/09/2025 4:06 PM CDT COMPREHENSIVE METABOLIC PANEL STAT 05/09/2025 4:06 PM CDT CBC WITH AUTO DIFFERENTIAL STAT 05/09/2025 4:06 PM CDT POCT GLUCOSE DEVICE Routine 05/09/2025 4 :04 PM CDT URINALYSIS AND REFLEX TO MICROSCOPIC AND CULTURE STAT 05/04/2025 5:[address] STROKE PROTOCOL WO CONTRAST Critical/Life-T hreatening 05/04/2025 5:09 PM CDT ECG 12-LEAD STAT 05/04/2025 4:53 PM CDT EGFR STAT 05/04/2025 4:51 PM CDT DIFFERENTIAL AUTO STAT 05/04/2025 4:5 1 PM CDT PROTIME-INR STAT 05/04/2025 4:51 PM CDT COMPREHENSIVE METABOLIC PANEL STAT 05/04/2025 4:51 PM CDT CBC WITH AUTO DIFFERENTIAL STAT 05/04/2025 4:51 PM CDT POCT GLUCOSE DEVICE Routine 05/04/2025 4 :42 PM CDT POCT GLUCOSE DEVICE Routine 04/13/2025 11:32 AM CDT EGFR Timed 04/13/2025 7:44 AM CDT DIFFERENTIAL AUTO Timed 04/13/2025 7:4 4 AM CDT HEMOGLOBIN A1C Routine 04/13/2025 7:44 AM CDT LEVETIRACETAM LEVEL Add-On 04/13/2025 7 :44 AM CDT CBC WITH AUTO DIFFERENTIAL Timed 04/13/2025 7:44 AM CDT PHOSPHORUS Timed 04/13/2025 7:44 AM CDT MAGNESIUM Timed 04/13/2025 7:44 AM CDT COMPREHENSIVE METABOLIC PANEL Timed 04/13/2025 7:44 AM CDT POCT GLUCOSE DEVICE Routine 04/13/2025 7 :[address] CRITICAL CARE ILL/INJURED PATIENT INIT 30-74 MIN Routine 04/13/2025 5:26 AM CDT POCT GLUCOSE DEVICE Routine 04/13/2025 3 :[address] HEAD WO CONTRAST ED 04/12/2025 9 :04 PM CDT URINALYSIS AND REFLEX TO MICROSCOPIC AND CULTURE STAT 04/12/2025 6:[address] HEAD WO CONTRAST ED 04/12/2025 3 :15 PM CDT EGFR STAT 04/12/2025 3:12 PM CDT BASIC METABOLIC PANEL STAT 04/12/2025 3:12 PM CDT XR CHEST 1 VIEW ED 04/12/2025 2:40 PM CDT LEVETIRACETAM LEVEL Timed 04/12/2025 2 :26 PM CDT EGFR STAT 04/12/2025 2:09 PM CDT DIFFERENTIAL AUTO STAT 04/12/2025 2:0 9 PM CDT COMPREHENSIVE METABOLIC PANEL STAT 04/12/2025 2:09 PM CDT CBC WITH AUTO DIFFERENTIAL STAT 04/12/2025 2:09 PM CDT T4, FREE Add On 04/12/2025 2:08 PM CDT THYROID FUNCTION CASCADE Add-On 04/12/2025 2:08 PM CDT ECG 12-LEAD STAT 04/12/2025 2:07 PM CDT XR CLAVICLE BILATERAL COMPLETE Schedule Routine, Read Routine (OP Routine) 04/02/2025 12:23 PM CDT Closed displaced fracture of right clavicle, unspecified part of clavicle, initial encounter LIPID PANEL STAT 01/20/2025 12:28 PM CDT from Last 3 Months or Most Recently Relevant to Health Maintenance Results * POCT glucose (06/10/2025 4:40 PM CDT) Glucose, POC 137 70 - 199 mg/dL Blood 06/10/2025 4:40 PM CDT 06/10/2025 4:40 PM CDT Beverly Goff DO LAB POCT ORDERABLES - DE VICE Final Result [facility] Department [place] [address] * POCT glucose (06/10/2025 11:41 AM CDT) Glucose, POC 157 70 - 199 mg/dL Blood 06/10/2025 11:4 1 AM CDT 06/10/2025 11:41 AM CDT Beverly Goff DO LAB POCT ORDERABLES - DE VICE Final Result [facility] ([place] [place] [address] * FL Modified Barium Swallow W Video (06/10/2025 11:13 AM CDT) Anatomical Region Laterality Modality Head and Neck N/A Radio Fluoroscop y 06/10/2025 1:02 PM CDT Narrative 06/10/2025 1:04 PM CDT EXAM DESCRIPTION: FL MODIFIED BARIUM SWALLOW EVALUATION WITH SPEECH THERAPIST REASON FOR STUDY: DYSPHAGIA, OROPHARYNGEAL, HAS ATTRIBUTABLE CAUSE Dysphagia, oropharyngeal, has attributable cause FT 1.6 min Dose 7.6 RADIATION DOSE: Dose: 186.19 uGym2 Dose Area Product (DAP) TECHNIQUE: Fluoroscopic assistance provided to Speech Pathology Department who performed the exam. The patient was brought into the fluoro room and placed upright on a modified barium swallow chair. The patient was then given multiple consistencies mixed with barium to swallow under live fluoroscopic video guidance. COMPARISON: None. FINDINGS: There is no definite evidence of mariah aspiration. There was penetration identified with thin liquid consistency. IMPRESSION: 1. No definite evidence of mariah aspiration. 2. Penetration identified with thin liquid consistency. Please correlate with Speech Pathology report. THIS IS AN ELECTRONICALLY VERIFIED FINAL REPORT 06/10/2025 1:04 PM - Electronically signed by Jacob Montague D.O. PS: PS Report ID: [id number] Reading Location: [place] [address] Procedure Note Jacob Montague DO - 06/10/2025 EXAM DESCRIPTION: FL MODIFIED BARIUM SWALLOW EVALUATION WITH SPEECH THERAPIST REASON FOR STUDY: DYSPHAGIA, OROPHARYNGEAL, HAS ATTRIBUTABLE CAUSE Dysphagia, oropharyngeal, has attributable cause FT 1.6 min Dose 7.6 RADIATION DOSE: Dose: 186.19 uGym2 Dose Area Product (DAP) TECHNIQUE: Fluoroscopic assistance provided to Speech Pathology Departmentwho performed the exam. The patient was brought into the fluoro room and placed upright on amodified barium swallow chair. The patient was then given multiple consistenciesmixed with barium to swallow under live fluoroscopic video guidance. COMPARISON: None. FINDINGS: There is no definite evidence of mariah aspiration. There waspenetration identified with thin liquid consistency. IMPRESSION: 1. No definite evidence of mariah aspiration. 2. Penetration identified with thin liquid consistency. Please correlate with Speech Pathology report. THIS IS AN ELECTRONICALLY VERIFIED FINAL REPORT 06/10/2025 1:04 PM - Electronically signed by Jacob Montague D.O. PS: PS Report ID: [id number] Reading Location: [place] [address] Beverly Goff DO IMG FLUOROSCOPY PROCEDUR ES Final Result * POCT glucose (06/10/2025 8:21 AM CDT) Pathologist [facility] Glucose, POC 138 70 - 199 mg/dL Blood 06/10/2025 8:21 AM CDT 06/10/2025 8:21 AM CDT Beverly Goff DO LAB POCT ORDERABLES - DE VICE Final Result [facility] ([place] Department of Laboratories [place], [place] [id number] * eGFR (06/10/2025 7:13 AM CDT) Pathologist [facility] eGFR 83 >=60 mL/min/1. 73 m2 Comment: Interpretive Data [...] interpretive data was last reviewed 2021. Blood 06/10/2025 7:13 AM CDT 06/10/2025 7:30 AM CDT us Velia Crowe MD LAB BLOOD ORDERABLES Final Resu lt [facility] ([place] [place] [address] * (ABNORMAL) Differential, auto (06/10/2025 7:13 AM CDT) Neutrophil abs 4.49 1.50 - 6.50 K/cumm Imm gran abs 0.06 0.00 - 0.10 K/cumm [facility] ([place]) Lymphocyte abs 3.81(H) 0.80 - 3.30 K/cumm [facility] ([place]) Monocyte abs 0.72 0.20 - 0.80 K/cumm [facility] ([place]) Eosinophil abs 0.58(H) 0.00 - 0.50 K/cumm [facility] ([place]) Basophil abs 0.12(H) 0.00 - 0.10 K/cumm [facility] ([place]) Neutrophil pct 45.9 % [facility] ([place]) Comment: Interpretive Data Percent cell count reference ranges are not reported, since discordance with absolute values may lead to misinterpretation of CBC data. Current Interpretive Data was last revised on 2018. Imm gran pct 0.6 % [facility] ([place]) Comment: Interpretive Data Percent cell count reference ranges are not reported, since discordance with absolute values may lead to misinterpretation of CBC data. Current Interpretive Data was last revised on 2018. Lymphocyte pct 39.0 % [facility] ([place]) Comment: Interpretive Data Percent cell count reference ranges are not reported, since discordance with absolute values may lead to misinterpretation of CBC data. Current Interpretive Data was last revised on 2018. Monocyte pct 7.4 % [facility] ([place]) Comment: Interpretive Data Percent cell count reference ranges are not reported, since discordance with absolute values may lead to misinterpretation of CBC data. Current Interpretive Data was last revised on 2018. Eosinophil pct 5.9 % [facility] ([place]) Comment: Interpretive Data Percent cell count reference ranges are not reported, since discordance with absolute values may lead to misinterpretation of CBC data. Current Interpretive Data was last revised on 2018. Basophil pct 1.2 % [facility] ([place]) Comment: Interpretive Data Percent cell count reference ranges are not reported, since discordance with absolute values may lead to misinterpretation of CBC data. Current Interpretive Data was last revised on 2018. Blood 06/10/2025 7:13 AM CDT 06/10/2025 7:30 AM CDT us Velia Crowe MD LAB BLOOD ORDERABLES Final Resu lt DARINEL RICHTER ([place]) 1 [facility] [place] [address] * (ABNORMAL) CBC with auto differential (06/10/2025 7:13 AM CDT) WBC 9.78 3.80 - 9.90 K/cumm Hgb 12.0 11.9 - 15.5 g/dL [facility] ([place]) Hct 37.0 35.6 - 45.5 % [facility] ([place]) Plt 406(H) 150 - 400 K/cumm [facility] ([place]) MPV 10.2 9.1 - 12.3 fL [facility] ([place]) RBC 4.33 3.90 - 5.20 M/cumm [facility] ([place]) MCV 85.5 81.3 - 96.4 fL [facility] ([place] MCH 27.7 27.1 - 33.3 pg [facility] ([place]) MCHC 32.4 32.3 - 35.7 g/dL [facility] ([place]) RDW CV 14.5 11.1 - 14.9 % [facility] ([place]) RDW SD 44.5 35.7 - 48.1 fL [facility] ([place]) NRBC abs 0.00 0.00 - 0.01 K/cumm [facility] ([place] Blood 06/10/2025 7:13 AM CDT 06/10/2025 7:30 AM CDT Velia Crowe MD LAB BLOOD ORDERABLES Final Resu lt Performing Organization Address City/[facility]/ZIP Co de Phone Number DARINEL RICHTER ([place]) 1 [facility] [place] [address] * Phosphorus (06/10/2025 7:13 AM CDT) Phosphorus, pl 3.4 2.3 - 4.5 mg/dL [facility] ([place]) Blood 06/10/2025 7:13 AM CDT 06/10/2025 7:30 AM CDT Velia Crowe MD LAB BLOOD ORDERABLES Final Resu lt [facility] ([place]) 1 [facility] [place] [address] * Magnesium (06/10/2025 7:13 AM CDT) Magnesium 1.7 1.4 - 2.5 mg/dL [facility] ([place]) Blood 06/10/2025 7:13 AM CDT 06/10/2025 7:30 AM CDT Velia Crowe MD LAB BLOOD ORDERABLES Final Resu lt DARINEL RICHTER ([place]) 1 [facility] [place] [address] * Basic metabolic panel (06/10/2025 7:13 AM CDT) Sodium 135 135 - 145 mmol/L [facility] ([place]) Potassium, pl 4.8 3.3 - 4.9 mmol/L [facility] ([place]) Chloride 99 97 - 110 mmol/L [facility] ([place]) CO2 22 22 - 32 mmol/L [facility] ([place]) Anion gap 14 2 - 15 mmol/L [facility] ([place]) BUN 11 6 - 25 mg/dL [facility] ([place]) Creatinine 0.77 0.60 - 1.10 mg/dL [facility] ([place]) Glucose 181 70 - 199 mg/dL [facility] ([place]) Comment: Interpretive Data Fasting glucose [...] interpretive data was last revised 2022. Calcium 10.0 8.5 - 10.3 mg/dL [facility] ([place]) Blood 06/10/2025 7:13 AM CDT 06/10/2025 7:30 AM CDT Velia Crowe MD LAB BLOOD ORDERABLES Final Resu lt DARINEL MCDERMOTT) 1 [facility] Department [place] [email or web address] [place] [address] * POCT glucose (06/10/2025 2:18 AM CDT) Glucose, POC 151 70 - 199 mg/dL Blood 06/10/2025 2:18 AM CDT 06/10/2025 2:18 AM CDT us Velia Crowe MD LAB POCT ORDERABLES - DEVICE Fi nal Result Performing Organization Address [facility] Co de Phone Number [facility] ([place]) 1 [facility] [place] [email or web address] [place] [address] * POCT glucose (06/09/2025 4:59 PM CDT) Glucose, POC 187 70 - 199 mg/dL Blood 06/09/2025 4:59 PM CDT 06/09/2025 4:59 PM CDT us Velia Crowe MD LAB POCT ORDERABLES - DEVICE Fi nal Result Performing Organization Address [facility] de Phone Number [facility] ([place]) 1 [facility] [email or web address] [address] * POCT glucose (06/09/2025 11:33 AM CDT) Glucose, POC 191 70 - 199 mg/dL Blood 06/09/2025 11:3 3 AM CDT 06/09/2025 11:33 AM CDT us Velia Crowe MD LAB POCT ORDERABLES - DEVICE Fi nal Result Performing Organization Address [facility] Co de Phone Number [facility] ([place]) 1 [facility] [place] [email or web address] [address] * POCT glucose (06/09/2025 7:46 AM CDT) Glucose, POC 141 70 - 199 mg/dL Blood 06/09/2025 7:46 AM CDT 06/09/2025 7:46 AM CDT us Velia Crowe MD LAB POCT ORDERABLES - DEVICE Fi nal Result Performing Organization Address City/[facility]/ZIP Co de Phone Number DARINEL RICHTER ([place]) 1 [facility] [place] [email or web address] [address] * eGFR (06/09/2025 5:00 AM CDT) eGFR 83 >=60 mL/min/1. 73 m2 Comment: Interpretive Data [...] interpretive data was last reviewed 2021. Blood 06/09/2025 5:00 AM CDT 06/09/2025 5:55 AM CDT us Velia Crowe MD LAB BLOOD ORDERABLES Final Resu lt DARINEL RICHTER ([place]) 1 [facility] Department [place] [email or web address] [place] [address] * (ABNORMAL) Differential, auto (06/09/2025 5:00 AM CDT) Neutrophil abs 4.37 1.50 - 6.50 K/cumm Imm gran abs 0.04 0.00 - 0.10 K/cumm [facility] ([place]) Lymphocyte abs 3.97(H) 0.80 - 3.30 K/cumm [facility] ([place]) Monocyte abs 0.70 0.20 - 0.80 K/cumm [facility] ([place]) Eosinophil abs 0.46 0.00 - 0.50 K/cumm [facility] ([place]) Basophil abs 0.11(H) 0.00 - 0.10 K/cumm [facility] ([place]) Neutrophil pct 45.3 % [facility] ([place]) Comment: Interpretive Data Percent cell count reference ranges are not reported, since discordance with absolute values may lead to misinterpretation of CBC data. Current Interpretive Data was last revised on 2018. Imm gran pct 0.4 % [facility] ([place]) Comment: Interpretive Data Percent cell count reference ranges are not reported, since discordance with absolute values may lead to misinterpretation of CBC data. Current Interpretive Data was last revised on 2018. Lymphocyte pct 41.1 % [facility] ([place]) Comment: Interpretive Data Percent cell count reference ranges are not reported, since discordance with absolute values may lead to misinterpretation of CBC data. Current Interpretive Data was last revised on 2018. Monocyte pct 7.3 % [facility] ([place]) Comment: Interpretive Data Percent cell count reference ranges are not reported, since discordance with absolute values may lead to misinterpretation of CBC data. Current Interpretive Data was last revised on 2018. Eosinophil pct 4.8 % [facility] ([place]) Comment: Interpretive Data Percent cell count reference ranges are not reported, since discordance with absolute values may lead to misinterpretation of CBC data. Current Interpretive Data was last revised on 2018. Basophil pct 1.1 % [facility] ([place]) Comment: Interpretive Data Percent cell count reference ranges are not reported, since discordance with absolute values may lead to misinterpretation of CBC data. Current Interpretive Data was last revised on 2018. Blood 06/09/2025 5:00 AM CDT 06/09/2025 5:55 AM CDT us Velia Crowe MD LAB BLOOD ORDERABLES Final Resu lt DARINEL NEELAM ([place]) 1 [facility] [place] [address] * (ABNORMAL) CBC with auto differential (06/09/2025 5:00 AM CDT) WBC 9.65 3.80 - 9.90 K/cumm Hgb 11.5(L) 11.9 - 15.5 g/dL [facility] ([place]) Hct 35.6 35.6 - 45.5 % [facility] ([place]) Plt 295 150 - 400 K/cumm [facility] ([place]) MPV 10.7 9.1 - 12.3 fL [facility] ([place]) RBC 4.12 3.90 - 5.20 M/cumm [facility] ([place]) MCV 86.4 81.3 - 96.4 fL [facility] ([place]) MCH 27.9 27.1 - 33.3 pg [facility] ([place]) MCHC 32.3 32.3 - 35.7 g/dL [facility] ([place]) RDW CV 14.5 11.1 - 14.9 % [facility] ([place]) RDW SD 45.9 35.7 - 48.1 fL [facility] ([place]) NRBC abs 0.00 0.00 - 0.01 K/cumm [facility] ([place]) Blood 06/09/2025 5:00 AM CDT 06/09/2025 5:55 AM CDT us Velia Crowe MD LAB BLOOD ORDERABLES Final Resu lt [facility] ([place]) 1 [facility] Department [place] [address] * Phosphorus (06/09/2025 5:00 AM CDT) Phosphorus, pl 3.4 2.3 - 4.5 mg/dL [facility] ([place]) Blood 06/09/2025 5:00 AM CDT 06/09/2025 5:55 AM CDT Velia Crowe MD LAB BLOOD ORDERABLES Final Resu lt DARINEL RICHTER ([place]) 1 [facility] [place] [address] * Magnesium (06/09/2025 5:00 AM CDT) Magnesium 2.1 1.4 - 2.5 mg/dL [facility] ([place]) Blood 06/09/2025 5:00 AM CDT 06/09/2025 5:55 AM CDT Velia Crowe MD LAB BLOOD ORDERABLES Final Resu lt Performing Organization Address [facility]/ZIP Co de Phone Number DARINEL RICHTER ([place]) 1 [facility] Department [place] [email or web address] [place] [address] * (ABNORMAL) Basic metabolic panel (06/09/2025 5:00 AM CDT) Sodium 134(L) 135 - 145 mmol/L [facility] ([place]) Potassium, pl 3.6 3.3 - 4.9 mmol/L [facility] ([place]) Chloride 98 97 - 110 mmol/L [facility] ([place]) CO2 24 22 - 32 mmol/L [facility] ([place]) Anion gap 12 2 - 15 mmol/L [facility] ([place]) BUN 10 6 - 25 mg/dL [facility] ([place]) Creatinine 0.77 0.60 - 1.10 mg/dL [facility] ([place]) Glucose 166 70 - 199 mg/dL [facility] ([place]) Comment: Interpretive Data Fasting glucose [...] interpretive data was last revised 2022. Calcium 9.1 8.5 - 10.3 mg/dL D[facility] RICHTER ([place]) Blood 06/09/2025 5:00 AM CDT 06/09/2025 5:55 AM CDT Velia Crowe MD LAB BLOOD ORDERABLES Final Resu lt DARINEL RICHTER ([place]) 1 [facility] [email or web address] [address] * POCT glucose (06/09/2025 2:20 AM CDT) Glucose, POC 165 70 - 199 mg/dL Blood 06/09/2025 2:20 AM CDT 06/09/2025 2:20 AM CDT Velia Crowe MD LAB POCT ORDERABLES - DEVICE Fi nal Result Performing Organization Address [facility] Co de Phone Number DARINEL IRCHTER ([place]) 1 [facility] [place] [email or web address] [address] * (ABNORMAL) POCT glucose (06/08/2025 9:25 PM CDT) Glucose, POC 213(H) 70 - 199 mg/dL Blood 06/08/2025 9:25 PM CDT 06/08/2025 9:25 PM CDT Velia Crowe MD LAB POCT ORDERABLES - DEVICE Fi nal Result Performing Organization Address City/[facility]/ZIP Co de Phone Number DARINEL RICHTER ([place]) 1 [facility] [place] [email or web address] [address] * POCT glucose (06/08/2025 4:52 PM CDT) Glucose, POC 155 70 - 199 mg/dL Blood 06/08/2025 4:52 PM CDT 06/08/2025 4:52 PM CDT us Velia Crowe MD LAB POCT ORDERABLES - DEVICE Fi nal Result Performing Organization Address City/[facility]/ZIP Co de Phone Number DARINEL RICHTER ([place]) 1 [facility] [place] [email or web address] [address] * POCT glucose (06/08/2025 11:16 AM CDT) Glucose, POC 191 70 - 199 mg/dL Blood 06/08/2025 11:1 6 AM CDT 06/08/2025 11:16 AM CDT Velia Crowe MD LAB POCT ORDERABLES - DEVICE Fi nal Result Performing Organization Address [facility] Co de Phone Number DARINEL RICHTER ([place]) 1 [facility] [place] [email or web address] [address] * POCT glucose (06/08/2025 7:55 AM CDT) Glucose, POC 134 70 - 199 mg/dL Blood 06/08/2025 7:55 AM CDT 06/08/2025 7:55 AM CDT us Velia Crowe MD LAB POCT ORDERABLES - DEVICE Fi nal Result Performing Organization Address City/[facility] Co de Phone Number DARINEL RICHTER ([place]) 1 [facility] [place] [email or web address] [address] * eGFR (06/08/2025 4:42 AM CDT) eGFR 77 >=60 mL/min/1. 73 m2 Comment: Interpretive Data [...] interpretive data was last reviewed 2021. Blood 06/08/2025 4:42 AM CDT 06/08/2025 5:18 AM CDT us Velia Crowe MD LAB BLOOD ORDERABLES Final Resu lt DARINEL RICHTER ([place]) 1 [facility] Department [place] [address] * (ABNORMAL) Differential, auto (06/08/2025 4:42 AM CDT) Neutrophil abs 5.08 1.50 - 6.50 K/cumm Imm gran abs 0.05 0.00 - 0.10 K/cumm [facility] ([place]) Lymphocyte abs 3.90(H) 0.80 - 3.30 K/cumm [facility] ([place]) Monocyte abs 0.91(H) 0.20 - 0.80 K/cumm [facility] ([place]) Eosinophil abs 0.44 0.00 - 0.50 K/cumm [facility] ([place]) Basophil abs 0.11(H) 0.00 - 0.10 K/cumm [facility] ([place]) Neutrophil pct 48.4 % [facility] ([place]) Comment: Interpretive Data Percent cell count reference ranges are not reported, since discordance with absolute values may lead to misinterpretation of CBC data. Current Interpretive Data was last revised on 2018. Imm gran pct 0.5 % [facility] ([place]) Comment: Interpretive Data Percent cell count reference ranges are not reported, since discordance with absolute values may lead to misinterpretation of CBC data. Current Interpretive Data was last revised on 2018. Lymphocyte pct 37.2 % [facility] ([place]) Comment: Interpretive Data Percent cell count reference ranges are not reported, since discordance with absolute values may lead to misinterpretation of CBC data. Current Interpretive Data was last revised on 2018. Monocyte pct 8.7 % [facility] ([place]) Comment: Interpretive Data Percent cell count reference ranges are not reported, since discordance with absolute values may lead to misinterpretation of CBC data. Current Interpretive Data was last revised on 2018. Eosinophil pct 4.2 % [facility] ([place]) Comment: Interpretive Data Percent cell count reference ranges are not reported, since discordance with absolute values may lead to misinterpretation of CBC data. Current Interpretive Data was last revised on 2018. Basophil pct 1.0 % [facility] ([place]) Comment: Interpretive Data Percent cell count reference ranges are not reported, since discordance with absolute values may lead to misinterpretation of CBC data. Current Interpretive Data was last revised on 2018. Blood 06/08/2025 4:42 AM CDT 06/08/2025 5:17 AM CDT us Velia Crowe MD LAB BLOOD ORDERABLES Final Resu lt [facility] ([place]) 1 [facility] Department [place] [address] * (ABNORMAL) CBC with auto differential (06/08/2025 4:42 AM CDT) WBC 10.49(H) 3.80 - 9.90 K/cumm Hgb 11.6(L) 11.9 - 15.5 g/dL [facility] ([place]) Hct 35.1(L) 35.6 - 45.5 % [facility] ([place]) Plt 332 150 - 400 K/cumm [facility] ([place]) MPV 10.1 9.1 - 12.3 fL [facility] ([place]) RBC 4.20 3.90 - 5.20 M/cumm [facility] ([place]) MCV 83.6 81.3 - 96.4 fL [facility] ([place]) MCH 27.6 27.1 - 33.3 pg [facility] ([place]) MCHC 33.0 32.3 - 35.7 g/dL [facility] ([place]) RDW CV 14.7 11.1 - 14.9 % [facility] ([place]) RDW SD 44.5 35.7 - 48.1 fL [facility] ([place]) NRBC abs 0.00 0.00 - 0.01 K/cumm [facility] ([place]) Blood 06/08/2025 4:42 AM CDT 06/08/2025 5:17 AM CDT Velia Crowe MD LAB BLOOD ORDERABLES Final Resu lt DARINEL RICHTER ([place]) 1 [facility] [place] [address] * Phosphorus (06/08/2025 4:42 AM CDT) Phosphorus, pl 3.9 2.3 - 4.5 mg/dL [facility] ([place]) Blood 06/08/2025 4:42 AM CDT 06/08/2025 5:18 AM CDT Velia Crowe MD LAB BLOOD ORDERABLES Final Resu lt Performing Organization Address City/[facility]/ZIP Co de Phone Number DARINEL RICHTER ([place]) 1 [facility] [employer] [address] * Magnesium (06/08/2025 4:42 AM CDT) Magnesium 1.7 1.4 - 2.5 mg/dL [facility] ([place]) Blood 06/08/2025 4:42 AM CDT 06/08/2025 5:18 AM CDT Velia Crowe MD LAB BLOOD ORDERABLES Final Resu lt DARINEL RICHTER ([place]) [address] [place] [address] * (ABNORMAL) Basic metabolic panel (06/08/2025 4:42 AM CDT) Sodium 134(L) 135 - 145 mmol/L [facility] ([place]) Potassium, pl 3.5 3.3 - 4.9 mmol/L [facility] ([place]) Chloride 100 97 - 110 mmol/L [facility] ([place]) CO2 21(L) 22 - 32 mmol/L [facility] ([place]) Anion gap 13 2 - 15 mmol/L [facility] ([place]) BUN 9 6 - 25 mg/dL [facility] ([place]) Creatinine 0.82 0.60 - 1.10 mg/dL [facility] ([place]) Glucose 156 70 - 199 mg/dL [facility] ([place]) Comment: Interpretive Data Fasting glucose >/= 126 [...] 2022. Calcium 9.0 8.5 - 10.3 mg/dL [facility] ([place]) Blood 06/08/2025 4:42 AM CDT 06/08/2025 5:18 AM CDT us Velia Crowe MD LAB BLOOD ORDERABLES Final Resu lt DARINEL RICHTER ([place]) 1 [facility] Department [place] [address] * POCT glucose (06/08/2025 2:14 AM CDT) Glucose, POC 158 70 - 199 mg/dL Blood 06/08/2025 2:14 AM CDT 06/08/2025 2:14 AM CDT us Velia Crowe MD LAB POCT ORDERABLES - DEVICE Fi nal Result Performing Organization Address City/[facility] Co de Phone Number DARINEL RICHTER ([place]) 1 [facility] [place] [email or web address] [address] * (ABNORMAL) POCT glucose (06/07/2025 7:44 PM CDT) Glucose, POC 210(H) 70 - 199 mg/dL Blood 06/07/2025 7:44 PM CDT 06/07/2025 7:44 PM CDT us Velia Crowe MD LAB POCT ORDERABLES - DEVICE Fi nal Result Performing Organization Address [facility] de Phone Number DARINEL RICHTER ([place]) 1 [facility] [place] [email or web address] [address] * POCT glucose (06/07/2025 4:46 PM CDT) Glucose, POC 174 70 - 199 mg/dL Blood 06/07/2025 4:46 PM CDT 06/07/2025 4:46 PM CDT us Velia Crowe MD LAB POCT ORDERABLES - DEVICE Fi nal Result Performing Organization Address [facility] Co de Phone Number DARINEL RICHTER ([place]) 1 [facility] [place] [email or web address] [address] * POCT glucose (06/07/2025 11:16 AM CDT) Glucose, POC 165 70 - 199 mg/dL Blood 06/07/2025 11:1 6 AM CDT 06/07/2025 11:16 AM CDT us Velia Crowe MD LAB POCT ORDERABLES - DEVICE Fi nal Result DARINEL RICHTER ([place]) 1 [facility] [place] [email or web address] [address] * POCT glucose (06/07/2025 7:59 AM CDT) Glucose, POC 143 70 - 199 mg/dL Blood 06/07/2025 7:59 AM CDT 06/07/2025 7:59 AM CDT Velia Crowe MD LAB POCT ORDERABLES - DEVICE Fi nal Result Performing Organization Address City/[facility]/ZIP Co de Phone Number DARINEL RICHTER ([place]) 1 [facility] [place] [email or web address] [address] * POCT glucose (06/07/2025 2:14 AM CDT) Glucose, POC 144 70 - 199 mg/dL Blood 06/07/2025 2:14 AM CDT 06/07/2025 2:14 AM CDT Velia Crowe MD LAB POCT ORDERABLES - DEVICE Fi nal Result Performing Organization Address [facility] Co de Phone Number DARINEL RICHTER ([place]) 1 [facility] [place] [email or web address] [address] * POCT glucose (06/06/2025 9:59 PM CDT) Glucose, POC 146 70 - 199 mg/dL Blood 06/06/2025 9:59 PM CDT 06/06/2025 9:59 PM CDT Velia Crowe MD LAB POCT ORDERABLES - DEVICE Fi nal Result Performing Organization Address City/[facility]/ZIP Co de Phone Number DARINEL RICHTER ([place]) 1 [facility] [place] [email or web address] [address] * POCT glucose (06/06/2025 5:03 PM CDT) Glucose, POC 136 70 - 199 mg/dL Blood 06/06/2025 5:03 PM CDT 06/06/2025 5:03 PM CDT us Velia Crowe MD LAB POCT ORDERABLES - DEVICE Fi nal Result Performing Organization Address [facility] Co de Phone Number [facility] ([place]) 1 [facility] [email or web address] [address] * POCT glucose (06/06/2025 11:29 AM CDT) Glucose, POC 154 70 - 199 mg/dL Blood 06/06/2025 11:2 9 AM CDT 06/06/2025 11:29 AM CDT us Velia Crowe MD LAB POCT ORDERABLES - DEVICE Fi nal Result Performing Organization Address [facility] de Phone Number [facility] ([place]) 1 [facility] [place] [email or web address] [address] * POCT glucose (06/06/2025 8:13 AM CDT) Glucose, POC 157 70 - 199 mg/dL Blood 06/06/2025 8:13 AM CDT 06/06/2025 8:13 AM CDT us Velia Crowe MD LAB POCT ORDERABLES - DEVICE Fi nal Result Performing Organization Address [facility] de Phone Number [facility] ([place]) 1 [facility] [place] [email or web address] [address] * eGFR (06/06/2025 3:54 AM CDT) eGFR >90 >=60 mL/min/1. 73 m2 Comment: Interpretive Data [...] interpretive data was last reviewed 2021. Blood 06/06/2025 3:54 AM CDT 06/06/2025 4:40 AM CDT us Velia Crowe MD LAB BLOOD ORDERABLES Final Resu lt DARINEL [facility] ([place]) 1 [facility] [place] [address] * (ABNORMAL) Differential, auto (06/06/2025 3:54 AM CDT) Neutrophil abs 9.75(H) 1.50 - 6.50 K/cumm Imm gran abs 0.06 0.00 - 0.10 K/cumm [facility] ([place]) Lymphocyte abs 4.60(H) 0.80 - 3.30 K/cumm [facility] ([place]) Monocyte abs 0.74 0.20 - 0.80 K/cumm [facility] ([place]) Eosinophil abs 0.69(H) 0.00 - 0.50 K/cumm [facility] ([place]) Basophil abs 0.13(H) 0.00 - 0.10 K/cumm [facility] ([place]) Neutrophil pct 61.1 % [facility] ([place]) Comment: Interpretive Data Percent cell count reference ranges are not reported, since discordance with absolute values may lead to misinterpretation of CBC data. Current Interpretive Data was last revised on 2018. Imm gran pct 0.4 % [facility] ([place]) Comment: Interpretive Data Percent cell count reference ranges are not reported, since discordance with absolute values may lead to misinterpretation of CBC data. Current Interpretive Data was last revised on 2018. Lymphocyte pct 28.8 % [facility] ([place]) Comment: Interpretive Data Percent cell count reference ranges are not reported, since discordance with absolute values may lead to misinterpretation of CBC data. Current Interpretive Data was last revised on 2018. Monocyte pct 4.6 % [facility] ([place]) Comment: Interpretive Data Percent cell count reference ranges are not reported, since discordance with absolute values may lead to misinterpretation of CBC data. Current Interpretive Data was last revised on 2018. Eosinophil pct 4.3 % [facility] ([place]) Comment: Interpretive Data Percent cell count reference ranges are not reported, since discordance with absolute values may lead to misinterpretation of CBC data. Current Interpretive Data was last revised on 2018. Basophil pct 0.8 % [facility] ([place]) Comment: Interpretive Data Percent cell count reference ranges are not reported, since discordance with absolute values may lead to misinterpretation of CBC data. Current Interpretive Data was last revised on 2018. Blood 06/06/2025 3:54 AM CDT 06/06/2025 4:40 AM CDT us Velia Crowe MD LAB BLOOD ORDERABLES Final Resu lt DARINEL RICH[facility] ([place]) 1 [facility] [place] [address] * (ABNORMAL) CBC with auto differential (06/06/2025 3:54 AM CDT) WBC 15.97(H) 3.80 - 9.90 K/cumm Hgb 11.2(L) 11.9 - 15.5 g/dL [facility] ([place]) Hct 34.7(L) 35.6 - 45.5 % [facility] ([place]) Plt 282 150 - 400 K/cumm [facility] ([place]) MPV 11.0 9.1 - 12.3 fL [facility] ([place]) RBC 3.99 3.90 - 5.20 M/cumm [facility] ([place]) MCV 87.0 81.3 - 96.4 fL [facility] ([place]) MCH 28.1 27.1 - 33.3 pg [facility] ([place]) MCHC 32.3 32.3 - 35.7 g/dL [facility] ([place]) RDW CV 14.8 11.1 - 14.9 % [facility] ([place]) RDW SD 47.0 35.7 - 48.1 fL [facility] ([place]) NRBC abs 0.00 0.00 - 0.01 K/cumm [facility] ([place]) Blood 06/06/2025 3:54 AM CDT 06/06/2025 4:40 AM CDT Velia Crowe MD LAB BLOOD ORDERABLES Final Resu lt Performing Organization Address City/[facility]/ZIP Co de Phone Number [facility] ([place]) 1 [facility] [employer] [place] [email or web address] [place] [address] * Phosphorus (06/06/2025 3:54 AM CDT) Phosphorus, pl 2.9 2.3 - 4.5 mg/dL [facility] ([place]) Blood 06/06/2025 3:54 AM CDT 06/06/2025 4:40 AM CDT Velia Crowe MD LAB BLOOD ORDERABLES Final Resu lt DARINEL RICHTER ([place]) 1 [facility] [place] [address] * Magnesium (06/06/2025 3:54 AM CDT) Magnesium 1.9 1.4 - 2.5 mg/dL [facility] ([place]) Blood 06/06/2025 3:54 AM CDT 06/06/2025 4:40 AM CDT Velia Crowe MD LAB BLOOD ORDERABLES Final Resu lt DARINEL RICHTER ([place]) 1 [facility] [employer] [place] [email or web address] [place] [address] * (ABNORMAL) Basic metabolic panel (06/06/2025 3:54 AM CDT) Sodium 136 135 - 145 mmol/L [facility] ([place]) Potassium, pl 3.7 3.3 - 4.9 mmol/L [facility] ([place]) Chloride 105 97 - 110 mmol/L [facility] ([place]) CO2 18(L) 22 - 32 mmol/L [facility] ([place]) Anion gap 13 2 - 15 mmol/L [facility] ([place]) BUN 7 6 - 25 mg/dL [facility] ([place]) Creatinine 0.66 0.60 - 1.10 mg/dL [facility] ([place]) Glucose 162 70 - 199 mg/dL [facility] ([place]) Comment: Interpretive Data Fasting glucose >/= [...] interpretive data was last revised 2022. Calcium 8.6 8.5 - 10.3 mg/dL [facility] ([place]) Blood 06/06/2025 3:54 AM CDT 06/06/2025 4:40 AM CDT Velia Crowe MD LAB BLOOD ORDERABLES Final Resu lt DARINEL RICHTER ([place]) 1 [facility] Department [place] [address] * POCT glucose (06/06/2025 2:37 AM CDT) Glucose, POC 169 70 - 199 mg/dL Blood 06/06/2025 2:37 AM CDT 06/06/2025 2:37 AM CDT Velia Crowe MD LAB POCT ORDERABLES - DEVICE Fi nal Result Performing Organization Address City/[facility]/ZIP Co de Phone Number DARINEL RICHTER ([place]) 1 [facility] [email or web address] [address] * (ABNORMAL) POCT glucose (06/05/2025 9:15 PM CDT) Glucose, POC 216(H) 70 - 199 mg/dL Blood 06/05/2025 9:15 PM CDT 06/05/2025 9:15 PM CDT Velia Crowe MD LAB POCT ORDERABLES - DEVICE Fi nal Result Performing Organization Address [facility] Co de Phone Number [facility] ([place]) 1 [facility] [place] [email or web address] [address] * POCT glucose (06/05/2025 4:47 PM CDT) Glucose, POC 120 70 - 199 mg/dL Blood 06/05/2025 4:47 PM CDT 06/05/2025 4:47 PM CDT Velia Crowe MD LAB POCT ORDERABLES - DEVICE Fi nal Result Performing Organization Address City/[facility]/ZIP Co de Phone Number [facility] ([place]) 1 [facility] [place] [email or web address] [address] * POCT glucose (06/05/2025 12:23 PM CDT) Glucose, POC 167 70 - 199 mg/dL Blood 06/05/2025 12:2 3 PM CDT 06/05/2025 12:23 PM CDT us Velia Crowe MD LAB POCT ORDERABLES - DEVICE Fi nal Result DARINEL RICHTER ([place]) 1 [facility] [place] [email or web address] [address] * (ABNORMAL) POCT glucose (06/05/2025 8:10 AM CDT) Glucose, POC 205(H) 70 - 199 mg/dL Blood 06/05/2025 8:10 AM CDT 06/05/2025 8:10 AM CDT Velia Crowe MD LAB POCT ORDERABLES - DEVICE Fi nal Result Performing Organization Address [facility]/ZIP Co de Phone Number DARINEL RICHTER ([place]) 1 [facility] [email or web address] [address] * eGFR (06/05/2025 7:32 AM CDT) eGFR >90 >=60 mL/min/1. 73 m2 Comment: Interpretive Data [...] interpretive data was last reviewed 2021. Blood 06/05/2025 7:32 AM CDT 06/05/2025 7:35 AM CDT us Velia Crowe MD LAB BLOOD ORDERABLES Final Resu lt DARINEL RICHTER ([place]) 1 [facility] Department [place] [address] * (ABNORMAL) Differential, auto (06/05/2025 7:32 AM CDT) Neutrophil abs 13.82(H) 1.50 - 6.50 K/cumm Imm gran abs 0.09 0.00 - 0.10 K/cumm [facility] ([place]) Lymphocyte abs 3.45(H) 0.80 - 3.30 K/cumm [facility] ([place]) Monocyte abs 0.78 0.20 - 0.80 K/cumm [facility] ([place]) Eosinophil abs 0.49 0.00 - 0.50 K/cumm [facility] ([place]) Basophil abs 0.09 0.00 - 0.10 K/cumm [facility] ([place]) Neutrophil pct 73.8 % [facility] ([place]) Comment: Interpretive Data Percent cell count reference ranges are not reported, since discordance with absolute values may lead to misinterpretation of CBC data. Current Interpretive Data was last revised on 2018. Imm gran pct 0.5 % [facility] ([place]) Comment: Interpretive Data Percent cell count reference ranges are not reported, since discordance with absolute values may lead to misinterpretation of CBC data. Current Interpretive Data was last revised on 2018. Lymphocyte pct 18.4 % [facility] ([place]) Comment: Interpretive Data Percent cell count reference ranges are not reported, since discordance with absolute values may lead to misinterpretation of CBC data. Current Interpretive Data was last revised on 2018. Monocyte pct 4.2 % [facility] ([place]) Comment: Interpretive Data Percent cell count reference ranges are not reported, since discordance with absolute values may lead to misinterpretation of CBC data. Current Interpretive Data was last revised on 2018. Eosinophil pct 2.6 % [facility] ([place]) Comment: Interpretive Data Percent cell count reference ranges are not reported, since discordance with absolute values may lead to misinterpretation of CBC data. Current Interpretive Data was last revised on 2018. Basophil pct 0.5 % [facility] ([place]) Comment: Interpretive Data Percent cell count reference ranges are not reported, since discordance with absolute values may lead to misinterpretation of CBC data. Current Interpretive Data was last revised on 2018. Blood 06/05/2025 7:32 AM CDT 06/05/2025 7:35 AM CDT us Velia Crowe MD LAB BLOOD ORDERABLES Final Resu lt [facility] ([place]) 1 [facility] Department of Laboratories [place], [place] [id number] * (ABNORMAL) CBC with auto differential (06/05/2025 7:32 AM CDT) WBC 18.72(H) 3.80 - 9.90 K/cumm Hgb 11.2(L) 11.9 - 15.5 g/dL [facility] ([place]) Hct 33.9(L) 35.6 - 45.5 % [facility] ([place]) Plt 271 150 - 400 K/cumm [facility] ([place]) MPV 9.2 9.1 - 12.3 fL [facility] ([place]) RBC 4.03 3.90 - 5.20 M/cumm [facility] ([place]) MCV 84.1 81.3 - 96.4 fL [facility] ([place]) MCH 27.8 27.1 - 33.3 pg [facility] ([place]) MCHC 33.0 32.3 - 35.7 g/dL [facility] ([place]) RDW CV 14.8 11.1 - 14.9 % [facility] ([place]) RDW SD 45.1 35.7 - 48.1 fL [facility] ([place]) NRBC abs 0.00 0.00 - 0.01 K/cumm [facility] ([place]) Blood 06/05/2025 7:32 AM CDT 06/05/2025 7:35 AM CDT Velia Crowe MD LAB BLOOD ORDERABLES Final Resu lt Performing Organization Address [facility]/ZIP Co de Phone Number DARINEL RICHTER ([place]) 1 [facility] [email or web address] [address] * (ABNORMAL) Phosphorus (06/05/2025 7:32 AM CDT) Phosphorus, pl 2.0(L) 2.3 - 4.5 mg/dL D[facility] R[facility] ([place]) Blood 06/05/2025 7:32 AM CDT 06/05/2025 7:35 AM CDT Velia Crowe MD LAB BLOOD ORDERABLES Final Resu lt Performing Organization Address [facility] Co de Phone Number DARINEL RICHTER ([place]) 1 [facility] [email or web address] [address] * Magnesium (06/05/2025 7:32 AM CDT) Magnesium 1.5 1.4 - 2.5 mg/dL [facility] ([place]) Blood 06/05/2025 7:32 AM CDT 06/05/2025 7:35 AM CDT Velia Crowe MD LAB BLOOD ORDERABLES Final Resu lt Performing Organization Address [facility] Co de Phone Number DARINEL RICHTER ([place]) 1 [facility] [email or web address] [address] * (ABNORMAL) Comprehensive metabolic panel (06/05/2025 7:32 AM CDT) Sodium 139 135 - 145 mmol/L [facility] ([place]) Potassium, pl 2.6(C) 3.3 - 4.9 mmol/L [facility] ([place]) Comment:Critical Result call ed by [id number] at 2025-06-05 08:27:22. Result Read Back by Patricia Alvarez/mcu Chloride 103 97 - 110 mmol/L [facility] ([place]) CO2 23 22 - 32 mmol/L [facility] ([place]) Anion gap 13 2 - 15 mmol/L [facility] ([place]) BUN 9 6 - 25 mg/dL [facility] ([place]) Creatinine 0.68 0.60 - 1.10 mg/dL [facility] ([place]) Glucose 213(H) 70 - 199 mg/dL [facility] ([place]) [...] interpretive data was last revised 2022. Calcium 8.5 8.5 - 10.3 mg/dL [facility] ([place]) Bilirubin, total 0.2 0.1 - 1.2 mg/dL [facility] ([place]) Protein, pl 5.9(L) 6.5 - 8.5 g/dL [facility] ([place]) Albumin 3.1(L) 3.5 - 5.0 g/dL [facility] ([place]) Alk phos 125 40 - 130 Units/L [facility] ([place]) ALT 9 7 - 45 Units/L [facility] ([place]) AST 9(L) 10 - 45 Units/L [facility] ([place]) Blood 06/05/2025 7:32 AM CDT 06/05/2025 7:35 AM CDT us Velia Crowe MD LAB BLOOD ORDERABLES Final Resu lt [facility] ([place]) 1 [facility] Department [place] [address] * (ABNORMAL) POCT glucose (06/05/2025 2:39 AM CDT) Glucose, POC 234(H) 70 - 199 mg/dL Comment:Glu2: RN/MD Notified Blood 06/05/2025 2:39 AM CDT 06/05/2025 2:39 AM CDT Velia Crowe MD LAB POCT ORDERABLES - DEVICE Fi nal Result Performing Organization Address City/[facility]/ZIP Co de Phone Number DARINEL RICHTER ([place]) 1 [facility] [place] [email or web address] [address] * (ABNORMAL) POCT glucose (2025 9:18 PM CDT) Glucose, POC 213(H) 70 - 199 mg/dL Blood 2025 9:18 PM CDT 2025 9:18 PM CDT Velia Crowe MD LAB POCT ORDERABLES - DEVICE Fi nal Result Performing Organization Address City/[facility] Co de Phone Number [facility] ([place]) 1 [facility] [email or web address] [address] * (ABNORMAL) POCT glucose (2025 4:38 PM CDT) Glucose, POC 221(H) 70 - 199 mg/dL Blood 2025 4:38 PM CDT 2025 4:38 PM CDT Velia Crowe MD LAB POCT ORDERABLES - DEVICE Fi nal Result [facility] ([place]) 1 [facility] [place] [email or web address] [address] * (ABNORMAL) POCT glucose (2025 11:48 AM CDT) Glucose, POC 246(H) 70 - 199 mg/dL Blood 2025 11:4 8 AM CDT 2025 11:48 AM CDT us Velia Crowe MD LAB POCT ORDERABLES - DEVICE Fi nal Result DARINEL RICHTER [place]) 1 [facility] [place] [email or web address] [address] * POCT glucose (2025 8:03 AM CDT) Glucose, POC 196 70 - 199 mg/dL Blood 2025 8:03 AM CDT 2025 8:03 AM CDT us Velia Crowe MD LAB POCT ORDERABLES - DEVICE Fi nal Result Performing Organization Address [facility] de Phone Number DARINEL RICHTER [place]) 1 [facility] [place] [email or web address] [address] * eGFR (2025 7:00 AM CDT) eGFR 64 >=60 mL/min/1. 73 m2 Comment: Interpretive Data [...] interpretive data was last reviewed 2021. Blood 2025 7:00 AM CDT 2025 7:19 AM CDT us Velia Crowe MD LAB BLOOD ORDERABLES Final Resu lt D[facility]INEL RICHTER ([place]) 1 [facility] [place] [address] * (ABNORMAL) Differential, auto (2025 7:00 AM CDT) Neutrophil abs 29.11(H) 1.50 - 6.50 K/cumm Imm gran abs 0.42(H) 0.00 - 0.10 K/cumm [facility] ([place]) Lymphocyte abs 3.40(H) 0.80 - 3.30 K/cumm [facility] ([place]) Monocyte abs 1.47(H) 0.20 - 0.80 K/cumm [facility] ([place]) Eosinophil abs 0.17 0.00 - 0.50 K/cumm [facility] ([place]) Basophil abs 0.14(H) 0.00 - 0.10 K/cumm [facility] ([place]) Neutrophil pct 83.9 % [facility] ([place]) Comment: Interpretive Data Percent cell count reference ranges are not reported, since discordance with absolute values may lead to misinterpretation of CBC data. Current Interpretive Data was last revised on 2018. Imm gran pct 1.2 % [facility] ([place]) Comment: Interpretive Data Percent cell count reference ranges are not reported, since discordance with absolute values may lead to misinterpretation of CBC data. Current Interpretive Data was last revised on 2018. Lymphocyte pct 9.8 % [facility] ([place]) Comment: Interpretive Data Percent cell count reference ranges are not reported, since discordance with absolute values may lead to misinterpretation of CBC data. Current Interpretive Data was last revised on 2018. Monocyte pct 4.2 % [facility] ([place]) Comment: Interpretive Data Percent cell count reference ranges are not reported, since discordance with absolute values may lead to misinterpretation of CBC data. Current Interpretive Data was last revised on 2018. Eosinophil pct 0.5 % [facility] ([place]) Comment: Interpretive Data Percent cell count reference ranges are not reported, since discordance with absolute values may lead to misinterpretation of CBC data. Current Interpretive Data was last revised on 2018. Basophil pct 0.4 % [facility] ([place]) Comment: Interpretive Data Percent cell count reference ranges are not reported, since discordance with absolute values may lead to misinterpretation of CBC data. Current Interpretive Data was last revised on 2018. Blood 2025 7:00 AM CDT 2025 7:19 AM CDT us Velia Crowe MD LAB BLOOD ORDERABLES Final Resu lt [facility] ([place]) 1 [facility] Department [place] [address] * (ABNORMAL) CBC with auto differential (2025 7:00 AM CDT) WBC 34.71(H) 3.80 - 9.90 K/cumm Hgb 12.4 11.9 - 15.5 g/dL [facility] ([place]) Hct 37.5 35.6 - 45.5 % [facility] ([place]) Plt 390 150 - 400 K/cumm [facility] ([place]) MPV 9.5 9.1 - 12.3 fL [facility] ([place]) RBC 4.42 3.90 - 5.20 M/cumm [facility] ([place]) MCV 84.8 81.3 - 96.4 fL [facility] ([place]) MCH 28.1 27.1 - 33.3 pg [facility] ([place]) MCHC 33.1 32.3 - 35.7 g/dL [facility] ([place]) RDW CV 15.1(H) 11.1 - 14.9 % [facility] ([place]) RDW SD 45.9 35.7 - 48.1 fL [facility] ([place]) NRBC abs 0.00 0.00 - 0.01 K/cumm [facility] ([place]) Morphologic Screen Results confirmed by manual morphology review. [facility] ([place]) Blood 2025 7:00 AM CDT 2025 7:19 AM CDT Velia Crowe MD LAB BLOOD ORDERABLES Edited Res ult - Final D[facility]INEL RICHTER ([place]) 1 [facility] [email or web address] [address] * Phosphorus (2025 7:00 AM CDT) Phosphorus, pl 2.5 2.3 - 4.5 mg/dL [facility] ([place]) Blood 2025 7:00 AM CDT 2025 7:19 AM CDT Velia Crowe MD LAB BLOOD ORDERABLES Final Resu lt Performing Organization Address [facility] Co de Phone Number DARINEL RICHTER ([place]) 1 [facility] [place] [email or web address] [address] * Magnesium (2025 7:00 AM CDT) Pathologist [facility] Magnesium 1.8 1.4 - 2.5 mg/dL [facility] RICHTER ([place]) Blood 2025 7:00 AM CDT 2025 7:19 AM CDT Velia Crowe MD LAB BLOOD ORDERABLES Final Resu lt Performing Organization Address [facility]/ZIP Co de Phone Number DARINEL RICHTER ([place]) 1 [facility] [place] [email or web address] [address] * (ABNORMAL) Comprehensive metabolic panel (2025 7:00 AM CDT) Sodium 141 135 - 145 mmol/L [facility] ([place]) Potassium, pl 3.3 3.3 - 4.9 mmol/L [facility] ([place]) Chloride 108 97 - 110 mmol/L [facility] ([place]) CO2 18(L) 22 - 32 mmol/L [facility] ([place]) Anion gap 15 2 - 15 mmol/L [facility] ([place]) BUN 11 6 - 25 mg/dL [facility] ([place]) Creatinine 0.96 0.60 - 1.10 mg/dL [facility] ([place]) Glucose 175 70 - 199 mg/dL [facility] ([place]) [...] interpretive data was last revised 2022. Calcium 9.1 8.5 - 10.3 mg/dL [facility] ([place]) Bilirubin, total 0.3 0.1 - 1.2 mg/dL [facility] ([place]) Protein, pl 6.6 6.5 - 8.5 g/dL [facility] ([place]) Albumin 3.4(L) 3.5 - 5.0 g/dL [facility] ([place]) Alk phos 143(H) 40 - 130 Units/L [facility] ([place]) ALT 10 7 - 45 Units/L [facility] ([place]) AST 11 10 - 45 Units/L [facility] ([place]) Blood 2025 7:00 AM CDT 2025 7:19 AM CDT us Velia Crowe MD LAB BLOOD ORDERABLES Final Resu lt [facility] ([place]) 1 [facility] [place] [address] * (ABNORMAL) C. difficile testing Stool (2025 5:40 AM CDT) Pathologist [facility] Result Positive Negative Toxin Result Positive Negative [facility] ([place]) C. diff result Positive, free toxin(A) Negative, free toxin [facility] ([place]) C. diff interp Toxigenic Clostridioides (Clostridium) difficile detected. Analysis was performed using a two-step methodology using glutamate dehydrogenase antigen detection followed by detection of C. difficile toxin(s). [facility] ([place]) Stool 2025 5:40 AM CDT 2025 6:07 AM CDT Naif Sosa MD LAB MICROBIOLOGY - [facility] Final Result Performing Organization Address City/[facility]/ZIP Co de Phone Number [facility] ([place]) 1 [place] [address] * POCT glucose (2025 2:12 AM CDT) Glucose, POC 171 70 - 199 mg/dL Blood 2025 2:12 AM CDT 2025 2:12 AM CDT Velia Crowe MD LAB POCT ORDERABLES - DEVICE Fi nal Result Performing Organization Address [facility] Co de Phone Number [facility] ([place]) 1 [place] [address] * POCT glucose (06/03/2025 8:29 PM CDT) Glucose, POC 193 70 - 199 mg/dL Blood 06/03/2025 8:29 PM CDT 06/03/2025 8:29 PM CDT Velia Crowe MD LAB POCT ORDERABLES - DEVICE Fi nal Result Performing Organization Address City/[facility] Co de Phone Number [facility] ([place]) 1 [place] [address] * POCT glucose (06/03/2025 4:44 PM CDT) Glucose, POC 182 70 - 199 mg/dL Blood 06/03/2025 4:44 PM CDT 06/03/2025 4:44 PM CDT us Velia Crowe MD LAB POCT ORDERABLES - DEVICE Fi nal Result Performing Organization Address [facility] Co de Phone Number [facility] ([place]) 1 [facility] [place] [email or web address] [address] * POCT glucose (06/03/2025 11:54 AM CDT) Glucose, POC 166 70 - 199 mg/dL Blood 06/03/2025 11:5 4 AM CDT 06/03/2025 11:54 AM CDT us Velia Crowe MD LAB POCT ORDERABLES - DEVICE Fi nal Result Performing Organization Address [facility] Co de Phone Number [facility] ([place]) 1 [facility] [place] [email or web address] [address] * POCT glucose (06/03/2025 8:29 AM CDT) Glucose, POC 150 70 - 199 mg/dL Blood 06/03/2025 8:29 AM CDT 06/03/2025 8:29 AM CDT us Velia Crowe MD LAB POCT ORDERABLES - DEVICE Fi nal Result Performing Organization Address City/[facility] Co de Phone Number [facility] ([place]) 1 [facility] [email or web address] [address] * MRI Brain WO Contrast (06/03/2025 8:27 AM CDT) Anatomical Region Laterality Modality Head and Neck N/A Magnetic Resonan ce 06/03/2025 8:41 AM CDT Narrative 06/03/2025 9:02 AM CDT EXAM DESCRIPTION: MRI BRAIN WO CONTRAST REASON FOR STUDY: Stroke, follow up Stroke f/u, AMS. Right-sided weakness onset Monday morning, hx Alzheimer's, subdural hematoma from fall with ron hole evacuation 02/04, CML, CVA, encephalopathy TECHNIQUE: Multiplanar imaging includes non-contrasted T1, T2, FLAIR, and diffusion with ADC map sequences. Additional sequence(s) sensitive to blood products. Images stored on PACS. COMPARISON: 05/20/2025, 06/01/2025. FINDINGS: There is motion artifact on several sequences CEREBRUM: There is a relatively large area of diffusion restriction with associated significant FLAIR signal hyperintensity involving the cortex of the left parietal, left posterior temporal and left occipital lobes, as well as small areas of diffusion restriction at the left centrum semiovale and left aguilar radiata and left basal ganglia/subinsular region, compatible with acute infarct. There is local mass effect with sulcal effacement and minimal narrowing of the occipital horn of the left lateral ventricle. No herniation. There are chronic lacunar infarcts in the right aguilar radiata and left thalamus. Redemonstrated chronic microhemorrhage in the posterior left temporal lobe.. Chronic blood products redemonstrated in the posterior left thalamus WHITE MATTER: There is mild periventricular, juxtacortical and pontine T2/FLAIR hyperintense white matter disease, nonspecific, though likely secondary to chronic microvascular ischemia. POSTERIOR FOSSA: Brainstem and cerebellum appear unremarkable. EXTRAAXIAL SPACES: No gross change in the size of a right cerebral convexity subdural collection with areas of susceptibility artifact, compatible with blood products. Measuring up to 5 mm in thickness. Right sided ron hole is noted. BRAIN VOLUME: Within normal limits for age. PITUITARY: Unremarkable. VASCULATURE: Vessels not well assessed on the current protocol. See CT angiography from 06/01/2025 for more complete evaluation. ORBITS: No masses. Globes normal. PARANASAL SINUSES AND MASTOIDS: Well-aerated with no fluid levels. No mucosa thickening. OTHER: Degenerative disc disease in the upper cervical spine with posterior disc osteophyte complexes IMPRESSION: 1. Large acute infarct in the left cerebral hemisphere, as detailed above. There is local mass effect without herniation. 2. Unchanged right cerebral convexity subdural hematoma. I discussed these findings with Dr. Crowe at 9:01 a.m. on 06/03/2025. THIS IS AN ELECTRONICALLY VERIFIED FINAL REPORT 06/03/2025 9:02 AM - Electronically signed by Steven Montoya M.D. MZ: MZ Report ID: [id number] Reading Location: [place] [address] Procedure Note Steven Montoya MD - 06/03/2025 EXAM DESCRIPTION: MRI BRAIN WO CONTRAST REASON FOR STUDY: Stroke, follow up Stroke f/u, AMS. Right-sided weakness onset Monday, hxAlzheimer's, subdural hematoma from fall with ron hole evacuation 02/04, CML, CVA, encephalopathy TECHNIQUE: Multiplanar imaging includes non-contrasted T1, T2, FLAIR, and diffusion with ADC map sequences. Additional sequence(s) sensitive [employer] products. Images stored on PACS. COMPARISON: 05/20/2025, 06/01/2025. FINDINGS: There is motion artifact on several sequences CEREBRUM: There is a relatively large area of diffusion restriction with associated significant FLAIR signal hyperintensity involving the cortex ofthe left parietal, left posterior temporal and left occipital lobes, as wellas small areas of diffusion restriction at the left centrum semiovale andleft aguilar radiata and left basal ganglia/subinsular region, compatible withacute infarct. There is local mass effect with sulcal effacement and minimal narrowing of the occipital horn of the left lateral ventricle. Noherniation. There are chronic lacunar infarcts in the right aguilar radiata and left thalamus. Redemonstrated chronic microhemorrhage in the posterior left temporal lobe.. Chronic blood products redemonstrated in the posteriorleft thalamus WHITE MATTER: There is mild periventricular, juxtacortical andpontine T2/FLAIR hyperintense white matter disease, nonspecific, though likely secondary to chronic microvascular ischemia. POSTERIOR FOSSA: Brainstem and cerebellum appear unremarkable. EXTRAAXIAL SPACES: No gross change in the size of a right cerebralconvexity subdural collection with areas of susceptibility artifact, compatible with blood products. Measuring up to 5 mm in thickness. Right sided ron holeis noted. BRAIN VOLUME: Within normal limits for age. PITUITARY: Unremarkable. VASCULATURE: Vessels not well assessed on the current protocol. See CT angiography from 06/01/2025 for more complete evaluation. ORBITS: No masses. Globes normal. PARANASAL SINUSES AND MASTOIDS: Well-aerated with no fluid levels. Nomucosa thickening. OTHER: Degenerative disc disease in the upper cervical spine withposterior disc osteophyte complexes IMPRESSION: 1. Large acute infarct in the left cerebral hemisphere, as detailedabove. There is local mass effect without herniation. 2. Unchanged right cerebral convexity subdural hematoma. I discussed these findings with Dr. Crowe at 9:01 a.m. on 06/03/2025. THIS IS AN ELECTRONICALLY VERIFIED FINAL REPORT 06/03/2025 9:02 AM - Electronically signed by Steven Montoya M.D. MZ: RADHA Report ID: [id number] Reading Location: [place] [address] Damian Quesada APPLICATION INTERNSHIP IMG MRI PROCEDURES Final Re sult * eGFR (06/03/2025 7:45 AM CDT) eGFR 81 >=60 mL/min/1. 73 m2 Comment: Interpretive Data [...] interpretive data was last reviewed 2021. Blood 06/03/2025 7:45 AM CDT 06/03/2025 7:55 AM CDT us Beverly Goff DO LAB BLOOD ORDERABLES Fin al Result DARINEL RICHTER ([place]) 1 [facility] Department of Laboratories [place], [place] [id number] * (ABNORMAL) Differential, auto (06/03/2025 7:45 AM CDT) Neutrophil abs 11.97(H) 1.50 - 6.50 K/cumm Imm gran abs 0.08 0.00 - 0.10 K/cumm [facility] ([place]) Lymphocyte abs 3.92(H) 0.80 - 3.30 K/cumm [facility] ([place]) Monocyte abs 0.89(H) 0.20 - 0.80 K/cumm [facility] ([place]) Eosinophil abs 0.32 0.00 - 0.50 K/cumm [facility] ([place]) Basophil abs 0.07 0.00 - 0.10 K/cumm [facility] ([place]) Neutrophil pct 69.3 % [facility] ([place]) Comment: Interpretive Data Percent cell count reference ranges are not reported, since discordance with absolute values may lead to misinterpretation of CBC data. Current Interpretive Data was last revised on 2018. Imm gran pct 0.5 % [facility] ([place]) Comment: Interpretive Data Percent cell count reference ranges are not reported, since discordance with absolute values may lead to misinterpretation of CBC data. Current Interpretive Data was last revised on 2018. Lymphocyte pct 22.7 % [facility] ([place]) Comment: Interpretive Data Percent cell count reference ranges are not reported, since discordance with absolute values may lead to misinterpretation of CBC data. Current Interpretive Data was last revised on 2018. Monocyte pct 5.2 % [facility] ([place]) Comment: Interpretive Data Percent cell count reference ranges are not reported, since discordance with absolute values may lead to misinterpretation of CBC data. Current Interpretive Data was last revised on 2018. Eosinophil pct 1.9 % [facility] ([place]) Comment: Interpretive Data Percent cell count reference ranges are not reported, since discordance with absolute values may lead to misinterpretation of CBC data. Current Interpretive Data was last revised on 2018. Basophil pct 0.4 % [facility] ([place]) Comment: Interpretive Data Percent cell count reference ranges are not reported, since discordance with absolute values may lead to misinterpretation of CBC data. Current Interpretive Data was last revised on 2018. Blood 06/03/2025 7:45 AM CDT 06/03/2025 7:56 AM CDT Beverly Goff DO LAB BLOOD ORDERABLES Fin al Result [facility] ([place]) 1 [facility] Department [place] [address] * (ABNORMAL) CBC with auto differential (06/03/2025 7:45 AM CDT) WBC 17.25(H) 3.80 - 9.90 K/cumm Hgb 11.2(L) 11.9 - 15.5 g/dL [facility] ([place]) Hct 32.5(L) 35.6 - 45.5 % [facility] ([place]) Plt 384 150 - 400 K/cumm [facility] ([place]) MPV 9.3 9.1 - 12.3 fL [facility] ([place]) RBC 3.97 3.90 - 5.20 M/cumm [facility] ([place]) MCV 81.9 81.3 - 96.4 fL [facility] ([place]) MCH 28.2 27.1 - 33.3 pg [facility] ([place]) MCHC 34.5 32.3 - 35.7 g/dL [facility] ([place]) RDW CV 14.7 11.1 - 14.9 % [facility] ([place]) RDW SD 43.8 35.7 - 48.1 fL [facility] ([place]) NRBC abs 0.00 0.00 - 0.01 K/cumm [facility] ([place]) Blood 06/03/2025 7:45 AM CDT 06/03/2025 7:56 AM CDT Beverly Goff DO LAB BLOOD ORDERABLES Fin al Result DARINEL RICHTER ([place]) 1 [facility] [place] [email or web address] [address] * Phosphorus (06/03/2025 7:45 AM CDT) Phosphorus, pl 2.4 2.3 - 4.5 mg/dL [facility] ([place]) Blood 06/03/2025 7:45 AM CDT 06/03/2025 7:55 AM CDT Beverly Goff DO LAB BLOOD ORDERABLES Fin al Result Performing Organization Address [facility] Co de Phone Number DARINEL RICHTER ([place]) 1 [facility] [place] [email or web address] [address] * (ABNORMAL) Magnesium (06/03/2025 7:45 AM CDT) Magnesium 1.3(L) 1.4 - 2.5 mg/dL [facility] ([place]) Blood 06/03/2025 7:45 AM CDT 06/03/2025 7:55 AM CDT Beverly Goff DO LAB BLOOD ORDERABLES Fin al Result Performing Organization Address City/[facility]/ZIP Co de Phone Number DARINEL RICHTER ([place]) 1 [facility] [place] [email or web address] [place] [address] * (ABNORMAL) Comprehensive metabolic panel (06/03/2025 7:45 AM CDT) Sodium 138 135 - 145 mmol/L [facility] ([place]) Potassium, pl 2.7(C) 3.3 - 4.9 mmol/L [facility] ([place]) Comment:Critical Result call ed by [email or web address] at 2025-06-03 08:30:09. Result Read Back by Radha Centeno ([facility]) Chloride 107 97 - 110 mmol/L [facility] ([place]) CO2 17(L) 22 - 32 mmol/L [facility] ([place]) Anion gap 14 2 - 15 mmol/L [facility] ([place]) BUN 9 6 - 25 mg/dL [facility] ([place]) Creatinine 0.79 0.60 - 1.10 mg/dL [facility] ([place]) Glucose 160 70 - 199 mg/dL [facility] ([place]) [...] 2022. Calcium 9.0 8.5 - 10.3 mg/dL [facility] ([place]) Bilirubin, total 0.2 0.1 - 1.2 mg/dL [facility] ([place]) Protein, pl 6.3(L) 6.5 - 8.5 g/dL [facility] ([place]) Albumin 3.3(L) 3.5 - 5.0 g/dL [facility] ([place]) Alk phos 138(H) 40 - 130 Units/L [facility] ([place]) ALT 14 7 - 45 Units/L [facility] ([place]) AST 16 10 - 45 Units/L [facility] ([place]) Blood 06/03/2025 7:45 AM CDT 06/03/2025 7:55 AM CDT us Beverly Goff DO LAB BLOOD ORDERABLES Fin al Result [facility] ([place]) 1 [facility] Department [place] [address] * POCT glucose (06/03/2025 2:19 AM CDT) Glucose, POC 176 70 - 199 mg/dL Blood 06/03/2025 2:19 AM CDT 06/03/2025 2:19 AM CDT Beverly Goff DO LAB POCT ORDERABLES - DE VICE Final Result Performing Organization Address [facility] Co de Phone Number DARINEL RICHTER ([place]) 1 [facility] [place] [email or web address] [address] * POCT glucose (06/02/2025 9:41 PM CDT) Glucose, POC 196 70 - 199 mg/dL Blood 06/02/2025 9:41 PM CDT 06/02/2025 9:41 PM CDT Beverly Goff DO LAB POCT ORDERABLES - DE VICE Final Result Performing Organization Address [facility] Phone Number DARINEL RICHTER ([place]) 1 [facility] [place] [email or web address] [address] * ECG 12 lead (06/02/2025 9:32 PM CDT) 06/02/2025 9:32 PM CDT Narrative [facility] - 06/03/2025 7:43 AM CDT Vent Rate: 127 bpm RR Interval: [address] Interval: 158 msec QRS Duration: 82 msec QT Interval: 283 msec QTC Interval: 358 msec P-R-T [place]: 60 - 38 - 67 degrees IMPRESSION: Possible atrial flutter Compared to prior EKG, heart rate is now faster and atrial flutter has replaced sinus rhythm Electronically Signed By: Dr Javier Hartman Liat Potts MD ECG ORDERABLES Final Res ult Performing Organization Address [facility] Co de Phone Number [facility] [employer] [facility] [facility] * POCT glucose (06/02/2025 4:34 PM CDT) Glucose, POC 182 70 - 199 mg/dL Blood 06/02/2025 4:34 PM CDT 06/02/2025 4:34 PM CDT Beverly Goff DO LAB POCT ORDERABLES - DE VICE Final Result Performing Organization Address City/[facility] Co de Phone Number DARINEL RICHTER ([place]) 1 [facility] Department [place] [address] * EEG (06/02/2025 3:53 PM CDT) Anatomical Region Laterality Modality Other Narrative Procedure Note Viviana Lees MD - 06/02/2025 12:00 AM CDT REQUESTING PHYSICIAN Dr. Liat Potts. INDICATION FOR STUDY Ms. Ramirez is a 69-year-old with seizure-like activity. EEG was obtainedusing International 10/20 system of electrode placement. The backgroundactivity consisted of bilateral, synchronous, posterior dominant alpharange activity. The record shows spontaneous variability. Drowsiness wasidentified by ocular signs and attenuation of background. No focal,lateralized, or epileptiform abnormalities were noted. IMPRESSION This EEG reveals evidence of normal wakefulness and drowsiness. Clinicalcorrelation recommended. Job ID/Internal Job ID: [id number] Liat Potts MD NEUROLOGY ORDERABLES Aracelis l Result * MRSA Only (Staphylococcus aureus) PCR Nasal (06/02/2025 1:22 PM CDT) PCR Scrn, Methicillin resistant Staphylococcus aureus (MRSA) Not Detected Not Detected Comment: Interpretive Data Testing performed using Nucleic Acid Amplification with the [employer] Xpert MRSA NxG Assay. This assay detects target DNA from mecA, mecC and the SCCmec insertion site of Staphylococcus aureus using Real-Time PCR and has been cleared by the FDA. Performance characteristics have been verified by the [facility]. Current Interpretive Data was last revised on 2023 Nasal 06/02/2025 1:22 PM CDT 06/02/2025 1:30 PM CDT Beverly Goff DO LAB MICROBIOLOGY - GENER AL ORDERABLES Final Result DARINEL RICHTER ([place]) 1 [facility] Department [place] [address] * TRANSTHORACIC ECHO (TTE) LIMITED/FOLLOW UP WO DOPPLER/CF WO CONTRAST (06/02/2025 12:40 PM CDT) EF Mod BP 40 % CONS SCIMAGE Anatomical Region Laterality Modality Ultrasound 06/02/2025 12:4 6 PM CDT Narrative 06/02/2025 2:20 PM CDT [address] [address] Limited Echocardiogram Report Patient Name: NUPUR RAMIREZ : 1955 Study Date: 06/02/2025 12:46:32 PM Gender: F Tech: AA Location: [id number] Ref Provider: LIAT POTTS Height(Cm): BSA: Weight(Kg): Quality: Good PROCEDURES: Echocardiographic Report: Limited transthoracic echocardiogram with 2D and M-Mode. INDICATIONS: nstemi. MEASUREMENTS: 2D/MM Value Range EF Mod BP 40 % [ 54 - 74 ] 2D/MM Value Range - FINDINGS: Left Ventricle: Normal left ventricular size. Left ventricular wall thickness upper limits of normal. Mild global left ventricular systolic dysfunction. Ejection fraction is measured at 40 %. Pericardium: Normal pericardium with no significant pericardial effusion. CONCLUSIONS: Normal left ventricular size. Left ventricular wall thickness upper limits of normal. Mild global left ventricular systolic dysfunction. Ejection fraction is measured at 40 %. Inferior wall and basal inferior septum maybe akinetic, but the rest of the left ventricle also appears hypokinetic. Normal pericardium with no significant pericardial effusion. Electronically Signed By: Delores Birmingham MD 06/02/2025 2:19:29 PM CDT Procedure Note Delores Birmingham MD - 06/02/[address] [address] Limited Echocardiogram Report Patient Name: NUPUR RAMIREZ : 1955 Study Date: 06/02/2025 12:46:32 PM Gender: F Tech: AA Location: [id number] Ref Provider: LIAT POTTS Height(Cm): BSA: Weight(Kg): Quality: Good PROCEDURES: Echocardiographic Report: Limited transthoracic echocardiogram with 2D and M-Mode. INDICATIONS: nstemi. MEASUREMENTS: 2D/MM Value Range EF Mod BP 40 % [ 54 - 74 ] 2D/MM Value Range - FINDINGS: Left Ventricle: Normal left ventricular size. Left ventricular wall thickness upper limitsof normal. Mild global left ventricular systolic dysfunction. Ejection fraction ismeasured at 40 %. Pericardium: Normal pericardium with no significant pericardial effusion. CONCLUSIONS: Normal left ventricular size. Left ventricular wall thickness upper limitsof normal. Mild global left ventricular systolic dysfunction. Ejection fraction ismeasured at 40 %. Inferior wall and basal inferior septum maybe akinetic, but the rest ofthe left ventricle also appears hypokinetic. Normal pericardium with no significant pericardial effusion. Electronically Signed By: Delores Birmingham MD 06/02/2025 2:19:29 PM CDT Liat Potts MD CV ECHO PROCEDURES Final Result * POCT glucose (06/02/2025 11:19 AM CDT) Glucose, POC 165 70 - 199 mg/dL Blood 06/02/2025 11:1 9 AM CDT 06/02/2025 11:19 AM CDT Beverly Goff DO LAB POCT ORDERABLES - DE VICE Final Result DARINEL RICHTER ([place]) 1 [facility] [place] [address] * eGFR (06/02/2025 10:18 AM CDT) eGFR 73 >=60 mL/min/1. 73 m2 Comment: Interpretive Data [...] interpretive data was last reviewed 2021. Blood 06/02/2025 10:1 8 AM CDT 06/02/2025 11:45 AM CDT Beverly Goff DO LAB BLOOD ORDERABLES Fin al Result [facility] ([place]) 1 [facility] [place] [address] * Phosphorus (06/02/2025 10:18 AM CDT) Phosphorus, pl 3.4 2.3 - 4.5 mg/dL [facility] ([place]) Blood 06/02/2025 10:1 8 AM CDT 06/02/2025 11:45 AM CDT Beverly Alva [employer] DO LAB BLOOD ORDERABLES Fin al Result DARINEL RICHTER ([place]) 1 [facility] [place] [address] * Magnesium (06/02/2025 10:18 AM CDT) Pathologist [facility] Magnesium 1.6 1.4 - 2.5 mg/dL [facility] ([place]) Blood 06/02/2025 10:1 8 AM CDT 06/02/2025 11:45 AM CDT Beverly Nida [employer] DO LAB BLOOD ORDERABLES Fin al Result Performing Organization Address City/[facility]/ZIP Co de Phone Number [facility] ([place]) 1 [facility] [place] [address] * (ABNORMAL) Comprehensive metabolic panel (06/02/2025 10:18 AM CDT) Sodium 138 135 - 145 mmol/L [facility] ([place]) Potassium, pl 3.5 3.3 - 4.9 mmol/L [facility] ([place]) Chloride 104 97 - 110 mmol/L [facility] ([place]) CO2 19(L) 22 - 32 mmol/L [facility] ([place]) Anion gap 15 2 - 15 mmol/L [facility] ([place]) BUN 12 6 - 25 mg/dL [facility] ([place]) Creatinine 0.86 0.60 - 1.10 mg/dL [facility] ([place]) Glucose 164 70 - 199 mg/dL [facility] ([place]) Comment: Interpretive Data Fasting glucose [...] interpretive data was last revised 2022. Calcium 9.5 8.5 - 10.3 mg/dL [facility] ([place]) Bilirubin, total 0.2 0.1 - 1.2 mg/dL [facility] ([place]) Protein, pl 7.3 6.5 - 8.5 g/dL [facility] ([place]) Albumin 3.9 3.5 - 5.0 g/dL [facility] ([place]) Alk phos 152(H) 40 - 130 Units/L [facility] ([place]) ALT 18 7 - 45 Units/L [facility] ([place]) AST 19 10 - 45 Units/L [facility] ([place]) Blood 06/02/2025 10:1 8 AM CDT 06/02/2025 11:45 AM CDT Beverly Goff DO LAB BLOOD ORDERABLES Fin al Result DARINEL RICHTER ([place]) 1 [facility] [employer] [place] [email or web address] [address] * POCT glucose (06/02/2025 8:09 AM CDT) [facility] Signature Glucose, POC 182 70 - 199 mg/dL Blood 06/02/2025 8:09 AM CDT 06/02/2025 8:09 AM CDT Beverly Goff DO LAB POCT ORDERABLES - DE VICE Final Result [facility]EL [facility] ([place]) 1 [facility] Department [place] [address] * (ABNORMAL) Differential, auto (06/02/2025 7:22 AM CDT) Neutrophil abs 5.42 1.50 - 6.50 K/cumm Imm gran abs 0.13(H) 0.00 - 0.10 K/cumm [facility] ([place]) Lymphocyte abs 1.75 0.80 - 3.30 K/cumm [facility] ([place]) Monocyte abs 0.63 0.20 - 0.80 K/cumm [facility] ([place]) Eosinophil abs 0.03 0.00 - 0.50 K/cumm [facility] ([place]) Basophil abs 0.08 0.00 - 0.10 K/cumm [facility] ([place]) Neutrophil pct 67.4 % [facility] ([place]) Comment: Interpretive Data Percent cell count reference ranges are not reported, since discordance with absolute values may lead to misinterpretation of CBC data. Current Interpretive Data was last revised on 2018. Imm gran pct 1.6 % [facility] ([place]) Comment: Interpretive Data Percent cell count reference ranges are not reported, since discordance with absolute values may lead to misinterpretation of CBC data. Current Interpretive Data was last revised on 2018. Lymphocyte pct 21.8 % [facility] ([place]) Comment: Interpretive Data Percent cell count reference ranges are not reported, since discordance with absolute values may lead to misinterpretation of CBC data. Current Interpretive Data was last revised on 2018. Monocyte pct 7.8 % [facility] ([place]) Comment: Interpretive Data Percent cell count reference ranges are not reported, since discordance with absolute values may lead to misinterpretation of CBC data. Current Interpretive Data was last revised on 2018. Eosinophil pct 0.4 % [facility] ([place]) Comment: Interpretive Data Percent cell count reference ranges are not reported, since discordance with absolute values may lead to misinterpretation of CBC data. Current Interpretive Data was last revised on 2018. Basophil pct 1.0 % [facility] ([place]) Comment: Interpretive Data Percent cell count reference ranges are not reported, since discordance with absolute values may lead to misinterpretation of CBC data. Current Interpretive Data was last revised on 2018. Blood 06/02/2025 7:22 AM CDT 06/02/2025 7:31 AM CDT Beverly Goff DO LAB BLOOD ORDERABLES Fin al Result DARINEL RICHTER ([place]) 1 [facility] Department [place] [address] * (ABNORMAL) CBC with auto differential (06/02/2025 7:22 AM CDT) [facility] WBC 8.04 3.80 - 9.90 K/cumm Hgb 12.6 11.9 - 15.5 g/dL [facility] ([place]) Hct 39.5 35.6 - 45.5 % [facility] ([place]) Plt 333 150 - 400 K/cumm [facility] ([place]) MPV 9.1 9.1 - 12.3 fL [facility] ([place]) RBC 4.59 3.90 - 5.20 M/cumm [facility] ([place]) MCV 86.1 81.3 - 96.4 fL [facility] ([place]) MCH 27.5 27.1 - 33.3 pg [facility] ([place]) MCHC 31.9(L) 32.3 - 35.7 g/dL [facility] ([place]) RDW CV 15.0(H) 11.1 - 14.9 % [facility] ([place]) RDW SD 45.7 35.7 - 48.1 fL [facility] ([place]) NRBC abs 0.00 0.00 - 0.01 K/cumm [facility] ([place]) Blood 06/02/2025 7:22 AM CDT 06/02/2025 7:31 AM CDT Beverly Goff DO LAB BLOOD ORDERABLES Tyree niño Result DARINEL RICHTER ([place]) 1 [facility] [place] [address] * (ABNORMAL) POCT glucose (06/02/2025 3:23 AM CDT) [facility] Glucose, POC 241(H) 70 - 199 mg/dL Comment:Glu2: RN/ Notified Blood 06/02/2025 3:23 AM CDT 06/02/2025 3:23 AM CDT us Kiley Kwok MD LAB POCT ORDERABLES - DEVICE Final Result Performing Organization Address City/[facility]/ZIP Co de Phone Number DARINEL RICHTER ([place]) 1 [facility] of [email or web address] [place] [id number] * (ABNORMAL) Troponin T high-sensitivity 6-hour (06/01/2025 8:49 PM CDT) [facility] Trop T hs 308(C) <=14 ng/L [facility]EL R[facility] ([place]) Comment: Critical Result called by [email or web address] at 2025-06-01 21:59:03. Result Read Back by eve stone Interpretive Data For further hscTnT resources including the diagnostic algorithm and an aid in interpretation, copy and paste this link: https://nrl.testcatalog.org/show/hsTrop Current Interpretive Data last revised 2020. Trop T hs pct delta -47(C) % [facility] ([place]) Comment:Critical Result call ed by [id number] at 2025-06-01 21:59:16. Result Read Back by delphine stone Trop T hs interp Significa nt(C) [facility] ([place]) Comment:Critical Result call ed by [id number] at 2025-06-01 21:59:16. Result Read Back by delphine stone Blood 06/01/2025 8:49 PM CDT 06/01/2025 8:52 PM CDT us Liat Potts MD LAB BLOOD ORDERABLES Aracelis l Result D[facility]INEL RICHTER ([place]) 1 [facility] [place] [address] * POCT glucose (06/01/2025 8:46 PM CDT) Glucose, POC 186 70 - 199 mg/dL Blood 06/01/2025 8:46 PM CDT 06/01/2025 8:46 PM CDT us Kiley Kwok MD LAB POCT ORDERABLES - DEVICE Final Result D[facility]INEL RICHTER ([place]) 1 [facility] [place] [address] * CT CRITICAL CARE ILL/INJURED PATIENT INIT 30-74 MIN (06/01/2025 6:44 PM CDT) Narrative Liat Potts MD - 06/01/2025 6:44 PM CDT Liat Potts MD 06/01/2025 6:51 PM Critical Care Performed by: Liat Potts MD Authorized by: Liat Potts MD Critical care provider statement: As reflected in the history, physical exam, orders, notes, and/or MDM, I was personally present while the patient was critically ill and provided critical care services for 100 minutes, excluding time involved in separately billable procedures. Critical care was necessary to treat or prevent imminent or life-threatening deterioration of the following condition(s): acute cerebrovascular accident (CVA), seizure and severe neurologic condition severe cardiac condition Critical care was time spent by me providing the following: continuous telemetry, continuous pulse oximetry, continuous capnography and serial bedside patient exams frequent neurologic exams, decision regarding acute lytic therapy and initiation of stroke management initiation of rate controlling agent I provided emergent necessary critical care medicine [...] medical record. I admitted this patient to a continuous cardiac monitored bed. us Liat Potts MD IN CLINIC/BEDSIDE ORDERAB LES Final Result * (ABNORMAL) Troponin T high-sensitivity 4-hour (06/01/2025 6:27 PM CDT) Trop T hs 367(C) <=14 ng/L [facility] ([place]) Comment: Critical Result called by [id number] at 2025-06-01 18:59:20. Result Read Back by Tabby Gonzalez (ER) Interpretive Data For further hscTnT resources including the diagnostic algorithm and an aid in interpretation, copy and paste this link: https://nrl.testcatalog.org/show/hsTrop Current Interpretive Data last revised 2020. Trop T hs pct delta -37(C) % [facility] ([place]) Comment:Critical Result call ed by [id number] at 2025-06-01 18:59:20. Result Read Back by Tabby Gonzalez (ER) Trop T hs interp Significa nt(C) [facility] ([place]) Comment:Critical Result call ed by [id number] at 2025-06-01 18:59:20. Result Read Back by Tabby Gonzalez (ER) Blood 06/01/2025 6:27 PM CDT 06/01/2025 6:37 PM CDT Liat Potts MD LAB BLOOD ORDERABLES Aracelis l Result D[facility]INEL [facility] ([place]) 1 [facility] [employer] [email or web address] [address] * Sepsis Lactate w/ Reflex (06/01/2025 5:42 PM CDT) Pathologist [facility] Sepsis Lactate 1.8 0.7 - 2.0 mmol/L Blood 06/01/2025 5:42 PM CDT 06/01/2025 5:46 PM CDT Liat Potts MD LAB BLOOD ORDERABLES Aracelis l Result DARINEL RICHTER ([place]) 1 [facility] [place] [email or web address] [address] * (ABNORMAL) Troponin T high-sensitivity 2-hour (06/01/2025 4:29 PM CDT) Trop T hs 410(C) <=14 ng/L [facility] ([place]) Comment: Interpretive Data For further hscTnT resources including the diagnostic algorithm and an aid in interpretation, copy and paste this link: https://nrl.testcatalog.org/show/hsTrop Current Interpretive Data last revised 2020. Critical Result called by [id number] at 2025-06-01 17:07:25. Result Read Back by Anika Renteria (ER) Trop T hs pct delta -30(C) % [facility] ([place]) Comment:Critical Result call ed by [id number] at 2025-06-01 17:07:25. Result Read Back by Anika Renteria (ER) Trop T hs interp Significa nt(C) [facility] ([place]) Comment:Critical Result call ed by [id number] at 2025-06-01 17:07:25. Result Read Back by Anika Renteria (ER) Blood 06/01/2025 4:29 PM CDT 06/01/2025 4:31 PM CDT us Liat Potts MD LAB BLOOD ORDERABLES Aracelis l Result [facility]ARINEL NEELAM ([place]) 1 [facility] [place] [address] * CT Chest Abdomen Pelvis WO Contrast (06/01/2025 4:25 PM CDT) Anatomical Region Laterality Modality Body N/A Computed Tomogra phy 06/01/2025 4:47 PM CDT Narrative 06/01/2025 5:02 PM CDT EXAM DESCRIPTION: CT CHEST ABDOMEN PELVIS WO CONTRAST REASON FOR STUDY: unresponsive Pt to ED BIBEMS from rehab facility for stroke like symptoms. Per EMS pt LKW was wither 11:30 or 1:30 Pt recently D/C yesterday, with admission for Sepsis. Per EMS pt has Right sided weakness with facial droop. Pt not participating in neuro exam TECHNIQUE: CT scan of the chest, abdomen, and pelvis performed without intravenous and without oral contrast using helical scanning technique. Reconstructed coronal and sagittal MPR images reviewed. All images stored on PACS. Automated exposure control was used as a dose optimization technique for this examination. COMPARISON: 05/24/2025 FINDINGS: The sensitivity for detection of visceral lesions is diminished without the use of intravenous contrast. CHEST LUNGS: Extensive coarse strandy opacity is seen in the lungs particularly affecting the dependent lower lobes suggestive of areas of infiltrate and minor atelectasis. Minor consolidation is seen dependently in the lower lungs. This represents considerable worsening from the prior study. Some interseptal lobular thickening is seen of the upper lungs suggesting some degree of fluid overload. No masses are seen. PLEURA: Small bilateral pleural effusions are noted. These have increased from previous. MEDIASTINUM/LOKI: Some mildly prominent lymph nodes are noted which may be reactive. No masses are seen. Calcified nodule seen in the right thyroid measuring 1.5 cm. HEART: Tiny pericardial effusion is noted. CORONARY ARTERY CALCIFICATION: Yes VASCULATURE CHEST: Atherosclerotic calcification is seen of the thoracic aorta. No aneurysm is seen. AXILLA: No adenopathy. CHEST WALL: No masses. No subcutaneous air. HARDWARE/LINES/TUBES: None. MUSCULOSKELETAL CHEST: No significant abnormality. ABDOMEN/PELVIS LIVER: Normal size. No identified cystic or solid masses. No cysts. GALLBLADDER: Unremarkable BILE DUCTS: No intrahepatic or extrahepatic ductal dilatation. SPLEEN: Normal size. No focal lesions. PANCREAS: No identified cystic or solid masses. No significant calcifications. No adjacent inflammation or peripancreatic fluid collections. Pancreatic duct not dilated. ADRENALS: Normal. KIDNEYS/URINARY TRACT: No identified significant cystic or solid masses. No stones. No hydronephrosis or hydroureter. Urinary bladder is unremarkable. GI: No dilated bowel loops. No obvious wall thickening. Normal appendix. No significant diverticular disease. PERITONEUM: No ascites or free air. RETROPERITONEUM: No mass or adenopathy. REPRODUCTIVE: No significant abnormality. VASCULATURE ABDOMEN: Diffuse atherosclerotic calcification is noted. No aneurysm is seen. MUSCULOSKELETAL ABDOMEN PELVIS: No acute finding. OTHER: No significant abnormality. IMPRESSION: 1. Extensive coarse strandy opacity is seen in the lungs particularly affecting the dependent lower lobes suggestive of areas of infiltrate and minor atelectasis. Minor consolidation is seen dependently in the lower lungs. This represents considerable worsening from the prior study. 2. Small bilateral pleural effusions are noted. These have increased from previous. 3. Some interseptal lobular thickening is seen of the upper lungs suggesting some degree of fluid overload. 4. Tiny pericardial effusion is noted. 5. Calcified nodule seen in the right thyroid measuring 1.5 cm. Follow-up as below. According to guidelines published in the White Paper of the ACR Incidental Thyroid Findings Committee, follow-up recommendations for incidentally detected thyroid nodules are as follows: 1. In patients <35 years with an incidental thyroid nodule (ITN) detected on CT, MRI, or extrathyroidal ultrasound, the committee recommends further evaluation with dedicated thyroid ultrasound if the nodule is 1 cm, without suspicious imaging features and the patient has normal life expectancy. 2. In patients 35 years with an incidental thyroid nodule ITN detected on CT, MRI, or extrathyroidal ultrasound, the committee recommends further evaluation with dedicated thyroid ultrasound if the nodule is 1.5 cm, without suspicious imaging features, and the patient has normal life expectancy. THIS IS AN ELECTRONICALLY VERIFIED FINAL REPORT 06/01/2025 5:02 PM - Electronically signed by Christopher Lemon M.D. KH: DREA Report ID: [id number] Reading Location: [place] [address] Procedure Note Christopher Lemon MD - 06/01/2025 EXAM DESCRIPTION: CT CHEST ABDOMEN PELVIS WO CONTRAST REASON FOR STUDY: unresponsive Pt to ED BIBEMS from rehab facility for stroke like symptoms. Per EMS ptLKW was wither 11:30 or 1:30 Pt recently D/C yesterday, with admission forSepsis. Per EMS pt has Right sided weakness with facial droop. Pt notparticipating in neuro exam TECHNIQUE: CT scan of the chest, abdomen, and pelvis performed without intravenous and without oral contrast using helical scanning technique. Reconstructed coronal and sagittal MPR images reviewed. All images storedon PACS. Automated exposure control was used as a dose optimizationtechnique for this examination. COMPARISON: 05/24/2025 FINDINGS: The sensitivity for detection of visceral lesions is diminished withoutthe use of intravenous contrast. CHEST LUNGS: Extensive coarse strandy opacity is seen in the lungsparticularly affecting the dependent lower lobes suggestive of areas of infiltrate and minor atelectasis. Minor consolidation is seen dependently in the lower lungs. This represents considerable worsening from the prior study. Some interseptal lobular thickening is seen of the upper lungs suggesting some degree of fluid overload. No masses are seen. PLEURA: Small bilateral pleural effusions are noted. These haveincreased from previous. MEDIASTINUM/LOKI: Some mildly prominent lymph nodes are noted which maybe reactive. No masses are seen. Calcified nodule seen in the right thyroid measuring 1.5 cm. HEART: Tiny pericardial effusion is noted. CORONARY ARTERY CALCIFICATION: Yes VASCULATURE CHEST: Atherosclerotic calcification is seen of the thoracic aorta. No aneurysm is seen. AXILLA: No adenopathy. CHEST WALL: No masses. No subcutaneous air. HARDWARE/LINES/TUBES: None. MUSCULOSKELETAL CHEST: No significant abnormality. ABDOMEN/PELVIS LIVER: Normal size. No identified cystic or solid masses. No cysts. GALLBLADDER: Unremarkable BILE DUCTS: No intrahepatic or extrahepatic ductal dilatation. SPLEEN: Normal size. No focal lesions. PANCREAS: No identified cystic or solid masses. No significant calcifications. No adjacent inflammation or peripancreatic fluidcollections. Pancreatic duct not dilated. ADRENALS: Normal. KIDNEYS/URINARY TRACT: No identified significant cystic or solid masses.No stones. No hydronephrosis or hydroureter. Urinary bladder isunremarkable. GI: No dilated bowel loops. No obvious wall thickening. Normalappendix. No significant diverticular disease. PERITONEUM: No ascites or free air. RETROPERITONEUM: No mass or adenopathy. REPRODUCTIVE: No significant abnormality. VASCULATURE ABDOMEN: Diffuse atherosclerotic calcification is noted. No aneurysm is seen. MUSCULOSKELETAL ABDOMEN PELVIS: No acute finding. OTHER: No significant abnormality. IMPRESSION: 1. Extensive coarse strandy opacity is seen in the lungs particularly affecting the dependent lower lobes suggestive of areas of infiltrate and minor atelectasis. Minor consolidation is seen dependently in the lowerlungs. This represents considerable worsening from the prior study. 2. Small bilateral pleural effusions are noted. These have increasedfrom previous. 3. Some interseptal lobular thickening is seen of the upper lungssuggesting some degree of fluid overload. 4. Tiny pericardial effusion is noted. 5. Calcified nodule seen in the right thyroid measuring 1.5 cm.Follow-up as below. According to guidelines published in the White Paper of the ACRIncidental Thyroid Findings Committee, follow-up recommendations for incidentally detected thyroid nodules are as follows: 1. In patients <35 years with an incidental thyroid nodule (ITN)detected on CT, MRI, or extrathyroidal ultrasound, the committee recommends further evaluation with dedicated thyroid ultrasound if the nodule is 1 cm,without suspicious imaging features and the patient has normal life expectancy. 2. In patients 35 years with an incidental thyroid nodule ITN detectedon CT, MRI, or extrathyroidal ultrasound, the committee recommends further evaluation with dedicated thyroid ultrasound if the nodule is 1.5 cm,without suspicious imaging features, and the patient has normal life expectancy. THIS IS AN ELECTRONICALLY VERIFIED FINAL REPORT 06/01/2025 5:02 PM - Electronically signed by Christopher Lemon M.D. KH: KH Report ID: [id number] Reading Location: [place] [address] Liat Potts MD IMG CT PROCEDURES Final R esult * (ABNORMAL) Pro B-type natriuretic peptide (06/01/2025 4:25 PM CDT) NT-proBNP 13,130(H) <=300 pg/mL DARINEL RICHTER ([place]) Comment: Interpretive Comments: A. Dyspnea in Acute Care Setting All Ages: < 300 pg/ml, acute heart failure unlikely. < 50 yrs: 300 - 450 pg/ml, further investigation warranted. > 450 pg/ml, acute heart failure likely. 50 - 74 yrs: 300 - 900 pg/ml, further investigation warranted. > 900 pg/ml, acute heart failure likely . > or = 75 yrs: 450 - 1800 pg/ml, further investigation warranted. > 1800 pg/ml, acute heart failure likely. B. Non-acute Setting < 75 yrs < 125 pg/ml, rules out heart failure. > or = 125 pg/ml, further investigation warranted. > or = 75 yrs < 450 pg/ml, rules out heart failure. > or = 450 pg/ml, further investigation warranted. - Knowledge of each individual patient's NT-proBNP range may be more useful than using similar cut-points for every patient. Please note that marked elevations in NT-proBNP levels may be observed in state other than Left Ventricular Congestive Failure, including: acute coronary syndromes, right heart strain/failure (including pulmonary embolism and cor pulmonale), critical illness, renal failure, as well as advanced age. - References: 1. Anny SEAY et.al. Eur Heart J. 2006:27:330-337. 2. Hoang VEGA, Azul DENIS. J. AM Christian Cardiol: Cardiovasc Imag. 2009;2: 216- 225. Interpretive Data Last Revised Date: 2018. Blood 06/01/2025 4:25 PM CDT 06/01/2025 5:37 PM CDT us Liat Potts MD LAB BLOOD ORDERABLES Aracelis alvarenga Result [facility] ([place]) 1 [facility] Department [place] [address] * (ABNORMAL) Urinalysis reflex to microscopic and culture Urine (06/01/2025 3:17 PM CDT) Color, ur Yellow Yellow Clarity, ur Clear Clear [facility] ([place]) Specific gravity, ur 1.030 1.003 - 1.030 [facility] ([place]) pH, urine 6.0 [facility] ([place]) Comment: Interpretive Data U rine pH is affected by diet, medications, systemic acid-base disturbances, and renal tubular function. pH may affect urinary stone formation. For example, urine pH below 6.0 may help reduce the tendency for calcium phosphate stones and pH greater than 6.0 may reduce the tendency for uric acid stone formation. Source: [facility] [email or web address] Current Interpretive Data was last revised on 2017 Protein, ur ql 1+(A) Negative [facility] ([place]) Glucose, ur ql Negative Negative [facility] ([place]) Ketones, ur Negative Negative [facility] ([place]) Bilirubin, ur Negative Negative [facility] ([place]) Blood, ur Negative Negative [facility] ([place]) Urobilinogen, ur <2.0 <2.0 mg/dL [facility] ([place]) Nitrite, ur Negative Negative [facility] ([place]) Leukocyte esterase, ur 1+(A) Negative DARINEL RICHTER ([place]) UA reflex comment Reflex to microscopic UA will be performed. D[facility]INEL RICHTER ([place]) Urine 06/01/2025 3:17 PM CDT 06/01/2025 3:24 PM CDT Liat Potts MD LAB MICROBIOLOGY - GENERA L ORDERABLES Final Result DARINEL RICHTER ([place]) 1 [facility] Department [place] [address] * (ABNORMAL) Drugs of Abuse Screen, Urine without Confirmation (06/01/2025 3:17 PM CDT) Amphetamine, ur Not Detected CutOff 500ng/mL [facility]ARINEL RICHTER ([place]) Comment: Interpretive Data - Amphetamines: Samples containing greater than 500 ng/mL d-methamphetamine or other cross-reacting amphetamine compounds are reported as positive. Amphetamine immunoassays are subject to significant false positive rates due to cross-reactivity of non-amphetamine drugs. Confirmatory testing required for definitive results. Current Interpretive Data was last reviewed 2023. Barbiturates, ur Not Detected CutOff 200ng/mL [facility]ARINEL RICHTER ([place]) Comment: Interpretive Data - Barbiturates: Samples containing greater than 200 ng/mL secobarbital or other cross-reacting barbiturate compounds are reported as positive. False positive and false negative results are possible. Confirmatory testing required for definitive results. Current Interpretive Data was last reviewed 2023. Benzodiazepines, ur Screen Positive, presumptive (A) CutOff 100ng/mL D[facility]INEL RICHTER ([place]) Comment: Interpretive Data - Benzodiazepines: Samples containing greater than 100 ng/mL nordiazepam or other cross-reacting compounds are reported as positive. False positive and false negative results are possible. Confirmatory testing required for definitive results. Current Interpretive Data was last reviewed 2023. Cannabinoids, ur Not Detected CutOff 50 ng/mL [facility] ([place]) Comment: Interpretive Data - Cannabinoids: Samples containing greater than 50 ng/mL delta-9 THC -COOH or other cross- reacting compounds are reported as positive. False positive and false negative results are possible. Confirmatory testing required for definitive results. Current Interpretive Data was last reviewed 2023. Cocaine, ur Not Detected CutOff 150ng/mL [facility] ([place]) Comment: Interpretive Data - Cocaine: Samples containing greater than 150 ng/mL benzoylecgonine or other cross- reacting compounds are reported as positive. False positive and false negative results are possible. Confirmatory testing required for definitive results. Current Interpretive Data was last reviewed 2023. Fentanyl, Ur Not Detected CutOff 5 ng/mL [facility] ([place]) Comment: Interpretive Data - Fentanyl: Samples containing greater than 5 ng/mL norfentanyl, fentanyl, or other cross-reacting fentanyl compounds are reported as positive. False positive and false negative results are possible. Confirmatory testing required for definitive results. Current Interpretive Data was last reviewed 2023. Methadone, ur Not Detected CutOff 300ng/mL [facility] ([place]) Comment: Interpretive Data - Methadone: Samples containing greater than 300 ng/mL d,l-methadone or other cross-reacting compounds are reported as positive. False positive and false negative results are possible. Confirmatory testing required for definitive results. Current Interpretive Data was last reviewed 2023. Opiates, ur Not Detected CutOff 300ng/mL [facility] ([place]) Comment: Interpretive Data - Opiates: Samples containing greater than 300 ng/mL morphine or other cross-reacting compounds are reported as positive. False positive and false negative results are possible. Confirmatory testing required for definitive results. Current Interpretive Data was last reviewed 2023. Oxycodone, ur Not Detected CutOff 100ng/mL [facility] ([place]) Comment: Interpretive Data - Oxycodone: Samples containing greater than 100 ng/mL oxycodone or other cross-reacting compounds are reported as positive. False positive and false negative results are possible. Confirmatory testing required for definitive results. Current Interpretive Data was last reviewed 2023. Phencyclidine, ur Not Detected CutOff 25 ng/mL [facility] ([place]) Comment: Interpretive Data - Phencyclidine: Samples containing greater than 25 ng/mL phencyclidine or other cross-reacting compounds are reported as positive. False positive and false negative results are possible. Confirmatory testing required for definitive results. Current Interpretive Data was last reviewed 2023. Urine Creatinine 60 mg/dL [facility] ([place]) Comment: Interpretive Data Urine Creatinine: < 10 mg/dL is extremely dilute = or > 10 but < 20 mg/dL is dilute = or > 20 mg/dL is normal Current Interpretive Data was last revised on 2018. Urine 06/01/2025 3:17 PM CDT 06/01/2025 3:24 PM CDT Narrative [facility] ([place]) - 06/01/2025 3:46 PM CDT Drug of Abuse screening is performed by immunoassay for medical purposes only. This is not to be used for Pain Management purposes. Liat Potts MD LAB URINE ORDERABLES Aracelis l Result Performing Organization Address [facility] de Phone Number [facility] ([place]) [address] [place] [address] [email or web address] [address] * (ABNORMAL) Urinalysis, microscopic only (06/01/2025 3:17 PM CDT) WBC, ur 0-5 0 - 5 /HPF RBC, ur 0-2 0 - 2 /HPF [facility] ([place]) Epithelial cells, squamous, ur 1-5 0 - 5 /HPF [facility] ([place]) Bacteria, ur Trace(A) [facility] ([place]) Mucous, ur Present(A) [facility] ([place]) Hyaline casts, ur 6-10 0 - 10 /LPF [facility] ([place]) Culture Reflex Comment Reflex conditions for urine culture (WBC >10) not met. [facility] ([place]) Urine 06/01/2025 3:17 PM CDT 06/01/2025 3:24 PM CDT Liat Potts MD LAB URINE ORDERABLES Aracelis l Result Performing Organization Address [facility] Co de Phone Number [facility] ([place]) 1 [facility] [place] [address] * Blood culture Blood Peripheral (06/01/2025 3:06 PM CDT) Report Final Report: No growth Comment:Testing performed by : [facility], [address] [facility], [place]., [address] Blood (Peripheral) 06/01/2025 3:06 PM CDT 06/01/2025 5:52 PM CDT Narrative DARINEL RICHTER ([place]) - 06/06/2025 7:00 AM CDT From a different site than #1. Draw Blood cultures before administration of Antibiotics Collection->Peripheral 1. Blood cultures are incubated for 4 days on a continuously monitored blood culture system. The first report of a negative culture is issued within 24 hours of receipt of the specimen in the laboratory. 2. Positive culture results are reported as soon as they are detected. 3. The most important factor for detection of microbes in the setting of bloodstream infection is the volume of blood submitted for culture. Failure to collect an optimal blood volume can result in false negative blood cultures. 4. For pediatric patients, the recommended blood volume to collect follows a weight based strategy. See the electronic test catalog for collection instructions. 5. For positive blood cultures, a rapid molecular test may be performed for organism identification using the barb ePlex blood culture identification panel for gram positive (BCID-GP) and gram negative (BCID-GN) organisms. This nucleic acid amplification test detects microbial DNA in positive blood culture broth. This assay has been cleared by the [place] Food and Drug Administration and its performance characteristics have been verified by the [facility]. For questions about this culture, contact the Microbiology Laboratory at [phone]. Interpretive data was last revised on 24. us Liat Potts MD LAB MICROBIOLOGY - GENERA L ORDERABLES Final Result DARINEL NEELAM ([place]) 1 [facility] Department [place] [address] * CTA Stroke Head Neck W WO Contrast (06/01/2025 3:02 PM CDT) Anatomical Region Laterality Modality Head and Neck N/A Computed Tomogra phy 06/01/2025 3:16 PM CDT Narrative 06/01/2025 3:40 PM CDT EXAM DESCRIPTION: CTA STROKE HEAD NECK W WO CONTRAST REASON FOR STUDY: Stroke/TIA, determine embolic source Right side weakness Last known well between 1130 and 1330 TECHNIQUE: Axial images were first obtained through the brain without contrast. Axial dynamic scanning technique with dynamic contrast enhancement through the intracranial and extracranial carotid and vertebral arteries. Multiplanar reconstruction. All stenosis measurements are based on NASCET criteria. 3D MIP images rendered on scanning unit and reviewed at time of interpretation. Automated exposure control was used as a dose optimization technique for this examination. CONTRAST TYPE/DOSE: 100mL of IOVERSOL 350 MG IODINE/ML INTRAVENOUS SYRINGE injected via intravenous COMPARISON: Same day noncontrast head CT. Brain MRI 05/20/2025. CTA of the head and neck dated 05/19/2025 FINDINGS: INTRACRANIAL VESSELS ANTERIOR CIRCULATION: Dense atherosclerotic plaque of the carotid siphons bilaterally. The carotid siphons appear patent bilaterally. The right A1 segment is patent. 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 Left A2 is supplied by A-comm. Remainder of the KIRK branches are normal in caliber. Grossly unchanged severe long segment stenosis of the right middle cerebral artery M1 branch measuring approximately 9 mm in length. There is also stenosis of the origin of a M2 branch, unchanged. Severe stenosis of the left carotid terminus and proximal left MCA M1. The left M1 demonstrates short-segment normal caliber and severe stenosis distally to the origin of the M2 segments. There is severe stenosis of a M2 segment. These findings are not significantly changed from the prior examination. POSTERIOR CIRCULATION: Severe stenosis of the right vertebral artery V3/V4 junction appears increased from prior exam. There is severe stenosis of the proximal right V4. The right V4 is completely non opacified distally which is a new finding (series 4, image 281). Mild multifocal stenosis of the left vertebral artery V4 segment. Basilar artery is patent. There is no significant bilateral PCOM. Severe stenosis of the right AMBULATORY SERVICES REPRESENTATIVE P2 segment is unchanged. Severe stenosis of the left AMBULATORY SERVICES REPRESENTATIVE P1 and P2 segments with some reconstitution distally. AMBULATORY SERVICES REPRESENTATIVE findings appear similar to the prior exam. Please refer to same day noncontrast head CT for non-angiographic findings of the head. CAROTID CTA AORTIC ARCH: There is mild atherosclerosis of the aorta. There is normal three-vessel anatomy. RIGHT CAROTIDS: Early bifurcation. The right common and internal carotid arteries are patent. There is mild stenosis secondary to atherosclerosis of the right carotid bulb and proximal right internal carotid artery. No dissection. LEFT CAROTIDS: Early bifurcation. The left common and internal carotid arteries are patent. There is minimal stenosis secondary to atherosclerosis seen of the left carotid bulb. No dissection. Mild stenosis of the artery. RIGHT VERTEBRAL: Patent. LEFT VERTEBRAL: Patent. NON-VASCULAR SOFT TISSUES: There is a rim calcified 1.6 cm right thyroid nodule. No evidence of adenopathy or mass. BONES: There is degenerative change through out the cervical spine. LUNG APICES: [id number] left and small right pleural effusions. Mosaic lung attenuation. Prominent mediastinal lymph nodes. OTHER: No other significant finding. IMPRESSION: INTRACRANIAL CTA: 1. Severe stenosis of the right vertebral artery V3/V4 junction has increased from prior exam. Increased stenosis of the right vertebral artery V4 segment with new non-opacification of the distal right V4 slightly proximal to the basilar. 2. Otherwise no significant change compared to 05/19/2025. Redemonstrated severe stenosis of the left carotid terminus , bilateral MCA M1 segments and possibly the left KIRK A1 segment. 3. Redemonstrated severe stenosis of the left AMBULATORY SERVICES REPRESENTATIVE P1-P2 segments and right AMBULATORY SERVICES REPRESENTATIVE P2 segments. 4. Please refer to same day noncontrast head CT for non angiographic findings of the head. CAROTID CTA: 1. No large vessel occlusion. Atherosclerotic calcification of the bilateral carotid bulbs without high-grade stenosis. 2. New vwqcz-fa-fyhmyzud left and small right pleural effusions. The findings were discussed with Dr. Potts via telephone on 06/01/2025 at 15:34 central standard time. THIS IS AN ELECTRONICALLY VERIFIED FINAL REPORT 06/01/2025 3:40 PM - Electronically signed by Vidal Ibarra M.D. MM: MM Report ID: [id number] Reading Location: [id number] Procedure Note Vidal Ibarra MD - 06/01/2025 EXAM DESCRIPTION: CTA STROKE HEAD NECK W WO CONTRAST REASON FOR STUDY: Stroke/TIA, determine embolic source Right side weakness Last known well between 1130 and 1330 TECHNIQUE: Axial images were first obtained through the brain without contrast. Axial dynamic scanning technique with dynamic contrast enhancement throughthe intracranial and extracranial carotid and vertebral arteries. Multiplanar reconstruction. All stenosis measurements are based on NASCET criteria. 3D MIP images rendered on scanning unit and reviewed at time of interpretation. Automated exposure control was used as a dose optimization technique forthis examination. CONTRAST TYPE/DOSE: 100mL of IOVERSOL 350 MG IODINE/ML INTRAVENOUSSYRINGE injected via intravenous COMPARISON: Same day noncontrast head CT. Brain MRI 05/20/2025. CTA ofthe head and neck dated 05/19/2025 FINDINGS: INTRACRANIAL VESSELS ANTERIOR CIRCULATION: Dense atherosclerotic plaque of the carotid siphons bilaterally. Thecarotid siphons appear patent bilaterally. 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 Left A2 is supplied by A-comm. Remainder of the KIRK branches are normal in caliber. Grossly unchanged severe long segment stenosis of the right middlecerebral artery M1 branch measuring approximately 9 mm in length. There is also stenosis of the origin of a M2 branch, unchanged. Severe stenosis of the left carotid terminus and proximal left MCA M1.The left M1 demonstrates short-segment normal caliber and severe stenosisdistally to the origin of the M2 segments. There is severe stenosis of a L0xtvkxwn. These findings are not significantly changed from the prior examination. POSTERIOR CIRCULATION: Severe stenosis of the right vertebral artery V3/V4 junction appears increased from prior exam. There is severe stenosis ofthe proximal right V4. The right V4 is completely non opacified distallywhich is a new finding (series 4, image 281). Mild multifocal stenosis of the left vertebral artery V4 segment. Basilar artery is patent. There is no significant bilateral PCOM. Severe stenosis of the right AMBULATORY SERVICES REPRESENTATIVE P2 segmentis unchanged. Severe stenosis of the left AMBULATORY SERVICES REPRESENTATIVE P1 and P2 segments with some reconstitution distally. AMBULATORY SERVICES REPRESENTATIVE findings appear similar to the prior exam. Please refer to same day noncontrast head CT for non-angiographic findingsof the head. CAROTID CTA AORTIC ARCH: There is mild atherosclerosis of the aorta. There is normal three-vessel anatomy. RIGHT CAROTIDS: Early bifurcation. The right common and internal carotid arteries are patent. There is mild stenosis secondary to atherosclerosisof the right carotid bulb and proximal right internal carotid artery. No dissection. LEFT CAROTIDS: Early bifurcation. The left common and internal carotid arteries are patent. There is minimal stenosis secondary toatherosclerosis seen of the left carotid bulb. No dissection. Mild stenosis of theartery. RIGHT VERTEBRAL: Patent. LEFT VERTEBRAL: Patent. NON-VASCULAR SOFT TISSUES: There is a rim calcified 1.6 cm right thyroid nodule. No evidence of adenopathy or mass. BONES: There is degenerative change through out the cervical spine. LUNG APICES: Imyvc-fk-pdrwpkji left and small right pleural effusions. Mosaic lung attenuation. Prominent mediastinal lymph nodes. OTHER: No other significant finding. IMPRESSION: INTRACRANIAL CTA: 1. Severe stenosis of the right vertebral artery V3/V4 junction has increased from prior exam. Increased stenosis of the right vertebralartery V4 segment with new non-opacification of the distal right V4 slightlyproximal to the basilar. 2. Otherwise no significant change compared to 05/19/2025.Redemonstrated severe stenosis of the left carotid terminus , bilateral MCA M1 segmentsand possibly the left KIRK A1 segment. 3. Redemonstrated severe stenosis of the left AMBULATORY SERVICES REPRESENTATIVE P1-P2 segments andright AMBULATORY SERVICES REPRESENTATIVE P2 segments. 4. Please refer to same day noncontrast head CT for non angiographic findings of the head. CAROTID CTA: 1. No large vessel occlusion. Atherosclerotic calcification of the bilateral carotid bulbs without high-grade stenosis. 2. New ppfgw-me-jclcftsg left and small right pleural effusions. The findings were discussed with Dr. Potts via telephone on06/01/2025 at 15:34 central standard time. THIS IS AN ELECTRONICALLY VERIFIED FINAL REPORT 06/01/2025 3:40 PM - Electronically signed by Vidal Ibarra M.D. MM: MM Report ID: [id number] Reading Location: [id number] Liat Potts MD [facility] CT PROCEDURES Final R esult * (ABNORMAL) Sepsis Lactate w/ Reflex (06/01/2025 2:59 PM CDT) Sepsis Lactate 2.2(H) 0.7 - 2.0 mmol/L Blood 06/01/2025 2:59 PM CDT 06/01/2025 3:24 PM CDT Liat Potts MD LAB BLOOD ORDERABLES Aracelis l Result [facility] ([place]) 1 [facility] Department [place] [address] * Blood culture Blood Peripheral (06/01/2025 2:59 PM CDT) Report Final Report: No growth Comment:Testing performed by : [facility], [address] [facility], [place]., [address] Blood (Peripheral) 06/01/2025 2:59 PM CDT 06/01/2025 5:52 PM CDT Narrative [facility] ([place]) - 06/06/2025 7:00 AM CDT Draw Blood cultures before administration of Antibiotics Collection->Peripheral 1. Blood cultures are incubated for 4 days on a continuously monitored blood culture system. The first report of a negative culture is issued within 24 hours of receipt of the specimen in the laboratory. 2. Positive culture results are reported as soon as they are detected. 3. The most important factor for detection of microbes in the setting of bloodstream infection is the volume of blood submitted for culture. Failure to collect an optimal blood volume can result in false negative blood cultures. 4. For pediatric patients, the recommended blood volume to collect follows a weight based strategy. See the electronic test catalog for collection instructions. 5. For positive blood cultures, a rapid molecular test may be performed for organism identification using the barb ePlex blood culture identification panel for gram positive (BCID-GP) and gram negative (BCID-GN) organisms. This nucleic acid amplification test detects microbial DNA in positive blood culture broth. This assay has been cleared by the [place] Food and Drug Administration and its performance characteristics have been verified by the [facility]. For questions about this culture, contact the Microbiology Laboratory at [phone]. Interpretive data was last revised on 24. Liat Potts MD LAB MICROBIOLOGY - GENERA L ORDERABLES Final Result [facility] ([place]) 1 [facility] Department [place] [address] * CT Stroke Head WO Contrast (06/01/2025 2:49 PM CDT) Anatomical Region Laterality Modality Head N/A Computed Tomogra phy 06/01/2025 2:52 PM CDT Narrative 06/01/2025 3:06 PM CDT EXAM DESCRIPTION: CT STROKE HEAD WO CONTRAST REASON FOR STUDY: Stroke Right side weakness Last known well 11:30 to 1330 TECHNIQUE: Axial images acquired through the brain without intravenous contrast. Images stored on PACS. Automated exposure control was used as a dose optimization technique for this examination. COMPARISON: CT head 05/24/2025 FINDINGS: BRAIN: No hemorrhage, edema or mass effect. Significant midline shift. Redemonstrated remote lacunar infarcts involving the right basal ganglia and right centrum semiovale. New focal regions of hypodensity involving the left posterior aguilar radiata and tail of the caudate nucleus. 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 CALVARIUM: No fracture. Redemonstrated right frontal ron hole. SINUSES/MASTOIDS: No fluid or mucosal thickening. ORBITS: No significant abnormality. OTHER: No other significant abnormality. IMPRESSION: 1. New focal hypodense regions involving the left posterior aguilar radiata and tail of the caudate nucleus, consistent with subacute to acute infarcts. 2. 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 These significant findings were reported by telephone to Dr. Potts on 06/01/2025 at 3:05 p.m. . THIS IS AN ELECTRONICALLY VERIFIED FINAL REPORT 06/01/2025 3:06 PM - Electronically signed by Christopher Barney M.D. KR: RAY Report ID: [id number] Reading Location: [place] [address] Procedure Note Christopher Barney MD - 06/01/2025 EXAM DESCRIPTION: CT STROKE HEAD WO CONTRAST REASON FOR STUDY: Stroke Right side weakness Last known well 11:30 to 1330 TECHNIQUE: Axial images acquired through the brain without intravenous contrast. Images stored on PACS. Automated exposure control was used asa dose optimization technique for this examination. COMPARISON: CT head 05/24/2025 FINDINGS: BRAIN: No hemorrhage, edema or mass effect. Significant midline shift. Redemonstrated remote lacunar infarcts involving the right basal gangliaand right centrum semiovale. New focal regions of hypodensity involving theleft posterior aguilar radiata and tail of the caudate nucleus. 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 CALVARIUM: No fracture. Redemonstrated right frontal ron hole. SINUSES/MASTOIDS: No fluid or mucosal thickening. ORBITS: No significant abnormality. OTHER: No other significant abnormality. IMPRESSION: 1. New focal hypodense regions involving the left posterior coronaradiata and tail of the caudate nucleus, consistent with subacute to acuteinfarcts. 2. 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 These significant findings were reported by telephone to Dr. Clayton 06/01/2025 at 3:05 p.m. . THIS IS AN ELECTRONICALLY VERIFIED FINAL REPORT 06/01/2025 3:06 PM - Electronically signed by Christopher Barney M.D. KR: RAY Report ID: [id number] Reading Location: [place] [address] Liat Potts MD IM [address] PROCEDURES Final R esult * (ABNORMAL) Troponin T high-sensitivity series (baseline, 2hr, 4hr, 6hr) (06/01/2025 2:49 PM CDT) Trop T hs 586(C) <=14 ng/L [facility] ([place]) Comment: Critical Result called by [id number] at 2025-06-01 15:19:56. Result Read Back by Anika Renteria () Interpretive Data For further hscTnT resources including the diagnostic algorithm and an aid in interpretation, copy and paste this link: [email or web address].testcatalog.org/[email or web address] Current Interpretive Data last revised 2020. Blood 06/01/2025 2:49 PM CDT 06/01/2025 2:53 PM CDT Liat Potts MD LAB BLOOD ORDERABLES Aracelis l Result Performing Organization Address City/[facility]/ZIP Co de Phone Number DARINEL RICHTER ([place]) 1 [facility] [place] [address] * (ABNORMAL) eGFR (06/01/2025 2:49 PM CDT) eGFR 49(L) >=60 mL/min/1. 73 [...] interpretive data was last reviewed 2021. Blood 06/01/2025 2:49 PM CDT 06/01/2025 2:53 PM CDT Liat Potts MD LAB BLOOD ORDERABLES Aracelis l Result [facility] ([place]) 1 [facility] [place] [address] * (ABNORMAL) Differential, auto (06/01/2025 2:49 PM CDT) Neutrophil abs 6.18 1.50 - 6.50 K/cumm Imm gran abs 0.35(H) 0.00 - 0.10 K/cumm [facility] ([place]) Lymphocyte abs 3.12 0.80 - 3.30 K/cumm [facility] ([place]) Monocyte abs 0.90(H) 0.20 - 0.80 K/cumm [facility] ([place]) Eosinophil abs 0.56(H) 0.00 - 0.50 K/cumm [facility] ([place]) Basophil abs 0.10 0.00 - 0.10 K/cumm [facility] ([place]) Neutrophil pct 55.2 % [facility] ([place]) Comment: Interpretive Data Percent cell count reference ranges are not reported, since discordance with absolute values may lead to misinterpretation of CBC data. Current Interpretive Data was last revised on 2018. Imm gran pct 3.1 % [facility] ([place]) Comment: Interpretive Data Percent cell count reference ranges are not reported, since discordance with absolute values may lead to misinterpretation of CBC data. Current Interpretive Data was last revised on 2018. Lymphocyte pct 27.8 % [facility] ([place]) Comment: Interpretive Data Percent cell count reference ranges are not reported, since discordance with absolute values may lead to misinterpretation of CBC data. Current Interpretive Data was last revised on 2018. Monocyte pct 8.0 % [facility] ([place]) Comment: Interpretive Data Percent cell count reference ranges are not reported, since discordance with absolute values may lead to misinterpretation of CBC data. Current Interpretive Data was last revised on 2018. Eosinophil pct 5.0 % [facility] ([place]) Comment: Interpretive Data Percent cell count reference ranges are not reported, since discordance with absolute values may lead to misinterpretation of CBC data. Current Interpretive Data was last revised on 2018. Basophil pct 0.9 % [facility] ([place]) Comment: Interpretive Data Percent cell count reference ranges are not reported, since discordance with absolute values may lead to misinterpretation of CBC data. Current Interpretive Data was last revised on 2018. Blood 06/01/2025 2:49 PM CDT 06/01/2025 2:53 PM CDT Liat Potts MD LAB BLOOD ORDERABLES Aracelis l Result [facility] ([place]) 1 [facility] [place] [address] * (ABNORMAL) CBC with auto differential (06/01/2025 2:49 PM CDT) Pathologist [facility] WBC 11.21(H) 3.80 - 9.90 K/cumm Hgb 11.9 11.9 - 15.5 g/dL [facility] ([place]) Hct 36.6 35.6 - 45.5 % [facility] ([place]) Plt 447(H) 150 - 400 K/cumm [facility] ([place]) MPV 9.1 9.1 - 12.3 fL [facility] ([place]) RBC 4.23 3.90 - 5.20 M/cumm [facility] ([place]) MCV 86.5 81.3 - 96.4 fL [facility] ([place]) MCH 28.1 27.1 - 33.3 pg [facility] ([place]) MCHC 32.5 32.3 - 35.7 g/dL [facility] ([place]) RDW CV 15.3(H) 11.1 - 14.9 % [facility] ([place]) RDW SD 47.5 35.7 - 48.1 fL [facility] ([place]) NRBC abs 0.00 0.00 - 0.01 K/cumm [facility] ([place]) Blood 06/01/2025 2:49 PM CDT 06/01/2025 2:53 PM CDT Liat Potts MD LAB BLOOD ORDERABLES Aracelis alvarenga Result Performing Organization Address City/[facility]/ZIP Co de Phone Number [facility] ([place]) 1 [facility] [place] [email or web address] [place] [address] * (ABNORMAL) aPTT (06/01/2025 2:49 PM CDT) aPTT 26(L) 28 - 38 sec [facility]INEL R[facility]TER ([place]) Comment: Interpretive Data Heparin therapeutic range: 66.0 - 100.0 seconds. Range based on correlation with therapeutic heparin activity range of 0.3 - 0.7 Units/mL. Current interpretive data was last revised on 2023. Blood 06/01/2025 2:49 PM CDT 06/01/2025 2:53 PM CDT Liat Potts MD LAB BLOOD ORDERABLES Aracelis l Result Performing Organization Address City/[facility] Co de Phone Number D[facility]EL [facility] ([place]) 1 [facility] [place] [address] * (ABNORMAL) Protime-INR (06/01/2025 2:49 PM CDT) PT 13.1(H) 9.7 - 13.0 sec [facility] ([place]) INR 1.21(H) 0.90 - 1.20 [facility]INEL R[facility] ([place]) Comment: Interpretive data Oral anticoagulant therapeutic ranges: Venous thromboembolism prophylaxis or treatment: 2.0-3.0 CARDIOLOGY Standard range: 2.0-3.0 High-intensity range: 2.5-3.5 Refer to indication-specific guidelines for appropriate target ranges for prosthetic heart valve replacement. Current interpretive data was last revised on 2019. Blood 06/01/2025 2:49 PM CDT 06/01/2025 2:53 PM CDT Liat Potts MD LAB BLOOD ORDERABLES Aracelis l Result Performing Organization Address City/[facility]/ZIP Co de Phone Number DARINEL RICHTER ([place]) 1 [facility] [place] [address] * (ABNORMAL) Comprehensive metabolic panel (06/01/2025 2:49 PM CDT) Sodium 138 135 - 145 mmol/L [facility] ([place]) Potassium, pl 4.0 3.3 - 4.9 mmol/L [facility] ([place]) Chloride 104 97 - 110 mmol/L [facility] ([place]) CO2 19(L) 22 - 32 mmol/L [facility] ([place]) Anion gap 15 2 - 15 mmol/L [facility] ([place]) BUN 11 6 - 25 mg/dL [facility] ([place]) Creatinine 1.19(H) 0.60 - 1.10 mg/dL [facility] ([place]) Glucose 255(H) 70 - 199 mg/dL [facility] ([place]) [...] interpretive data was last revised 2022. Calcium 9.5 8.5 - 10.3 mg/dL [facility] ([place]) Bilirubin, total 0.2 0.1 - 1.2 mg/dL [facility] ([place]) Protein, pl 6.7 6.5 - 8.5 g/dL [facility] ([place]) Albumin 3.7 3.5 - 5.0 g/dL [facility] ([place]) Alk phos 151(H) 40 - 130 Units/L [facility] ([place]) ALT 20 7 - 45 Units/L [facility] ([place]) AST 20 10 - 45 Units/L [facility] ([place]) Blood 06/01/2025 2:49 PM CDT 06/01/2025 2:53 PM CDT us Liat Potts MD LAB BLOOD ORDERABLES Aracelis l Result [facility] ([place]) 1 [facility] Department [place] [address] * (ABNORMAL) POCT glucose (06/01/2025 2:38 PM CDT) Glucose, POC 246(H) 70 - 199 mg/dL Blood 06/01/2025 2:38 PM CDT 06/01/2025 2:38 PM CDT Velia Crowe MD LAB POCT ORDERABLES - DEVICE Fi nal Result [facility] ([place]) 1 [facility] [place] [address] * (ABNORMAL) POCT glucose (05/31/2025 11:42 AM CDT) Glucose, POC 229(H) 70 - 199 mg/dL Blood 05/31/2025 11:4 2 AM CDT 05/31/2025 11:42 AM CDT us Beverly Goff DO LAB POCT ORDERABLES - DE VICE Final Result DARINEL R[facility]TER ([place]) 1 [facility] [place] [address] * eGFR (05/31/2025 10:33 AM CDT) eGFR 73 >=60 mL/min/1. 73 m2 Comment: Interpretive Data [...] of Race in Diagnosing Kidney Disease, JASN 2021). The CKD-EPI equation should not be used for patients with unstable renal function and has not been validated in children and those over 70. Current interpretive data was last reviewed 2021. Blood 05/31/2025 10:3 3 AM CDT 05/31/2025 11:00 AM CDT us Beverly Goff DO LAB BLOOD ORDERABLES Fin al Result [facility] ([place]) 1 [facility] Department [place] [address] * (ABNORMAL) Differential, auto (05/31/2025 10:33 AM CDT) Neutrophil abs 5.67 1.50 - 6.50 K/cumm Imm gran abs 0.36(H) 0.00 - 0.10 K/cumm [facility] ([place]) Lymphocyte abs 3.50(H) 0.80 - 3.30 K/cumm [facility] ([place]) Monocyte abs 0.92(H) 0.20 - 0.80 K/cumm [facility] ([place]) Eosinophil abs 0.75(H) 0.00 - 0.50 K/cumm [facility] ([place]) Basophil abs 0.11(H) 0.00 - 0.10 K/cumm [facility] ([place]) Neutrophil pct 50.2 % [facility] ([place]) Comment: Interpretive Data Percent cell count reference ranges are not reported, since discordance with absolute values may lead to misinterpretation of CBC data. Current Interpretive Data was last revised on 2018. Imm gran pct 3.2 % [facility] ([place]) Comment: Interpretive Data Percent cell count reference ranges are not reported, since discordance with absolute values may lead to misinterpretation of CBC data. Current Interpretive Data was last revised on 2018. Lymphocyte pct 30.9 % [facility] ([place]) Comment: Interpretive Data Percent cell count reference ranges are not reported, since discordance with absolute values may lead to misinterpretation of CBC data. Current Interpretive Data was last revised on 2018. Monocyte pct 8.1 % [facility] ([place]) Comment: Interpretive Data Percent cell count reference ranges are not reported, since discordance with absolute values may lead to misinterpretation of CBC data. Current Interpretive Data was last revised on 2018. Eosinophil pct 6.6 % [facility] ([place]) Comment: Interpretive Data Percent cell count reference ranges are not reported, since discordance with absolute values may lead to misinterpretation of CBC data. Current Interpretive Data was last revised on 2018. Basophil pct 1.0 % [facility] ([place]) Comment: Interpretive Data Percent cell count reference ranges are not reported, since discordance with absolute values may lead to misinterpretation of CBC data. Current Interpretive Data was last revised on 2018. Blood 05/31/2025 10:3 3 AM CDT 05/31/2025 11:00 AM CDT Beverly Goff DO LAB BLOOD ORDERABLES Fin al Result [facility] ([place]) 1 [facility] Department [place] [address] * (ABNORMAL) CBC with auto differential (05/31/2025 10:33 AM CDT) WBC 11.31(H) 3.80 - 9.90 K/cumm Hgb 12.1 11.9 - 15.5 g/dL [facility] ([place]) Hct 36.8 35.6 - 45.5 % [facility] ([place]) Plt 413(H) 150 - 400 K/cumm [facility] ([place]) MPV 9.2 9.1 - 12.3 fL [facility] ([place]) RBC 4.38 3.90 - 5.20 M/cumm [facility] ([place]) MCV 84.0 81.3 - 96.4 fL [facility] ([place]) MCH 27.6 27.1 - 33.3 pg [facility] ([place]) MCHC 32.9 32.3 - 35.7 g/dL [facility] ([place]) RDW CV 15.0(H) 11.1 - 14.9 % [facility] ([place]) RDW SD 45.1 35.7 - 48.1 fL [facility] ([place]) NRBC abs 0.00 0.00 - 0.01 K/cumm [facility] ([place]) Blood 05/31/2025 10:3 3 AM CDT 05/31/2025 11:00 AM CDT Beverly DunhamDouble R Group DO LAB BLOOD ORDERABLES Fin al Result [facility]EL [facility] ([place]) 1 [facility] [place] [email or web address] [address] * Phosphorus (05/31/2025 10:33 AM CDT) Phosphorus, pl 2.7 2.3 - 4.5 mg/dL [facility] ([place]) Blood 05/31/2025 10:3 3 AM CDT 05/31/2025 11:00 AM CDT Beverly Goff DO LAB BLOOD ORDERABLES Fin al Result Performing Organization Address City/[facility]/ZIP Co de Phone Number DARINEL RICHTER ([place]) 1 [facility] [place] [address] * Magnesium (05/31/2025 10:33 AM CDT) Magnesium 1.5 1.4 - 2.5 mg/dL [facility] ([place]) Blood 05/31/2025 10:3 3 AM CDT 05/31/2025 11:00 AM CDT Beverly DunhamDouble [employer] DO LAB BLOOD ORDERABLES Fin al Result Performing Organization Address City/[facility]/ZIP Co de Phone Number DARINEL RICHTER ([place]) 1 [facility] [place] [address] * (ABNORMAL) Comprehensive metabolic panel (05/31/2025 10:33 AM CDT) Sodium 136 135 - 145 mmol/L [facility] ([place]) Potassium, pl 3.5 3.3 - 4.9 mmol/L [facility] ([place]) Chloride 106 97 - 110 mmol/L [facility] ([place]) CO2 17(L) 22 - 32 mmol/L [facility] ([place]) Anion gap 13 2 - 15 mmol/L [facility] ([place]) BUN 9 6 - 25 mg/dL [facility] ([place]) Creatinine 0.86 0.60 - 1.10 mg/dL [facility] ([place]) Glucose 228(H) 70 - 199 mg/dL [facility] ([place]) [...] 2022. Calcium 9.4 8.5 - 10.3 mg/dL [facility] ([place]) Bilirubin, total 0.2 0.1 - 1.2 mg/dL [facility] ([place]) Protein, pl 6.7 6.5 - 8.5 g/dL [facility] ([place]) Albumin 3.4(L) 3.5 - 5.0 g/dL [facility] ([place]) Alk phos 165(H) 40 - 130 Units/L [facility] ([place]) ALT 21 7 - 45 Units/L [facility] ([place]) AST 15 10 - 45 Units/L [facility] ([place]) Blood 05/31/2025 10:3 3 AM CDT 05/31/2025 11:00 AM CDT us Bevelry Goff DO LAB BLOOD ORDERABLES Fin al Result [facility] ([place]) 1 [facility] Department [place] [address] * POCT glucose (05/31/2025 8:02 AM CDT) Glucose, POC 155 70 - 199 mg/dL Blood 05/31/2025 8:02 AM CDT 05/31/2025 8:02 AM CDT Beverly Goff DO LAB POCT ORDERABLES - DE VICE Final Result DARINEL RICHTER ([place]) 1 [facility] [email or web address] [address] * POCT glucose (05/31/2025 2:26 AM CDT) Glucose, POC 140 70 - 199 mg/dL Blood 05/31/2025 2:26 AM CDT 05/31/2025 2:26 AM CDT Beverly Goff DO LAB POCT ORDERABLES - DE VICE Final Result Performing Organization Address City/[facility]/ZIP Co de Phone Number DARINEL RICHTER (KIRKLIN) 1 [facility] [email or web address] [place] [address] * POCT glucose (05/30/2025 7:50 PM CDT) Glucose, POC 185 70 - 199 mg/dL Blood 05/30/2025 7:50 PM CDT 05/30/2025 7:50 PM CDT Beverly Goff DO LAB POCT ORDERABLES - DE VICE Final Result DARINEL RICHTER (KIRKLIN) 1 [facility] [place] [email or web address] [address] * POCT glucose (05/30/2025 5:57 PM CDT) Glucose, POC 181 70 - 199 mg/dL Blood 05/30/2025 5:57 PM CDT 05/30/2025 5:57 PM CDT Beverly Goff DO LAB POCT ORDERABLES - DE VICE Final Result DARINEL MCDERMOTT) 1 [facility] [email or web address] [place] [address] * POCT glucose (05/30/2025 11:55 AM CDT) Glucose, POC 144 70 - 199 mg/dL Blood 05/30/2025 11:5 5 AM CDT 05/30/2025 11:55 AM CDT Beverly Goff DO LAB POCT ORDERABLES - DE VICE Final Result DARINEL BermudezKIRKLIN) 1 [facility] [place] [email or web address] [address] * POCT glucose (05/30/2025 8:18 AM CDT) Glucose, POC 174 70 - 199 mg/dL Blood 05/30/2025 8:18 AM CDT 05/30/2025 8:18 AM CDT Beverly Goff DO LAB POCT ORDERABLES - DE VICE Final Result DARINEL RICHTER (KIRKLIN) 1 [facility] [place] [address] * eGFR (05/30/2025 5:05 AM CDT) eGFR 73 >=60 mL/min/1. 73 m2 Comment: Interpretive Data [...] interpretive data was last reviewed 2021. Blood 05/30/2025 5:05 AM CDT 05/30/2025 5:32 AM CDT us Beverly Goff DO LAB BLOOD ORDERABLES Fin al Result D[facility]EL [facility] (ISABELLE) 1 [facility] [place] [address] * (ABNORMAL) Differential, auto (05/30/2025 5:05 AM CDT) Neutrophil abs 6.56(H) 1.50 - 6.50 K/cumm Imm gran abs 0.32(H) 0.00 - 0.10 K/cumm [facility] ([place]) Lymphocyte abs 3.92(H) 0.80 - 3.30 K/cumm [facility] ([place]) Monocyte abs 0.94(H) 0.20 - 0.80 K/cumm [facility] ([place]) Eosinophil abs 0.99(H) 0.00 - 0.50 K/cumm [facility] ([place]) Basophil abs 0.15(H) 0.00 - 0.10 K/cumm [facility] ([place]) Neutrophil pct 50.9 % [facility] ([place]) Comment: Interpretive Data Percent cell count reference ranges are not reported, since discordance with absolute values may lead to misinterpretation of CBC data. Current Interpretive Data was last revised on 2018. Imm gran pct 2.5 % [facility] ([place]) Comment: Interpretive Data Percent cell count reference ranges are not reported, since discordance with absolute values may lead to misinterpretation of CBC data. Current Interpretive Data was last revised on 2018. Lymphocyte pct 30.4 % [facility] ([place]) Comment: Interpretive Data Percent cell count reference ranges are not reported, since discordance with absolute values may lead to misinterpretation of CBC data. Current Interpretive Data was last revised on 2018. Monocyte pct 7.3 % [facility] ([place]) Comment: Interpretive Data Percent cell count reference ranges are not reported, since discordance with absolute values may lead to misinterpretation of CBC data. Current Interpretive Data was last revised on 2018. Eosinophil pct 7.7 % [facility] ([place]) Comment: Interpretive Data Percent cell count reference ranges are not reported, since discordance with absolute values may lead to misinterpretation of CBC data. Current Interpretive Data was last revised on 2018. Basophil pct 1.2 % [facility] ([place]) Comment: Interpretive Data Percent cell count reference ranges are not reported, since discordance with absolute values may lead to misinterpretation of CBC data. Current Interpretive Data was last revised on 2018. Blood 05/30/2025 5:05 AM CDT 05/30/2025 5:30 AM CDT us Beverly Goff DO LAB BLOOD ORDERABLES Fin al Result DAR[facility]EL [facility] ([place]ELLE) 1 [facility] [place] [address] * (ABNORMAL) CBC with auto differential (05/30/2025 5:05 AM CDT) WBC 12.88(H) 3.80 - 9.90 K/cumm Hgb 12.0 11.9 - 15.5 g/dL [facility] ([place]) Hct 36.0 35.6 - 45.5 % [facility] ([place]) Plt 382 150 - 400 K/cumm [facility] ([place]) MPV 9.2 9.1 - 12.3 fL [facility] ([place]) RBC 4.33 3.90 - 5.20 M/cumm [facility] ([place]) MCV 83.1 81.3 - 96.4 fL [facility] ([place]) MCH 27.7 27.1 - 33.3 pg [facility] ([place]) MCHC 33.3 32.3 - 35.7 g/dL [facility] ([place]) RDW CV 14.6 11.1 - 14.9 % [facility] ([place]) RDW SD 43.9 35.7 - 48.1 fL [facility] ([place]) NRBC abs 0.00 0.00 - 0.01 K/cumm [facility] ([place]LE) Blood 05/30/2025 5:05 AM CDT 05/30/2025 5:30 AM CDT Beverly Goff DO LAB BLOOD ORDERABLES Fin al Result Performing Organization Address City/[facility] Co de Phone Number DARINEL [facility] (ISABELLE) 1 [facility] [place] [address] * Phosphorus (05/30/2025 5:05 AM CDT) Phosphorus, pl 2.6 2.3 - 4.5 mg/dL [facility] ([place]) Blood 05/30/2025 5:05 AM CDT 05/30/2025 5:32 AM CDT Beverly Goff DO LAB BLOOD ORDERABLES Fin al Result Performing Organization Address City/[facility] Co de Phone Number DARINEL RICHTER (ISABELLE) 1 [facility] [place] [address] * Magnesium (05/30/2025 5:05 AM CDT) Magnesium 1.7 1.4 - 2.5 mg/dL [facility] ([place]ELLE) Blood 05/30/2025 5:05 AM CDT 05/30/2025 5:32 AM CDT Beverly Goff DO LAB BLOOD ORDERABLES Fin al Result Performing Organization Address City/[facility]/ZIP Co de Phone Number DARINEL [facility] (ISABELLE) [address] [place] [address] * (ABNORMAL) Comprehensive metabolic panel (05/30/2025 5:05 AM CDT) Sodium 138 135 - 145 mmol/L [facility] ([place]) Potassium, pl 3.4 3.3 - 4.9 mmol/L [facility] ([place]) Chloride 108 97 - 110 mmol/L [facility] ([place]) CO2 16(L) 22 - 32 mmol/L [facility] ([place]) Anion gap 14 2 - 15 mmol/L [facility] ([place]) BUN 10 6 - 25 mg/dL [facility] ([place]) Creatinine 0.86 0.60 - 1.10 mg/dL [facility] ([place]) Glucose 149 70 - 199 mg/dL [facility] ([place]) [...] Calcium 8.8 8.5 - 10.3 mg/dL [facility] ([place]) Bilirubin, total 0.2 0.1 - 1.2 mg/dL [facility] ([place]) Protein, pl 6.4(L) 6.5 - 8.5 g/dL [facility] ([place]) Albumin 3.5 3.5 - 5.0 g/dL [facility] ([place]) Alk phos 161(H) 40 - 130 Units/L [facility] ([place]) ALT 29 7 - 45 Units/L [facility] ([place]) AST 19 10 - 45 Units/L [facility] ([place]) Blood 05/30/2025 5:05 AM CDT 05/30/2025 5:32 AM CDT Beverly Goff DO LAB BLOOD ORDERABLES Fin al Result DARINEL RICHTER (KIRKLIN) 1 [facility] [place] [email or web address] [address] * POCT glucose (05/30/2025 2:40 AM CDT) Glucose, POC 156 70 - 199 mg/dL Blood 05/30/2025 2:40 AM CDT 05/30/2025 2:40 AM CDT Beverly Goff DO LAB POCT ORDERABLES - DE VICE Final Result DARINEL RICHTER (KIRKLIN) 1 [facility] [place] [email or web address] [address] * POCT glucose (05/29/2025 9:38 PM CDT) Glucose, POC 170 70 - 199 mg/dL Blood 05/29/2025 9:38 PM CDT 05/29/2025 9:38 PM CDT Beverly Goff DO LAB POCT ORDERABLES - DE VICE Final Result DARINEL RICHTER (KIRKLIN) 1 [facility] [place] [email or web address] [address] * POCT glucose (05/29/2025 5:09 PM CDT) Glucose, POC 139 70 - 199 mg/dL Blood 05/29/2025 5:09 PM CDT 05/29/2025 5:09 PM CDT Beverly Goff DO LAB POCT ORDERABLES - DE VICE Final Result DARINEL RICHTER (KIRKLIN) 1 [facility] [place] [email or web address] [address] * POCT glucose (05/29/2025 11:38 AM CDT) Pathologist [facility] Glucose, POC 153 70 - 199 mg/dL Blood 05/29/2025 11:3 8 AM CDT 05/29/2025 11:38 AM CDT Beverly Alva Denver DO LAB POCT ORDERABLES - DE VICE Final Result DARINEL RICHTER (KIRKLIN) 1 [facility] [place] [email or web address] [address] * eGFR (05/29/2025 9:17 AM CDT) [facility] eGFR 70 >=60 mL/min/1. 73 m2 Comment: Interpretive Data [...] interpretive data was last reviewed 2021. Blood 05/29/2025 9:17 AM CDT 05/29/2025 9:25 AM CDT Beverly Nida [employer] DO LAB BLOOD ORDERABLES Fin al Result DARINEL RICHTER (ISABELLE) 1 [facility] Department [place] [email or web address] [address] * (ABNORMAL) Differential, auto (05/29/2025 9:17 AM CDT) Neutrophil abs 6.64(H) 1.50 - 6.50 K/cumm Imm gran abs 0.24(H) 0.00 - 0.10 K/cumm [facility] ([place]) Lymphocyte abs 3.11 0.80 - 3.30 K/cumm [facility] ([place]) Monocyte abs 0.80 0.20 - 0.80 K/cumm [facility] ([place]) Eosinophil abs 0.79(H) 0.00 - 0.50 K/cumm [facility] ([place]) Basophil abs 0.11(H) 0.00 - 0.10 K/cumm [facility] ([place]) Neutrophil pct 56.8 % [facility] ([place]) Comment: Interpretive Data Percent cell count reference ranges are not reported, since discordance with absolute values may lead to misinterpretation of CBC data. Current Interpretive Data was last revised on 2018. Imm gran pct 2.1 % [facility] ([place]) Comment: Interpretive Data Percent cell count reference ranges are not reported, since discordance with absolute values may lead to misinterpretation of CBC data. Current Interpretive Data was last revised on 2018. Lymphocyte pct 26.6 % [facility] ([place]) Comment: Interpretive Data Percent cell count reference ranges are not reported, since discordance with absolute values may lead to misinterpretation of CBC data. Current Interpretive Data was last revised on 2018. Monocyte pct 6.8 % [facility] ([place]) Comment: Interpretive Data Percent cell count reference ranges are not reported, since discordance with absolute values may lead to misinterpretation of CBC data. Current Interpretive Data was last revised on 2018. Eosinophil pct 6.8 % [facility] ([place]) Comment: Interpretive Data Percent cell count reference ranges are not reported, since discordance with absolute values may lead to misinterpretation of CBC data. Current Interpretive Data was last revised on 2018. Basophil pct 0.9 % [facility] ([place]) Comment: Interpretive Data Percent cell count reference ranges are not reported, since discordance with absolute values may lead to misinterpretation of CBC data. Current Interpretive Data was last revised on 2018. Blood 05/29/2025 9:17 AM CDT 05/29/2025 9:25 AM CDT Beverly Goff DO LAB BLOOD ORDERABLES Fin al Result DARINEL RICHTER (ISABELLE) 1 [facility] [place] [address] * (ABNORMAL) CBC with auto differential (05/29/2025 9:17 AM CDT) Pathologist [facility] WBC 11.69(H) 3.80 - 9.90 K/cumm Hgb 12.2 11.9 - 15.5 g/dL [facility] ([place]) Hct 37.1 35.6 - 45.5 % [facility] ([place]) Plt 354 150 - 400 K/cumm [facility] ([place]) MPV 9.2 9.1 - 12.3 fL [facility] ([place]) RBC 4.43 3.90 - 5.20 M/cumm [facility] ([place]) MCV 83.7 81.3 - 96.4 fL [facility] ([place]) MCH 27.5 27.1 - 33.3 pg [facility] ([place]) MCHC 32.9 32.3 - 35.7 g/dL [facility] ([place]) RDW CV 14.8 11.1 - 14.9 % [facility] ([place]) RDW SD 44.7 35.7 - 48.1 fL [facility] ([place]) NRBC abs 0.00 0.00 - 0.01 K/cumm [facility] ([place]) Blood 05/29/2025 9:17 AM CDT 05/29/2025 9:25 AM CDT Beverly Goff DO LAB BLOOD ORDERABLES Fin al Result DARINEL RICHTER (ISABELLE) 1 [facility] [place] [address] * Hemochromatosis HFE Gene Analysis (05/29/2025 9:17 AM CDT) HFE Genotype Negative [facility] Comment:Testing performed by : [facility], [address] [place]., [address] HFE p.C282Y Negative DARINEL RIZVI (ISABELLE) Comment:Testing performed by : [facility], [address] [place]., [address] HFE p.H63D Negative DARINEL Scott (ISABELLE) Comment:Testing performed by : [facility], 1 [facility], [address] HFE Interpretation This genotype suggests low risk of hereditary hemochromatosis (HH) but does not rule out diagnosis or risk for HH. Approximately 6% of Caucasians with HH in [place] have this genotype. The frequency in other ethnicities may vary. Correlation of clinical findings and family history with genotype results is recommended for establishing a diagnosis of HH. HH is an autosomal recessive disorder of iron metabolism that results in iron overload and potential organ failure. It is one of the most common genetic disorders in individuals of - ancestry, with an estimated carrier frequency of 10%. HH is associated with variants in the HFE gene. Most individuals with HH (60-90%) are homozygous for the p.C282Y variant. A smaller percentage of affected individuals are either compound heterozygous for the p.C282Y and p.H63D variants (3%-8%), or homozygous for the p.H63D variant (2%). Genetic counseling is recommended for discussion of the clinical implications of this result. DARINEL RICHTER (ISABELLE) Comment:Testing performed by : [facility], [address] [place]., [address] HFE Specimen Whole Blood DOROTHY RICHTER (ISABELLE) Comment:Testing performed by : [facility], [address] [place] [address]., [address] HFE Result Review Final report reviewed by: TI Connolly([facility]) Research Technologist, on 06/06/2025 15:36:02 CDT. DARINEL RICHTER (ISABELLE) Comment: Interpretive Data Method: This assay detects the two variants in the HFE gene, p.C282Y (NM_000410.2: c.845G>A) and p.H63D (NM_000410.2: c.187C>G), that are commonly associated with HH. The variants are detected by a multiplex PCR based assay performed on the [employer] 7500 Fast Dx Real-Time PCR instrument. Limitations: Bone Marrow transplants from allogenic donors may interfere with interpretation of test results. Alternative specimen types including cultured fibroblasts may be necessary for accurate testing results. This assay does not rule out the presence of other disease-causing mutations in the HFE gene or in other genes associated with HH. Since genetic variation and additional factors can affect the accuracy of genotyping, these results should be interpreted in the context of clinical findings, family history, and other laboratory testing (e.g. serum transferrin-iron saturation and serum ferritin). This test was developed and its performance characteristics determined by the Molecular Diagnostics Laboratory at [facility] in a manner consistent with CLIA requirements. This test has not been cleared or approved by the U.S. Food and Drug Administration. References: Armani KJ, Wallace SHARP, Dedrick CC, et al. Flqq-iitqcffs-fyujysd disease in HFE hereditary hemochromatosis. N Engl J Med. 2008;358:221 3 0. Elia BR, Danny PC, Johana KV, et al. Diagnosis and management of hemochromatosis: 2011 practice guideline by the [place] Association for the Study of Liver Diseases. Hepatology. 2011;54:328 4 3. Milton MELVIN, Hidalgo CQ, Analilia RT. HFE gene: structure, function, mutations, and associated iron abnormalities. Gene. 2015;574:179 9 2. Nura YUNG, Remi BRAVO, Quentin PATTERSON, et al. Clinical and biochemical abnormalities in people heterozygous for hemochromatosis. N Engl J Med. 1996;335:1799 8 05. Quique PA, Benjamin LW, Sebas DJ, Jeanmarie Humphrey D, Shira E, Marcio AscencioK. A population- based study of the biochemical and clinical expression of the H63D hemochromatosis mutation. Gastroenterology. 2002;122:646 5 1. Wallace SHARP, Yahaira COHEN, Shemar BAH, et al. HFE C282Y/H63D compound heterozygotes are at low risk of hemochromatosis-related morbidity. Hepatology. 2009;50:94 1 01. Haile TREJO, Vernon Nelsone W. HFE gene and hereditary hemochromatosis: a HuGE review. Human Genome Epidemiology. Am J Epidemiol. 2001 Aug 1; 154(3):193-206. Osmar Sorensen, Elisabeth C, Russell Alvarenga, et al. Two novel nonsense mutations of HFE gene in five unrelated Citizen [place] patients with hemochromatosis. Gastroenterology. 2000;119:441 5 . Polo EP, Judith BA, Narendra EL, et al. Screening for hereditary hemochromatosis: a systematic review for the U.S. Preventive Services Task Force. Emma [employer] Balancing Technician Med. 2006;145:209 2 3. This test was performed at: [facility], [facility], [facility]#[id number], Emma Ramon, Ph.D., [place], [address], [place] Current interpretive data was last revised 2021. Testing performed by: [facility], [address] [place] [address], [place]., [address] Blood 05/29/2025 9:17 AM CDT 05/29/2025 1:46 PM CDT Bobbi Pitt MD LAB GENETIC TESTING Final Result Performing Organization Address City/[facility]/ZIP Co de Phone Number DARINEL [facility] (KIRKLIN) 1 [facility] [address] [facility] * Phosphorus (05/29/2025 9:17 AM CDT) Phosphorus, pl 2.9 2.3 - 4.5 mg/dL [facility]INEL [facility] (ISABELLE) Blood 05/29/2025 9:17 AM CDT 05/29/2025 9:25 AM CDT us Beverly Goff DO LAB BLOOD ORDERABLES Fin al Result Performing Organization Address City/[facility]/ZIP Co de Phone Number [facility] ([place] 1 [facility] [place] [email or web address] [address] * (ABNORMAL) Magnesium (05/29/2025 9:17 AM CDT) Magnesium 1.3(L) 1.4 - 2.5 mg/dL [facility] ([place]) Blood 05/29/2025 9:17 AM CDT 05/29/2025 9:25 AM CDT Beverly Goff DO LAB BLOOD ORDERABLES Fin al Result [facility] (ISAB[place]LE) 1 [facility] [place] [address] * (ABNORMAL) Comprehensive metabolic panel (05/29/2025 9:17 AM CDT) Sodium 136 135 - 145 mmol/L [facility] ([place]) Potassium, pl 3.1(L) 3.3 - 4.9 mmol/L [facility] ([place]) Chloride 106 97 - 110 mmol/L [facility] ([place]) CO2 15(L) 22 - 32 mmol/L [facility] ([place]) Anion gap 15 2 - 15 mmol/L [facility] ([place]) BUN 10 6 - 25 mg/dL [facility] ([place]) Creatinine 0.89 0.60 - 1.10 mg/dL [facility] ([place]) Glucose 186 70 - 199 mg/dL [facility] ([place]) [...] Calcium 8.8 8.5 - 10.3 mg/dL [facility] ([place]) Bilirubin, total 0.2 0.1 - 1.2 mg/dL [facility] ([place]) Protein, pl 6.1(L) 6.5 - 8.5 g/dL [facility] ([place]) Albumin 3.3(L) 3.5 - 5.0 g/dL [facility] ([place]) Alk phos 150(H) 40 - 130 Units/L [facility] ([place]) ALT 30 7 - 45 Units/L [facility] ([place]) AST 14 10 - 45 Units/L [facility] ([place]) Blood 05/29/2025 9:17 AM CDT 05/29/2025 9:25 AM CDT Beverly Goff DO LAB BLOOD ORDERABLES Fin al Result DARINEL RICHTER (KIRKLIN) 1 [facility] [place] [place] [address] * POCT glucose (05/29/2025 8:07 AM CDT) Glucose, POC 105 70 - 199 mg/dL Blood 05/29/2025 8:07 AM CDT 05/29/2025 8:07 AM CDT Beverly Goff DO LAB POCT ORDERABLES - DE VICE Final Result DARINEL RICHTER (KIRKLIN) 1 [facility] [place] [place] [address] * POCT glucose (05/29/2025 2:11 AM CDT) Glucose, POC 119 70 - 199 mg/dL Blood 05/29/2025 2:11 AM CDT 05/29/2025 2:11 AM CDT Beverly Goff DO LAB POCT ORDERABLES - DE VICE Final Result DARINEL RICHTER (KIRKLIN) 1 [facility] [place] [address] * POCT glucose (05/28/2025 11:05 PM CDT) Glucose, POC 121 70 - 199 mg/dL Blood 05/28/2025 11:0 5 PM CDT 05/28/2025 11:05 PM CDT Beverly Nida Denver DO LAB POCT ORDERABLES - DE VICE Final Result Performing Organization Address [facility]/ZIP Co de Phone Number DARINEL RICHTER (KIRKLIN) 1 [facility] [place] [email or web address] [address] * POCT glucose (05/28/2025 4:39 PM CDT) Glucose, POC 127 70 - 199 mg/dL Blood 05/28/2025 4:39 PM CDT 05/28/2025 4:39 PM CDT Beverly Goff DO LAB POCT ORDERABLES - DE VICE Final Result Performing Organization Address [facility] Co de Phone Number DARINEL RICHTER (KIRKLIN) 1 [facility] [email or web address] [address] * POCT glucose (05/28/2025 11:59 AM CDT) Glucose, POC 183 70 - 199 mg/dL Blood 05/28/2025 11:5 9 AM CDT 05/28/2025 11:59 AM CDT Beverly Nida Rolyjaron DO LAB POCT ORDERABLES - DE VICE Final Result Performing Organization Address City/[facility] Co de Phone Number [facility]EL [facility] ([place]KLIN) 1 [facility] [email or web address] [address] * POCT glucose (05/28/2025 8:34 AM CDT) Glucose, POC 143 70 - 199 mg/dL Blood 05/28/2025 8:34 AM CDT 05/28/2025 8:34 AM CDT Beverly Goff DO LAB POCT ORDERABLES - DE VICE Final Result DARINEL RICHTER (KIRKLIN) 1 [facility] [email or web address] [address] * POCT glucose (05/28/2025 7:54 AM CDT) Glucose, POC 126 70 - 199 mg/dL Blood 05/28/2025 7:54 AM CDT 05/28/2025 7:54 AM CDT Beverly Goff DO LAB POCT ORDERABLES - DE VICE Final Result Performing Organization Address [facility] Co de Phone Number DARINEL RICHTER (KIRKLIN) 1 [facility] [place] [address] * eGFR (05/28/2025 4:27 AM CDT) eGFR 68 >=60 mL/min/1. 73 m2 Comment: Interpretive Data [...] interpretive data was last reviewed 2021. Blood 05/28/2025 4:27 AM CDT 05/28/2025 5:12 AM CDT Beverly Goff DO LAB BLOOD ORDERABLES Fin al Result DARINEL RICHTER (KIRKLIN) 1 [facility] [place] [address] * (ABNORMAL) Differential, auto (05/28/2025 4:27 AM CDT) Neutrophil abs 7.84(H) 1.50 - 6.50 K/cumm Imm gran abs 0.09 0.00 - 0.10 K/cumm [facility] ([place]) Lymphocyte abs 3.04 0.80 - 3.30 K/cumm [facility] ([place]) Monocyte abs 1.00(H) 0.20 - 0.80 K/cumm [facility] ([place]) Eosinophil abs 0.83(H) 0.00 - 0.50 K/cumm [facility] ([place]) Basophil abs 0.10 0.00 - 0.10 K/cumm [facility] ([place]) Neutrophil pct 60.7 % [facility] ([place]) Comment: Interpretive Data Percent cell count reference ranges are not reported, since discordance with absolute values may lead to misinterpretation of CBC data. Current Interpretive Data was last revised on 2018. Imm gran pct 0.7 % [facility] ([place]) Comment: Interpretive Data Percent cell count reference ranges are not reported, since discordance with absolute values may lead to misinterpretation of CBC data. Current Interpretive Data was last revised on 2018. Lymphocyte pct 23.6 % [facility] ([place]) Comment: Interpretive Data Percent cell count reference ranges are not reported, since discordance with absolute values may lead to misinterpretation of CBC data. Current Interpretive Data was last revised on 2018. Monocyte pct 7.8 % [facility] ([place]) Comment: Interpretive Data Percent cell count reference ranges are not reported, since discordance with absolute values may lead to misinterpretation of CBC data. Current Interpretive Data was last revised on 2018. Eosinophil pct 6.4 % [facility] ([place]) Comment: Interpretive Data Percent cell count reference ranges are not reported, since discordance with absolute values may lead to misinterpretation of CBC data. Current Interpretive Data was last revised on 2018. Basophil pct 0.8 % [facility] ([place]) Comment: Interpretive Data Percent cell count reference ranges are not reported, since discordance with absolute values may lead to misinterpretation of CBC data. Current Interpretive Data was last revised on 2018. Blood 05/28/2025 4:27 AM CDT 05/28/2025 5:12 AM CDT Beverly Goff DO LAB BLOOD ORDERABLES Fin al Result Performing Organization Address City/State/[facility] Co de Phone Number [facility]INEL [facility] ([place]) 1 [facility] [place] [address] * (ABNORMAL) CBC with auto differential (05/28/2025 4:27 AM CDT) WBC 12.90(H) 3.80 - 9.90 K/cumm Hgb 12.2 11.9 - 15.5 g/dL [facility] ([place]) Hct 36.9 35.6 - 45.5 % [facility] ([place]) Plt 352 150 - 400 K/cumm [facility] ([place]) MPV 9.9 9.1 - 12.3 fL [facility] ([place]) RBC 4.39 3.90 - 5.20 M/cumm [facility] ([place]) MCV 84.1 81.3 - 96.4 fL [facility] ([place]) MCH 27.8 27.1 - 33.3 pg [facility] ([place]) MCHC 33.1 32.3 - 35.7 g/dL [facility] ([place]) RDW CV 15.2(H) 11.1 - 14.9 % [facility] ([place]) RDW SD 46.5 35.7 - 48.1 fL [facility] [facility] ([place]) NRBC abs 0.00 0.00 - 0.01 K/cumm [facility] ([place]) Blood 05/28/2025 4:27 AM CDT 05/28/2025 5:12 AM CDT Beverly Goff DO LAB BLOOD ORDERABLES Fin al Result Performing Organization Address City/State/[facility] Co de Phone Number DARINEL RICHTER ([place]) 1 [facility] [email or web address] [address] * Phosphorus (05/28/2025 4:27 AM CDT) Pathologist [facility] Phosphorus, pl 2.6 2.3 - 4.5 mg/dL [facility] ([place]) Blood 05/28/2025 4:27 AM CDT 05/28/2025 5:12 AM CDT Beverly Goff DO LAB BLOOD ORDERABLES Fin al Result Performing Organization Address [facility] Co de Phone Number DARINEL RICHTER ([place]) 1 [email or web address] [address] * Magnesium (05/28/2025 4:27 AM CDT) [facility] Magnesium 1.4 1.4 - 2.5 mg/dL [facility] ([place]) Blood 05/28/2025 4:27 AM CDT 05/28/2025 5:12 AM CDT Beverly Goff DO LAB BLOOD ORDERABLES Fin al Result Performing Organization Address [facility] de Phone Number DARINEL RICHTER ([place]) 1 [email or web address] [address] * (ABNORMAL) Comprehensive metabolic panel (05/28/2025 4:27 AM CDT) Pathologist [facility] Sodium 139 135 - 145 mmol/L [facility] ([place]) Potassium, pl 3.5 3.3 - 4.9 mmol/L [facility] ([place]) Chloride 110 97 - 110 mmol/L [facility] CO2 13(L) 22 - 32 mmol/L [facility] ([place]) Anion gap 16(H) 2 - 15 mmol/L [facility] ([place]) BUN 12 6 - 25 mg/dL [facility] ([place]) Creatinine 0.91 0.60 - 1.10 mg/dL [facility] ([place]) Glucose 122 70 - 199 mg/dL [facility] ([place]) [...] interpretive data was last revised 2022. Calcium 8.7 8.5 - 10.3 mg/dL [facility] ([place]) Bilirubin, total 0.3 0.1 - 1.2 mg/dL [facility] ([place]) Protein, pl 6.4(L) 6.5 - 8.5 g/dL [facility] ([place]) Albumin 3.3(L) 3.5 - 5.0 g/dL [facility] ([place]) Alk phos 172(H) 40 - 130 Units/L [facility] ([place]) ALT 44 7 - 45 Units/L [facility] ([place]) AST 29 10 - 45 Units/L [facility] ([place]) Blood 05/28/2025 4:27 AM CDT 05/28/2025 5:12 AM CDT Beverly Goff DO LAB BLOOD ORDERABLES Fin al Result DARINEL RICHTER ([place]) 1 [facility] [place] [address] * POCT glucose (05/28/2025 2:21 AM CDT) Glucose, POC 119 70 - 199 mg/dL Blood 05/28/2025 2:21 AM CDT 05/28/2025 2:21 AM CDT Beverly Goff DO LAB POCT ORDERABLES - DE VICE Final Result DARINEL RICHTER ([place]) 1 [facility] [email or web address] [address] * POCT glucose (05/27/2025 9:08 PM CDT) Glucose, POC 133 70 - 199 mg/dL Blood 05/27/2025 9:08 PM CDT 05/27/2025 9:08 PM CDT Beverly Goff DO LAB POCT ORDERABLES - DE VICE Final Result Performing Organization Address [facility]/ZIP Co de Phone Number DARINEL RICHTER ([place]) 1 [place] [address] * (ABNORMAL) Hemoglobin and hematocrit (05/27/2025 8:35 PM CDT) Hgb 11.1(L) 11.9 - 15.5 g/dL Hct 34.7(L) 35.6 - 45.5 % DARINEL RICHTER ([place]) Blood 05/27/2025 8:35 PM CDT 05/27/2025 8:38 PM CDT Narrative DARINEL RICHTER ([place]) - 05/27/2025 8:40 PM CDT Attempted x1. Pt. was extremely agitated and confused. Will give her some time and try recollection Beverly Goff DO LAB BLOOD ORDERABLES Fin al Result Performing Organization Address City/[facility]/ZIP Co de Phone Number DARINEL RICHTER ([place]) 1 [email or web address] [address] * POCT glucose (05/27/2025 5:09 PM CDT) Glucose, POC 116 70 - 199 mg/dL Blood 05/27/2025 5:09 PM CDT 05/27/2025 5:09 PM CDT Beverly Goff DO LAB POCT ORDERABLES - DE VICE Final Result Performing Organization Address City/[facility]/ZIP Co de Phone Number DARINEL RICHTER ([place]) 1 [facility] [place] [address] * (ABNORMAL) Hemoglobin and hematocrit (05/27/2025 3:43 PM CDT) Hgb 10.9(L) 11.9 - 15.5 g/dL Hct 34.3(L) 35.6 - 45.5 % DARINEL RICHTER ([place]) Blood 05/27/2025 3:43 PM CDT 05/27/2025 3:46 PM CDT Beverly Goff DO LAB BLOOD ORDERABLES Fin al Result Performing Organization Address [facility]/ZIP Co de Phone Number DARINEL RICHTER ([place]) 1 [place] [address] * POCT glucose (05/27/2025 12:02 PM CDT) Glucose, POC 118 70 - 199 mg/dL Blood 05/27/2025 12:0 2 PM CDT 05/27/2025 12:02 PM CDT Beverly Goff DO LAB POCT ORDERABLES - DE VICE Final Result Performing Organization Address [facility]/ZIP Co de Phone Number DARINEL RICHTER ([place]) 1 [facility] [email or web address] [address] * (ABNORMAL) Hemoglobin and hematocrit (05/27/2025 11:34 AM CDT) Hgb 9.4(L) 11.9 - 15.5 g/dL Hct 28.5(L) 35.6 - 45.5 % DARINEL RICHTER ([place]) Blood 05/27/2025 11:3 4 AM CDT 05/27/2025 11:45 AM CDT Beverly Goff DO LAB BLOOD ORDERABLES Fin al Result DARINEL RICHTER ([place]) 1 [facility] [place] [address] * XR Abdomen 1 View AP (05/27/2025 9:51 AM CDT) Anatomical Region Laterality Modality Body, Abdomen N/A Computed Radiogr aphy 05/27/2025 12:1 9 PM CDT Narrative 05/27/2025 12:20 PM CDT EXAM DESCRIPTION: XR ABDOMEN AP 1 VIEW REASON FOR STUDY: pain pain TECHNIQUE: Single radiographic view of the abdomen. COMPARISON: 05/26/2025 FINDINGS: There is no definite evidence of bowel obstruction. There is a small amount of air and fecal debris noted in the colon, which is likely within normal physiologic limits. There is no definite evidence of free air under the diaphragm within the limits of a supine projection. There are scattered vascular calcifications noted. There are multiple phleboliths noted overlying the pelvis. There is mild osteopenia with degenerative changes of the spine, bilateral sacroiliac joints, and bilateral hips. IMPRESSION: 1. No definite evidence of bowel obstruction. THIS IS AN ELECTRONICALLY VERIFIED FINAL REPORT 05/27/2025 12:20 PM - Electronically signed by Jacob Montague D.O. PS: PS Report ID: [id number] Reading Location: [place] [address] Procedure Note Jacob Montague DO - 05/27/2025 EXAM DESCRIPTION: XR ABDOMEN AP 1 VIEW REASON FOR STUDY: pain pain TECHNIQUE: Single radiographic view of the abdomen. COMPARISON: 05/26/2025 FINDINGS: There is no definite evidence of bowel obstruction. There is a smallamount of air and fecal debris noted in the colon, which is likely within normal physiologic limits. There is no definite evidence of free air under the diaphragm within the limits of a supine projection. There are scattered vascular calcifications noted. There are multiple phleboliths notedoverlying the pelvis. There is mild osteopenia with degenerative changes of thespine, bilateral sacroiliac joints, and bilateral hips. IMPRESSION: 1. No definite evidence of bowel obstruction. THIS IS AN ELECTRONICALLY VERIFIED FINAL REPORT 05/27/2025 12:20 PM - Electronically signed by Jacob Montague D.O. PS: SHERRELL Report ID: [id number] Reading Location: [id number] Beverly Goff DO IMG XR PROCEDURES Final Result * POCT glucose (05/27/2025 8:04 AM CDT) Glucose, POC 100 70 - 199 mg/dL Blood 05/27/2025 8:04 AM CDT 05/27/2025 8:04 AM CDT Beverly Goff DO LAB POCT ORDERABLES - DE VICE Final Result DARINEL RICHTER ([place]) 1 [facility] [place] [address] * (ABNORMAL) Fibro Test-Acti Test (05/27/2025 7:05 AM CDT) FibroTest Score 0.29 [place] ref Lab FibroTest Stage F1 RYANNE RICHTER ([place]) FibroTest Interpretation SEE BELOW DARINEL RICHTER ([place]) Comment: RESULT: minimal fibrosis FibroTest estimates liver fibrosis FibroTest Score Stage Interpretation 0.00-0.21 F0 no fibrosis 0.21-0.27 F0-F1 no fibrosis 0.27-0.31 F1 minimal fibrosis 0.31-0.48 F1-F2 minimal fibrosis 0.48-0.58 F2 moderate fibrosis 0.58-0.72 F3 advanced fibrosis 0.72-0.74 F3-F4 advanced fibrosis 0.74-1.00 F4 severe fibrosis (Cirrhosis) ActiTest Score 0.35 [facility]ERNE Pal [facility] ([place]) ActiTest Grade A1 CERNE R NEELAM ([place]) ActiTest Interpretation SEE BELOW DARINEL MCDERMOTT) Comment: RESULT: minimal activity ActiTest estimates necroinflammatory activity ActiTest Score Grade Interpretation 0.00-0.17 A0 no activity 0.17-0.29 A0-A1 no activity 0.29-0.36 A1 minimal activity 0.36-0.52 A1-A2 minimal activity 0.52-0.60 A2 significant activity 0.60-0.62 A2-A3 significant activity 0.62-1.00 A3 severe activity FibroTest-ActiTest Comment See Comment DARINEL RICHTER ([place]) Comment: The reliability of results is dependent on compliance with the preanalytical and analytical conditions recommended by [employer]. The tests have to be deferred for: acute hemolysis, acute hepatitis, acute inflammation, extra hepatic cholestasis. The advice of a specialist should be sought for interpretation in chronic hemolysis and Gilbert's syndrome. The test interpretation is not validated in liver transplant patients. Isolated extreme values of one of the components should lead to caution in interpreting the results. In case of discordance between a biopsy result and a test, it is recommended to seek advice of a specialist. The causes of these discordances could be due to a flaw of the test or to a flaw in the biopsy: i.e. a liver biopsy has a 33% variability rate for one fibrosis stage. FibroTest is interpretable for chronic hepatitis B and C, alcoholic and non alcoholic steatosis. ActiTest is interpretable for chronic hepatitis B and C. ADDITIONAL INFORMATION This test was developed and its performance characteristics determined by [facility] in a manner consistent with CLIA requirements. This test has not been cleared or approved by the U.S. Food and Drug Administration. [employer] Serial Number [id number] D[facility]INEL [facility] ([place]) APOLIPOPROTEIN A1 70(L) >=140 mg/dL [facility] ([place]) Mzlbj-1-Rujljliaefuwg, Ser 163 100 - 280 mg/dL [facility] ([place]) Haptoglobin, S 276(H) 30 - 200 mg/dL [facility] ([place]) Alanine Aminotransferase (ALT), S 60(H) 7 - 45 Units/L [facility] ([place]) Gamma Glutamyltransferase (GGT), S 80(H) 5 - 36 Units/L [facility] ([place]) Bilirubin, Total, S 0.3 0.0 - 1.2 mg/dL [facility] ([place]) Comment: Test Performed by: [facility] [address] [place] [address] Retail Director: Salvatore Larson Ph.D.; CLIA# [id number] Test Performed by: [facility] [address] [place] [address] Retail Director: Salvatore Larson Ph.D.; CLIA# [id number] Blood 05/27/2025 7:05 AM CDT 05/27/2025 7:15 AM CDT Brinda RIGGINS LAB BLOOD ORDERABLES Fin al Result [facility]INEL [facility] ([place]) 1 [facility] Department [place] [address] [place] ref Lab * ANOOP ab ql w/rflx to ANOOP qn (05/27/2025 7:05 AM CDT) ANOOP Negative Comment: Interpretive Data Normal range for ANOOP Qualitative Antibody = Negative. 1. ANOOP is performed using indirect immunofluorescence against HEp-2 cells 2. ANOOP titers are performed on all positive qualitative results. 3. A significantly positive ANOOP result is defined as a positive nuclear fluorescence at a titer of 1:80 or greater. 4. 15% of normal people above age 65 have significantly positive ANOOP results. 5% or less of normal people age 65 or under have significantly positive ANOOP results. Current interpretive data was last revised on 2020. Testing performed by: [facility], [address] [facility], [place]., [address] Blood 05/27/2025 7:05 AM CDT 05/27/2025 10:22 AM CDT Brinda RIGGINS LAB BLOOD ORDERABLES Fin al Result DARINEL RICHTER ([place]) 1 [facility] [place] [address] * (ABNORMAL) eGFR (05/27/2025 7:05 AM CDT) eGFR 50(L) >=60 mL/min/1. 73 m2 Comment: Interpretive Data [...] interpretive data was last reviewed 2021. Blood 05/27/2025 7:05 AM CDT 05/27/2025 7:13 AM CDT Beverly Goff DO LAB BLOOD ORDERABLES Fin al Result DARINEL RICHTER ([place]) 1 [facility] [place] [address] * (ABNORMAL) Differential, auto (05/27/2025 7:05 AM CDT) Neutrophil abs 7.77(H) 1.50 - 6.50 K/cumm Imm gran abs 0.08 0.00 - 0.10 K/cumm [facility] ([place]) Lymphocyte abs 2.79 0.80 - 3.30 K/cumm [facility] ([place]) Monocyte abs 0.73 0.20 - 0.80 K/cumm [facility] ([place]) Eosinophil abs 0.78(H) 0.00 - 0.50 K/cumm [facility] ([place]) Basophil abs 0.07 0.00 - 0.10 K/cumm [facility] ([place]) Neutrophil pct 63.5 % [facility]NE R [facility] ([place]) Comment: Interpretive Data Percent cell count reference ranges are not reported, since discordance with absolute values may lead to misinterpretation of CBC data. Current Interpretive Data was last revised on 2018. Imm gran pct 0.7 % [facility] ([place]) Comment: Interpretive Data Percent cell count reference ranges are not reported, since discordance with absolute values may lead to misinterpretation of CBC data. Current Interpretive Data was last revised on 2018. Lymphocyte pct 22.8 % [facility] R [facility] ([place]) Comment: Interpretive Data Percent cell count reference ranges are not reported, since discordance with absolute values may lead to misinterpretation of CBC data. Current Interpretive Data was last revised on 2018. Monocyte pct 6.0 % [facility] ([place]) Comment: Interpretive Data Percent cell count reference ranges are not reported, since discordance with absolute values may lead to misinterpretation of CBC data. Current Interpretive Data was last revised on 2018. Eosinophil pct 6.4 % [facility] R [facility] ([place]) Comment: Interpretive Data Percent cell count reference ranges are not reported, since discordance with absolute values may lead to misinterpretation of CBC data. Current Interpretive Data was last revised on 2018. Basophil pct 0.6 % [facility] ([place]) Comment: Interpretive Data Percent cell count reference ranges are not reported, since discordance with absolute values may lead to misinterpretation of CBC data. Current Interpretive Data was last revised on 2018. Blood 05/27/2025 7:05 AM CDT 05/27/2025 7:13 AM CDT us Beverly Goff DO LAB BLOOD ORDERABLES Fin al Result DARINEL NEELAM ([place]) 1 [facility] Department [place] [address] * Smooth muscle antibody, qualitative (05/27/2025 7:05 AM CDT) Anti-smooth muscle Negative Negative Comment:Testing performed by : [facility], [address] [place] [address], [id number] Blood 05/27/2025 7:05 AM CDT 05/27/2025 10:24 AM CDT Brinda RIGGINS LAB BLOOD ORDERABLES Fin al Result D[facility]INEL [facility] ([place]) 1 [facility] [email or web address] [address] * Mitochondrial antibodies, qualitative (05/27/2025 7:05 AM CDT) Anti-mitochond rial Negative Negative Comment:Testing performed by : [facility], [address] [place] [address], [id number] Blood 05/27/2025 7:05 AM CDT 05/27/2025 10:24 AM CDT Brinda RIGGINS LAB BLOOD ORDERABLES Fin al Result Performing Organization Address City/[facility]/ZIP Co de Phone Number DARINEL [facility] ([place]) 1 [facility] [email or web address] [address] * (ABNORMAL) Iron profile w/ IBC (05/27/2025 7:05 AM CDT) Iron 113 35 - 145 mcg/dL TIBC 171(L) 250 - 400 mcg/dL [facility] ([place]) Transferrin saturation 66(H) 20 - 50 % [facility] ([place]) Blood 05/27/2025 7:05 AM CDT 05/27/2025 7:13 AM CDT Brinda RIGGINS LAB BLOOD ORDERABLES Fin al Result [facility] ([place]) 1 [facility] Department [place] [address] * CMV, IgG and IgM antibodies Blood (05/27/2025 7:05 AM CDT) [facility] CMV IgG Negative Negative Comment: Interpretive Data Negative - Individuals with negative CMV IgG results are presumed to not have had prior exposure or infection with CMV and are, therefore, considered susceptible to primary infection. Equivocal - Equivocal results may occur during acute infection or may be due to nonspecific binding reactions. Submit an additional sample for testing if clinically indicated. Positive - Indicates presence of detectable CMV IgG antibody. Results indicate past or recent CMV infection. Testing performed by: [facility], [address] [place] [address]., [id number] CMV IgM Negative Negative [facility] ([place]) Comment: Interpretive Data Negative - Negative CMV IgM results suggests that the patient is not experiencing acute or active infection. However, a negative result does not rule-out primary CMV infection. Equivocal - Equivocal results may occur during acute infection or may be due to nonspecific binding reactions. Submit an additional sample for testing if clinically indicated. Positive - Positive CMV IgM results may indicate a recent infection (primary, reactivation, or reinfection). Testing performed by: [facility], [address] [place] [address]., [id number] Blood 05/27/2025 7:05 AM CDT 05/27/2025 10:17 AM CDT Brinda RIGGINS LAB MICROBIOLOGY - [facility] AL ORDERABLES Final Result DARINEL RICHTER ([place]) 1 [facility] Department [place] [address] * (ABNORMAL) CBC with auto differential (05/27/2025 7:05 AM CDT) [facility] WBC 12.22(H) 3.80 - 9.90 K/cumm Hgb 9.8(L) 11.9 - 15.5 g/dL DARINEL RICHTER ([place]) Hct 29.8(L) 35.6 - 45.5 % [facility] ([place]) Plt 263 150 - 400 K/cumm [facility] ([place]) MPV 10.0 9.1 - 12.3 fL [facility] ([place]) RBC 3.50(L) 3.90 - 5.20 M/cumm [facility] ([place]) MCV 85.1 81.3 - 96.4 fL [facility] ([place]) MCH 28.0 27.1 - 33.3 pg [facility] ([place]) MCHC 32.9 32.3 - 35.7 g/dL [facility] ([place]) RDW CV 15.4(H) 11.1 - 14.9 % [facility] ([place]) RDW SD 47.8 35.7 - 48.1 fL [facility] ([place]) NRBC abs 0.00 0.00 - 0.01 K/cumm [facility] ([place]) Blood 05/27/2025 7:05 AM CDT 05/27/2025 7:13 AM CDT Beverly Goff DO LAB BLOOD ORDERABLES Fin al Result [facility] ([place]) 1 [facility] Department of Laboratories [place], [place] [id number] * (ABNORMAL) Willa-Chavez virus (EBV) antibody panel Blood (05/27/2025 7:05 AM CDT) EBV nuclear Ab Positive(A) Negative Comment: Indicates the presence of detectable IgG antibody to EBV Nuclear Antigen. Testing performed by: [facility], [address] [place] [address], [place] [address] EBV VCA IgG Positive(A) Negative [facility] ([place]) Comment: Indicates the presence of antibody; 90% of the adult population will have been infected with EBV sometime in the past. Testing performed by: [facility], [address] [place] [address], [place]., [address] EBV VCA IgM Negative Negative [facility] ([place] Comment: No detectable IgM antibody to EBV-VCA. A negative result indicates no current infection with EBV. If clinical suspicion of acute EBV infection is present, testing should be repeated after one week. Testing performed by: [facility], [address] [place]., [address] EBV interp Past Infection DARINEL RICHTER ([place]) Comment:Testing performed by : [facility], [address] [place]., [address] Blood 05/27/2025 7:05 AM CDT 05/27/2025 10:17 AM CDT Brinda RIGGINS LAB MICROBIOLOGY - GENER AL ORDERABLES Final Result DARINEL RICHTER ([place]) 1 [facility] [employer] [address] * Celiac reflex panel (05/27/2025 7:05 AM CDT) Pathologist [facility] IgA 62 61 - 356 mg/dL [place] ref Lab Celiac disease interpretation See Comment DAIRNEL RICHTER ([place]) Comment: See Comment: Negative serology. Celiac disease unlikely. However, approximately 10% of patients with celiac disease are seronegative. Also, patients who are already adhering to a gluten-free diet may be seronegative. If celiac disease is highly clinically suspected, consider HLA-DQ typing. Test Performed by: [facility] [address] [place] [address] Retail Director: Salvatore Larson Ph.D.; CLIA# [id number] Blood 05/27/2025 7:05 AM CDT 05/27/2025 7:13 AM CDT Brinda RIGGINS LAB BLOOD ORDERABLES Fin al Result DARINEL RICHTER ([place]) 1 [facility] [place] [address] [place] ref Lab * (ABNORMAL) Qsgsc-6-wzqqetucyud (05/27/2025 7:05 AM CDT) alpha-1 antitrypsin 208(H) 90 - 200 mg/dL Comment:Testing performed by : [facility], [address] [place] [address]., [id number] Blood 05/27/2025 7:05 AM CDT 05/27/2025 10:22 AM CDT Brinda RIGGINS LAB BLOOD ORDERABLES Fin al Result Performing Organization Address City/[facility]/ZIP Co de Phone Number DARINEL [facility] ([place]) 1 [facility] [email or web address] [address] * Tissue transglutaminase IgA (TGG-IgA Ab) (05/27/2025 7:05 AM CDT) TTG ab, IgA <1.2 <4.0 (Negative) units/mL Comment: Test Performed by: [facility] [address] [place] [address] Retail Director: Salvatore Larson Ph.D.; CLIA# [id number] Interpretive data Negative: <15 units/mL Positive: > or equal to 15 units/mL Current interpretive data was last revised on 2017. Testing performed by: [facility], [address] [place] [address], [place]., [address] Blood 05/27/2025 7:05 AM CDT 05/27/2025 7:13 AM CDT Brinda RIGGINS LAB BLOOD ORDERABLES Fin al Result [facility]INEL [facility] ([place]) [address] [place] [address] * Ceruloplasmin (05/27/2025 7:05 AM CDT) Ceruloplasmin 32.8 16.0 - 45.0 mg/dL Comment:Testing performed by : [facility], [address] [place] [address], [place]., [address] Blood 05/27/2025 7:05 AM CDT 05/27/2025 10:22 AM CDT Brinda RIGGINS LAB BLOOD ORDERABLES Fin al Result Performing Organization Address [facility] Co de Phone Number DARINEL BermudezISABELLE) 1 [facility] [email or web address] [address] * Zlyyk-0-Sszvbtagnrx, Tumor Marker (05/27/2025 7:05 AM CDT) alpha Fetoprotein <2.0 <=8.3 ng/mL Comment: Interpretive Data The Lucila AFP assay procedure was used. Results from different manufacturers or methods may not be comparable. Serial testing should be performed using the same method. 0-1 month. AFP concentrations may reach or exceed 100,000 ng/mL after depending on gestational age and weight. 1-3 months 50 1000 ng/ml 3-6 months 10 500 ng/ml 6-12 months 3.0 100 ng/ml >1 year 0.0 8.3 ng/ml References Nikky Y. et al. J. Ped Surg 1978;13:155-156 Redd Najera. et al. Clin Chem Lab Med 2018;57:783-797 Joe Hammond. et al. Clin Chem 2014;[id number]. Current interpretive data was last revised 2022. Testing performed by: [facility], [address] [place] [address] Blood 05/27/2025 7:05 AM CDT 05/27/2025 10:22 AM CDT Brinda RIGGINS LAB BLOOD ORDERABLES Fin al Result Performing Organization Address City/[facility] Co de Phone Number DARINEL RICHTER ([place]) 1 [email or web address] [address] * Hepatitis panel, acute Blood (05/27/2025 7:05 AM CDT) Hep A IgM Nonreactive Nonreactive Comment: Interpretive Data: If Hep A IgM Ab is reported as Equivocal, a new sample should be drawn in two weeks for testing. Current interpretive data was last revised on 20. Testing performed by: [facility], [address] [place] [address]., [address] Hep B core IgM Nonreactive Nonreactive C EDIS RICHTER ([place]) Comment: Interpretive Data If HepB Core IgM Ab is reported as Equivocal, a new sample should be drawn in two weeks for testing. Current interpretive data was last revised on 20. Testing performed by: [facility], [address] [place] [address]., [id number] Hep C Ab Nonreactive Nonreactive DARINEL RICHTER (ISABLELE) Comment: Interpretive Data Nonreactive: Antibodies to HCV not detected. Does NOT exclude the possibility of recent exposure to HCV. Equivocal: Equivocal for HCV antibodies. Supplemental molecular testing will be automatically performed to determine infection status in accordance with current CDC screening recommendations. Reactive: Positive for HCV antibodies. This may represent current or past HCV infection. Supplemental molecular testing will be automatically performed to determine current infection status in accordance with current CDC screening recommendations. Interpretive data was last revised on 2020. Testing performed by: [facility], [address] [place] [address]., [id number] HepBsAg Nonreactive Nonreactive DARINEL RICHTER (ISABELLE) Comment:Testing performed by : [address] [address] Blood 05/27/2025 7:05 AM CDT 05/27/2025 9:12 AM CDT Brinda RIGGINS LAB MICROBIOLOGY - [facility] AL ORDERABLES Final Result DARINEL RICHTER (ISABELLE) 1 [facility] Department [place] [address] * Phosphorus (05/27/2025 7:05 AM CDT) Phosphorus, pl 2.8 2.3 - 4.5 mg/dL Blood 05/27/2025 7:05 AM CDT 05/27/2025 7:13 AM CDT us Beverly Alva Denver DO LAB BLOOD ORDERABLES Fin al Result DARINEL RICHTER (KIRKLIN) 1 [facility] [email or web address] [address] * Magnesium (05/27/2025 7:05 AM CDT) Magnesium 1.7 1.4 - 2.5 mg/dL Blood 05/27/2025 7:05 AM CDT 05/27/2025 7:13 AM CDT Beverly Alva Rolyjaron DO LAB BLOOD ORDERABLES Fin al Result Performing Organization Address [facility] de Phone Number DARINEL RICHTER (KIRKLIN) 1 [facility] [place] [email or web address] [address] * Folate (05/27/2025 7:05 AM CDT) Folic acid 15.3 >=5.0 ng/mL Comment:Slightly Hemolyzed S pecimen. Results may be affected. Blood 05/27/2025 7:05 AM CDT 05/27/2025 7:13 AM CDT Brinda RIGGINS LAB BLOOD ORDERABLES Fin al Result Performing Organization Address [facility] Co de Phone Number DARINEL RICHTER (KIRKLIN) 1 [facility] [place] [address] * Vitamin B12 (05/27/2025 7:05 AM CDT) Vitamin B12 649 230 - 1,250 pg/mL Blood 05/27/2025 7:05 AM CDT 05/27/2025 7:13 AM CDT Brinda RIGGINS LAB BLOOD ORDERABLES Fin al Result DARINEL RICHTER (KIRKLIN) 1 [facility] [place] [address] * (ABNORMAL) Comprehensive metabolic panel (05/27/2025 7:05 AM CDT) Sodium 138 135 - 145 mmol/L Potassium, pl 2.8(C) 3.3 - 4.9 mmol/L [facility] (ISABELLE) Comment:Critical Result call ed by [id number] at 2025-05-27 08:20:15. Result Read Back by Elizabeth Ramirez/coco Chloride 110 97 - 110 mmol/L [facility] ([place]) CO2 11(L) 22 - 32 mmol/L [facility] ([place]) Anion gap 17(H) 2 - 15 mmol/L [facility] ([place]) BUN 20 6 - 25 mg/dL [facility] ([place]) Creatinine 1.18(H) 0.60 - 1.10 mg/dL [facility] ([place]) Glucose 102 70 - 199 mg/dL [facility] ([place]) [...] interpretive data was last revised 2022. Calcium 8.2(L) 8.5 - 10.3 mg/dL [facility] ([place]) Bilirubin, total 0.3 0.1 - 1.2 mg/dL [facility] ([place]) Protein, pl 5.3(L) 6.5 - 8.5 g/dL [facility] ([place]) Albumin 3.0(L) 3.5 - 5.0 g/dL [facility] ([place]) Alk phos 162(H) 40 - 130 Units/L [facility] ([place]) ALT 51(H) 7 - 45 Units/L [facility] ([place]) AST 38 10 - 45 Units/L [facility] ([place]) Blood 05/27/2025 7:05 AM CDT 05/27/2025 7:13 AM CDT Beverly Goff DO LAB BLOOD ORDERABLES Fin al Result DARINEL RICHTER (KIRKLIN) 1 [facility] [email or web address] [address] * POCT glucose (05/27/2025 2:11 AM CDT) Glucose, POC 116 70 - 199 mg/dL Blood 05/27/2025 2:11 AM CDT 05/27/2025 2:11 AM CDT Beverly Goff DO LAB POCT ORDERABLES - DE VICE Final Result DARINEL RICHTER (KIRKLIN) 1 [facility] [email or web address] [address] * Transfuse RBC (05/27/2025 12:20 AM CDT) Blood Beverly Goff DO BLOOD TRANSFUSION ORDERA BLES Final Result DARINEL RICHTER (KIRKLIN) 1 [facility] [email or web address] [address] * Transfuse RBC (05/26/2025 9:51 PM CDT) Blood Beverly Goff DO BLOOD TRANSFUSION ORDERA BLES Edited Result - Final DARINEL RICHTER (KIRKLIN) 1 [facility] [email or web address] [address] * POCT glucose (05/26/2025 9:30 PM CDT) Glucose, POC 111 70 - 199 mg/dL Blood 05/26/2025 9:30 PM CDT 05/26/2025 9:30 PM CDT Beverly Goff DO LAB POCT ORDERABLES - DE VICE Final Result DARINEL RICHTER (ISABELLE) 1 [facility] [email or web address] [address] * Vancomycin level trough (05/26/2025 7:51 PM CDT) Vancomycin trough 11.0 10.0 - 20.0 mcg/mL Blood 05/26/2025 7:51 PM CDT 05/26/2025 7:54 PM CDT us Maisha Ferrell MD LAB BLOOD ORDERABLES Fi nal Result Performing Organization Address [facility]/ZIP Co de Phone Number [facility] ([place]LE) 1 [facility] [email or web address] [address] * Prepare RBC: 2 Units (05/26/2025 5:40 PM CDT) Units requested 2 Units requested Ready [facility] ([place]AB[place]LE) Unit Number [id number] Product code [id number] [facility] ([place]) Blood Expiration Date [id number] [facility] ([place]) Product Blood Type (for scanning) 6200 [facility] ([place]LE) Product Blood Type APOS [facility] ([place]) Dispense Status DISPENSED [facility] ([place]) Unit Number [id number] Product code [id number] [facility] ([place]) Blood Expiration Date [id number] [facility] ([place]) Product Blood Type (for scanning) 6200 [facility] ([place]LE) Product Blood Type APOS [facility] ([place]) Dispense Status DISPENSED [facility] ([place]) Blood 05/26/2025 5:40 PM CDT 05/26/2025 5:40 PM CDT Beverly Goff DO BLOOD BANK PRODUCT ORDER ALLAN Final Result [facility] (ISABELLE) 1 [facility] [place] [address] * (ABNORMAL) Hemoglobin and hematocrit (05/26/2025 4:43 PM CDT) Hgb 6.4(C) 11.9 - 15.5 g/dL Comment:This result has been called to sara hogue [facility] by [id number] on 05/26/2025 17:14:05, and has been read back. Hct 19.9(L) 35.6 - 45.5 % DARINEL NEELAM (KIRKLIN) Blood 05/26/2025 4:43 PM CDT 05/26/2025 4:50 PM CDT Beverly Goff DO LAB BLOOD ORDERABLES Fin al Result DARINEL RICHTER (KIRKLIN) 1 [place] [address] * POCT glucose (05/26/2025 4:24 PM CDT) Glucose, POC 165 70 - 199 mg/dL Blood 05/26/2025 4:24 PM CDT 05/26/2025 4:24 PM CDT Beverly Goff DO LAB POCT ORDERABLES - DE VICE Final Result Performing Organization Address City/[facility]/ZIP Co de Phone Number DARINEL RICHTER (KIRKLIN) 1 [facility] [place] [email or web address] [address] * XR Abdomen 1 View AP (05/26/2025 3:03 PM CDT) Anatomical Region Laterality Modality Body, Abdomen N/A Computed Radiogr aphy 05/27/2025 1:13 AM CDT Narrative 05/27/2025 1:15 AM CDT EXAM DESCRIPTION: XR ABDOMEN AP 1 VIEW REASON FOR STUDY: assess fecal load Assess fecal load. TECHNIQUE: KUB COMPARISON: 05/24/2025 FINDINGS: BOWEL: Nonobstructive gas pattern. OTHER SOFT TISSUES: Unremarkable. BONES: Endplate osteophytes. IMPRESSION: Stool volume minimal. No acute abnormality identified. THIS IS AN ELECTRONICALLY VERIFIED FINAL REPORT 05/27/2025 1:15 AM - Electronically signed by Deep Quiles M.D. AR: AR Report ID: [id number] Reading Location: [id number] Procedure Note Deep Quiles MD - 05/27/2025 EXAM DESCRIPTION: XR ABDOMEN AP 1 VIEW REASON FOR STUDY: assess fecal load Assess fecal load. TECHNIQUE: KUB COMPARISON: 05/24/2025 FINDINGS: BOWEL: Nonobstructive gas pattern. OTHER SOFT TISSUES: Unremarkable. BONES: Endplate osteophytes. IMPRESSION: Stool volume minimal. No acute abnormality identified. THIS IS AN ELECTRONICALLY VERIFIED FINAL REPORT 05/27/2025 1:15 AM - Electronically signed by Deep Quiles M.D. AR: NORA Report ID: [id number] Reading Location: [id number] Brinda RIGGINS IMG XR PROCEDURES Final Result * (ABNORMAL) Hemoglobin and hematocrit (05/26/2025 12:01 PM CDT) [facility] Hgb 7.9(L) 11.9 - 15.5 g/dL Hct 24.3(L) 35.6 - 45.5 % DARINEL RICHTER (KIRKLIN) Blood 05/26/2025 12:0 1 PM CDT 05/26/2025 12:04 PM CDT Beverly Goff DO LAB BLOOD ORDERABLES Fin al Result DARINEL RICHTER (KIRKLIN) 1 [facility] [place] [address] * POCT glucose (05/26/2025 11:34 AM CDT) Glucose, POC 139 70 - 199 mg/dL Blood 05/26/2025 11:3 4 AM CDT 05/26/2025 11:34 AM CDT Beverly Goff LAB POCT ORDERABLES - DE VICE Final Result DARINEL RICHTER (ISABELLE) 1 [facility] [email or web address] [address] * ABO/Rh (05/26/2025 11:19 AM CDT) ABO/Rh A Positive Blood 05/26/2025 11:1 9 AM CDT 05/26/2025 11:32 AM CDT Narrative DARINEL NEELAM (ISABELLE) - 05/26/2025 12:09 PM CDT Has the patient had Daratumumab or Isatuximab in the past 6 months?->Unknown Beverly Goff [facility] BLOOD BANK TEST ORDE RABLES Final Result Performing Organization Address City/[facility]/ZIP Co de Phone Number DARINEL RICHTER (KIRKLIN) [address] [place] [address] [email or web address] [address] * Crossmatch (05/26/2025 11:19 AM CDT) Crossmatch Compatible CERNER A (KIRKLIN) Unit number for crossmatch [id number] [facility] (KIRKLIN) Crossmatch Compatible [facility] A [facility] (ISABELLE) Unit number for crossmatch [id number] [facility] (ISABELLE) Blood 05/26/2025 11:1 9 AM CDT 05/26/2025 11:32 AM CDT Beverly Goff LAB BLOOD BANK TEST ORDE RABLES Final Result DARINEL [facility] (ISABELLE) 1 [facility] [email or web address] [address] * Antibody screen (05/26/2025 11:19 AM CDT) Meeta, indirect, Gel Interpretation Negative ABSC Blood 05/26/2025 11:1 9 AM CDT 05/26/2025 11:32 AM CDT Narrative DARINEL RICHTER (ISABELLE) - 05/26/2025 12:09 PM CDT Has the patient had Daratumumab or Isatuximab in the past 6 months?->Unknown [employer] LAB BLOOD BANK TEST ORDE RABLES Final Result DARINEL RICHTER (ISABELLE) 1 [facility] [place] [address] * POCT glucose (05/26/2025 8:00 AM CDT) Glucose, POC 166 70 - 199 mg/dL Blood 05/26/2025 8:00 AM CDT 05/26/2025 8:00 AM CDT [employer] DO LAB POCT ORDERABLES - DE VICE Final Result DARINEL RICHTER (KIRKLIN) 1 [facility] [employer] [email or web address] [address] * (ABNORMAL) eGFR (05/26/2025 5:18 AM CDT) eGFR 49(L) >=60 mL/min/1. 73 m2 [...] interpretive data was last reviewed 2021. Blood 05/26/2025 5:18 AM CDT 05/26/2025 6:11 AM CDT Beverly Goff DO LAB BLOOD ORDERABLES Fin al Result [facility] ([place]LIN) 1 [facility] Department [place] [address] * (ABNORMAL) Differential, auto (05/26/2025 5:18 AM CDT) Neutrophil abs 10.48(H) 1.50 - 6.50 K/cumm Imm gran abs 0.16(H) 0.00 - 0.10 K/cumm [facility] ([place]) Lymphocyte abs 2.77 0.80 - 3.30 K/cumm [facility] ([place]) Monocyte abs 0.86(H) 0.20 - 0.80 K/cumm [facility] ([place]) Eosinophil abs 0.60(H) 0.00 - 0.50 K/cumm [facility] ([place]) Basophil abs 0.05 0.00 - 0.10 K/cumm [facility] ([place]) Neutrophil pct 70.2 % [facility] ([place]) Comment: Interpretive Data Percent cell count reference ranges are not reported, since discordance with absolute values may lead to misinterpretation of CBC data. Current Interpretive Data was last revised on 2018. Imm gran pct 1.1 % [facility] (ISABELLE) Comment: Interpretive Data Percent cell count reference ranges are not reported, since discordance with absolute values may lead to misinterpretation of CBC data. Current Interpretive Data was last revised on 2018. Lymphocyte pct 18.6 % [facility] (ISAB[place]LE) Comment: Interpretive Data Percent cell count reference ranges are not reported, since discordance with absolute values may lead to misinterpretation of CBC data. Current Interpretive Data was last revised on 2018. Monocyte pct 5.8 % [facility] (ISABELLE) Comment: Interpretive Data Percent cell count reference ranges are not reported, since discordance with absolute values may lead to misinterpretation of CBC data. Current Interpretive Data was last revised on 2018. Eosinophil pct 4.0 % [facility] (ISABELLE) Comment: Interpretive Data Percent cell count reference ranges are not reported, since discordance with absolute values may lead to misinterpretation of CBC data. Current Interpretive Data was last revised on 2018. Basophil pct 0.3 % [facility] (ISABELLE) Comment: Interpretive Data Percent cell count reference ranges are not reported, since discordance with absolute values may lead to misinterpretation of CBC data. Current Interpretive Data was last revised on 2018. Blood 05/26/2025 5:18 AM CDT 05/26/2025 6:10 AM CDT Beverly Goff DO LAB BLOOD ORDERABLES Fin al Result [facility] ([place]ABELLE) 1 [facility] [place] [address] * (ABNORMAL) CBC with auto differential (05/26/2025 5:18 AM CDT) WBC 14.92(H) 3.80 - 9.90 K/cumm Hgb 7.5(L) 11.9 - 15.5 g/dL [facility] ([place]) Hct 22.6(L) 35.6 - 45.5 % [facility] ([place]) Plt 226 150 - 400 K/cumm [facility] ([place]) MPV 10.2 9.1 - 12.3 fL [facility] ([place]) RBC 2.61(L) 3.90 - 5.20 M/cumm [facility] ([place]) MCV 86.6 81.3 - 96.4 fL [facility] ([place]) MCH 28.7 27.1 - 33.3 pg [facility] ([place]) MCHC 33.2 32.3 - 35.7 g/dL [facility] ([place]) RDW CV 14.0 11.1 - 14.9 % DARINEL RICHTER (KIRKLIN) RDW SD 43.8 35.7 - 48.1 fL DARINEL RICHTER (KIRKLIN) NRBC abs 0.00 0.00 - 0.01 K/cumm DARINEL [facility] (KIRKLIN) Blood 05/26/2025 5:18 AM CDT 05/26/2025 6:10 AM CDT [employer] DO LAB BLOOD ORDERABLES Fin al Result DARINEL RICHTER (KIRKLIN) 1 [facility] [email or web address] [address] * Phosphorus (05/26/2025 5:18 AM CDT) Phosphorus, pl 2.6 2.3 - 4.5 mg/dL Blood 05/26/2025 5:18 AM CDT 05/26/2025 6:11 AM CDT [facility] [employer] DO LAB BLOOD ORDERABLES Fin al Result Performing Organization Address City/[facility] Co de Phone Number DARINEL RICHTER (KIRKLIN) 1 [facility] [email or web address] [address] * Magnesium (05/26/2025 5:18 AM CDT) Magnesium 1.9 1.4 - 2.5 mg/dL Blood 05/26/2025 5:18 AM CDT 05/26/2025 6:11 AM CDT [facility] [place] DO LAB BLOOD ORDERABLES Fin al Result Performing Organization Address City/[facility]/ZIP Co de Phone Number DARINEL RICHTER (KIRKLIN) 1 [facility] [place] [email or web address] [address] * (ABNORMAL) Comprehensive metabolic panel (05/26/2025 5:18 AM CDT) Sodium 135 135 - 145 mmol/L Potassium, pl 3.2(L) 3.3 - 4.9 mmol/L [facility] ([place]LE) Chloride 107 97 - 110 mmol/L [facility] ([place]) CO2 12(L) 22 - 32 mmol/L [facility] ([place]) Anion gap 16(H) 2 - 15 mmol/L [facility] ([place]) BUN 23 6 - 25 mg/dL [facility] ([place]) Creatinine 1.19(H) 0.60 - 1.10 mg/dL [facility] ([place]) Glucose 148 70 - 199 mg/dL [facility] ([place]LE) [...] interpretive data was last revised 2022. Calcium 8.2(L) 8.5 - 10.3 mg/dL [facility] ([place]) Bilirubin, total 0.2 0.1 - 1.2 mg/dL [facility] ([place]) Protein, pl 4.8(L) 6.5 - 8.5 g/dL [facility] ([place]) Albumin 2.8(L) 3.5 - 5.0 g/dL [facility] ([place]) Alk phos 173(H) 40 - 130 Units/L [facility] ([place]) ALT 73(H) 7 - 45 Units/L [facility] ([place]) AST 74(H) 10 - 45 Units/L [facility] ([place]) Blood 05/26/2025 5:18 AM CDT 05/26/2025 6:11 AM CDT us Beverly Goff DO LAB BLOOD ORDERABLES Fin al Result [facility] (ISAB[place]LE) 1 [facility] [place] [address] * POCT glucose (05/26/2025 2:59 AM CDT) Glucose, POC 160 70 - 199 mg/dL Blood 05/26/2025 2:59 AM CDT 05/26/2025 2:59 AM CDT Beverly Goff DO LAB POCT ORDERABLES - DE VICE Final Result DARINEL RICHTER (KIRKLIN) 1 [facility] [email or web address] [address] * (ABNORMAL) POCT glucose (05/25/2025 8:07 PM CDT) Glucose, POC 218(H) 70 - 199 mg/dL Blood 05/25/2025 8:07 PM CDT 05/25/2025 8:07 PM CDT Beverly Goff DO LAB POCT ORDERABLES - DE VICE Final Result DARINEL RICHTER (KIRKLIN) 1 [facility] [email or web address] [address] * POCT glucose (05/25/2025 4:52 PM CDT) Glucose, POC 148 70 - 199 mg/dL Blood 05/25/2025 4:52 PM CDT 05/25/2025 4:52 PM CDT Beverly Goff DO LAB POCT ORDERABLES - DE VICE Final Result DARINEL RICHTER (KIRKLIN) 1 [facility] [email or web address] [address] * POCT glucose (05/25/2025 11:49 AM CDT) Glucose, POC 143 70 - 199 mg/dL Blood 05/25/2025 11:4 9 AM CDT 05/25/2025 11:49 AM CDT Beverly Goff DO LAB POCT ORDERABLES - DE VICE Final Result Performing Organization Address [facility] Co de Phone Number DARINEL RICHTER (KIRKLIN) 1 [facility] [email or web address] [address] * POCT glucose (05/25/2025 8:05 AM CDT) Glucose, POC 134 70 - 199 mg/dL Blood 05/25/2025 8:05 AM CDT 05/25/2025 8:05 AM CDT Beverly Goff DO LAB POCT ORDERABLES - DE VICE Final Result Performing Organization Address [facility] Phone Number DARINEL RICHTER (KIRKLIN) 1 [facility] [email or web address] [address] * Thyroid Function [place]han (05/25/2025 6:17 AM CDT) TSH 1.92 0.30 - 4.20 mcIUnit/mL Blood 05/25/2025 6:17 AM CDT 05/25/2025 9:36 AM CDT Beverly Goff DO LAB BLOOD ORDERABLES Fin al Result Performing Organization Address [facility] Co de Phone Number DARINEL RICHTER (KIRKLIN) 1 [facility] [email or web address] [address] * (ABNORMAL) Sodium level (05/25/2025 6:17 AM CDT) Sodium 132(L) 135 - 145 mmol/L Blood 05/25/2025 6:17 AM CDT 05/25/2025 6:24 AM CDT Maisha Ferrell MD LAB BLOOD ORDERABLES Fi nal Result Performing Organization Address [facility]/State/ZIP Co de Phone Number DARINEL RICHTER (ISABELLE) 1 [facility] [place] [address] * POCT glucose (05/25/2025 2:57 AM CDT) Glucose, POC 110 70 - 199 mg/dL Blood 05/25/2025 2:57 AM CDT 05/25/2025 2:57 AM CDT us Kiley Kwok MD LAB POCT ORDERABLES - DEVICE Final Result Performing Organization Address [facility] de Phone Number DARINEL RICHTER (KIRKLIN) 1 [place] [address] * Strep pneumoniae antigen, urine Urine (05/25/2025 1:56 AM CDT) Pathologist [facility] S. pneumoniae Ag Negative Negative Comment: A negative result is a presumptive negative for pneumococcal pneumonia, suggesting no current or recent pneumococcal infection. Infection due to Streptococcus pneumoniae cannot be ruled out since the antigen present in the specimen may be below the detection limit of the test. Pneumococcal pneumonia is best diagnosed by a sputum culture. CAUTIONS: A negative result does not exclude Streptococcus pneumoniae infection. A diagnosis of Streptococcus pneumoniae infection must take into consideration all test results, culture results, and the clinical presentation of the patient. Interpretive Data A positive result is indicative of pneumococcal pneumonia in patients with severe CAP. Cross-reactivity with closely related Streptococcus bacteria may occur. A negative result suggests no current or recent pneumococcal infection but cannot rule out infection with S. pneumoniae. The results of this testing should be used in conjunction with clinical findings and other diagnostic testing, including microbiologic culture. Current Interpretive Data was last revised on 2023 Testing performed by: [facility], [id number] [place] [address], [place]., [address] Urine 05/25/2025 1:56 AM CDT 05/25/2025 11:18 AM CDT us Maisha Ferrell MD LAB MICROBIOLOGY - GENE RAL ORDERABLES Final Result Performing Organization Address City/[facility]/ZIP Co de Phone Number DARINEL RICHTER (KIRKLIN) 1 [facility] [place] [address] * Legionella antigen Urine (05/25/2025 1:56 AM CDT) Legionella Ag Negative Negative Comment: Interpretive Data This test detects only Legionella pneumophila serogroup 1 antigen. Current interpretive data was last revised on 2020. Testing performed by: [facility], [address] [place] [address]., [address] Urine 05/25/2025 1:56 AM CDT 05/25/2025 11:18 AM CDT Maisha Ferrell MD LAB MICROBIOLOGY - GENE RAL ORDERABLES Final Result DARINEL RICHTER (KIRKLIN) 1 [place] [address] * Sodium, urine, random (05/25/2025 1:56 AM CDT) Sodium, ur 29 mmol/L Comment: Interpretive Data No reference range established. Current interpretive data was last revised 2019. Urine 05/25/2025 1:56 AM CDT 05/25/2025 2:02 AM CDT Narrative DARINEL RICHTER (ISABELLE) - 05/25/2025 3:11 AM CDT No normal range Maisha Ferrell MD LAB URINE ORDERABLES Fi nal Result DARINEL RICHTER (KIRKLIN) 1 [facility] [place] [address] * Osmolality, urine (05/25/2025 1:56 AM CDT) Osmo, ur 425 mOsm/kg Comment:Testing performed by : [facility], [address] [place] [address], [place]., [address] Urine 05/25/2025 1:56 AM CDT 05/25/2025 12:11 PM CDT Maisha Ferrell MD LAB URINE ORDERABLES Fi nal Result DARINEL RICHTER (KIRKLIN) 1 [facility] [employer] [email or web address] [address] * (ABNORMAL) eGFR (05/25/2025 12:16 AM CDT) eGFR 52(L) >=60 mL/min/1. 73 m2 Comment: Interpretive Data [...] interpretive data was last reviewed 2021. Blood 05/25/2025 12:1 6 AM CDT 05/25/2025 12:44 AM CDT Maisha Ferrell MD LAB BLOOD ORDERABLES Fi nal Result DARINEL RICHTER (KIRKLIN) 1 [facility] Department [email or web address] [address] * (ABNORMAL) Differential, auto (05/25/2025 12:16 AM CDT) Neutrophil abs 18.61(H) 1.50 - 6.50 K/cumm Imm gran abs 0.16(H) 0.00 - 0.10 K/cumm [facility] ([place]) Lymphocyte abs 2.11 0.80 - 3.30 K/cumm [facility] ([place]) Monocyte abs 2.00(H) 0.20 - 0.80 K/cumm [facility] ([place]) Eosinophil abs 0.07 0.00 - 0.50 K/cumm [facility] ([place]) Basophil abs 0.07 0.00 - 0.10 K/cumm [facility] ([place]) Neutrophil pct 80.8 % [facility] ([place]) Comment: Interpretive Data Percent cell count reference ranges are not reported, since discordance with absolute values may lead to misinterpretation of CBC data. Current Interpretive Data was last revised on 2018. Imm gran pct 0.7 % [facility] ([place]) Comment: Interpretive Data Percent cell count reference ranges are not reported, since discordance with absolute values may lead to misinterpretation of CBC data. Current Interpretive Data was last revised on 2018. Lymphocyte pct 9.2 % [facility] ([place]) Comment: Interpretive Data Percent cell count reference ranges are not reported, since discordance with absolute values may lead to misinterpretation of CBC data. Current Interpretive Data was last revised on 2018. Monocyte pct 8.7 % [facility] ([place]) Comment: Interpretive Data Percent cell count reference ranges are not reported, since discordance with absolute values may lead to misinterpretation of CBC data. Current Interpretive Data was last revised on 2018. Eosinophil pct 0.3 % [facility] ([place]) Comment: Interpretive Data Percent cell count reference ranges are not reported, since discordance with absolute values may lead to misinterpretation of CBC data. Current Interpretive Data was last revised on 2018. Basophil pct 0.3 % [facility] ([place]) Comment: Interpretive Data Percent cell count reference ranges are not reported, since discordance with absolute values may lead to misinterpretation of CBC data. Current Interpretive Data was last revised on 2018. Blood 05/25/2025 12:1 6 AM CDT 05/25/2025 12:44 AM CDT Maisha Ferrell MD LAB BLOOD ORDERABLES Fi nal Result [facility] ([place]) 1 [facility] [employer] [email or web address] [address] * (ABNORMAL) CBC with auto differential (05/25/2025 12:16 AM CDT) WBC 23.02(H) 3.80 - 9.90 K/cumm Hgb 9.4(L) 11.9 - 15.5 g/dL [facility] ([place]) Hct 27.9(L) 35.6 - 45.5 % [facility] Plt 315 150 - 400 K/cumm [facility] MPV 9.9 9.1 - 12.3 fL [facility]) RBC 3.28(L) 3.90 - 5.20 M/cumm [facility] ([place]) MCV 85.1 81.3 - 96.4 fL [facility] ([place]) MCH 28.7 27.1 - 33.3 pg [facility] ([place]) MCHC 33.7 32.3 - 35.7 g/dL [facility] ([place]) RDW CV 13.8 11.1 - 14.9 % [facility] ([place]) RDW SD 42.5 35.7 - 48.1 fL [facility] ([place]) NRBC abs 0.00 0.00 - 0.01 K/cumm [facility] ([place]) Blood 05/25/2025 12:1 6 AM CDT 05/25/2025 12:44 AM CDT us Maisha Ferrell MD LAB BLOOD ORDERABLES Fi nal Result DARINEL RICHTER ([place]) 1 [facility] [employer] [place] [email or web address] [place] [address] * Magnesium (05/25/2025 12:16 AM CDT) Magnesium 1.5 1.4 - 2.5 mg/dL Blood 05/25/2025 12:1 6 AM CDT 05/25/2025 12:44 AM CDT us Maisha Ferrell MD LAB BLOOD ORDERABLES nal Result [facility] ([place]) 1 [facility] [place] [address] * (ABNORMAL) Comprehensive metabolic panel (05/25/2025 12:16 AM CDT) Sodium 134(L) 135 - 145 mmol/L Potassium, pl 3.8 3.3 - 4.9 mmol/L [facility] ([place]) Chloride 101 97 - 110 mmol/L [facility] ([place]) CO2 15(L) 22 - 32 mmol/L [facility] ([place]) Anion gap 18(H) 2 - 15 mmol/L [facility] ([place]) BUN 23 6 - 25 mg/dL [facility] ([place]) Creatinine 1.14(H) 0.60 - 1.10 mg/dL [facility] ([place]) Glucose 131 70 - 199 mg/dL [facility] ([place]) [...] Calcium 8.8 8.5 - 10.3 mg/dL [facility] ([place]) Bilirubin, total 0.3 0.1 - 1.2 mg/dL [facility] ([place]) Protein, pl 5.7(L) 6.5 - 8.5 g/dL [facility] ([place]) Albumin 3.4(L) 3.5 - 5.0 g/dL [facility] ([place]) Alk phos 191(H) 40 - 130 Units/L [facility] ([place]) ALT 86(H) 7 - 45 Units/L [facility] AST 90(H) 10 - 45 Units/L [facility] ([place]) Blood 05/25/2025 12:1 6 AM CDT 05/25/2025 12:44 AM CDT Maisha Ferrell MD LAB BLOOD ORDERABLES Fi nal Result Performing Organization Address [facility] de Phone Number ADRINEL RICHTER ([place]) 1 [facility] [place] [email or web address] [address] * Sodium level (05/25/2025 12:12 AM CDT) Sodium 135 135 - 145 mmol/L Blood 05/25/2025 12:1 2 AM CDT 05/25/2025 12:44 AM CDT Maisha Ferrell MD LAB BLOOD ORDERABLES Fi nal Result Performing Organization Address [facility] de Phone Number DARINEL R[facility]TER ([place]) 1 [facility] [place] [email or web address] [address] * CT CRITICAL CARE ILL/INJURED PATIENT INIT 30-74 MIN (05/24/2025 11:47 PM CDT) Narrative Doni Briceño MD - 05/24/2025 11:47 PM CDT Doni Briceño MD 05/24/2025 11:49 PM Critical Care Performed by: Doni Briceño MD Authorized by: Doni Briceño MD Critical care provider statement: As reflected in the history, physical exam, orders, notes, and/or MDM, I was personally present while the patient was critically ill and provided critical care services for 34 minutes, excluding time involved in separately billable procedures. Critical care was necessary to treat or prevent imminent or life-threatening deterioration of the following condition(s): unstable vital signs severe neurologic condition and encephalopathy sepsis Critical care was time spent by me providing the following: continuous telemetry, continuous pulse oximetry, continuous capnography, interpretation of bedside monitors, imaging, and arterial/venous lab draws, serial bedside patient exams, serial laboratory checks and resuscitation with fluids frequent neurologic exams and decision regarding acute lytic therapy empiric broad coverage antibiotics I provided emergent necessary critical care medicine [...] medical record. I admitted this patient to a continuous cardiac monitored bed. us Doni Briceño MD IN CLINIC/BEDSIDE ORDERABLE S Final Result * Influenza A/B, RSV, and COVID-19 PCR Nasopharyngeal (05/24/2025 10:30 PM CDT) COVID-19 RNA Negative Negative Influenza A RNA Negative Negative [facility] ([place]) Influenza B RNA [facility] Negative [facility] ([place]) RSV RNA Negative Negative [facility] ([place]) Comment: Interpretive data: Testing performed by [facility]. This test is performed using the [employer] Xpert Xpress CoV-2/Flu/RSV plus assay. This is a multiplex, real- time reverse transcriptase PCR assay intended for the qualitative detection of nucleic acid from SARS-CoV-2, influenza A, influenza B, and respiratory syncytial virus. This assay has been cleared by the [place] Food and Drug administration. The performance characteristics have been verified by the [facility]. Results must be considered in the clinical context, and a negative result does not rule out infection. Interpretive Data last revised 2023 Nasopharyngeal 05/24/2025 10 :30 PM CDT 05/24/2025 10:40 PM CDT Narrative [facility] ([place]) - 05/24/2025 11:24 PM CDT Is the Patient experiencing symptoms consistent with COVID?->Yes Maisha Ferrell MD LAB MICROBIOLOGY - GENE RAL ORDERABLES Final Result [facility] ([place]) 1 [facility] [place] [address] * (ABNORMAL) Sodium level (05/24/2025 8:55 PM CDT) Sodium 134(L) 135 - 145 mmol/L Blood 05/24/2025 8:55 PM CDT 05/24/2025 9:04 PM CDT us Maisha Ferrell MD LAB BLOOD ORDERABLES Fi nal Result DARINEL RICHTER ([place]) 1 [facility] [employer] [address] * POCT glucose (05/24/2025 8:53 PM CDT) Glucose, POC 132 70 - 199 mg/dL Blood 05/24/2025 8:53 PM CDT 05/24/2025 8:53 PM CDT us Kiley Kwok MD LAB POCT ORDERABLES - DEVICE Final Result Performing Organization Address City/[facility]/ZIP Co de Phone Number [facility] ([place]) 1 [facility] [employer] [place] [address] * Sepsis Lactate w/ Reflex (05/24/2025 5:26 PM CDT) Sepsis Lactate 1.7 0.7 - 2.0 mmol/L Blood 05/24/2025 5:26 PM CDT 05/24/2025 5:31 PM CDT us Doni Briceño MD LAB BLOOD ORDERABLES Final Result [facility] ([place]) 1 [facility] [employer] [address] * CT Chest Abdomen Pelvis W Contrast (05/24/2025 4:46 PM CDT) Anatomical Region Laterality Modality Body N/A Computed Tomogra phy 05/24/2025 5:18 PM CDT Narrative 05/24/2025 5:35 PM CDT EXAM DESCRIPTION: CT CHEST ABDOMEN PELVIS W CONTRAST REASON FOR STUDY: Sepsis Elevated wbc TECHNIQUE: CT scan of the chest, abdomen, and pelvis performed with intravenous and without oral contrast using helical scanning technique with dynamic intravenous contrast injection. Reconstructed coronal and sagittal MPR images reviewed. All images stored on PACS. Automated exposure control was used as a dose optimization technique for this examination. CONTRAST TYPE/DOSE: 75mL of IOVERSOL 350 MG IODINE/ML INTRAVENOUS SYRINGE injected via intravenous COMPARISON: 01/09/2025. FINDINGS: CHEST LUNGS: There is respiratory motion artifact on the examination. There is bibasilar atelectasis. Patchy opacities are seen in the lingula. There is likely a component of underlying fibrosis without honeycombing. Small nodule associated with the right major fissure 0.6 cm unchanged. PLEURA: No pleural effusion or pneumothorax. MEDIASTINUM/LOKI: Small sliding hiatal hernia. Subcarinal lymph node 1.3 x 1.2 cm (image 36). Low right paratracheal lymph node just anterior the right main bronchus 1.1 x 1.1 cm. These are similar to the prior study. There is a calcification in the right thyroid lobe 1.4 cm. HEART: Heart size is mildly enlarged. There is no pericardial effusion. VASCULATURE CHEST: Pulmonary arterial system is not well assessed, no obvious filling defect in the central pulmonary artery. Ascending thoracic aorta 3.0 cm, descending thoracic aorta 2.6 cm. AXILLA: No axillary lymphadenopathy. CHEST WALL: No chest wall mass or subcutaneous emphysema. HARDWARE/LINES/TUBES: None. MUSCULOSKELETAL CHEST: There is an incompletely healed distal right clavicular fracture slightly fragmented. Vertebral body height and alignment normal in the thoracic spine. No acute or aggressive osseous lesion. ABDOMEN/PELVIS LIVER: The liver is enlarged at 23.8 cm. There are no focal hepatic lesions. No focal hepatic lesion. Portal and hepatic veins are patent. GALLBLADDER: No gallstones or overt inflammatory change. BILE DUCTS: No biliary ductal dilation. SPLEEN: Spleen size normal. No focal splenic lesion. PANCREAS: No pancreatic mass or inflammatory change. ADRENALS: Normal KIDNEYS/URINARY TRACT: No right renal calculus. No left renal calculus. No ureteral calculus. No hydronephrosis or hydroureter. GI: There is prominent fecal material in the rectum there is some haziness surrounding the rectum suspicious for stercoral colitis. Prominent fecal material seen elsewhere in the colon. The terminal ileum and appendix are normal. Allowing for the hiatal hernia, the stomach and duodenal otherwise normal. No pneumatosis. PERITONEUM: No ascites or free air. Air no mesenteric mass or lymphadenopathy. RETROPERITONEUM: No retroperitoneal mass or lymphadenopathy. REPRODUCTIVE: Calcified uterine fibroid. There is a cystic structure right adnexa 1.5 cm. VASCULATURE ABDOMEN: Atheromatous calcified noncalcified plaque of the abdominal aorta and common iliac arteries without flow limiting stenosis. There is also prominent calcified plaque of the bilateral external iliac arteries and common femoral arteries, with more significant stenosis, estimated 60% stenosis of the left common femoral artery and 50% stenosis right common femoral artery. Atherosclerotic plaque extends into the superficial and deep femoral arteries bilaterally. MUSCULOSKELETAL ABDOMEN PELVIS: Bone windows demonstrate no acute or aggressive osseous abnormality. There is vacuum disc phenomena at L4-5. OTHER: No significant abnormality. IMPRESSION: 1. Prominent fecal material in the rectum with haziness surrounding the rectum suspicious for stercoral colitis. Prominent fecal material elsewhere in the colon evidence of constipation. 2. Patchy opacities in the lingula may be due to pneumonia. 3. Incompletely healed distal right clavicular fracture. 4. Mildly enlarged mediastinal lymph nodes are nonspecific but may be reactive. Three-month follow-up chest CT recommended. 5. Small sliding hiatal hernia. 6. Hepatomegaly. 7. 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 8. Calcified uterine fibroid. 9. Right adnexal cystic structure 1.5 cm. THIS IS AN ELECTRONICALLY VERIFIED FINAL REPORT 05/24/2025 5:35 PM - Electronically signed by Venancio Chua M.D. CH: DAGOBERTO Report ID: [id number] Reading Location: [id number] Procedure Note Venancio Chua Jr., MD - 05/24/2025 EXAM DESCRIPTION: CT CHEST ABDOMEN PELVIS W CONTRAST REASON FOR STUDY: Sepsis Elevated wbc TECHNIQUE: CT scan of the chest, abdomen, and pelvis performed with intravenous and without oral contrast using helical scanning techniquewith dynamic intravenous contrast injection. Reconstructed coronal and sagittalMPR images reviewed. All images stored on PACS. Automated exposure control was used as a dose optimization technique for this examination. CONTRAST TYPE/DOSE: 75mL of IOVERSOL 350 MG IODINE/ML INTRAVENOUS SYRINGE injected via intravenous COMPARISON: 01/09/2025. FINDINGS: CHEST LUNGS: There is respiratory motion artifact on the examination. Thereis bibasilar atelectasis. Patchy opacities are seen in the lingula. Thereis likely a component of underlying fibrosis without honeycombing. Smallnodule associated with the right major fissure 0.6 cm unchanged. PLEURA: No pleural effusion or pneumothorax. MEDIASTINUM/LOKI: Small sliding hiatal hernia. Subcarinal lymph node1.3 x 1.2 cm (image 36). Low right paratracheal lymph node just anterior theright main bronchus 1.1 x 1.1 cm. These are similar to the prior study. Thereis a calcification in the right thyroid lobe 1.4 cm. HEART: Heart size is mildly enlarged. There is no pericardial effusion. VASCULATURE CHEST: Pulmonary arterial system is not well assessed, no obvious filling defect in the central pulmonary artery. Ascendingthoracic aorta 3.0 cm, descending thoracic aorta 2.6 cm. AXILLA: No axillary lymphadenopathy. CHEST WALL: No chest wall mass or subcutaneous emphysema. HARDWARE/LINES/TUBES: None. MUSCULOSKELETAL CHEST: There is an incompletely healed distal right clavicular fracture slightly fragmented. Vertebral body height andalignment normal in the thoracic spine. No acute or aggressive osseous lesion. ABDOMEN/PELVIS LIVER: The liver is enlarged at 23.8 cm. There are no focal hepatic lesions. No focal hepatic lesion. Portal and hepatic veins are patent. GALLBLADDER: No gallstones or overt inflammatory change. BILE DUCTS: No biliary ductal dilation. SPLEEN: Spleen size normal. No focal splenic lesion. PANCREAS: No pancreatic mass or inflammatory change. ADRENALS: Normal KIDNEYS/URINARY TRACT: No right renal calculus. No left renal calculus.No ureteral calculus. No hydronephrosis or hydroureter. GI: There is prominent fecal material in the rectum there is somehaziness surrounding the rectum suspicious for stercoral colitis. Prominent fecal material seen elsewhere in the colon. The terminal ileum and appendix are normal. Allowing for the hiatal hernia, the stomach and duodenalotherwise normal. No pneumatosis. PERITONEUM: No ascites or free air. Air no mesenteric mass or lymphadenopathy. RETROPERITONEUM: No retroperitoneal mass or lymphadenopathy. REPRODUCTIVE: Calcified uterine fibroid. There is a cystic structureright adnexa 1.5 cm. VASCULATURE ABDOMEN: Atheromatous calcified noncalcified plaque of the abdominal aorta and common iliac arteries without flow limiting stenosis. There is also prominent calcified plaque of the bilateral external iliac arteries and common femoral arteries, with more significant stenosis, estimated 60% stenosis of the left common femoral artery and 50% stenosis right common femoral artery. Atherosclerotic plaque extends into the superficial and deep femoral arteries bilaterally. MUSCULOSKELETAL ABDOMEN PELVIS: Bone windows demonstrate no acute or aggressive osseous abnormality. There is vacuum disc phenomena at L4-5. OTHER: No significant abnormality. IMPRESSION: 1. Prominent fecal material in the rectum with haziness surrounding the rectum suspicious for stercoral colitis. Prominent fecal materialelsewhere in the colon evidence of constipation. 2. Patchy opacities in the lingula may be due to pneumonia. 3. Incompletely healed distal right clavicular fracture. 4. Mildly enlarged mediastinal lymph nodes are nonspecific but may be reactive. Three-month follow-up chest CT recommended. 5. Small sliding hiatal hernia. 6. Hepatomegaly. 7. Atherosclerotic disease of the abdominal aorta and iliac arterieswith stenosis of the common femoral arteries bilaterally. 8. Calcified uterine fibroid. 9. Right adnexal cystic structure 1.5 cm. THIS IS AN ELECTRONICALLY VERIFIED FINAL REPORT 05/24/2025 5:35 PM - Electronically signed by Venancio Chua M.D. CH: DAGOBERTO Report ID: [id number] Reading Location: [place] [id number] Doni Briceño MD IMG CT PROCEDURES Final Res ult * (ABNORMAL) Urinalysis reflex to microscopic (05/24/2025 4:18 PM CDT) Color, ur Yellow Yellow Clarity, ur Clear Clear [facility] ([place]) Specific gravity, ur 1.015 1.003 - 1.030 [facility] ([place]) pH, urine 6.5 [facility] ([place]) Comment: Interpretive Data U rine pH is affected by diet, medications, systemic acid-base disturbances, and renal tubular function. pH may affect urinary stone formation. For example, urine pH below 6.0 may help reduce the tendency for calcium phosphate stones and pH greater than 6.0 may reduce the tendency for uric acid stone formation. Source: [facility] [email or web address] Current Interpretive Data was last revised on 2017 Protein, ur ql Trace Negative [facility] ([place]) Glucose, ur ql Negative Negative [facility] ([place]) Ketones, ur Negative Negative [facility] ([place]) Bilirubin, ur Negative Negative [facility] ([place]) Blood, ur Negative Negative [facility] ([place]) Urobilinogen, ur <2.0 <2.0 mg/dL [facility] ([place]) Nitrite, ur Negative Negative [facility] ([place]) Leukocyte esterase, ur 1+(A) Negative [facility] ([place]) UA reflex comment Reflex to microscopic UA will be performed. [facility] ([place]) Urine 05/24/2025 4:18 PM CDT 05/24/2025 4:27 PM CDT Doni Briceño MD LAB URINE ORDERABLES Final Result Performing Organization Address City/[facility] Co de Phone Number DARINEL RICHTER ([place]) 1 [facility] Department of Laboratories [place] [id number] * (ABNORMAL) Urinalysis, microscopic only (05/24/2025 4:18 PM CDT) WBC, ur 0-5 0 - 5 /HPF RBC, ur 0-2 0 - 2 /HPF [facility] ([place]) Epithelial cells, squamous, ur 1-5 0 - 5 /HPF [facility] ([place]) Mucous, ur Present(A) [facility] ([place]) Hyaline casts, ur 1-5 0 - 10 /LPF [facility] ([place]) Urine 05/24/2025 4:18 PM CDT 05/24/2025 4:27 PM CDT Doni Briceño MD LAB URINE ORDERABLES Final Result DARINEL RICHTER ([place]) [address] [place] [address] * Blood culture Blood (05/24/2025 3:45 PM CDT) Report Final Report: No growth Comment:Testing performed by : [facility], [address] [place]., [address] Blood 05/24/2025 3:45 PM CDT 05/24/2025 6:26 PM CDT Narrative DARINEL RICHTER ([place]) - 05/29/2025 7:00 AM CDT Collection->Peripheral 1. Blood cultures are incubated for 4 days on a continuously monitored blood culture system. The first report of a negative culture is issued within 24 hours of receipt of the specimen in the laboratory. 2. Positive culture results are reported as soon as they are detected. 3. The most important factor for detection of microbes in the setting of bloodstream infection is the volume of blood submitted for culture. Failure to collect an optimal blood volume can result in false negative blood cultures. 4. For pediatric patients, the recommended blood volume to collect follows a weight based strategy. See the electronic test catalog for collection instructions. 5. For positive blood cultures, a rapid molecular test may be performed for organism identification using the barb [employer]lex blood culture identification panel for gram positive (BCID-GP) and gram negative (BCID-GN) organisms. This nucleic acid amplification test detects microbial DNA in positive blood culture broth. This assay has been cleared by the [place] Food and Drug Administration and its performance characteristics have been verified by the [facility]. For questions about this culture, contact the Microbiology Laboratory at [phone]. Interpretive data was last revised on 24. Doni Briceño MD LAB MICROBIOLOGY - GENERAL ORDERABLES Final Result DARINEL RICHTER ([place]) 1 [facility] [place] [address] * Blood culture Blood (05/24/2025 3:45 PM CDT) Report Final Report: No growth Comment:Testing performed by : [facility], 1 [facility], [place]., [address] Blood 05/24/2025 3:45 PM CDT 05/24/2025 6:26 PM CDT Narrative DARINEL RICHTER ([place]) - 05/29/2025 7:00 AM CDT Collection->Peripheral 1. Blood cultures are incubated for 4 days on a continuously monitored blood culture system. The first report of a negative culture is issued within 24 hours of receipt of the specimen in the laboratory. 2. Positive culture results are reported as soon as they are detected. 3. The most important factor for detection of microbes in the setting of bloodstream infection is the volume of blood submitted for culture. Failure to collect an optimal blood volume can result in false negative blood cultures. 4. For pediatric patients, the recommended blood volume to collect follows a weight based strategy. See the electronic test catalog for collection instructions. 5. For positive blood cultures, a rapid molecular test may be performed for organism identification using the bar[employer]Plex blood culture identification panel for gram positive (BCID-GP) and gram negative (BCID-GN) organisms. This nucleic acid amplification test detects microbial DNA in positive blood culture broth. This assay has been cleared by the [place] Food and Drug Administration and its performance characteristics have been verified by the [facility]. For questions about this culture, contact the Microbiology Laboratory at [phone]. Interpretive data was last revised on 24. Doni Briceño MD LAB MICROBIOLOGY - GENERAL ORDERABLES Final Result DARINEL RICHTER ([place]) 1 [facility] [place] [address] * XR Chest 1 Vw Portable (05/24/2025 2:07 PM CDT) Anatomical Region Laterality Modality Body, Chest N/A Computed Radiogr aphy 05/24/2025 2:11 PM CDT Narrative 05/24/2025 2:12 PM CDT EXAM DESCRIPTION: XR CHEST 1 VIEW REASON FOR STUDY: general weakness Patient to ED via [facility] from [facility] for AMS. AMRT reported that patient is confused at baseline, did not give Astatus, states they found patient crawling on the floor. Patient denies injuries to them at that time. They called EMS and EMS states on their arrival patient was unresponsive. On arrived to ED patient initially minimally responsive and then did become more alert and could answer some simple questions. Patient oriented to self place and year at this time. Neuro 1 was called on patient arrival and patient was seen at stroke stop by ERP and ERP canceled the code. TECHNIQUE: Single frontal radiographic view(s) of the chest. COMPARISON: 05/09/2025 FINDINGS: The heart size is stable. The pulmonary vasculature and mediastinum are grossly stable. There are mild atherosclerotic changes of the aorta. There is no definite evidence of a pneumothorax. There is no definite evidence of pleural effusion. There are mild patchy left infrahilar airspace opacities. The osseous structures are acutely grossly stable. IMPRESSION: 1. Mild patchy left infrahilar airspace opacities, which may be related to subsegmental atelectasis/scarring versus developing airspace disease. THIS IS AN ELECTRONICALLY VERIFIED FINAL REPORT 05/24/2025 2:12 PM - Electronically signed by Jacob Montague D.O. PS: PS Report ID: [id number] Reading Location: [id number] Procedure Note Jacob Montague, DO - 05/24/2025 EXAM DESCRIPTION: XR CHEST 1 VIEW REASON FOR STUDY: general weakness Patient to ED via [facility] from [facility] for AMS. AMRT reported that patient is confused at baseline, did not give Astatus, states they found patientcrawling on the floor. Patient denies injuries to them at that time. They calledEMS and EMS states on their arrival patient was unresponsive. On arrived toED patient initially minimally responsive and then did become more alert and could answer some simple questions. Patient oriented to self place andyear at this time. Neuro 1 was called on patient arrival and patient was seen at stroke stop by ERP and ERP canceled the code. TECHNIQUE: Single frontal radiographic view(s) of the chest. COMPARISON: 05/09/2025 FINDINGS: The heart size is stable. The pulmonary vasculature and mediastinum are grossly stable. There are mild atherosclerotic changes of the aorta.There is no definite evidence of a pneumothorax. There is no definite evidenceof pleural effusion. There are mild patchy left infrahilar airspaceopacities. The osseous structures are acutely grossly stable. IMPRESSION: 1. Mild patchy left infrahilar airspace opacities, which may be relatedto subsegmental atelectasis/scarring versus developing airspace disease. THIS IS AN ELECTRONICALLY VERIFIED FINAL REPORT 05/24/2025 2:12 PM - Electronically signed by Jacob Montague D.O. PS: PS Report ID: [id number] Reading Location: [id number] Doni Briceño MD IMG XR PROCEDURES Final Res ult * (ABNORMAL) eGFR (05/24/2025 1:58 PM CDT) eGFR 43(L) >=60 mL/min/1. 73 m2 Comment: Interpretive Data [...] interpretive data was last reviewed 2021. Blood 05/24/2025 1:58 PM CDT 05/24/2025 2:29 PM CDT Doni Briceño MD LAB BLOOD ORDERABLES Final Result Performing Organization Address [facility] Co de Phone Number DARINEL RICHTER (KIRKLIN) 1 [facility] [place] [email or web address] [address] * aPTT (05/24/2025 1:58 PM CDT) aPTT 32 28 - 38 sec DARINEL RICHTER (KIRKLIN) Comment: Interpretive Data Heparin therapeutic range: 66.0 - 100.0 seconds. Range based on correlation with therapeutic heparin activity range of 0.3 - 0.7 Units/mL. Current interpretive data was last revised on 2023. Blood 05/24/2025 1:58 PM CDT 05/24/2025 2:01 PM CDT Doni Briceño MD LAB BLOOD ORDERABLES Final Result Performing Organization Address [facility] de Phone Number DARINEL RICHTER (KIRKLIN) 1 [facility] [place] [email or web address] [address] * Protime-INR (05/24/2025 1:58 PM CDT) PT 12.1 9.7 - 13.0 sec DARINEL RICHTER ([place]KLIN) INR 1.12 0.90 - 1.20 DARINEL RICHTER (K[place]KLIN) Comment: Interpretive data Oral anticoagulant therapeutic ranges: Venous thromboembolism prophylaxis or treatment: 2.0-3.0 CARDIOLOGY Standard range: 2.0-3.0 High-intensity range: 2.5-3.5 Refer to indication-specific guidelines for appropriate target ranges for prosthetic heart valve replacement. Current interpretive data was last revised on 2019. Blood 05/24/2025 1:58 PM CDT 05/24/2025 2:01 PM CDT Doni Briceño MD LAB BLOOD ORDERABLES Final Result Performing Organization Address [facility] Co de Phone Number DARINEL RICHTER (K[place]KLIN) 1 [facility] [place] [email or web address] [address] * (ABNORMAL) CRP (acute phase) (05/24/2025 1:58 PM CDT) Pathologist [facility] CRP 45.1(H) <=10.0 mg/L Blood 05/24/2025 1:58 PM CDT 05/24/2025 2:29 PM CDT Doni Briceño MD LAB BLOOD ORDERABLES Final Result DARINEL RICHTER (ISABELLE) 1 [facility] [place] [email or web address] [address] * Magnesium (05/24/2025 1:58 PM CDT) [facility] Magnesium 1.5 1.4 - 2.5 mg/dL Blood 05/24/2025 1:58 PM CDT 05/24/2025 2:29 PM CDT Doni Briceño MD LAB BLOOD ORDERABLES Final Result Performing Organization Address City/[facility] de Phone Number DARINEL RICHTER (ISABELLE) 1 [facility] [place] [email or web address] [address] * (ABNORMAL) Comprehensive metabolic panel (05/24/2025 1:58 PM CDT) [facility] Sodium 128(L) 135 - 145 mmol/L Potassium, pl 3.9 3.3 - 4.9 mmol/L [facility] (ISABELLE) Chloride 94(L) 97 - 110 mmol/L [facility] ([place]) CO2 19(L) 22 - 32 mmol/L [facility] ([place]) Anion gap 16(H) 2 - 15 mmol/L [facility] ([place]LE) BUN 23 6 - 25 mg/dL [facility] ([place]) Creatinine 1.33(H) 0.60 - 1.10 mg/dL [facility] ([place]) Glucose 188 70 - 199 mg/dL [facility] ([place]AB[place]LE) Comment: Interpretive Data Fasting glucose >/= [...] 2022. Calcium 9.4 8.5 - 10.3 mg/dL [facility] ([place]) Bilirubin, total 0.3 0.1 - 1.2 mg/dL [facility] ([place]) Protein, pl 6.4(L) 6.5 - 8.5 g/dL [facility] ([place]) Albumin 3.9 3.5 - 5.0 g/dL [facility] ([place]) Alk phos 225(H) 40 - 130 Units/L [facility] ([place]) ALT 74(H) 7 - 45 Units/L [facility] ([place]) AST 95(H) 10 - 45 Units/L [facility] ([place]) Blood 05/24/2025 1:58 PM CDT 05/24/2025 2:29 PM CDT Doni Briceño MD LAB BLOOD ORDERABLES Final Result DRAINEL RICHTER (KIRKLIN) 1 [facility] [place] [address] * (ABNORMAL) Sepsis Lactate w/ Reflex (05/24/2025 1:47 PM CDT) Sepsis Lactate 2.9(H) 0.7 - 2.0 mmol/L Blood 05/24/2025 1:47 PM CDT 05/24/2025 1:49 PM CDT Doni Briceño MD LAB BLOOD ORDERABLES Final Result DARINEL RICHTER (KIRKLIN) 1 [facility] [employer] [place] [email or web address] [address] * ABO/Rh (05/24/2025 1:47 PM CDT) ABO/Rh A Positive Blood 05/24/2025 1:47 PM CDT 05/24/2025 1:49 PM CDT Narrative DARINEL RICHTER ([place]LIN) - 05/24/2025 2:27 PM CDT Has the patient had Daratumumab or Isatuximab in the past 6 months?->Unknown Doni Briceño MD LAB BLOOD BANK TEST ORDERAB LES Final Result Performing Organization Address City/State/[facility] Co de Phone Number DARINEL RICHTER (KIRKLIN) [address] [place] [address] [email or web address] [address] * Antibody screen (05/24/2025 1:47 PM CDT) Meeta, indirect, Gel Interpretation Negative ABSC Blood 05/24/2025 1:47 PM CDT 05/24/2025 1:49 PM CDT Narrative [facility] ([place]) - 05/24/2025 2:27 PM CDT Has the patient had Daratumumab or Isatuximab in the past 6 months?->Unknown Doni Briceño MD LAB BLOOD BANK TEST ORDERAB LES Final Result Performing Organization Address City/[facility] Co de Phone Number DARINEL RICHTER (KIRKLIN) [address] [place] [address] [employer] [place] [address] * CT Head WO Contrast (05/24/2025 1:16 PM CDT) Anatomical Region Laterality Modality Head and Neck N/A Computed Tomogra phy 05/24/2025 1:27 PM CDT Narrative 05/24/2025 1:31 PM CDT EXAM DESCRIPTION: CT HEAD WO CONTRAST REASON FOR STUDY: Head trauma, intracranial arterial injury suspected Altered mental status, duration unknown TECHNIQUE: Axial images acquired through the brain without intravenous contrast. Images stored on PACS. Automated exposure control was used as a dose optimization technique for this examination. COMPARISON: 05/19/2025. Brain MRI 05/20/2025. FINDINGS: A right parietal orn hole is again noted. Again seen is a right extra-fluid collection, this now measures 0.6 cm unchanged. No new extra-hemorrhage. No left extra-hemorrhage. Right basal ganglia lacunar infarctions are again seen. No intraparenchymal hemorrhage. No new cerebral edema, new mass or mass effect. There is no hydrocephalus. Bone windows demonstrate no acute skull base or calvarial abnormality. Included paranasal sinuses and mastoid air cells are predominantly clear. The orbits are unremarkable. IMPRESSION: 1. No evidence of an acute intracranial abnormality. 2. Unchanged right extra-axial subdural fluid collection 0.6 cm. 3. Unchanged right basal ganglia lacunar infarctions. THIS IS AN ELECTRONICALLY VERIFIED FINAL REPORT 05/24/2025 1:31 PM - Electronically signed by Venancio Chua M.D. CH: Report ID: [id number] Reading Location: [id number] Procedure Note Venancio Chua Jr., MD - 05/24/2025 EXAM DESCRIPTION: CT HEAD WO CONTRAST REASON FOR STUDY: Head trauma, intracranial arterial injury suspected Altered mental status, duration unknown TECHNIQUE: Axial images acquired through the brain without intravenous contrast. Images stored on PACS. Automated exposure control was used asa dose optimization technique for this examination. COMPARISON: 05/19/2025. Brain MRI 05/20/2025. FINDINGS: A right parietal ron hole is again noted. Again seen is a rightextra-fluid collection, this now measures 0.6 cm unchanged. No new extra-hemorrhage.No left extra-hemorrhage. Right basal ganglia lacunar infarctions are again seen. No intraparenchymal hemorrhage. No new cerebral edema, new mass or mass effect. There is no hydrocephalus. Bone windows demonstrate noacute skull base or calvarial abnormality. Included paranasal sinuses andmastoid air cells are predominantly clear. The orbits are unremarkable. IMPRESSION: 1. No evidence of an acute intracranial abnormality. 2. Unchanged right extra-axial subdural fluid collection 0.6 cm. 3. Unchanged right basal ganglia lacunar infarctions. THIS IS AN ELECTRONICALLY VERIFIED FINAL REPORT 05/24/2025 1:31 PM - Electronically signed by Venancio Chua M.D. CH: DAGOBERTO Report ID: [id number] Reading Location: [id number] Ernie Rivas MD IMG CT PROCEDURES Final Resul t * (ABNORMAL) Differential, auto (05/24/2025 1:09 PM CDT) Neutrophil abs 16.66(H) 1.50 - 6.50 K/cumm Imm gran abs 0.12(H) 0.00 - 0.10 K/cumm [facility] ([place]) Lymphocyte abs 1.74 0.80 - 3.30 K/cumm [facility] ([place]) Monocyte abs 1.41(H) 0.20 - 0.80 K/cumm [facility] ([place]) Eosinophil abs 0.35 0.00 - 0.50 K/cumm [facility] ([place]) Basophil abs 0.09 0.00 - 0.10 K/cumm [facility] ([place]) Neutrophil pct 81.9 % [facility] ([place]) Comment: Interpretive Data Percent cell count reference ranges are not reported, since discordance with absolute values may lead to misinterpretation of CBC data. Current Interpretive Data was last revised on 2018. Imm gran pct 0.6 % [facility] ([place]) Comment: Interpretive Data Percent cell count reference ranges are not reported, since discordance with absolute values may lead to misinterpretation of CBC data. Current Interpretive Data was last revised on 2018. Lymphocyte pct 8.5 % [facility] ([place]) Comment: Interpretive Data Percent cell count reference ranges are not reported, since discordance with absolute values may lead to misinterpretation of CBC data. Current Interpretive Data was last revised on 2018. Monocyte pct 6.9 % [facility] ([place]) Comment: Interpretive Data Percent cell count reference ranges are not reported, since discordance with absolute values may lead to misinterpretation of CBC data. Current Interpretive Data was last revised on 2018. Eosinophil pct 1.7 % [facility] ([place]) Comment: Interpretive Data Percent cell count reference ranges are not reported, since discordance with absolute values may lead to misinterpretation of CBC data. Current Interpretive Data was last revised on 2018. Basophil pct 0.4 % DARINEL RICHTER (ISABELLE) Comment: Interpretive Data Percent cell count reference ranges are not reported, since discordance with absolute values may lead to misinterpretation of CBC data. Current Interpretive Data was last revised on 2018. Blood 05/24/2025 1:09 PM CDT 05/24/2025 1:41 PM CDT us Doni Bricñeo MD LAB BLOOD ORDERABLES Final Result DARINEL NEELAM (ISABELLE) 1 [facility] [place] [address] * (ABNORMAL) Procalcitonin (05/24/2025 1:09 PM CDT) Pathologist [facility] Procalcitonin 1.48(H) <=0.25 ng/mL Comment:Testing performed by : [facility], [facility], [place]., [address] Blood 05/24/2025 1:09 PM CDT 05/25/2025 12:54 PM CDT us Kiley Kwok MD LAB BLOOD ORDERABLES Final Re sult DUCJOVANNI NEELAM (ISABELLE) 1 [facility] [place] [email or web address] [address] * (ABNORMAL) CBC with auto differential (05/24/2025 1:09 PM CDT) WBC 20.37(H) 3.80 - 9.90 K/cumm Hgb 10.4(L) 11.9 - 15.5 g/dL DARINEL RICHTER ([place]ABELLE) Hct 31.5(L) 35.6 - 45.5 % DARINEL RICHTER ([place]AB[place]LE) Plt 333 150 - 400 K/cumm [facility] ([place]) MPV 9.8 9.1 - 12.3 fL [facility] ([place]) RBC 3.66(L) 3.90 - 5.20 M/cumm [facility] ([place]) MCV 86.1 81.3 - 96.4 fL [facility] ([place]) MCH 28.4 27.1 - 33.3 pg [facility] ([place]) MCHC 33.0 32.3 - 35.7 g/dL [facility] ([place]) RDW CV 13.5 11.1 - 14.9 % [facility] ([place]) RDW SD 42.3 35.7 - 48.1 fL [facility] ([place]) NRBC abs 0.00 0.00 - 0.01 K/cumm [facility] ([place]) Blood 05/24/2025 1:09 PM CDT 05/24/2025 1:41 PM CDT Doni Briceño MD LAB BLOOD ORDERABLES Final Result Performing Organization Address City/[facility]/ZIP Co de Phone Number DARINEL RICHTER (ISABELLE) 1 [facility] [place] [email or web address] [address] * Erythrocyte sedimentation rate (05/24/2025 1:09 PM CDT) Pathologist [facility] Erythrocyte sedimentation rate 18 1 - 30 mm/hr Blood 05/24/2025 1:09 PM CDT 05/24/2025 1:41 PM CDT Doni Briceño MD LAB BLOOD ORDERABLES Final Result DARINEL RICHTER (ISABELLE) 1 [facility] [place] [email or web address] [address] * POCT glucose (05/21/2025 4:31 PM CDT) Glucose, POC 199 70 - 199 mg/dL Blood 05/21/2025 4:31 PM CDT 05/21/2025 4:31 PM CDT Beverly Goff DO LAB POCT ORDERABLES - DE VICE Final Result DARINEL RICHTER ([place]KLIN) 1 [facility] [place] [email or web address] [address] * (ABNORMAL) POCT glucose (05/21/2025 11:11 AM CDT) Glucose, POC 253(H) 70 - 199 mg/dL Blood 05/21/2025 11:1 1 AM CDT 05/21/2025 11:11 AM CDT Beverly Goff DO LAB POCT ORDERABLES - DE VICE Final Result DARINEL RICHTER ([place]) 1 [facility] [place] [email or web address] [address] * POCT glucose (05/21/2025 7:30 AM CDT) Glucose, POC 148 70 - 199 mg/dL Blood 05/21/2025 7:30 AM CDT 05/21/2025 7:30 AM CDT Beverly Goff DO LAB POCT ORDERABLES - DE VICE Final Result DARINEL RICHTER ([place]LIN) 1 [facility] [place] [email or web address] [address] * POCT glucose (05/21/2025 2:07 AM CDT) Glucose, POC 157 70 - 199 mg/dL Blood 05/21/2025 2:07 AM CDT 05/21/2025 2:07 AM CDT Beverly Goff DO LAB POCT ORDERABLES - DE VICE Final Result DARINEL RICHTER ([place]LIN) 1 [facility] [place] [email or web address] [address] * (ABNORMAL) POCT glucose (05/20/2025 9:39 PM CDT) Glucose, POC 246(H) 70 - 199 mg/dL Comment:Glu2: RN/MD Notified Blood 05/20/2025 9:39 PM CDT 05/20/2025 9:39 PM CDT Beverly Goff DO LAB POCT ORDERABLES - DE VICE Final Result DARINEL RICHTER (ISABELLE) 1 [facility] [place] [email or web address] [address] * POCT glucose (05/20/2025 4:36 PM CDT) Glucose, POC 173 70 - 199 mg/dL Blood 05/20/2025 4:36 PM CDT 05/20/2025 4:36 PM CDT Beverly Goff DO LAB POCT ORDERABLES - DE VICE Final Result Performing Organization Address City/[facility]/ZIP Co de Phone Number DARINEL RICHTER (KIRKLIN) 1 [facility] [email or web address] [address] * (ABNORMAL) POCT glucose (05/20/2025 11:24 AM CDT) Glucose, POC 202(H) 70 - 199 mg/dL Blood 05/20/2025 11:2 4 AM CDT 05/20/2025 11:24 AM CDT Beverly Nida Rolyjaron DO LAB POCT ORDERABLES - DE VICE Final Result Performing Organization Address City/[facility]/ZIP Co de Phone Number DARINEL RICHTER (ISABELLE) 1 [facility] [place] [email or web address] [address] * MRI Brain WO Contrast (05/20/2025 10:42 AM CDT) Anatomical Region Laterality Modality Head and Neck N/A Magnetic Resonan ce 05/20/2025 10:4 4 AM CDT Narrative 05/20/2025 10:52 AM CDT EXAM DESCRIPTION: MRI BRAIN WO CONTRAST REASON FOR STUDY: Neuro deficit, acute, stroke suspected F/u stroke, came to ED last night with AMS and having difficulty getting words out, hx subdural hematoma from fall in November of this year TECHNIQUE: Multiplanar imaging includes non-contrasted T1, T2, FLAIR, and diffusion with ADC map sequences. Additional sequence(s) sensitive to blood products. Images stored on PACS. COMPARISON: Multiple previous CT head without contrast with the most recent dated 05/19/2025. CTA head and neck dated 05/19/2025 and 05/13/2025. FINDINGS: Right frontal ron hole is again seen. Right cerebral holohemispheric FLAIR hyperintense, T1 isointense subdural blood products with maximum transverse thickness of 5-6 mm. Mild diffusion hyperintense signal in the subdural collection is likely related to the blood products. Partial effacement subjacent sulci without significant midline shift. Similar signal intensity small volume subdural blood products along the interhemispheric falx with maximum transverse thickness of 1 mm. Additional similar signal intensity subdural blood products overlying the left frontal convexity and left parietal convexity with maximum thickness of 1 mm. No significant mass effect or midline shift. Elsewhere in the brain there is no diffusion restriction to suggest acute/recent infarction. There is mild diffuse parenchymal volume loss. No hydrocephalus. The basilar cisterns are maintained. Right aguilar radiata and lentiform nucleus small chronic infarction is again seen. Elsewhere in the brain the subcortical and periventricular white matter T2/FLAIR hyperintense signal in the bilateral cerebral hemispheres is nonspecific but compatible with chronic microvascular ischemic type change in a patient of this age. Similar signal alteration is seen in the rian. The vascular findings are better assessed on dedicated CT angiogram dated 05/19/2025. The bilateral globes are symmetric. There is mucosal thickening in the bilateral ethmoid air cells and right maxillary sinus floor. Right sphenoid sinus foamy secretions. Rhmww-zkexgpw-xwod-left mastoid T2 hyperintense fluid signal. IMPRESSION: 1. No acute infarction. 2. Right frontal ron hole. Jlvfc-eznvvtk-kjss-left bilateral cerebral convexity subdural blood products are again seen. No progressive mass effect or midline shift. 3. Chronic infarctions, chronic microvascular ischemic type white-matter changes and additional findings as above. 4. Right sphenoid sinus foamy secretions can be seen with acute sinusitis in the proper clinical scenario. THIS IS AN ELECTRONICALLY VERIFIED FINAL REPORT 05/20/2025 10:52 AM - Electronically signed by Sterling Lorenz D.O. AP: AP Report ID: [id number] Reading Location: [id number] Procedure Note Sterling Lorenz, DO - 05/20/2025 EXAM DESCRIPTION: MRI BRAIN WO CONTRAST REASON FOR STUDY: Neuro deficit, acute, stroke suspected F/u stroke, came to ED last night with AMS and having difficulty gettingwords out, hx subdural hematoma from fall in November of this year TECHNIQUE: Multiplanar imaging includes non-contrasted T1, T2, FLAIR, and diffusion with ADC map sequences. Additional sequence(s) sensitive toblood products. Images stored on PACS. COMPARISON: Multiple previous CT head without contrast with the mostrecent dated 05/19/2025. CTA head and neck dated 05/19/2025 and 05/13/2025. FINDINGS: Right frontal ron hole is again seen. Right cerebral holohemisphericFLAIR hyperintense, T1 isointense subdural blood products with maximumtransverse thickness of 5-6 mm. Mild diffusion hyperintense signal in the subdural collection is likely related to the blood products. Partial effacement subjacent sulci without significant midline shift. Similar signalintensity small volume subdural blood products along the interhemispheric falx with maximum transverse thickness of 1 mm. Additional similar signal intensity subdural blood products overlying the left frontal convexity and leftparietal convexity with maximum thickness of 1 mm. No significant mass effect or midline shift. Elsewhere in the brain there is no diffusion restriction to suggest acute/recent infarction. There is mild diffuse parenchymal volume loss. No hydrocephalus. Thebasilar cisterns are maintained. Right aguilar radiata and lentiform nucleus small chronic infarction isagain seen. Elsewhere in the brain the subcortical and periventricular whitematter T2/FLAIR hyperintense signal in the bilateral cerebral hemispheres is nonspecific but compatible with chronic microvascular ischemic type changein a patient of this age. Similar signal alteration is seen in the rina. The vascular findings are better assessed on dedicated CT angiogram dated 05/19/2025. The bilateral globes are symmetric. There is mucosal thickening in the bilateral ethmoid air cells and right maxillary sinus floor. Rightsphenoid sinus foamy secretions. Lagkx-wgzhyra-lrnd-left mastoid T2 hyperintensefluid signal. IMPRESSION: 1. No acute infarction. 2. Right frontal ron hole. Kncbu-ciybbvd-mdgi-left bilateral cerebral convexity subdural blood products are again seen. No progressive masseffect or midline shift. 3. Chronic infarctions, chronic microvascular ischemic type white-matter changes and additional findings as above. 4. Right sphenoid sinus foamy secretions can be seen with acutesinusitis in the proper clinical scenario. THIS IS AN ELECTRONICALLY VERIFIED FINAL REPORT 05/20/2025 10:52 AM - Electronically signed by Sterling Lorenz D.O. AP: AP Report ID: [id number] Reading Location: [place] [id number] Liat Potts MD IMG MRI PROCEDURES Final Result * POCT glucose (05/20/2025 7:55 AM CDT) Glucose, POC 120 70 - 199 mg/dL Blood 05/20/2025 7:55 AM CDT 05/20/2025 7:55 AM CDT us Beverly Goff DO LAB POCT ORDERABLES - DE VICE Final Result DARINEL RICHTER (KIRKLIN) 1 [facility] [place] [address] * (ABNORMAL) Troponin T high-sensitivity 6-hour (05/20/2025 5:52 AM CDT) Trop T hs 19(H) <=14 ng/L Comment: Interpretive Data For further hscTnT resources including the diagnostic algorithm and an aid in interpretation, copy and paste this link: https://nrl.testcatalog.org/show/hsTrop Current Interpretive Data last revised 2020. Trop T hs delta 2 ng/L [facility] ([place]) Trop T hs interp Insignificant [facility] ([place]) Blood 05/20/2025 5:5 2 AM CDT 05/20/2025 6:07 AM CDT Liat Potts MD LAB BLOOD ORDERABLES Aracelis l Result DARINEL RICHTER (KIRKLIN) 1 [facility] [place] [address] * Sepsis Lactate w/ Reflex (05/20/2025 5:52 AM CDT) Sepsis Lactate 1.0 0.7 - 2.0 mmol/L Blood 05/20/2025 5:52 AM CDT 05/20/2025 6:07 AM CDT Liat Potts MD LAB BLOOD ORDERABLES Aracelis l Result DARINEL RICHTER (K[place]KLIN) 1 [facility] [place] [address] * eGFR (05/20/2025 5:52 AM CDT) eGFR 68 >=60 mL/min/1. 73 m2 Comment: Interpretive Data [...] interpretive data was last reviewed 2021. Blood 05/20/2025 5:52 AM CDT 05/20/2025 6:07 AM CDT Liat Potts MD LAB BLOOD ORDERABLES Aracelis l Result Performing Organization Address City/[facility]/ZIP Co de Phone Number [facility]) 1 [facility] [employer] [address] * Magnesium (05/20/2025 5:52 AM CDT) Magnesium 1.7 1.4 - 2.5 mg/dL Blood 05/20/2025 5:52 AM CDT 05/20/2025 6:07 AM CDT Maisha Ferrell MD LAB BLOOD ORDERABLES Fi nal Result Performing Organization Address [facility] Co de Phone Number [facility] NEELAM (K[place]LIN) 1 [facility] [place] [address] * (ABNORMAL) Comprehensive metabolic panel (05/20/2025 5:52 AM CDT) Sodium 136 135 - 145 mmol/L Potassium, pl 3.9 3.3 - 4.9 mmol/L [facility] ([place]) Chloride 101 97 - 110 mmol/L [facility] ([place]) CO2 21(L) 22 - 32 mmol/L [facility] ([place]) Anion gap 14 2 - 15 mmol/L [facility] ([place]) BUN 17 6 - 25 mg/dL [facility] ([place]) Creatinine 0.91 0.60 - 1.10 mg/dL [facility] ([place]) Glucose 119 70 - 199 mg/dL [facility] ([place]) [...] 2022. Calcium 9.4 8.5 - 10.3 mg/dL [facility] ([place]) Bilirubin, total 0.2 0.1 - 1.2 mg/dL [facility] ([place]) Protein, pl 6.3(L) 6.5 - 8.5 g/dL [facility] ([place]) Albumin 3.5 3.5 - 5.0 g/dL [facility] ([place]) Alk phos 160(H) 40 - 130 Units/L [facility] ([place]) ALT 23 7 - 45 Units/L [facility] ([place]) AST 16 10 - 45 Units/L [facility] ([place]) Blood 05/20/2025 5:52 AM CDT 05/20/2025 6:07 AM CDT Liat Potts MD LAB BLOOD ORDERABLES Aracelis l Result [facility] ([place] 1 [facility] [place] [address] * (ABNORMAL) Troponin T high-sensitivity 2-hour (05/20/2025 2:12 AM CDT) Trop T hs 15(H) <=14 ng/L Comment: Interpretive Data For further hscTnT resources including the diagnostic algorithm and an aid in interpretation, copy and paste this link: https://nrl.testcatalog.org/show/hsTrop Current Interpretive Data last revised 2020. Trop T hs delta -2 ng/L [facility] ([place]) Trop T hs interp Insignificant [facility] ([place]) Blood 05/20/2025 2:12 AM CDT 05/20/2025 2:45 AM CDT us Liat Potts MD LAB BLOOD ORDERABLES Aracelis lyle Result [facility] [place] 1 [facility] [place] [address] * CT CRITICAL CARE ILL/INJURED PATIENT INIT 30-74 MIN (05/20/2025 1:49 AM CDT) Narrative Liat Potts MD - 05/20/2025 1:49 AM CDT Liat Potts MD 05/20/2025 1:50 AM Critical Care Performed by: Liat Potts MD Authorized by: Liat Potts MD Critical care provider statement: As reflected in the history, physical exam, orders, notes, and/or MDM, I was personally present while the patient was critically ill and provided critical care services for 60 minutes, excluding time involved in separately billable procedures. Critical care was necessary to treat or prevent imminent or life-threatening deterioration of the following condition(s): severe neurologic condition and acute cerebrovascular accident (CVA) Critical care was time spent by me providing the following: continuous telemetry, continuous pulse oximetry, continuous capnography and interpretation of bedside monitors, imaging, and arterial/venous lab draws frequent neurologic exams and initiation of stroke management I provided emergent necessary critical care medicine [...] medical record. I admitted this patient to a continuous cardiac monitored bed. us Liat Potts MD IN CLINIC/BEDSIDE ORDERAB LES Final Result * ECG 12 lead (05/20/2025 12:46 AM CDT) 05/20/2025 12:4 6 AM CDT Narrative [facility] - 05/20/2025 10:27 AM CDT Vent Rate: 72 bpm RR Interval: [address] Interval: 151 msec QRS Duration: 89 msec QT Interval: 389 msec QTC Interval: 412 msec P-R-T [place]: 34 - 95 - 31 degrees IMPRESSION: SINUS RHYTHM BORDERLINE RIGHT AXIS DEVIATION [QRS AXIS > 90] BORDERLINE ECG Electronically Signed By: Harjeet Mendez MD Liat Potts MD ECG ORDERABLES Final Res ult [facility] * Urinalysis reflex to microscopic and culture Urine (05/20/2025 12:25 AM CDT) Color, ur Yellow Yellow Clarity, ur Clear Clear [facility] ([place]) Specific gravity, ur 1.019 1.003 - 1.030 [facility] pH, urine 6.0 [facility] Comment: Interpretive Data U rine pH is affected by diet, medications, systemic acid-base disturbances, and renal tubular function. pH may affect urinary stone formation. For example, urine pH below 6.0 may help reduce the tendency for calcium phosphate stones and pH greater than 6.0 may reduce the tendency for uric acid stone formation. Source: [facility] [email or web address] Current Interpretive Data was last revised on 2017 Protein, ur ql Negative Negative [facility] ([place]) Glucose, ur ql Negative Negative [facility] ([place]) Ketones, ur Negative Negative [facility] ([place]) Bilirubin, ur Negative Negative [facility] ([place]) Blood, ur Negative Negative [facility] ([place]) Urobilinogen, ur <2.0 <2.0 mg/dL [facility] ([place]) Nitrite, ur Negative Negative [facility] ([place]) Leukocyte esterase, ur Negative Negative [facility] ([place]) UA reflex comment Reflex conditions for microscopic UA and culture not met. [facility] ([place]) Urine 05/20/2025 12:2 5 AM CDT 05/20/2025 12:29 AM CDT Liat Potts MD LAB MICROBIOLOGY - GENERA L ORDERABLES Final Result [facility] [place] [facility] Department [place] [address] * CTA Stroke Head Neck W WO Contrast (05/20/2025 12:06 AM CDT) Anatomical Region Laterality Modality Head and Neck N/A Computed Tomogra phy 05/20/2025 12:1 1 AM CDT Narrative 05/20/2025 12:43 AM CDT EXAM DESCRIPTION: CT STROKE HEAD WO CONTRAST; CTA STROKE HEAD NECK W WO CONTRAST REASON FOR STUDY: Stroke Pt to ED by EMS from home with complaints of altered mental status. Pt was DC from hospital today. Pt family stated that she was not able to get words out. Unknown last known well. Pt AO4 on arrival with history of dementia. Pt is struggling to get words out ; stroke Pt to ED by EMS from home with complaints of altered mental status. Pt was DC from hospital today. Pt family stated that she was not able to get words out. Unknown last known well. Pt AO4 on arrival with history of dementia. Pt is struggling to get words out TECHNIQUE: Axial images were first obtained through the brain without contrast. Axial dynamic scanning technique with dynamic contrast enhancement through the intracranial and extracranial carotid and vertebral arteries. Multiplanar reconstruction. All stenosis measurements are based on NASCET criteria. RAPID angiography summary assessment was performed. 3D MIP images rendered on scanning unit and reviewed at time of interpretation. Automated exposure control was used as a dose optimization technique for this examination. CONTRAST TYPE/DOSE: 75mL of IOVERSOL 350 MG IODINE/ML INTRAVENOUS SYRINGE injected via intravenous COMPARISON: Comparison is made to multiple previous studies, the most recent CT of the head and CTA of the head and neck of May 13, 2025. FINDINGS: HEAD BRAIN: There is no midline shift, mass or mass effect. The ventricles, cisterns and sulci are mildly, globally and proportionally prominent consistent with atrophy. There is normal differentiation of the youngblood-white matter. There is an old right centrum semiovale and right basal ganglia infarct, unchanged.. There is decreased attenuation in the periventricular white matter, nonspecific, but likely related to small vessel ischemic change. There is no significant change as compared to previous study. EXTRA-AXIAL SPACES: There is stable right subdural collection, mildly hyperattenuating, measuring up to 5 mm in its area of greatest thickness over the right frontal lobe. CALVARIUM: No fracture. Right frontal ron hole defect is again seen, unchanged. SINUSES/MASTOIDS: There is debris in the right sphenoid sinus. The remaining paranasal sinuses and mastoid air cells are clear. ORBITS: No significant abnormality. INTRACRANIAL VESSELS ANTERIOR CIRCULATION: There is heavy atherosclerosis of the carotid siphons bilaterally. The carotid siphons appear patent bilaterally. The right A1 segment is patent. 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 There are irregular areas of mild stenosis in the left A2 segment. The anterior communicating artery is patent. There is a long segment of severe stenosis in the right M1 segment measuring approximately 9 mm in length. There is a short segment of severe stenosis in the left M1 segment measuring approximately 5 mm in length. The distal branches opacify normally. POSTERIOR CIRCULATION: There is a 4-5 mm segment of severe stenosis in the right P1 segment. There is marked hypoplasia versus severe stenosis of the left P1 segment with distal opacification from the left posterior communicating artery, unchanged from previous. The basilar artery is patent. There is irregular atherosclerosis and up to 80% stenosis seen of the distal vertebral arteries bilaterally. The left vertebral artery is dominant. CAROTID CTA AORTIC ARCH: There is mild atherosclerosis of the aorta. There is normal three-vessel anatomy. RIGHT CAROTIDS: The right common and internal carotid arteries are patent. There is mild stenosis secondary to atherosclerosis seen of the right carotid bulb and proximal right internal carotid artery. No dissection. LEFT CAROTIDS: The left common and internal carotid arteries are patent. There is minimal stenosis secondary to atherosclerosis seen of the left carotid bulb. No dissection. RIGHT VERTEBRAL: V1 through V3 segments are patent. Up to 80% stenosis of the V4 segment, unchanged. No dissection. LEFT VERTEBRAL: V1 through the 3 segments are patent. Up to 80% stenosis of the V4 segment, unchanged. No dissection. NON-VASCULAR SOFT TISSUES: There is a rim calcified 1.6 cm right thyroid nodule. No evidence of adenopathy or mass. BONES: There is degenerative change through out the cervical spine. LUNG APICES: The lung apices are clear. OTHER: No other significant finding. IMPRESSION: 1. No acute intracranial abnormality. 2. 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 3. Mild global atrophy and chronic small vessel ischemic change. 4. Stable right subdural collection, measuring up to 5 mm in greatest thickness. 5. 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 6. Stable severe stenosis of the right P1 segment. 7. 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 8. Up to 80% stenosis of the V4 segments of the vertebral arteries bilaterally, unchanged. 9. Mild stenosis of the right carotid bulb and proximal right internal carotid artery, unchanged. 10. Minimal stenosis of the left carotid bulb, unchanged. 11. 1.6 cm rim calcified right thyroid nodule. Recommend further evaluation with dedicated thyroid ultrasound. Findings were discussed with Dr. Potts at 00:18 on 05/20/2025 . RBV. THIS IS AN ELECTRONICALLY VERIFIED FINAL REPORT 05/20/2025 12:43 AM - Electronically signed by Hattie Boss M.D. SN: SN Report ID: [id number] Reading Location: [id number] Procedure Note Hattie Boss MD - 05/20/2025 EXAM DESCRIPTION: CT STROKE HEAD WO CONTRAST; CTA STROKE HEAD NECK W WO CONTRAST REASON FOR STUDY: Stroke Pt to ED by EMS from home with complaints of altered mental status. Pt wasDC from hospital today. Pt family stated that she was not able to get wordsout. Unknown last known well. Pt AO4 on arrival with history of dementia. Pt is struggling to get words out ; stroke Pt to ED by EMS from home with complaints of altered mental status. Pt wasDC from hospital today. Pt family stated that she was not able to get wordsout. Unknown last known well. Pt AO4 on arrival with history of dementia. Pt is struggling to get words out TECHNIQUE: Axial images were first obtained through the brain without contrast. Axial dynamic scanning technique with dynamic contrast enhancement throughthe intracranial and extracranial carotid and vertebral arteries. Multiplanar reconstruction. All stenosis measurements are based on NASCET criteria.RAPID angiography summary assessment was performed. 3D MIP images rendered on scanning unit and reviewed at time of interpretation. Automated exposure control was used as a dose optimization technique forthis examination. CONTRAST TYPE/DOSE: 75mL of IOVERSOL 350 MG IODINE/ML INTRAVENOUSSYRINGE injected via intravenous COMPARISON: Comparison is made to multiple previous studies, the mostrecent CT of the head and CTA of the head and neck of May 13, 2025. FINDINGS: HEAD BRAIN: There is no midline shift, mass or mass effect. The ventricles, cisterns and sulci are mildly, globally and proportionally prominent consistent with atrophy. There is normal differentiation of the youngblood-white matter. There is an old right centrum semiovale and right basal ganglia infarct, unchanged.. There is decreased attenuation in theperiventricular white matter, nonspecific, but likely related to small vessel ischemicchange. There is no significant change as compared to previous study. EXTRA-AXIAL SPACES: There is stable right subdural collection, mildly hyperattenuating, measuring up to 5 mm in its area of greatest thicknessover the right frontal lobe. CALVARIUM: No fracture. Right frontal ron hole defect is again seen, unchanged. SINUSES/MASTOIDS: There is debris in the right sphenoid sinus. Theremaining paranasal sinuses and mastoid air cells are clear. ORBITS: No significant abnormality. INTRACRANIAL VESSELS ANTERIOR CIRCULATION: There is heavy atherosclerosis of the carotidsiphons bilaterally. The carotid siphons appear patent bilaterally. The rightA1 segment is patent. 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 There areirregular areas of mild stenosis in the left A2 segment. The anteriorcommunicating artery is patent. There is a long segment of severe stenosis in theright M1 segment measuring approximately 9 mm in length. There is a short segmentof severe stenosis in the left M1 segment measuring approximately 5 mm inlength. The distal branches opacify normally. POSTERIOR CIRCULATION: There is a 4-5 mm segment of severe stenosis inthe right P1 segment. There is marked hypoplasia versus severe stenosis ofthe left P1 segment with distal opacification from the left posterior communicating artery, unchanged from previous. The basilar artery is patent. There is irregular atherosclerosis and up to 80% stenosis seenof the distal vertebral arteries bilaterally. The left vertebral artery is dominant. CAROTID CTA AORTIC ARCH: There is mild atherosclerosis of the aorta. There is normal three-vessel anatomy. RIGHT CAROTIDS: The right common and internal carotid arteries arepatent. There is mild stenosis secondary to atherosclerosis seen of the rightcarotid bulb and proximal right internal carotid artery. No dissection. LEFT CAROTIDS: The left common and internal carotid arteries are patent. There is minimal stenosis secondary to atherosclerosis seen of the left carotid bulb. No dissection. RIGHT VERTEBRAL: V1 through V3 segments are patent. Up to 80% stenosisof the V4 segment, unchanged. No dissection. LEFT VERTEBRAL: V1 through the 3 segments are patent. Up to 80% stenosisof the V4 segment, unchanged. No dissection. NON-VASCULAR SOFT TISSUES: There is a rim calcified 1.6 cm right thyroid nodule. No evidence of adenopathy or mass. BONES: There is degenerative change through out the cervical spine. LUNG APICES: The lung apices are clear. OTHER: No other significant finding. IMPRESSION: 1. No acute intracranial abnormality. 2. Old right centrum semiovale and right basal ganglia infarct,unchanged. 3. Mild global atrophy and chronic small vessel ischemic change. 4. Stable right subdural collection, measuring up to 5 mm in greatest thickness. 5. Stable severe stenosis of the M1 segments of the middle cerebralarteries bilaterally. 6. Stable severe stenosis of the right P1 segment. 7. Stable marked hypoplasia versus long segment severe stenosis of theleft P1 segment. 8. Up to 80% stenosis of the V4 segments of the vertebral arteries bilaterally, unchanged. 9. Mild stenosis of the right carotid bulb and proximal right internal carotid artery, unchanged. 10. Minimal stenosis of the left carotid bulb, unchanged. 11. 1.6 cm rim calcified right thyroid nodule. Recommend furtherevaluation with dedicated thyroid ultrasound. Findings were discussed with Dr. Potts at 00:18 on 05/20/2025 .RBV. THIS IS AN ELECTRONICALLY VERIFIED FINAL REPORT 05/20/2025 12:43 AM - Electronically signed by Hattie Boss M.D. SN: Report ID: [id number] Reading Location: [id number] Liat Potts MD IMG CT PROCEDURES Final R esult * CT Stroke Head WO Contrast (05/19/2025 11:57 PM CDT) Anatomical Region Laterality Modality Head N/A Computed Tomogra phy 05/20/2025 12:1 1 AM CDT Narrative 05/20/2025 12:43 AM CDT EXAM DESCRIPTION: CT STROKE HEAD WO CONTRAST; CTA STROKE HEAD NECK W WO CONTRAST REASON FOR STUDY: Stroke Pt to ED by EMS from home with complaints of altered mental status. Pt was DC from hospital today. Pt family stated that she was not able to get words out. Unknown last known well. Pt AO4 on arrival with history of dementia. Pt is struggling to get words out ; stroke Pt to ED by EMS from home with complaints of altered mental status. Pt was DC from hospital today. Pt family stated that she was not able to get words out. Unknown last known well. Pt AO4 on arrival with history of dementia. Pt is struggling to get words out TECHNIQUE: Axial images were first obtained through the brain without contrast. Axial dynamic scanning technique with dynamic contrast enhancement through the intracranial and extracranial carotid and vertebral arteries. Multiplanar reconstruction. All stenosis measurements are based on NASCET criteria. RAPID angiography summary assessment was performed. 3D MIP images rendered on scanning unit and reviewed at time of interpretation. Automated exposure control was used as a dose optimization technique for this examination. CONTRAST TYPE/DOSE: 75mL of IOVERSOL 350 MG IODINE/ML INTRAVENOUS SYRINGE injected via intravenous COMPARISON: Comparison is made to multiple previous studies, the most recent CT of the head and CTA of the head and neck of May 13, 2025. FINDINGS: HEAD BRAIN: There is no midline shift, mass or mass effect. The ventricles, cisterns and sulci are mildly, globally and proportionally prominent consistent with atrophy. There is normal differentiation of the youngblood-white matter. There is an old right centrum semiovale and right basal ganglia infarct, unchanged.. There is decreased attenuation in the periventricular white matter, nonspecific, but likely related to small vessel ischemic change. There is no significant change as compared to previous study. EXTRA-AXIAL SPACES: There is stable right subdural collection, mildly hyperattenuating, measuring up to 5 mm in its area of greatest thickness over the right frontal lobe. CALVARIUM: No fracture. Right frontal ron hole defect is again seen, unchanged. SINUSES/MASTOIDS: There is debris in the right sphenoid sinus. The remaining paranasal sinuses and mastoid air cells are clear. ORBITS: No significant abnormality. INTRACRANIAL VESSELS ANTERIOR CIRCULATION: There is heavy atherosclerosis of the carotid siphons bilaterally. The carotid siphons appear patent bilaterally. The right A1 segment is patent. 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 There are irregular areas of mild stenosis in the left A2 segment. The anterior communicating artery is patent. There is a long segment of severe stenosis in the right M1 segment measuring approximately 9 mm in length. There is a short segment of severe stenosis in the left M1 segment measuring approximately 5 mm in length. The distal branches opacify normally. POSTERIOR CIRCULATION: There is a 4-5 mm segment of severe stenosis in the right P1 segment. There is marked hypoplasia versus severe stenosis of the left P1 segment with distal opacification from the left posterior communicating artery, unchanged from previous. The basilar artery is patent. There is irregular atherosclerosis and up to 80% stenosis seen of the distal vertebral arteries bilaterally. The left vertebral artery is dominant. CAROTID CTA AORTIC ARCH: There is mild atherosclerosis of the aorta. There is normal three-vessel anatomy. RIGHT CAROTIDS: The right common and internal carotid arteries are patent. There is mild stenosis secondary to atherosclerosis seen of the right carotid bulb and proximal right internal carotid artery. No dissection. LEFT CAROTIDS: The left common and internal carotid arteries are patent. There is minimal stenosis secondary to atherosclerosis seen of the left carotid bulb. No dissection. RIGHT VERTEBRAL: V1 through V3 segments are patent. Up to 80% stenosis of the V4 segment, unchanged. No dissection. LEFT VERTEBRAL: V1 through the 3 segments are patent. Up to 80% stenosis of the V4 segment, unchanged. No dissection. NON-VASCULAR SOFT TISSUES: There is a rim calcified 1.6 cm right thyroid nodule. No evidence of adenopathy or mass. BONES: There is degenerative change through out the cervical spine. LUNG APICES: The lung apices are clear. OTHER: No other significant finding. IMPRESSION: 1. No acute intracranial abnormality. 2. 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 3. Mild global atrophy and chronic small vessel ischemic change. 4. Stable right subdural collection, measuring up to 5 mm in greatest thickness. 5. 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 6. Stable severe stenosis of the right P1 segment. 7. 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 8. Up to 80% stenosis of the V4 segments of the vertebral arteries bilaterally, unchanged. 9. Mild stenosis of the right carotid bulb and proximal right internal carotid artery, unchanged. 10. Minimal stenosis of the left carotid bulb, unchanged. 11. 1.6 cm rim calcified right thyroid nodule. Recommend further evaluation with dedicated thyroid ultrasound. Findings were discussed with Dr. Potts at 00:18 on 05/20/2025 . RBV. THIS IS AN ELECTRONICALLY VERIFIED FINAL REPORT 05/20/2025 12:43 AM - Electronically signed by Hattie Boss M.D. SN: SN Report ID: [id number] Reading Location: [id number] Procedure Note Hattie Boss MD - 05/20/2025 EXAM DESCRIPTION: CT STROKE HEAD WO CONTRAST; CTA STROKE HEAD NECK W WO CONTRAST REASON FOR STUDY: Stroke Pt to ED by EMS from home with complaints of altered mental status. Pt wasDC from hospital today. Pt family stated that she was not able to get wordsout. Unknown last known well. Pt AO4 on arrival with history of dementia. Pt is struggling to get words out ; stroke Pt to ED by EMS from home with complaints of altered mental status. Pt wasDC from hospital today. Pt family stated that she was not able to get wordsout. Unknown last known well. Pt AO4 on arrival with history of dementia. Pt is struggling to get words out TECHNIQUE: Axial images were first obtained through the brain without contrast. Axial dynamic scanning technique with dynamic contrast enhancement throughthe intracranial and extracranial carotid and vertebral arteries. Multiplanar reconstruction. All stenosis measurements are based on NASCET criteria.RAPID angiography summary assessment was performed. 3D MIP images rendered on scanning unit and reviewed at time of interpretation. Automated exposure control was used as a dose optimization technique forthis examination. CONTRAST TYPE/DOSE: 75mL of IOVERSOL 350 MG IODINE/ML INTRAVENOUSSYRINGE injected via intravenous COMPARISON: Comparison is made to multiple previous studies, the mostrecent CT of the head and CTA of the head and neck of May 13, 2025. FINDINGS: HEAD BRAIN: There is no midline shift, mass or mass effect. The ventricles, cisterns and sulci are mildly, globally and proportionally prominent consistent with atrophy. There is normal differentiation of the youngblood-white matter. There is an old right centrum semiovale and right basal ganglia infarct, unchanged.. There is decreased attenuation in theperiventricular white matter, nonspecific, but likely related to small vessel ischemicchange. There is no significant change as compared to previous study. EXTRA-AXIAL SPACES: There is stable right subdural collection, mildly hyperattenuating, measuring up to 5 mm in its area of greatest thicknessover the right frontal lobe. CALVARIUM: No fracture. Right frontal ron hole defect is again seen, unchanged. SINUSES/MASTOIDS: There is debris in the right sphenoid sinus. Theremaining paranasal sinuses and mastoid air cells are clear. ORBITS: No significant abnormality. INTRACRANIAL VESSELS ANTERIOR CIRCULATION: There is heavy atherosclerosis of the carotidsiphons bilaterally. The carotid siphons appear patent bilaterally. The rightA1 segment is patent. 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 There areirregular areas of mild stenosis in the left A2 segment. The anteriorcommunicating artery is patent. There is a long segment of severe stenosis in theright M1 segment measuring approximately 9 mm in length. There is a short segmentof severe stenosis in the left M1 segment measuring approximately 5 mm inlength. The distal branches opacify normally. POSTERIOR CIRCULATION: There is a 4-5 mm segment of severe stenosis inthe right P1 segment. There is marked hypoplasia versus severe stenosis ofthe left P1 segment with distal opacification from the left posterior communicating artery, unchanged from previous. The basilar artery is patent. There is irregular atherosclerosis and up to 80% stenosis seenof the distal vertebral arteries bilaterally. The left vertebral artery is dominant. CAROTID CTA AORTIC ARCH: There is mild atherosclerosis of the aorta. There is normal three-vessel anatomy. RIGHT CAROTIDS: The right common and internal carotid arteries arepatent. There is mild stenosis secondary to atherosclerosis seen of the rightcarotid bulb and proximal right internal carotid artery. No dissection. LEFT CAROTIDS: The left common and internal carotid arteries are patent. There is minimal stenosis secondary to atherosclerosis seen of the left carotid bulb. No dissection. RIGHT VERTEBRAL: V1 through V3 segments are patent. Up to 80% stenosisof the V4 segment, unchanged. No dissection. LEFT VERTEBRAL: V1 through the 3 segments are patent. Up to 80% stenosisof the V4 segment, unchanged. No dissection. NON-VASCULAR SOFT TISSUES: There is a rim calcified 1.6 cm right thyroid nodule. No evidence of adenopathy or mass. BONES: There is degenerative change through out the cervical spine. LUNG APICES: The lung apices are clear. OTHER: No other significant finding. IMPRESSION: 1. No acute intracranial abnormality. 2. Old right centrum semiovale and right basal ganglia infarct,unchanged. 3. Mild global atrophy and chronic small vessel ischemic change. 4. Stable right subdural collection, measuring up to 5 mm in greatest thickness. 5. Stable severe stenosis of the M1 segments of the middle cerebralarteries bilaterally. 6. Stable severe stenosis of the right P1 segment. 7. Stable marked hypoplasia versus long segment severe stenosis of theleft P1 segment. 8. Up to 80% stenosis of the V4 segments of the vertebral arteries bilaterally, unchanged. 9. Mild stenosis of the right carotid bulb and proximal right internal carotid artery, unchanged. 10. Minimal stenosis of the left carotid bulb, unchanged. 11. 1.6 cm rim calcified right thyroid nodule. Recommend furtherevaluation with dedicated thyroid ultrasound. Findings were discussed with Dr. Potts at 00:18 on 05/20/2025 .RBV. THIS IS AN ELECTRONICALLY VERIFIED FINAL REPORT 05/20/2025 12:43 AM - Electronically signed by Hattie Boss M.D. SN: SN Report ID: [id number] Reading Location: [place] [address] Liat Potts MD IM CT PROCEDURES Final R esult * (ABNORMAL) Troponin T high-sensitivity series (baseline, 2hr, 4hr, 6hr) (05/19/2025 11:48 PM CDT) Trop T hs 17(H) <=14 ng/L Comment: Interpretive Data For further hscTnT resources including the diagnostic algorithm and an aid in interpretation, copy and paste this link: [email or web address]/[email or web address] Current Interpretive Data last revised 2020. Blood 05/19/2025 11:4 8 PM CDT 05/19/2025 11:55 PM CDT us Liat Potts MD LAB BLOOD ORDERABLES Aracelis l Result DARINEL RICHTER [place]) 1 [facility] [place] [email or web address] [address] * (ABNORMAL) Sepsis Lactate w/ Reflex (05/19/2025 11:48 PM CDT) Sepsis Lactate 2.9(H) 0.7 - 2.0 mmol/L Blood 05/19/2025 11:4 8 PM CDT 05/19/2025 11:55 PM CDT us Liat Potts MD LAB BLOOD ORDERABLES Aracelis l Result Performing Organization Address City/[facility] Co de Phone Number DARINEL RICHTER ([place]) 1 [facility] [place] [email or web address] [address] * eGFR (05/19/2025 11:48 PM CDT) eGFR 63 >=60 mL/min/1. 73 m2 Comment: Interpretive Data [...] interpretive data was last reviewed 2021. Blood 05/19/2025 11:4 8 PM CDT 05/19/2025 11:55 PM CDT us Liat Potts MD LAB BLOOD ORDERABLES Aracelis alvarenga Result DARINEL RICHTER ([place]) 1 [facility] [place] [address] * (ABNORMAL) Differential, auto (05/19/2025 11:48 PM CDT) Neutrophil abs 3.96 1.50 - 6.50 K/cumm Imm gran abs 0.02 0.00 - 0.10 K/cumm [facility] ([place]) Lymphocyte abs 4.30(H) 0.80 - 3.30 K/cumm [facility] ([place]) Monocyte abs 0.43 0.20 - 0.80 K/cumm [facility] ([place]) Eosinophil abs 0.55(H) 0.00 - 0.50 K/cumm [facility] ([place]) Basophil abs 0.08 0.00 - 0.10 K/cumm [facility] ([place]) Neutrophil pct 42.4 % [facility] ([place]) Comment: Interpretive Data Percent cell count reference ranges are not reported, since discordance with absolute values may lead to misinterpretation of CBC data. Current Interpretive Data was last revised on 2018. Imm gran pct 0.2 % [facility] ([place]) Comment: Interpretive Data Percent cell count reference ranges are not reported, since discordance with absolute values may lead to misinterpretation of CBC data. Current Interpretive Data was last revised on 2018. Lymphocyte pct 46.0 % [facility] ([place]) Comment: Interpretive Data Percent cell count reference ranges are not reported, since discordance with absolute values may lead to misinterpretation of CBC data. Current Interpretive Data was last revised on 2018. Monocyte pct 4.6 % [facility] ([place]) Comment: Interpretive Data Percent cell count reference ranges are not reported, since discordance with absolute values may lead to misinterpretation of CBC data. Current Interpretive Data was last revised on 2018. Eosinophil pct 5.9 % [facility] ([place]) Comment: Interpretive Data Percent cell count reference ranges are not reported, since discordance with absolute values may lead to misinterpretation of CBC data. Current Interpretive Data was last revised on 2018. Basophil pct 0.9 % [facility] ([place]) Comment: Interpretive Data Percent cell count reference ranges are not reported, since discordance with absolute values may lead to misinterpretation of CBC data. Current Interpretive Data was last revised on 2018. Blood 05/19/2025 11:4 8 PM CDT 05/19/2025 11:54 PM CDT us Liat Potts MD LAB BLOOD ORDERABLES Aracelis alvarenga Result [facility] ([place]) 1 [facility] [place] [address] * (ABNORMAL) CBC with auto differential (05/19/2025 11:48 PM CDT) WBC 9.34 3.80 - 9.90 K/cumm Hgb 10.5(L) 11.9 - 15.5 g/dL [facility] ([place]) Hct 31.3(L) 35.6 - 45.5 % [facility] ([place]) Plt 294 150 - 400 K/cumm [facility] ([place]) MPV 9.9 9.1 - 12.3 fL [facility] ([place]) RBC 3.70(L) 3.90 - 5.20 M/cumm [facility] ([place]) MCV 84.6 81.3 - 96.4 fL [facility] ([place]) MCH 28.4 27.1 - 33.3 pg [facility] ([place]) MCHC 33.5 32.3 - 35.7 g/dL [facility] ([place]) RDW CV 13.3 11.1 - 14.9 % [facility] ([place]) RDW SD 40.6 35.7 - 48.1 fL [facility] ([place]) NRBC abs 0.00 0.00 - 0.01 K/cumm [facility] ([place]) Blood 05/19/2025 11:4 8 PM CDT 05/19/2025 11:54 PM CDT Liat Potts MD LAB BLOOD ORDERABLES Aracelis alvarenga Result [facility] ([place]) 1 [facility] [place] [address] * (ABNORMAL) Comprehensive metabolic panel (05/19/2025 11:48 PM CDT) Sodium 137 135 - 145 mmol/L Potassium, pl 4.1 3.3 - 4.9 mmol/L [facility] ([place]) Chloride 98 97 - 110 mmol/L [facility] ([place]) CO2 20(L) 22 - 32 mmol/L [facility] ([place]) Anion gap 19(H) 2 - 15 mmol/L [facility] ([place]) BUN 17 6 - 25 mg/dL [facility] ([place]) Creatinine 0.97 0.60 - 1.10 mg/dL [facility] ([place]) Glucose 142 70 - 199 mg/dL [facility] ([place]) [...] interpretive data was last revised 2022. Calcium 10.0 8.5 - 10.3 mg/dL [facility] ([place]) Bilirubin, total 0.4 0.1 - 1.2 mg/dL [facility] ([place]) Protein, pl 7.0 6.5 - 8.5 g/dL [facility] ([place]) Albumin 4.0 3.5 - 5.0 g/dL [facility] ([place]) Alk phos 168(H) 40 - 130 Units/L [facility] ([place]) ALT 27 7 - 45 Units/L [facility] ([place]) AST 19 10 - 45 Units/L [facility] ([place]) Blood 05/19/2025 11:4 8 PM CDT 05/19/2025 11:55 PM CDT Liat Potts MD LAB BLOOD ORDERABLES Aracelis l Result Performing Organization Address City/[facility]/ZIP Co de Phone Number DARINEL RICHTER ([place]) 1 [facility] [place] [address] * POCT glucose (05/19/2025 11:11 AM CDT) Glucose, POC 160 70 - 199 mg/dL Blood 05/19/2025 11:1 1 AM CDT 05/19/2025 11:11 AM CDT Beverly Goff DO LAB POCT ORDERABLES - DE VICE Final Result Performing Organization Address [facility] Co de Phone Number DARINEL RICHTER ([place]) 1 [facility] [email or web address] [address] * POCT glucose (05/19/2025 7:56 AM CDT) Glucose, POC 124 70 - 199 mg/dL Blood 05/19/2025 7:56 AM CDT 05/19/2025 7:56 AM CDT Beverly Goff DO LAB POCT ORDERABLES - DE VICE Final Result Performing Organization Address [facility] Co de Phone Number DARINEL RICHTER ([place]) 1 [facility] [place] [email or web address] [address] * eGFR (05/19/2025 4:19 AM CDT) eGFR 62 >=60 mL/min/1. 73 m2 Comment: Interpretive Data [...] interpretive data was last reviewed 2021. Blood 05/19/2025 4:19 AM CDT 05/19/2025 6:40 AM CDT us Beverly Goff DO LAB BLOOD ORDERABLES Fin al Result [facility] ([place]) 1 [facility] [place] [address] * (ABNORMAL) Differential, auto (05/19/2025 4:19 AM CDT) Neutrophil abs 4.22 1.50 - 6.50 K/cumm Imm gran abs 0.02 0.00 - 0.10 K/cumm [facility] ([place]) Lymphocyte abs 4.90(H) 0.80 - 3.30 K/cumm [facility] ([place]) Monocyte abs 0.51 0.20 - 0.80 K/cumm [facility] ([place]) Eosinophil abs 0.56(H) 0.00 - 0.50 K/cumm [facility] ([place]) Basophil abs 0.07 0.00 - 0.10 K/cumm [facility] ([place]) Neutrophil pct 41.0 % [facility] ([place]) Comment: Interpretive Data Percent cell count reference ranges are not reported, since discordance with absolute values may lead to misinterpretation of CBC data. Current Interpretive Data was last revised on 2018. Imm gran pct 0.2 % [facility] ([place]) Comment: Interpretive Data Percent cell count reference ranges are not reported, since discordance with absolute values may lead to misinterpretation of CBC data. Current Interpretive Data was last revised on 2018. Lymphocyte pct 47.7 % [facility]UC[facility] R [facility] ([place]) Comment: Interpretive Data Percent cell count reference ranges are not reported, since discordance with absolute values may lead to misinterpretation of CBC data. Current Interpretive Data was last revised on 2018. Monocyte pct 5.0 % DARINEL RICHTER ([place]) Comment: Interpretive Data Percent cell count reference ranges are not reported, since discordance with absolute values may lead to misinterpretation of CBC data. Current Interpretive Data was last revised on 2018. Eosinophil pct 5.4 % [facility] ([place]) Comment: Interpretive Data Percent cell count reference ranges are not reported, since discordance with absolute values may lead to misinterpretation of CBC data. Current Interpretive Data was last revised on 2018. Basophil pct 0.7 % DARINEL RICHTER ([place]) Comment: Interpretive Data Percent cell count reference ranges are not reported, since discordance with absolute values may lead to misinterpretation of CBC data. Current Interpretive Data was last revised on 2018. Blood 05/19/2025 4:19 AM CDT 05/19/2025 5:30 AM CDT us Beverly Goff DO LAB BLOOD ORDERABLES Fin al Result DARINEL RICHTER ([place]) 1 [facility] [place] [address] * (ABNORMAL) CBC with auto differential (05/19/2025 4:19 AM CDT) WBC 10.28(H) 3.80 - 9.90 K/cumm Hgb 9.2(L) 11.9 - 15.5 g/dL DARINEL RICHTER ([place]) Hct 27.7(L) 35.6 - 45.5 % DARINEL RICHTER ([place]) Plt 226 150 - 400 K/cumm DARINEL RICHTER ([place]) MPV 10.5 9.1 - 12.3 fL [facility] ([place]) RBC 3.21(L) 3.90 - 5.20 M/cumm [facility] MCV 86.3 81.3 - 96.4 fL [facility] ([place]) MCH 28.7 27.1 - 33.3 pg [facility] ([place]) MCHC 33.2 32.3 - 35.7 g/dL [facility] ([place]) RDW CV 13.5 11.1 - 14.9 % [facility] ([place]) RDW SD 41.8 35.7 - 48.1 fL [facility] NRBC abs 0.00 0.00 - 0.01 K/cumm [facility] Blood 05/19/2025 4:19 AM CDT 05/19/2025 5:30 AM CDT Beverly Goff DO LAB BLOOD ORDERABLES Fin al Result Performing Organization Address City/[facility]/ZIP Co de Phone Number DARINEL RICHTER ([place]) 1 [facility] [place] [address] * Phosphorus (05/19/2025 4:19 AM CDT) Phosphorus, pl 3.7 2.3 - 4.5 mg/dL Blood 05/19/2025 4:19 AM CDT 05/19/2025 5:30 AM CDT Beverly Goff DO LAB BLOOD ORDERABLES Fin al Result Performing Organization Address City/State/[facility] Co de Phone Number DARINEL [facility] ([place]) 1 [facility] [place] [address] * Magnesium (05/19/2025 4:19 AM CDT) Magnesium 1.5 1.4 - 2.5 mg/dL Blood 05/19/2025 4:19 AM CDT 05/19/2025 5:30 AM CDT Beverly Goff DO LAB BLOOD ORDERABLES Fin al Result [facility] ([place]) 1 [facility] [place] [address] * (ABNORMAL) Comprehensive metabolic panel (05/19/2025 4:19 AM CDT) Sodium 140 135 - 145 mmol/L Potassium, pl 3.9 3.3 - 4.9 mmol/L [facility] ([place]) Chloride 103 97 - 110 mmol/L [facility] ([place]) CO2 20(L) 22 - 32 mmol/L [facility] ([place]) Anion gap 17(H) 2 - 15 mmol/L [facility] ([place]) BUN 20 6 - 25 mg/dL [facility] ([place]) Creatinine 0.99 0.60 - 1.10 mg/dL [facility] ([place]) Glucose 129 70 - 199 mg/dL [facility] ([place]) [...] 2022. Calcium 9.2 8.5 - 10.3 mg/dL [facility] ([place]) Bilirubin, total 0.2 0.1 - 1.2 mg/dL [facility] ([place]) Protein, pl 6.1(L) 6.5 - 8.5 g/dL [facility] ([place]) Albumin 3.5 3.5 - 5.0 g/dL [facility] ([place]) Alk phos 140(H) 40 - 130 Units/L [facility] ([place]) ALT 23 7 - 45 Units/L [facility] ([place]) AST 16 10 - 45 Units/L [facility] ([place]) Blood 05/19/2025 4:19 AM CDT 05/19/2025 5:30 AM CDT Beverly Goff DO LAB BLOOD ORDERABLES Fin al Result DARINEL RICHTER ([place]) 1 [facility] [email or web address] [address] * POCT glucose (05/19/2025 2:33 AM CDT) Glucose, POC 132 70 - 199 mg/dL Blood 05/19/2025 2:33 AM CDT 05/19/2025 2:33 AM CDT Beverly Goff DO LAB POCT ORDERABLES - DE VICE Final Result DARINEL RICHTER ([place]) 1 [facility] [place] [email or web address] [address] * POCT glucose (05/18/2025 9:44 PM CDT) Glucose, POC 170 70 - 199 mg/dL Blood 05/18/2025 9:44 PM CDT 05/18/2025 9:44 PM CDT Beverly Goff DO LAB POCT ORDERABLES - DE VICE Final Result DARINEL RICTHER ([place]) 1 [facility] [place] [email or web address] [address] * POCT glucose (05/18/2025 4:31 PM CDT) Glucose, POC 162 70 - 199 mg/dL Blood 05/18/2025 4:31 PM CDT 05/18/2025 4:31 PM CDT Beverly Goff DO LAB POCT ORDERABLES - DE VICE Final Result DARINEL RICHTER ([place]) 1 [facility] [place] [email or web address] [address] * POCT glucose (05/18/2025 11:44 AM CDT) Glucose, POC 149 70 - 199 mg/dL Blood 05/18/2025 11:4 4 AM CDT 05/18/2025 11:44 AM CDT Beverly Goff DO LAB POCT ORDERABLES - DE VICE Final Result DARINEL RICHTER ([place]) 1 [place] [address] * POCT glucose (05/18/2025 7:36 AM CDT) Glucose, POC 154 70 - 199 mg/dL Blood 05/18/2025 7:36 AM CDT 05/18/2025 7:36 AM CDT Beverly Goff DO LAB POCT ORDERABLES - DE VICE Final Result DARINEL RICHTER ([place]) 1 [place] [address] * (ABNORMAL) eGFR (05/18/2025 4:54 AM CDT) eGFR 50(L) >=60 mL/min/1. 73 m2 Comment: Interpretive Data [...] interpretive data was last reviewed 2021. Blood 05/18/2025 4:54 AM CDT 05/18/2025 5:15 AM CDT us Beverly Goff DO LAB BLOOD ORDERABLES Fin al Result [facility] ([place]) 1 [facility] [place] [address] * (ABNORMAL) Differential, auto (05/18/2025 4:54 AM CDT) Neutrophil abs 3.71 1.50 - 6.50 K/cumm Imm gran abs 0.02 0.00 - 0.10 K/cumm [facility] ([place]) Lymphocyte abs 4.34(H) 0.80 - 3.30 K/cumm [facility] ([place]) Monocyte abs 0.55 0.20 - 0.80 K/cumm [facility] ([place]) Eosinophil abs 0.52(H) 0.00 - 0.50 K/cumm [facility] ([place]) Basophil abs 0.05 0.00 - 0.10 K/cumm [facility] ([place]) Neutrophil pct 40.4 % [facility] ([place]) Comment: Interpretive Data Percent cell count reference ranges are not reported, since discordance with absolute values may lead to misinterpretation of CBC data. Current Interpretive Data was last revised on 2018. Imm gran pct 0.2 % [facility] ([place]) Comment: Interpretive Data Percent cell count reference ranges are not reported, since discordance with absolute values may lead to misinterpretation of CBC data. Current Interpretive Data was last revised on 2018. Lymphocyte pct 47.2 % [facility] ([place]) Comment: Interpretive Data Percent cell count reference ranges are not reported, since discordance with absolute values may lead to misinterpretation of CBC data. Current Interpretive Data was last revised on 2018. Monocyte pct 6.0 % [facility] ([place]) Comment: Interpretive Data Percent cell count reference ranges are not reported, since discordance with absolute values may lead to misinterpretation of CBC data. Current Interpretive Data was last revised on 2018. Eosinophil pct 5.7 % [facility] ([place]) Comment: Interpretive Data Percent cell count reference ranges are not reported, since discordance with absolute values may lead to misinterpretation of CBC data. Current Interpretive Data was last revised on 2018. Basophil pct 0.5 % [facility] ([place]) Comment: Interpretive Data Percent cell count reference ranges are not reported, since discordance with absolute values may lead to misinterpretation of CBC data. Current Interpretive Data was last revised on 2018. Blood 05/18/2025 4:54 AM CDT 05/18/2025 5:08 AM CDT Beverly Goff DO LAB BLOOD ORDERABLES Fin al Result [facility] ([place]) 1 [facility] [place] [address] * (ABNORMAL) CBC with auto differential (05/18/2025 4:54 AM CDT) WBC 9.19 3.80 - 9.90 K/cumm Hgb 9.0(L) 11.9 - 15.5 g/dL [facility] ([place]) Hct 28.2(L) 35.6 - 45.5 % [facility] ([place]) Plt 219 150 - 400 K/cumm [facility] ([place]) MPV 9.8 9.1 - 12.3 fL [facility] ([place]) RBC 3.21(L) 3.90 - 5.20 M/cumm [facility] ([place]) MCV 87.9 81.3 - 96.4 fL [facility] ([place]) MCH 28.0 27.1 - 33.3 pg [facility] ([place]) MCHC 31.9(L) 32.3 - 35.7 g/dL [facility] ([place]) RDW CV 13.4 11.1 - 14.9 % [facility] ([place]) RDW SD 43.4 35.7 - 48.1 fL [facility] ([place]) NRBC abs 0.00 0.00 - 0.01 K/cumm [facility] ([place]) Blood 05/18/2025 4:54 AM CDT 05/18/2025 5:08 AM CDT Beverly Goff DO LAB BLOOD ORDERABLES [facility] al Result [facility] ([place]) 1 [facility] [place] [address] * (ABNORMAL) Basic metabolic panel (05/18/2025 4:54 AM CDT) Sodium 141 135 - 145 mmol/L Potassium, pl 4.0 3.3 - 4.9 mmol/L [facility] ([place]) Chloride 106 97 - 110 mmol/L [facility] CO2 22 22 - 32 mmol/L [facility] ([place]) Anion gap 13 2 - 15 mmol/L [facility] ([place] BUN 21 6 - 25 mg/dL [facility] ([place]) Creatinine 1.18(H) 0.60 - 1.10 mg/dL [facility] ([place]) Glucose 173 70 - 199 mg/dL [facility] ([place]) Comment: Interpretive Data Fasting glucose [...] interpretive data was last revised 2022. Calcium 9.1 8.5 - 10.3 mg/dL [facility] ([place]) Blood 05/18/2025 4:54 AM CDT 05/18/2025 5:15 AM CDT Beverly Goff DO LAB BLOOD ORDERABLES Fin al Result DARINEL RICHTER ([place]) 1 [facility] [place] [email or web address] [address] * POCT glucose (05/18/2025 2:24 AM CDT) Glucose, POC 182 70 - 199 mg/dL Blood 05/18/2025 2:24 AM CDT 05/18/2025 2:24 AM CDT Beverly Goff DO LAB POCT ORDERABLES - DE VICE Final Result DARINEL RICHTER ([place]) 1 [facility] [place] [email or web address] [address] * (ABNORMAL) POCT glucose (05/17/2025 8:25 PM CDT) Glucose, POC 259(H) 70 - 199 mg/dL Blood 05/17/2025 8:25 PM CDT 05/17/2025 8:25 PM CDT Beverly Goff DO LAB POCT ORDERABLES - DE VICE Final Result DARINEL RICHTER ([place]) 1 [facility] [place] [email or web address] [address] * POCT glucose (05/17/2025 4:17 PM CDT) Glucose, POC 174 70 - 199 mg/dL Blood 05/17/2025 4:17 PM CDT 05/17/2025 4:17 PM CDT Beverly Goff DO LAB POCT ORDERABLES - DE VICE Final Result DARINEL RICHTER ([place]) 1 [facility] [place] [email or web address] [address] * (ABNORMAL) POCT glucose (05/17/2025 11:20 AM CDT) Glucose, POC 249(H) 70 - 199 mg/dL Blood 05/17/2025 11:2 0 AM CDT 05/17/2025 11:20 AM CDT Beverly Goff DO LAB POCT ORDERABLES - DE VICE Final Result [facility] ([place]) 1 [facility] [email or web address] [address] * POCT glucose (05/17/2025 7:54 AM CDT) Glucose, POC 178 70 - 199 mg/dL Blood 05/17/2025 7:54 AM CDT 05/17/2025 7:54 AM CDT Beverly Goff DO LAB POCT ORDERABLES - DE VICE Final Result Performing Organization Address City/[facility] Co de Phone Number [facility] ([place]) 1 [facility] [place] [email or web address] [address] * (ABNORMAL) eGFR (05/17/2025 5:55 AM CDT) eGFR 57(L) >=60 mL/min/1. 73 m2 Comment: Interpretive Data [...] interpretive data was last reviewed 2021. Blood 05/17/2025 5:55 AM CDT 05/17/2025 6:19 AM CDT Beverly Goff DO LAB BLOOD ORDERABLES Fin al Result D[facility]INEL [facility] ([place]) 1 [facility] [place] [address] * (ABNORMAL) Differential, auto (05/17/2025 5:55 AM CDT) Neutrophil abs 4.90 1.50 - 6.50 K/cumm Imm gran abs 0.03 0.00 - 0.10 K/cumm [facility] ([place]) Lymphocyte abs 3.60(H) 0.80 - 3.30 K/cumm [facility] ([place]) Monocyte abs 0.48 0.20 - 0.80 K/cumm [facility] ([place]) Eosinophil abs 0.51(H) 0.00 - 0.50 K/cumm [facility] ([place]) Basophil abs 0.04 0.00 - 0.10 K/cumm [facility] ([place]) Neutrophil pct 51.3 % [facility] ([place]) Comment: Interpretive Data Percent cell count reference [...] was last revised on 2018. Lymphocyte pct 37.7 % [facility] ([place]) Comment: Interpretive Data Percent cell count reference ranges are not reported, since discordance with absolute values may lead to misinterpretation of CBC data. Current Interpretive Data was last revised on 2018. Monocyte pct 5.0 % [facility] ([place]) Comment: Interpretive Data Percent cell count reference ranges are not reported, since discordance with absolute values may lead to misinterpretation of CBC data. Current Interpretive Data was last revised on 2018. Eosinophil pct 5.3 % [facility] ([place]) Comment: Interpretive Data Percent cell count reference ranges are not reported, since discordance with absolute values may lead to misinterpretation of CBC data. Current Interpretive Data was last revised on 2018. Basophil pct 0.4 % [facility] ([place]) Comment: Interpretive Data Percent cell count reference ranges are not reported, since discordance with absolute values may lead to misinterpretation of CBC data. Current Interpretive Data was last revised on 2018. Blood 05/17/2025 5:55 AM CDT 05/17/2025 6:20 AM CDT us Beverly Goff DO LAB BLOOD ORDERABLES Fin al Result [facility] ([place]) 1 [facility] [place] [address] * (ABNORMAL) CBC with auto differential (05/17/2025 5:55 AM CDT) WBC 9.56 3.80 - 9.90 K/cumm Hgb 9.8(L) 11.9 - 15.5 g/dL [facility] ([place]) Hct 29.4(L) 35.6 - 45.5 % [facility] ([place]) Plt 241 150 - 400 K/cumm [facility] ([place]) MPV 9.9 9.1 - 12.3 fL [facility] ([place]) RBC 3.47(L) 3.90 - 5.20 M/cumm [facility] ([place]) MCV 84.7 81.3 - 96.4 fL [facility] ([place]) MCH 28.2 27.1 - 33.3 pg [facility] ([place]) MCHC 33.3 32.3 - 35.7 g/dL [facility] ([place]) RDW CV 13.5 11.1 - 14.9 % [facility] ([place]) RDW SD 41.5 35.7 - 48.1 fL [facility] ([place]) NRBC abs 0.00 0.00 - 0.01 K/cumm [facility] ([place]) Blood 05/17/2025 5:55 AM CDT 05/17/2025 6:20 AM CDT [facility] [employer] LAB BLOOD ORDERABLES Fin al Result Performing Organization Address City/[facility]/ZIP Co de Phone Number DARINEL [facility] ([place]) [address] [facility] [email or web address] [address] * Phosphorus (05/17/2025 5:55 AM CDT) Phosphorus, pl 3.3 2.3 - 4.5 mg/dL Blood 05/17/2025 5:55 AM CDT 05/17/2025 6:19 AM CDT [facility] [employer] LAB BLOOD ORDERABLES Fin al Result Performing Organization Address [facility] de Phone Number [facility] ([place]) [address] [place] [address] * Magnesium (05/17/2025 5:55 AM CDT) Pathologist [facility] Magnesium 1.6 1.4 - 2.5 mg/dL Blood 05/17/2025 5:55 AM CDT 05/17/2025 6:19 AM CDT [facility] [employer] LAB BLOOD ORDERABLES Fin al Result Performing Organization Address [facility] de Phone Number DARINEL [facility] ([place]) 1 [facility] [email or web address] [address] * (ABNORMAL) Comprehensive metabolic panel (05/17/2025 5:55 AM CDT) Sodium 142 135 - 145 mmol/L Potassium, pl 3.5 3.3 - 4.9 mmol/L [facility] ([place]) Chloride 105 97 - 110 mmol/L [facility] ([place]) CO2 23 22 - 32 mmol/L [facility] ([place]) Anion gap 14 2 - 15 mmol/L [facility] ([place]) BUN 17 6 - 25 mg/dL [facility] ([place]) Creatinine 1.06 0.60 - 1.10 mg/dL [facility] ([place]) Glucose 150 70 - 199 mg/dL [facility] ([place]) [...] interpretive data was last revised 2022. Calcium 9.5 8.5 - 10.3 mg/dL [facility] ([place]) Bilirubin, total 0.3 0.1 - 1.2 mg/dL [facility] ([place]) Protein, pl 6.7 6.5 - 8.5 g/dL [facility] ([place]) Albumin 3.9 3.5 - 5.0 g/dL [facility] ([place]) Alk phos 135(H) 40 - 130 Units/L [facility] ([place]) ALT 19 7 - 45 Units/L [facility] ([place]) AST 16 10 - 45 Units/L [facility] ([place]) Blood 05/17/2025 5:55 AM CDT 05/17/2025 6:19 AM CDT us Beverly Goff DO LAB BLOOD ORDERABLES Fin al Result [facility] ([place]) 1 [facility] Department [place] [address] * POCT glucose (05/17/2025 1:38 AM CDT) Glucose, POC 147 70 - 199 mg/dL Blood 05/17/2025 1:38 AM CDT 05/17/2025 1:38 AM CDT Beverly Goff DO LAB POCT ORDERABLES - DE VICE Final Result DARINEL STINSONN) 1 [facility] [place] [email or web address] [address] * POCT glucose (05/16/2025 8:49 PM CDT) Glucose, POC 161 70 - 199 mg/dL Blood 05/16/2025 8:49 PM CDT 05/16/2025 8:49 PM CDT Beverly Goff DO LAB POCT ORDERABLES - DE VICE Final Result Performing Organization Address City/[facility]/ZIP Co de Phone Number DARINEL RICHTER ([place]) 1 [facility] [place] [email or web address] [address] * POCT glucose (05/16/2025 4:20 PM CDT) Glucose, POC 166 70 - 199 mg/dL Blood 05/16/2025 4:20 PM CDT 05/16/2025 4:20 PM CDT Beverly Goff DO LAB POCT ORDERABLES - DE VICE Final Result Performing Organization Address City/[facility] Co de Phone Number DARINEL RICHTER ([place]) 1 [facility] [email or web address] [address] * (ABNORMAL) eGFR (05/16/2025 11:51 AM CDT) eGFR 59(L) >=60 mL/min/1. 73 m2 Comment: Interpretive Data [...] interpretive data was last reviewed 2021. Blood 05/16/2025 11:5 1 AM CDT 05/16/2025 12:21 PM CDT Beverly Goff DO LAB BLOOD ORDERABLES Fin al Result [facility] ([place]) 1 [facility] [place] [address] * Differential, auto (05/16/2025 11:51 AM CDT) Neutrophil abs 5.49 1.50 - 6.50 K/cumm Imm gran abs 0.02 0.00 - 0.10 K/cumm [facility] ([place]) Lymphocyte abs 2.88 0.80 - 3.30 K/cumm [facility] ([place]) Monocyte abs 0.42 0.20 - 0.80 K/cumm [facility] ([place]) Eosinophil abs 0.49 0.00 - 0.50 K/cumm [facility] ([place]) Basophil abs 0.04 0.00 - 0.10 K/cumm [facility] ([place]) Neutrophil pct 58.9 % [facility] ([place]) Comment: Interpretive Data Percent cell count reference ranges are not reported, since discordance with absolute values may lead to misinterpretation of CBC data. Current Interpretive Data was last revised on 2018. Imm gran pct 0.2 % [facility] ([place]) Comment: Interpretive Data Percent cell count reference ranges are not reported, since discordance with absolute values may lead to misinterpretation of CBC data. Current Interpretive Data was last revised on 2018. Lymphocyte pct 30.8 % [facility] ([place]) Comment: Interpretive Data Percent cell count reference ranges are not reported, since discordance with absolute values may lead to misinterpretation of CBC data. Current Interpretive Data was last revised on 2018. Monocyte pct 4.5 % [facility] ([place]) Comment: Interpretive Data Percent cell count reference ranges are not reported, since discordance with absolute values may lead to misinterpretation of CBC data. Current Interpretive Data was last revised on 2018. Eosinophil pct 5.2 % [facility] ([place]) Comment: Interpretive Data Percent cell count reference ranges are not reported, since discordance with absolute values may lead to misinterpretation of CBC data. Current Interpretive Data was last revised on 2018. Basophil pct 0.4 % [facility] ([place]) Comment: Interpretive Data Percent cell count reference ranges are not reported, since discordance with absolute values may lead to misinterpretation of CBC data. Current Interpretive Data was last revised on 2018. Blood 05/16/2025 11:5 1 AM CDT 05/16/2025 12:21 PM CDT us Beverly Goff DO LAB BLOOD ORDERABLES Fin al Result [facility] ([place]) 1 [facility] Department [place] [address] * (ABNORMAL) CBC with auto differential (05/16/2025 11:51 AM CDT) WBC 9.34 3.80 - 9.90 K/cumm Hgb 10.1(L) 11.9 - 15.5 g/dL [facility] ([place]) Hct 30.4(L) 35.6 - 45.5 % [facility] ([place]) Plt 261 150 - 400 K/cumm [facility] ([place]) MPV 9.9 9.1 - 12.3 fL [facility] ([place]) RBC 3.55(L) 3.90 - 5.20 M/cumm [facility] ([place]) MCV 85.6 81.3 - 96.4 fL [facility] ([place]) MCH 28.5 27.1 - 33.3 pg [facility] ([place]) MCHC 33.2 32.3 - 35.7 g/dL [facility] ([place]) RDW CV 13.3 11.1 - 14.9 % [facility] ([place]) RDW SD 42.1 35.7 - 48.1 fL [facility] ([place]) NRBC abs 0.00 0.00 - 0.01 K/cumm [facility] ([place]) Blood 05/16/2025 11:5 1 AM CDT 05/16/2025 12:21 PM CDT Beverly Goff DO LAB BLOOD ORDERABLES Fin al Result DARINEL RICHTER ([place]) 1 [facility] [email or web address] [address] * Phosphorus (05/16/2025 11:51 AM CDT) Phosphorus, pl 3.4 2.3 - 4.5 mg/dL Blood 05/16/2025 11:5 1 AM CDT 05/16/2025 12:21 PM CDT Beverly Goff DO LAB BLOOD ORDERABLES Fin al Result DARINEL RICHTER ([place]) 1 [facility] [email or web address] [address] * Magnesium (05/16/2025 11:51 AM CDT) Magnesium 1.6 1.4 - 2.5 mg/dL Blood 05/16/2025 11:5 1 AM CDT 05/16/2025 12:21 PM CDT Beverly Goff DO LAB BLOOD ORDERABLES Fin al Result DARINEL RICHTER ([place]) 1 [facility] [email or web address] [address] * (ABNORMAL) Comprehensive metabolic panel (05/16/2025 11:51 AM CDT) Sodium 140 135 - 145 mmol/L Potassium, pl 3.4 3.3 - 4.9 mmol/L [facility] ([place]) Chloride 103 97 - 110 mmol/L [facility] ([place]) CO2 22 22 - 32 mmol/L [facility] ([place]) Anion gap 15 2 - 15 mmol/L [facility] ([place]) BUN 16 6 - 25 mg/dL [facility] ([place]) Creatinine 1.03 0.60 - 1.10 mg/dL [facility] ([place]) Glucose 213(H) 70 - 199 mg/dL [facility] ([place]) [...] Calcium 9.6 8.5 - 10.3 mg/dL [facility] ([place]) Bilirubin, total 0.2 0.1 - 1.2 mg/dL [facility] ([place]) Protein, pl 6.8 6.5 - 8.5 g/dL [facility] ([place]) Albumin 3.9 3.5 - 5.0 g/dL [facility] ([place]) Alk phos 130 40 - 130 Units/L [facility] ([place]) ALT 15 7 - 45 Units/L [facility] ([place]) AST 13 10 - 45 Units/L [facility] ([place]) Blood 05/16/2025 11:5 1 AM CDT 05/16/2025 12:21 PM CDT us Beverly Goff DO LAB BLOOD ORDERABLES Fin al Result [facility] ([place]) 1 [facility] [email or web address] [address] * (ABNORMAL) POCT glucose (05/16/2025 11:42 AM CDT) Glucose, POC 227(H) 70 - 199 mg/dL Blood 05/16/2025 11:4 2 AM CDT 05/16/2025 11:42 AM CDT Beverly Goff DO LAB POCT ORDERABLES - DE VICE Final Result DARINEL RICHTER ([place]) 1 [place] [address] * (ABNORMAL) POCT glucose (05/16/2025 7:50 AM CDT) Glucose, POC 205(H) 70 - 199 mg/dL Blood 05/16/2025 7:50 AM CDT 05/16/2025 7:50 AM CDT Beverly Goff DO LAB POCT ORDERABLES - DE VICE Final Result DARINEL RICHTER ([place]) 1 [facility] [email or web address] [address] * POCT glucose (05/16/2025 2:22 AM CDT) Glucose, POC 143 70 - 199 mg/dL Blood 05/16/2025 2:22 AM CDT 05/16/2025 2:22 AM CDT Beverly Goff DO LAB POCT ORDERABLES - DE VICE Final Result DARINEL RICHTER ([place]) 1 [facility] [email or web address] [address] * (ABNORMAL) POCT glucose (05/15/2025 10:32 PM CDT) Glucose, POC 311(H) 70 - 199 mg/dL Blood 05/15/2025 10:3 2 PM CDT 05/15/2025 10:32 PM CDT Beverly Goff LAB POCT ORDERABLES - DE VICE Final Result Performing Organization Address City/[facility]/ZIP Co de Phone Number DARINEL RICHTER ([place]) 1 [facility] [email or web address] [address] * (ABNORMAL) POCT glucose (05/15/2025 8:27 PM CDT) Glucose, POC 431(H) 70 - 199 mg/dL Blood 05/15/2025 8:27 PM CDT 05/15/2025 8:27 PM CDT [facility]LES - DE VICE Final Result Performing Organization Address City/[facility]/ZIP Co de Phone Number [facility] ([place]) 1 [facility] [email or web address] [address] * POCT glucose (05/15/2025 4:49 PM CDT) Glucose, POC 136 70 - 199 mg/dL Blood 05/15/2025 4:49 PM CDT 05/15/2025 4:49 PM CDT [facility] DO LAB POCT ORDERABLES - DE VICE Final Result Performing Organization Address City/[facility]/ZIP Co de Phone Number [facility] ([place]) 1 [facility] [email or web address] [address] * (ABNORMAL) POCT glucose (05/15/2025 11:54 AM CDT) Glucose, POC 296(H) 70 - 199 mg/dL Blood 05/15/2025 11:5 4 AM CDT 05/15/2025 11:54 AM CDT Bevelry Goff DO LAB POCT ORDERABLES - DE VICE Final Result DARINEL BermudezISABELLE) 1 [place] [address] * (ABNORMAL) POCT glucose (05/15/2025 7:57 AM CDT) Glucose, POC 227(H) 70 - 199 mg/dL Blood 05/15/2025 7:57 AM CDT 05/15/2025 7:57 AM CDT Beverly Goff DO LAB POCT ORDERABLES - DE VICE Final Result Performing Organization Address [facility] Co de Phone Number DARINEL BermudezISABELLE) 1 [facility] [email or web address] [address] * (ABNORMAL) eGFR (05/15/2025 3:52 AM CDT) eGFR 56(L) >=60 mL/min/1. 73 [...] interpretive data was last reviewed 2021. Blood 05/15/2025 3:52 AM CDT 05/15/2025 4:28 AM CDT Beverly Goff DO LAB BLOOD ORDERABLES Fin al Result DARINEL RICHTER ([place]) 1 [facility] Department [place] [address] * (ABNORMAL) Differential, auto (05/15/2025 3:52 AM CDT) Neutrophil abs 6.62(H) 1.50 - 6.50 K/cumm Imm gran abs 0.03 0.00 - 0.10 K/cumm [facility] ([place]) Lymphocyte abs 5.19(H) 0.80 - 3.30 K/cumm [facility] ([place]) Monocyte abs 0.69 0.20 - 0.80 K/cumm [facility] ([place]) Eosinophil abs 0.69(H) 0.00 - 0.50 K/cumm [facility] ([place]) Basophil abs 0.08 0.00 - 0.10 K/cumm [facility] ([place]) Neutrophil pct 49.8 % [facility] ([place]) Comment: Interpretive Data Percent cell count reference ranges are not reported, since discordance with absolute values may lead to misinterpretation of CBC data. Current Interpretive Data was last revised on 2018. Imm gran pct 0.2 % [facility] ([place]) Comment: Interpretive Data Percent cell count reference ranges are not reported, since discordance with absolute values may lead to misinterpretation of CBC data. Current Interpretive Data was last revised on 2018. Lymphocyte pct 39.0 % [facility] ([place]) Comment: Interpretive Data Percent cell count reference ranges are not reported, since discordance with absolute values may lead to misinterpretation of CBC data. Current Interpretive Data was last revised on 2018. Monocyte pct 5.2 % [facility] ([place]) Comment: Interpretive Data Percent cell count reference ranges are not reported, since discordance with absolute values may lead to misinterpretation of CBC data. Current Interpretive Data was last revised on 2018. Eosinophil pct 5.2 % [facility] ([place]) Comment: Interpretive Data Percent cell count reference ranges are not reported, since discordance with absolute values may lead to misinterpretation of CBC data. Current Interpretive Data was last revised on 2018. Basophil pct 0.6 % [facility] ([place]) Comment: Interpretive Data Percent cell count reference ranges are not reported, since discordance with absolute values may lead to misinterpretation of CBC data. Current Interpretive Data was last revised on 2018. Blood 05/15/2025 3:52 AM CDT 05/15/2025 4:28 AM CDT Beverly Goff DO LAB BLOOD ORDERABLES Fin al Result [facility] ([place]) 1 [facility] [place] [address] * (ABNORMAL) CBC with auto differential (05/15/2025 3:52 AM CDT) WBC 13.30(H) 3.80 - 9.90 K/cumm Hgb 11.6(L) 11.9 - 15.5 g/dL [facility] ([place]) Hct 35.2(L) 35.6 - 45.5 % [facility] ([place]) Plt 328 150 - 400 K/cumm [facility] ([place]) MPV 9.9 9.1 - 12.3 fL [facility] ([place]) RBC 4.09 3.90 - 5.20 M/cumm [facility] ([place]) MCV 86.1 81.3 - 96.4 fL [facility] ([place]) MCH 28.4 27.1 - 33.3 pg [facility] ([place]) MCHC 33.0 32.3 - 35.7 g/dL [facility] ([place]) RDW CV 13.3 11.1 - 14.9 % [facility] ([place]) RDW SD 41.7 35.7 - 48.1 fL [facility] ([place]) NRBC abs 0.00 0.00 - 0.01 K/cumm [facility] ([place]) Blood 05/15/2025 3:52 AM CDT 05/15/2025 4:28 AM CDT Beverly Alva Rolyjaron DO LAB BLOOD ORDERABLES Fin al Result DARINEL RICHTER ([place]) 1 [place] [address] * Phosphorus (05/15/2025 3:52 AM CDT) Phosphorus, pl 4.2 2.3 - 4.5 mg/dL Blood 05/15/2025 3:52 AM CDT 05/15/2025 4:28 AM CDT Beverly Alva Rolyjaron DO LAB BLOOD ORDERABLES Fin al Result Performing Organization Address City/[facility]/ZIP Co de Phone Number DARINEL RICHTER ([place]) 1 [facility] [email or web address] [address] * Magnesium (05/15/2025 3:52 AM CDT) Pathologist [facility] Magnesium 1.8 1.4 - 2.5 mg/dL Blood 05/15/2025 3:5 2 AM CDT 05/15/2025 4:28 AM CDT Beverly Goff DO LAB BLOOD ORDERABLES Fin al Result Performing Organization Address City/[facility]/ZIP Co de Phone Number DARINEL RICHTER ([place]) 1 [place] [address] * (ABNORMAL) Comprehensive metabolic panel (05/15/2025 3:52 AM CDT) Sodium 140 135 - 145 mmol/L Potassium, pl 3.7 3.3 - 4.9 mmol/L [facility] ([place]) Chloride 103 97 - 110 mmol/L [facility] ([place]) CO2 19(L) 22 - 32 mmol/L [facility] ([place]) Anion gap 18(H) 2 - 15 mmol/L [facility] ([place]) BUN 16 6 - 25 mg/dL [facility] ([place]) Creatinine 1.07 0.60 - 1.10 mg/dL [facility] ([place]) Glucose 225(H) 70 - 199 mg/dL [facility] ([place]) [...] interpretive data was last revised 2022. Calcium 10.2 8.5 - 10.3 mg/dL [facility] ([place]) Bilirubin, total 0.3 0.1 - 1.2 mg/dL [facility] ([place]) Protein, pl 7.9 6.5 - 8.5 g/dL [facility] ([place]) Albumin 4.5 3.5 - 5.0 g/dL [facility] ([place]) Alk phos 153(H) 40 - 130 Units/L [facility] ([place]) ALT 19 7 - 45 Units/L [facility] ([place]) AST 19 10 - 45 Units/L [facility] ([place]) Blood 05/15/2025 3:52 AM CDT 05/15/2025 4:28 AM CDT Beverly Goff DO LAB BLOOD ORDERABLES Fin al Result [facility] ([place]) 1 [facility] Department [place] [address] * POCT glucose (05/15/2025 2:07 AM CDT) Glucose, POC 195 70 - 199 mg/dL Blood 05/15/2025 2:07 AM CDT 05/15/2025 2:07 AM CDT Beverly Goff DO LAB POCT ORDERABLES - DE VICE Final Result Performing Organization Address City/[facility]/ZIP Co de Phone Number DARINEL RICHTER ([place]) 1 [place] [address] * (ABNORMAL) POCT glucose (05/14/2025 8:28 PM CDT) Glucose, POC 385(H) 70 - 199 mg/dL Blood 05/14/2025 8:28 PM CDT 05/14/2025 8:28 PM CDT Beverly Goff DO LAB POCT ORDERABLES - DE VICE Final Result Performing Organization Address City/[facility]/ZIP Co de Phone Number DARINEL RICHTER ([place]) 1 [place] [address] * POCT glucose (05/14/2025 4:42 PM CDT) Glucose, POC 136 70 - 199 mg/dL Blood 05/14/2025 4:42 PM CDT 05/14/2025 4:42 PM CDT Beverly Goff DO LAB POCT ORDERABLES - DE VICE Final Result Performing Organization Address City/[facility]/ZIP Co de Phone Number DARINEL RICHTER ([place]) 1 [facility] [email or web address] [address] * (ABNORMAL) POCT glucose (05/14/2025 11:39 AM CDT) Glucose, POC 208(H) 70 - 199 mg/dL Blood 05/14/2025 11:3 9 AM CDT 05/14/2025 11:39 AM CDT Beverly Goff DO LAB POCT ORDERABLES - DE VICE Final Result DARINEL RICHTER ([place]) 1 [facility] [email or web address] [address] * POCT glucose (05/14/2025 8:48 AM CDT) Glucose, POC 164 70 - 199 mg/dL Blood 05/14/2025 8:48 AM CDT 05/14/2025 8:48 AM CDT Beverly Goff DO LAB POCT ORDERABLES - DE VICE Final Result Performing Organization Address City/[facility]/ZIP Co de Phone Number DARINEL RICHTER ([place]) 1 [facility] [email or web address] [address] * (ABNORMAL) eGFR (05/14/2025 4:29 AM CDT) [facility] eGFR 51(L) >=60 mL/min/1. 73 m2 Comment: Interpretive Data [...] interpretive data was last reviewed 2021. Blood 05/14/2025 4:29 AM CDT 05/14/2025 4:50 AM CDT us Naif Sosa MD LAB BLOOD ORDERABLES Final Resu lt DARINEL RICHTER ([place]) 1 [facility] Department [email or web address] [address] * (ABNORMAL) CBC with auto differential (05/14/2025 4:29 AM CDT) [facility] WBC 11.90(H) 3.80 - 9.90 K/cumm Hgb 10.7(L) 11.9 - 15.5 g/dL [facility] ([place]) Hct 31.8(L) 35.6 - 45.5 % [facility] ([place]) Plt 298 150 - 400 K/cumm [facility] ([place]) MPV 9.8 9.1 - 12.3 fL [facility] ([place]) RBC 3.75(L) 3.90 - 5.20 M/cumm [facility] ([place]) MCV 84.8 81.3 - 96.4 fL [facility] ([place]) MCH 28.5 27.1 - 33.3 pg [facility] ([place]) MCHC 33.6 32.3 - 35.7 g/dL [facility] ([place]) RDW CV 13.3 11.1 - 14.9 % [facility] ([place]) RDW SD 40.7 35.7 - 48.1 fL [facility] ([place]) NRBC abs 0.00 0.00 - 0.01 K/cumm [facility] ([place]) Blood 05/14/2025 4:29 AM CDT 05/14/2025 4:50 AM CDT us Naif Sosa MD LAB BLOOD ORDERABLES Final Resu lt [facility] ([place]) 1 [facility] Department [place] [address] * (ABNORMAL) Manual Differential (05/14/2025 4:29 AM CDT) Pathologist [facility] Differential Manual Cells Counted 100 [facility] ([place]) Neutrophil abs 5.71 1.50 - 6.50 K/cumm [facility] ([place]) Lymphocyte abs 5.00(H) 0.80 - 3.30 K/cumm [facility] ([place]) Monocyte abs 0.48 0.20 - 0.80 K/cumm [facility] ([place]) Eosinophil abs 0.60(H) 0.00 - 0.50 K/cumm [facility] ([place]) Basophil abs 0.12(H) 0.00 - 0.10 K/cumm [facility] ([place]) Neutrophil pct 48.0 % [facility] ([place]) Comment: Interpretive Data Percent cell count reference ranges are not reported, since discordance with absolute values may lead to misinterpretation of CBC data. Current Interpretive Data was last revised on 2018. Lymphocyte pct 40.0 % [facility] ([place]) Comment: Interpretive Data Percent cell count reference ranges are not reported, since discordance with absolute values may lead to misinterpretation of CBC data. Current Interpretive Data was last revised on 2018. Monocyte pct 4.0 % [facility] ([place]) Comment: Interpretive Data Percent cell count reference ranges are not reported, since discordance with absolute values may lead to misinterpretation of CBC data. Current Interpretive Data was last revised on 2018. Eosinophil pct 5.0 % [facility] ([place]) Comment: Interpretive Data Percent cell count reference ranges are not reported, since discordance with absolute values may lead to misinterpretation of CBC data. Current Interpretive Data was last revised on 2018. Basophil pct 1.0 % [facility] ([place]) Comment: Interpretive Data Percent cell count reference ranges are not reported, since discordance with absolute values may lead to misinterpretation of CBC data. Current Interpretive Data was last revised on 2018. Variant lymph pct 2.0(H) 0.0 - 0.0 % [facility] ([place]) RBC morphology Consistent with RBC Indicies DARINEL RICHTER ([place]) Platelet estimate Automated Count Confirmed [facility] ([place]) Blood 05/14/2025 4:29 AM CDT 05/14/2025 4:50 AM CDT us Naif Sosa MD LAB BLOOD ORDERABLES Final Resu lt DARINEL RICHTER ([place]) 1 [facility] Department [place] [address] * (ABNORMAL) Comprehensive metabolic panel (05/14/2025 4:29 AM CDT) Sodium 141 135 - 145 mmol/L Potassium, pl 3.3 3.3 - 4.9 mmol/L [facility] ([place]) Chloride 103 97 - 110 mmol/L [facility] ([place]) CO2 18(L) 22 - 32 mmol/L [facility] ([place]) Anion gap 20(H) 2 - 15 mmol/L [facility] ([place]) BUN 16 6 - 25 mg/dL [facility] ([place]) Creatinine 1.17(H) 0.60 - 1.10 mg/dL [facility] ([place]) Glucose 135 70 - 199 mg/dL [facility] ([place]) [...] interpretive data was last revised 2022. Calcium 9.9 8.5 - 10.3 mg/dL [facility] ([place]) Bilirubin, total 0.4 0.1 - 1.2 mg/dL [facility] ([place]) Protein, pl 7.2 6.5 - 8.5 g/dL [facility] ([place]) Albumin 4.1 3.5 - 5.0 g/dL [facility] ([place]) Alk phos 133(H) 40 - 130 Units/L [facility] ([place]) ALT 13 7 - 45 Units/L [facility] ([place]) AST 14 10 - 45 Units/L [facility] ([place]) Blood 05/14/2025 4:29 AM CDT 05/14/2025 4:50 AM CDT us Naif Sosa MD LAB BLOOD ORDERABLES Final [facility] ([place]) 1 [facility] [place] [address] * (ABNORMAL) Troponin T high-sensitivity 6-hour (05/13/2025 9:56 PM CDT) Trop T hs 22(H) <=14 ng/L Comment: Interpretive Data For further hscTnT resources including the diagnostic algorithm and an aid in interpretation, copy and paste this link: https://nrl.testcatalog.org/show/hsTrop Current Interpretive Data last revised 2020. Trop T hs delta -3 ng/L [facility] ([place]) Trop T hs interp Insignificant [facility] ([place]) Blood 05/13/2025 9:56 PM CDT 05/13/2025 10:02 PM CDT Doni Briceño MD LAB BLOOD ORDERABLES Final Result D[facility]INEL [facility] ([place]) 1 [facility] [place] [address] * CT CRITICAL CARE ILL/INJURED PATIENT INIT 30-74 MIN (05/13/2025 8:59 PM CDT) Narrative Doni Briceño MD - 05/13/2025 8:59 PM CDT Doni Briceño MD 05/13/2025 9:00 PM Critical Care Performed by: Doni Briceño MD Authorized by: Doni Briceño MD Critical care provider statement: As reflected in the history, physical exam, orders, notes, and/or MDM, I was personally present while the patient was critically ill and provided critical care services for 46 minutes, excluding time involved in separately billable procedures. Critical care was necessary to treat or prevent imminent or life-threatening deterioration of the following condition(s): unstable vital signs and end of life care/management/discussion acute cerebrovascular accident (CVA) and severe neurologic condition tachy/toshia arrhythmic event and severe cardiac condition bacteremia acute psychotic episode Critical care was time spent by me providing the following: continuous telemetry, continuous pulse oximetry, serial bedside patient exams, serial laboratory checks and resuscitation with fluids frequent neurologic exams and decision regarding acute lytic therapy initiation of rate controlling agent I provided emergent necessary critical care medicine [...] medical record. I admitted this patient to a continuous cardiac monitored bed. us Doni Briceño MD IN CLINIC/BEDSIDE ORDERABLE S Final Result * CTA Stroke Head Neck W WO Contrast (05/13/2025 8:10 PM CDT) Anatomical Region Laterality Modality Head and Neck N/A Computed Tomogra phy 05/13/2025 8:13 PM CDT Narrative 05/13/2025 8:59 PM CDT EXAM DESCRIPTION: CTA STROKE HEAD NECK W WO CONTRAST REASON FOR STUDY: Neuro deficit, acute, stroke suspected, ms change Patient presents to the ED via EMS with c/o altered mental status, h/o subdural hematoma, seizure disorder, and anxiety Pt's LKW yesterday 2029. Re scanned the non con head now that she is more able to hold still and follow instructions. Patients only complaint is headache at this time. TECHNIQUE: Axial images were first obtained through the brain without contrast. Axial dynamic scanning technique with dynamic contrast enhancement through the intracranial and extracranial carotid and vertebral arteries. Multiplanar reconstruction. All stenosis measurements are based on NASCET criteria. 3D MIP images rendered on scanning unit and reviewed at time of interpretation. Automated exposure control was used as a dose optimization technique for this examination. CONTRAST TYPE/DOSE: 75mL of IOVERSOL 350 MG IODINE/ML INTRAVENOUS SYRINGE injected COMPARISON: 05/13/2025, 05/09/2025 FINDINGS: BRAIN Head/extra-axial spaces: Redemonstration of mildly hyperattenuating right subdural collection/hematoma overlying the right frontoparietal temporal lobes which has not substantially changed compared to 05/09/2025 measuring up to approximately 5 mm in largest thickness reflective of an evolving nonacute subdural hematoma. No acute intra-axial fluid collections. No definitive CT evidence of recent territorial infarct. Nonspecific periventricular subcortical white matter hypoattenuation which can be seen as sequela of chronic small vessel ischemic disease. Unchanged old lacunar infarct of the right basal ganglia. No acute intraventricular hemorrhage. Basal cisterns are patent. No midline shift. No definitive evidence of cerebral edema. ORBITS: No significant abnormality. CALVARIUM: No acute fracture. Right frontal ron hole is redemonstrated and is unchanged. SINUSES/MASTOIDS: Mild mucosal thickening of the ethmoid air cells. Otherwise, no fluid or mucosal thickening. OTHER: No other significant abnormality. INTRACRANIAL VESSELS [place]: There is severe stenosis of the M1 segment of bilateral middle cerebral arteries proximally (up to approximately 80% stenosis) with normal opacification of the MCA branches more distally. There is severe stenosis of the distal A1 segment of the left anterior cerebral artery with poor opacification/occlusion of the distal most left A1 segment with opacification of the left A2 segment through anterior communicating artery. The A1 segment of right anterior cerebral artery is normal. There is severe stenosis of the mid segment of P1 segment of right posterior cerebral artery. The proximal left posterior cerebral artery is hypoplastic with poor opacification and there is supply to the distal left P1 segment by the posterior communicating artery with patent branches more distally Basilar artery patent with no hemodynamically significant arterial stenosis, dissection, or aneurysm: BRAIN: No gross enhancing lesions as visualized. The cerebral dural venous sinuses are opacified and patent. CAROTID CTA RIGHT CAROTIDS: Atherosclerotic calcifications at the distal most common carotid artery and bifurcation as well as proximal most internal carotid artery resulting in less than 50% short-segment stenosis. Dense atherosclerotic calcifications of the intracranial segments of internal carotid artery with noncalcified plaques resulting in varying degrees of up to greater than 80% stenosis. LEFT CAROTIDS: Atherosclerotic calcifications at the distal most common carotid artery and bifurcation as well as proximal most internal carotid artery resulting in less than 50% short-segment stenosis. Dense atherosclerotic calcifications of the intracranial segments of internal carotid artery with noncalcified plaques resulting in varying degrees of up to greater than 80% stenosis. LEFT VERTEBRAL: Severe stenosis at the V4 segments of up to 80%. No dissection. RIGHT VERTEBRAL: Severe stenosis at the V4 segments of up to 80%. No dissection. AORTIC ARCH: Normal three-vessel origin. Bilateral subclavian arteries are patent. No dissection. NECK SOFT TISSUE: No mass, adenopathy. Bilateral thyroid nodules are present some of which calcifications with the largest measuring up to 19 mm in the right thyroid lobe. INCLUDED LUNGS: Mild scattered atelectasis and mild scattered pulmonary emphysema. OTHER: No acute fractures or aggressive bone lesions. IMPRESSION: 1. Redemonstration of mildly hyperattenuating right subdural collection/hematoma overlying the right frontoparietal temporal lobes which has not substantially changed compared to 05/09/2025 measuring up to approximately 5 mm in largest thickness reflective of an evolving nonacute subdural hematoma. No midline shift. 2. 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 3. Severe stenosis of the distal A1 segment of the left anterior cerebral artery with poor opacification/occlusion of the distal most left A1 segment with opacification of the left A2 segment through anterior communicating artery. 4. Severe stenosis of the mid segment of P1 segment of right posterior cerebral artery. The proximal left posterior cerebral artery is hypoplastic with poor opacification and there is supply to the distal left P1 segment by the posterior communicating artery with patent branches more distally. 5. Dense atherosclerotic calcifications of the intracranial segments of bilateral internal carotid arteries with noncalcified plaques resulting in varying degrees of up to greater than 80% stenosis. Findings were telephoned by Dr. Gomez to Dr. Briceño at 8:47 p.m. GLOBAL LOGISTICS ANALYST on 05/13/2025. THIS IS AN ELECTRONICALLY VERIFIED FINAL REPORT 05/13/2025 8:59 PM - Electronically signed by Cristian Gomez M.D. AT: AT Report ID: [id number] Reading Location: [id number] Procedure Note Cristian Gomez MD - 05/13/2025 EXAM DESCRIPTION: CTA STROKE HEAD NECK W WO CONTRAST REASON FOR STUDY: Neuro deficit, acute, stroke suspected, ms change Patient presents to the ED via EMS with c/o altered mental status, h/o subdural hematoma, seizure disorder, and anxiety Pt's LKW yesterday 2029.Re scanned the non con head now that she is more able to hold still andfollow instructions. Patients only complaint is headache at this time. TECHNIQUE: Axial images were first obtained through the brain without contrast. Axial dynamic scanning technique with dynamic contrast enhancement throughthe intracranial and extracranial carotid and vertebral arteries. Multiplanar reconstruction. All stenosis measurements are based on NASCET criteria. 3D MIP images rendered on scanning unit and reviewed at time of interpretation. Automated exposure control was used as a dose optimization technique forthis examination. CONTRAST TYPE/DOSE: 75mL of IOVERSOL 350 MG IODINE/ML INTRAVENOUSSYRINGE injected COMPARISON: 05/13/2025, 05/09/2025 FINDINGS: BRAIN Head/extra-axial spaces: Redemonstration of mildly hyperattenuating right subdural collection/hematoma overlying the right frontoparietal temporallobes which has not substantially changed compared to 05/09/2025 measuring up to approximately 5 mm in largest thickness reflective of an evolving nonacute subdural hematoma. No acute intra-axial fluid collections. Nodefinitive CT evidence of recent territorial infarct. Nonspecific periventricular subcortical white matter hypoattenuation which can be seen as sequela of chronic small vessel ischemic disease. Unchanged old lacunar infarct ofthe right basal ganglia. No acute intraventricular hemorrhage. Basalcisterns are patent. No midline shift. No definitive evidence of cerebral edema. ORBITS: No significant abnormality. CALVARIUM: No acute fracture. Right frontal ron hole isredemonstrated and is unchanged. SINUSES/MASTOIDS: Mild mucosal thickening of the ethmoid air cells. Otherwise, no fluid or mucosal thickening. OTHER: No other significant abnormality. INTRACRANIAL VESSELS [place]: There is severe stenosis of the M1 segment ofbilateral middle cerebral arteries proximally (up to approximately 80% stenosis)with normal opacification of the MCA branches more distally. There is severe stenosis of the distal A1 segment of the left anterior cerebral arterywith poor opacification/occlusion of the distal most left A1 segment with opacification of the left A2 segment through anterior communicatingartery. The A1 segment of right anterior cerebral artery is normal. There issevere stenosis of the mid segment of P1 segment of right posterior cerebralartery. The proximal left posterior cerebral artery is hypoplastic with poor opacification and there is supply to the distal left P1 segment by the posterior communicating artery with patent branches more distally Basilar artery patent with no hemodynamically significant arterialstenosis, dissection, or aneurysm: BRAIN: No gross enhancing lesions as visualized. The cerebral duralvenous sinuses are opacified and patent. CAROTID CTA RIGHT CAROTIDS: Atherosclerotic calcifications at the distal most common carotid artery and bifurcation as well as proximal most internal carotid artery resulting in less than 50% short-segment stenosis. Dense atherosclerotic calcifications of the intracranial segments of internal carotid artery with noncalcified plaques resulting in varying degrees ofup to greater than 80% stenosis. LEFT CAROTIDS: Atherosclerotic calcifications at the distal most common carotid artery and bifurcation as well as proximal most internal carotid artery resulting in less than 50% short-segment stenosis. Dense atherosclerotic calcifications of the intracranial segments of internal carotid artery with noncalcified plaques resulting in varying degrees ofup to greater than 80% stenosis. LEFT VERTEBRAL: Severe stenosis at the V4 segments of up to 80%. No dissection. RIGHT VERTEBRAL: Severe stenosis at the V4 segments of up to 80%. No dissection. AORTIC ARCH: Normal three-vessel origin. Bilateral subclavian arteriesare patent. No dissection. NECK SOFT TISSUE: No mass, adenopathy. Bilateral thyroid nodules are present some of which calcifications with the largest measuring up to 19mm in the right thyroid lobe. INCLUDED LUNGS: Mild scattered atelectasis and mild scattered pulmonary emphysema. OTHER: No acute fractures or aggressive bone lesions. IMPRESSION: 1. Redemonstration of mildly hyperattenuating right subdural collection/hematoma overlying the right frontoparietal temporal lobeswhich has not substantially changed compared to 05/09/2025 measuring up to approximately 5 mm in largest thickness reflective of an evolving nonacute subdural hematoma. No midline shift. 2. 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 3. Severe stenosis of the distal A1 segment of the left anterior cerebral artery with poor opacification/occlusion of the distal most left [id number] with opacification of the left A2 segment through anterior communicating artery. 4. Severe stenosis of the mid segment of P1 segment of right posterior cerebral artery. The proximal left posterior cerebral artery ishypoplastic with poor opacification and there is supply to the distal left P1 segmentby the posterior communicating artery with patent branches more distally. 5. Dense atherosclerotic calcifications of the intracranial segments of bilateral internal carotid arteries with noncalcified plaques resulting in varying degrees of up to greater than 80% stenosis. Findings were telephoned by Dr. Gomez to Dr. Briceño at 8:47 p.m. CSTon 05/13/2025. THIS IS AN ELECTRONICALLY VERIFIED FINAL REPORT 05/13/2025 8:59 PM - Electronically signed by Cristian Gomez M.D. AT: AT Report ID: [id number] Reading Location: [place] [address] Doni Briceño MD IMG CT PROCEDURES Final Res ult * (ABNORMAL) Troponin T high-sensitivity 4-hour (05/13/2025 7:50 PM CDT) Trop T hs 20(H) <=14 ng/L Comment: Interpretive Data For further hscTnT resources including the diagnostic algorithm and an aid in interpretation, copy and paste this link: https://nrl.testcatalog.org/show/hsTrop Current Interpretive Data last revised 2020. Trop T hs delta -5 ng/L [facility] ([place]) Trop T hs interp Equivocal [facility] ([place]) Blood 05/13/2025 7:50 PM CDT 05/13/2025 7:55 PM CDT Doni Briceño MD LAB BLOOD ORDERABLES Final Result [facility] ([place]) 1 [facility] Department [place] [address] * ECG 12 lead (05/13/2025 6:12 PM CDT) 05/13/2025 6:12 PM CDT Narrative [facility] - 05/14/2025 7:51 AM CDT Vent Rate: 100 bpm RR Interval: [address] Interval: 0 msec QRS Duration: 82 msec QT Interval: 348 msec QTC Interval: 405 msec P-R-T [place]: [id number] - 65 - 40 degrees IMPRESSION: Baseline artifact, probable sinus rhythm NONSPECIFIC ST \T\ T-WAVE ABNORMALITY ABNORMAL RHYTHM ECG Recommend repeat EKG with stable baseline for accurate rhythm assessment Electronically Signed By: Harjeet Mendez MD Doni Briceño MD ECG ORDERABLES Final Resul t [facility] * (ABNORMAL) Troponin T high-sensitivity 2-hour (05/13/2025 5:56 PM CDT) Trop T hs 21(H) <=14 ng/L Comment: Interpretive Data For further hscTnT resources including the diagnostic algorithm and an aid in interpretation, copy and paste this link: https://nrl.testcatalog.org/show/hsTrop Current Interpretive Data last revised 2020. Trop T hs delta -4 ng/L [facility] ([place]) Trop T hs interp Insignificant [facility] ([place]) Blood 05/13/2025 5:56 PM CDT 05/13/2025 6:00 PM CDT Doni Briceño MD LAB BLOOD ORDERABLES Final Result Performing Organization Address City/[facility]/ZIP Co de Phone Number [facility] ([place]) 1 [facility] Department [place] [address] * (ABNORMAL) Urinalysis reflex to microscopic and culture Urine (05/13/2025 4:55 PM CDT) Color, ur Yellow Yellow Clarity, ur Clear Clear [facility] ([place]) Specific gravity, ur 1.011 1.003 - 1.030 [facility] ([place]) pH, urine 7.5 [facility] ([place]) Comment: Interpretive Data U rine pH is affected by diet, medications, systemic acid-base disturbances, and renal tubular function. pH may affect urinary stone formation. For example, urine pH below 6.0 may help reduce the tendency for calcium phosphate stones and pH greater than 6.0 may reduce the tendency for uric acid stone formation. Source: [employer] Current Interpretive Data was last revised on 2017 Protein, ur ql Negative Negative [facility] ([place]) Glucose, ur ql Negative Negative [facility] ([place]) Ketones, ur Trace Negative [facility] ([place]) Bilirubin, ur Negative Negative [facility] ([place]) Blood, ur Negative Negative [facility] ([place]) Urobilinogen, ur <2.0 <2.0 mg/dL [facility] ([place]) Nitrite, ur Negative Negative [facility] ([place]) Leukocyte esterase, ur 4+(A) Negative [facility] ([place]) UA reflex comment Reflex to microscopic UA will be performed. [facility] ([place]) Urine 05/13/2025 4:55 PM CDT 05/13/2025 5:09 PM CDT us Doni Briceño MD LAB MICROBIOLOGY - GENERAL ORDERABLES Final Result Performing Organization Address City/[facility]/ZIP Co de Phone Number [facility] ([place]) 1 [facility] [place] [address] * (ABNORMAL) Urinalysis, microscopic only (05/13/2025 4:55 PM CDT) WBC, ur 21-50(A) 0 - 5 /HPF RBC, ur 21-50(A) 0 - 2 /HPF [facility] ([place]) Epithelial cells, squamous, ur 1-5 0 - 5 /HPF [facility] ([place]) Epithelial cells, renal, ur 1-5(A) 0 - 0 /HPF [facility] ([place]) Bacteria, ur Trace(A) [facility] ([place]) Yeast, ur 1+(A) [facility] ([place]) Culture Reflex Comment Reflex to urine culture will be performed. [facility] ([place]) Urine 05/13/2025 4:55 PM CDT 05/13/2025 5:09 PM CDT us Doni Briceño MD LAB URINE ORDERABLES Final Result Performing Organization Address City/[facility]/ZIP Co de Phone Number DARINEL R[facility]TER ([place]) 1 [facility] [place] [email or web address] [place] [address] * Urine culture Urine (05/13/2025 4:55 PM CDT) Report Final Report: No growth Comment:Testing performed by : [facility], [address] [facility], [place]., [address] Urine 05/13/2025 4:5 5 PM CDT 05/13/2025 8:32 PM CDT Narrative D[facility]INEL RICHTER ([place]) - 05/15/2025 8:17 AM CDT Urine culture reflexed based upon urinalysis results. Testing performed by [facility] ([phone]) Doni Briceño MD LAB MICROBIOLOGY - GENERAL ORDERABLES Final Result Performing Organization Address [facility]/ZIP Co de Phone Number DARINEL [facility] ([place]) 1 [facility] [place] [address] * (ABNORMAL) Blood gas, venous (05/13/2025 4:02 PM CDT) pH, Venous 7.62(C) 7.32 - 7.43 Comment:Critical result call ed to and read back by Terry Nguyen (ER charge) on 05/13/2025 16:26:20 CDT to [id number]. PCO2, Venous See comment 40 - 50 mmHg [facility] ([place]) Comment:pCO2 below reportabl e range, BE unable to calculate due to pCO2 value. PO2, Venous 28 mmHg DARINEL Sorensen ([place]) HCO3 Venous, Calculated See comment 20 - 30 mmol/L [facility] ([place]) Comment:Unable to calculate. BE, venous See comment mmol/L [facility]EL [facility] ([place]) Comment: pCO2 below reportable range, BE unable to calculate due to pCO2 value. Interpretive Data No Reference Range Established Current Interpretive Data was last revised on 2018. Blood 05/13/2025 4:02 PM CDT 05/13/2025 4:06 PM CDT Doni Briceño MD LAB BLOOD ORDERABLES Final Result Performing Organization Address City/[facility]/ZIP Co de Phone Number DARINEL RICHTER ([place]) 1 [facility] [place] [address] * (ABNORMAL) Troponin T high-sensitivity series (baseline, 2hr, 4hr, 6hr) (05/13/2025 4:01 PM CDT) Trop T hs 25(H) <=14 ng/L Comment: Interpretive Data For further hscTnT resources including the diagnostic algorithm and an aid in interpretation, copy and paste this link: https://nrl.testcatalog.org/show/hsTrop Current Interpretive Data last revised 2020. Blood 05/13/2025 4:01 PM CDT 05/13/2025 4:54 PM CDT Doni Briceño MD LAB BLOOD ORDERABLES Final Result Performing Organization Address City/[facility]/ZIP Co de Phone Number DARINEL RICHTER ([place]) 1 [facility] [place] [address] * aPTT (05/13/2025 4:01 PM CDT) aPTT 33 28 - 38 sec DARINEL RICHTER ([place]) Comment: Interpretive Data Heparin therapeutic range: 66.0 - 100.0 seconds. Range based on correlation with therapeutic heparin activity range of 0.3 - 0.7 Units/mL. Current interpretive data was last revised on 2023. Blood Venous blood specimen / Unknown 05/13/2025 4:01 PM CDT 05/13/2025 4:06 PM CDT Narrative D[facility]INEL RICHTER ([place]) - 05/13/2025 4:27 PM CDT Potential stroke patient. us Doni Briceño MD LAB BLOOD ORDERABLES Final Result DARINEL RICHTER ([place]) 1 [facility] [place] [address] * Protime-INR (05/13/2025 4:01 PM CDT) PT 11.6 9.7 - 13.0 sec DARINEL RICHTER ([place]) INR 1.07 0.90 - 1.20 DARINEL RICHTER ([place]) Comment: Interpretive data Oral anticoagulant therapeutic ranges: Venous thromboembolism prophylaxis or treatment: 2.0-3.0 CARDIOLOGY Standard range: 2.0-3.0 High-intensity range: 2.5-3.5 Refer to indication-specific guidelines for appropriate target ranges for prosthetic heart valve replacement. Current interpretive data was last revised on 2019. Blood 05/13/2025 4:01 PM CDT 05/13/2025 4:06 PM CDT Doni Briceño MD LAB BLOOD ORDERABLES Final Result Performing Organization Address [facility] Co de Phone Number DARINEL NEELAM ([place]) 1 [facility] Department of Laboratories [place] [phone] * ECG 12 lead (05/13/2025 3:54 PM CDT) 05/13/2025 3:54 PM CDT Narrative [facility] 05/13/2025 4:01 PM CDT Vent Rate: 97 bpm RR Interval: [address] Interval: 144 msec QRS Duration: 90 msec QT Interval: 363 msec QTC Interval: 417 msec P-R-T [place]: 152 - 140 - 171 degrees IMPRESSION: SINUS RHYTHM WITH OCCASIONAL VENTRICULAR PREMATURE COMPLEXES ARM LEADS REVERSED [INVERTED P AND QRS IN I] Rare to prior EKG, limb lead reversal now seen and PVC is new. Electronically Signed By: Dr Javier Hartman Doni Briceño MD ECG ORDERABLES Final Resul t Performing Organization Address [facility] Co de Phone Number [facility] * CT Stroke Head WO Contrast (05/13/2025 3:43 PM CDT) Anatomical Region Laterality Modality Head N/A Computed Tomogra phy 05/13/2025 3:45 PM CDT Narrative 05/13/2025 3:56 PM CDT EXAM DESCRIPTION: CT STROKE HEAD WO CONTRAST REASON FOR STUDY: Stroke, follow up, Stroke Unable to speak since this morning. Last known well is 2029 last night. Best images obtainable, pt unable to hold still for exam. TECHNIQUE: Axial images acquired through the brain without intravenous contrast. Images stored on PACS. Automated mA/kV exposure control was utilized and patient examination was performed in strict accordance with principles of ALARA. COMPARISON: CT head 05/09/2025 FINDINGS: BRAIN: Motion artifact compromises evaluation. Again seen is subdural collection over the right cerebral convexity. This appears grossly stable compared with 05/09/2025 given degree of motion artifact. No definite large cortical infarct is seen although poorly evaluated due to motion. There is mild cerebral parenchymal volume loss. Old right basal ganglial lacunar infarcts. EXTRA-AXIAL SPACES: Grossly stable right subdural collection. CALVARIUM: Stable postsurgical changes. No fracture. SINUSES/MASTOIDS: No air-fluid levels or mucosal thickening. ORBITS: No significant abnormality. OTHER: No other acute findings. These significant findings were reported by telephone to Dr. Briceño on 05/13/2025 at 3:56 p.m. GLOBAL LOGISTICS ANALYST . IMPRESSION: Significantly motion compromised examination. Grossly stable right subdural collection. While no definite acute intracranial abnormality is seen, evaluation is significantly compromised by motion artifact. THIS IS AN ELECTRONICALLY VERIFIED FINAL REPORT 05/13/2025 3:56 PM - Electronically signed by Jamari Maza M.D. JR: Report ID: [id number] Reading Location: [place] [address] Procedure Note Jamari Maza MD - 05/13/2025 EXAM DESCRIPTION: CT STROKE HEAD WO CONTRAST REASON FOR STUDY: Stroke, follow up, Stroke Unable to speak since this morning. Last known well is 2030 last night.Best images obtainable, pt unable to hold still for exam. TECHNIQUE: Axial images acquired through the brain without intravenous contrast. Images stored on PACS. Automated mA/kV exposure control was utilized and patient examination was performed in strict accordance with principles of ALARA. COMPARISON: CT head 05/09/2025 FINDINGS: BRAIN: Motion artifact compromises evaluation. Again seen is subdural collection over the right cerebral convexity. This appears grossly stable compared with 05/09/2025 given degree of motion artifact. No definitelarge cortical infarct is seen although poorly evaluated due to motion. Thereis mild cerebral parenchymal volume loss. Old right basal ganglial lacunar infarcts. EXTRA-AXIAL SPACES: Grossly stable right subdural collection. CALVARIUM: Stable postsurgical changes. No fracture. SINUSES/MASTOIDS: No air-fluid levels or mucosal thickening. ORBITS: No significant abnormality. OTHER: No other acute findings. These significant findings were reported by telephone to Dr. Pena 05/13/2025 at 3:56 p.m. GLOBAL LOGISTICS ANALYST . IMPRESSION: Significantly motion compromised examination. Grossly stable rightsubdural collection. While no definite acute intracranial abnormality is seen, evaluation is significantly compromised by motion artifact. THIS IS AN ELECTRONICALLY VERIFIED FINAL REPORT 05/13/2025 3:56 PM - Electronically signed by Jamari Maza M.D. JR: Report ID: [id number] Reading Location: [place] [address] Doni Briceño MD IMG CT PROCEDURES Final Res ult * Troponin T high-sensitivity series (baseline, 2hr, 4hr, 6hr) (05/13/2025 3:35 PM CDT) Pathologist [facility] Trop T hs See comment <=14 ng/L Comment: Too Heamolysed for Trop. Interpretive Data For further hscTnT resources including the diagnostic algorithm and an aid in interpretation, copy and paste this link: https://nrl.testcatalog.org/show/hsTrop Current Interpretive Data last revised 2020. Blood 05/13/2025 3:35 PM CDT 05/13/2025 3:38 PM CDT Doni Briceño MD LAB BLOOD ORDERABLES Final Result [facility] ([place]) 1 [facility] [place] [address] * (ABNORMAL) eGFR (05/13/2025 3:35 PM CDT) eGFR 55(L) >=60 mL/min/1. 73 m2 Comment: Interpretive Data [...] interpretive data was last reviewed 2021. Blood 05/13/2025 3:35 PM CDT 05/13/2025 3:38 PM CDT us Doni Briceño MD LAB BLOOD ORDERABLES Final Result [facility] ([place]) 1 [facility] Department [place] [address] * (ABNORMAL) CBC with auto differential (05/13/2025 3:35 PM CDT) WBC 12.42(H) 3.80 - 9.90 K/cumm Hgb 12.0 11.9 - 15.5 g/dL [facility] ([place]) Hct 37.1 35.6 - 45.5 % [facility] ([place]) Plt 262 150 - 400 K/cumm [facility] ([place]) MPV 10.3 9.1 - 12.3 fL [facility] ([place]) RBC 4.19 3.90 - 5.20 M/cumm [facility] ([place]) MCV 88.5 81.3 - 96.4 fL [facility] ([place]) MCH 28.6 27.1 - 33.3 pg [facility] ([place]) MCHC 32.3 32.3 - 35.7 g/dL [facility] ([place]) RDW CV 13.3 11.1 - 14.9 % [facility] ([place]) RDW SD 42.5 35.7 - 48.1 fL [facility] ([place]) NRBC abs 0.00 0.00 - 0.01 K/cumm [facility] ([place]) Blood Venous blood specimen / Unknown 05/13/2025 3:35 PM CDT 05/13/2025 3:38 PM CDT Narrative [facility] ([place]) - 05/13/2025 4:07 PM CDT Potential Stroke Patient us Doni Briceño MD LAB BLOOD ORDERABLES Edited Result - Final [facility] ([place]) 1 [facility] Department [place] [address] * (ABNORMAL) Manual Differential (05/13/2025 3:35 PM CDT) Differential Manual Cells Counted 100 [facility] ([place]) Neutrophil abs 5.71 1.50 - 6.50 K/cumm [facility] ([place]) Lymphocyte abs 6.21(H) 0.80 - 3.30 K/cumm [facility] ([place]) Monocyte abs 0.37 0.20 - 0.80 K/cumm [facility] ([place]) Basophil abs 0.12(H) 0.00 - 0.10 K/cumm [facility] ([place]) Neutrophil pct 45.0 % [facility] ([place]) Comment: Interpretive Data Percent cell count reference ranges are not reported, since discordance with absolute values may lead to misinterpretation of CBC data. Current Interpretive Data was last revised on 2018. Lymphocyte pct 50.0 % [facility] ([place]) Comment: Interpretive Data Percent cell count reference ranges are not reported, since discordance with absolute values may lead to misinterpretation of CBC data. Current Interpretive Data was last revised on 2018. Monocyte pct 3.0 % [facility] ([place]) Comment: Interpretive Data Percent cell count reference ranges are not reported, since discordance with absolute values may lead to misinterpretation of CBC data. Current Interpretive Data was last revised on 2018. Basophil pct 1.0 % [facility] ([place]) Comment: Interpretive Data Percent cell count reference ranges are not reported, since discordance with absolute values may lead to misinterpretation of CBC data. Current Interpretive Data was last revised on 2018. Band Neutrophil pct 1.0 0.0 - 5.0 % [facility] ([place]) RBC morphology Consistent with RBC Indicies [facility] ([place]) Platelet estimate Automated Count Confirmed [facility] ([place]) Blood 05/13/2025 3:35 PM CDT 05/13/2025 3:38 PM CDT Doni Briceño MD LAB BLOOD ORDERABLES Final Result [facility] ([place]) 1 [facility] Department [place] [address] * (ABNORMAL) Comprehensive metabolic panel (05/13/2025 3:35 PM CDT) Sodium 138 135 - 145 mmol/L Potassium, pl 4.5 3.3 - 4.9 mmol/L [facility] ([place]) Comment:Moderately Hemolyzed Specimen. Results may be affected. Chloride 103 97 - 110 mmol/L [facility] CO2 14(L) 22 - 32 mmol/L [facility] Anion gap 21(H) 2 - 15 mmol/L [facility] ([place]) BUN 18 6 - 25 mg/dL [facility] Creatinine 1.09 0.60 - 1.10 mg/dL [facility] ([place]) Glucose 107 70 - 199 mg/dL [facility] Comment: Interpretive Data Fasting glucose [...] interpretive data was last revised 2022. Calcium 10.5(H) 8.5 - 10.3 mg/dL [facility] ([place]) Bilirubin, total 0.5 0.1 - 1.2 mg/dL [facility] ([place]) Protein, pl 7.4 6.5 - 8.5 g/dL [facility] ([place]) Albumin 4.1 3.5 - 5.0 g/dL [facility] ([place]) Alk phos 148(H) 40 - 130 Units/L [facility] ([place]) ALT 18 7 - 45 Units/L [facility] ([place]) Comment: Hemolysis present. Results may be affected. Moderately Hemolyzed Specimen AST 33 10 - 45 Units/L [facility] ([place]) Comment: Hemolysis present. Results may be affected. Moderately Hemolyzed Specimen Blood Venous blood specimen / Unknown 05/13/2025 3:35 PM CDT 05/13/2025 3:38 PM CDT Narrative [facility] ([place]) - 05/13/2025 4:05 PM CDT Potential Stroke Patient us Doni Briceño MD LAB BLOOD ORDERABLES Final Result [facility] ([place]) 1 [facility] Department [place] [email or web address] [place] [address] * POCT glucose (05/13/2025 3:31 PM CDT) Glucose, POC 100 70 - 199 mg/dL Blood 05/13/2025 3:31 PM CDT 05/13/2025 3:31 PM CDT us Notinfile Unknown LAB POCT ORDERABLES - DEVICE F inal Result [facility] ([place]) 1 [facility] Department [place] [address] * CT CRITICAL CARE ILL/INJURED PATIENT INIT 30-74 MIN (05/09/2025 6:33 PM CDT) Narrative Doni Briceño MD - 05/09/2025 6:33 PM CDT Doni Briceño MD 05/09/2025 6:34 PM Critical Care Performed by: Doni Briceño MD Authorized by: Doni Briceño MD Critical care provider statement: As reflected in the history, physical exam, orders, notes, and/or MDM, I was personally present while the patient was critically ill and provided critical care services for 31 minutes, excluding time involved in separately billable procedures. Critical care was necessary to treat or prevent imminent or life-threatening deterioration of the following condition(s): acute cerebrovascular accident (CVA) and severe neurologic condition traumatic brain injury Critical care was time spent by me providing the following: continuous telemetry, continuous pulse oximetry, interpretation of bedside monitors, imaging, and arterial/venous lab draws and serial bedside patient exams frequent neurologic exams, decision regarding acute lytic therapy and initiation of stroke management acute pain control I provided emergent necessary critical care medicine [...] time documenting in the medical record. us Doni Briceño MD IN CLINIC/BEDSIDE ORDERABLE S Final Result * XR Chest 1 Vw Portable (05/09/2025 6:14 PM CDT) Anatomical Region Laterality Modality Body, Chest N/A Computed Radiogr aphy 05/09/2025 6:16 PM CDT Narrative 05/09/2025 6:18 PM CDT EXAM DESCRIPTION: XR CHEST 1 VIEW REASON FOR STUDY: accidental fall Fall Today. Non-Smoker Diabetic Hypertension TECHNIQUE: Single radiographic view(s) of the chest. COMPARISON: Prior exam 04/12/2025 and 03/01/2025 FINDINGS: LUNGS: Pulmonary vasculature is normal. No infiltrate or effusion. HEART/MEDIASTINUM: Senescent change of the aorta. Otherwise, normal cardiomediastinal silhouette. LINES/TUBES: None. BONES: Old fracture with evidence of healing is seen of the lateral right clavicle as was seen on the older exams. Dextroconvex curvature cervicothoracic spine. This may be positional. IMPRESSION: 1. No acute findings or infiltrate. 2. Old healed fracture lateral right clavicle unchanged in alignment or positioning. THIS IS AN ELECTRONICALLY VERIFIED FINAL REPORT 05/09/2025 6:18 PM - Electronically signed by Jeff HARRELL Report ID: [id number] Reading Location: [id number] Procedure Note Jeff Wade MD - 05/09/2025 EXAM DESCRIPTION: XR CHEST 1 VIEW REASON FOR STUDY: accidental fall Fall Today. Non-Smoker Diabetic Hypertension TECHNIQUE: Single radiographic view(s) of the chest. COMPARISON: Prior exam 04/12/2025 and 03/01/2025 FINDINGS: LUNGS: Pulmonary vasculature is normal. No infiltrate or effusion. HEART/MEDIASTINUM: Senescent change of the aorta. Otherwise, normal cardiomediastinal silhouette. LINES/TUBES: None. BONES: Old fracture with evidence of healing is seen of the lateral right clavicle as was seen on the older exams. Dextroconvex curvature cervicothoracic spine. This may be positional. IMPRESSION: 1. No acute findings or infiltrate. 2. Old healed fracture lateral right clavicle unchanged in alignment or positioning. THIS IS AN ELECTRONICALLY VERIFIED FINAL REPORT 05/09/2025 6:18 PM - Electronically signed by Jeff HARRELL Report ID: [id number] Reading Location: [id number] us Doni Briceño MD IMG XR PROCEDURES Final Res ult * (ABNORMAL) Troponin T high-sensitivity 2-hour (05/09/2025 6:08 PM CDT) Trop T hs 19(H) <=14 ng/L Comment: Interpretive Data For further hscTnT resources including the diagnostic algorithm and an aid in interpretation, copy and paste this link: https://nrl.testcatalog.org/show/hsTrop Current Interpretive Data last revised 2020. Trop T hs delta -1 ng/L [facility] ([place]) Trop T hs interp Insignificant [facility] ([place]) Blood 05/09/2025 6:08 PM CDT 05/09/2025 6:09 PM CDT Doni Briceño MD LAB BLOOD ORDERABLES Final Result [facility] ([place]) 1 [facility] Department [place] [address] * XR Knee Right 3 Views (05/09/2025 4:57 PM CDT) Anatomical Region Laterality Modality Lower Extremities, Knee Right Computed Radiography 05/09/2025 5:02 PM CDT Narrative 05/09/2025 5:07 PM CDT EXAM DESCRIPTION: XR SHOULDER RIGHT 2 OR MORE VIEWS; XR KNEE RIGHT 3 VIEWS REASON FOR STUDY: accidental fall Pt to ED via EMS for c/o right shoulder and right knee pain after a fall today. Pt reports when she stood up she lost her balance and fell. Pt did hit her head, no LOC and no blood thinners. Hx of leukemia and previous brain bleed per pt. Pt A. Pt reports she feels like she is having a hard time saying what she wants to say. Pt attempted to say her weight and was unable to. Also attempted to explain story of last brain bleed and said I just can't say it. Pt reports she noticed the difficulty speaking when EMS was at her house. TECHNIQUE: 5 radiographic view(s) of the right shoulder . 3 radiographic views of the right knee COMPARISON: 04/02/2025 FINDINGS: Right shoulder: There is a mildly displaced distal end right clavicle fracture with slightly progressed immature callus formation. There is slight superior positioning of the distal end of the clavicle with respect to the acromion with slight widening of the coracoclavicular interval on some of projections which may reflect acromioclavicular joint separation injury. The glenohumeral joint space and alignment are within normal limits. No aggressive osseous lesions. Right knee: The alignment is normal. There is no acute fracture. Knee joint spaces are normal. No aggressive bone lesions. No knee effusion. Arterial calcifications are present. IMPRESSION: 1. No acute osseous abnormality in the right knee. 2. Redemonstration of mildly displaced distal end right clavicle fracture with slightly progressed immature callus formation. There is slight superior positioning of the distal end of the clavicle with respect to the acromion with slight widening of the coracoclavicular interval on some of projections which may reflect acromioclavicular joint separation injury. THIS IS AN ELECTRONICALLY VERIFIED FINAL REPORT 05/09/2025 5:07 PM - Electronically signed by Cristian Gomez M.D. AT: AT Report ID: [id number] Reading Location: [id number] Procedure Note Cristian Gomez MD - 05/09/2025 EXAM DESCRIPTION: XR SHOULDER RIGHT 2 OR MORE VIEWS; XR KNEE RIGHT 3 VIEWS REASON FOR STUDY: accidental fall Pt to ED via EMS for c/o right shoulder and right knee pain after a fall today. Pt reports when she stood up she lost her balance and fell. Ptdid hit her head, no LOC and no blood thinners. Hx of leukemia and previous brain bleed per pt. Pt A. Pt reports she feels like she is having a hard time saying what she wants to say. Pt attempted to say her weight andwas unable to. Also attempted to explain story of last brain bleed and Rose just can't say it. Pt reports she noticed the difficulty speaking whenEMS was at her house. TECHNIQUE: 5 radiographic view(s) of the right shoulder . 3 radiographic views of the right knee COMPARISON: 04/02/2025 FINDINGS: Right shoulder: There is a mildly displaced distal end right clavicle fracture withslightly progressed immature callus formation. There is slight superiorpositioning of the distal end of the clavicle with respect to the acromion with slight widening of the coracoclavicular interval on some of projections whichmay reflect acromioclavicular joint separation injury. The glenohumeraljoint space and alignment are within normal limits. No aggressive osseouslesions. Right knee: The alignment is normal. There is no acute fracture. Knee joint spacesare normal. No aggressive bone lesions. No knee effusion. Arterial calcifications are present. IMPRESSION: 1. No acute osseous abnormality in the right knee. 2. Redemonstration of mildly displaced distal end right clavicle fracture with slightly progressed immature callus formation. There is slightsuperior positioning of the distal end of the clavicle with respect to the acromion with slight widening of the coracoclavicular interval on some ofprojections which may reflect acromioclavicular joint separation injury. THIS IS AN ELECTRONICALLY VERIFIED FINAL REPORT 05/09/2025 5:07 PM - Electronically signed by Cristian Gomez M.D. AT: AT Report ID: [id number] Reading Location: [id number] us Doni Briceño MD IMG XR PROCEDURES Final Res ult * XR Shoulder Right 2 or More Views (05/09/2025 4:57 PM CDT) Anatomical Region Laterality Modality Upper Extremities, Shoulder Right Comp uted Radiography 05/09/2025 5:02 PM CDT Narrative 05/09/2025 5:07 PM CDT EXAM DESCRIPTION: XR SHOULDER RIGHT 2 OR MORE VIEWS; XR KNEE RIGHT 3 VIEWS REASON FOR STUDY: accidental fall Pt to ED via EMS for c/o right shoulder and right knee pain after a fall today. Pt reports when she stood up she lost her balance and fell. Pt did hit her head, no LOC and no blood thinners. Hx of leukemia and previous brain bleed per pt. Pt A. Pt reports she feels like she is having a hard time saying what she wants to say. Pt attempted to say her weight and was unable to. Also attempted to explain story of last brain bleed and said I just can't say it. Pt reports she noticed the difficulty speaking when EMS was at her house. TECHNIQUE: 5 radiographic view(s) of the right shoulder . 3 radiographic views of the right knee COMPARISON: 04/02/2025 FINDINGS: Right shoulder: There is a mildly displaced distal end right clavicle fracture with slightly progressed immature callus formation. There is slight superior positioning of the distal end of the clavicle with respect to the acromion with slight widening of the coracoclavicular interval on some of projections which may reflect acromioclavicular joint separation injury. The glenohumeral joint space and alignment are within normal limits. No aggressive osseous lesions. Right knee: The alignment is normal. There is no acute fracture. Knee joint spaces are normal. No aggressive bone lesions. No knee effusion. Arterial calcifications are present. IMPRESSION: 1. No acute osseous abnormality in the right knee. 2. Redemonstration of mildly displaced distal end right clavicle fracture with slightly progressed immature callus formation. There is slight superior positioning of the distal end of the clavicle with respect to the acromion with slight widening of the coracoclavicular interval on some of projections which may reflect acromioclavicular joint separation injury. THIS IS AN ELECTRONICALLY VERIFIED FINAL REPORT 05/09/2025 5:07 PM - Electronically signed by Cristian Gomez M.D. AT: AT Report ID: [id number] Reading Location: [id number] Procedure Note Cristian Gomez MD - 05/09/2025 EXAM DESCRIPTION: XR SHOULDER RIGHT 2 OR MORE VIEWS; XR KNEE RIGHT 3 VIEWS REASON FOR STUDY: accidental fall Pt to ED via EMS for c/o right shoulder and right knee pain after a fall today. Pt reports when she stood up she lost her balance and fell. Ptdid hit her head, no LOC and no blood thinners. Hx of leukemia and previous brain bleed per pt. Pt A. Pt reports she feels like she is having a hard time saying what she wants to say. Pt attempted to say her weight andwas unable to. Also attempted to explain story of last brain bleed and Rose just can't say it. Pt reports she noticed the difficulty speaking whenEMS was at her house. TECHNIQUE: 5 radiographic view(s) of the right shoulder . 3 radiographic views of the right knee COMPARISON: 04/02/2025 FINDINGS: Right shoulder: There is a mildly displaced distal end right clavicle fracture withslightly progressed immature callus formation. There is slight superiorpositioning of the distal end of the clavicle with respect to the acromion with slight widening of the coracoclavicular interval on some of projections whichmay reflect acromioclavicular joint separation injury. The glenohumeraljoint space and alignment are within normal limits. No aggressive osseouslesions. Right knee: The alignment is normal. There is no acute fracture. Knee joint spacesare normal. No aggressive bone lesions. No knee effusion. Arterial calcifications are present. IMPRESSION: 1. No acute osseous abnormality in the right knee. 2. Redemonstration of mildly displaced distal end right clavicle fracture with slightly progressed immature callus formation. There is slightsuperior positioning of the distal end of the clavicle with respect to the acromion with slight widening of the coracoclavicular interval on some ofprojections which may reflect acromioclavicular joint separation injury. THIS IS AN ELECTRONICALLY VERIFIED FINAL REPORT 05/09/2025 5:07 PM - Electronically signed by Cristian Gomez M.D. AT: AT Report ID: [id number] Reading Location: [id number] us Doni Briceño MD IMG XR PROCEDURES Final Res ult * CT Cervical Spine WO Contrast (05/09/2025 4:23 PM CDT) Anatomical Region Laterality Modality Spine N/A Computed Tomogra phy 05/09/2025 4:28 PM CDT Narrative 05/09/2025 4:32 PM CDT EXAM DESCRIPTION: CT CERVICAL SPINE WO CONTRAST REASON FOR STUDY: Neck trauma (Age >= 65y) Pt is having difficulty with speech. Pt reports when she stood up she lost her balance and fell. Pt did hit her head, no LOC and no blood thinners. Pt is having some neck pain. Hx of leukemia and previous brain bleed in February. TECHNIQUE: Axial images through the cervical spine with sagittal and coronal reformatted images. Automated exposure control was used as a dose optimization technique for this examination. COMPARISON: CT cervical spine 12/20/2024 FINDINGS: ALIGNMENT: Minimal anterolisthesis of C4 on C5. VERTEBRAE: No fracture. Vertebral body heights well-maintained. Multilevel bilateral [id number]-[id number] facet arthrosis. DISCS: Multilevel degenerative disc disease, most pronounced at C4-C5 and C7-T1. INDIVIDUAL LEVELS: No high-grade spinal canal stenosis. Mild bilateral neural foraminal narrowing at C5-C6. UPPER THORACIC: Incompletely imaged. No significant osseous spinal stenosis or osseous neural foraminal stenosis. SKULL BASE: No significant finding. LUNG APICES: No significant abnormality. NECK SOFT TISSUES: Redemonstrated densely calcified nodules in the hqaaw-mpokwue-kcls-left thyroid glands. OTHER: No other significant findings. IMPRESSION: 1. No acute findings of the cervical spine. 2. Multilevel spondylosis as above. THIS IS AN ELECTRONICALLY VERIFIED FINAL REPORT 05/09/2025 4:32 PM - Electronically signed by Christopher Barney M.D. KR: RAY Report ID: [id number] Reading Location: [place] [id number] Procedure Note Christopher Barney MD - 05/09/2025 EXAM DESCRIPTION: CT CERVICAL SPINE WO CONTRAST REASON FOR STUDY: Neck trauma (Age >= 65y) Pt is having difficulty with speech. Pt reports when she stood up she losther balance and fell. Pt did hit her head, no LOC and no blood thinners. Pt is having some neck pain. Hx of leukemia and previous brain bleed in February. TECHNIQUE: Axial images through the cervical spine with sagittal andcoronal reformatted images. Automated exposure control was used as a doseoptimization technique for this examination. COMPARISON: CT cervical spine 12/20/2024 FINDINGS: ALIGNMENT: Minimal anterolisthesis of C4 on C5. VERTEBRAE: No fracture. Vertebral body heights well-maintained.Multilevel bilateral vcki-qi-xintjipk facet arthrosis. DISCS: Multilevel degenerative disc disease, most pronounced at C4-C5and C7-T1. INDIVIDUAL LEVELS: No high-grade spinal canal stenosis. Mild bilateral neural foraminal narrowing at C5-C6. UPPER THORACIC: Incompletely imaged. No significant osseous spinalstenosis or osseous neural foraminal stenosis. SKULL BASE: No significant finding. LUNG APICES: No significant abnormality. NECK SOFT TISSUES: Redemonstrated densely calcified nodules in the fproz-cjktowh-iifm-left thyroid glands. OTHER: No other significant findings. IMPRESSION: 1. No acute findings of the cervical spine. 2. Multilevel spondylosis as above. THIS IS AN ELECTRONICALLY VERIFIED FINAL REPORT 05/09/2025 4:32 PM - Electronically signed by Christopher Barney M.D. KR: RAY Report ID: [id number] Reading Location: [id number] Doni Briceño MD IMG CT PROCEDURES Final Res ult * ECG 12 lead (05/09/2025 4:19 PM CDT) 05/09/2025 4:19 PM CDT Narrative [facility] - 05/10/2025 5:50 PM CDT Vent Rate: 83 bpm RR Interval: [address] Interval: 144 msec QRS Duration: 82 msec QT Interval: 359 msec QTC Interval: 399 msec P-R-T [place]: 44 - 68 - 63 degrees IMPRESSION: SINUS RHYTHM NONSPECIFIC T-WAVE ABNORMALITY BORDERLINE ECG NO CHANGE FROM PREVIOUS TRACING NOTED Electronically Signed By: Harjeet Mendez MD Doni Briceño MD ECG ORDERABLES Final Resul t [facility] * CT Stroke Head WO Contrast (05/09/2025 4:15 PM CDT) Anatomical Region Laterality Modality Head N/A Computed Tomogra phy 05/09/2025 4:24 PM CDT Narrative 05/09/2025 4:28 PM CDT EXAM DESCRIPTION: CT STROKE HEAD WO CONTRAST REASON FOR STUDY: Stroke, follow up, Stroke Pt is having difficulty with speech. Pt reports when she stood up she lost her balance and fell. Pt did hit her head, no LOC and no blood thinners. Hx of leukemia and previous brain bleed in February. TECHNIQUE: Axial images acquired through the brain without intravenous contrast. Images stored on PACS. Automated exposure control was used as a dose optimization technique for this examination. COMPARISON: CT head 05/04/2025 FINDINGS: BRAIN: No hemorrhage, edema or mass effect. No recent infarct. Normal white matter. Redemonstrated remote lacunar infarcts involving the right basal ganglia EXTRA-AXIAL SPACES: Stable chronic small low-density fluid collection along the right frontal convexity measuring up to 4 mm in thickness. No acute extra-axial collection. CALVARIUM: No fracture. SINUSES/MASTOIDS: No fluid or mucosal thickening. ORBITS: No significant abnormality. OTHER: Redemonstrated right frontal calvarial ron hole. IMPRESSION: No acute intracranial findings. Stable small chronic right subdural hematoma. Findings were relayed to the ordering provider at the time of interpretation by the radiology help desk. THIS IS AN ELECTRONICALLY VERIFIED FINAL REPORT 05/09/2025 4:28 PM - Electronically signed by Christopher Barney M.D. KR: RAY Report ID: [id number] Reading Location: [place] [id number] Procedure Note Christopher Barney MD - 05/09/2025 EXAM DESCRIPTION: CT STROKE HEAD WO CONTRAST REASON FOR STUDY: Stroke, follow up, Stroke Pt is having difficulty with speech. Pt reports when she stood up she losther balance and fell. Pt did hit her head, no LOC and no blood thinners. Hx of leukemia and previous brain bleed in February. TECHNIQUE: Axial images acquired through the brain without intravenous contrast. Images stored on PACS. Automated exposure control was used asa dose optimization technique for this examination. COMPARISON: CT head 05/04/2025 FINDINGS: BRAIN: No hemorrhage, edema or mass effect. No recent infarct. Normal white matter. Redemonstrated remote lacunar infarcts involving theright basal ganglia EXTRA-AXIAL SPACES: Stable chronic small low-density fluid collectionalong the right frontal convexity measuring up to 4 mm in thickness. No acute extra-axial collection. CALVARIUM: No fracture. SINUSES/MASTOIDS: No fluid or mucosal thickening. ORBITS: No significant abnormality. OTHER: Redemonstrated right frontal calvarial ron hole. IMPRESSION: No acute intracranial findings. Stable small chronic right subdural hematoma. Findings were relayed to the ordering provider at the time ofinterpretation by the radiology help desk. THIS IS AN ELECTRONICALLY VERIFIED FINAL REPORT 05/09/2025 4:28 PM - Electronically signed by Christopher Barney M.D. KR: RAY Report ID: [id number] Reading Location: [place] [address] Doni Briceño MD IMG CT PROCEDURES Final Res ult * (ABNORMAL) Troponin T high-sensitivity series (baseline, 2hr, 4hr, 6hr) (05/09/2025 4:06 PM CDT) Trop T hs 20(H) <=14 ng/L Comment: Interpretive Data For further hscTnT resources including the diagnostic algorithm and an aid in interpretation, copy and paste this link: [email or web address].testcatalog.org/show/hsTrop Current Interpretive Data last revised 2020. Blood 05/09/2025 4:06 PM CDT 05/09/2025 4:10 PM CDT Doni Briceño MD LAB BLOOD ORDERABLES Final Result [facility] [place]) 5 [facility] Department [place] [address] * (ABNORMAL) eGFR (05/09/2025 4:06 PM CDT) eGFR 56(L) >=60 mL/min/1. 73 [...] interpretive data was last reviewed 2021. Blood 05/09/2025 4:06 PM CDT 05/09/2025 4:10 PM CDT Doni Briceño MD LAB BLOOD ORDERABLES Final Result [facility] ([place]) 1 [facility] Department [place] [address] * (ABNORMAL) CBC with auto differential (05/09/2025 4:06 PM CDT) WBC 13.12(H) 3.80 - 9.90 K/cumm Hgb 11.7(L) 11.9 - 15.5 g/dL [facility] ([place]) Hct 34.5(L) 35.6 - 45.5 % [facility] ([place]) Plt 354 150 - 400 K/cumm [facility] ([place]) MPV 9.8 9.1 - 12.3 fL [facility] ([place]) RBC 4.15 3.90 - 5.20 M/cumm [facility] ([place]) MCV 83.1 81.3 - 96.4 fL [facility] ([place]) MCH 28.2 27.1 - 33.3 pg [facility] ([place]) MCHC 33.9 32.3 - 35.7 g/dL [facility] ([place]) RDW CV 13.5 11.1 - 14.9 % [facility] ([place]) RDW SD 40.6 35.7 - 48.1 fL [facility] ([place]) NRBC abs 0.00 0.00 - 0.01 K/cumm [facility] ([place]) Blood Venous blood specimen / Unknown 05/09/2025 4:06 PM CDT 05/09/2025 4:10 PM CDT Narrative [facility] ([place]) - 05/09/2025 4:12 PM CDT Potential Stroke Patient us Doni Briceño MD LAB BLOOD ORDERABLES Final Result [facility] ([place]) 1 [facility] Department [place] [address] * (ABNORMAL) Manual Differential (05/09/2025 4:06 PM CDT) Differential Manual Cells Counted 100 [facility] ([place]) Neutrophil abs 5.38 1.50 - 6.50 K/cumm [facility] ([place]) Lymphocyte abs 6.69(H) 0.80 - 3.30 K/cumm [facility] ([place]) Monocyte abs 0.13(L) 0.20 - 0.80 K/cumm [facility] ([place]) Eosinophil abs 0.79(H) 0.00 - 0.50 K/cumm [facility] ([place]) Basophil abs 0.13(H) 0.00 - 0.10 K/cumm [facility] ([place]) Neutrophil pct 41.0 % [facility] ([place]) Comment: Interpretive Data Percent cell count reference ranges are not reported, since discordance with absolute values may lead to misinterpretation of CBC data. Current Interpretive Data was last revised on 2018. Lymphocyte pct 51.0 % [facility] ([place]) Comment: Interpretive Data Percent cell count reference ranges are not reported, since discordance with absolute values may lead to misinterpretation of CBC data. Current Interpretive Data was last revised on 2018. Monocyte pct 1.0 % [facility] ([place]) Comment: Interpretive Data Percent cell count reference ranges are not reported, since discordance with absolute values may lead to misinterpretation of CBC data. Current Interpretive Data was last revised on 2018. Eosinophil pct 6.0 % [facility] ([place]) Comment: Interpretive Data Percent cell count reference ranges are not reported, since discordance with absolute values may lead to misinterpretation of CBC data. Current Interpretive Data was last revised on 2018. Basophil pct 1.0 % [facility] ([place]) Comment: Interpretive Data Percent cell count reference ranges are not reported, since discordance with absolute values may lead to misinterpretation of CBC data. Current Interpretive Data was last revised on 2018. RBC morphology Consistent with RBC Indicies [facility] ([place]) Platelet estimate Adequate [facility] ([place]) Blood 05/09/2025 4:06 PM CDT 05/09/2025 4:10 PM CDT Doni Briceño MD LAB BLOOD ORDERABLES Final Result [facility] ([place]) 1 [facility] [place] [address] * aPTT (05/09/2025 4:06 PM CDT) aPTT 34 28 - 38 sec [facility] ([place]) Comment: Interpretive Data Heparin therapeutic range: 66.0 - 100.0 seconds. Range based on correlation with therapeutic heparin activity range of 0.3 - 0.7 Units/mL. Current interpretive data was last revised on 2023. Blood Venous blood specimen / Unknown 05/09/2025 4:06 PM CDT 05/09/2025 4:10 PM CDT Narrative [facility] ([place]) - 05/09/2025 4:36 PM CDT Potential stroke patient. Doni Briceño MD LAB BLOOD ORDERABLES Final Result [facility] ([place]) 1 [facility] [place] [place] [address] * Protime-INR (05/09/2025 4:06 PM CDT) PT 12.2 9.7 - 13.0 sec [facility] ([place]) INR 1.13 0.90 - 1.20 [facility] ([place]) Comment: Interpretive data Oral anticoagulant therapeutic ranges: Venous thromboembolism prophylaxis or treatment: 2.0-3.0 CARDIOLOGY Standard range: 2.0-3.0 High-intensity range: 2.5-3.5 Refer to indication-specific guidelines for appropriate target ranges for prosthetic heart valve replacement. Current interpretive data was last revised on 2019. Blood 05/09/2025 4:06 PM CDT 05/09/2025 4:10 PM CDT Doni Briceño MD LAB BLOOD ORDERABLES Final Result [facility]) 1 [facility] Department [place] [address] * (ABNORMAL) Comprehensive metabolic panel (05/09/2025 4:06 PM CDT) Sodium 137 135 - 145 mmol/L Potassium, pl 3.9 3.3 - 4.9 mmol/L [facility] ([place]) Chloride 102 97 - 110 mmol/L [facility] ([place]) CO2 18(L) 22 - 32 mmol/L [facility] ([place]) Anion gap 18(H) 2 - 15 mmol/L [facility] ([place]) BUN 15 6 - 25 mg/dL [facility] ([place]) Creatinine 1.07 0.60 - 1.10 mg/dL [facility] ([place]) Glucose 168 70 - 199 mg/dL [facility] ([place]) Comment: Interpretive Data Fasting glucose >/= [...] interpretive data was last revised 2022. Calcium 10.5(H) 8.5 - 10.3 mg/dL [facility] ([place]) Bilirubin, total 0.5 0.1 - 1.2 mg/dL [facility] ([place]) Protein, pl 7.4 6.5 - 8.5 g/dL [facility] ([place]) Albumin 4.2 3.5 - 5.0 g/dL [facility] ([place]) Alk phos 154(H) 40 - 130 Units/L [facility] ([place]) ALT 25 7 - 45 Units/L [facility] ([place]) AST 19 10 - 45 Units/L [facility] ([place]) Blood Venous blood specimen / Unknown 05/09/2025 4:06 PM CDT 05/09/2025 4:10 PM CDT Narrative [facility] ([place]) - 05/09/2025 4:34 PM CDT Potential Stroke Patient us Doni Briceño MD LAB BLOOD ORDERABLES Final Result [facility] ([place]) 1 [facility] [employer] [place] [email or web address] [address] * POCT glucose (05/09/2025 4:04 PM CDT) Glucose, POC 147 70 - 199 mg/dL Blood 05/09/2025 4:04 PM CDT 05/09/2025 4:04 PM CDT Doni Briceño MD LAB POCT ORDERABLES - DEVIC E Final Result [facility] ([place]) 1 [facility] [employer] [place] [email or web address] [address] * Urinalysis reflex to microscopic and culture Urine (05/04/2025 5:49 PM CDT) Color, ur Yellow Yellow Clarity, ur Clear Clear [facility] ([place]) Specific gravity, ur 1.014 1.003 - 1.030 [facility] ([place]) pH, urine 8.0 [facility] ([place]) Comment: Interpretive Data U rine pH is affected by diet, medications, systemic acid-base disturbances, and renal tubular function. pH may affect urinary stone formation. For example, urine pH below 6.0 may help reduce the tendency for calcium phosphate stones and pH greater than 6.0 may reduce the tendency for uric acid stone formation. Source: [facility] Current Interpretive Data was last revised on 2017 Protein, ur ql Trace Negative [facility] ([place]) Glucose, ur ql Negative Negative [facility] ([place]) Ketones, ur Negative Negative [facility] ([place]) Bilirubin, ur Negative Negative [facility] ([place]) Blood, ur Negative Negative [facility] ([place]) Urobilinogen, ur <2.0 <2.0 mg/dL [facility] ([place]) Nitrite, ur Negative Negative [facility] ([place]) Leukocyte esterase, ur Negative Negative [facility] ([place]) UA reflex comment Reflex conditions for microscopic UA and culture not met. [facility] ([place]) Urine 05/04/2025 5:49 PM CDT 05/04/2025 5:49 PM CDT us Neil Courtney MD LAB MICROBIOLOGY - GENERAL ORD ERABLES Final Result [facility] ([place]) 1 [facility] Department [place] [address] * CT Stroke Head WO Contrast (05/04/2025 5:09 PM CDT) Anatomical Region Laterality Modality Head N/A Computed Tomogra phy 05/04/2025 5:19 PM CDT Narrative 05/04/2025 5:24 PM CDT EXAM DESCRIPTION: CT STROKE HEAD WO CONTRAST REASON FOR STUDY: Neuro deficit, acute, stroke suspected, Stroke Right side facial droop Babbling Mood changes that started at 11:00 a.m. It appears that she has had some kind of surgery to the right side of the brain Patient had to be calmed down before they brought her down for this exam TECHNIQUE: Axial images acquired through the brain without intravenous contrast. Images stored on PACS. Automated exposure control was used as a dose optimization technique for this examination. COMPARISON: 04/12/2025 FINDINGS: BRAIN: Small subdural fluid collection overlying the right frontal lobe is largely unchanged in the appearance and size when compared with the 02/10/2025. interval evolution of previous hemorrhage is suspected.. Overlying ron hole is again noted. No new areas of hemorrhage are clearly identified. No significant mass effect is seen. Patchy hypodensity of the cerebral white matter suggests chronic small-vessel ischemic changes. Diffuse atrophy of the brain is noted. EXTRA-AXIAL SPACES: See above. No additional abnormalities are seen.. CALVARIUM: Right-sided ron hole is again noted. SINUSES/MASTOIDS: No fluid or mucosal thickening. ORBITS: No significant abnormality. OTHER: No other significant abnormality. IMPRESSION: 1. Small subdural fluid collection overlying the right frontal lobe is largely unchanged in size and appearance when compared with the 02/10/2025. No new areas of hemorrhage are clearly identified. 2. Diffuse atrophy of the brain is noted. Chronic small-vessel ischemic changes are again noted. 3. No findings are seen to suggest recent infarction. This negative result will be called by [facility] staff to the patient's provider at this time. THIS IS AN ELECTRONICALLY VERIFIED FINAL REPORT 05/04/2025 5:24 PM - Electronically signed by Christopher Lemon M.D. KH: DREA Report ID: [id number] Reading Location: [id number] Procedure Note Christopher Lemon MD - 05/04/2025 EXAM DESCRIPTION: CT STROKE HEAD WO CONTRAST REASON FOR STUDY: Neuro deficit, acute, stroke suspected, Stroke Right side facial droop Babbling Mood changes that started at 11:00 a.m.It appears that she has had some kind of surgery to the right side of thebrain Patient had to be calmed down before they brought her down for this exam TECHNIQUE: Axial images acquired through the brain without intravenous contrast. Images stored on PACS. Automated exposure control was used asa dose optimization technique for this examination. COMPARISON: 04/12/2025 FINDINGS: BRAIN: Small subdural fluid collection overlying the right frontal lobeis largely unchanged in the appearance and size when compared with the 02/10/2025. interval evolution of previous hemorrhage is suspected.. Overlying ron hole is again noted. No new areas of hemorrhage areclearly identified. No significant mass effect is seen. Patchy hypodensity ofthe cerebral white matter suggests chronic small-vessel ischemic changes.Diffuse atrophy of the brain is noted. EXTRA-AXIAL SPACES: See above. No additional abnormalities are seen.. CALVARIUM: Right-sided ron hole is again noted. SINUSES/MASTOIDS: No fluid or mucosal thickening. ORBITS: No significant abnormality. OTHER: No other significant abnormality. IMPRESSION: 1. Small subdural fluid collection overlying the right frontal lobe is largely unchanged in size and appearance when compared with the02/10/2025. No new areas of hemorrhage are clearly identified. 2. Diffuse atrophy of the brain is noted. Chronic small-vessel ischemic changes are again noted. 3. No findings are seen to suggest recent infarction. This negativeresult will be called by [facility] staff to the patient's provider at this time. THIS IS AN ELECTRONICALLY VERIFIED FINAL REPORT 05/04/2025 5:24 PM - Electronically signed by Christopher Lemon M.D. KH: DREA Report ID: [id number] Reading Location: [place] [address] Neil Courtney MD [facility] CT PROCEDURES Final Result * ECG 12 lead (05/04/2025 4:53 PM CDT) 05/04/2025 4:53 PM CDT Narrative [facility] - 05/05/2025 8:41 AM CDT Vent Rate: 87 bpm RR Interval: [address] Interval: 138 msec QRS Duration: 100 msec QT Interval: 368 msec QTC Interval: 412 msec P-R-T [place]: 49 - 60 - 48 degrees IMPRESSION: SINUS RHYTHM WITH OCCASIONAL VENTRICULAR PREMATURE COMPLEXES MINIMAL ST DEPRESSION [0.025+ mV ST DEPRESSION] BORDERLINE ECG No change compared to prior EKG Electronically Signed By: Rigo Grace MD [facility] Neil Courtney MD ECG ORDERABLES Final Result [facility] * (ABNORMAL) eGFR (05/04/2025 4:51 PM CDT) eGFR 58(L) >=60 mL/min/1. 73 m2 [...] interpretive data was last reviewed 2021. Blood 05/04/2025 4:51 PM CDT 05/04/2025 4:54 PM CDT Neil Courtney MD LAB BLOOD ORDERABLES Final Res ult [facility] ([place]) 1 [facility] Department of Laboratories [place], [place] [id number] * (ABNORMAL) Differential, auto (05/04/2025 4:51 PM CDT) Neutrophil abs 5.66 1.50 - 6.50 K/cumm Imm gran abs 0.03 0.00 - 0.10 K/cumm [facility] ([place]) Lymphocyte abs 5.29(H) 0.80 - 3.30 K/cumm [facility] ([place]) Monocyte abs 0.56 0.20 - 0.80 K/cumm [facility] ([place]) Eosinophil abs 0.51(H) 0.00 - 0.50 K/cumm [facility] ([place]) Basophil abs 0.07 0.00 - 0.10 K/cumm [facility] ([place]) Neutrophil pct 46.8 % [facility] ([place]) Comment: Interpretive Data Percent cell count reference ranges are not reported, since discordance with absolute values may lead to misinterpretation of CBC data. Current Interpretive Data was last revised on 2018. Imm gran pct 0.2 % [facility] ([place]) Comment: Interpretive Data Percent cell count reference ranges are not reported, since discordance with absolute values may lead to misinterpretation of CBC data. Current Interpretive Data was last revised on 2018. Lymphocyte pct 43.6 % [facility] ([place]) Comment: Interpretive Data Percent cell count reference ranges are not reported, since discordance with absolute values may lead to misinterpretation of CBC data. Current Interpretive Data was last revised on 2018. Monocyte pct 4.6 % [facility] ([place]) Comment: Interpretive Data Percent cell count reference ranges are not reported, since discordance with absolute values may lead to misinterpretation of CBC data. Current Interpretive Data was last revised on 2018. Eosinophil pct 4.2 % [facility] ([place]) Comment: Interpretive Data Percent cell count reference ranges are not reported, since discordance with absolute values may lead to misinterpretation of CBC data. Current Interpretive Data was last revised on 2018. Basophil pct 0.6 % [facility] ([place]) Comment: Interpretive Data Percent cell count reference ranges are not reported, since discordance with absolute values may lead to misinterpretation of CBC data. Current Interpretive Data was last revised on 2018. Blood 05/04/2025 4:51 PM CDT 05/04/2025 4:54 PM CDT us Neil Courtney MD LAB BLOOD ORDERABLES Final Res ult [facility] ([place]) 1 [facility] Department [place] [address] * (ABNORMAL) CBC with auto differential (05/04/2025 4:51 PM CDT) WBC 12.12(H) 3.80 - 9.90 K/cumm Hgb 12.4 11.9 - 15.5 g/dL [facility] ([place]) Hct 36.5 35.6 - 45.5 % [facility] ([place]) Plt 309 150 - 400 K/cumm [facility] ([place]) MPV 9.9 9.1 - 12.3 fL [facility] ([place]) RBC 4.42 3.90 - 5.20 M/cumm [facility] ([place]) MCV 82.6 81.3 - 96.4 fL [facility] ([place]) MCH 28.1 27.1 - 33.3 pg [facility] ([place]) MCHC 34.0 32.3 - 35.7 g/dL [facility] ([place]) RDW CV 13.6 11.1 - 14.9 % [facility] ([place]) RDW SD 41.1 35.7 - 48.1 fL [facility] ([place]) NRBC abs 0.00 0.00 - 0.01 K/cumm [facility] ([place]) Morphologic Screen Results confirmed by manual morphology review. [facility] ([place]) Blood 05/04/2025 4:51 PM CDT 05/04/2025 4:54 PM CDT us Neil Courtney MD LAB BLOOD ORDERABLES Edited Re sult - Final [facility] ([place]) 1 [facility] Department [place] [address] * Protime-INR (05/04/2025 4:51 PM CDT) PT 11.6 9.7 - 13.0 sec [facility] ([place]) INR 1.07 0.90 - 1.20 [facility] Comment: Interpretive data Oral anticoagulant therapeutic ranges: Venous thromboembolism prophylaxis or treatment: 2.0-3.0 CARDIOLOGY Standard range: 2.0-3.0 High-intensity range: 2.5-3.5 Refer to indication-specific guidelines for appropriate target ranges for prosthetic heart valve replacement. Current interpretive data was last revised on 2019. Blood 05/04/2025 4:51 PM CDT 05/04/2025 4:54 PM CDT us Neil Courtney MD LAB BLOOD ORDERABLES Final Res ult [facility] ([place]) 1 [facility] Department [place] [address] * (ABNORMAL) Comprehensive metabolic panel (05/04/2025 4:51 PM CDT) Sodium 141 135 - 145 mmol/L Potassium, pl 3.9 3.3 - 4.9 mmol/L [facility] ([place]) Chloride 105 97 - 110 mmol/L [facility] ([place]) CO2 17(L) 22 - 32 mmol/L [facility] ([place]) Anion gap 19(H) 2 - 15 mmol/L [facility] ([place]) BUN 20 6 - 25 mg/dL [facility] ([place]) Creatinine 1.05 0.60 - 1.10 mg/dL [facility] ([place]) Glucose 259(H) 70 - 199 mg/dL [facility] ([place]) [...] interpretive data was last revised 2022. Calcium 10.5(H) 8.5 - 10.3 mg/dL [facility] ([place]) Bilirubin, total 0.3 0.1 - 1.2 mg/dL [facility] ([place]) Protein, pl 7.5 6.5 - 8.5 g/dL [facility] ([place]) Albumin 4.2 3.5 - 5.0 g/dL [facility] ([place]) Alk phos 154(H) 40 - 130 Units/L [facility] ([place]) ALT 28 7 - 45 Units/L [facility] ([place]) AST 27 10 - 45 Units/L [facility] ([place]) Blood 05/04/2025 4:51 PM CDT 05/04/2025 4:54 PM CDT us Neil Courtney MD LAB BLOOD ORDERABLES Final Res ult Performing Organization Address City/[facility]/ZIP Co de Phone Number [facility] ([place]) 1 [facility] [place] [email or web address] [place] [address] * (ABNORMAL) POCT glucose (05/04/2025 4:42 PM CDT) Glucose, POC 260(H) 70 - 199 mg/dL Blood 05/04/2025 4:42 PM CDT 05/04/2025 4:42 PM CDT us Notinfile Unknown LAB POCT ORDERABLES - DEVICE F inal Result Performing Organization Address [facility] Co de Phone Number [facility] ([place]) 1 [facility] [place] [email or web address] [address] * (ABNORMAL) POCT glucose (04/13/2025 11:32 AM CDT) Glucose, POC 203(H) 70 - 199 mg/dL Blood 04/13/2025 11:3 2 AM CDT 04/13/2025 11:32 AM CDT us Al Ramírez II, MD LAB POCT ORDERABLES - DEVICE Final Result Performing Organization Address City/[facility]/ZIP Co de Phone Number [facility] ([place]) [address] Department [place] [address] * (ABNORMAL) eGFR (04/13/2025 7:44 AM CDT) Pathologist [facility] eGFR 51(L) >=60 mL/min/1. 73 m2 Comment: Interpretive Data [...] interpretive data was last reviewed 2021. Blood 04/13/2025 7:44 AM CDT 04/13/2025 8:00 AM CDT Beverly Goff DO LAB BLOOD ORDERABLES Fin al Result [facility] ([place]) 1 [facility] Department [place] [address] * (ABNORMAL) Differential, auto (04/13/2025 7:44 AM CDT) Neutrophil abs 4.82 1.50 - 6.50 K/cumm Imm gran abs 0.02 0.00 - 0.10 K/cumm [facility] ([place]) Lymphocyte abs 3.80(H) 0.80 - 3.30 K/cumm [facility] ([place]) Monocyte abs 0.54 0.20 - 0.80 K/cumm [facility] ([place]) Eosinophil abs 0.64(H) 0.00 - 0.50 K/cumm [facility] ([place]) Basophil abs 0.08 0.00 - 0.10 K/cumm [facility] ([place]) Neutrophil pct 48.6 % [facility] ([place]) Comment: Interpretive Data Percent cell count reference ranges are not reported, since discordance with absolute values may lead to misinterpretation of CBC data. Current Interpretive Data was last revised on 2018. Imm gran pct 0.2 % [facility] ([place]) Comment: Interpretive Data Percent cell count reference ranges are not reported, since discordance with absolute values may lead to misinterpretation of CBC data. Current Interpretive Data was last revised on 2018. Lymphocyte pct 38.4 % [facility] ([place]) Comment: Interpretive Data Percent cell count reference ranges are not reported, since discordance with absolute values may lead to misinterpretation of CBC data. Current Interpretive Data was last revised on 2018. Monocyte pct 5.5 % [facility] ([place]) Comment: Interpretive Data Percent cell count reference ranges are not reported, since discordance with absolute values may lead to misinterpretation of CBC data. Current Interpretive Data was last revised on 2018. Eosinophil pct 6.5 % [facility] ([place]) Comment: Interpretive Data Percent cell count reference ranges are not reported, since discordance with absolute values may lead to misinterpretation of CBC data. Current Interpretive Data was last revised on 2018. Basophil pct 0.8 % [facility] ([place]) Comment: Interpretive Data Percent cell count reference ranges are not reported, since discordance with absolute values may lead to misinterpretation of CBC data. Current Interpretive Data was last revised on 2018. Blood 04/13/2025 7:44 AM CDT 04/13/2025 8:00 AM CDT us Beverly Goff DO LAB BLOOD ORDERABLES Fin al Result [facility] ([place]) 1 [facility] Department [place] [address] * (ABNORMAL) CBC with auto differential (04/13/2025 7:44 AM CDT) WBC 9.90 3.80 - 9.90 K/cumm Hgb 11.1(L) 11.9 - 15.5 g/dL [facility] ([place]) Hct 33.5(L) 35.6 - 45.5 % [facility] ([place]) Plt 286 150 - 400 K/cumm [facility] ([place]) MPV 9.6 9.1 - 12.3 fL [facility] ([place]) RBC 3.96 3.90 - 5.20 M/cumm [facility] ([place]) MCV 84.6 81.3 - 96.4 fL [facility] ([place]) MCH 28.0 27.1 - 33.3 pg [facility] ([place]) MCHC 33.1 32.3 - 35.7 g/dL [facility] ([place]) RDW CV 14.5 11.1 - 14.9 % [facility] ([place]) RDW SD 44.5 35.7 - 48.1 fL [facility] ([place]) NRBC abs 0.00 0.00 - 0.01 K/cumm [facility] ([place]) Blood 04/13/2025 7:44 AM CDT 04/13/2025 8:00 AM CDT Beverly Goff DO LAB BLOOD ORDERABLES Fin al Result [facility] ([place]) 1 [facility] Department of Laboratories [place], [place] [address] * (ABNORMAL) Levetiracetam level (04/13/2025 7:44 AM CDT) Levetiracetam (Keppra) 43.9(H) 10.0 - 40.0 mcg/mL Her ref Lab Comment: ADDITIONAL INFORMATION This test was developed and its performance characteristics determined by [facility] in a manner consistent with CLIA requirements. This test has not been cleared or approved by the U.S. Food and Drug Administration. Test Performed by: [facility] [address] [place] [address] Retail Director: Salvatore Larson Ph.D.; CLIA# [id number] Blood 04/13/2025 7:44 AM CDT 04/13/2025 8:00 AM CDT Narrative [facility] ([place]) - 04/15/2025 1:25 PM CDT please add on to previous labs Beverly DunhamDouble R Group DO LAB BLOOD ORDERABLES Fin al Result Performing Organization Address City/[facility]/ZIP Co de Phone Number DARINEL RICHTER ([place]) 1 [place] [address] Her ref Lab * Phosphorus (04/13/2025 7:44 AM CDT) Phosphorus, pl 3.1 2.3 - 4.5 mg/dL Blood 04/13/2025 7:44 AM CDT 04/13/2025 8:00 AM CDT Beverly Goff DO LAB BLOOD ORDERABLES Fin al Result Performing Organization Address [facility] de Phone Number DARINEL RICHTER ([place]) 1 [facility] [place] [address] * Magnesium (04/13/2025 7:44 AM CDT) Magnesium 1.6 1.4 - 2.5 mg/dL Blood 04/13/2025 7:44 AM CDT 04/13/2025 8:00 AM CDT Beverly DunhamWellpepper LAB BLOOD ORDERABLES Fin al Result Performing Organization Address City/[facility] Co de Phone Number DARINEL RICHTER ([place]) 1 [facility] [email or web address] [address] * (ABNORMAL) Hemoglobin A1c (04/13/2025 7:44 AM CDT) Hgb A1C 7.3(H) 4.0 - 5.6 % Estimated Average Glucose 163 mg/dL [facility] ([place]) Comment: The ADA recommends reporting an estimated Average Glucose (eAG) with all Hemoglobin A1c results using the equation derived from a study of 507 normal and diabetic adults. Minority populations were underrepresented and children were not included. (Diabetes Care 31:9357-1585, 2008). The eAG is not equivalent to a fasting glucose. Blood 04/13/2025 7:44 AM CDT 04/13/2025 8:28 AM CDT us Al Ramírez II, MD LAB BLOOD ORDERABLES F inal Result [facility] ([place]) 1 [facility] [place] [address] * (ABNORMAL) Comprehensive metabolic panel (04/13/2025 7:44 AM CDT) Sodium 140 135 - 145 mmol/L Potassium, pl 3.8 3.3 - 4.9 mmol/L [facility] ([place]) Chloride 103 97 - 110 mmol/L [facility] ([place]) CO2 23 22 - 32 mmol/L [facility] ([place]) Anion gap 14 2 - 15 mmol/L [facility] ([place]) BUN 23 6 - 25 mg/dL [facility] ([place]) Creatinine 1.16(H) 0.60 - 1.10 mg/dL [facility] ([place]) Glucose 164 70 - 199 mg/dL [facility] ([place]) [...] interpretive data was last revised 2022. Calcium 9.9 8.5 - 10.3 mg/dL [facility] ([place]) Bilirubin, total 0.3 0.1 - 1.2 mg/dL [facility] ([place]) Protein, pl 6.8 6.5 - 8.5 g/dL [facility] ([place]) Albumin 3.8 3.5 - 5.0 g/dL [facility] ([place]) Alk phos 124 40 - 130 Units/L [facility] ([place]) ALT 17 7 - 45 Units/L [facility] ([place]) AST 13 10 - 45 Units/L [facility] ([place]) Blood 04/13/2025 7:44 AM CDT 04/13/2025 8:00 AM CDT us Beverly Goff DO LAB BLOOD ORDERABLES Fin al Result [facility] ([place]) 1 [facility] [place] [address] * POCT glucose (04/13/2025 7:41 AM CDT) Glucose, POC 158 70 - 199 mg/dL Blood 04/13/2025 7:41 AM CDT 04/13/2025 7:41 AM CDT us Al Ramírez II, MD LAB POCT ORDERABLES - DEVICE Final Result [facility] ([place]) 1 [facility] Department [place] [email or web address] [place] [address] * CT CRITICAL CARE ILL/INJURED PATIENT INIT 30-74 MIN (04/13/2025 5:26 AM CDT) Narrative Liat Potts MD - 04/13/2025 5:26 AM CDT Liat Potts MD 04/13/2025 5:27 AM Critical Care Performed by: Liat Potts MD Authorized by: Liat Potts MD Critical care provider statement: As reflected in the history, physical exam, orders, notes, and/or MDM, I was personally present while the patient was critically ill and provided critical care services for 30 minutes, excluding time involved in separately billable procedures. Critical care was necessary to treat or prevent imminent or life-threatening deterioration of the following condition(s): seizure Concern for acute bleeding and chronic subdural. Required secondary scan and to conversations with Neurosurgery. Critical care was time spent by me providing the following: continuous telemetry, continuous pulse oximetry, continuous capnography, interpretation of bedside monitors, imaging, and arterial/venous [...] medical record. I admitted this patient to a continuous cardiac monitored bed. us Liat Potts MD IN CLINIC/BEDSIDE ORDERAB LES Final Result * (ABNORMAL) POCT glucose (04/13/2025 3:19 AM CDT) Glucose, POC 213(H) 70 - 199 mg/dL Blood 04/13/2025 3:19 AM CDT 04/13/2025 3:19 AM CDT us Beverly Goff DO LAB POCT ORDERABLES - DE VICE Final Result Performing Organization Address City/State/[facility] Co de Phone Number [facility] [place] 1 [facility] Department of Laboratories [place], [place] [id number] * CT Head WO Contrast (04/12/2025 9:04 PM CDT) Anatomical Region Laterality Modality Head and Neck N/A Computed Tomogra phy 04/12/2025 9:47 PM CDT Narrative 04/12/2025 9:55 PM CDT EXAM DESCRIPTION: CT HEAD WO CONTRAST REASON FOR STUDY: Seizure, subdural hematoma patient had two absent seizures per bystanders per EMS and states that patient has a hx of seizures when she becomes hypoglycemic, per EMS patients BG was 170 upon their arrival. Patient was unresponsive upon their arrival and post ictal. Patient now Aper EMS but appears fatigued. TECHNIQUE: Axial images acquired through the brain without intravenous contrast. Images stored on PACS. Automated exposure control was used as a dose optimization technique for this examination. COMPARISON: 04/12/2025, 02/28/2025 FINDINGS: Redemonstrated right cerebral convexity subdural hematoma measuring up to 6 mm in maximum thickness. No significant interval change from the prior examination performed earlier today. The hematoma is decreased in size relative to 02/28/2025 and is decreased in density relative to 02/28/2025. The previously described possible punctate focus of hyperdensity within the subdural hematoma overlying the right frontal lobe is not well seen on this examination. No midline shift. Basal cisterns are widely patent. Mild diffuse parenchymal volume loss. 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 There is a right frontal ron hole with a small amount of gliosis extending into the right lateral ventricle. Scattered mild hypoattenuation in the periventricular and subcortical white matter is nonspecific but can be seen in the setting of chronic small vessel ischemic disease. There are atherosclerotic calcifications of the carotid siphons. The calvarium is normal without acute fracture. The orbits are unremarkable. The paranasal sinuses are well aerated. The mastoid air cells are well aerated. IMPRESSION: No significant interval change in right cerebral convexity subdural hematoma compared to CT performed earlier today. THIS IS AN ELECTRONICALLY VERIFIED FINAL REPORT 04/12/2025 9:55 PM - Electronically signed by Vidal Ibarra M.D. MM: MM Report ID: [id number] Reading Location: [id number] Procedure Note Vidal Ibarra MD - 04/12/2025 EXAM DESCRIPTION: CT HEAD WO CONTRAST REASON FOR STUDY: Seizure, subdural hematoma patient had two absent seizures per bystanders per EMS and states that patient has a hx of seizures when she becomes hypoglycemic, per EMSpatients BG was 170 upon their arrival. Patient was unresponsive upon theirarrival and post ictal. Patient now Aper EMS but appears fatigued. TECHNIQUE: Axial images acquired through the brain without intravenous contrast. Images stored on PACS. Automated exposure control was used asa dose optimization technique for this examination. COMPARISON: 04/12/2025, 02/28/2025 FINDINGS: Redemonstrated right cerebral convexity subdural hematoma measuring up to6 mm in maximum thickness. No significant interval change from the prior examination performed earlier today. The hematoma is decreased in size relative to 02/28/2025 and is decreased in density relative to 02/28/2025. The previously described possible punctate focus of hyperdensity withinthe subdural hematoma overlying the right frontal lobe is not well seen onthis examination. No midline shift. Basal cisterns are widely patent. Mild diffuse parenchymal volume loss. 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 There is a right frontal ron hole with a small amount ofgliosis extending into the right lateral ventricle. Scattered mildhypoattenuation in the periventricular and subcortical white matter is nonspecific but canbe seen in the setting of chronic small vessel ischemic disease. There are atherosclerotic calcifications of the carotid siphons. The calvarium is normal without acute fracture. The orbits areunremarkable. The paranasal sinuses are well aerated. The mastoid air cells are well aerated. IMPRESSION: No significant interval change in right cerebral convexity subduralhematoma compared to CT performed earlier today. THIS IS AN ELECTRONICALLY VERIFIED FINAL REPORT 04/12/2025 9:55 PM - Electronically signed by Vidal Ibarra M.D. MM: MM Report ID: [id number] Reading Location: [place] [address] [address] PROCEDURES Final R esult * Urinalysis reflex to microscopic and culture Urine (04/12/2025 6:06 PM CDT) Color, ur Yellow Yellow Clarity, ur Clear Clear DARINEL Sorensen ([place]) Specific gravity, ur 1.015 1.003 - 1.030 DARINEL [facility] ([place]) pH, urine 5.5 DARINEL [facility] ([place]) Comment: Interpretive Data U rine pH is affected by diet, medications, systemic acid-base disturbances, and renal tubular function. pH may affect urinary stone formation. For example, urine pH below 6.0 may help reduce the tendency for calcium phosphate stones and pH greater than 6.0 may reduce the tendency for uric acid stone formation. Source: [facility] Current Interpretive Data was last revised on 2017 Protein, ur ql Negative Negative [facility] ([place]) Glucose, ur ql Negative Negative [facility] ([place]) Ketones, ur Negative Negative [facility] ([place]) Bilirubin, ur Negative Negative [facility] ([place]) Blood, ur Negative Negative [facility] ([place]) Urobilinogen, ur <2.0 <2.0 mg/dL [facility] ([place]) Nitrite, ur Negative Negative [facility] ([place]) Leukocyte esterase, ur Negative Negative [facility] ([place]) UA reflex comment Reflex conditions for microscopic UA and culture not met. [facility] ([place]) Urine 04/12/2025 6:06 PM CDT 04/12/2025 6:08 PM CDT us Rupa RIGGINS LAB MICROBIOLOGY - GENERA L ORDERABLES Final Result DARINEL RICHTER ([place]) 1 [facility] [place] [address] * CT Head WO Contrast (04/12/2025 3:15 PM CDT) Anatomical Region Laterality Modality Head and Neck N/A Computed Tomogra phy 04/12/2025 3:20 PM CDT Narrative 04/12/2025 4:34 PM CDT EXAM DESCRIPTION: CT HEAD WO CONTRAST REASON FOR STUDY: Seizure history of brain bleed Patient had two absent seizures today, hx of subdural hematoma with surgery in December. TECHNIQUE: Axial images acquired through the brain without intravenous contrast. Images stored on PACS. Automated exposure control was used as a dose optimization technique for this examination. COMPARISON: 02/28/2025 FINDINGS: BRAIN/ EXTRA-AXIAL SPACES: There has been interval decrease in size of mixed attenuation subdural hematoma overlying the right frontoparietal temporal lobes reflective of subacute on chronic subdural hemorrhage measuring up to 6 mm in thickness with mild mass-effect upon the right frontal lobe. Punctate foci of hyperattenuation within the right subdural hematoma overlying the right frontal lobe could reflect regions of acute subdural hemorrhage.. No acute intraparenchymal hemorrhage. Nonspecific periventricular and subcortical white matter hypoattenuation which can be seen as sequela of chronic small vessel ischemic disease. No acute intraventricular hemorrhage. Basal cisterns are patent. No midline shift. Old lacunar infarcts adjacent to the right basal ganglia are present. No definitive CT evidence of recent territorial infarct. CALVARIUM: No acute fracture. Postsurgical changes of right frontoparietal craniotomy. SINUSES/MASTOIDS: Mild mucosal thickening of the ethmoid air cells. Otherwise, opacification of a few bilateral mastoid air cells. Otherwise, no fluid or mucosal thickening. ORBITS: No significant abnormality. IMPRESSION: 1.Interval decrease in size of mixed attenuation subdural hematoma overlying the right frontoparietal temporal lobes reflective of subacute on chronic subdural hemorrhage measuring up to 6 mm in thickness which has decreased in size compared to prior study with mild mass-effect upon the right frontal lobe. Punctate foci of hyperattenuation within the right subdural hematoma overlying the right frontal lobe could reflect regions of acute subdural hemorrhage . No midline shift. Findings were telephoned by Dr. Gomez to RUPA PERERA at 3:32 p.m. GLOBAL LOGISTICS ANALYST on 04/12/25. THIS IS AN ELECTRONICALLY VERIFIED FINAL REPORT 04/12/2025 4:34 PM - Electronically signed by Cristian Gomez M.D. AT: AT Report ID: [id number] Reading Location: [id number] Procedure Note Cristian Gomez MD - 04/12/2025 EXAM DESCRIPTION: CT HEAD WO CONTRAST REASON FOR STUDY: Seizure history of brain bleed Patient had two absent seizures today, hx of subdural hematoma withsurgery in December. TECHNIQUE: Axial images acquired through the brain without intravenous contrast. Images stored on PACS. Automated exposure control was used asa dose optimization technique for this examination. COMPARISON: 02/28/2025 FINDINGS: BRAIN/ EXTRA-AXIAL SPACES: There has been interval decrease in size ofmixed attenuation subdural hematoma overlying the right frontoparietal temporal lobes reflective of subacute on chronic subdural hemorrhage measuring upto 6 mm in thickness with mild mass-effect upon the right frontal lobe.Punctate foci of hyperattenuation within the right subdural hematoma overlying the right frontal lobe could reflect regions of acute subdural hemorrhage..No acute intraparenchymal hemorrhage. Nonspecific periventricular and subcortical white matter hypoattenuation which can be seen as sequela of chronic small vessel ischemic disease. No acute intraventricular hemorrhage. Basal cisterns are patent. No midline shift. Old lacunar infarcts adjacent to the right basal ganglia are present. Nodefinitive CT evidence of recent territorial infarct. CALVARIUM: No acute fracture. Postsurgical changes of rightfrontoparietal craniotomy. SINUSES/MASTOIDS: Mild mucosal thickening of the ethmoid air cells. Otherwise, opacification of a few bilateral mastoid air cells. Otherwise,no fluid or mucosal thickening. ORBITS: No significant abnormality. IMPRESSION: 1.Interval decrease in size of mixed attenuation subdural hematomaoverlying the right frontoparietal temporal lobes reflective of subacute on chronic subdural hemorrhage measuring up to 6 mm in thickness which has decreasedin size compared to prior study with mild mass-effect upon the right frontal lobe. Punctate foci of hyperattenuation within the right subduralhematoma overlying the right frontal lobe could reflect regions of acute subdural hemorrhage . No midline shift. Findings were telephoned by Dr. Gomez to RUPA PERERA at 3:32 p.m.GLOBAL LOGISTICS ANALYST on 04/12/25. THIS IS AN ELECTRONICALLY VERIFIED FINAL REPORT 04/12/2025 4:34 PM - Electronically signed by Cristian Gomez M.D. AT: AT Report ID: [id number] Reading Location: [id number] us Rupa RIGGINS IMG CT PROCEDURES Final R esult * (ABNORMAL) eGFR (04/12/2025 3:12 PM CDT) eGFR 49(L) >=60 mL/min/1. 73 [...] interpretive data was last reviewed 2021. Blood 04/12/2025 3:12 PM CDT 04/12/2025 3:14 PM CDT us Rupa RIGGINS LAB BLOOD ORDERABLES Aracelis l Result [facility] ([place]) 1 [facility] Department [place] [address] * (ABNORMAL) Basic metabolic panel (04/12/2025 3:12 PM CDT) Sodium 139 135 - 145 mmol/L Potassium, pl 4.3 3.3 - 4.9 mmol/L [facility] ([place]) Chloride 103 97 - 110 mmol/L [facility] ([place]) CO2 21(L) 22 - 32 mmol/L [facility] ([place]) Anion gap 15 2 - 15 mmol/L [facility] ([place]) BUN 22 6 - 25 mg/dL [facility] ([place]) Creatinine 1.20(H) 0.60 - 1.10 mg/dL [facility] ([place]) Glucose 131 70 - 199 mg/dL [facility] ([place]) Comment: Interpretive Data Fasting glucose [...] interpretive data was last revised 2022. Calcium 9.8 8.5 - 10.3 mg/dL DARINEL RICHTER ([place]) Blood 04/12/2025 3:12 PM CDT 04/12/2025 3:14 PM CDT us Rupa RIGGINS LAB BLOOD ORDERABLES Aracelis l Result DARINEL RICHTER ([place]) 1 [facility] Department [place] [address] * XR Chest 1 Vw Portable (04/12/2025 2:40 PM CDT) Anatomical Region Laterality Modality Body, Chest N/A Computed Radiogr aphy 04/12/2025 2:44 PM CDT Narrative 04/12/2025 2:45 PM CDT EXAM DESCRIPTION: XR CHEST 1 VIEW REASON FOR STUDY: seizure TECHNIQUE: 1 radiographic view(s) of the chest. COMPARISON: 03/01/2025 FINDINGS: LUNGS: No focal opacity, pleural effusion, or pneumothorax. HEART/MEDIASTINUM: Cardiac silhouette normal in size. Mediastinal and hilar contours appear normal. LINES/TUBES: None. BONES: Chronic fracture of the right distal clavicle. Status post left distal clavicle resection. IMPRESSION: No acute pulmonary process. THIS IS AN ELECTRONICALLY VERIFIED FINAL REPORT 04/12/2025 2:45 PM - Electronically signed by Vidal Ibarra M.D. MM: MM Report ID: [id number] Reading Location: [id number] Procedure Note Vidal Ibarra MD - 04/12/2025 EXAM DESCRIPTION: XR CHEST 1 VIEW REASON FOR STUDY: seizure TECHNIQUE: 1 radiographic view(s) of the chest. COMPARISON: 03/01/2025 FINDINGS: LUNGS: No focal opacity, pleural effusion, or pneumothorax. HEART/MEDIASTINUM: Cardiac silhouette normal in size. Mediastinal andhilar contours appear normal. LINES/TUBES: None. BONES: Chronic fracture of the right distal clavicle. Status post left distal clavicle resection. IMPRESSION: No acute pulmonary process. THIS IS AN ELECTRONICALLY VERIFIED FINAL REPORT 04/12/2025 2:45 PM - Electronically signed by Vidal Ibarra M.D. MM: MM Report ID: [id number] Reading Location: [id number] Rupa RIGGINS IMG XR PROCEDURES Final R esult * Levetiracetam level (04/12/2025 2:26 PM CDT) Levetiracetam (Keppra) 35.4 10.0 - 40.0 mcg/mL [place] ref Lab Comment: ADDITIONAL INFORMATION This test was developed and its performance characteristics determined by [facility] in a manner consistent with CLIA requirements. This test has not been cleared or approved by the U.S. Food and Drug Administration. Test Performed by: [facility] - [address] [address] Retail Director: Salvatore Larson Ph.D.; CLIA# [id number] Blood 04/12/2025 2:26 PM CDT 04/12/2025 2:29 PM CDT Rupa RIGGINS LAB BLOOD ORDERABLES Aracelis l Result DARINEL RICHTER ([place]) 1 [facility] Department [place] [address] Her ref Lab * (ABNORMAL) eGFR (04/12/2025 2:09 PM CDT) Pathologist [facility] eGFR 48(L) >=60 mL/min/1. 73 m2 Comment: Interpretive Data [...] interpretive data was last reviewed 2021. Blood 04/12/2025 2:09 PM CDT 04/12/2025 2:14 PM CDT us Rupa RIGGINS LAB BLOOD ORDERABLES Aracelis l Result DARINEL MCDERMOTT) 1 [facility] [place] [address] * (ABNORMAL) Differential, auto (04/12/2025 2:09 PM CDT) Neutrophil abs 5.73 1.50 - 6.50 K/cumm Imm gran abs 0.03 0.00 - 0.10 K/cumm [facility] ([place]) Lymphocyte abs 4.18(H) 0.80 - 3.30 K/cumm [facility] ([place]) Monocyte abs 0.56 0.20 - 0.80 K/cumm [facility] ([place]) Eosinophil abs 0.67(H) 0.00 - 0.50 K/cumm [facility] ([place]) Basophil abs 0.10 0.00 - 0.10 K/cumm [facility] ([place]) Neutrophil pct 50.8 % [facility] ([place]) Comment: Interpretive [...] was last revised on 2018. Lymphocyte pct 37.1 % [facility] ([place]) Comment: Interpretive Data Percent cell count reference ranges are not reported, since discordance with absolute values may lead to misinterpretation of CBC data. Current Interpretive Data was last revised on 2018. Monocyte pct 5.0 % [facility] ([place]) Comment: Interpretive Data Percent cell count reference ranges are not reported, since discordance with absolute values may lead to misinterpretation of CBC data. Current Interpretive Data was last revised on 2018. Eosinophil pct 5.9 % [facility] ([place]) Comment: Interpretive Data Percent cell count reference ranges are not reported, since discordance with absolute values may lead to misinterpretation of CBC data. Current Interpretive Data was last revised on 2018. Basophil pct 0.9 % [facility] ([place]) Comment: Interpretive Data Percent cell count reference ranges are not reported, since discordance with absolute values may lead to misinterpretation of CBC data. Current Interpretive Data was last revised on 2018. Blood 04/12/2025 2:09 PM CDT 04/12/2025 2:14 PM CDT us Rupa RIGGINS LAB BLOOD ORDERABLES Aracelis l Result DARINEL NEELAM ([place]) 1 [facility] Department [place] [address] * (ABNORMAL) CBC with auto differential (04/12/2025 2:09 PM CDT) WBC 11.27(H) 3.80 - 9.90 K/cumm Hgb 11.2(L) 11.9 - 15.5 g/dL [facility] ([place]) Hct 34.6(L) 35.6 - 45.5 % [facility] ([place]) Plt 300 150 - 400 K/cumm [facility] ([place]) MPV 9.7 9.1 - 12.3 fL [facility] ([place]) RBC 4.02 3.90 - 5.20 M/cumm [facility] ([place]) MCV 86.1 81.3 - 96.4 fL [facility] ([place]) MCH 27.9 27.1 - 33.3 pg [facility] ([place]) MCHC 32.4 32.3 - 35.7 g/dL [facility] ([place]) RDW CV 14.6 11.1 - 14.9 % [facility] ([place]) RDW SD 44.3 35.7 - 48.1 fL [facility] ([place]) NRBC abs 0.00 0.00 - 0.01 K/cumm [facility] ([place]) Blood 04/12/2025 2:09 PM CDT 04/12/2025 2:14 PM CDT us Rupa RIGGINS LAB BLOOD ORDERABLES Aracelis l Result [facility]) 1 [facility] [place] [address] * (ABNORMAL) Comprehensive metabolic panel (04/12/2025 2:09 PM CDT) Sodium 138 135 - 145 mmol/L Potassium, pl 5.8(H) 3.3 - 4.9 mmol/L [facility] ([place]) Comment:Moderately Hemolyzed Specimen. Results may be affected. Chloride 103 97 - 110 mmol/L [facility] ([place]) CO2 21(L) 22 - 32 mmol/L [facility] ([place]) Anion gap 15 2 - 15 mmol/L [facility] ([place]) BUN 22 6 - 25 mg/dL [facility] ([place]) Creatinine 1.22(H) 0.60 - 1.10 mg/dL [facility] ([place]) Glucose 147 70 - 199 mg/dL [facility] ([place]) [...] interpretive data was last revised 2022. Calcium 9.9 8.5 - 10.3 mg/dL [facility] ([place]) Bilirubin, total 0.4 0.1 - 1.2 mg/dL [facility] ([place]) Protein, pl 7.3 6.5 - 8.5 g/dL [facility] ([place]) Albumin 4.0 3.5 - 5.0 g/dL [facility] ([place]) Alk phos 124 40 - 130 Units/L [facility] ([place]) ALT 20 7 - 45 Units/L [facility] ([place]) Comment: Hemolysis present. Results may be affected. Moderately Hemolyzed Specimen AST 33 10 - 45 Units/L [facility] ([place]) Comment: Hemolysis present. Results may be affected. Moderately Hemolyzed Specimen Blood 04/12/2025 2:09 PM CDT 04/12/2025 2:14 PM CDT us Rupa RIGGINS LAB BLOOD ORDERABLES Aracelis alvarenga Result DARINEL RICHTER ([place]) 1 [facility] [place] [address] * (ABNORMAL) Thyroid Function [place] (04/12/2025 2:08 PM CDT) TSH 10.72(H) 0.30 - 4.20 mcIUnit/mL Blood 04/12/2025 2:08 PM CDT 04/12/2025 3:03 PM CDT Rupa RIGGINS LAB BLOOD ORDERABLES Aracelis l Result Performing Organization Address City/[facility]/ZIP Co de Phone Number DARINEL RICHTER ([place]) 1 [facility] [email or web address] [address] * T4, free (04/12/2025 2:08 PM CDT) Pathologist [facility] Free T4 1.13 0.90 - 1.70 ng/dL Blood 04/12/2025 2:08 PM CDT 04/12/2025 3:03 PM CDT Narrative DARINEL RICHTER ([place]) - 04/12/2025 3:47 PM CDT This test was reflexed from a TSH result. Rupa RIGGINS LAB BLOOD ORDERABLES Aracelis l Result Performing Organization Address [facility] Co de Phone Number DARINEL RICHTER (KIRKLIN) 1 [facility] [email or web address] [address] * ECG 12 lead (04/12/2025 2:07 PM CDT) 04/12/2025 2:07 PM CDT Narrative [facility] - 04/14/2025 7:23 AM CDT Vent Rate: 71 bpm RR Interval: [address] Interval: 0 msec QRS Duration: 86 msec QT Interval: 372 msec QTC Interval: 394 msec P-R-T [place]: [id number] - 55 - 61 degrees IMPRESSION: SUPRAVENTRICULAR RHYTHM Compared to prior EKG, P waves are not well seen now. Electronically Signed By: Dr Javier Hartman Rupa RIGGINS ECG ORDERABLES Final Res ult Performing Organization Address City/[facility]/ZIP Co de Phone Number [facility] * XR Clavicle Bilateral Complete (04/02/2025 12:23 PM CDT) Anatomical Region Laterality Modality Clavicle, Chest Bilateral Computed Radiogr aphy 04/02/2025 12:5 8 PM CDT Impressions 04/02/2025 12:58 PM CDT 1. Healing mildly displaced right distal 3rd clavicular fracture with findings of right AC separation injury. Electronically signed by: Hever Gaitan M.D. Narrative 04/02/2025 12:58 PM CDT EXAMINATION: XR CLAVICLE BILATERAL COMPLETE HISTORY: fracture FINDINGS: 2 view examination of the bilateral clavicles is read with comparison to 01/09/2025. There is a healing mildly displaced right distal 3rd clavicular fracture with increasing immature callus formation. There is unchanged widening of the right acromioclavicular joint with mild superior subluxation of the right distal clavicle and mild coracoclavicular interval widening. Unchanged truncated left distal clavicle in keeping with either distal clavicular excision or posttraumatic osteolysis. No left clavicular fracture. Procedure Note Hever Chavira MD - 04/02/2025 EXAMINATION: XR CLAVICLE BILATERAL COMPLETE HISTORY: fracture FINDINGS: 2 view examination of the bilateral clavicles is read with comparison to 01/09/2025. There is a healing mildly displaced right distal 3rd clavicular fracture with increasing immature callus formation. There is unchanged widening of the right acromioclavicular joint with mild superior subluxation of the right distal clavicle and mild coracoclavicular interval widening. Unchanged truncated left distal clavicle in keeping with either distal clavicular excision or posttraumatic osteolysis. No left clavicular fracture. IMPRESSION: 1. Healing mildly displaced right distal 3rd clavicular fracture with findings of right AC separation injury. Electronically signed by: Hever Gaitan M.D. us Mable Campos MD IMG XR PROCEDURES Final Re sult * (ABNORMAL) Lipid panel (01/20/2025 12:28 PM [...] revised on 2018. Triglycerides 319(H) <=149 mg/dL [facility] Comment: Interpretive Data Ages < or [...] revised on 2018. HDL 25(L) >=40 mg/dL [facility] Comment: Interpretive Data Ages < or [...] on 2018. LDL, calculated 75 <=129 mg/dL [facility] Comment: Interpretive Data Ages < or [...] NCEP Expert Panel. Circulation 2004;110:227 3. Isaiah Cohw et al. JORDAN Cardiol. 2020 March 13;5(5):540-548. doi: 10.1001/jamacardio.2020.0013 Current Interpretive Data was last revised on 2024. Non-HDL Cholesterol 127 mg/dL [facility] Comment: Interpretive Data Ages < or = [...] last revised on 2018. Chol/HDL ratio 6 [facility] Blood 01/20/2025 12:2 8 PM CDT 01/20/2025 12:36 PM CDT Bernardo Lorenz MD LAB BLOOD ORDERABLES Final Resul t [facility] Department [place] [address] from Last 3 Months or Most Recently Relevant to Health Maintenance Additional Health Concerns Infection Onset Date Last Indicated C. difficile 2025 2025 Insurance [employer] SENIOR SUPPLEMENT MEDICARE MEDICARE FORMERLY [facility] SENIOR SUPPLEMENT MEDICARE [employer] SENIOR SUPPLEMENT Advance Directives For more information, please contact: [phone] Documents on File Type Date Recorded Patient Architect Intern Expl anation ADVANCE DIRECTIVE 06/02/2025 11:26 AM POLS T - Phys Order for PT Preferences * Full Code (Latest Code Status on File) Date Activated Date Inactivated Comments 06/02/2025 5:22 AM 06/11/2025 12:44 AM * Full Code Date Activated Date Inactivated Comments 05/24/2025 7:36 PM 05/31/2025 7:53 PM * Full Code Date Activated Date Inactivated Comments 05/20/2025 3:31 AM 05/21/2025 10:11 PM * Full Code Date Activated Date Inactivated Comments 05/13/2025 11:51 PM 05/19/2025 6:42 PM * Full Code Date Activated Date Inactivated Comments 04/13/2025 2:19 AM 04/13/2025 6:59 PM Healthcare Agents on File Name Relationship Healthcare Agent Owenks p Communication Terrance England Alternat e Health Care Agent Care Teams Voice Systems Engineer Relationship Specialty Start Date End Date Tatum Rice DO [facility] - General 05/30/22
--- OUTSIDE RECORDS SUMMARY | 2025-06-15 14:16 | XMS_ITS ---
Author Organization [facility] Address [address] [place] [address] Care Team Providers Care Master Control Engineer Name Role Phone Tatum Rice DO Primary Care Provider Unavaila Austyn Lopez Unavailable [phone] REASON FOR VISIT Missed Appt Encounters Encounter Location Date Provider Diagnosis [facility] [address] [place] [address] 01/21/2025 Ausytn Martinez PLAN OF TREATMENT No Information
--- OUTSIDE RECORDS SUMMARY | 2025-06-15 14:16 | XMS_ITS ---
Author Organization [facility] Address [address] [place] [address] Care Team Providers Care Hand Surgeon Name Role Phone Tatum Rice Primary Care [...] 01/13/2025 Assessment & Plan (01/13/2025 10:52 AM BASS STRING WINDER): - 01/07 Patient underwent L MUSIC ORCHESTRATOR/Stenting of the proximal PT, Dr. Mark Oscar [facility]iology - On ASA, prescribed plavix postprocedurally - next procedure scheduled for 02/11 and carotid US scheduled. - 01/10 Plavix resumed SDH (subdural hematoma) 01/09/2025 Assessment & Plan (01/14/2025 11:58 AM BASS STRING WINDER): SDH with Left Midline shift 3mm - [...] been stable. Head CTs have been reassuring. / Neuro exams liberalized, Transferred to the floor. - Outpatient follow up tasked with NSGY in 4 weeks with a repeat Head CT Depression 10/05/2022 Assessment & Plan (01/13/2025 10:58 AM BASS STRING WINDER): - Continue home cymbalta 60 mg daily Hypothyroidism 08/24/2022 Assessment & Plan (01/10/2025 10:16 AM BASS STRING WINDER): - Continue Levothyroxine 50mcg daily Osteopenia 06/01/2022 Seizures 03/08/2022 Assessment & Plan (01/13/2025 10:43 AM BASS STRING WINDER): Chronic Home Keppra 500 mg bid Iron [...] 10/13/2015 Assessment & Plan (01/14/2025 12:05 PM BASS STRING WINDER): Home med - Metoprolol 25 mg BID, carvedilol 12.5 BID, atorvastatin 80 mg daily - Continue Coreg 12.5mg BID Hyperlipidemia 10/13/2015 Assessment & Plan (01/10/2025 10:16 AM BASS STRING WINDER): - Continue Atorvastatin 80mg HS Anxiety disorder 02/11/2013 Assessment & Plan (01/13/2025 10:34 AM BASS STRING WINDER): - Continue Duloxetine 60mg daily 01/13 resume Clonazepam 0.5mg BID for anxiety Obstructive sleep apnea 02/11/2013 Type 2 diabetes mellitus without complications 0 02/11/2013 Chronic myeloid leukemia, BC R/ABL-positive, not having achieved remission 04/18/2012 Assessment & Plan (01/13/2025 10:57 AM BASS STRING WINDER): #CML - On asciminib Current Treatment and Therapy Plans No current plan information found. Past Treatment and Therapy Plans No past plan information found. Lifetime Dose Tracking * Chemical Lifetime Dose Automatic Entry Manual Entr y Fluoro Time 22.7 minutes 22.7 minutes 0 minutes Air kerma at the reference point (Ka,r) 637.6 mGy 6 37.6 mGy 0 mGy DLP 9,292 mGycm 9,292 mGycm 0 mGycm Resolved Problems Problem Noted Date Diagnosed Date Resolved Date Fracture of right clavicle 01/10/2025 0 04/13/2025 Assessment & Plan (01/13/2025 10:41 AM BASS STRING WINDER): - b/l clavicle Xrays: shortening of left [...] on 02/[address] Campos located at [facility] Acute traumatic pain 01/10/2025 025 Assessment & Plan (01/13/2025 10:30 AM BASS STRING WINDER): - Tylenol 650mg q6h - Gabapentin 300mg BID - Lidocaine patch - Robaxin 500mg TID - Oxycodone 5mg q4h PRN Syncope and collapse 05/23/2023 025 Knee pain, left 10/05/2022 04/13/2025 Left hand fracture, closed, initial encounter 05/30/20 22 04/13/2025 Abrasion of left elbow 05/30/202204/13 Sprain of left knee 05/30/2022 04/13/20 25
--- OUTSIDE RECORDS SUMMARY | 2025-06-15 14:16 | XMS_ITS | Encounter Summary ---
Author Organization [facility] Address [address] [place] [address] Care Team Providers Care Dietary Tech Name Role Phone Tatum Rice DO Primary Care Provider [phone] Jazmín San MD Unavailable Tatum Rice DO Unavailable [phone] Amie Hickman MD Primary Care Provider [phone] Gautam Carlson MD Unavailable [phone] Encounter Details Date Type Department Care Team (Late st Contact Info) Description 10/19/2022 Telephone [facility] End[facility]ology, Diabetes and Metabolism [address] [place] [phone] Perry Leal MD [address] [place] [address] [place] [address] Social History Tobacco Use Types Packs/Day Years Used Date Smoking Tobacco: Never Smokeless Tobacco: Never Alcohol Use Standard Drinks/Week Comments No 0 (1 standard drink = 0.6 oz pur e alcohol) PHQ-2 Answer Date Recorded PHQ2 TOTAL SCORE 0 04/28/2022 Comments No Sex and Gender Information Value Date Recorded Sex Assigned at Not on file Legal Sex Female 2:03 PM STEEPING PRESS TENDER Gender Identity Not on file Sexual Orientation Not on file documented as of this encounter Miscellaneous Notes * Telephone Encounter - Saba Galdamezni - 10/19/2022 3:23 PM CST Pt called and requests lab orders be sent to [facility] ([facility]) so she can get them done prior to the appt for 10/26/22 Ill call her when order is placed to let her know. She will be checking her MyChart if you are able to message her directly. PING PRESS TENDER PING PRESS TENDER documented in this encounter Plan of Treatment Not on file documented as of this encounter Goals Goal [...] on filedocumented in this encounter Care Teams Dietary Tech Relationship Specialty Start Date End Date Tatum Rice DO [address] [facility] 2[address] DIV OF [facility] [place] [phone] PCP - General 01/06/21 12/12/23 Amie Hickman MD [address] [facility] DIV OF INT MED [address] [place] [phone] PCP - General Internal Medicine 08/27/24 Jazmín San MD [address] [facility] [place] [phone] Resident - PCP Student Resident 06/18/21 08/26/24 Tatum Rice DO [address] [facility] [address] DIV OF [facility] [place] [address] Physician Internal Medicine 12/28/23 Gautam Carlson MD [address] [place] [address] [address] [place] [address] Hematology and Oncology 11/27/24 documented as of this encounter
--- OUTSIDE RECORDS SUMMARY | 2025-06-15 14:16 | XMS_ITS | Patient Health Record ---
Author Organization [facility] Address [address] [place] [address] Care Team Providers Care Aged Or Disabled Carer Name Role Phone Tatum Rice DO Primary Care Provider Austyn Gill Unavailable [phone] [place] Akbar Unavailable [phone] ALLERGIES Allergen (clinical drug ingredient) Drug/Non Drug Allergy documented on EMR Reaction Allergy Type Onset Date Status codeine Codeine Unknown Drug Allergy Active REASON FOR REFERRAL Reason Please evaluate decr eased pedal pulse-left Diagnosis 1 Primary osteoarthrit is of left knee (M17.12) Diagnosis 2 Decreased pedal puls es (R09.89) Referral Organization 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 [address], [place] [address] 12/19/2024 [facility] [address], [place] [address] 12/23/2024 [facility] [address], [place] [address] 12/16/2024 Austyn Martinez Primary osteoarthrit is of left knee M17.12 ; Right rotator cuff tendonitis M75.81 ; Arthritis of right acromioclavicular joint M19.011 ; Knee pain, left M25.562 and Pain in right shoulder M25.511 [facility] [address], [place] [address] 12/19/2024 [place] Akbar Primary osteoarthrit is of left knee M17.12 [facility] [address], [place] [address] 01/13/2025 [facility] [address], [place] [address] 02/12/[address] [facility] [address], [place] [address] 12/30/2024 [facility] [address], [place] [address] 12/30/2024 [facility] [address] [place] [address] 01/21/2025 Austyn Martinez ASSESSMENTS Encounter Date Diagnosis [...] the plan. This note was completed using import2 software for voice and speech recognition. Grammatical [...] L, AP bilat, Mcdonald bilat, Lat and [place] of affected 12/16/2024 X ray : Shoulder 4 views L, AP, Grashey, Outlet, Axillary 12/16/2024 Insurance Providers Payer Name Payer Address Payer Phone Subscriber Number Group Number Insured Name Patient Relationship to Insured Coverage Start Date Coverage End Date [place] [address] [address] [place] [address] [id number] Mariposa Ramirez Self - patient is the insured A[employer] [facility] [address] [address] [place] [address] [id number] PLAN G Mariposa Ramirez Self - patient [...]
--- OUTSIDE RECORDS SUMMARY | 2025-06-15 14:16 | XMS_ITS ---
Author Organization [facility], Address [address] [place] [address] Care Team Providers Care Lawn Mower Sharpener Name Role Phone Tatum Rice DO Primary Care Provider Unavaila Austyn Lopez Unavailable [phone] [place] Akbar Unavailable [phone] REASON FOR VISIT Pre-op Progress Check-Left TKA 03/11/2025 Encounters Encounter Location Date Provider Diagnosis [facility] [address] [place] [address] 01/13/2025 [place] Akbar PLAN OF TREATMENT No Information
--- OUTSIDE RECORDS SUMMARY | 2025-06-15 14:16 | XMS_ITS | Encounter Summary ---
Author Organization [facility] Address [address] [place] [address] Care Team Providers Care Nursing Agency Manager Name Role Phone Tatum Rice Charline DO Unavailable [phone] Amie Hickman MD Primary Care Provider [phone] Gautam Carlson MD Unavailable [phone] Reason for Visit * Reason Onset Date Comments Concerns 11/11/2024 Encounter Details Date Type Department Care Team (Late st Contact Info) Description 11/11/2024 Telephone [facility] - Centralized Scheduling [address] [place] [address] Rosy Cabrera APRN-CRTTS [address] [place] [address] Concerns Social History Tobacco Use [...] on file Legal Sex Female 2:03 PM ASSISTED LIVING ASSISTANT Gender Identity Not on file Sexual Orientation Not on file documented as of this encounter Miscellaneous Notes * Telephone Encounter - Lexie Shin - 11/11/2024 1:56 PM CST Patient wanted to inform the clinic that she has has a seizure on 11/05 and went to [facility]. She does want a phone call to clarify when she is able to drive again. She was told she shouldn't drive for at least 6 months. STED LIVING ASSISTANT documented in this encounter Plan of Treatment [...] on filedocumented in this encounter Care Teams Nursing Agency Manager Relationship Specialty Start Date End Date Amie Hickman MD [address] [facility] DIV OF [facility] MED [address] [place] [phone] PCP - General Internal Medicine 08/27/24 Tatum Rice DO [address] DIV OF [facility] [place] [address] Physician Internal Medicine 12/28/23 Gautam Carlson MD [address] [place] [address] Rd [address] [place] [address] Hematology and Oncology 11/27/24 documented as of this encounter
--- OUTSIDE RECORDS SUMMARY | 2025-06-15 14:16 | XMS_ITS | Encounter Summary ---
Author Organization [facility] Address [address] [place] [address] Care Team Providers Care Dry Ice Maker Name Role Phone Tatum Rice DO Primary Care Provider Jazmín San MD Unavailable Tatum Rice DO Unavailable Amie Hickman MD Primary Care Provider [phone] Gautam Carlson MD Unavailable [phone] Encounter Details Date Type Department Care Team (Late st Contact Info) Description 11/14/2021 Telephone [facility] General Internal Medicine [address] [place] [address], [place] [phone] Tatum Rice DO [address] [place] [address] OF [facility] [place] [place] [phone] Social History Tobacco Use Types Packs/Day Years Used Date Smoking Tobacco: Never Smokeless Tobacco: Never Alcohol Use Standard Drinks/Week Comments No 0 (1 standard drink = 0.6 oz pur e alcohol) Comments No Sex and Gender Information Value Date Recorded Sex Assigned at Not on file Legal Sex Female 2:03 PM FOOD AND BEVERAGE ASSISTANT Gender Identity Not on file Sexual Orientation Not on file COVID-19 Exposure Response Date Recorded In the last month, have you been in contact with someone who was confirmed or suspected to have Coronavirus / COVID-19? No / Unsure 10/21/2021 2:50 PM FOOD AND BEVERAGE ASSISTANT documented as of this encounter Miscellaneous Notes * Telephone Encounter - Tatum Rice DO - 11/14/2021 2:20 PM CST Received call from patient via humid system operator. Test results back positive for COVID today. No SOB or fevers. Feels like head cold. Symptoms started ~ 5 days ago. AND BEVERAGE ASSISTANT documented in this encounter Plan of [...] on filedocumented in this encounter Care Teams Dry Ice Maker Relationship Specialty Start Date End Date Tatum Rice DO [address] [facility] 2L DIV OF [facility] [place] [phone] PCP - General 01/06/21 12/12/23 Amie Hickman MD [address] [facility] DIV OF INT MED [address] [place] [phone] PCP - General Internal Medicine 08/27/24 Jazmín San MD [address] [facility] [place] [place] [phone] Resident - PCP Student Resident 06/18/21 08/26/24 Tatum Rice DO [address] [facility] 2L DIV OF [facility] [address] Physician Internal Medicine 12/28/23 Gautam Carlson MD [address] [place] [address] [place], [place] [phone] Hematology and Oncology 11/27/24 documented as of this encounter
--- OUTSIDE RECORDS SUMMARY | 2025-06-15 14:16 | XMS_ITS | Referral Summary ---
Author Organization [facility] Address 1 [place] [address] Care Team Providers Care Activated Sludge Attendant Name Role Phone Tatum Rice Primary Care Provider Encounters Date Type Department Care Team Description 06/10/2025 8:48 PM CDT - 06/10/2025 11:59 PM CDT Hospital Encounter [facility] Discharge Disposition: Discharge to home or self care 06/01/2025 2:36 PM CDT - 06/10/2025 8:44 PM CDT Hospital Encounter [facility] 1 [place] [address] Liat Potts MD Sargsyan, Narine, MD Fasick, Victoria Rose, DO Kim, Eileen H., MD Seizure-like activity (HCC) (Primary Dx); Pneumonia of both lower lobes due to infectious organism; Cerebrovascular accident (CVA), unspecified mechanism (HCC); Non-STEMI (non-ST elevated myocardial infarction) (HCC) Discharge Disposition: Discharge to an Rehab facility 06/06/2025 Results Follow-Up [facility] Gastroenterology at [address] [place] [address] Bobbi Pitt MD Hemochromatosis HFE Gene Analysis 06/03/2025 Telephone [facility] Gastroenterology at [address] [place] [address] Sara Campos DARSHAN 06/02/2025 Telephone [facility] Gastroenterology at [place] [address] [facility] [address] [place] [address] Fátima Ramírez 06/01/2025 2:31 PM CDT - 06/01/2025 11:59 PM CDT Hospital Encounter [facility] Emergency, Room R Discharge Disposition: Discharge to home or self care 05/24/2025 1:06 PM CDT - 05/31/2025 3:48 PM CDT Hospital Encounter [address] [address] Doni Briceño MD Sargsyan, Narine, MD Fasick, Victoria Rose, DO Sepsis without acute organ dysfunction, due to unspecified organism (HCC) (Primary Dx); Moderate Alzheimer's dementia with agitation, unspecified timing of dementia onset (HCC); Apraxia, post-stroke; Acute proctitis; Stercoral colitis; Constipation, unspecified constipation type; Elevated liver enzymes; Normocytic anemia; High serum transferrin saturation Discharge Disposition: Discharge to SNF 05/24/2025 4:26 PM CDT - 05/24/2025 11:59 PM CDT Hospital Encounter [facility] Emergency, Room R Discharge Disposition: Discharge to home or self care 05/19/2025 11:33 PM CDT - 05/21/2025 6:10 PM CDT Hospital Encounter [address] [address] Liat Potts MD Petters, Ekanga Sunday, MD Fasick, Victoria Rose, DO Confusion (Primary Dx); Expressive aphasia; Polypharmacy; Difficulty with speech [R47.9] Discharge Disposition: Discharge to SNF 05/19/2025 11:18 PM CDT - 05/19/2025 11:59 PM CDT Hospital Encounter [facility] Emergency, Room R Discharge Disposition: Discharge to home or self care 05/13/2025 3:29 PM CDT - 05/19/2025 2:36 PM CDT Hospital Encounter [address] [address] Doni Briceño MD Huynh, Kiet T., MD [...] - 05/13/2025 11:59 PM CDT Hospital Encounter [facility] Emergency, Room R Discharge Disposition: Discharge to home or self care 05/09/2025 3:26 PM CDT - 05/09/2025 11:59 PM CDT Hospital Encounter [facility] Emergency, Room R Discharge Disposition: Discharge to home or self care 05/09/2025 3:58 PM CDT - 05/09/2025 6:51 PM CDT Emergency [facility] Emergency Department 1 [place] [address] Doni Briceño MD Vasovagal syncopes (Primary Dx); Anxiety about health; Injury of head, initial encounter Discharge Disposition: Discharge to home or self care 05/04/2025 4:21 PM CDT - 05/04/2025 11:59 PM CDT Hospital Encounter [facility] Emergency, Room R Discharge Disposition: Discharge to home or self care 05/04/2025 4:37 PM CDT - 05/04/2025 7:27 PM CDT Emergency [facility] Emergency Department 1 [place] [address] Neil Courtney MD Anxiety reaction (Primary Dx); Speech disturbance, unspecified type Discharge Disposition: Discharge to home or self care 04/18/2025 1:45 PM CDT Office Visit [facility] Neurosurgery [facility] Floor 1, [address] [place] [address] Bernardo Lorenz MD Subdural hematoma (HCC) (Primary Dx) 04/17/2025 [facility] Post Discharge Follow up phone call [facility] [address] [place] [phone] Astrid Fox RN 04/12/2025 2:01 PM CDT - 04/13/2025 2:59 PM CDT Hospital Encounter [facility] [address] [place] [address] Liat Potts MD Fasick, Victoria Rose, DO Davis, Cedric Emden II, MD Breakthrough seizure (HCC) (Primary Dx); History of subdural hematoma; Seizure disorder, complex partial (HCC) [G40.209] Discharge Disposition: Discharge to home or self care 04/02/2025 12:07 PM CDT - 04/02/2025 11:59 PM CDT Hospital Encounter [facility] [address] [place] [address] Discharge Disposition: Discharge to home or self care 04/02/2025 12:30 PM CDT Office Visit [facility] Orthopaedic Surgery [address] [place] [address] Advanced Medicine 6th [place] [address] [place] [address] Mable Campos MD Traumatic closed fracture of distal clavicle with minimal displacement, right, initial encounter (Primary Dx) from Last 3 Months Allergies Active Allergy [...] (1,000 mcg total) by mouth daily Active rrrbfmjgxrw-wty-w agnesium-vitC capsule Take 1 capsule by mouth [...] 1 tablet (75 mcg total) by mouth economic development coordinator before breakfast 90 tablet 11 Active gabapentin [...] mg total) by mouth nightly 3 tablet 2024 Discontinued(S top Taking at Discharge) clonazePAM (KlonoPIN) 0.5 mg tablet Take 1 tablet (0.5 mg total) by mouth 2 (two) times a day 6 tablet 025 2024 Discontinued(S top Taking at Discharge) amoxicillin-clavu lanate (AUGMENTIN) 875-125 mg per tablet Take 1 tablet (875 mg of amoxicillin total) by mouth 2 (two) times a day for 7 days 025 2024 Discontinued(S top Taking at Discharge) fidaxomicin [...] 01/13/2025 Assessment & Plan (01/13/2025 10:52 AM HEALTH MANAGER): - 01/07 Patient underwent L POWER CRANE OPERATOR/Stenting of the proximal PT, Dr. Mark [facility] - On ASA, prescribed plavix postprocedurally - next procedure scheduled for 02/11 and carotid US scheduled. - 01/10 Plavix resumed SDH (subdural hematoma) 01/09/2025 Assessment & Plan (01/14/2025 11:58 AM HEALTH MANAGER): SDH with Left Midline shift 3mm - [...] 10/05/2022 Assessment & Plan (01/13/2025 10:58 AM HEALTH MANAGER): - Continue home cymbalta 60 mg daily Hypothyroidism 08/24/2022 Assessment & Plan (01/10/2025 10:16 AM HEALTH MANAGER): - Continue Levothyroxine 50mcg daily Osteopenia 06/01/2022 Seizures 03/08/2022 Assessment & Plan (01/13/2025 10:43 AM HEALTH MANAGER): Chronic Home Keppra 500 mg bid Iron [...] 10/13/2015 Assessment & Plan (01/14/2025 12:05 PM HEALTH MANAGER): Home med - Metoprolol 25 mg BID, carvedilol 12.5 BID, atorvastatin 80 mg daily - Continue Coreg 12.5mg BID Hyperlipidemia 10/13/2015 Assessment & Plan (01/10/2025 10:16 AM HEALTH MANAGER): - Continue Atorvastatin 80mg HS Anxiety disorder 02/11/2013 Assessment & Plan (01/13/2025 10:34 AM HEALTH MANAGER): - Continue Duloxetine 60mg daily 01/13 resume Clonazepam 0.5mg BID for anxiety Obstructive sleep apnea 02/11/2013 Type 2 diabetes mellitus without complications 0 02/11/2013 Chronic myeloid leukemia, BC R/ABL-positive, not having achieved remission 04/18/2012 Assessment & Plan (01/13/2025 10:57 AM HEALTH MANAGER): #CML - On asciminib Resolved Problems Problem Noted Date Diagnosed Date Resolved Date Fracture of right clavicle 01/10/2025 0 04/13/2025 Assessment & Plan (01/13/2025 10:41 AM HEALTH MANAGER): - b/l clavicle Xrays: shortening of left [...] on 02/[address] Campos located at [facility] Acute traumatic pain 01/10/2025 025 Assessment & Plan (01/13/2025 10:30 AM HEALTH MANAGER): - Tylenol 650mg q6h - Gabapentin 300mg BID - Lidocaine patch - Robaxin 500mg TID - Oxycodone 5mg q4h PRN Syncope and collapse 05/23/2023 025 Knee pain, left 10/05/2022 04/13/2025 Left hand fracture, closed, initial encounter 05/30/20 22 04/13/2025 Abrasion of left elbow 05/30/202204/13 Sprain of left knee 05/30/2022 04/13/20 25 Social History Tobacco Use Types Packs/Day Years Used Date Smoking Tobacco: Never Smokeless Tobacco: Never Tobacco Cessation:Counseling Given: Not Answered Alcohol Use Standard Drinks/Week Comments Not Currently 0 (1 standard drink = 0.6 oz pur e alcohol) [facility] Utilities Answer Date Recorded In the past 12 months has [employer], gas, oil, or water [employer] threatened to shut off services in your [...] week 06/02/2025 How often do you attend [facility] or scientology services? Never 06/02/2025 Do you belong to [...] place to sleep or slept in a usp (including now)? No 06/20/2023 PHQ-9 Answer Date [...] any time in the past 12 m ont, were you homeless or living in a usp (including now)? No 06/02/2025 Personal Safety Answer [...] on file Legal Sex Female 7:59 PM HEALTH MANAGER Gender Identity Not on file Sexual Orientation [...] 06/02/2025 11:22 PM CDT Plan of Treatment Not on file [...] DEVICE Routine 06/01/2025 8 :46 PM CDT OK CRITICAL CARE ILL/INJURED PATIENT INIT 30-74 MIN [...] AM CDT POCT GLUCOSE DEVICE Routine 05/28/2025 2:21 AM CDT POCT GLUCOSE DEVICE Routine 05/27/2025 [...] CDT CERULOPLASMIN Routine 05/27/2025 7:05 AM CDT [id number], TUMOR MARKER Routine 05/27/2025 7:05 AM CDT [id number] Routine 05/27/2025 7 :05 AM CDT SMOOTH [...] SODIUM LEVEL Timed 05/25/2025 12:12 AM CDT OK CRITICAL CARE ILL/INJURED PATIENT INIT 30-74 MIN [...] HIGH-SENSITIVITY 2-HOUR Timed 05/20/2025 2:12 AM CDT OK CRITICAL CARE ILL/INJURED PATIENT INIT 30-74 MIN [...] HIGH-SENSITIVITY 6-HOUR Timed 05/13/2025 9:56 PM CDT OK CRITICAL CARE ILL/INJURED PATIENT INIT 30-74 MIN [...] DEVICE Routine 05/13/2025 3 :31 PM CDT OK CRITICAL CARE ILL/INJURED PATIENT INIT 30-74 MIN [...] DEVICE Routine 04/13/2025 7 :41 AM CDT OK CRITICAL CARE ILL/INJURED PATIENT INIT 30-74 MIN [...] DE VICE Final Result Performing Organization Address [facility] Co de Phone Number [facility]) [address] [place] [address] * POCT glucose (06/10/2025 11:41 AM CDT) Glucose, POC 157 70 - 199 mg/dL Blood 06/10/2025 11:4 1 AM CDT 06/10/2025 11:41 AM CDT Beverly Goff DO LAB POCT ORDERABLES - DE VICE Final Result Performing Organization Address [facility] Co ak Phone Number [facility]) 1 [facility] [place] [address] * FL Modified Barium Swallow W Video [...] Jacob Montague D.O. PS: PS Report ID: [id number] Reading Location: [place] [address] Procedure Note Jacob Montague, - 06/10/2025 EXAM DESCRIPTION: FL MODIFIED BARIUM [...] Jacob Montague D.O. PS: PS Report ID: [id number] Reading Location: [id number] Beverly Goff DO IMG FLUOROSCOPY PROCEDUR ES Final Result * POCT glucose (06/10/2025 8:21 AM CDT) Glucose, POC 138 70 - 199 mg/dL Blood 06/10/2025 8:21 AM CDT 06/10/2025 8:21 AM CDT Beverly Goff DO LAB POCT ORDERABLES - DE VICE Final Result [facility] ([facility]) 1 [facility] [address] [place] [address] * eGFR (06/10/2025 7:13 AM CDT) eGFR 83 >=60 mL/min/1. 73 [...] BLOOD ORDERABLES Final Resu lt [facility] ([facility]) [address] [facility] [address] [place] [address] * (ABNORMAL) Differential, auto (06/10/2025 7:13 AM [...] MD LAB BLOOD ORDERABLES Final Resu lt [facility] ([place]) [address] [facility] [address] [place] [address] * (ABNORMAL) CBC with auto differential (06/10/2025 7:13 AM CDT) WBC 9.78 3.80 - 9.90 K/cumm Hgb 12.0 11.9 - 15.5 g/dL [facility] ([place]) Hct 37.0 35.6 - 45.5 % [facility] ([place]) Plt 406(H) 150 - 400 K/cumm [facility] ([place]) MPV 10.2 9.1 - 12.3 fL [facility] ([place]) RBC 4.33 3.90 - 5.20 M/cumm [facility] ([place]) MCV 85.5 81.3 - 96.4 fL [facility] ([place]) MCH 27.7 27.1 - 33.3 pg [facility] ([place]) MCHC 32.4 32.3 - 35.7 g/dL [facility] ([place]) RDW CV 14.5 11.1 - 14.9 % [facility] ([place]) RDW SD 44.5 35.7 - 48.1 fL [facility] ([place]) NRBC abs 0.00 0.00 - 0.01 K/cumm [facility] ([place]) Blood 06/10/2025 7:13 AM CDT 06/10/2025 7:30 AM CDT us Velia Crowe MD LAB BLOOD ORDERABLES Final Resu lt [facility] ([place]) [address] [facility] [place] [address] * Phosphorus (06/10/2025 7:13 AM CDT) Phosphorus, pl 3.4 2.3 - 4.5 mg/dL [facility] ([place]) Blood 06/10/2025 7:13 AM CDT 06/10/2025 7:30 AM CDT Velia Crowe MD LAB BLOOD ORDERABLES Final Resu lt [facility] ([place]) [address] [facility] [place] [address] * Magnesium (06/10/2025 7:13 AM CDT) Pathologist [facility] Magnesium 1.7 1.4 - 2.5 mg/dL [facility] ([place]) Blood 06/10/2025 7:13 AM CDT 06/10/2025 7:30 AM CDT Velia Crowe MD LAB BLOOD ORDERABLES Final Resu lt Performing Organization Address City/[facility]/ZIP Co de Phone Number [facility] ([place]) 1 [facility] [place] [address] * Basic metabolic panel (06/10/2025 7:13 AM CDT) Pathologist [facility] Sodium 135 135 - 145 mmol/L [facility] ([place]) Potassium, pl 4.8 3.3 - 4.9 mmol/L [facility] ([place]) Chloride 99 97 - 110 mmol/L [facility] ([place]) CO2 22 22 - 32 mmol/L [facility] ([place]) Anion gap 14 2 - 15 mmol/L [facility] ([place]) BUN 11 6 - 25 mg/dL [facility] ([place]) Creatinine 0.77 0.60 - 1.10 mg/dL [facility] ([place]) Glucose 181 70 - 199 mg/dL [facility] ([place]) Comment: Interpretive Data Fasting glucose >/= [...] 2022. Calcium 10.0 8.5 - 10.3 mg/dL [facility] ([place]) Blood 06/10/2025 7:13 AM CDT 06/10/2025 7:30 AM CDT Velia Crowe MD LAB BLOOD ORDERABLES Final Resu lt Performing Organization Address [facility] Co de Phone Number [facility] ([place]) 1 [facility] [place] [address] * POCT glucose (06/10/2025 2:18 AM CDT) Glucose, POC 151 70 - 199 mg/dL Blood 06/10/2025 2:18 AM CDT 06/10/2025 2:18 AM CDT Velia Crowe MD LAB POCT ORDERABLES - DEVICE Fi nal Result Performing Organization Address [facility] Co de Phone Number [facility]EL [facility] ([place]) 1 [facility] [place] [address] * POCT glucose (06/09/2025 4:59 PM CDT) Glucose, POC 187 70 - 199 mg/dL Blood 06/09/2025 4:59 PM CDT 06/09/2025 4:59 PM CDT Velia Crowe MD LAB POCT ORDERABLES - DEVICE Fi nal Result Performing Organization Address [facility] Co de Phone Number [facility] ([place]) 1 [facility] [place] [address] * POCT glucose (06/09/2025 11:33 AM CDT) Glucose, POC 191 70 - 199 mg/dL Blood 06/09/2025 11:3 3 AM CDT 06/09/2025 11:33 AM CDT Velia Crowe MD LAB POCT ORDERABLES - DEVICE Fi nal Result [facility] ([place]) 1 [facility] [place] [address] * POCT glucose (06/09/2025 7:46 AM CDT) Glucose, POC 141 70 - 199 mg/dL Blood 06/09/2025 7:46 AM CDT 06/09/2025 7:46 AM CDT Velia Crowe MD LAB POCT ORDERABLES - DEVICE Fi nal Result Performing Organization Address [facility] Co de Phone Number [facility] ([place]) [address] [place] [address] * eGFR (06/09/2025 5:00 AM CDT) eGFR [...] Inclusion of Race in Diagnosing Kidney Disease, JOHNATHANSN 2020). The CKD-EPI equation should not be used for patients with unstable renal function and has not been validated in children and those over 70. Current interpretive data was last reviewed 2021. Blood 06/09/2025 5:00 AM CDT 06/09/2025 5:55 AM CDT us Velia Crowe MD LAB BLOOD ORDERABLES Final Resu lt [facility] ([place]) 1 [facility] [place] [address] * (ABNORMAL) Differential, auto (06/09/2025 5:00 AM CDT) Neutrophil abs 4.37 1.50 - 6.50 K/cumm Imm gran abs 0.04 0.00 - 0.10 K/cumm [facility] ([place]) Lymphocyte abs 3.97(H) 0.80 - 3.30 K/cumm [facility] ([place]) Monocyte abs 0.70 0.20 - 0.80 K/cumm [...] 2018. Basophil pct 1.1 % [facility] ([place]) Comment: Interpretive Data Percent cell count reference ranges are not reported, since discordance with absolute values may lead to misinterpretation of CBC data. Current Interpretive Data was last revised on 2018. Blood 06/09/2025 5:00 AM CDT 06/09/2025 5:55 AM CDT us Velia Crowe MD LAB BLOOD ORDERABLES Final Resu lt [facility] ([place]) 1 [facility] Department [place] [address] * (ABNORMAL) CBC with auto differential (06/09/2025 [...] RDW SD 45.9 35.7 - 48.1 fL [facility] ([place]) NRBC abs 0.00 0.00 - 0.01 K/cumm [facility] ([place]) Blood 06/09/2025 5:00 AM CDT 06/09/2025 5:55 AM CDT us Velia Crowe MD LAB BLOOD ORDERABLES Final Resu lt [facility] ([place]) 1 [facility] [place] [address] * Phosphorus (06/09/2025 5:00 AM CDT) Phosphorus, pl 3.4 2.3 - 4.5 mg/dL [facility] ([place]) Blood 06/09/2025 5:00 AM CDT 06/09/2025 5:55 AM CDT us Velia Crowe MD LAB BLOOD ORDERABLES Final Resu lt Performing Organization Address City/[facility]/ZIP Co de Phone Number [facility] ([place]) [address] [facility] [place] [address] * Magnesium (06/09/2025 5:00 AM CDT) Magnesium 2.1 1.4 - 2.5 mg/dL [facility] ([place]) Blood 06/09/2025 5:00 AM CDT 06/09/2025 5:55 AM CDT us Velia Crowe MD LAB BLOOD ORDERABLES Final Resu lt [facility] ([place]) [address] [facility] [place] [address] * (ABNORMAL) Basic metabolic panel (06/09/2025 5:00 AM CDT) Sodium 134(L) 135 - 145 mmol/L [facility] ([place]) Potassium, pl 3.6 3.3 - 4.9 mmol/L [facility] ([place]) Chloride 98 97 - 110 mmol/L [facility] ([place]) CO2 24 22 - 32 mmol/L [facility] ([place]) Anion gap 12 2 - 15 mmol/L [facility] ([place]) BUN 10 6 - 25 mg/dL [facility] ([place]) Creatinine 0.77 0.60 - 1.10 mg/dL [facility] ([place]) Glucose 166 70 - 199 mg/dL [facility] ([place]) Comment: Interpretive Data Fasting glucose >/= [...] 2022. Calcium 9.1 8.5 - 10.3 mg/dL [facility] ([place]) Blood 06/09/2025 5:00 AM CDT 06/09/2025 5:55 AM CDT us Velia Crowe MD LAB BLOOD ORDERABLES Final Resu lt [facility] ([place]) 1 [facility] [place] [address] * POCT glucose (06/09/2025 2:20 AM CDT) Glucose, POC 165 70 - 199 mg/dL Blood 06/09/2025 2:20 AM CDT 06/09/2025 2:20 AM CDT Velia Crowe MD LAB POCT ORDERABLES - DEVICE Fi nal Result [facility] ([place]) 1 [facility] [place] [address] * (ABNORMAL) POCT glucose (06/08/2025 9:25 PM CDT) Glucose, POC 213(H) 70 - 199 mg/dL Blood 06/08/2025 9:25 PM CDT 06/08/2025 9:25 PM CDT Velia Crowe MD LAB POCT ORDERABLES - DEVICE Fi nal Result Performing Organization Address City/[facility]/ZIP Co de Phone Number [facility] ([place]) [address] [place] [address] * POCT glucose (06/08/2025 4:52 PM CDT) Glucose, POC 155 70 - 199 mg/dL Blood 06/08/2025 4:52 PM CDT 06/08/2025 4:52 PM CDT Velia Crowe MD LAB POCT ORDERABLES - DEVICE Fi nal Result Performing Organization Address [facility]/ZIP Co de Phone Number [facility] ([place]) 1 [facility] [place] [address] * POCT glucose (06/08/2025 11:16 AM CDT) Glucose, POC 191 70 - 199 mg/dL Blood 06/08/2025 11:1 6 AM CDT 06/08/2025 11:16 AM CDT Velia Crowe MD LAB POCT ORDERABLES - DEVICE Fi nal Result [facility] ([place]) 1 [facility] [place] [address] * POCT glucose (06/08/2025 7:55 AM CDT) [facility] Glucose, POC 134 70 - 199 mg/dL Blood 06/08/2025 7:55 AM CDT 06/08/2025 7:55 AM CDT Velia Crowe MD LAB POCT ORDERABLES - DEVICE Fi nal Result Performing Organization Address City/[facility]/ZIP Co de Phone Number [facility] ([place]) [address] [place] [address] [place] [address] * eGFR (06/08/2025 4:42 AM CDT) [facility] eGFR 77 >=60 mL/min/1. 73 m2 Comment: [...] ORDERABLES Final Resu lt Performing Organization Address City/[facility]/ZIP Co de Phone Number [facility] ([place]) 1 [facility] [place] [address] * (ABNORMAL) Differential, auto (06/08/2025 4:42 AM CDT) [facility] Neutrophil abs 5.08 1.50 - 6.50 K/cumm [...] Final Resu lt [facility] ([place]) [address] [facility] [place] [address] * (ABNORMAL) CBC with auto differential (06/08/2025 4:42 AM CDT) WBC 10.49(H) 3.80 - 9.90 K/cumm Hgb 11.6(L) 11.9 - 15.5 g/dL [facility] ([place]) Hct 35.1(L) 35.6 - 45.5 % [facility] ([place]) Plt 332 150 - 400 K/cumm [facility] ([place]) MPV 10.1 9.1 - 12.3 fL [facility] ([place]) RBC 4.20 3.90 - 5.20 M/cumm [facility] ([place]) MCV 83.6 81.3 - 96.4 fL [facility] ([place]) MCH 27.6 27.1 - 33.3 pg [facility] ([place]) MCHC 33.0 32.3 - 35.7 g/dL [facility] ([place]) RDW CV 14.7 11.1 - 14.9 % [facility] ([place]) RDW SD 44.5 35.7 - 48.1 fL [facility] ([place]) NRBC abs 0.00 0.00 - 0.01 K/cumm [facility] ([place]) Blood 06/08/2025 4:42 AM CDT 06/08/2025 5:17 AM CDT Velia Crowe MD LAB BLOOD ORDERABLES Final Resu lt [facility] ([place]) [address] [facility] [place] [address] * Phosphorus (06/08/2025 4:42 AM CDT) Phosphorus, pl 3.9 2.3 - 4.5 mg/dL [facility] ([place]) Blood 06/08/2025 4:42 AM CDT 06/08/2025 5:18 AM CDT Velia Crowe MD LAB BLOOD ORDERABLES Final Resu lt [facility] ([place]) [address] [facility] [place] [address] * Magnesium (06/08/2025 4:42 AM CDT) Magnesium 1.7 1.4 - 2.5 mg/dL [facility] ([place]) Blood 06/08/2025 4:42 AM CDT 06/08/2025 5:18 AM CDT Velia Crowe MD LAB BLOOD ORDERABLES Final Resu lt Performing Organization Address City/[facility]/ZIP Co de Phone Number [facility] ([place]) 1 [facility] [place] [address] * (ABNORMAL) Basic metabolic panel (06/08/2025 4:42 AM CDT) Sodium 134(L) 135 - 145 mmol/L [facility] ([place]) Potassium, pl 3.5 3.3 - 4.9 mmol/L [facility] ([place]) Chloride 100 97 - 110 mmol/L [facility] ([place]) CO2 21(L) 22 - 32 mmol/L [facility] ([place]) Anion gap 13 2 - 15 mmol/L [facility] ([place]) BUN 9 6 - 25 mg/dL [facility] ([place]) Creatinine 0.82 0.60 - 1.10 mg/dL [facility] ([place]) Glucose 156 70 - 199 mg/dL [facility] ([place]) [...] 2022. Calcium 9.0 8.5 - 10.3 mg/dL [facility] ([place]) Blood 06/08/2025 4:42 AM CDT 06/08/2025 5:18 AM CDT Velia Crowe MD LAB BLOOD ORDERABLES Final Resu lt Performing Organization Address City/[facility]/ZIP Co de Phone Number [facility] ([place]) 1 [facility] [address] [place] [address] * POCT glucose (06/08/2025 2:14 AM CDT) Glucose, POC 158 70 - 199 mg/dL Blood 06/08/2025 2:14 AM CDT 06/08/2025 2:14 AM CDT Velia Crowe MD LAB POCT ORDERABLES - DEVICE Fi nal Result Performing Organization Address [facility] Co de Phone Number DARINEL RICHTER ([employer]) [address] [facility] [address] [place] [address] * (ABNORMAL) POCT glucose (06/07/2025 7:44 PM CDT) Glucose, POC 210(H) 70 - 199 mg/dL Blood 06/07/2025 7:44 PM CDT 06/07/2025 7:44 PM CDT Velia Crowe MD LAB POCT ORDERABLES - DEVICE Fi nal Result Performing Organization Address [facility] Co de Phone Number DARINEL RICHTER ([place]) 1 [facility] [place] [address] * POCT glucose (06/07/2025 4:46 PM CDT) Glucose, POC 174 70 - 199 mg/dL Blood 06/07/2025 4:46 PM CDT 06/07/2025 4:46 PM CDT Velia Crowe MD LAB POCT ORDERABLES - DEVICE Fi nal Result Performing Organization Address City/[facility]/ZIP Co de Phone Number DARINEL RICHTER ([place]) 1 [facility] [place] [address] * POCT glucose (06/07/2025 11:16 AM CDT) Glucose, POC 165 70 - 199 mg/dL Blood 06/07/2025 11:1 6 AM CDT 06/07/2025 11:16 AM CDT Velia Crowe MD LAB POCT ORDERABLES - DEVICE Fi nal Result Performing Organization Address City/[facility]/ZIP Co de Phone Number DARINEL [facility] ([place]) 1 [facility] [place] [address] * POCT glucose (06/07/2025 7:59 AM CDT) Glucose, POC 143 70 - 199 mg/dL Blood 06/07/2025 7:59 AM CDT 06/07/2025 7:59 AM CDT Velia Crowe MD LAB POCT ORDERABLES - DEVICE Fi nal Result DARINEL [facility] ([place]) 1 [facility] [place] [address] * POCT glucose (06/07/2025 2:14 AM CDT) Glucose, POC 144 70 - 199 mg/dL Blood 06/07/2025 2:14 AM CDT 06/07/2025 2:14 AM CDT Velia Crowe MD LAB POCT ORDERABLES - DEVICE Fi nal Result Performing Organization Address City/[facility]/ZIP Co de Phone Number DARINEL RICHTER ([place]) 1 [facility] [place] [address] * POCT glucose (06/06/2025 9:59 PM CDT) Glucose, POC 146 70 - 199 mg/dL Blood 06/06/2025 9:59 PM CDT 06/06/2025 9:59 PM CDT us Velia Crowe MD LAB POCT ORDERABLES - DEVICE Fi nal Result Performing Organization Address [facility] Co de Phone Number DARINEL RICHTER ([place]) 1 [facility] [place] [address] * POCT glucose (06/06/2025 5:03 PM CDT) Glucose, POC 136 70 - 199 mg/dL Blood 06/06/2025 5:03 PM CDT 06/06/2025 5:03 PM CDT us Velia Crowe MD LAB POCT ORDERABLES - DEVICE Fi nal Result Performing Organization Address City/[facility]/ZIP Co de Phone Number DARINEL RICHTER ([place]) 1 [facility] [place] [address] * POCT glucose (06/06/2025 11:29 AM CDT) Glucose, POC 154 70 - 199 mg/dL Blood 06/06/2025 11:2 9 AM CDT 06/06/2025 11:29 AM CDT us Velia Crowe MD LAB POCT ORDERABLES - DEVICE Fi nal Result DARINEL RICHTER ([place]) 1 [facility] [place] [address] * POCT glucose (06/06/2025 8:13 AM CDT) Glucose, POC 157 70 - 199 mg/dL Blood 06/06/2025 8:13 AM CDT 06/06/2025 8:13 AM CDT Velia Crowe MD LAB POCT ORDERABLES - DEVICE Fi nal Result DARINEL RICHTER ([place]) 1 [facility] [place] [address] * eGFR (06/06/2025 3:54 AM CDT) Pathologist [facility] eGFR >90 >=60 mL/min/1. 73 m2 Comment: [...] BLOOD ORDERABLES Final Resu lt DARINEL RICHTER ([place]) 1 [facility] [place] [address] * (ABNORMAL) Differential, auto (06/06/2025 3:54 AM CDT) Neutrophil abs 9.75(H) 1.50 - 6.50 K/cumm Imm gran abs 0.06 0.00 - 0.10 K/cumm [facility] ([place]) Lymphocyte abs 4.60(H) 0.80 - 3.30 K/cumm [facility] ([place]) Monocyte abs 0.74 0.20 - 0.80 K/cumm [facility] ([place]) Eosinophil abs 0.69(H) 0.00 - 0.50 K/cumm [facility] ([place]) Basophil abs 0.13(H) 0.00 - 0.10 K/cumm [facility] ([place]) Neutrophil pct 61.1 % [facility] ([place]) Comment: Interpretive [...] ORDERABLES Final Resu lt Performing Organization Address City/[facility]/ZIP Co de Phone Number [facility] ([place]) 1 [facility] [place] [address] * (ABNORMAL) CBC with auto differential (06/06/2025 3:54 AM CDT) WBC 15.97(H) 3.80 - 9.90 K/cumm Hgb 11.2(L) 11.9 - 15.5 g/dL [facility] ([place]) Hct 34.7(L) 35.6 - 45.5 % [facility] ([place]) Plt 282 150 - 400 K/cumm [facility] ([place]) MPV 11.0 9.1 - 12.3 fL [facility] ([place]) RBC 3.99 3.90 - 5.20 M/cumm [facility] ([place]) MCV 87.0 81.3 - 96.4 fL [facility] ([place]) MCH 28.1 27.1 - 33.3 pg [facility] ([place]) MCHC 32.3 32.3 - 35.7 g/dL [facility] ([place]) RDW CV 14.8 11.1 - 14.9 % [facility] ([place]) RDW SD 47.0 35.7 - 48.1 fL [facility] ([place]) NRBC abs 0.00 0.00 - 0.01 K/cumm [facility] ([place]) Blood 06/06/2025 3:54 AM CDT 06/06/2025 4:40 AM CDT Velia Crowe MD LAB BLOOD ORDERABLES Final Resu lt Performing Organization Address City/[facility]/ZIP Co de Phone Number [facility]EL [facility] ([place]) 1 [facility] [place] [address] * Phosphorus (06/06/2025 3:54 AM CDT) Pathologist [facility] Phosphorus, pl 2.9 2.3 - 4.5 mg/dL [facility] ([place]) Blood 06/06/2025 3:54 AM CDT 06/06/2025 4:40 AM CDT Velia Crowe MD LAB BLOOD ORDERABLES Final Resu lt DARINEL RICHTER ([place]) 1 [place] [address] * Magnesium (06/06/2025 3:54 AM CDT) [facility] Magnesium 1.9 1.4 - 2.5 mg/dL [facility] ([place]) Blood 06/06/2025 3:54 AM CDT 06/06/2025 4:40 AM CDT Velia Crowe MD LAB BLOOD ORDERABLES Final Resu lt Performing Organization Address City/[facility]/ZIP Co de Phone Number DARINEL RICHTER ([place]) 1 [place] [address] * (ABNORMAL) Basic metabolic panel (06/06/2025 3:54 AM CDT) [facility] Sodium 136 135 - 145 mmol/L [facility] ([place]) Potassium, pl 3.7 3.3 - 4.9 mmol/L [facility] ([place]) Chloride 105 97 - 110 mmol/L [facility] ([place]) CO2 18(L) 22 - 32 mmol/L [facility] ([place]) Anion gap 13 2 - 15 mmol/L [facility] ([place]) BUN 7 6 - 25 mg/dL [facility] ([place]) Creatinine 0.66 0.60 - 1.10 mg/dL [facility] ([place]) Glucose 162 70 - 199 mg/dL [facility] ([place]) Comment: Interpretive Data Fasting [...] 2022. Calcium 8.6 8.5 - 10.3 mg/dL [facility] ([place]) Blood 06/06/2025 3:54 AM CDT 06/06/2025 4:40 AM CDT Velia Crowe MD LAB BLOOD ORDERABLES Final Resu lt Performing Organization Address City/[facility]/ZIP Co de Phone Number DARINEL [facility] ([place]) 1 [facility] [address] [place] [address] * POCT glucose (06/06/2025 2:37 AM CDT) Glucose, POC 169 70 - 199 mg/dL Blood 06/06/2025 2:37 AM CDT 06/06/2025 2:37 AM CDT Velia Crowe MD LAB POCT ORDERABLES - DEVICE Fi nal Result Performing Organization Address City/[facility]/ZIP Co de Phone Number DARINEL RICHTER ([place]) 1 [facility] [address] [place] [address] * (ABNORMAL) POCT glucose (06/05/2025 9:15 PM CDT) Glucose, POC 216(H) 70 - 199 mg/dL Blood 06/05/2025 9:15 PM CDT 06/05/2025 9:15 PM CDT Velia Crowe MD LAB POCT ORDERABLES - DEVICE Fi nal Result DARINEL RICHTER ([place]) 1 [facility] [place] [address] * POCT glucose (06/05/2025 4:47 PM CDT) Glucose, POC 120 70 - 199 mg/dL Blood 06/05/2025 4:47 PM CDT 06/05/2025 4:47 PM CDT Velia Crowe MD LAB POCT ORDERABLES - DEVICE Fi nal Result Performing Organization Address City/[facility]/ZIP Co de Phone Number DARINEL RICHTER ([place]) 1 [facility] [place] [address] * POCT glucose (06/05/2025 12:23 PM CDT) Glucose, POC 167 70 - 199 mg/dL Blood 06/05/2025 12:2 3 PM CDT 06/05/2025 12:23 PM CDT Velia Crowe MD LAB POCT ORDERABLES - DEVICE Fi nal Result Performing Organization Address [facility] Co de Phone Number [facility]EL [facility] ([place]) 1 [facility] [place] [address] * (ABNORMAL) POCT glucose (06/05/2025 8:10 AM CDT) Glucose, POC 205(H) 70 - 199 mg/dL Blood 06/05/2025 8:10 AM CDT 06/05/2025 8:10 AM CDT us Velia Crowe MD LAB POCT ORDERABLES - DEVICE Fi nal Result [facility]EL [facility] ([place]) 1 [facility] [place] [address] * eGFR (06/05/2025 7:32 AM CDT) eGFR [...] LAB BLOOD ORDERABLES Final Resu lt DARINEL [facility] ([place]) 1 [facility] [place] [address] * (ABNORMAL) Differential, auto (06/05/2025 7:32 AM CDT) Neutrophil abs 13.82(H) 1.50 - 6.50 K/cumm Imm gran abs 0.09 0.00 - 0.10 K/cumm [facility] ([place]) Lymphocyte abs 3.45(H) 0.80 - 3.30 K/cumm [facility] ([place]) Monocyte abs 0.78 0.20 - 0.80 K/cumm [facility] ([place]) Eosinophil abs 0.49 0.00 - 0.50 K/cumm [facility] ([place]) Basophil abs 0.09 0.00 - 0.10 K/cumm [facility] ([place]) Neutrophil pct 73.8 % [facility] ([place]) Comment: Interpretive [...] lt DARINEL RICHTER ([place]) 1 [facility] [place] [address] * (ABNORMAL) CBC with auto differential (06/05/2025 [...] MD LAB BLOOD ORDERABLES Final Resu lt DRAINEL RICHTER ([place]) 1 [facility] [place] [address] * (ABNORMAL) Phosphorus (06/05/2025 7:32 AM CDT) Phosphorus, pl 2.0(L) 2.3 - 4.5 mg/dL [facility] ([place]) Blood 06/05/2025 7:32 AM CDT 06/05/2025 7:35 AM CDT Velia Crowe MD LAB BLOOD ORDERABLES Final Resu lt DARINEL RICHTER ([place]) 1 [facility] [place] [address] * Magnesium (06/05/2025 7:32 AM CDT) Magnesium 1.5 1.4 - 2.5 mg/dL [facility] ([place]) Blood 06/05/2025 7:32 AM CDT 06/05/2025 7:35 AM CDT us Velia Crowe MD LAB BLOOD ORDERABLES Final Resu lt [facility] ([place]) 1 [facility] [place] [address] * (ABNORMAL) Comprehensive metabolic panel (06/05/2025 7:32 AM CDT) Sodium 139 135 - 145 mmol/L [facility] ([place]) Potassium, pl 2.6(C) 3.3 - 4.9 mmol/L [facility] ([place]) Comment:Critical Result call ed by [email or web address] at 2025-06-05 08:27:22. Result Read Back by Patricia Alvarez/coco Chloride 103 97 - 110 mmol/L [facility] [...] Bilirubin, total 0.2 0.1 - 1.2 mg/dL [facility] ([place]) Protein, pl 5.9(L) 6.5 - 8.5 g/dL [facility] ([place]) Albumin 3.1(L) 3.5 - 5.0 g/dL [facility] ([place]) Alk phos 125 40 - 130 Units/L [facility] ([place]) ALT 9 7 - 45 Units/L [facility] ([place]) AST 9(L) 10 - 45 Units/L [facility] ([place]) Blood 06/05/2025 7:32 AM CDT 06/05/2025 7:35 AM CDT Velia Crowe MD LAB BLOOD ORDERABLES Final Resu lt Performing Organization Address [facility] Co de Phone Number [facility] ([place]) 1 [facility] [address] [place] [address] * (ABNORMAL) POCT glucose (06/05/2025 2:39 AM CDT) Glucose, POC 234(H) 70 - 199 mg/dL Comment:Glu2: RN/ Notified Blood 06/05/2025 2:39 AM CDT 06/05/2025 2:39 AM CDT Velia Crowe MD LAB POCT ORDERABLES - DEVICE Fi nal Result Performing Organization Address City/[facility]/ZIP Co de Phone Number DARINEL [facility] ([place]) 1 [facility] [place] [address] * (ABNORMAL) POCT glucose (2025 9:18 PM CDT) Glucose, POC 213(H) 70 - 199 mg/dL Blood 2025 9:18 PM CDT 2025 9:18 PM CDT Velia Crowe MD LAB POCT ORDERABLES - DEVICE Fi nal Result DARINEL RICHTER ([place]) 1 [facility] [place] [address] * (ABNORMAL) POCT glucose (2025 4:38 PM CDT) Glucose, POC 221(H) 70 - 199 mg/dL Blood 2025 4:38 PM CDT 2025 4:38 PM CDT Velia Crowe MD LAB POCT ORDERABLES - DEVICE Fi nal Result Performing Organization Address [facility] Co de Phone Number DARINEL RICHTER ([place]) 1 [facility] [place] [address] * (ABNORMAL) POCT glucose (2025 11:48 AM CDT) Glucose, POC 246(H) 70 - 199 mg/dL Blood 2025 11:4 8 AM CDT 2025 11:48 AM CDT Velia Crowe MD LAB POCT ORDERABLES - DEVICE Fi nal Result Performing Organization Address City/[facility]/ZIP Co de Phone Number DARINEL RICHTER ([place]) 1 [facility] [place] [address] * POCT glucose (2025 8:03 AM CDT) Glucose, POC 196 70 - 199 mg/dL Blood 2025 8:03 AM CDT 2025 8:03 AM CDT us Velia Crowe MD LAB POCT ORDERABLES - DEVICE Fi nal Result DARINEL RICHTER ([place]) 1 [facility] [place] [address] * eGFR (2025 7:00 AM CDT) eGFR [...] LAB BLOOD ORDERABLES Final Resu lt DARINEL [facility] ([place]) 1 [facility] [place] [address] * (ABNORMAL) Differential, auto (2025 7:00 AM CDT) Neutrophil abs 29.11(H) 1.50 - 6.50 K/cumm Imm gran abs 0.42(H) 0.00 - 0.10 K/cumm [facility] ([place]) Lymphocyte abs 3.40(H) 0.80 - 3.30 K/cumm [facility] ([place]) Monocyte abs 1.47(H) 0.20 - 0.80 K/cumm [facility] ([place]) Eosinophil abs 0.17 0.00 - 0.50 K/cumm [facility] ([place]) Basophil abs 0.14(H) 0.00 - 0.10 K/cumm [facility] ([place]) Neutrophil pct 83.9 % [facility] ([place]) Comment: Interpretive Data Percent cell count reference ranges are not reported, since discordance with absolute values may lead to misinterpretation of CBC data. Current Interpretive Data was last revised on 2018. Imm gran pct 1.2 % [facility] ([place]) Comment: [...] BLOOD ORDERABLES Final Resu lt DARINEL NEELAM ([place]) 1 [facility] [place] [address] * (ABNORMAL) CBC with auto differential (2025 [...] Screen Results confirmed by manual morphology review. [facility] ([place]) Blood 2025 7:00 AM CDT 2025 7:19 AM CDT Velia Crowe MD LAB BLOOD ORDERABLES Edited Res ult - Final DARINEL RICHTER ([place]) 1 [facility] [address] [place] [address] * Phosphorus (2025 7:00 AM CDT) Phosphorus, pl 2.5 2.3 - 4.5 mg/dL [facility] ([place]) Blood 2025 7:00 AM CDT 2025 7:19 AM CDT us Velia Crowe MD LAB BLOOD ORDERABLES Final Resu lt DARINEL RICHTER ([place]) 1 [facility] [place] [address] * Magnesium (2025 7:00 AM CDT) Magnesium 1.8 1.4 - 2.5 mg/dL [facility] ([place]) Blood 2025 7:00 AM CDT 2025 7:19 AM CDT Velia Crowe MD LAB BLOOD ORDERABLES Final Resu lt [facility] ([place]) [address] [facility] [place] [address] * (ABNORMAL) Comprehensive metabolic panel (2025 7:00 AM CDT) Sodium 141 135 - 145 mmol/L [facility] ([place]) Potassium, pl 3.3 3.3 - [...] ORDERABLES Final Resu lt Performing Organization Address City/[facility]/ZIP Co de Phone Number [facility] ([place]) [address] [place] [address] [place] [address] * (ABNORMAL) C. difficile testing Stool (2025 5:40 AM CDT) Pathologist [facility] Result Positive Negative Toxin Result Positive Negative [facility] ([place]) C. diff result Positive, free toxin(A) Negative, free toxin [facility] ([place]) C. diff interp Toxigenic Clostridioides (Clostridium) difficile detected. Analysis was performed using a two-step methodology using glutamate dehydrogenase antigen detection followed by detection of C. difficile toxin(s). [facility] ([place]) Stool 2025 5:40 AM CDT 2025 6:07 AM CDT us Naif Sosa MD LAB MICROBIOLOGY - GENERAL ORDE ANÍBAL Final Result [facility] ([place]) 1 [facility] [place] [address] * POCT glucose (2025 2:12 AM CDT) [facility] Glucose, POC 171 70 - 199 mg/dL Blood 2025 2:12 AM CDT 2025 2:12 AM CDT us Velia Crowe MD LAB POCT ORDERABLES - DEVICE Fi nal Result Performing Organization Address City/[facility] Co de Phone Number DARINEL RICHTER ([place]) 1 [facility] [place] [address] * POCT glucose (06/03/2025 8:29 PM CDT) Glucose, POC 193 70 - 199 mg/dL Blood 06/03/2025 8:29 PM CDT 06/03/2025 8:29 PM CDT us Velia Crowe MD LAB POCT ORDERABLES - DEVICE Fi nal Result Performing Organization Address [facility] de Phone Number DARINEL RICHTER ([place]) 1 [facility] [place] [address] * POCT glucose (06/03/2025 4:44 PM CDT) Glucose, POC 182 70 - 199 mg/dL Blood 06/03/2025 4:44 PM CDT 06/03/2025 4:44 PM CDT us Velia Crowe MD LAB POCT ORDERABLES - DEVICE Fi nal Result Performing Organization Address [facility] Co de Phone Number DARINEL RICHTER ([place]) 1 [facility] [place] [address] * POCT glucose (06/03/2025 11:54 AM CDT) Glucose, POC 166 70 - 199 mg/dL Blood 06/03/2025 11:5 4 AM CDT 06/03/2025 11:54 AM CDT us Velia Crowe MD LAB POCT ORDERABLES - DEVICE Fi nal Result Performing Organization Address City/[facility]/ZIP Co de Phone Number DARINEL RICHTER ([place]) 1 [facility] [place] [address] * POCT glucose (06/03/2025 8:29 AM CDT) Glucose, POC 150 70 - 199 mg/dL Blood 06/03/2025 8:29 AM CDT 06/03/2025 8:29 AM CDT Velia Crowe MD LAB POCT ORDERABLES - DEVICE Fi nal Result DARINEL RICHTER ([place]) 1 [facility] [place] [address] * MRI Brain WO Contrast (06/03/2025 8:27 AM CDT) Anatomical Region Laterality Modality Head and Neck N/A Magnetic Resonan ce 06/03/2025 8:41 AM CDT Narrative 06/03/2025 9:02 AM CDT EXAM DESCRIPTION: MRI BRAIN WO CONTRAST REASON FOR STUDY: Stroke, follow up Stroke f/u, AMS. Right-sided weakness onset Monday, hx Alzheimer's, subdural hematoma from fall with [...] Steven Montoya M.D. MZ: RADHA Report ID: [id number] Reading Location: [place] [address] Procedure Note Steven Montoya MD - 06/03/2025 EXAM DESCRIPTION: MRI BRAIN WO CONTRAST REASON FOR STUDY: Stroke, follow up Stroke f/u, AMS. Right-sided weakness onset Monday morning, hxAlzheimer's, subdural hematoma from fall with ron hole evacuation 02/04, CML, CVA, encephalopathy TECHNIQUE: Multiplanar imaging includes non-contrasted T1, T2, FLAIR, and diffusion with ADC map sequences. Additional sequence(s) sensitive toblood products. Images stored on PACS. COMPARISON: 05/20/2025, [...] Steven Montoya M.D. MZ: RADHA Report ID: [id number] Reading Location: [place] [address] us Damian Quesada DESIGN CELL ENGINEER IMG MRI PROCEDURES Final Re sult * [...] LAB BLOOD ORDERABLES Fin al Result DARINEL [facility] ([place]) 1 [facility] [place] [address] * (ABNORMAL) Differential, auto (06/03/2025 7:45 AM CDT) Neutrophil abs 11.97(H) 1.50 - 6.50 K/cumm Imm gran abs 0.08 0.00 - 0.10 K/cumm [facility] ([place]) Lymphocyte abs 3.92(H) 0.80 - 3.30 K/cumm [facility] ([place]) Monocyte abs 0.89(H) 0.20 - 0.80 K/cumm [facility] ([place]) Eosinophil abs 0.32 0.00 - 0.50 K/cumm [facility] ([place]) Basophil abs 0.07 0.00 - 0.10 K/cumm [facility] ([place]) Neutrophil pct 69.3 % [facility] ([place]) Comment: Interpretive [...] Lymphocyte pct 22.7 % [facility] ([place]) Comment: Interpretive Data Percent cell count reference ranges are not reported, since discordance with absolute values may lead to misinterpretation of CBC data. Current Interpretive Data was last revised on 2018. Monocyte pct 5.2 % [facility] ([place]) Comment: Interpretive Data Percent cell count reference ranges are not reported, since discordance with absolute values may lead to misinterpretation of CBC data. Current Interpretive Data was last revised on 2018. Eosinophil pct 1.9 % [facility] ([place]) Comment: Interpretive [...] 7:45 AM CDT 06/03/2025 7:56 AM CDT us Beverly Goff DO LAB BLOOD ORDERABLES Fin al Result DARINEL [facility] ([place]) 1 [facility] [place], [place] [id number] * (ABNORMAL) CBC with auto differential (06/03/2025 [...] Result [facility] ([place]) 1 [facility] [address] [place] [address] * Phosphorus (06/03/2025 7:45 AM CDT) Pathologist [facility] Phosphorus, pl 2.4 2.3 - 4.5 mg/dL [facility] ([place]) Blood 06/03/2025 7:45 AM CDT 06/03/2025 7:55 AM CDT [facility] LAB BLOOD ORDERABLES Fin al Result [facility] ([place]) 1 [facility] [place] [address] * (ABNORMAL) Magnesium (06/03/2025 7:45 AM CDT) Magnesium 1.3(L) 1.4 - 2.5 mg/dL [facility] ([place]) Blood 06/03/2025 7:45 AM CDT 06/03/2025 7:55 AM CDT us Beverly Goff DO LAB BLOOD ORDERABLES Fin al Result [facility] ([place]) 1 [facility] [place] [address] * (ABNORMAL) Comprehensive metabolic panel (06/03/2025 7:45 AM CDT) Sodium 138 135 - 145 mmol/L [facility] ([place]) Potassium, pl 2.7(C) 3.3 - 4.9 mmol/L [facility] ([place]) Comment:Critical Result call ed by [email or web address] at 2025-06-03 08:30:09. Result Read Back by Radha Centeno ([facility]) Chloride 107 97 - 110 mmol/L [facility] [...] Fin al Result DARINEL RICHTER ([place]) 1 [facility] [place] [address] * POCT glucose (06/03/2025 2:19 AM CDT) Glucose, POC 176 70 - 199 mg/dL Blood 06/03/2025 2:19 AM CDT 06/03/2025 2:19 AM CDT Beverly Goff DO LAB POCT ORDERABLES - DE VICE Final Result Performing Organization Address City/[facility]/ZIP Co de Phone Number DARINEL RICHTER ([place]) 1 [facility] [place] [address] * POCT glucose (06/02/2025 9:41 PM CDT) Glucose, POC 196 70 - 199 mg/dL Blood 06/02/2025 9:41 PM CDT 06/02/2025 9:41 PM CDT Beverly Goff DO LAB POCT ORDERABLES - DE VICE Final Result DARINEL RICHTER ([place]) 1 [facility] [place] [address] * ECG 12 lead (06/02/2025 9:32 PM CDT) 06/02/2025 9:32 PM CDT Narrative [facility] - 06/03/2025 7:43 AM CDT Vent Rate: 127 bpm RR Interval: 469 msec OK Interval: 158 msec QRS Duration: 82 msec QT Interval: 283 msec QTC Interval: 358 msec P-R-T [place]: 60 - 38 - 67 degrees IMPRESSION: Possible atrial flutter Compared to prior EKG, heart rate is now faster and atrial flutter has replaced sinus rhythm Electronically Signed By: Dr Javier Hartman Liat Potts MD ECG ORDERABLES Final Res ult [facility] * POCT glucose (06/02/2025 4:34 PM CDT) Glucose, POC 182 70 - 199 mg/dL Blood 06/02/2025 4:34 PM CDT 06/02/2025 4:34 PM CDT Beverly Goff DO LAB POCT ORDERABLES - DE VICE Final Result DARINEL RICHTER ([place]) 1 [facility] [place] [address] * EEG (06/02/2025 3:53 PM CDT) Anatomical [...] drowsiness. Clinicalcorrelation recommended. Job ID/Internal Job ID: [id number] Liat Potts MD NEUROLOGY ORDERABLES Aracelis l Result * MRSA Only (Staphylococcus aureus) PCR Nasal (06/02/2025 1:22 PM CDT) PCR Scrn, Methicillin resistant Staphylococcus aureus (MRSA) Not Detected Not Detected Comment: Interpretive Data Testing performed using Nucleic Acid Amplification with the [employer] Xpert MRSA NxG Assay. This assay detects target DNA from mecA, mecC and the SCCmec insertion site of Staphylococcus aureus using Real-Time PCR and has been cleared by the FDA. Performance characteristics have been verified by the [facility]. Current Interpretive Data was last revised on 2023 Nasal 06/02/2025 1:22 PM CDT 06/02/2025 1:30 PM CDT Beverly Goff DO LAB MICROBIOLOGY - GENER AL ORDERABLES Final Result DARINEL RICHTER ([employer]) 1 [facility] Department [place] [address] * TRANSTHORACIC ECHO (TTE) LIMITED/FOLLOW UP WO DOPPLER/CF WO CONTRAST (06/02/2025 12:40 PM CDT) EF Mod BP 40 % CONS SCIMAGE Anatomical Region Laterality Modality Ultrasound 06/02/2025 12:4 6 PM CDT Narrative 06/02/2025 2:20 PM CDT [address] [address] Limited Echocardiogram Report Patient Name: NUPUR RAMIREZ : 1955 Study Date: 06/02/2025 12:46:32 PM Gender: F Tech: AA Location: [id number] Ref Provider: POTTS, LIAT Height(Cm): BSA: Weight(Kg): Quality: Good PROCEDURES: Echocardiographic [...] Procedure Note Delores Birmingham MD - 06/02/[address] [address] Limited Echocardiogram Report Patient Name: NUPUR RAMIREZ : 1955 Study Date: 06/02/2025 12:46:32 PM Gender: F Tech: Location: [id number] Ref Provider: LIAT POTTS Height(Cm): BSA: Weight(Kg): [...] * POCT glucose (06/02/2025 11:19 AM CDT) [facility] Glucose, POC 165 70 - 199 mg/dL Blood 06/02/2025 11:1 9 AM CDT 06/02/2025 11:19 AM CDT us Beverly Goff DO LAB POCT ORDERABLES - DE VICE Final Result DARINEL RICHTER [place]) 1 [facility] Department [place] [address] * eGFR (06/02/2025 10:18 AM CDT) [facility] eGFR 73 >=60 mL/min/1. 73 m2 Comment: [...] ORDERABLES Fin al Result Performing Organization Address City/[facility] Co de Phone Number DARINEL [facility] ([place]) 1 [facility] [address] [place] [address] * Phosphorus (06/02/2025 10:18 AM CDT) Phosphorus, pl 3.4 2.3 - 4.5 mg/dL [facility] ([place]) Blood 06/02/2025 10:1 8 AM CDT 06/02/2025 11:45 AM CDT Beverly Goff DO LAB BLOOD ORDERABLES Fin al Result Performing Organization Address City/State/[facility] Co de Phone Number DARINEL RICHTER ([place]) 1 [facility] [place] [address] * Magnesium (06/02/2025 10:18 AM CDT) Magnesium 1.6 1.4 - 2.5 mg/dL [facility] ([place]) Blood 06/02/2025 10:1 8 AM CDT 06/02/2025 11:45 AM CDT Beverly Goff DO LAB BLOOD ORDERABLES Fin al Result DARINEL [facility] ([place]) 1 [facility] Department [place] [address] * (ABNORMAL) Comprehensive metabolic panel (06/02/2025 10:18 AM CDT) Sodium 138 135 - 145 mmol/L [facility] ([place]) Potassium, pl 3.5 3.3 - 4.9 mmol/L [facility] ([place]) Chloride 104 97 - 110 mmol/L [facility] ([place]) CO2 19(L) 22 - 32 mmol/L [facility] ([place]) Anion gap 15 2 - 15 mmol/L [facility] ([place]) BUN 12 6 - 25 mg/dL [facility] ([place]) [...] Result DARINEL RICHTER ([place]) 1 [facility] Department [place] [address] * POCT glucose (06/02/2025 8:09 AM CDT) Glucose, POC 182 70 - 199 mg/dL Blood 06/02/2025 8:09 AM CDT 06/02/2025 8:09 AM CDT Beverly Alva Denver [place] LAB POCT ORDERABLES - DE VICE Final Result Performing Organization Address City/[facility]/ZIP Co de Phone Number DARINEL RICHTER ([place]) 1 [facility] [place] [address] * (ABNORMAL) Differential, auto (06/02/2025 7:22 AM [...] Result D[facility]INEL [facility] ([place]) 1 [facility] Department of Laboratories [place], [place] [id number] * (ABNORMAL) CBC with auto differential (06/02/2025 7:22 AM CDT) WBC 8.04 3.80 - 9.90 K/cumm Hgb 12.6 11.9 - 15.5 g/dL [facility] ([place]) Hct 39.5 35.6 - 45.5 % [facility] ([place]) Plt 333 150 - 400 K/cumm [facility] ([place]) MPV 9.1 9.1 - 12.3 fL [facility] ([place]) RBC 4.59 3.90 - 5.20 M/cumm [facility] ([place]) MCV 86.1 81.3 - 96.4 fL [facility] ([place]) MCH 27.5 27.1 - 33.3 pg D[facility]INEL [facility] ([place]) MCHC 31.9(L) 32.3 - 35.7 g/dL [facility] ([place]) RDW CV 15.0(H) 11.1 - 14.9 % [facility]EL [facility] ([place]) RDW SD 45.7 35.7 - 48.1 fL [facility] ([place]) NRBC abs 0.00 0.00 - 0.01 K/cumm [facility] ([place]) Blood 06/02/2025 7:22 AM CDT 06/02/2025 7:31 AM CDT us Beverly Goff DO LAB BLOOD ORDERABLES Fin al Result DARINEL RICHTER ([place]) 1 [facility] [place] [address] * (ABNORMAL) POCT glucose (06/02/2025 3:23 AM CDT) Glucose, POC 241(H) 70 - 199 mg/dL Comment:Glu2: RN/ Notified Blood 06/02/2025 3:2 3 AM CDT 06/02/2025 3:23 AM CDT Kiley Kwok MD LAB POCT ORDERABLES - DEVICE Final Result Performing Organization Address City/[facility]/ZIP Co de Phone Number DARINEL RICHTER ([place]) 1 [facility] [address] [place] [address] * (ABNORMAL) Troponin T high-sensitivity 6-hour (06/01/2025 8:49 PM CDT) Trop T hs 308(C) <=14 ng/L DARINEL [facility] ([place]) Comment: Critical Result called by [email or web address] at 2025-06-01 21:59:03. Result Read Back by eve stone Interpretive Data For further hscTnT resources including the diagnostic algorithm and an aid in interpretation, copy and paste this link: https://nrl.testcatalog.org/show/hsTrop Current Interpretive Data last revised 2020. Trop T hs pct delta -47(C) % DARINEL RICHTER ([place]) Comment:Critical Result call ed by [id number] at 2025-06-01 21:59:16. Result Read Back by delphine stone Trop T hs interp Significa nt(C) DARINEL RICHTER ([place]) Comment:Critical Result call ed by [id number] at 2025-06-01 21:59:16. Result Read Back by delphine stone Blood 06/01/2025 8:49 PM CDT 06/01/2025 8:52 PM CDT us Liat Potts MD LAB BLOOD ORDERABLES Aracelis l Result Performing Organization Address City/[facility]/ZIP Co de Phone Number DARINEL RICHTER ([place]) 1 [facility] [place] [address] * POCT glucose (06/01/2025 8:46 PM CDT) Glucose, POC 186 70 - 199 mg/dL Blood 06/01/2025 8:46 PM CDT 06/01/2025 8:46 PM CDT Kiley Kwok MD LAB POCT ORDERABLES - DEVICE Final Result Performing Organization Address City/[facility]/ZIP Co de Phone Number DUCJOVANNI RICHTER ([place]) 1 [facility] [place] [address] * [place] CRITICAL CARE ILL/INJURED PATIENT INIT 30-74 MIN [...] patient to a continuous cardiac monitored bed. Liat Potts MD IN CLINIC/BEDSIDE ORDERAB LES Final Result * (ABNORMAL) Troponin T high-sensitivity 4-hour (06/01/2025 6:27 PM CDT) Trop T hs 367(C) <=14 ng/L DARINEL RICHTER ([place]) Comment: Critical Result called by [email or web address] at 2025-06-01 18:59:20. Result Read Back by Tabby Gonzalez (ER) Interpretive Data For further hscTnT resources including the diagnostic algorithm and an aid in interpretation, copy and paste this link: https://nrl.testcatalog.org/show/hsTrop Current Interpretive Data last revised 2020. Trop T hs pct delta -37(C) % [facility] ([place]) Comment:Critical Result call ed by [id number] at 2025-06-01 18:59:20. Result Read Back by Tabby Gonzalez (ER) Trop T hs interp Significa nt(C) [facility] ([place]) Comment:Critical Result call ed by [id number] at 2025-06-01 18:59:20. Result Read Back by Tabby Gonzalez (ER) Blood 06/01/2025 6:27 PM CDT 06/01/2025 6:37 PM CDT Liat Potts MD LAB BLOOD ORDERABLES Aracelis l Result DARINEL RICHTER ([place]) [address] [place] [address] * Sepsis Lactate w/ Reflex (06/01/2025 5:42 PM CDT) Sepsis Lactate 1.8 0.7 - 2.0 mmol/L Blood 06/01/2025 5:42 PM CDT 06/01/2025 5:46 PM CDT Liat Potts MD LAB BLOOD ORDERABLES Aracelis l Result Performing Organization Address [facility]/ZIP Co de Phone Number DARINEL RICHTER ([place]) 1 [facility] [place] [address] * (ABNORMAL) Troponin T high-sensitivity 2-hour (06/01/2025 4:29 PM CDT) Trop T hs 410(C) <=14 ng/L DARINEL RICHTER ([place]) Comment: Interpretive Data For further hscTnT resources including the diagnostic algorithm and an aid in interpretation, copy and paste this link: https://nrl.testcatalog.org/show/hsTrop Current Interpretive Data last revised 2020. Critical Result called by [email or web address] at 2025-06-01 17:07:25. Result Read Back by Anika Renteria (ER) Trop T hs pct delta -30(C) % [facility]EL [facility] ([place]) Comment:Critical Result call ed by [email or web address] at 2025-06-01 17:07:25. Result Read Back by Anika Renteria (ER) Trop T hs interp Significa nt(C) [facility]EL [facility] ([place]) Comment:Critical Result call ed by [id number] at 2025-06-01 17:07:25. Result Read Back by Anika Renteria (ER) Blood 06/01/2025 4:29 PM CDT 06/01/2025 4:31 PM CDT us Liat Potts MD LAB BLOOD ORDERABLES Aracelis lyle Result DARINEL RICHTER ([place]) 1 [facility] Department [place] [address] * CT Chest Abdomen Pelvis WO Contrast [...] Christopher Lemon M.D. KH: DREA Report ID: [id number] Reading Location: [id number] Procedure Note Christopher Lemon MD - 06/01/2025 [...] Christopher Lemon M.D. KH: DREA Report ID: [id number] Reading Location: [place] [address] Liat Potts MD IM CT PROCEDURES Final R esult * (ABNORMAL) Pro B-type natriuretic peptide (06/01/2025 4:25 PM CDT) NT-proBNP 13,130(H) <=300 pg/mL DARINEL NEELAM ([place]) Comment: Interpretive Comments: A. Dyspnea in Acute [...] et.al. Eur Heart J. 2006:27:330-337. 2. Hoang RW, Azul AM. J. AM Christian Cardiol: Cardiovasc Imag. 2009;2: 216- 225. Interpretive Data Last Revised Date: 2018. Blood 06/01/2025 4:25 PM CDT 06/01/2025 5:37 PM CDT us Liat Potts MD LAB BLOOD ORDERABLES Aracelis alvarenga Result DARINEL RICHTER ([place]) 1 [facility] Department [place] [address] * (ABNORMAL) Urinalysis reflex to microscopic and [...] tendency for uric acid stone formation. Source: [facility] Current Interpretive Data was last revised on [...] will be performed. [facility] ([place]) Urine 06/01/2025 3:17 PM CDT 06/01/2025 3:24 PM CDT Liat Potts MD LAB MICROBIOLOGY - GENERA L ORDERABLES Final Result D[facility]INEL [facility] ([place]) 1 [facility] [place] [address] * (ABNORMAL) Drugs of Abuse Screen, Urine without Confirmation (06/01/2025 3:17 PM CDT) Amphetamine, ur Not Detected CutOff 500ng/mL [facility] ([place]) Comment: Interpretive Data - Amphetamines: Samples containing greater than 500 ng/mL d-methamphetamine or other cross-reacting amphetamine compounds are reported as positive. Amphetamine immunoassays are subject to significant false positive rates due to cross-reactivity of non-amphetamine drugs. Confirmatory testing required for definitive results. Current Interpretive Data was last reviewed 2023. Barbiturates, ur Not Detected CutOff 200ng/mL [facility] ([place]) Comment: Interpretive Data - Barbiturates: Samples containing greater than 200 ng/mL secobarbital or other cross-reacting barbiturate compounds are reported as positive. False positive and false negative results are possible. Confirmatory testing required for definitive results. Current Interpretive Data was last reviewed 2023. Benzodiazepines, ur Screen Positive, presumptive (A) CutOff 100ng/mL [facility] ([place]) Comment: Interpretive Data - Benzodiazepines: Samples containing greater than 100 ng/mL nordiazepam or other cross-reacting compounds are reported as positive. False positive and false negative results are possible. Confirmatory testing required for definitive results. Current Interpretive Data was last reviewed 2023. Cannabinoids, ur Not Detected CutOff 50 ng/mL [facility] ([place]) Comment: Interpretive Data - Cannabinoids: [...] 2023. Opiates, ur Not Detected CutOff 300ng/mL DARINEL RICHTER ([place]) Comment: Interpretive Data - Opiates: Samples containing greater than 300 ng/mL morphine or other cross-reacting compounds are reported as positive. False positive and false negative results are possible. Confirmatory testing required for definitive results. Current Interpretive Data was last reviewed 2023. Oxycodone, ur Not Detected CutOff 100ng/mL DARINEL RICHTER ([place]) Comment: Interpretive Data - Oxycodone: Samples containing greater than 100 ng/mL oxycodone or other cross-reacting compounds are reported as positive. False positive and false negative results are possible. Confirmatory testing required for definitive results. Current Interpretive Data was last reviewed 2023. Phencyclidine, ur Not Detected CutOff 25 ng/mL DARINEL RICHTER ([place]) Comment: Interpretive Data - Phencyclidine: Samples containing greater than 25 ng/mL phencyclidine or other cross-reacting compounds are reported as positive. False positive and false negative results are possible. Confirmatory testing required for definitive results. Current Interpretive Data was last reviewed 2023. Urine Creatinine 60 mg/dL DUC RICHTER ([place]) Comment: Interpretive Data Urine Creatinine: < 10 mg/dL is extremely dilute = or > 10 but < 20 mg/dL is dilute = or > 20 mg/dL is normal Current Interpretive Data was last revised on 2018. Urine 06/01/2025 3:17 PM CDT 06/01/2025 3:24 PM CDT Narrative DARINEL RICHTER ([place]) - 06/01/2025 3:46 PM CDT Drug of Abuse screening is performed by immunoassay for medical purposes only. This is not to be used for Pain Management purposes. Liat Potts MD LAB URINE ORDERABLES Aracelis alvarenga Result DARINEL RICHTER ([place]) 1 [facility] [place] [address] * (ABNORMAL) Urinalysis, microscopic only (06/01/2025 3:17 PM CDT) WBC, ur 0-5 0 - 5 /HPF RBC, ur 0-2 0 - 2 /HPF [facility] ([place]) Epithelial cells, squamous, ur 1-5 0 - 5 /HPF [facility] ([place]) Bacteria, ur Trace(A) [facility] ([place]) Mucous, ur Present(A) [facility] ([place]) Hyaline casts, ur 6-10 0 - 10 /LPF [facility] ([place]) Culture Reflex Comment Reflex conditions for urine culture (WBC >10) not met. [facility] ([place]) Urine 06/01/2025 3:17 PM CDT 06/01/2025 3:24 PM CDT Liat Potts MD LAB URINE ORDERABLES Aracelis alvarenga Result [facility] ([place]) 1 [facility] Department [place] [address] * Blood culture Blood Peripheral (06/01/2025 3:06 PM CDT) Report Final Report: No growth Comment:Testing performed by : [facility], [address] [place]., [address] Blood (Peripheral) 06/01/2025 3:06 PM CDT 06/01/2025 5:52 PM CDT Narrative [facility] ([place]) - 06/06/2025 7:00 AM CDT From a [...] performance characteristics have been verified by the [facility]. For questions about this culture, contact the Microbiology Laboratory at [phone]. Interpretive data was last revised on 24. us Liat Potts MD LAB MICROBIOLOGY - GENERA L ORDERABLES Final Result DARINEL RICHTER [place]) 1 [facility] [place] [address] * CTA Stroke Head Neck W WO [...] bilateral PCOM. 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 Severe stenosis of the left PRODUCT/INDUSTRY CONSULTANT P1 and P2 segments with some reconstitution distally. PRODUCT/INDUSTRY CONSULTANT findings appear similar to the prior exam. [...] through out the cervical spine. LUNG APICES: Ppjli-iu-[id number] left and small right pleural effusions. Mosaic [...] 3. Redemonstrated severe stenosis of the left PRODUCT/INDUSTRY CONSULTANT P1-P2 segments and right PRODUCT/INDUSTRY CONSULTANT P2 segments. 4. Please refer to same day noncontrast head CT for non angiographic findings of the head. CAROTID CTA: 1. No large vessel occlusion. Atherosclerotic calcification of the bilateral carotid bulbs without high-grade stenosis. 2. New uwjan-[id number] left and small right pleural effusions. The findings were discussed with Dr. Potts via telephone on 06/01/2025 at 15:34 central standard time. THIS IS AN ELECTRONICALLY VERIFIED FINAL REPORT 06/01/2025 3:40 PM - Electronically signed by Vidal Ibarra M.D. MM: MM Report ID: [id number] Reading Location: [place] [address] Procedure Note Vidal Ibarra MD - 06/01/2025 [...] segments. There is severe stenosis of a [id number]. These findings are not significantly changed from [...] bilateral PCOM. Severe stenosis of the right PRODUCT/INDUSTRY CONSULTANT P2 segmentis unchanged. Severe stenosis of the left PRODUCT/INDUSTRY CONSULTANT P1 and P2 segments with some reconstitution distally. PRODUCT/INDUSTRY CONSULTANT findings appear similar to the prior exam. [...] through out the cervical spine. LUNG APICES: Zfuku-eq-rpqkpezi left and small right pleural effusions. Mosaic [...] 3. Redemonstrated severe stenosis of the left PRODUCT/INDUSTRY CONSULTANT P1-P2 segments andright PRODUCT/INDUSTRY CONSULTANT P2 segments. 4. Please refer to same day noncontrast head CT for non angiographic findings of the head. CAROTID CTA: 1. No large vessel occlusion. Atherosclerotic calcification of the bilateral carotid bulbs without high-grade stenosis. 2. New jskot-mn-timnetle left and small right pleural effusions. The findings were discussed with Dr. Potts via telephone on06/01/2025 at 15:34 central standard time. THIS IS AN ELECTRONICALLY VERIFIED FINAL REPORT 06/01/2025 3:40 PM - Electronically signed by Vidal Ibarra M.D. MM: MM Report ID: [id number] Reading Location: [place] [address] Liat Potts MD IMG CT PROCEDURES Final R esult * (ABNORMAL) Sepsis Lactate w/ Reflex (06/01/2025 2:59 PM CDT) Sepsis Lactate 2.2(H) 0.7 - 2.0 mmol/L Blood 06/01/2025 2:59 PM CDT 06/01/2025 3:24 PM CDT Liat Potts MD LAB BLOOD ORDERABLES Aracelis l Result DARINEL RICHTER ([place]) 1 [facility] Department [place] [address] * Blood culture Blood Peripheral (06/01/2025 2:59 PM CDT) Report Final Report: No growth Comment:Testing performed by : [facility], [address] [facility], [place]., [address] Blood (Peripheral) 06/01/2025 2:59 PM CDT 06/01/2025 [...] performance characteristics have been verified by the [facility]. For questions about this culture, contact the Microbiology Laboratory at [phone]. Interpretive data was last revised on 24. Liat Potts MD LAB MICROBIOLOGY - GENERA L ORDERABLES Final Result DARINEL RICHTER [place] 1 [facility] [place] [address] * CT Stroke Head WO Contrast (06/01/2025 [...] Christopher Barney M.D. KR: RAY Report ID: [id number] Reading Location: [id number] Procedure Note Christopher Barney MD - 06/01/2025 [...] Christopher Barney M.D. KR: RAY Report ID: [id number] Reading Location: [place] [address] Liat Potts MD IMG CT PROCEDURES Final R esult * (ABNORMAL) Troponin T high-sensitivity series (baseline, 2hr, 4hr, 6hr) (06/01/2025 2:49 PM CDT) Trop T hs 586(C) <=14 ng/L DARINEL RICHTER ([place]) Comment: Critical Result called by [id number] at 2025-06-01 15:19:56. Result Read Back by Anika Renteria () Interpretive Data For further hscTnT resources including the diagnostic algorithm and an aid in interpretation, copy and paste this link: https://nrl.testcatalog.org/show/hsTrop Current Interpretive Data last revised 2020. Blood 06/01/2025 2:49 PM CDT 06/01/2025 2:53 PM CDT Liat Potts MD LAB BLOOD ORDERABLES Aracelis l Result DARINEL RICHTER ([place]) 1 [facility] Department of Laboratories [place], [place] [id number] * (ABNORMAL) eGFR (06/01/2025 2:49 PM CDT) Pathologist [facility] eGFR 49(L) >=60 mL/min/1. 73 m2 Comment: [...] BLOOD ORDERABLES Aracelis alvarenga Result [facility] ([place]) 1 [facility] [place] [address] * (ABNORMAL) Differential, auto (06/01/2025 2:49 PM [...] Result DARINEL RICHTER ([place]) 1 [facility] [place] [address] * (ABNORMAL) CBC with auto differential (06/01/2025 2:49 PM CDT) WBC 11.21(H) 3.80 - 9.90 K/cumm Hgb 11.9 11.9 - 15.5 g/dL [facility] ([place]) Hct 36.6 35.6 - 45.5 % [facility] ([place]) Plt 447(H) 150 - 400 K/cumm [facility] ([place]) MPV 9.1 9.1 - 12.3 fL [facility] ([place]) RBC 4.23 3.90 - 5.20 M/cumm [facility] ([place]) MCV 86.5 81.3 - 96.4 fL [facility] ([place]) MCH 28.1 27.1 - 33.3 pg [facility] ([place]) MCHC 32.5 32.3 - 35.7 g/dL [facility] ([place]) RDW CV 15.3(H) 11.1 - 14.9 % [facility] ([place]) RDW SD 47.5 35.7 - 48.1 fL [facility] NRBC abs 0.00 0.00 - 0.01 K/cumm [facility] ([place]) Blood 06/01/2025 2:49 PM CDT 06/01/2025 2:53 PM CDT Liat Potts MD LAB BLOOD ORDERABLES Aracelis l Result Performing Organization Address [facility] Co de Phone Number DARINEL RICHTER ([place]) 1 [facility] [address] [place] [address] * (ABNORMAL) aPTT (06/01/2025 2:49 PM CDT) aPTT 26(L) 28 - 38 sec DARINEL RICHTER ([place]) Comment: Interpretive Data Heparin therapeutic range: 66.0 - 100.0 seconds. Range based on correlation with therapeutic heparin activity range of 0.3 - 0.7 Units/mL. Current interpretive data was last revised on 2023. Blood 06/01/2025 2:49 PM CDT 06/01/2025 2:53 PM CDT Liat Potts MD LAB BLOOD ORDERABLES Aracelis l Result Performing Organization Address City/[facility]/ZIP Co de Phone Number DARINEL RICHTER ([place]) 1 [facility] [address] [place] [address] * (ABNORMAL) Protime-INR (06/01/2025 2:49 PM CDT) PT 13.1(H) 9.7 - 13.0 sec [facility] ([place]) INR 1.21(H) 0.90 - 1.20 [facility] ([place]) Comment: Interpretive data Oral anticoagulant therapeutic ranges: Venous thromboembolism prophylaxis or treatment: 2.0-3.0 CARDIOLOGY Standard range: 2.0-3.0 High-intensity range: 2.5-3.5 Refer to indication-specific guidelines for appropriate target ranges for prosthetic heart valve replacement. Current interpretive data was last revised on 2019. Blood 06/01/2025 2:49 PM CDT 06/01/2025 2:53 PM CDT Liat Potts MD LAB BLOOD ORDERABLES Aracelis alvarenga Result [facility] ([place]) 1 [facility] [place] [address] * (ABNORMAL) Comprehensive metabolic panel (06/01/2025 2:49 PM CDT) Sodium 138 135 - 145 mmol/L [facility] ([place]) Potassium, pl 4.0 3.3 - 4.9 mmol/L [facility] ([place]) Chloride 104 97 - 110 mmol/L [facility] ([place]) CO2 19(L) 22 - 32 mmol/L [facility] ([place]) Anion gap 15 2 - 15 mmol/L [facility] ([place]) BUN 11 6 - 25 mg/dL [facility] ([place]) Creatinine 1.19(H) 0.60 - 1.10 mg/dL [facility] ([place]) Glucose 255(H) 70 - 199 mg/dL [facility] ([place]) Comment: Interpretive Data Fasting [...] classification and Diagnosis of Diabetes Diabetes Care 2022; 46: S19-S40. Current interpretive data was last [...] ORDERABLES Aracelis l Result Performing Organization Address City/[facility]/ZIP Co de Phone Number DARINEL RICHTER ([place]) 1 [facility] [address] [place] [address] * (ABNORMAL) POCT glucose (06/01/2025 2:38 PM CDT) Glucose, POC 246(H) 70 - 199 mg/dL Blood 06/01/2025 2:38 PM CDT 06/01/2025 2:38 PM CDT Velia Crowe MD LAB POCT ORDERABLES - DEVICE Fi nal Result DARINEL RICHTER ([place]) [address] [facility] [place] [address] * (ABNORMAL) POCT glucose (05/31/2025 11:42 AM CDT) Glucose, POC 229(H) 70 - 199 mg/dL Blood 05/31/2025 11:4 2 AM CDT 05/31/2025 11:42 AM CDT Beverly Nida [place] DO LAB POCT ORDERABLES - DE VICE Final Result Performing Organization Address City/[facility]/ZIP Co de Phone Number DARINEL RICHTER ([place]) 1 [facility] [address] [place] [address] * eGFR (05/31/2025 10:33 AM CDT) eGFR [...] Result DARINEL RICHTER ([place]) 1 [facility] [place] [address] * (ABNORMAL) Differential, auto (05/31/2025 10:33 AM CDT) Neutrophil abs 5.67 1.50 - 6.50 K/cumm Imm gran abs 0.36(H) 0.00 - 0.10 K/cumm DARINEL RICHTER ([place]) Lymphocyte abs 3.50(H) 0.80 - 3.30 [...] Eosinophil pct 6.6 % [facility] ([place]) Comment: Interpretive Data Percent cell count reference [...] Result [facility]INEL [facility] ([place]) 1 [facility] Department [place] [address] * (ABNORMAL) CBC with auto differential (05/31/2025 [...] - 0.01 K/cumm [facility] ([place]) Blood 05/31/2025 10:3 3 AM CDT 05/31/2025 11:00 AM CDT Beverly Goff DO LAB BLOOD ORDERABLES Fin al Result DARINEL RICHTER ([place]) 1 [facility] Department [place] [address] * Phosphorus (05/31/2025 10:33 AM CDT) Phosphorus, pl 2.7 2.3 - 4.5 mg/dL [facility] ([place]) Blood 05/31/2025 10:3 3 AM CDT 05/31/2025 11:00 AM CDT Beverly Goff DO LAB BLOOD ORDERABLES Fin al Result DARINEL RICHTER ([place]) 1 [facility] Department [place] [address] * Magnesium (05/31/2025 10:33 AM CDT) Magnesium 1.5 1.4 - 2.5 mg/dL [facility] ([place]) Blood 05/31/2025 10:3 3 AM CDT 05/31/2025 11:00 AM CDT Beverly Goff LAB BLOOD ORDERABLES Fin al Result Performing Organization Address [facility] de Phone Number DARINEL RICHTER ([place]) 1 [facility] [place] [address] * (ABNORMAL) Comprehensive metabolic panel (05/31/2025 10:33 AM CDT) Sodium 136 135 - 145 mmol/L [facility] ([place]) Potassium, pl 3.5 3.3 - 4.9 mmol/L [facility] ([place]) Chloride 106 97 - 110 mmol/L [facility] ([place]) CO2 17(L) 22 - 32 mmol/L [facility] ([place]) Anion gap 13 2 - 15 mmol/L [facility] ([place]) BUN 9 6 - 25 mg/dL [facility] ([place]) Creatinine 0.86 0.60 - 1.10 mg/dL [facility] ([place]) Glucose 228(H) 70 - 199 mg/dL [facility] ([place]) Comment: Interpretive Data Fasting [...] Result DARINEL RICHTER ([place]) 1 [facility] [address] [place] [address] * POCT glucose (05/31/2025 8:02 AM CDT) Glucose, POC 155 70 - 199 mg/dL Blood 05/31/2025 8:02 AM CDT 05/31/2025 8:02 AM CDT Beverly Goff DO LAB POCT ORDERABLES - DE VICE Final Result DARINEL RICHTER ([place]) 1 [facility] [address] [place] [address] * POCT glucose (05/31/2025 2:26 AM CDT) Glucose, POC 140 70 - 199 mg/dL Blood 05/31/2025 2:26 AM CDT 05/31/2025 2:26 AM CDT Beverly Goff DO LAB POCT ORDERABLES - DE VICE Final Result DARINEL RICHTER ([place]) 1 [facility] [place] [address] * POCT glucose (05/30/2025 7:50 PM CDT) Glucose, POC 185 70 - 199 mg/dL Blood 05/30/2025 7:50 PM CDT 05/30/2025 7:50 PM CDT Beverly Goff DO LAB POCT ORDERABLES - DE VICE Final Result DARINEL RICHTER ([place]) 1 [facility] [place] [address] * POCT glucose (05/30/2025 5:57 PM CDT) Glucose, POC 181 70 - 199 mg/dL Blood 05/30/2025 5:57 PM CDT 05/30/2025 5:57 PM CDT Beverly Goff DO LAB POCT ORDERABLES - DE VICE Final Result DARINEL RICHTER ([place]) 1 [facility] [place] [address] * POCT glucose (05/30/2025 11:55 AM CDT) Glucose, POC 144 70 - 199 mg/dL Blood 05/30/2025 11:5 5 AM CDT 05/30/2025 11:55 AM CDT Beverly Goff DO LAB POCT ORDERABLES - DE VICE Final Result DARINEL RICHTER ([place]) 1 [facility] [place] [address] * POCT glucose (05/30/2025 8:18 AM CDT) Glucose, POC 174 70 - 199 mg/dL Blood 05/30/2025 8:18 AM CDT 05/30/2025 8:18 AM CDT Beverly Alva Denver DO LAB POCT ORDERABLES - DE VICE Final Result Performing Organization Address City/[facility]/ZIP Co de Phone Number DARINEL RICHTER ([place]) 1 [facility] [place] [address] * eGFR (05/30/2025 5:05 AM CDT) eGFR [...] AM CDT 05/30/2025 5:32 AM CDT Beverly Alva Appota DO LAB BLOOD ORDERABLES Fin al Result DARINEL RICHTER ([place]) 1 [facility] Department [place] [address] * (ABNORMAL) Differential, auto (05/30/2025 5:05 AM [...] Result [facility]EL [facility] ([place]) 1 [facility] [place] [address] * (ABNORMAL) CBC with auto differential (05/30/2025 [...] 14.9 % [facility] ([place]) RDW SD 43.9 35.7 - 48.1 fL [facility] ([place]) NRBC abs 0.00 0.00 - 0.01 K/cumm [facility] ([place]) Blood 05/30/2025 5:05 AM CDT 05/30/2025 5:30 AM CDT Beverly Goff DO LAB BLOOD ORDERABLES Fin al Result [facility]EL [facility] ([place]) 1 [facility] [place] [address] * Phosphorus (05/30/2025 5:05 AM CDT) Phosphorus, pl 2.6 2.3 - 4.5 mg/dL [facility] ([place]) Blood 05/30/2025 5:05 AM CDT 05/30/2025 5:32 AM CDT [facility] Nida Appota DO LAB BLOOD ORDERABLES Fin al Result DARINEL RICHTER ([place]) 1 [facility] [place] [address] * Magnesium (05/30/2025 5:05 AM CDT) Pathologist [facility] Magnesium 1.7 1.4 - 2.5 mg/dL [facility] ([place]) Blood 05/30/2025 5:05 AM CDT 05/30/2025 5:32 AM CDT [facility]ida [facility] BLOOD ORDERABLES Fin al Result Performing Organization Address City/[facility] Co de Phone Number [facility] 1 [facility] [place] [address] * (ABNORMAL) Comprehensive metabolic panel (05/30/2025 5:05 AM CDT) Pathologist [facility] Sodium 138 135 - 145 mmol/L [facility] ([place]) Potassium, pl 3.4 3.3 - 4.9 mmol/L [facility] ([place]) Chloride 108 97 - 110 mmol/L [facility] ([place]) CO2 16(L) 22 - 32 mmol/L [facility] ([place]) Anion gap 14 2 - 15 mmol/L [facility] ([place]) BUN 10 6 - 25 mg/dL [facility] ([place]) Creatinine 0.86 0.60 - 1.10 [...] BLOOD ORDERABLES Fin al Result DARINEL RICHTER ([place]) 1 [facility] [address] [place] [address] * POCT glucose (05/30/2025 2:40 AM CDT) Glucose, POC 156 70 - 199 mg/dL Blood 05/30/2025 2:40 AM CDT 05/30/2025 2:40 AM CDT Beverly Goff DO LAB POCT ORDERABLES - DE VICE Final Result DARINEL RICHTER ([place]) 1 [facility] [address] [place] [address] * POCT glucose (05/29/2025 9:38 PM CDT) Glucose, POC 170 70 - 199 mg/dL Blood 05/29/2025 9:38 PM CDT 05/29/2025 9:38 PM CDT Beverly Goff DO LAB POCT ORDERABLES - DE VICE Final Result DARINEL RICHTER ([place]) 1 [facility] [place] [address] * POCT glucose (05/29/2025 5:09 PM CDT) Glucose, POC 139 70 - 199 mg/dL Blood 05/29/2025 5:09 PM CDT 05/29/2025 5:09 PM CDT Beverly Goff DO LAB POCT ORDERABLES - DE VICE Final Result Performing Organization Address City/[facility]/ZIP Co de Phone Number DARINEL RICHTER ([place]) 1 [facility] [place] [address] * POCT glucose (05/29/2025 11:38 AM CDT) Glucose, POC 153 70 - 199 mg/dL Blood 05/29/2025 11:3 8 AM CDT 05/29/2025 11:38 AM CDT Beverly Goff DO LAB POCT ORDERABLES - DE VICE Final Result Performing Organization Address City/[facility]/ZIP Co de Phone Number DARINEL RICHTER ([place]) 1 [facility] [place] [address] * eGFR (05/29/2025 9:17 AM CDT) eGFR 70 >=60 mL/min/1. 73 m2 Comment: [...] BLOOD ORDERABLES Fin al Result DARINEL RICHTER ([place]) 1 [facility] Department [place] [address] * (ABNORMAL) Differential, auto (05/29/2025 9:17 AM [...] Result D[facility]INEL [facility] ([place]) 1 [facility] Department [place] [address] * (ABNORMAL) CBC with auto differential (05/29/2025 9:17 AM CDT) WBC 11.69(H) 3.80 - 9.90 K/cumm Hgb 12.2 11.9 - 15.5 g/dL [facility] ([place]) Hct 37.1 35.6 - 45.5 % [facility] ([place]) Plt 354 150 - 400 K/cumm [facility] ([place]) MPV 9.2 9.1 - 12.3 fL [facility] ([place]) RBC 4.43 3.90 - 5.20 M/cumm [facility] ([place]) MCV 83.7 81.3 - 96.4 fL [facility] MCH 27.5 27.1 - 33.3 pg [facility] ([place]) MCHC 32.9 32.3 - 35.7 g/dL [facility] ([place]) RDW CV 14.8 11.1 - 14.9 % [facility] ([place]) RDW SD 44.7 35.7 - 48.1 fL [facility] ([place]) NRBC abs 0.00 0.00 - 0.01 K/cumm [facility] ([place]) Blood 05/29/2025 9:17 AM CDT 05/29/2025 9:25 AM CDT Beverly Goff DO LAB BLOOD ORDERABLES Fin al Result [facility] ([place]) 1 [facility] [place] [address] * Hemochromatosis HFE Gene Analysis (05/29/2025 9:17 AM CDT) HFE Genotype Negative [facility] Comment:Testing performed by : [facility], [address] [place] [address]., [address] HFE p.C282Y Negative DARINEL A ([place]) Comment:Testing performed by : [facility], [address] [place]., [address] HFE p.H63D Negative DARINEL [facility] ([place]) Comment:Testing performed by : [facility], [address] [place] [address]., [address] HFE Interpretation This genotype suggests low risk [...] DARINEL RICHTER ([place]) Comment:Testing performed by : [facility], [address] [place]., [address] HFE Specimen Whole Blood DOROTHY RICHTER ([place]) Comment:Testing performed by : [facility], [address] [place]., [address] HFE Result Review Final report reviewed by: TI Connolly([facility]) Digital Editor, on 06/06/2025 15:36:02 CDT. DARINEL RICHTER ([place]) Comment: Interpretive Data Method: This assay detects the two variants in the HFE gene, p.C282Y (NM_000410.2: c.845G>A) and p.H63D (NM_000410.2: c.187C>G), that are commonly associated with HH. The variants are detected by a multiplex PCR based assay performed on the [employer] KIDOZ 7500 Fast Dx Real-Time PCR instrument. Limitations: [...] determined by the [facility] Diagn[facility] at [facility] in a manner consistent with CLIA requirements. This test has not been cleared or approved by the U.S. Food and Drug Administration. References: Armani ROJAS, Wallace LC, Dedrick CC, et al. Ghql-gortlwql-cemndar disease in HFE hereditary hemochromatosis. N Engl J Med. 2008;358:221 3 0. Elia BR, Danny PC, Johana KV, et al. Diagnosis and management of hemochromatosis: 2011 practice guideline by the [place] Association for the Study of Liver Diseases. Hepatology. 2011;54:328 4 3. Milton MELVIN, Rocky CQ, Analilia RT. HFE gene: structure, function, [...] hemochromatosis mutation. Gastroenterology. 2002;122:646 5 1. Wallace LC, Yahaira NA, Shemar GW, et al. HFE C282Y/H63D compound heterozygotes are at low risk of hemochromatosis-related morbidity. Hepatology. 2009;50:94 1 01. Haile EH, Ty G, Faheem W. HFE gene and hereditary hemochromatosis: a HuGE review. Human Genome Epidemiology. Am J Epidemiol. 2001 Aug ; 154(3):193-206. Osmar A, Elisabeth C, Russell L, et al. 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 Gastroenterology. 2000;119:441 5 . Polo EP, Judith BA, Mackey EL, et al. Screening for hereditary hemochromatosis: a systematic review for the U.S. Preventive Services Task Force. Emma Clinical Practitioner Med. 2006;145:209 2 3. This test was performed at: [facility], [address], [facility]#[id number], Emma Ramon, Ph.D., [place], [address], [place] Current interpretive data was last revised 2021. Testing performed by: [facility], [address] [facility], [place]., [address] Blood 05/29/2025 9:17 AM CDT 05/29/2025 1:46 PM CDT Bobbi Pitt MD LAB GENETIC TESTING Final Result Performing Organization Address [facility] Co de Phone Number DARINEL RICHTER ([place]) 1 [facility] [place] [address] [facility] * Phosphorus (05/29/2025 9:17 AM CDT) Pathologist [facility] Phosphorus, pl 2.9 2.3 - 4.5 mg/dL [facility] ([place]) Blood 05/29/2025 9:17 AM CDT 05/29/2025 9:25 AM CDT Beverly Goff DO LAB BLOOD ORDERABLES Fin al Result Performing Organization Address [facility] Co de Phone Number DARINEL RICHTER ([place]) 1 [facility] [place] [address] * (ABNORMAL) Magnesium (05/29/2025 9:17 AM CDT) [facility] Magnesium 1.3(L) 1.4 - 2.5 mg/dL [facility] ([place]) Blood 05/29/2025 9:17 AM CDT 05/29/2025 9:25 AM CDT Beverly Goff DO LAB BLOOD ORDERABLES Fin al Result Performing Organization Address [facility] Co de Phone Number DARINEL RICHTER ([place]) 1 [facility] [place] [address] * (ABNORMAL) Comprehensive metabolic panel (05/29/2025 9:17 AM CDT) Sodium 136 135 - 145 mmol/L [facility] ([place]) Potassium, pl 3.1(L) 3.3 - 4.9 mmol/L [facility] ([place]) Chloride 106 97 - 110 mmol/L [facility] ([place]) CO2 15(L) 22 - 32 [...] Result DARINEL [facility] ([place]) 1 [facility] Department [place] [address] * POCT glucose (05/29/2025 8:07 AM CDT) Glucose, POC 105 70 - 199 mg/dL Blood 05/29/2025 8:07 AM CDT 05/29/2025 8:07 AM CDT Beverly Goff DO LAB POCT ORDERABLES - DE VICE Final Result DARINEL RICHTER ([place]) 1 [facility] [place] [address] * POCT glucose (05/29/2025 2:11 AM CDT) Glucose, POC 119 70 - 199 mg/dL Blood 05/29/2025 2:11 AM CDT 05/29/2025 2:11 AM CDT Beverly Goff DO LAB POCT ORDERABLES - DE VICE Final Result Performing Organization Address [facility] Co de Phone Number DARINEL RICHTER ([place]) 1 [facility] [place] [address] * POCT glucose (05/28/2025 11:05 PM CDT) Glucose, POC 121 70 - 199 mg/dL Blood 05/28/2025 11:0 5 PM CDT 05/28/2025 11:05 PM CDT Beverly Goff DO LAB POCT ORDERABLES - DE VICE Final Result Performing Organization Address City/[facility] Co de Phone Number DARINEL RICHTER ([place]) 1 [facility] [place] [address] * POCT glucose (05/28/2025 4:39 PM CDT) Glucose, POC 127 70 - 199 mg/dL Blood 05/28/2025 4:39 PM CDT 05/28/2025 4:39 PM CDT Beverly Goff DO LAB POCT ORDERABLES - DE VICE Final Result DARINEL RICHTER ([place]) 1 [facility] [place] [address] * POCT glucose (05/28/2025 11:59 AM CDT) Glucose, POC 183 70 - 199 mg/dL Blood 05/28/2025 11:5 9 AM CDT 05/28/2025 11:59 AM CDT Beverly Goff DO LAB POCT ORDERABLES - DE VICE Final Result DARINEL RICHTER ([place]) 1 [facility] [place] [address] * POCT glucose (05/28/2025 8:34 AM CDT) Glucose, POC 143 70 - 199 mg/dL Blood 05/28/2025 8:34 AM CDT 05/28/2025 8:34 AM CDT Beverly Goff DO LAB POCT ORDERABLES - DE VICE Final Result DARINEL RICHTER ([place]) 1 [facility] [place] [address] * POCT glucose (05/28/2025 7:54 AM CDT) Glucose, POC 126 70 - 199 mg/dL Blood 05/28/2025 7:54 AM CDT 05/28/2025 7:54 AM CDT Beverly Goff DO LAB POCT ORDERABLES - DE VICE Final Result DARINEL RICHTER ([place]) 1 [facility] [place] [address] * eGFR (05/28/2025 4:27 AM CDT) eGFR [...] 4:27 AM CDT 05/28/2025 5:12 AM CDT us Beverly Goff DO LAB BLOOD ORDERABLES Fin al Result DARINEL [facility] ([place]) 1 [facility] [place] [address] * (ABNORMAL) Differential, auto (05/28/2025 4:27 AM [...] Neutrophil pct 60.7 % [facility] ([place]) Comment: Interpretive [...] revised on 2018. Monocyte pct 7.8 % [facility] ([place]) Comment: Interpretive Data [...] Result DARINEL RICHTER ([place]) 1 [facility] [place] [address] * (ABNORMAL) CBC with auto differential (05/28/2025 4:27 AM CDT) WBC 12.90(H) 3.80 - 9.90 K/cumm Hgb 12.2 11.9 - 15.5 g/dL DARINEL RICHTER ([place]) Hct 36.9 35.6 - 45.5 % [...] AM CDT 05/28/2025 5:12 AM CDT Beverly Alva Appota DO LAB BLOOD ORDERABLES Fin al Result [facility] ([place]) 1 [facility] [address] [place] [address] * Phosphorus (05/28/2025 4:27 AM CDT) Phosphorus, pl 2.6 2.3 - 4.5 mg/dL [facility] ([place]) Blood 05/28/2025 4:27 AM CDT 05/28/2025 5:12 AM CDT Polyera DO LAB BLOOD ORDERABLES Fin al Result [facility]EL [facility] ([place]) 1 [facility] [address] [place] [address] * Magnesium (05/28/2025 4:27 AM CDT) Magnesium 1.4 1.4 - 2.5 mg/dL [facility] ([place]) Blood 05/28/2025 4:27 AM CDT 05/28/2025 5:12 AM CDT Beverly Goff DO LAB BLOOD ORDERABLES Fin al Result [facility]EL [facility] ([place]) 1 [facility] Department [place] [address] * (ABNORMAL) Comprehensive metabolic panel (05/28/2025 4:27 AM CDT) Sodium 139 135 - 145 mmol/L [facility] ([place]) Potassium, pl 3.5 3.3 - 4.9 mmol/L [facility] ([place]) Chloride 110 97 - 110 mmol/L [facility] ([place]) CO2 13(L) 22 - 32 mmol/L [facility] ([place]) Anion gap 16(H) 2 - 15 mmol/L [facility] ([place]) BUN 12 6 - 25 mg/dL [facility] ([place]) [...] Fin al Result DARINEL RICHTER ([place]) 1 [facility] [place] [address] * POCT glucose (05/28/2025 2:21 AM CDT) Glucose, POC 119 70 - 199 mg/dL Blood 05/28/2025 2:21 AM CDT 05/28/2025 2:21 AM CDT Beverly Goff DO LAB POCT ORDERABLES - DE VICE Final Result Performing Organization Address City/[facility]/ZIP Co de Phone Number DARINEL RICHTER ([place]) 1 [facility] [place] [address] * POCT glucose (05/27/2025 9:08 PM CDT) Glucose, POC 133 70 - 199 mg/dL Blood 05/27/2025 9:08 PM CDT 05/27/2025 9:08 PM CDT Beverly Goff DO LAB POCT ORDERABLES - DE VICE Final Result Performing Organization Address City/[facility]/ZIP Co de Phone Number DARINEL RICHTER ([place]) 1 [facility] [place] [address] * (ABNORMAL) Hemoglobin and hematocrit (05/27/2025 8:35 PM CDT) Hgb 11.1(L) 11.9 - 15.5 g/dL Hct 34.7(L) 35.6 - 45.5 % DARINEL RICHTER ([place]) Blood 05/27/2025 8:35 PM CDT 05/27/2025 8:38 PM CDT Narrative DARINEL RICHTER ([place]) - 05/27/2025 8:40 PM CDT Attempted x1. Pt. was extremely agitated and confused. Will give her some time and try recollection Beverly Goff DO LAB BLOOD ORDERABLES Fin al Result DARINEL RICHTER ([place]) 1 [facility] [place] [address] * POCT glucose (05/27/2025 5:09 PM CDT) Glucose, POC 116 70 - 199 mg/dL Blood 05/27/2025 5:09 PM CDT 05/27/2025 5:09 PM CDT Beverly Goff LAB POCT ORDERABLES - DE VICE Final Result Performing Organization Address [facility] Co de Phone Number DARINEL RICHTER ([place]) 1 [facility] [place] [address] * (ABNORMAL) Hemoglobin and hematocrit (05/27/2025 3:43 PM CDT) Hgb 10.9(L) 11.9 - 15.5 g/dL Hct 34.3(L) 35.6 - 45.5 % DARINEL RICHTER ([place]) Blood 05/27/2025 3:43 PM CDT 05/27/2025 3:46 PM CDT Beverly [facility] DO LAB BLOOD ORDERABLES Fin al Result Performing Organization Address City/[facility]/ZIP Co de Phone Number DARINEL RICHTER ([place]) 1 [facility] [place] [address] * POCT glucose (05/27/2025 12:02 PM CDT) Glucose, POC 118 70 - 199 mg/dL Blood 05/27/2025 12:0 2 PM CDT 05/27/2025 12:02 PM CDT Beverly Nida Denver DO LAB POCT ORDERABLES - DE VICE Final Result Performing Organization Address [facility]/ZIP Co de Phone Number DARINEL RICHTER ([place]) 1 [facility] [place] [address] * (ABNORMAL) Hemoglobin and hematocrit (05/27/2025 11:34 AM CDT) Hgb 9.4(L) 11.9 - 15.5 g/dL Hct 28.5(L) 35.6 - 45.5 % DARINEL RICHTER ([place]) Blood 05/27/2025 11:3 4 AM CDT 05/27/2025 11:45 AM CDT Beverly Goff LAB BLOOD ORDERABLES Fin al Result Performing Organization Address [facility] Co de Phone Number DARINEL RICHTER ([place]) 1 [facility] [place] [address] * XR Abdomen 1 View AP (05/27/2025 [...] Jacob Montague D.O. PS: PS Report ID: [id number] Reading Location: [id number] Procedure Note Jacob Montague DO - 05/27/2025 [...] Jacob Montague D.O. PS: PS Report ID: [id number] Reading Location: [id number] Beverly Goff DO IMG XR PROCEDURES Final Result * POCT glucose (05/27/2025 8:04 AM CDT) Glucose, POC 100 70 - 199 mg/dL Blood 05/27/2025 8:04 AM CDT 05/27/2025 8:04 AM CDT Beverly Goff DO LAB POCT ORDERABLES - DE VICE Final Result [facility]INEL [facility] ([place]) 1 [facility] [place] [address] * (ABNORMAL) Fibro Test-Acti Test (05/27/2025 7:05 AM CDT) Pathologist [facility] FibroTest Score 0.[address] [facility] Lab FibroTest Stage F1 RYANNE RICHTER ([place]) FibroTest Interpretation SEE BELOW DARINEL RICHTER ([place]) Comment: RESULT: minimal fibrosis FibroTest estimates liver fibrosis FibroTest Score Stage Interpretation 0.00-0.21 F0 no fibrosis 0.21-0.27 F0-F1 no fibrosis 0.27-0.31 F1 minimal fibrosis 0.31-0.48 F1-F2 minimal fibrosis 0.48-0.58 F2 moderate fibrosis 0.58-0.72 F3 advanced fibrosis 0.72-0.74 F3-F4 advanced fibrosis 0.74-1.00 F4 severe fibrosis (Cirrhosis) ActiTest Score 0.35 DOROTHY RICHTER ([place]) ActiTest Grade A1 DOROTHY RICHTER ([place]) ActiTest Interpretation SEE BELOW DARINEL RICHTER ([place]) Comment: RESULT: minimal activity ActiTest estimates necroinflammatory activity ActiTest Score Grade Interpretation 0.00-0.17 A0 no activity 0.17-0.29 A0-A1 no activity 0.29-0.36 A1 minimal activity 0.36-0.52 A1-A2 minimal activity 0.52-0.60 A2 significant activity 0.60-0.62 A2-A3 significant activity 0.62-1.00 A3 severe activity FibroTest-ActiTest Comment See Comment DARINEL RICHTER ([place]) Comment: The reliability of results is dependent on compliance with the preanalytical and analytical conditions recommended by [employer]. The tests have to be deferred for: [...] developed and its performance characteristics determined by [facility] in a manner consistent with CLIA requirements. This test has not been cleared or approved by the U.S. Food and Drug Administration. [employer] Serial Number [id number] [facility] ([place]) APOLIPOPROTEIN A1 70(L) >=140 mg/dL [facility] ([place]) Dwxyr-1-Ijqupcvibwnbm, Ser 163 100 - 280 mg/dL [facility] ([place]) Haptoglobin, S 276(H) 30 - 200 mg/dL [facility] ([place]) Alanine Aminotransferase (ALT), S 60(H) 7 - 45 Units/L [facility] ([place]) Gamma Glutamyltransferase (GGT), S 80(H) 5 - 36 Units/L [facility] ([place]) Bilirubin, Total, S 0.3 0.0 - 1.2 mg/dL [facility] ([place]) Comment: Test Performed by: [facility] [address] [place] [address] Tech Ed Teacher: Salvatore Larson Ph.D.; CLIA# [id number] Test Performed by: [address] [address] Tech Ed Teacher: Salvatore Larson Ph.D.; CLIA# [id number] Blood 05/27/2025 7:05 AM CDT 05/27/2025 7:15 AM CDT us Brinda RIGGINS LAB BLOOD ORDERABLES Fin al Result [facility] ([place]) 1 [facility] Department [place] [address] G[facility] ref Lab * ANOOP ab ql w/rflx [...] last revised on 2020. Testing performed by: [facility], [address] [place] [address] Blood 05/27/2025 7:05 AM CDT 05/27/2025 10:22 AM CDT us Brinda RIGGINS LAB BLOOD ORDERABLES Fin al Result DARINEL RICHTER ([place]) 1 [facility] Department of Laboratories [place], [place] [address] * (ABNORMAL) eGFR (05/27/2025 7:05 AM CDT) [...] BLOOD ORDERABLES Fin al Result [facility] ([place]) 1 [facility] Department [place] [address] * (ABNORMAL) Differential, auto (05/27/2025 7:05 AM CDT) Neutrophil abs 7.77(H) 1.50 - 6.50 K/cumm Imm gran abs 0.08 0.00 - 0.10 K/cumm [facility] ([place]) Lymphocyte abs 2.79 0.80 - 3.30 K/cumm [facility] ([place]) Monocyte abs 0.73 0.20 - 0.80 K/cumm [facility] ([place]) Eosinophil abs 0.78(H) 0.00 - 0.50 K/cumm [facility] ([place]) Basophil abs 0.07 0.00 - 0.10 K/cumm [...] ORDERABLES Fin al Result Performing Organization Address City/[facility]/ZIP Co de Phone Number DARINEL [facility] ([place]) 1 [facility] [place] [address] * Smooth muscle antibody, qualitative (05/27/2025 7:05 AM CDT) Anti-smooth muscle Negative Negative Comment:Testing performed by : [facility], [address] [place] [address]., [id number] Blood 05/27/2025 7:05 AM CDT 05/27/2025 10:24 AM CDT us Brinda RIGGINS LAB BLOOD ORDERABLES Fin al Result [facility] ([place]) 1 [facility] [place] [address] * Mitochondrial antibodies, qualitative (05/27/2025 7:05 AM CDT) Anti-mitochond rial Negative Negative Comment:Testing performed by : [facility], [address] [place] [address]., [id number] Blood 05/27/2025 7:05 AM CDT 05/27/2025 10:24 AM CDT Brinda RIGGINS LAB BLOOD ORDERABLES Fin al Result DARINEL RICHTER ([place]) 1 [facility] [place] [address] * (ABNORMAL) Iron profile w/ IBC (05/27/2025 7:05 AM CDT) Pathologist [facility] Iron 113 35 - 145 mcg/dL TIBC 171(L) 250 - 400 mcg/dL [facility] ([place]) Transferrin saturation 66(H) 20 - 50 % [facility] ([place]) Blood 05/27/2025 7:05 AM CDT 05/27/2025 7:13 AM CDT Brinda RIGGINS LAB BLOOD ORDERABLES Fin al Result Performing Organization Address City/[facility]/ZIP Co de Phone Number DARINEL RICHTER ([place]) 1 [facility] [place] [address] * CMV, IgG and IgM antibodies Blood (05/27/2025 7:05 AM CDT) Pathologist [facility] CMV IgG Negative Negative Comment: Interpretive Data [...] or recent CMV infection. Testing performed by: [facility], [address] [place]., [address] CMV IgM Negative Negative [facility] ([place]) Comment: Interpretive Data Negative - Negative CMV [...] (primary, reactivation, or reinfection). Testing performed by: [facility], [address] [place] [address] Blood 05/27/2025 7:05 AM CDT 05/27/2025 10:17 AM CDT Brinda RIGGINS LAB MICROBIOLOGY - [facility] ORDERABLES Final Result [facility] ([place]) 1 [facility] Department [place] [address] * (ABNORMAL) CBC with auto differential (05/27/2025 7:05 AM CDT) WBC 12.22(H) 3.80 - 9.90 K/cumm Hgb 9.8(L) 11.9 - 15.5 g/dL [facility] ([place]) Hct 29.8(L) 35.6 - 45.5 % [facility] ([place]) Plt 263 150 - 400 K/cumm [facility] ([place]) MPV 10.0 9.1 - 12.3 fL [facility] ([place]) RBC 3.50(L) 3.90 - 5.20 M/cumm [facility] ([place]) MCV 85.1 81.3 - 96.4 fL [facility] ([place]) MCH 28.0 27.1 - 33.3 pg [facility] ([place]) MCHC 32.9 32.3 - 35.7 g/dL [facility] ([place]) RDW CV 15.4(H) 11.1 - 14.9 % [facility] ([place]) RDW SD 47.8 35.7 - 48.1 fL [facility] ([place]) NRBC abs 0.00 0.00 - 0.01 K/cumm [facility] ([place]) Blood 05/27/2025 7:05 AM CDT 05/27/2025 7:13 AM CDT Beverly Goff DO LAB BLOOD ORDERABLES Fin al Result DARINEL RICHTER ([place]) 1 [facility] [address] [place] [address] * (ABNORMAL) Willa-Chavez virus (EBV) antibody panel Blood (05/27/2025 7:05 AM CDT) EBV nuclear Ab Positive(A) Negative Comment: Indicates the presence of detectable IgG antibody to EBV Nuclear Antigen. Testing performed by: [facility], [address] [place]., [address] EBV VCA IgG Positive(A) Negative DARINEL RICHTER ([place]) Comment: Indicates the presence of antibody; 90% of the adult population will have been infected with EBV sometime in the past. Testing performed by: [facility], [address] [place]., [address] EBV VCA IgM Negative Negative DARINEL Sorensen ([place]) Comment: No detectable IgM antibody to EBV-VCA. A negative result indicates no current infection with EBV. If clinical suspicion of acute EBV infection is present, testing should be repeated after one week. Testing performed by: [facility], [address] [place]., [address] EBV interp Past Infection DARINEL [facility] ([place]) Comment:Testing performed by : [facility], [address] [place] [address]., [id number] Blood 05/27/2025 7:05 AM CDT 05/27/2025 10:17 AM CDT Brinda RIGGINS LAB MICROBIOLOGY - GENER AL ORDERABLES Final Result DARINEL RICHTER ([place]) 1 [facility] [place] [address] * Celiac reflex panel (05/27/2025 7:05 AM CDT) IgA 62 61 - 356 mg/dL [facility] Celiac disease interpretation See Comment DARINEL RICHTER ([place]) Comment: See Comment: Negative serology. Celiac disease unlikely. However, approximately 10% of patients with celiac disease are seronegative. Also, patients who are already adhering to a gluten-free diet may be seronegative. If celiac disease is highly clinically suspected, consider HLA-DQ typing. Test Performed by: [place] [address] Tech Ed Teacher: Salvatore Larson Ph.D.; CLIA# [id number] Blood 05/27/2025 7:05 AM CDT 05/27/2025 7:13 AM CDT Brinda RIGGINS LAB BLOOD ORDERABLES Fin al Result Performing Organization Address City/[facility] Co de Phone Number DARINEL RICTHER ([place]) [address] [place] [address] [facility] * (ABNORMAL) Ewcwy-8-[id number] (05/27/2025 7:05 AM CDT) alpha-1 antitrypsin 208(H) 90 - 200 mg/dL Comment:Testing performed by : [facility], [address] [place]., [address] Blood 05/27/2025 7:05 AM CDT 05/27/2025 10:22 AM CDT Brinda RIGGINS LAB BLOOD ORDERABLES Fin al Result DARINEL RICHTER ([place]) 1 [place] [address] * Tissue transglutaminase IgA (TGG-IgA Ab) (05/27/2025 7:05 AM CDT) TTG ab, IgA <1.2 <4.0 (Negative) units/mL Comment: Test Performed by: [address] [address] Tech Ed Teacher: Salvatore Larson Ph.D.; CLIA# [id number] Interpretive data Negative: <15 units/mL Positive: > or equal to 15 units/mL Current interpretive data was last revised on 2017. Testing performed by: [facility], [address] [place] [address]., [address] Blood 05/27/2025 7:05 AM CDT 05/27/2025 7:13 AM CDT Brinda RIGGINS LAB BLOOD ORDERABLES Fin al Result Performing Organization Address City/[facility] Co de Phone Number DARINEL [facility] ([place]) [address] [place] [address] [place] [address] * Ceruloplasmin (05/27/2025 7:05 AM CDT) Ceruloplasmin 32.8 16.0 - 45.0 mg/dL Comment:Testing performed by : [facility], [address] [place] [address]., [id number] Blood 05/27/2025 7:05 AM CDT 05/27/2025 10:22 AM CDT Brinda RIGGINS LAB BLOOD ORDERABLES Fin al Result Performing Organization Address City/[facility] Co de Phone Number DARINEL [facility] ([place]) [address] [place] [address] [place] [address] * Zsksw-1-Xvhsqndjium, Tumor Marker (05/27/2025 7:05 AM CDT) alpha [...] >1 year 0.0 8.3 ng/ml References Nikky Laws et al. J. Ped Surg 1978;13:155-156 Redd Angel et al. Clin Chem Lab Med 2018;57:783-797 Joe Prakash et al. Clin Chem 2014;4810-2022. Current interpretive data was last revised 2022. Testing performed by: [facility], [address] [place]., [address] Blood 05/27/2025 7:05 AM CDT 05/27/2025 10:22 AM CDT Brinda RIGGINS LAB BLOOD ORDERABLES Fin al Result DARINEL RICHTER ([place]) 1 [facility] Department [place] [address] * Hepatitis panel, acute Blood (05/27/2025 7:05 AM CDT) Hep A IgM Nonreactive Nonreactive Comment: Interpretive Data: If Hep A IgM Ab is reported as Equivocal, a new sample should be drawn in two weeks for testing. Current interpretive data was last revised on 20. Testing performed by: [address] [address] Hep B core IgM Nonreactive Nonreactive Charline RICHTER ([place]) Comment: Interpretive Data If HepB Core IgM Ab is reported as Equivocal, a new sample should be drawn in two weeks for testing. Current interpretive data was last revised on 20. Testing performed by: [facility], [address] [place] [address]., [id number] Hep C Ab Nonreactive Nonreactive DARINEL RICHTER ([place]) Comment: Interpretive Data Nonreactive: Antibodies to HCV [...] last revised on 2020. Testing performed by: [facility], [address] [place] [address]., [address] HepBsAg Nonreactive Nonreactive DARINEL RICHTER ([place]) Comment:Testing performed by : [facility], [address] [place] [address]., [id number] Blood 05/27/2025 7:05 AM CDT 05/27/2025 9:12 AM CDT Brinda RIGGINS LAB MICROBIOLOGY - GENER AL ORDERABLES Final Result Performing Organization Address City/[facility]/ZIP Co de Phone Number DARINEL RICHTER ([place]) 1 [facility] [place] [address] * Phosphorus (05/27/2025 7:05 AM CDT) Phosphorus, pl 2.8 2.3 - 4.5 mg/dL Blood 05/27/2025 7:05 AM CDT 05/27/2025 7:13 AM CDT Beverly Goff DO LAB BLOOD ORDERABLES Fin al Result Performing Organization Address [facility] Co de Phone Number DARINEL RICHTER ([place]) 1 [facility] [place] [address] * Magnesium (05/27/2025 7:05 AM CDT) Magnesium 1.7 1.4 - 2.5 mg/dL Blood 05/27/2025 7:05 AM CDT 05/27/2025 7:13 AM CDT Beverly Goff DO LAB BLOOD ORDERABLES Fin al Result Performing Organization Address City/[facility]/ZIP Co de Phone Number DARINEL RICHTER ([place]) 1 [facility] [place] [address] * Folate (05/27/2025 7:05 AM CDT) Folic acid 15.3 >=5.0 ng/mL Comment:Slightly Hemolyzed S pecimen. Results may be affected. Blood 05/27/2025 7:05 AM CDT 05/27/2025 7:13 AM CDT Brinda RIGGINS LAB BLOOD ORDERABLES Fin al Result Performing Organization Address City/[facility]/ZIP Co de Phone Number [facility] ([place]) 1 [facility] [place] [address] * Vitamin B12 (05/27/2025 7:05 AM CDT) Vitamin B12 649 230 - 1,250 pg/mL Blood 05/27/2025 7:05 AM CDT 05/27/2025 7:13 AM CDT Brinda RIGGINS LAB BLOOD ORDERABLES Fin al Result Performing Organization Address [facility] Co de Phone Number [facility] ([place]) 1 [facility] [place] [address] * (ABNORMAL) Comprehensive metabolic panel (05/27/2025 7:05 AM CDT) Sodium 138 135 - 145 mmol/L Potassium, pl 2.8(C) 3.3 - 4.9 mmol/L [facility] ([place]) Comment:Critical Result call ed by [email or web address] at 2025-05-27 08:20:15. Result Read Back by Elizabeth Ramirez/coco Chloride 110 97 - 110 mmol/L [facility] ([place]) CO2 11(L) 22 - 32 mmol/L [facility] ([place]) Anion gap 17(H) 2 - 15 mmol/L [facility] ([place]) BUN 20 6 - 25 mg/dL [facility] ([place]) Creatinine 1.18(H) 0.60 - 1.10 mg/dL [facility] ([place]) Glucose 102 70 - 199 mg/dL [facility] ([place]) Comment: Interpretive Data Fasting glucose >/= [...] Fin al Result DARINEL RICHTER ([place]) 1 [facility] [place] [address] * POCT glucose (05/27/2025 2:11 AM CDT) [facility] Signature Glucose, POC 116 70 - 199 mg/dL Blood 05/27/2025 2:11 AM CDT 05/27/2025 2:11 AM CDT Beverly Goff DO LAB POCT ORDERABLES - DE VICE Final Result [facility] ([place]) 1 [facility] [place] [address] * Transfuse RBC (05/27/2025 12:20 AM CDT) Blood Beverly Nida [place] BLOOD TRANSFUSION ORDERA BLES Final Result DARINEL RICHTER ([place]) 1 [facility] [place] [address] * Transfuse RBC (05/26/2025 9:51 PM CDT) Blood Beverly Goff DO BLOOD TRANSFUSION ORDERA BLES Edited Result - Final DARINEL RICHTER ([place]) 1 [facility] [place] [address] * POCT glucose (05/26/2025 9:30 PM CDT) Glucose, POC 111 70 - 199 mg/dL Blood 05/26/2025 9:30 PM CDT 05/26/2025 9:30 PM CDT Beverly Goff DO LAB POCT ORDERABLES - DE VICE Final Result DARINEL RICHTER ([place]) 1 [facility] [place] [address] * Vancomycin level trough (05/26/2025 7:51 PM CDT) Vancomycin trough 11.0 10.0 - 20.0 mcg/mL Blood 05/26/2025 7:51 PM CDT 05/26/2025 7:54 PM CDT Maisha Ferrell MD LAB BLOOD ORDERABLES Fi nal Result DARINEL RICHTER ([place]) 1 [facility] [place] [address] * Prepare RBC: 2 Units (05/26/2025 5:40 PM CDT) Units requested 2 Units requested Ready [facility] ([place]) Unit Number [id number] Product code [id number] [facility] ([place]) Blood Expiration Date [id number] [facility] ([place]) Product Blood Type (for scanning) 6200 [facility] ([place]) Product Blood Type APOS [facility] ([place]) Dispense Status DISPENSED [facility] ([place]) Unit Number [id number] Product code [id number] [facility] ([place]) Blood Expiration Date [id number] [facility] ([place]) Product Blood Type (for scanning) 6200 [facility] ([place]) Product Blood Type APOS [facility] ([place]) Dispense Status DISPENSED [facility] ([place]) Blood 05/26/2025 5:40 PM CDT 05/26/2025 5:40 PM CDT Beverly Goff DO BLOOD BANK PRODUCT ORDER ALLAN Final Result Performing Organization Address City/[facility]/ZIP Co de Phone Number [facility] ([place]) 1 [facility] [address] [place] [address] * (ABNORMAL) Hemoglobin and hematocrit (05/26/2025 4:43 PM CDT) [facility] Hgb 6.4(C) 11.9 - 15.5 g/dL Comment:This result has been called to sara hogue danielle by [id number] on 05/26/2025 17:14:05, and has been read back. Hct 19.9(L) 35.6 - 45.5 % [facility] ([place]) Blood 05/26/2025 4:43 PM CDT 05/26/2025 4:50 PM CDT Beverly Goff DO LAB BLOOD ORDERABLES Fin al Result [facility] ([place]) 1 [facility] Department [place] [address] * POCT glucose (05/26/2025 4:24 PM CDT) Glucose, POC 165 70 - 199 mg/dL Blood 05/26/2025 4:24 PM CDT 05/26/2025 4:24 PM CDT Beverly Goff DO LAB POCT ORDERABLES - DE VICE Final Result DARINEL RICHTER ([place]) 1 [facility] [place] [address] * XR Abdomen 1 View AP (05/26/2025 [...] Deep Quiles M.D. AR: AR Report ID: [id number] Reading Location: [id number] Procedure Note Deep Quiles MD - 05/27/2025 [...] Deep Quiles M.D. AR: AR Report ID: [id number] Reading Location: [id number] Brinda RIGGINS IMG XR PROCEDURES Final Result * (ABNORMAL) Hemoglobin and hematocrit (05/26/2025 12:01 PM CDT) Hgb 7.9(L) 11.9 - 15.5 g/dL Hct 24.3(L) 35.6 - 45.5 % DARINEL RICHTER ([place]) Blood 05/26/2025 12:0 1 PM CDT 05/26/2025 12:04 PM CDT Beverly Goff DO LAB BLOOD ORDERABLES Fin al Result DARINEL RICHTER ([place]) 1 [facility] [place] [address] * POCT glucose (05/26/2025 11:34 AM CDT) Glucose, POC 139 70 - 199 mg/dL Blood 05/26/2025 11:3 4 AM CDT 05/26/2025 11:34 AM CDT Beverly Goff DO LAB POCT ORDERABLES - DE VICE Final Result Performing Organization Address City/[facility]/ZIP Co de Phone Number DARINEL NEELAM ([place]) 1 [facility] [place] [address] * ABO/Rh (05/26/2025 11:19 AM CDT) ABO/Rh A Positive Blood 05/26/2025 11:1 9 AM CDT 05/26/2025 11:32 AM CDT Narrative DARINEL RICHTER ([place]) - 05/26/2025 12:09 PM CDT Has the patient had Daratumumab or Isatuximab in the past 6 months?->Unknown Beverly Goff LAB BLOOD BANK TEST ORDE RABLES Final Result Performing Organization Address City/[facility]/ZIP Co de Phone Number DARINEL RICHTER ([place]) [address] [place] [address] * Crossmatch (05/26/2025 11:19 AM CDT) Crossmatch Compatible CERNER A ([place]) Unit number for crossmatch [id number] [facility] ([place]) Crossmatch Compatible CERNER A ([place]) Unit number for crossmatch [id number] [facility] ([place]) Blood 05/26/2025 11:1 9 AM CDT 05/26/2025 11:32 AM CDT Beverly Goff LAB BLOOD BANK TEST ORDE RABLES Final Result Performing Organization Address [facility] de Phone Number DARINEL RICHTER ([place]) [address] [place] [address] * Antibody screen (05/26/2025 11:19 AM CDT) Meeta, indirect, Gel Interpretation Negative ABSC Blood 05/26/2025 11:1 9 AM CDT 05/26/2025 11:32 AM CDT Narrative DARINEL RICHTER ([place]) - 05/26/2025 12:09 PM CDT Has the patient had Daratumumab or Isatuximab in the past 6 months?->Unknown Beverly Goff LAB BLOOD BANK TEST ORDE RABLES Final Result DARINEL RICHTER ([place]) [address] [place] [address] * POCT glucose (05/26/2025 8:00 AM CDT) Glucose, POC 166 70 - 199 mg/dL Blood 05/26/2025 8:00 AM CDT 05/26/2025 8:00 AM CDT Beverly Goff DO LAB POCT ORDERABLES - DE VICE Final Result Performing Organization Address [facility]/ZIP Co de Phone Number DARINEL RICHTER ([place]) 1 [facility] [place] [address] * (ABNORMAL) eGFR (05/26/2025 5:18 AM CDT) [...] Fin al Result DARINEL RICHTER ([place]) 1 [facility] [place] [address] * (ABNORMAL) Differential, auto (05/26/2025 5:18 AM [...] Fin al Result [facility] ([place]) 1 [facility] [place] [address] * (ABNORMAL) CBC with auto differential (05/26/2025 5:18 AM CDT) WBC 14.92(H) 3.80 - 9.90 K/cumm Hgb 7.5(L) 11.9 - 15.5 g/dL [facility] ([place]) Hct 22.6(L) 35.6 - 45.5 % CERNER [...] RDW CV 14.0 11.1 - 14.9 % [facility] ([place]) RDW SD 43.8 35.7 - 48.1 fL [facility] ([place]) NRBC abs 0.00 0.00 - 0.01 K/cumm [facility] ([place]) Blood 05/26/2025 5:18 AM CDT 05/26/2025 6:10 AM CDT Beverly Goff DO LAB BLOOD ORDERABLES Fin al Result A[facility] ([place]) 1 [facility] [place] [address] * Phosphorus (05/26/2025 5:18 AM CDT) Phosphorus, pl 2.6 2.3 - 4.5 mg/dL Blood 05/26/2025 5:18 AM CDT 05/26/2025 6:11 AM CDT Beverly Goff DO LAB BLOOD ORDERABLES Fin al Result DARINEL RICHTER ([place]) 1 [facility] [place] [address] * Magnesium (05/26/2025 5:18 AM CDT) Magnesium 1.9 1.4 - 2.5 mg/dL Blood 05/26/2025 5:18 AM CDT 05/26/2025 6:11 AM CDT Beverly Goff DO LAB BLOOD ORDERABLES Fin al Result Performing Organization Address [facility] de Phone Number DARINEL RICHTER ([place]) [address] [place] [address] * (ABNORMAL) Comprehensive metabolic panel (05/26/2025 5:18 AM CDT) Sodium 135 135 - 145 mmol/L Potassium, pl 3.2(L) 3.3 - 4.9 mmol/L [facility] ([place] Chloride 107 97 - 110 mmol/L [facility] ([place]) CO2 12(L) 22 - 32 mmol/L [facility] ([place]) Anion gap 16(H) 2 - 15 mmol/L [facility] ([place]) BUN 23 6 - 25 mg/dL [facility] ([place]) Creatinine 1.19(H) 0.60 - 1.10 mg/dL [facility] ([place]) Glucose 148 70 - 199 mg/dL [facility] ([place]) Comment: Interpretive Data Fasting [...] Fin al Result DARINEL RICHTER ([place]) 1 [facility] [place] [address] * POCT glucose (05/26/2025 2:59 AM CDT) Glucose, POC 160 70 - 199 mg/dL Blood 05/26/2025 2:59 AM CDT 05/26/2025 2:59 AM CDT Beverly Goff DO LAB POCT ORDERABLES - DE VICE Final Result Performing Organization Address [facility]/ZIP Co de Phone Number DARINEL RICHTER ([place]) 1 [facility] [place] [address] * (ABNORMAL) POCT glucose (05/25/2025 8:07 PM CDT) Glucose, POC 218(H) 70 - 199 mg/dL Blood 05/25/2025 8:07 PM CDT 05/25/2025 8:07 PM CDT Beverly Goff DO LAB POCT ORDERABLES - DE VICE Final Result DARINEL RICHTER ([place]) 1 [facility] [place] [address] * POCT glucose (05/25/2025 4:52 PM CDT) Glucose, POC 148 70 - 199 mg/dL Blood 05/25/2025 4:52 PM CDT 05/25/2025 4:52 PM CDT Beverly Goff DO LAB POCT ORDERABLES - DE VICE Final Result DARINEL RICHTER ([place]) 1 [facility] [place] [address] * POCT glucose (05/25/2025 11:49 AM CDT) Glucose, POC 143 70 - 199 mg/dL Blood 05/25/2025 11:4 9 AM CDT 05/25/2025 11:49 AM CDT Beverly Goff DO LAB POCT ORDERABLES - DE VICE Final Result DARINEL RICHTER ([place]) 1 [facility] [place] [address] * POCT glucose (05/25/2025 8:05 AM CDT) Glucose, POC 134 70 - 199 mg/dL Blood 05/25/2025 8:05 AM CDT 05/25/2025 8:05 AM CDT Beverly Goff DO LAB POCT ORDERABLES - DE VICE Final Result DARINEL RICHTER ([place]) 1 [facility] [place] [address] * Thyroid Function [place] (05/25/2025 6:17 AM CDT) Pathologist [facility] TSH 1.92 0.30 - 4.20 mcIUnit/mL Blood 05/25/2025 6:17 AM CDT 05/25/2025 9:36 AM CDT us Beverly Goff DO LAB BLOOD ORDERABLES Fin al Result DARINEL RICHTER ([place]) 1 [facility] [place] [address] * (ABNORMAL) Sodium level (05/25/2025 6:17 AM CDT) [facility] Sodium 132(L) 135 - 145 mmol/L Blood 05/25/2025 6:17 AM CDT 05/25/2025 6:24 AM CDT us Maisha Ferrell MD LAB BLOOD ORDERABLES Fi nal Result Performing Organization Address [facility] Co de Phone Number [facility] ([place]) 1 [facility] [place] [address] * POCT glucose (05/25/2025 2:57 AM CDT) [facility] Glucose, POC 110 70 - 199 mg/dL Blood 05/25/2025 2:57 AM CDT 05/25/2025 2:57 AM CDT us Kiley Kwok MD LAB POCT ORDERABLES - DEVICE Final Result Performing Organization Address [facility] Co de Phone Number [facility] ([place]) 1 [facility] [place] [address] * Strep pneumoniae antigen, urine Urine (05/25/2025 1:56 AM CDT) [facility] S. pneumoniae Ag Negative Negative Comment: A [...] last revised on 2023 Testing performed by: [facility], [address] [place] [address]., [id number] Urine 05/25/2025 1:56 AM CDT 05/25/2025 11:18 AM CDT Maisha Ferrell MD LAB MICROBIOLOGY - GENE RAL ORDERABLES Final Result Performing Organization Address City/[facility]/ZIP Co de Phone Number [facility] [place]) [address] [place] [address] [place] [address] * Legionella antigen Urine (05/25/2025 1:56 AM CDT) [facility] Legionella Ag Negative Negative Comment: Interpretive Data This test detects only Legionella pneumophila serogroup 1 antigen. Current interpretive data was last revised on 2020. Testing performed by: [facility], [address] [place] [address]., [id number] Urine 05/25/2025 1:56 AM CDT 05/25/2025 11:18 AM CDT Maisha Ferrell MD LAB MICROBIOLOGY - GENE RAL ORDERABLES Final Result [facility] ([place]) 1 [facility] [place] [address] * Sodium, urine, random (05/25/2025 1:56 AM CDT) Sodium, ur 29 mmol/L Comment: Interpretive Data No reference range established. Current interpretive data was last revised 2019. Urine 05/25/2025 1:56 AM CDT 05/25/2025 2:02 AM CDT Narrative DARINEL NEELAM ([place]) - 05/25/2025 3:11 AM CDT No normal range Maisha Ferrell MD LAB URINE ORDERABLES Fi nal Result DARINEL RICHTER ([place]) 1 [facility]ly [facility] Department [place] [address] * Osmolality, urine (05/25/2025 1:56 AM CDT) Osmo, ur 425 mOsm/kg Comment:Testing performed by : [facility], 1 [facility], [address] Urine 05/25/2025 1:56 AM CDT 05/25/2025 12:11 PM CDT Maisha Ferrell MD LAB URINE ORDERABLES Fi nal Result Performing Organization Address City/[facility] Co de Phone Number DARINEL RICHTER ([place]) 1 [facility]ly [facility] [place] [address] * (ABNORMAL) eGFR (05/25/2025 12:16 AM CDT) [...] LAB BLOOD ORDERABLES Fi nal Result DARINEL [facility] ([place]) 1 [facility] [place] [address] * (ABNORMAL) Differential, auto (05/25/2025 12:16 AM CDT) Neutrophil abs 18.61(H) 1.50 - 6.50 K/cumm Imm gran abs 0.16(H) 0.00 - 0.10 K/cumm [facility] ([place]) Lymphocyte abs 2.11 0.80 - 3.30 K/cumm [facility] ([place]) Monocyte abs 2.00(H) 0.20 - 0.80 K/cumm [...] Imm gran pct 0.7 % [facility] ([place]) Comment: Interpretive Data Percent cell count reference [...] us Maisha Ferrell MD LAB BLOOD ORDERABLES [facility] Result DARINEL NEELAM ([place]) 1 [facility] [place] [address] * (ABNORMAL) CBC with auto differential (05/25/2025 12:16 AM CDT) WBC 23.02(H) 3.80 - 9.90 K/cumm Hgb 9.4(L) 11.9 - 15.5 g/dL [facility] ([place]) Hct 27.9(L) 35.6 - 45.5 % [facility] ([place]) Plt 315 150 - 400 K/cumm [facility] ([place]) MPV 9.9 9.1 - 12.3 fL [facility] ([place]) RBC 3.28(L) 3.90 - 5.20 M/cumm [facility] ([place]) MCV 85.1 81.3 - 96.4 fL [facility] ([place]) MCH 28.7 27.1 - 33.3 pg [facility] ([place]) MCHC 33.7 32.3 - 35.7 g/dL [facility] RDW CV 13.8 11.1 - 14.9 % [facility] ([place]) RDW SD 42.5 35.7 - 48.1 fL [facility] NRBC abs 0.00 0.00 - 0.01 K/cumm [facility] ([place] Blood 05/25/2025 12:1 6 AM CDT 05/25/2025 12:44 AM CDT Maisha Ferrell MD LAB BLOOD ORDERABLES Fi nal Result DARINEL [facility] ([place]) 1 [facility] [place] [address] * Magnesium (05/25/2025 12:16 AM CDT) Pathologist [facility] Magnesium 1.5 1.4 - 2.5 mg/dL Blood 05/25/2025 12:1 6 AM CDT 05/25/2025 12:44 AM CDT Maisha Ferrell MD LAB BLOOD ORDERABLES Fi nal Result DARINEL RICHTER ([place]) 1 [facility] [place] [address] * (ABNORMAL) Comprehensive metabolic panel (05/25/2025 12:16 AM CDT) Sodium 134(L) 135 - 145 mmol/L Potassium, pl 3.8 3.3 - 4.9 mmol/L [facility] Chloride 101 97 - 110 mmol/L [facility] ([place] CO2 15(L) 22 - 32 mmol/L [facility] ([place]) Anion gap 18(H) 2 - 15 mmol/L [facility] ([place]) BUN 23 6 - 25 mg/dL [facility] ([place]) Creatinine 1.14(H) 0.60 - 1.10 [...] ([place]) ALT 86(H) 7 - 45 Units/L [facility] ([place]) AST 90(H) 10 - 45 Units/L [facility] ([place]) Blood 05/25/2025 12:1 6 AM CDT 05/25/2025 12:44 AM CDT Maisha Ferrell MD LAB BLOOD ORDERABLES Fi nal Result DARINEL [facility] ([place]) 1 [facility] [place] [address] * Sodium level (05/25/2025 12:12 AM CDT) Sodium 135 135 - 145 mmol/L Blood 05/25/2025 12:1 2 AM CDT 05/25/2025 12:44 AM CDT Maisha Ferrell MD LAB BLOOD ORDERABLES Fi nal Result DARINEL NEELAM ([place]) 1 [facility] [place] [address] * [place] CRITICAL CARE ILL/INJURED PATIENT INIT 30-74 MIN [...] [facility] ([place]) RSV RNA Negative Negative [facility] ([place]) Comment: Interpretive data: Testing performed by [facility]. This test is performed using the Cepheid Xpert Xpress CoV-2/Flu/RSV plus assay. This is a multiplex, real- time reverse transcriptase PCR assay intended for the qualitative detection of nucleic acid from SARS-CoV-2, influenza A, influenza B, and respiratory syncytial virus. This assay has been cleared by the [place] Food and Drug administration. The performance characteristics have been verified by the [facility]. Results must be considered in the clinical context, and a negative result does not rule out infection. Interpretive Data last revised 2023 Nasopharyngeal 05/24/2025 10 :30 PM CDT 05/24/2025 10:40 PM CDT Narrative DUCJOVANNI RICHTER ([place]) - 05/24/2025 11:24 PM CDT Is the Patient experiencing symptoms consistent with COVID?->Yes Maisha Ferrell MD LAB MICROBIOLOGY - GENE RAL ORDERABLES Final Result Performing Organization Address [facility]/ZIP Co de Phone Number DARINEL RICHTER ([place]) 1 [facility] [place] [address] * (ABNORMAL) Sodium level (05/24/2025 8:55 PM CDT) Sodium 134(L) 135 - 145 mmol/L Blood 05/24/2025 8:55 PM CDT 05/24/2025 9:04 PM CDT Maisha Ferrell MD LAB BLOOD ORDERABLES Fi nal Result DARINEL RICHTER ([place]) 1 [facility] [place] [address] * POCT glucose (05/24/2025 8:53 PM CDT) Glucose, POC 132 70 - 199 mg/dL Blood 05/24/2025 8:53 PM CDT 05/24/2025 8:53 PM CDT Kiley Kwok MD LAB POCT ORDERABLES - DEVICE Final Result DARINEL RICHTER ([place]) 1 [facility] Department [place] [address] * Sepsis Lactate w/ Reflex (05/24/2025 5:26 PM CDT) Sepsis Lactate 1.7 0.7 - 2.0 mmol/L Blood 05/24/2025 5:26 PM CDT 05/24/2025 5:31 PM CDT Doni Briceño MD LAB BLOOD ORDERABLES Final Result Performing Organization Address [facility] Co de Phone Number DARINEL RICHTER ([place]) 1 [facility] Department [place] [address] * CT Chest Abdomen Pelvis W Contrast [...] Venancio Chua M.D. CH: DAGOBERTO Report ID: [id number] Reading Location: [id number] Procedure Note Venancio Chua Jr., MD - [...] by Venancio Chua M.D. CH: Report ID: [id number] Reading Location: [place] [address] Doni Briceño MD IMG CT PROCEDURES Final Res ult * (ABNORMAL) Urinalysis reflex to microscopic (05/24/2025 4:18 PM CDT) Color, ur Yellow Yellow Clarity, ur Clear Clear [facility] ([place]) Specific gravity, ur 1.015 1.003 - 1.030 [facility] ([place]) pH, urine 6.5 [facility] ([place]) Comment: Interpretive Data U rine pH is affected by diet, medications, systemic acid-base disturbances, and renal tubular function. pH may affect urinary stone formation. For example, urine pH below 6.0 may help reduce the tendency for calcium phosphate stones and pH greater than 6.0 may reduce the tendency for uric acid stone formation. Source: [facility] [employer] Current Interpretive Data was last revised on [...] ORDERABLES Final Result DARINEL RICHTER ([place]) 1 [facility] [place] [address] * (ABNORMAL) Urinalysis, microscopic only (05/24/2025 4:18 PM CDT) WBC, ur 0-5 0 - 5 /HPF RBC, ur 0-2 0 - 2 /HPF [facility] ([place]) Epithelial cells, squamous, ur 1-5 0 - 5 /HPF [facility] ([place]) Mucous, ur Present(A) [facility] ([place]) Hyaline casts, ur 1-5 0 - 10 /LPF [facility] ([place]) Urine 05/24/2025 4:18 PM CDT 05/24/2025 4:27 PM CDT Doni Briceño MD LAB URINE ORDERABLES Final Result Performing Organization Address City/[facility]/ZIP Co de Phone Number DARINEL RICHTER ([place]) 1 [place] [address] * Blood culture Blood (05/24/2025 3:45 PM CDT) Report Final Report: No growth Comment:Testing performed by : [facility], [address] [place]., [address] Blood 05/24/2025 3:45 PM CDT 05/24/2025 6:26 PM CDT Narrative [facility] ([place]) - 05/29/2025 7:00 AM CDT Collection->Peripheral [...] performance characteristics have been verified by the [facility]. For questions about this culture, contact the Microbiology Laboratory at [phone]. Interpretive data was last revised on 24. Doni Briceño MD LAB MICROBIOLOGY - GENERAL ORDERABLES Final Result DARINEL RICHTER ([place]) 1 [facility] Department [place] [address] * Blood culture Blood (05/24/2025 3:45 PM CDT) Report Final Report: No growth Comment:Testing performed by : [facility], 1 [facility], [place]., [address] Blood 05/24/2025 3:45 PM CDT 05/24/2025 6:26 [...] performance characteristics have been verified by the [facility]. For questions about this culture, contact the Microbiology Laboratory at [phone]. Interpretive data was last revised on 24. Doni Briceño MD LAB MICROBIOLOGY - GENERAL ORDERABLES Final Result DARINEL [facility] ([place]) 1 [facility] Department [place] [address] * XR Chest 1 Vw Portable (05/24/2025 2:07 PM CDT) Anatomical Region Laterality Modality Body, Chest N/A Computed Radiogr aphy 05/24/2025 2:11 PM CDT Narrative 05/24/2025 2:12 PM CDT EXAM DESCRIPTION: XR CHEST 1 VIEW REASON FOR STUDY: general weakness Patient to ED via [facility] from [facility] for AMS. AMRT reported that patient is [...] Jacob Montague D.O. PS: PS Report ID: [id number] Reading Location: [id number] Procedure Note Jacob Montague, DO - 05/24/2025 EXAM DESCRIPTION: XR CHEST 1 VIEW REASON FOR STUDY: general weakness Patient to ED via [facility] from [facility] for AMS. AMRT reported that patient is [...] Jacob Montague D.O. PS: PS Report ID: [id number] Reading Location: [id number] us Doni Briceño MD IMG XR PROCEDURES [...] 1:58 PM CDT 05/24/2025 2:29 PM CDT us Doni Briceño MD LAB BLOOD ORDERABLES Final Result DARINEL RICHTER ([place]) 1 [facility] [address] [place] [address] * aPTT (05/24/2025 1:58 PM CDT) aPTT 32 28 - 38 sec DARINEL RICHTER ([place]) Comment: Interpretive Data Heparin therapeutic range: 66.0 - 100.0 seconds. Range based on correlation with therapeutic heparin activity range of 0.3 - 0.7 Units/mL. Current interpretive data was last revised on 2023. Blood 05/24/2025 1:58 PM CDT 05/24/2025 2:01 PM CDT Doni Briceño MD LAB BLOOD ORDERABLES Final Result DARINEL RICHTER ([place]) 1 [facility] [address] [place] [address] * Protime-INR (05/24/2025 1:58 PM CDT) PT 12.1 9.7 - 13.0 sec [facility] ([place]) INR 1.12 0.90 - 1.20 [facility] ([place]) Comment: Interpretive data Oral anticoagulant therapeutic ranges: Venous thromboembolism prophylaxis or treatment: 2.0-3.0 CARDIOLOGY Standard range: 2.0-3.0 High-intensity range: 2.5-3.5 Refer to indication-specific guidelines for appropriate target ranges for prosthetic heart valve replacement. Current interpretive data was last revised on 2019. Blood 05/24/2025 1:58 PM CDT 05/24/2025 2:01 PM CDT Doni Briceño MD LAB BLOOD ORDERABLES Final Result Performing Organization Address City/[facility] Co de Phone Number [facility] ([place]) 1 [facility] [place] [address] * (ABNORMAL) CRP (acute phase) (05/24/2025 1:58 PM CDT) Pathologist [facility] CRP 45.1(H) <=10.0 mg/L Blood 05/24/2025 1:58 PM CDT 05/24/2025 2:29 PM CDT Doni Briceño MD LAB BLOOD ORDERABLES Final Result DARINEL [facility] ([place]) 1 [facility] [place] [address] * Magnesium (05/24/2025 1:58 PM CDT) Pathologist [facility] Magnesium 1.5 1.4 - 2.5 mg/dL Blood 05/24/2025 1:58 PM CDT 05/24/2025 2:29 PM CDT Doni Briceño MD LAB BLOOD ORDERABLES Final Result [facility]INEL [facility] ([place]) 1 [facility] Department [place] [address] * (ABNORMAL) Comprehensive metabolic panel (05/24/2025 1:58 PM CDT) Sodium 128(L) 135 - 145 mmol/L Potassium, pl 3.9 3.3 - 4.9 mmol/L [facility] ([place]) Chloride 94(L) 97 - 110 mmol/L [facility] ([place]) CO2 19(L) 22 - 32 mmol/L [facility] ([place]) Anion gap 16(H) 2 - 15 mmol/L [facility] ([place]) BUN 23 6 - 25 mg/dL [facility] ([place]) Creatinine 1.33(H) 0.60 - 1.10 mg/dL [facility] ([place]) Glucose 188 70 - 199 mg/dL [facility] ([place]) [...] LAB BLOOD ORDERABLES Final Result DARINEL RICHTER ([place]) 1 [facility] [place] [address] * (ABNORMAL) Sepsis Lactate w/ Reflex (05/24/2025 1:47 PM CDT) Sepsis Lactate 2.9(H) 0.7 - 2.0 mmol/L Blood 05/24/2025 1:47 PM CDT 05/24/2025 1:49 PM CDT Doni Briceño MD LAB BLOOD ORDERABLES Final Result Performing Organization Address [facility] Co de Phone Number DARINEL RICHTER ([place]) 1 [facility] [place] [address] * ABO/Rh (05/24/2025 1:47 PM CDT) ABO/Rh A Positive Blood 05/24/2025 1:47 PM CDT 05/24/2025 1:49 PM CDT Narrative DARINEL RICHTER ([place]) - 05/24/2025 2:27 PM CDT Has the patient had Daratumumab or Isatuximab in the past 6 months?->Unknown Doni Briceño MD LAB BLOOD BANK TEST ORDERAB LES Final Result Performing Organization Address City/[facility]/ZIP Co de Phone Number DARINEL RICHTER ([place]) 1 [facility] [place] [address] * Antibody screen (05/24/2025 1:47 PM CDT) Emeta, indirect, Gel Interpretation Negative ABSC Blood 05/24/2025 1:47 PM CDT 05/24/2025 1:49 PM CDT Narrative DARINEL RICHTER ([place]) - 05/24/2025 2:27 PM CDT Has the patient had Daratumumab or Isatuximab in the past 6 months?->Unknown Doni Briceño MD LAB BLOOD BANK TEST ORDERAB LES Final Result DARINEL MCDERMOTT) 1 [facility] [place] [address] * CT Head WO Contrast (05/24/2025 1:16 [...] Venancio Chua M.D. CH: DAGOBERTO Report ID: [id number] Reading Location: [id number] Procedure Note Venancio Chua Jr., MD - [...] by Venancio Chua M.D. CH: Report ID: [id number] Reading Location: [place] [address] Ernie Rivas MD IM CT PROCEDURES Final Resul t * (ABNORMAL) [...] CDT 05/24/2025 1:41 PM CDT us Doni Briceño MD LAB BLOOD ORDERABLES Final Result DARINEL RICHTER ([place]) 1 [facility] Department [place] [address] * (ABNORMAL) Procalcitonin (05/24/2025 1:09 PM CDT) Procalcitonin 1.48(H) <=0.25 ng/mL Comment:Testing performed by : [facility], [address] [facility], [place]., [address] Blood 05/24/2025 1:09 PM CDT 05/25/2025 12:54 PM CDT us Kiley Kwok MD LAB BLOOD ORDERABLES Final Re sult Performing Organization Address City/State/[facility] Co de Phone Number [facility] ([place]) 1 [facility] [place] [address] * (ABNORMAL) CBC with auto differential (05/24/2025 1:09 PM CDT) Pathologist [facility] WBC 20.37(H) 3.80 - 9.90 K/cumm Hgb 10.4(L) 11.9 - 15.5 g/dL [facility] ([place]) Hct 31.5(L) 35.6 - 45.5 % [facility] ([place]) Plt 333 150 - 400 K/cumm [facility] ([place]) MPV 9.8 9.1 - 12.3 fL [facility] ([place]) RBC 3.66(L) 3.90 - 5.20 M/cumm [facility] ([place]) MCV 86.1 81.3 - 96.4 fL [facility] ([place]) MCH 28.4 27.1 - 33.3 pg [facility] ([place]) MCHC 33.0 32.3 - 35.7 g/dL [facility] ([place]) RDW CV 13.5 11.1 - 14.9 % [facility] ([place]) RDW SD 42.3 35.7 - 48.1 fL [facility] ([place]) NRBC abs 0.00 0.00 - 0.01 K/cumm [facility] ([place]) Blood 05/24/2025 1:09 PM CDT 05/24/2025 1:41 PM CDT us Doni Briceño MD LAB BLOOD ORDERABLES Final Result DARINEL RICHTER ([place]) 1 [facility] [place] [address] * Erythrocyte sedimentation rate (05/24/2025 1:09 PM CDT) Erythrocyte sedimentation rate 18 1 - 30 mm/hr Blood 05/24/2025 1:09 PM CDT 05/24/2025 1:41 PM CDT Doni Briceño MD LAB BLOOD ORDERABLES Final Result DARINEL RICHTER ([place]) 1 [place] [address] * POCT glucose (05/21/2025 4:31 PM CDT) Glucose, POC 199 70 - 199 mg/dL Blood 05/21/2025 4:31 PM CDT 05/21/2025 4:31 PM CDT Beverly Goff DO LAB POCT ORDERABLES - DE VICE Final Result Performing Organization Address City/[facility]/ZIP Co de Phone Number DARINEL RICHTER ([place]) 1 [facility] [place] [address] * (ABNORMAL) POCT glucose (05/21/2025 11:11 AM CDT) [facility] Signature Glucose, POC 253(H) 70 - 199 mg/dL Blood 05/21/2025 11:1 1 AM CDT 05/21/2025 11:11 AM CDT Beverly Goff DO LAB POCT ORDERABLES - DE VICE Final Result DARINEL RICHTER ([place]) 1 [facility] [place] [address] * POCT glucose (05/21/2025 7:30 AM CDT) Glucose, POC 148 70 - 199 mg/dL Blood 05/21/2025 7:30 AM CDT 05/21/2025 7:30 AM CDT Beverly Goff DO LAB POCT ORDERABLES - DE VICE Final Result Performing Organization Address [facility] Co de Phone Number DARINEL RICHTER ([place]) 1 [facility] [place] [address] * POCT glucose (05/21/2025 2:07 AM CDT) Glucose, POC 157 70 - 199 mg/dL Blood 05/21/2025 2:07 AM CDT 05/21/2025 2:07 AM CDT Beverly Goff LAB POCT ORDERABLES - DE VICE Final Result Performing Organization Address [facility] Co de Phone Number DARINEL RICHTER ([place]) 1 [facility] [place] [address] * (ABNORMAL) POCT glucose (05/20/2025 9:39 PM CDT) Glucose, POC 246(H) 70 - 199 mg/dL Comment:Glu2: RN/MD Notified Blood 05/20/2025 9:39 PM CDT 05/20/2025 9:39 PM CDT Beverly Goff DO LAB POCT ORDERABLES - DE VICE Final Result Performing Organization Address City/[facility] Co de Phone Number DARINEL RICHTER ([place]) 1 [facility] [place] [address] * POCT glucose (05/20/2025 4:36 PM CDT) Glucose, POC 173 70 - 199 mg/dL Blood 05/20/2025 4:36 PM CDT 05/20/2025 4:36 PM CDT Beverly Goff DO LAB POCT ORDERABLES - DE VICE Final Result DARINEL RICHTER ([place]) 1 [facility] [place] [address] * (ABNORMAL) POCT glucose (05/20/2025 11:24 AM CDT) Glucose, POC 202(H) 70 - 199 mg/dL Blood 05/20/2025 11:2 4 AM CDT 05/20/2025 11:24 AM CDT Beverly Goff DO LAB POCT ORDERABLES - DE VICE Final Result Performing Organization Address [facility] Co de Phone Number DARINEL RICHETR ([place]) 1 [facility] [place] [address] * MRI Brain WO Contrast (05/20/2025 10:42 [...] sinus floor. Right sphenoid sinus foamy secretions. Vgfpz-dlhciwy-fedc-left mastoid T2 hyperintense fluid signal. IMPRESSION: 1. No acute infarction. 2. Right frontal ron hole. Qiqir-vxqksrr-hrlm-left bilateral cerebral convexity subdural blood products are [...] Electronically signed by Sterling Lorenz D.O. AP: JEAN MARIE Report ID: [id number] Reading Location: [id number] Procedure Note Sterling Lorenz, DO - 05/20/2025 [...] maxillary sinus floor. Rightsphenoid sinus foamy secretions. Ikofl-zyzzxbc-fbsd-left mastoid T2 hyperintensefluid signal. IMPRESSION: 1. No acute infarction. 2. Right frontal ron hole. Lnvbw-bpoozfj-mohw-left bilateral cerebral convexity subdural blood products are [...] Sterling Lorenz D.O. AP: AP Report ID: [id number] Reading Location: [id number] Liat Potts MD IMG MRI PROCEDURES Final Result * POCT glucose (05/20/2025 7:55 AM CDT) Glucose, POC 120 70 - 199 mg/dL Blood 05/20/2025 7:55 AM CDT 05/20/2025 7:55 AM CDT Beverly Goff DO LAB POCT ORDERABLES - DE VICE Final Result Performing Organization Address City/[facility]/ZIP Co de Phone Number DARINEL RICHTER ([place]) 1 [facility] [address] [place] [address] * (ABNORMAL) Troponin T high-sensitivity 6-hour (05/20/2025 5:52 AM CDT) Pathologist [facility] Trop T hs 19(H) <=14 ng/L Comment: Interpretive Data For further hscTnT resources including the diagnostic algorithm and an aid in interpretation, copy and paste this link: https://nrl.testcatalog.org/show/hsTrop Current Interpretive Data last revised 2020. Trop T hs delta 2 ng/L [facility] ([place]) Trop T hs interp Insignificant [facility] ([place]) Blood 05/20/2025 5:52 AM CDT 05/20/2025 6:07 AM CDT Liat Potts MD LAB BLOOD ORDERABLES Aracelis l Result DARINEL RICHTER ([place]) 1 [facility] [address] [place] [address] * Sepsis Lactate w/ Reflex (05/20/2025 5:52 AM CDT) Pathologist [facility] Sepsis Lactate 1.0 0.7 - 2.0 mmol/L Blood 05/20/2025 5:52 AM CDT 05/20/2025 6:07 AM CDT Liat Potts MD LAB BLOOD ORDERABLES Aracelis l Result DARINEL MCDERMOTT) 1 [facility] [place] [address] * eGFR (05/20/2025 5:52 AM CDT) eGFR [...] Aracelis l Result [facility]EL [facility] ([place]) 1 [facility] [place] [address] * Magnesium (05/20/2025 5:52 AM CDT) Magnesium 1.7 1.4 - 2.5 mg/dL Blood 05/20/2025 5:52 AM CDT 05/20/2025 6:07 AM CDT us Maisha Ferrell MD LAB BLOOD ORDERABLES Fi nal Result DARINEL RICHTER ([place]) 1 [facility] Department [place] [address] * (ABNORMAL) Comprehensive metabolic panel (05/20/2025 5:52 [...] 16 10 - 45 Units/L [facility] ([place]) Blood 05/20/2025 5:52 AM CDT 05/20/2025 6:07 AM CDT Liat Potts MD LAB BLOOD ORDERABLES Aracelis l Result Performing Organization Address [facility] Co de Phone Number DARINEL RICHTER ([place]) [address] [facility] [place] [address] * (ABNORMAL) Troponin T high-sensitivity 2-hour (05/20/2025 2:12 AM CDT) Trop T hs 15(H) <=14 ng/L Comment: Interpretive Data For further hscTnT resources including the diagnostic algorithm and an aid in interpretation, copy and paste this link: https://nrl.testcatalog.org/show/hsTrop Current Interpretive Data last revised 2020. Trop T hs delta -2 ng/L [facility] ([place]) Trop T hs interp Insignificant [facility] ([place]) Blood 05/20/2025 2:12 AM CDT 05/20/2025 2:45 AM CDT Liat Potts MD LAB BLOOD ORDERABLES Aracelis l Result Performing Organization Address [facility] Co de Phone Number DARINEL RICHTER ([place]) [address] [facility] [place] [address] * [place] CRITICAL CARE ILL/INJURED PATIENT INIT 30-74 MIN [...] patient to a continuous cardiac monitored bed. Liat Potts MD IN CLINIC/BEDSIDE ORDERAB LES Final Result * ECG 12 lead (05/20/2025 12:46 AM CDT) 05/20/2025 12:4 6 AM CDT Narrative [facility] - 05/20/2025 10:27 AM CDT Vent Rate: 72 bpm RR Interval: 833 msec OK Interval: 151 msec QRS Duration: 89 msec QT Interval: 389 msec QTC Interval: 412 msec P-R-T [place]: 34 - 95 - 31 degrees IMPRESSION: SINUS RHYTHM BORDERLINE RIGHT AXIS DEVIATION [QRS AXIS > 90] BORDERLINE ECG Electronically Signed By: Harjeet Mendez MD Liat Potts MD ECG ORDERABLES Final Res ult [facility] * Urinalysis reflex to microscopic and culture [...] tendency for uric acid stone formation. Source: [facility] Current Interpretive Data was last revised [...] 5 AM CDT 05/20/2025 12:29 AM CDT us Liat Potts MD LAB MICROBIOLOGY - GENERA L ORDERABLES Final Result DARINEL RICHTER ([place]) 1 [facility] [place] [address] * CTA Stroke Head Neck W WO [...] Hattie Boss M.D. SN: SN Report ID: [id number] Reading Location: [id number] Procedure Note Hattie Boss MD - 05/20/2025 [...] Hattie Boss M.D. SN: SN Report ID: [id number] Reading Location: [id number] Liat Potts MD IMG CT PROCEDURES Final [...] by Hattie Boss M.D. SN: Report ID: [id number] Reading Location: [id number] Procedure Note Hattie Boss MD - 05/20/2025 [...] Hattie Boss M.D. SN: SN Report ID: [id number] Reading Location: [place] [address] us Liat Potts MD IMG CT PROCEDURES Final R esult * (ABNORMAL) Troponin T high-sensitivity series (baseline, 2hr, 4hr, 6hr) (05/19/2025 11:48 PM CDT) Pathologist [facility] Trop T hs 17(H) <=14 ng/L Comment: Interpretive Data For further hscTnT resources including the diagnostic algorithm and an aid in interpretation, copy and paste this link: [email or web address].testcatalog.org/show/[email or web address] Current Interpretive Data last revised 2020. Blood 05/19/2025 11:4 8 PM CDT 05/19/2025 11:55 PM CDT Liat Potts MD LAB BLOOD ORDERABLES Aracelis l Result [facility] ([place]) 1 [facility] [address] [place] [address] * (ABNORMAL) Sepsis Lactate w/ Reflex (05/19/2025 11:48 PM CDT) Pathologist [facility] Sepsis Lactate 2.9(H) 0.7 - 2.0 mmol/L Blood 05/19/2025 11:4 8 PM CDT 05/19/2025 11:55 PM CDT Liat Potts MD LAB BLOOD ORDERABLES Aracelis l Result [facility] ([place]) 1 [facility] [address] [place] [address] * eGFR (05/19/2025 11:48 PM CDT) eGFR [...] MD LAB BLOOD ORDERABLES Aracelis alvarenga Result [facility] ([place]) 1 [facility] Department [place] [address] * (ABNORMAL) Differential, auto (05/19/2025 11:48 PM [...] Result D[facility]INEL RICHTER ([place]) 1 [facility] [place] [address] * (ABNORMAL) CBC with auto differential (05/19/2025 [...] MD LAB BLOOD ORDERABLES Aracelis alvarenga Result [facility] ([place]) 1 [facility] [place] [address] * (ABNORMAL) Comprehensive metabolic panel (05/19/2025 11:48 PM CDT) Pathologist [facility] Sodium 137 135 - 145 mmol/L Potassium, pl 4.1 3.3 - 4.9 mmol/L [facility] ([place]) Chloride 98 97 - 110 mmol/L [facility] ([place]) CO2 20(L) 22 - 32 mmol/L [facility] ([place]) Anion gap 19(H) 2 - 15 mmol/L [facility] ([place]) BUN 17 6 - 25 mg/dL [facility] ([place] Creatinine 0.97 0.60 - 1.10 [...] 19 10 - 45 Units/L [facility] ([place]) Blood 05/19/2025 11:4 8 PM CDT 05/19/2025 11:55 PM CDT us Liat Potts MD LAB BLOOD ORDERABLES Aracelis l Result [facility] ([place]) 1 [facility] [place] [address] * POCT glucose (05/19/2025 11:11 AM CDT) Glucose, POC 160 70 - 199 mg/dL Blood 05/19/2025 11:1 1 AM CDT 05/19/2025 11:11 AM CDT us Beverly Goff DO LAB POCT ORDERABLES - DE VICE Final Result Performing Organization Address City/[facility]/ZIP Co de Phone Number DARINEL RICHTER ([place]) 1 [facility] [place] [address] * POCT glucose (05/19/2025 7:56 AM CDT) Glucose, POC 124 70 - 199 mg/dL Blood 05/19/2025 7:5 6 AM CDT 05/19/2025 7:56 AM CDT us Beverly Goff DO LAB POCT ORDERABLES - DE VICE Final Result Performing Organization Address [facility] Co de Phone Number D[facility]INEL RICHTER ([place]) 1 [facility] [place] [address] * eGFR (05/19/2025 4:19 AM CDT) eGFR [...] Result [facility] ([place]) 1 [facility] [place] [address] * (ABNORMAL) Differential, auto (05/19/2025 4:19 AM CDT) Neutrophil abs 4.22 1.50 - 6.50 K/cumm Imm gran abs 0.02 0.00 - 0.10 K/cumm [facility] ([place]) Lymphocyte abs 4.90(H) 0.80 - 3.30 K/cumm [facility] ([place]) Monocyte abs 0.51 0.20 - 0.80 K/cumm [facility] ([place]) Eosinophil abs 0.56(H) 0.00 - 0.50 K/cumm [facility] ([place]) Basophil abs 0.07 0.00 - 0.10 K/cumm [facility] ([place]) Neutrophil pct 41.0 % [facility] ([place]) Comment: Interpretive Data Percent cell count reference ranges are not reported, since discordance with absolute values may lead to misinterpretation of CBC data. Current Interpretive Data was last revised on 2018. Imm gran pct 0.2 % [facility] ([place]) Comment: Interpretive Data Percent cell count reference ranges are not reported, since discordance with absolute values may lead to misinterpretation of CBC data. Current Interpretive Data was last revised on 2018. Lymphocyte pct 47.7 % [facility] ([place]) Comment: Interpretive Data Percent cell count reference ranges are not reported, since discordance with absolute values may lead to misinterpretation of CBC data. Current Interpretive Data was last revised on 2018. Monocyte pct 5.0 % [facility] ([place]) Comment: Interpretive Data Percent cell count reference ranges are not reported, since discordance with absolute values may lead to misinterpretation of CBC data. Current Interpretive Data was last revised on 2018. Eosinophil pct 5.4 % [facility] ([place]) Comment: Interpretive Data Percent cell count reference ranges are not reported, since discordance with absolute values may lead to misinterpretation of CBC data. Current Interpretive Data was last revised on 2018. Basophil pct 0.7 % [facility] ([place]) Comment: Interpretive Data Percent cell count reference ranges are not reported, since discordance with absolute values may lead to misinterpretation of CBC data. Current Interpretive Data was last revised on 2018. Blood 05/19/2025 4:19 AM CDT 05/19/2025 5:30 AM CDT Beverly Goff DO LAB BLOOD ORDERABLES Fin al Result Performing Organization Address City/[facility]/ZIP Co de Phone Number [facility] ([place]) 1 [facility] [place] [address] * (ABNORMAL) CBC with auto differential (05/19/2025 4:19 AM CDT) WBC 10.28(H) 3.80 - 9.90 K/cumm Hgb 9.2(L) 11.9 - 15.5 g/dL [facility] ([place]) Hct 27.7(L) 35.6 - 45.5 % [facility] ([place]) Plt 226 150 - 400 K/cumm [facility] ([place]) MPV 10.5 9.1 - 12.3 fL [facility] ([place]) RBC 3.21(L) 3.90 - 5.20 M/cumm [facility] ([place]) MCV 86.3 81.3 - 96.4 fL [facility] ([place]) MCH 28.7 27.1 - 33.3 pg [facility] ([place]) MCHC 33.2 32.3 - 35.7 g/dL [facility] ([place]) RDW CV 13.5 11.1 - 14.9 % [facility] ([place]) RDW SD 41.8 35.7 - 48.1 fL [facility] ([place]) NRBC abs 0.00 0.00 - 0.01 K/cumm [facility] ([place]) Blood 05/19/2025 4:19 AM CDT 05/19/2025 5:30 AM CDT Beverly Goff DO LAB BLOOD ORDERABLES Fin al Result Performing Organization Address City/[facility] Co de Phone Number [facility] ([place]) 1 [facility] [place] [address] * Phosphorus (05/19/2025 4:19 AM CDT) Pathologist [facility] Phosphorus, pl 3.7 2.3 - 4.5 mg/dL Blood 05/19/2025 4:19 AM CDT 05/19/2025 5:30 AM CDT Beverly Goff DO LAB BLOOD ORDERABLES Fin al Result [facility] RICHTER ([place]) [address] [place] [address] * Magnesium (05/19/2025 4:19 AM CDT) [facility] Magnesium 1.5 1.4 - 2.5 mg/dL Blood 05/19/2025 4:19 AM CDT 05/19/2025 5:30 AM CDT Beverly Goff DO LAB BLOOD ORDERABLES Fin al Result [facility]EL RICHTER ([place]) [address] [place] [address] * (ABNORMAL) Comprehensive metabolic panel (05/19/2025 4:19 AM CDT) Pathologist [facility] Sodium 140 135 - 145 mmol/L Potassium, pl 3.9 3.3 - 4.9 mmol/L [facility] ([place]) Chloride 103 97 - 110 mmol/L [facility] ([place]) CO2 20(L) 22 - 32 mmol/L [facility] ([place]) Anion gap 17(H) 2 - 15 mmol/L [facility] ([place]) BUN 20 6 - 25 mg/dL [facility] ([place]) Creatinine 0.99 0.60 - 1.10 mg/dL [facility] ([place]) Glucose 129 70 - 199 mg/dL [facility] ([place]) Comment: Interpretive Data Fasting glucose >/= [...] Result D[facility]INEL RICHTER ([place]) 1 [facility] [address] [place] [address] * POCT glucose (05/19/2025 2:33 AM CDT) [facility] Signature Glucose, POC 132 70 - 199 mg/dL Blood 05/19/2025 2:33 AM CDT 05/19/2025 2:33 AM CDT Beverly Goff DO LAB POCT ORDERABLES - DE VICE Final Result [facility] [address] [facility] [place] [address] * POCT glucose (05/18/2025 9:44 PM CDT) Glucose, POC 170 70 - 199 mg/dL Blood 05/18/2025 9:44 PM CDT 05/18/2025 9:44 PM CDT Beverly Goff LAB POCT ORDERABLES - DE VICE Final Result Performing Organization Address [facility] Co de Phone Number DARINEL RICHTER ([place]) 1 [facility] [place] [address] * POCT glucose (05/18/2025 4:31 PM CDT) Glucose, POC 162 70 - 199 mg/dL Blood 05/18/2025 4:31 PM CDT 05/18/2025 4:31 PM CDT Beverly Goff LAB POCT ORDERABLES - DE VICE Final Result Performing Organization Address [facility] Co ak Phone Number [facility] ([place]) 1 [facility] [place] [address] * POCT glucose (05/18/2025 11:44 AM CDT) Glucose, POC 149 70 - 199 mg/dL Blood 05/18/2025 11:4 4 AM CDT 05/18/2025 11:44 AM CDT Beverly Goff DO LAB POCT ORDERABLES - DE VICE Final Result Performing Organization Address [facility] Co de Phone Number [facility] ([place]) 1 [facility] [place] [address] * POCT glucose (05/18/2025 7:36 AM CDT) Glucose, POC 154 70 - 199 mg/dL Blood 05/18/2025 7:36 AM CDT 05/18/2025 7:36 AM CDT Beverly Goff DO LAB POCT ORDERABLES - DE VICE Final Result Performing Organization Address City/[facility] Co de Phone Number D[facility]INEL RICHTER ([place]) 1 [facility] [address] [place] [address] * (ABNORMAL) eGFR (05/18/2025 4:54 AM CDT) [...] Result D[facility]INEL RICHTER ([place]) 1 [facility] Department [place] [address] * (ABNORMAL) Differential, auto (05/18/2025 4:54 AM [...] 4:54 AM CDT 05/18/2025 5:08 AM CDT us Beverly Goff DO LAB BLOOD ORDERABLES Fin al Result [facility] ([place]) [address] Department [place] [address] * (ABNORMAL) CBC with auto differential (05/18/2025 4:54 AM CDT) [facility] WBC 9.19 3.80 - 9.90 K/cumm Hgb 9.0(L) 11.9 - 15.5 g/dL [facility] ([place]) Hct 28.2(L) 35.6 - 45.5 % [facility] ([place]) Plt 219 150 - 400 K/cumm [facility] ([place]) MPV 9.8 9.1 - 12.3 fL [facility] ([place]) RBC 3.21(L) 3.90 - 5.20 M/cumm [facility] ([place]) MCV 87.9 81.3 - 96.4 fL [facility] ([place]) MCH 28.0 27.1 - 33.3 pg [facility] ([place]) MCHC 31.9(L) 32.3 - 35.7 g/dL [facility] ([place]) RDW CV 13.4 11.1 - 14.9 % [facility] ([place]) RDW SD 43.4 35.7 - 48.1 fL [facility] ([place]) NRBC abs 0.00 0.00 - 0.01 K/cumm [facility] ([place]) Blood 05/18/2025 4:54 AM CDT 05/18/2025 5:08 AM CDT Beverly Goff DO LAB BLOOD ORDERABLES Fin al Result [facility] ([place]) 1 [facility] [place] [address] * (ABNORMAL) Basic metabolic panel (05/18/2025 4:54 AM CDT) [facility] Sodium 141 135 - 145 mmol/L Potassium, pl 4.0 3.3 - 4.9 mmol/L [facility] ([place]) Chloride 106 97 - 110 mmol/L [facility] ([place]) CO2 22 22 - 32 mmol/L [facility] ([place]) Anion gap 13 2 - 15 mmol/L [facility] ([place]) BUN 21 6 - 25 mg/dL [facility] ([place]) Creatinine 1.18(H) 0.60 - 1.10 mg/dL [facility] ([place]) Glucose 173 70 - 199 mg/dL [facility] ([place]) Comment: Interpretive Data Fasting glucose >/= [...] 2022. Calcium 9.1 8.5 - 10.3 mg/dL [facility] ([place]) Blood 05/18/2025 4:54 AM CDT 05/18/2025 5:15 AM CDT Beverly Goff DO LAB BLOOD ORDERABLES Fin al Result [facility] ([place]) 1 [facility] [address] [place] [address] * POCT glucose (05/18/2025 2:24 AM CDT) Glucose, POC 182 70 - 199 mg/dL Blood 05/18/2025 2:24 AM CDT 05/18/2025 2:24 AM CDT Beverly Goff DO LAB POCT ORDERABLES - DE VICE Final Result Performing Organization Address City/[facility]/ZIP Co de Phone Number [facility]EL RICHTER ([place]) 1 [facility] [place] [address] * (ABNORMAL) POCT glucose (05/17/2025 8:25 PM CDT) Glucose, POC 259(H) 70 - 199 mg/dL Blood 05/17/2025 8:25 PM CDT 05/17/2025 8:25 PM CDT Beverly Goff DO LAB POCT ORDERABLES - DE VICE Final Result Performing Organization Address [facility] Co de Phone Number [facility] ([place]) 1 [facility] [place] [address] * POCT glucose (05/17/2025 4:17 PM CDT) Glucose, POC 174 70 - 199 mg/dL Blood 05/17/2025 4:17 PM CDT 05/17/2025 4:17 PM CDT Beverly Goff DO LAB POCT ORDERABLES - DE VICE Final Result Performing Organization Address [facility] Co ak Phone Number [facility] ([place]) 1 [facility] [place] [address] * (ABNORMAL) POCT glucose (05/17/2025 11:20 AM CDT) Glucose, POC 249(H) 70 - 199 mg/dL Blood 05/17/2025 11:2 0 AM CDT 05/17/2025 11:20 AM CDT Beverly Goff DO LAB POCT ORDERABLES - DE VICE Final Result Performing Organization Address [facility] Co de Phone Number [facility] ([place]) 1 [facility] [place] [address] * POCT glucose (05/17/2025 7:54 AM CDT) Glucose, POC 178 70 - 199 mg/dL Blood 05/17/2025 7:54 AM CDT 05/17/2025 7:54 AM CDT Beverly Nida Fasick DO LAB POCT ORDERABLES - DE VICE Final Result [facility]EL RICHTER ([place]) 1 [facility] [place] [address] * (ABNORMAL) eGFR (05/17/2025 5:55 AM CDT) [...] AM CDT 05/17/2025 6:19 AM CDT Beverly DunhamNovadiol LAB BLOOD ORDERABLES Fin al Result DARINEL RICHTER ([place]) 1 [facility] Department [place] [address] * (ABNORMAL) Differential, auto (05/17/2025 5:55 AM CDT) Neutrophil abs 4.90 1.50 - 6.50 K/cumm Imm gran abs 0.03 0.00 - 0.10 K/cumm [facility] ([place]) Lymphocyte abs 3.60(H) 0.80 - 3.30 K/cumm [facility] ([place]) Monocyte abs 0.48 0.20 - 0.80 K/cumm [facility] ([place]) Eosinophil abs 0.51(H) 0.00 - 0.50 K/cumm [facility] ([place]) Basophil abs 0.04 0.00 - 0.10 K/cumm [facility] ([place]) Neutrophil pct 51.3 % [facility] ([place]) Comment: Interpretive [...] BLOOD ORDERABLES Fin al Result DARINEL NEELAM ([place]) 1 [facility] [place] [address] * (ABNORMAL) CBC with auto differential (05/17/2025 [...] RDW SD 41.5 35.7 - 48.1 fL [facility] ([place]) NRBC abs 0.00 0.00 - 0.01 K/cumm [facility] ([place]) Blood 05/17/2025 5:55 AM CDT 05/17/2025 6:20 AM CDT Beverly Goff DO LAB BLOOD ORDERABLES Fin al Result Performing Organization Address City/[facility] Co de Phone Number [facility] ([place]) 1 [facility] [place] [address] * Phosphorus (05/17/2025 5:55 AM CDT) Phosphorus, pl 3.3 2.3 - 4.5 mg/dL Blood 05/17/2025 5:55 AM CDT 05/17/2025 6:19 AM CDT [facility] DO LAB BLOOD ORDERABLES Fin al Result DARINEL RICHTER ([place]) 1 [facility] [place] [address] * Magnesium (05/17/2025 5:55 AM CDT) Magnesium 1.6 1.4 - 2.5 mg/dL Blood 05/17/2025 5:55 AM CDT 05/17/2025 6:19 AM CDT Beverly Goff DO LAB BLOOD ORDERABLES Fin al Result Performing Organization Address [facility] Co de Phone Number DARINEL RICHTER ([place]) 1 [facility] [place] [address] * (ABNORMAL) Comprehensive metabolic panel (05/17/2025 5:55 [...] Fin al Result DARINEL RICHTER ([place]) 1 [facility] [place] [address] * POCT glucose (05/17/2025 1:38 AM CDT) Glucose, POC 147 70 - 199 mg/dL Blood 05/17/2025 1:38 AM CDT 05/17/2025 1:38 AM CDT Beverly Goff DO LAB POCT ORDERABLES - DE VICE Final Result D[facility]INEL RICHTER ([place]) 1 [facility] [place] [address] * POCT glucose (05/16/2025 8:49 PM CDT) Glucose, POC 161 70 - 199 mg/dL Blood 05/16/2025 8:49 PM CDT 05/16/2025 8:49 PM CDT Beverly Goff DO LAB POCT ORDERABLES - DE VICE Final Result D[facility]INEL RICHTER ([place]) 1 [facility] [place] [address] * POCT glucose (05/16/2025 4:20 PM CDT) Glucose, POC 166 70 - 199 mg/dL Blood 05/16/2025 4:20 PM CDT 05/16/2025 4:20 PM CDT Beverly Nida Denver DO LAB POCT ORDERABLES - DE VICE Final Result D[facility]EL RICHTER ([place]) 1 [facility] [place] [address] [place] [address] * (ABNORMAL) eGFR (05/16/2025 11:51 AM CDT) [...] Result DARINEL RICHTER ([place]) 1 [facility] [place] [address] [place] [address] * Differential, auto (05/16/2025 11:51 AM CDT) [...] 2018. Basophil pct 0.4 % [facility] ([place]) Comment: Interpretive Data Percent cell count reference ranges are not reported, since discordance with absolute values may lead to misinterpretation of CBC data. Current Interpretive Data was last revised on 2018. Blood 05/16/2025 11:5 1 AM CDT 05/16/2025 12:21 PM CDT Beverly Goff DO LAB BLOOD ORDERABLES Fin al Result [facility] ([place]) 1 [facility] [place] [address] * (ABNORMAL) CBC with auto differential (05/16/2025 [...] 14.9 % [facility] ([place]) RDW SD 42.1 35.7 - 48.1 fL [facility] ([place]) NRBC abs 0.00 0.00 - 0.01 K/cumm [facility] ([place]) Blood 05/16/2025 11:5 1 AM CDT 05/16/2025 12:21 PM CDT Beverly Goff DO LAB BLOOD ORDERABLES Fin al Result [facility] ([place]) 1 [facility] [place] [address] * Phosphorus (05/16/2025 11:51 AM CDT) Phosphorus, pl 3.4 2.3 - 4.5 mg/dL Blood 05/16/2025 11:5 1 AM CDT 05/16/2025 12:21 PM CDT Beverly Goff DO LAB BLOOD ORDERABLES Fin al Result Performing Organization Address City/[facility]/ZIP Co de Phone Number DARINEL RICHTER ([place]) 1 [facility] [place] [address] * Magnesium (05/16/2025 11:51 AM CDT) Pathologist [facility] Magnesium 1.6 1.4 - 2.5 mg/dL Blood 05/16/2025 11:5 1 AM CDT 05/16/2025 12:21 PM CDT Beverly Alva Rolyjaron LAB BLOOD ORDERABLES Fin al Result Performing Organization Address [facility] de Phone Number DARINEL RICHTER ([place]) 1 [facility] [place] [address] * (ABNORMAL) Comprehensive metabolic panel (05/16/2025 11:51 AM CDT) Pathologist [facility] Sodium 140 135 - 145 mmol/L [...] AM CDT 05/16/2025 12:21 PM CDT Beverly Alva Appota DO LAB BLOOD ORDERABLES Fin al Result DARINEL RICHTER ([place]) 1 [facility] [place] [address] * (ABNORMAL) POCT glucose (05/16/2025 11:42 AM CDT) Glucose, POC 227(H) 70 - 199 mg/dL Blood 05/16/2025 11:4 2 AM CDT 05/16/2025 11:42 AM CDT Polyera DO LAB POCT ORDERABLES - DE VICE Final Result DARINEL RICHTER ([place]) 1 [facility] [place] [address] * (ABNORMAL) POCT glucose (05/16/2025 7:50 AM CDT) Glucose, POC 205(H) 70 - 199 mg/dL Blood 05/16/2025 7:50 AM CDT 05/16/2025 7:50 AM CDT Beverly Goff DO LAB POCT ORDERABLES - DE VICE Final Result Performing Organization Address [facility] Co de Phone Number DARINEL BermudezISABELLE) [address] [place] [address] * POCT glucose (05/16/2025 2:22 AM CDT) Glucose, POC 143 70 - 199 mg/dL Blood 05/16/2025 2:22 AM CDT 05/16/2025 2:22 AM CDT Beverly Goff DO LAB POCT ORDERABLES - DE VICE Final Result Performing Organization Address [facility] Co ak Phone Number DARINEL RICHTER ([place]) [address] [place] [address] * (ABNORMAL) POCT glucose (05/15/2025 10:32 PM CDT) Glucose, POC 311(H) 70 - 199 mg/dL Blood 05/15/2025 10:3 2 PM CDT 05/15/2025 10:32 PM CDT Beverly Goff DO LAB POCT ORDERABLES - DE VICE Final Result Performing Organization Address [facility] Co de Phone Number DARINEL RICHTER ([place]) [address] [place] [address] * (ABNORMAL) POCT glucose (05/15/2025 8:27 PM CDT) Glucose, POC 431(H) 70 - 199 mg/dL Blood 05/15/2025 8:27 PM CDT 05/15/2025 8:27 PM CDT Beverly Goff DO LAB POCT ORDERABLES - DE VICE Final Result DARINEL RICHTER ([place]) [address] [place] [address] * POCT glucose (05/15/2025 4:49 PM CDT) Glucose, POC 136 70 - 199 mg/dL Blood 05/15/2025 4:49 PM CDT 05/15/2025 4:49 PM CDT Beverly Goff DO LAB POCT ORDERABLES - DE VICE Final Result Performing Organization Address [facility] Co de Phone Number DARINEL RICHTER ([place]) [address] [place] [address] * (ABNORMAL) POCT glucose (05/15/2025 11:54 AM CDT) Glucose, POC 296(H) 70 - 199 mg/dL Blood 05/15/2025 11:5 4 AM CDT 05/15/2025 11:54 AM CDT Beverly Goff DO LAB POCT ORDERABLES - DE VICE Final Result Performing Organization Address [facility] Co de Phone Number DARINEL RICHTER ([place]) 1 [facility] [place] [address] * (ABNORMAL) POCT glucose (05/15/2025 7:57 AM CDT) Glucose, POC 227(H) 70 - 199 mg/dL Blood 05/15/2025 7:57 AM CDT 05/15/2025 7:57 AM CDT Beverly Goff DO LAB POCT ORDERABLES - DE VICE Final Result DARINEL RICHTER ([place]) 1 [facility] [place] [address] * (ABNORMAL) eGFR (05/15/2025 3:52 AM CDT) [...] 3:52 AM CDT 05/15/2025 4:28 AM CDT us Bevelry Goff DO LAB BLOOD ORDERABLES Fin al Result DARINEL [facility] ([place]) 1 [facility] [place] [address] * (ABNORMAL) Differential, auto (05/15/2025 3:52 AM CDT) Neutrophil abs 6.62(H) 1.50 - 6.50 K/cumm Imm gran abs 0.03 0.00 - 0.10 K/cumm [facility] ([place]) Lymphocyte abs 5.19(H) 0.80 - 3.30 K/cumm [facility] ([place]) Monocyte abs 0.69 0.20 - 0.80 K/cumm [facility] ([place]) Eosinophil abs 0.69(H) 0.00 - 0.50 K/cumm [facility] ([place]) Basophil abs 0.08 0.00 - 0.10 K/cumm [facility] ([place]) Neutrophil pct 49.8 % [facility] ([place]) Comment: Interpretive [...] 2018. Monocyte pct 5.2 % [facility] ([place]) Comment: Interpretive Data [...] 3:52 AM CDT 05/15/2025 4:28 AM CDT us Beverly Goff DO LAB BLOOD ORDERABLES Fin al Result DARINEL RICHTER ([place]) 1 [facility] [place] [address] * (ABNORMAL) CBC with auto differential (05/15/2025 [...] DO LAB BLOOD ORDERABLES Fin al Result [facility] ([place] 1 [facility] [place] [address] * Phosphorus (05/15/2025 3:52 AM CDT) Phosphorus, pl 4.2 2.3 - 4.5 mg/dL Blood 05/15/2025 3:52 AM CDT 05/15/2025 4:28 AM CDT Beverly Goff DO LAB BLOOD ORDERABLES Fin al Result Performing Organization Address City/[facility]/ZIP Co de Phone Number [facility] ([place]) [address] [facility] [place] [address] * Magnesium (05/15/2025 3:52 AM CDT) Magnesium 1.8 1.4 - 2.5 mg/dL Blood 05/15/2025 3:52 AM CDT 05/15/2025 4:28 AM CDT Beverly Goff DO LAB BLOOD ORDERABLES Fin al Result [facility] ([place]) 1 [facility] Department [place] [address] * (ABNORMAL) Comprehensive metabolic panel (05/15/2025 3:52 AM CDT) Sodium 140 135 - 145 mmol/L Potassium, pl 3.7 3.3 - 4.9 mmol/L [facility] ([place]) Chloride 103 97 - 110 mmol/L [facility] ([place]) CO2 19(L) 22 - 32 mmol/L [facility] ([place]) Anion gap 18(H) 2 - 15 mmol/L [facility] ([place]) BUN 16 6 - 25 mg/dL [facility] ([place]) Creatinine 1.07 0.60 - 1.10 mg/dL [...] Fin al Result DARINEL RICHTER ([place]) 1 [facility] [place] [address] * POCT glucose (05/15/2025 2:07 AM CDT) Glucose, POC 195 70 - 199 mg/dL Blood 05/15/2025 2:07 AM CDT 05/15/2025 2:07 AM CDT Beverly Goff DO LAB POCT ORDERABLES - DE VICE Final Result Performing Organization Address City/[facility]/ZIP Co de Phone Number DARINEL RICHTER ([place]) 1 [facility] [place] [address] * (ABNORMAL) POCT glucose (05/14/2025 8:28 PM CDT) Glucose, POC 385(H) 70 - 199 mg/dL Blood 05/14/2025 8:28 PM CDT 05/14/2025 8:28 PM CDT [facility] POCT ORDERABLES - DE VICE Final Result Performing Organization Address City/[facility]/ZIP Co de Phone Number DARINEL RICHTER ([place]) 1 [facility] [place] [address] * POCT glucose (05/14/2025 4:42 PM CDT) Glucose, POC 136 70 - 199 mg/dL Blood 05/14/2025 4:42 PM CDT 05/14/2025 4:42 PM CDT Beverly Goff DO LAB POCT ORDERABLES - DE VICE Final Result DARINEL RICHTER ([place]) 1 [facility] [place] [address] * (ABNORMAL) POCT glucose (05/14/2025 11:39 AM CDT) Glucose, POC 208(H) 70 - 199 mg/dL Blood 05/14/2025 11:3 9 AM CDT 05/14/2025 11:39 AM CDT Beverly Goff DO LAB POCT ORDERABLES - DE VICE Final Result Performing Organization Address City/[facility]/ZIP Co de Phone Number DARINEL RICHTER ([place]) 1 [facility] [place] [address] * POCT glucose (05/14/2025 8:48 AM CDT) Glucose, POC 164 70 - 199 mg/dL Blood 05/14/2025 8:48 AM CDT 05/14/2025 8:48 AM CDT Beverly Goff DO LAB POCT ORDERABLES - DE VICE Final Result Performing Organization Address City/[facility] Co de Phone Number DARINEL RICHTER ([place]) 1 [facility] [place] [address] * (ABNORMAL) eGFR (05/14/2025 4:29 AM CDT) eGFR 51(L) >=60 mL/min/1. 73 m2 Comment: [...] AM CDT 05/14/2025 4:50 AM CDT us Niaf Sosa MD LAB BLOOD ORDERABLES Final Resu lt [facility] ([place]) 1 [facility] [place] [address] * (ABNORMAL) CBC with auto differential (05/14/2025 4:29 AM CDT) WBC 11.90(H) 3.80 - 9.90 K/cumm Hgb [...] BLOOD ORDERABLES Final Resu lt [facility] ([place]) 1 [facility] [place] [address] * (ABNORMAL) Manual Differential (05/14/2025 4:29 AM CDT) Differential Manual Cells Counted 100 CERNER [...] lymph pct 2.0(H) 0.0 - 0.0 % [facility] ([place]) RBC morphology Consistent with RBC Indicies [facility] ([place]) Platelet estimate Automated Count Confirmed [facility] ([place]) Blood 05/14/2025 4:29 AM CDT 05/14/2025 4:50 AM CDT us Naif Sosa MD LAB BLOOD ORDERABLES Final Resu lt [facility] ([place]) 1 [facility] [place] [address] * (ABNORMAL) Comprehensive metabolic panel (05/14/2025 4:29 [...] lt [facility] ([place]) 1 [facility] [address] [place] [address] * (ABNORMAL) Troponin T high-sensitivity 6-hour (05/13/2025 [...] 9:56 PM CDT 05/13/2025 10:02 PM CDT us Doni Briceño MD LAB BLOOD ORDERABLES Final Result [facility] ([place]) 1 [facility] [address] [place] [address] * [place] CRITICAL CARE ILL/INJURED PATIENT INIT 30-74 MIN [...] patient to a continuous cardiac monitored bed. Doni Briceño MD IN CLINIC/BEDSIDE ORDERABLE S [...] OTHER: No other significant abnormality. INTRACRANIAL VESSELS [place]: There is severe stenosis of [...] Gomez to Dr. Briceño at 8:47 p.m. HEALTH MANAGER on 05/13/2025. THIS IS AN ELECTRONICALLY VERIFIED FINAL REPORT 05/13/2025 8:59 PM - Electronically signed by Cristian Gomez M.D. AT: AT Report ID: [id number] Reading Location: [id number] Procedure Note Cristian Gomez MD - 05/13/2025 [...] OTHER: No other significant abnormality. INTRACRANIAL VESSELS [place]: There is severe stenosis of [...] poor opacification/occlusion of the distal most left [id number] with opacification of the left A2 segment [...] Cristian Gomez M.D. AT: AT Report ID: [id number] Reading Location: [place] [address] Doni Briceño MD IM CT PROCEDURES Final Res ult * (ABNORMAL) [...] BLOOD ORDERABLES Final Result Performing Organization Address [facility] de Phone Number [facility] ([place]) 1 [facility] [place] [address] * ECG 12 lead (05/13/2025 6:12 PM CDT) 05/13/2025 6:12 PM CDT Narrative [facility] - 05/14/2025 7:51 AM CDT Vent Rate: 100 bpm RR Interval: 600 msec OK Interval: 0 msec QRS Duration: 82 msec QT Interval: 348 msec QTC Interval: 405 msec P-R-T [place]: [id number] - 65 - 40 degrees IMPRESSION: Baseline artifact, probable sinus rhythm NONSPECIFIC ST \T\ T-WAVE ABNORMALITY ABNORMAL RHYTHM ECG Recommend repeat EKG with stable baseline for accurate rhythm assessment Electronically Signed By: Harjeet Mendez MD Result [facility] Doni Briceño MD ECG ORDERABLES Final Resul t Performing Organization Address [facility] Phone Number [facility] [employer] [facility] * (ABNORMAL) Troponin T high-sensitivity 2-hour (05/13/2025 [...] Result DARINEL RICHTER ([place]) 1 [facility] Department [place] [address] * (ABNORMAL) Urinalysis reflex to microscopic and [...] tendency for uric acid stone formation. Source: [facility] Current Interpretive Data was last revised [...] Leukocyte esterase, ur 4+(A) Negative [facility] ([place]) UA reflex comment Reflex to microscopic UA will be performed. [facility] ([place]) Urine 05/13/2025 4:55 PM CDT 05/13/2025 5:09 PM CDT us Doni Briceño MD LAB MICROBIOLOGY - GENERAL ORDERABLES Final Result DARINEL RICHTER ([place]) 1 [facility] [place] [address] * (ABNORMAL) Urinalysis, microscopic only (05/13/2025 4:55 [...] Reflex to urine culture will be performed. DARINEL [facility] ([place]) Urine 05/13/2025 4:55 PM CDT 05/13/2025 5:09 PM CDT us Doni Briceño MD LAB URINE ORDERABLES Final Result Performing Organization Address City/[facility]/ZIP Co de Phone Number DARINEL RICHTER ([place]) 1 [facility] Department [place] [address] * Urine culture Urine (05/13/2025 4:55 PM CDT) Report Final Report: No growth Comment:Testing performed by : [facility], [address] [place] [address] Urine 05/13/2025 4:55 PM CDT 05/13/2025 8:32 PM CDT Narrative [facility] ([place]) - 05/15/2025 8:17 AM CDT Urine culture reflexed based upon urinalysis results. Testing performed by [facility] ([phone]) us Doni Briceño MD LAB MICROBIOLOGY - GENERAL ORDERABLES Final Result DARINEL RICHTER ([place]) 1 [facility] [address] [place] [address] * (ABNORMAL) Blood gas, venous (05/13/2025 4:02 PM CDT) pH, Venous 7.62(C) 7.32 - 7.43 Comment:Critical result call ed to and read back by Terry Nguyen (ER charge) on 05/13/2025 16:26:20 CDT to [id number]. PCO2, Venous See comment 40 - 50 mmHg [facility] ([place]) Comment:pCO2 below reportabl e range, BE unable to calculate due to pCO2 value. PO2, Venous 28 mmHg DARINEL Sorensen ([place]) HCO3 Venous, Calculated See comment 20 - 30 mmol/L [facility] ([place] Comment:Unable to calculate. BE, venous See comment mmol/L [facility] ([place]) Comment: pCO2 below reportable range, BE unable to calculate due to pCO2 value. Interpretive Data No Reference Range Established Current Interpretive Data was last revised on 2018. Blood 05/13/2025 4:02 PM CDT 05/13/2025 4:06 PM CDT Doni Briceño MD LAB BLOOD ORDERABLES Final Result Performing Organization Address [facility]/ZIP Co de Phone Number DARINEL RICHTER ([place]) 1 [facility] [place] [address] * (ABNORMAL) Troponin T high-sensitivity series (baseline, 2hr, 4hr, 6hr) (05/13/2025 4:01 PM CDT) [facility] Trop T hs 25(H) <=14 ng/L Comment: Interpretive Data For further hscTnT resources including the diagnostic algorithm and an aid in interpretation, copy and paste this link: https://nrl.testcatalog.org/show/hsTrop Current Interpretive Data last revised 2020. Blood 05/13/2025 4:01 PM CDT 05/13/2025 4:54 PM CDT Doni Briceño MD LAB BLOOD ORDERABLES Final Result Performing Organization Address City/[facility]/ZIP Co de Phone Number DARINEL RICHTER ([place]) 1 [facility] Department [place] [address] * aPTT (05/13/2025 4:01 PM CDT) Pathologist [facility] aPTT 33 28 - 38 sec DARINEL [...] 05/13/2025 4:27 PM CDT Potential stroke patient. Doni Briceño MD LAB BLOOD ORDERABLES Final Result Performing Organization Address City/[facility] Co de Phone Number DARINEL RICHTER ([place]) 1 [facility] [address] [place] [address] * Protime-INR (05/13/2025 4:01 PM CDT) PT [...] BLOOD ORDERABLES Final Result Performing Organization Address City/[facility]/ZIP Co de Phone Number DARINEL RICHTER ([place]) 1 [facility] [place] [address] * ECG 12 lead (05/13/2025 3:54 PM CDT) 05/13/2025 3:54 PM CDT Narrative [facility] - 05/13/2025 4:01 PM CDT Vent Rate: 97 bpm RR Interval: 617 msec OK Interval: 144 msec QRS Duration: 90 msec QT Interval: 363 msec QTC Interval: 417 msec P-R-T [place]: 152 - 140 - 171 degrees IMPRESSION: SINUS RHYTHM WITH OCCASIONAL VENTRICULAR PREMATURE COMPLEXES ARM LEADS REVERSED [INVERTED P AND QRS IN I] Rare to prior EKG, limb lead reversal now seen and PVC is new. Electronically Signed By: Dr Javier Hartman us Doni Briceño MD ECG ORDERABLES Final Resul t [employer] * CT Stroke Head WO Contrast (05/13/2025 [...] Dr. Briceño on 05/13/2025 at 3:56 p.m. HEALTH MANAGER . IMPRESSION: Significantly motion compromised examination. Grossly stable right subdural collection. While no definite acute intracranial abnormality is seen, evaluation is significantly compromised by motion artifact. THIS IS AN ELECTRONICALLY VERIFIED FINAL REPORT 05/13/2025 3:56 PM - Electronically signed by Jamari Maza M.D., JR: Report ID: [id number] Reading Location: [id number] Procedure Note Jamari Maza MD - 05/13/2025 [...] to Dr. Pena 05/13/2025 at 3:56 p.m. HEALTH MANAGER . IMPRESSION: Significantly motion compromised examination. Grossly stable rightsubdural collection. While no definite acute intracranial abnormality is seen, evaluation is significantly compromised by motion artifact. THIS IS AN ELECTRONICALLY VERIFIED FINAL REPORT 05/13/2025 3:56 PM - Electronically signed by aJmari Maza M.D. JR: Report ID: [id number] Reading Location: [id number] Doni Briceño MD IMG CT PROCEDURES Final Res ult * Troponin T high-sensitivity series (baseline, 2hr, 4hr, 6hr) (05/13/2025 3:35 PM CDT) Trop T hs See comment <=14 ng/L Comment: Too Heamolysed for Trop. Interpretive Data For further hscTnT resources including the diagnostic algorithm and an aid in interpretation, copy and paste this link: https://nrl.testcatalog.org/show/hsTrop Current Interpretive Data last revised 2020. Blood 05/13/2025 3:35 PM CDT 05/13/2025 3:38 PM CDT Doni Briceño MD LAB BLOOD ORDERABLES Final Result [facility] ([place]) [address] [place] [address] Department [place] [address] * (ABNORMAL) eGFR (05/13/2025 3:35 PM CDT) [...] Result [facility] ([place]) 1 [facility] [place] [address] * (ABNORMAL) CBC with auto differential (05/13/2025 3:35 PM CDT) Pathologist [facility] WBC 12.42(H) 3.80 - 9.90 K/cumm Hgb [...] PM CDT 05/13/2025 3:38 PM CDT Narrative [facility] ([place]) - 05/13/2025 4:07 PM CDT Potential Stroke Patient Doni Briceño MD LAB BLOOD ORDERABLES Edited Result - Final [facility] ([place]) 1 [facility] [place] [address] * (ABNORMAL) Manual Differential (05/13/2025 3:35 PM [...] revised on 2018. Monocyte pct 3.0 % [facility] ([place]) Comment: Interpretive Data [...] Neutrophil pct 1.0 0.0 - 5.0 % [facility] ([place]) RBC morphology Consistent with RBC Indicies [facility] ([place]) Platelet estimate Automated Count Confirmed [facility] ([place]) Blood 05/13/2025 3:35 PM CDT 05/13/2025 3:38 PM CDT Doni Briceño MD LAB BLOOD ORDERABLES Final Result DARINEL RICHTER ([place]) 1 [facility] [place] [address] * (ABNORMAL) Comprehensive metabolic panel (05/13/2025 3:35 PM CDT) Sodium 138 135 - 145 mmol/L Potassium, pl 4.5 3.3 - 4.9 mmol/L [facility] ([place]) Comment:Moderately Hemolyzed Specimen. Results may be affected. Chloride 103 97 - 110 mmol/L [facility] ([place]) CO2 14(L) 22 - 32 mmol/L [facility] ([place]) Anion gap 21(H) 2 - 15 mmol/L [facility] ([place]) BUN 18 6 - 25 mg/dL [facility] ([place]) Creatinine 1.09 0.60 - 1.10 mg/dL [facility] ([place]) Glucose 107 70 - 199 mg/dL [facility] ([place]) [...] PM CDT 05/13/2025 3:38 PM CDT Narrative DARINEL RICHTER ([place]) - 05/13/2025 4:05 PM CDT Potential Stroke Patient Doni Briceño MD LAB BLOOD ORDERABLES Final Result Performing Organization Address City/[facility]/ZIP Co de Phone Number DARINEL RICHTER ([place]) 1 [facility] [place] [address] * POCT glucose (05/13/2025 3:31 PM CDT) Glucose, POC 100 70 - 199 mg/dL Blood 05/13/2025 3:31 PM CDT 05/13/2025 3:31 PM CDT us Notinfile Unknown LAB POCT ORDERABLES - DEVICE F inal Result Performing Organization Address [facility] Co de Phone Number DARINEL RICHTER ([place]) 1 [facility] [place] [address] * [place] CRITICAL CARE ILL/INJURED PATIENT INIT 30-74 MIN [...] 6:18 PM - Electronically signed by Jeff Wade M.D. MJ: SHARRI Report ID: [id number] Reading Location: [id number] Procedure Note Jeff Wade MD - 05/09/2025 [...] 6:18 PM - Electronically signed by Jeff Wade M.D. MJ: SHARRI Report ID: [id number] Reading Location: [id number] Doni Briceño MD IMG XR PROCEDURES Final [...] LAB BLOOD ORDERABLES Final Result DARINEL NEELAM ([place]) 1 [facility] [place] [address] * XR Knee Right 3 Views (05/09/2025 [...] Cristian Gomez M.D. AT: AT Report ID: [id number] Reading Location: [id number] Procedure Note Cristian Gomez MD - 05/09/2025 [...] Cristian Gomez M.D. AT: AT Report ID: [id number] Reading Location: [id number] us Doni Briceño MD IMG XR PROCEDURES [...] Cristian Gomez M.D. AT: AT Report ID: [id number] Reading Location: [id number] Procedure Note Cristian Gomez MD - 05/09/2025 [...] Cristian Gomez M.D. AT: AT Report ID: [id number] Reading Location: [id number] us Doni Briceño MD IMG XR PROCEDURES [...] fracture. Vertebral body heights well-maintained. Multilevel bilateral kdtt-py-bglrffwa facet arthrosis. DISCS: Multilevel degenerative disc disease, most pronounced at C4-C5 and C7-T1. INDIVIDUAL LEVELS: No high-grade spinal canal stenosis. Mild bilateral neural foraminal narrowing at C5-C6. UPPER THORACIC: Incompletely imaged. No significant osseous spinal stenosis or osseous neural foraminal stenosis. SKULL BASE: No significant finding. LUNG APICES: No significant abnormality. NECK SOFT TISSUES: Redemonstrated densely calcified nodules in the vhyqn-cfcrcih-sxxd-left thyroid glands. OTHER: No other significant findings. IMPRESSION: 1. No acute findings of the cervical spine. 2. Multilevel spondylosis as above. THIS IS AN ELECTRONICALLY VERIFIED FINAL REPORT 05/09/2025 4:32 PM - Electronically signed by Christopher Barney M.D. KR: RAY Report ID: [id number] Reading Location: [id number] Procedure Note Christopher Barney MD - 05/09/2025 [...] No fracture. Vertebral body heights well-maintained.Multilevel bilateral uruc-tq-vwdzmlny facet arthrosis. DISCS: Multilevel degenerative disc disease, most pronounced at C4-C5and C7-T1. INDIVIDUAL LEVELS: No high-grade spinal canal stenosis. Mild bilateral neural foraminal narrowing at C5-C6. UPPER THORACIC: Incompletely imaged. No significant osseous spinalstenosis or osseous neural foraminal stenosis. SKULL BASE: No significant finding. LUNG APICES: No significant abnormality. NECK SOFT TISSUES: Redemonstrated densely calcified nodules in the bveas-amsmvau-fhsk-left thyroid glands. OTHER: No other significant findings. IMPRESSION: 1. No acute findings of the cervical spine. 2. Multilevel spondylosis as above. THIS IS AN ELECTRONICALLY VERIFIED FINAL REPORT 05/09/2025 4:32 PM - Electronically signed by Christopher Barney M.D. KR: RAY Report ID: [id number] Reading Location: [id number] Doni Briceño MD IMG CT PROCEDURES Final Res ult * ECG 12 lead (05/09/2025 4:19 PM CDT) 05/09/2025 4:19 PM CDT Narrative [facility] - 05/10/2025 5:50 PM CDT Vent Rate: 83 bpm RR Interval: 715 msec OK Interval: 144 msec QRS Duration: 82 msec QT Interval: 359 msec QTC Interval: 399 msec P-R-T [place]: 44 - 68 - 63 degrees IMPRESSION: SINUS RHYTHM NONSPECIFIC T-WAVE ABNORMALITY BORDERLINE ECG NO CHANGE FROM PREVIOUS TRACING NOTED Electronically Signed By: Harjeet Mendez MD Doni Briceño MD ECG ORDERABLES Final Resul t [facility] [employer] [facility] * CT Stroke Head WO Contrast (05/09/2025 [...] Christopher Barney M.D. KR: RAY Report ID: [id number] Reading Location: [id number] Procedure Note Christopher Barney MD - 05/09/2025 [...] 4:28 PM - Electronically signed by Christopher BELL: RAY Report ID: [id number] Reading Location: [id number] us Doni Briceño MD IMG CT PROCEDURES Final [...] 4:06 PM CDT 05/09/2025 4:10 PM CDT us Doni Briceño MD LAB BLOOD ORDERABLES Final Result DARINEL RICHTER ([place]) 1 [facility] Department [place] [address] * (ABNORMAL) eGFR (05/09/2025 4:06 PM CDT) [...] 4:06 PM CDT 05/09/2025 4:10 PM CDT us Doni Briceño MD LAB BLOOD ORDERABLES Final Result [facility] ([place]) 1 [facility] [place] [address] * (ABNORMAL) CBC with auto differential (05/09/2025 4:06 PM CDT) [facility] WBC 13.12(H) 3.80 - 9.90 K/cumm Hgb 11.7(L) 11.9 - 15.5 g/dL [facility] ([place]) Hct 34.5(L) 35.6 - 45.5 % [facility] ([place]) Plt 354 150 - 400 K/cumm CERNER [...] CDT Narrative [facility] ([place]) - 05/09/2025 4:12 PM CDT Potential Stroke Patient us Doni Briceño MD LAB BLOOD ORDERABLES Final Result [facility] ([place]) 1 [facility] Department [place] [address] * (ABNORMAL) Manual Differential (05/09/2025 4:06 PM CDT) [facility] Differential Manual Cells Counted 100 [facility] [...] revised on 2018. Eosinophil pct 6.0 % [facility] ([place]) Comment: Interpretive [...] RBC Indicies [facility] ([place]) Platelet estimate Adequate CE [facility] ([place]) Blood 05/09/2025 4:06 PM CDT 05/09/2025 4:10 PM CDT Doni Briceño MD LAB BLOOD ORDERABLES Final Result Performing Organization Address [facility]/ZIP Co de Phone Number DARINEL RICHTER ([place]) 1 [facility] [place] [address] * aPTT (05/09/2025 4:06 PM CDT) aPTT 34 28 - 38 sec DARINEL RICHTER ([place]) Comment: Interpretive Data Heparin therapeutic range: 66.0 - 100.0 seconds. Range based on correlation with therapeutic heparin activity range of 0.3 - 0.7 Units/mL. Current interpretive data was last revised on 2023. Blood Venous blood specimen / Unknown 05/09/2025 4:06 PM CDT 05/09/2025 4:10 PM CDT Narrative DARINEL RICHTER ([place]) - 05/09/2025 4:36 PM CDT Potential stroke patient. Doni Briceño MD LAB BLOOD ORDERABLES Final Result Performing Organization Address [facility] Co de Phone Number DARINEL RICHTER ([place]) 1 [facility] [place] [address] * Protime-INR (05/09/2025 4:06 PM CDT) PT 12.2 9.7 - 13.0 sec DARINEL RICHTER ([place]) INR 1.13 0.90 - 1.20 DARINEL RICHTER ([place]) Comment: Interpretive data Oral anticoagulant therapeutic ranges: Venous thromboembolism prophylaxis or treatment: 2.0-3.0 CARDIOLOGY Standard range: 2.0-3.0 High-intensity range: 2.5-3.5 Refer to indication-specific guidelines for appropriate target ranges for prosthetic heart valve replacement. Current interpretive data was last revised on 2019. Blood 05/09/2025 4:06 PM CDT 05/09/2025 4:10 PM CDT Doni Briceño MD LAB BLOOD ORDERABLES Final Result Performing Organization Address City/[facility] Co de Phone Number DARINEL RICHTER ([place]) 1 [facility] [place] [address] * (ABNORMAL) Comprehensive metabolic panel (05/09/2025 4:06 PM CDT) Sodium 137 135 - 145 mmol/L Potassium, pl 3.9 3.3 - 4.9 mmol/L [facility] ([place]) Chloride 102 97 - 110 mmol/L [facility] ([place]) CO2 18(L) 22 - 32 mmol/L [facility] ([place]) Anion gap 18(H) 2 - 15 mmol/L [facility] ([place]) BUN 15 6 - 25 mg/dL [facility] ([place]) Creatinine 1.07 0.60 - 1.10 mg/dL [facility] ([place]) Glucose 168 70 - 199 mg/dL [facility] ([place]) [...] 05/09/2025 4:34 PM CDT Potential Stroke Patient Doni Briceño MD LAB BLOOD ORDERABLES Final Result Performing Organization Address City/[facility]/ZIP Co de Phone Number DARINEL RICHTER ([place]) 1 [facility] [place] [address] * POCT glucose (05/09/2025 4:04 PM CDT) Glucose, POC 147 70 - 199 mg/dL Blood 05/09/2025 4:04 PM CDT 05/09/2025 4:04 PM CDT Doni Briceño MD LAB POCT ORDERABLES - DEVIC E Final Result Performing Organization Address [facility] Co de Phone Number DARINEL RICHTER ([place]) [address] [place] [address] * Urinalysis reflex to microscopic and culture Urine (05/04/2025 5:49 PM CDT) Color, ur Yellow Yellow Clarity, ur Clear Clear CERNER A ([place]) Specific gravity, ur 1.014 1.003 - [...] tendency for uric acid stone formation. Source: [facility] Current Interpretive Data was last revised on [...] MH ([place]) Leukocyte esterase, ur Negative Negative DARINEL RICHTER ([place]) UA reflex comment Reflex conditions for microscopic UA and culture not met. DARINEL RICHTER ([place]) Urine 05/04/2025 5:49 PM CDT 05/04/2025 5:49 PM CDT Neil Courtney MD LAB MICROBIOLOGY - GENERAL ORD ERABLES Final Result DARINEL RICHTER ([place]) 1 [facility] [place] [address] * CT Stroke Head WO Contrast (05/04/2025 [...] Christopher Lemon M.D. KH: DREA Report ID: [id number] Reading Location: [place] [address] Procedure Note Christopher Lemon MD - 05/04/2025 [...] Christopher Lemon M.D. KH: DREA Report ID: [id number] Reading Location: [place] [address] Neil Courtney MD IMG CT PROCEDURES Final Result * ECG 12 lead (05/04/2025 4:53 PM CDT) 05/04/2025 4:53 PM CDT Narrative [facility] - 05/05/2025 8:41 AM CDT Vent Rate: 87 bpm RR Interval: 687 msec OK Interval: 138 msec QRS Duration: 100 msec QT Interval: 368 msec QTC Interval: 412 msec P-R-T [place]: 49 - 60 - 48 degrees IMPRESSION: SINUS RHYTHM WITH OCCASIONAL VENTRICULAR PREMATURE COMPLEXES MINIMAL ST DEPRESSION [0.025+ mV ST DEPRESSION] BORDERLINE ECG No change compared to prior EKG Electronically Signed By: Rigo Grace MD [facility] Neil Courtney MD ECG ORDERABLES Final Result [facility] * (ABNORMAL) eGFR (05/04/2025 4:51 PM CDT) [...] MD LAB BLOOD ORDERABLES Final Res ult [facility] ([place]) 1 [facility] [place] [address] * (ABNORMAL) Differential, auto (05/04/2025 4:51 PM CDT) Neutrophil abs 5.66 1.50 - 6.50 K/cumm Imm gran abs 0.03 0.00 - 0.10 K/cumm [facility] ([place]) Lymphocyte abs 5.29(H) 0.80 - 3.30 [...] MD LAB BLOOD ORDERABLES Final Res ult [facility] ([place] 1 [facility] Department of Laboratories [place], [place] [id number] * (ABNORMAL) CBC with auto differential (05/04/2025 [...] RDW CV 13.6 11.1 - 14.9 % [facility] ([place]) RDW SD 41.1 35.7 - 48.1 fL [facility] ([place]) NRBC abs 0.00 0.00 - 0.01 K/cumm DARINEL [facility] ([place]) Morphologic Screen Results confirmed by manual morphology review. [facility] ([place]) Blood 05/04/2025 4:51 PM CDT 05/04/2025 4:54 PM CDT Neil Courtney MD LAB BLOOD ORDERABLES Edited Re sult - Final D[facility]INEL [facility] ([place]) 1 [facility] [address] [place] [address] * Protime-INR (05/04/2025 4:51 PM CDT) PT 11.6 9.7 - 13.0 sec D[facility]INEL [facility] ([place]) INR 1.07 0.90 - 1.20 [facility] ([place]) Comment: Interpretive data Oral anticoagulant therapeutic ranges: Venous thromboembolism prophylaxis or treatment: 2.0-3.0 CARDIOLOGY Standard range: 2.0-3.0 High-intensity range: 2.5-3.5 Refer to indication-specific guidelines for appropriate target ranges for prosthetic heart valve replacement. Current interpretive data was last revised on 2019. Blood 05/04/2025 4:51 PM CDT 05/04/2025 4:54 PM CDT Neil Courtney MD LAB BLOOD ORDERABLES Final Res ult [facility] ([place]) 1 [facility] [address] [place] [address] * (ABNORMAL) Comprehensive metabolic panel (05/04/2025 4:51 PM CDT) Sodium 141 135 - 145 mmol/L Potassium, pl 3.9 3.3 - 4.9 mmol/L [facility] ([place]) Chloride 105 97 - 110 mmol/L [...] - 130 Units/L [facility] ([place]) ALT 28 7 - 45 Units/L [facility] ([place]) AST 27 10 - 45 Units/L [facility] ([place]) Blood 05/04/2025 4:51 PM CDT 05/04/2025 4:54 PM CDT us Neil Courtney MD LAB BLOOD ORDERABLES Final Res ult [facility] ([place]) 1 [facility] Department [place] [address] * (ABNORMAL) POCT glucose (05/04/2025 4:42 PM CDT) Glucose, POC 260(H) 70 - 199 mg/dL Blood 05/04/2025 4:42 PM CDT 05/04/2025 4:42 PM CDT us Notinfile Unknown LAB POCT ORDERABLES - DEVICE F inal Result [facility] ([place]) 1 [facility] Department [place] [address] * (ABNORMAL) POCT glucose (04/13/2025 11:32 AM CDT) Glucose, POC 203(H) 70 - 199 mg/dL Blood 04/13/2025 11:3 2 AM CDT 04/13/2025 11:32 AM CDT Al Ramírez II, MD LAB POCT ORDERABLES - DEVICE Final Result Performing Organization Address City/[facility]/ZIP Co de Phone Number [facility] ([place]) 1 [facility] [place] [address] * (ABNORMAL) eGFR (04/13/2025 7:44 AM CDT) [facility] eGFR 51(L) >=60 mL/min/1. 73 m2 Comment: [...] DO LAB BLOOD ORDERABLES Fin al Result [facility] ([place]) 1 [facility] Department [place] [address] * (ABNORMAL) Differential, auto (04/13/2025 7:44 AM CDT) Neutrophil abs 4.82 1.50 - 6.50 K/cumm Imm gran abs 0.02 0.00 - 0.10 K/cumm [facility] ([place]) Lymphocyte abs 3.80(H) 0.80 - 3.30 K/cumm [facility] ([place]) Monocyte abs 0.54 0.20 - 0.80 K/cumm [facility] ([place]) Eosinophil abs 0.64(H) 0.00 - 0.50 K/cumm [facility] ([place]) Basophil abs 0.08 0.00 - 0.10 K/cumm [facility] ([place]) Neutrophil pct 48.6 % [facility] ([place]) Comment: Interpretive Data Percent cell count reference [...] Result [facility] ([place]) 1 [facility] Department [place] [address] * (ABNORMAL) CBC with auto differential (04/13/2025 [...] AM CDT 04/13/2025 8:00 AM CDT Beverly [facility] LAB BLOOD ORDERABLES Fin al Result Performing Organization Address [facility] Co de Phone Number DARINEL R[facility] ([place]) 1 [facility] [place] [address] * (ABNORMAL) Levetiracetam level (04/13/2025 7:44 AM CDT) Levetiracetam (Keppra) 43.9(H) 10.0 - 40.0 mcg/mL Her ref Lab Comment: ADDITIONAL INFORMATION This test was developed and its performance characteristics determined by [facility] in a manner consistent with CLIA requirements. This test has not been cleared or approved by the U.S. Food and Drug Administration. Test Performed by: [facility] [address] [place] [address] Tech Ed Teacher: Salvatore Larson Ph.D.; CLIA# [id number] Blood 04/13/2025 7:44 AM CDT 04/13/2025 8:00 AM CDT Narrative [facility]EL [facility] ([place]) - 04/15/2025 1:25 PM CDT please add on to previous labs Beverly Goff DO LAB BLOOD ORDERABLES Fin al Result Performing Organization Address [facility]/ZIP Co de Phone Number D[facility]INEL [facility] ([place]) 1 [facility] [place] [address] [facility] ref [facility] * Phosphorus (04/13/2025 7:44 AM CDT) Phosphorus, pl 3.1 2.3 - 4.5 mg/dL Blood 04/13/2025 7:44 AM CDT 04/13/2025 8:00 AM CDT Beverly Goff DO LAB BLOOD ORDERABLES Fin al Result Performing Organization Address City/[facility]/ZIP Co de Phone Number D[facility]INEL [facility] ([place]) 1 [place] [address] * Magnesium (04/13/2025 7:44 AM CDT) Magnesium 1.6 1.4 - 2.5 mg/dL Blood 04/13/2025 7:44 AM CDT 04/13/2025 8:00 AM CDT Beverly Goff LAB BLOOD ORDERABLES Fin al Result Performing Organization Address [facility] de Phone Number DARINEL [facility] ([place]) [address] [place] [address] * (ABNORMAL) Hemoglobin A1c (04/13/2025 7:44 AM CDT) Hgb A1C 7.3(H) 4.0 - 5.6 % Estimated Average Glucose 163 mg/dL [facility] ([place]) Comment: The ADA recommends reporting an estimated Average Glucose (eAG) with all Hemoglobin A1c results using the equation derived from a study of 507 normal and diabetic adults. Minority populations were underrepresented and children were not included. (Diabetes Care 31:1374-6922, 2008). The eAG is not equivalent to a fasting glucose. Blood 04/13/2025 7:44 AM CDT 04/13/2025 8:28 AM CDT Al Ramírez II, MD LAB BLOOD ORDERABLES F inal Result Performing Organization Address City/[facility] Co de Phone Number DARINEL R[facility] ([place]) 1 [facility] [place] [address] * (ABNORMAL) Comprehensive metabolic panel (04/13/2025 7:44 [...] Result [facility] ([place]) 1 [facility] [place] [address] * POCT glucose (04/13/2025 7:41 AM CDT) Glucose, POC 158 70 - 199 mg/dL Blood 04/13/2025 7:41 AM CDT 04/13/2025 7:41 AM CDT us Al Ramírez II, MD LAB POCT ORDERABLES - DEVICE Final Result [facility] ([place]) 1 [facility] [place] [address] * OK CRITICAL CARE ILL/INJURED PATIENT INIT 30-74 MIN [...] 3:19 AM CDT 04/13/2025 3:19 AM CDT Beverly Goff DO LAB POCT ORDERABLES - DE VICE Final Result [facility]INEL [facility] ([place]) 1 [facility] [place] [address] * CT Head WO Contrast (04/12/2025 9:04 [...] Vidal Ibarra M.D. MM: MM Report ID: [id number] Reading Location: [id number] Procedure Note Vidal Ibarra MD - 04/12/2025 [...] Vidal Ibarra M.D. MM: MM Report ID: [id number] Reading Location: [id number] Rupa [facility]IG[facility] IMG CT PROCEDURES Final R esult * Urinalysis reflex to microscopic and culture Urine (04/12/2025 6:06 PM CDT) Color, ur Yellow Yellow Clarity, ur Clear Clear [facility] ([place]) Specific gravity, ur 1.015 1.003 - 1.030 [facility] ([place]) pH, urine 5.5 [facility] ([place]) Comment: Interpretive Data U rine pH is affected by diet, medications, systemic acid-base disturbances, and renal tubular function. pH may affect urinary stone formation. For example, urine pH below 6.0 may help reduce the tendency for calcium phosphate stones and pH greater than 6.0 may reduce the tendency for uric acid stone formation. Source: [facility] [employer] Current Interpretive Data was last revised on [...] culture not met. [facility] ([place]) Urine 04/12/2025 6:06 PM CDT 04/12/2025 6:08 PM CDT us Rupa RIGGINS LAB MICROBIOLOGY - GENERA L ORDERABLES Final Result D[facility]INEL [facility] [place] 1 [facility] [place] [address] * CT Head WO Contrast (04/12/2025 3:15 [...] Gomez to RUPA PERERA at 3:32 p.m. HEALTH MANAGER on 04/12/25. THIS IS AN ELECTRONICALLY VERIFIED FINAL REPORT 04/12/2025 4:34 PM - Electronically signed by Cristian Gomez M.D. AT: AT Report ID: [id number] Reading Location: [id number] Procedure Note Cristian Gomez MD - 04/12/2025 [...] Dr. Gomez to RUPA PERERA at 3:32 p.m.HEALTH MANAGER on 04/12/25. THIS IS AN ELECTRONICALLY VERIFIED FINAL REPORT 04/12/2025 4:34 PM - Electronically signed by Cristian Gomez M.D. AT: AT Report ID: [id number] Reading Location: [place] [address] [address] [facility] IMG [address] PROCEDURES Final [...] 3:12 PM CDT 04/12/2025 3:14 PM CDT Rupa RIGGINS LAB BLOOD ORDERABLES Aracelis l Result DARINEL R[facility]TER ([place]) 1 [facility] [place] [address] * (ABNORMAL) Basic metabolic panel (04/12/2025 3:12 PM CDT) Sodium 139 135 - 145 mmol/L Potassium, pl 4.3 3.3 - 4.9 mmol/L [facility] ([place]) Chloride 103 97 - 110 mmol/L [facility] ([place]) CO2 21(L) 22 - 32 mmol/L [facility] ([place]) Anion gap 15 2 - 15 mmol/L [facility] ([place]) BUN 22 6 - 25 mg/dL [facility] ([place]) Creatinine 1.20(H) 0.60 - 1.10 [...] 2022. Calcium 9.8 8.5 - 10.3 mg/dL [facility] ([place]) Blood 04/12/2025 3:12 PM CDT 04/12/2025 3:14 PM CDT Rupa RIGGINS LAB BLOOD ORDERABLES Aracelis l Result DARINEL RICHTER ([place]) 1 [facility] [place] [address] * XR Chest 1 Vw Portable (04/12/2025 [...] Vidal Ibarra M.D. MM: MM Report ID: [id number] Reading Location: [id number] Procedure Note Vidal Ibarra MD - 04/12/2025 [...] Vidal Ibarra M.D. MM: MM Report ID: [id number] Reading Location: [id number] Ruap RIGGINS IMG XR PROCEDURES Final R esult * Levetiracetam level (04/12/2025 2:26 PM CDT) Levetiracetam (Keppra) 35.4 10.0 - 40.0 mcg/mL Her ref Lab Comment: ADDITIONAL INFORMATION This test was developed and its performance characteristics determined by [facility] in a manner consistent with CLIA requirements. This test has not been cleared or approved by the U.S. Food and Drug Administration. Test Performed by: [facility] [place] [address] Tech Ed Teacher: Salvatore Larson Ph.D.; CLIA# [id number] Blood 04/12/2025 2:26 PM CDT 04/12/2025 2:29 PM CDT Rupa RIGGINS LAB BLOOD ORDERABLES Aracelis l Result [facility] ([place]) 1 [facility] [place] [address] [facility] ref [facility] * (ABNORMAL) eGFR (04/12/2025 2:09 PM CDT) eGFR 48(L) >=60 mL/min/1. 73 m2 Comment: [...] 2:09 PM CDT 04/12/2025 2:14 PM CDT Rupa RIGGINS LAB BLOOD ORDERABLES Aracelis lyle Result [facility] ([place]) 1 [facility] [place] [address] * (ABNORMAL) Differential, auto (04/12/2025 2:09 PM [...] 2:09 PM CDT 04/12/2025 2:14 PM CDT Rupa RIGGINS LAB BLOOD ORDERABLES Aracelis alvarenga Result [facility] ([place]) 1 [facility] [place] [address] * (ABNORMAL) CBC with auto differential (04/12/2025 [...] us Rupa RIGGINS LAB BLOOD ORDERABLES Aracelis lyle Result [facility] ([place]) 1 [facility] [place] [address] * (ABNORMAL) Comprehensive metabolic panel (04/12/2025 2:09 [...] Protein, pl 7.3 6.5 - 8.5 g/dL [facility] ([place]) Albumin 4.0 3.5 - 5.0 g/dL [facility] ([place]) Alk phos 124 40 - 130 Units/L [facility] ([place]) ALT 20 7 - 45 Units/L [facility] ([place]) Comment: Hemolysis present. Results may be affected. Moderately Hemolyzed Specimen AST 33 10 - 45 Units/L [facility] ([place]) Comment: Hemolysis present. Results may be affected. Moderately Hemolyzed Specimen Blood 04/12/2025 2:09 PM CDT 04/12/2025 2:14 PM CDT Rupa RIGGINS LAB BLOOD ORDERABLES Aracelis l Result DARINEL [facility] ([place]) 1 [facility] [place] [address] * (ABNORMAL) Thyroid Function [place] (04/12/2025 2:08 PM CDT) TSH 10.72(H) 0.30 - 4.20 mcIUnit/mL Blood 04/12/2025 2:08 PM CDT 04/12/2025 3:03 PM CDT Rupa RIGGINS LAB BLOOD ORDERABLES Aracelis l Result DARINEL [facility] ([place]) 1 [facility] [place] [address] * T4, free (04/12/2025 2:08 PM CDT) Free T4 1.13 0.90 - 1.70 ng/dL Blood 04/12/2025 2:08 PM CDT 04/12/2025 3:03 PM CDT Narrative [facility] ([place]) - 04/12/2025 3:47 PM CDT This test was reflexed from a TSH result. Rupa RIGGINS LAB BLOOD ORDERABLES Aracelis l Result Performing Organization Address City/[facility]/ZIP Co de Phone Number DARINEL MCDERMOTT) 1 [facility] [place] [address] * ECG 12 lead (04/12/2025 2:07 PM CDT) 04/12/2025 2:07 PM CDT Narrative [facility] - 04/14/2025 7:23 AM CDT Vent Rate: 71 bpm RR Interval: 842 msec OK Interval: 0 msec QRS Duration: 86 msec QT Interval: 372 msec QTC Interval: 394 msec P-R-T [place]: [id number] - 55 - 61 degrees IMPRESSION: SUPRAVENTRICULAR RHYTHM Compared to prior EKG, P waves are not well seen now. Electronically Signed By: Dr Javier Hartman Rpua RIGGINS ECG ORDERABLES Final Res ult Performing Organization Address [facility] Co de Phone Number [facility] [employer] [facility] * XR Clavicle Bilateral Complete (04/02/2025 12:23 [...] osteolysis. No left clavicular fracture. Procedure Note Renaldo Gaitan, Hever Van MD - 04/02/2025 EXAMINATION: XR CLAVICLE BILATERAL [...] revised on 2018. HDL 25(L) >=40 mg/dL D[facility]INEL [facility] Comment: Interpretive Data [...] on 2018. LDL, calculated 75 <=129 mg/dL [facility] Comment: Interpretive Data Ages [...] revised on 2024. Non-HDL Cholesterol 127 mg/dL [facility] Comment: Interpretive Data Ages [...] PM CDT 01/20/2025 12:36 PM CDT us Bernardo Lorenz MD LAB BLOOD ORDERABLES Final Resul t [facility]INEL [facility] [place] [address] from Last 3 Months or Most Recently Relevant to Health Maintenance Additional Health Concerns Infection Onset Date Last Indicated C. difficile 2025 2025 Insurance AET SENIOR [facility] MEDICARE MEDICARE [employer]ET[employer] SENIOR SUPPLEMENT MEDICARE AET[employer] SENIOR SUPPLEMENT Advance Directives For more information, please contact: [phone] Documents on File Type Date Recorded Patient Tdp Displays Analyst Expl anation ADVANCE DIRECTIVE 06/02/2025 11:26 AM [...] Agents on File Name Relationship Healthcare Agent [facility] Care Teams Activated Sludge Attendant Relationship Specialty Start Date End Date Tatum Rice DO PCP - General 05/30/22
--- OUTSIDE RECORDS SUMMARY | 2025-06-15 14:16 | XMS_ITS | Encounter Summary ---
Author Organization [facility] Address [address] [place] [address] Care Team Providers Care Mutuel Department Manager Name Role Phone Tatum Rice DO Primary Care Provider [phone] Rasheed Rebolledo DO Unavailable Unavailable Rasheed Rebolledo DO Primary Care Provider Unavail able Tatum Rice DO Primary Care Provider [phone] Jazmín San MD Unavailable Tatum Rice DO Unavailable Amie Hickman MD Primary Care Provider [phone] Gautam Carlson MD Unavailable Reason for Visit * Reason Onset Date Comments Med Question 01/04/2019 Encounter Details Date Type Department Care Team (Late st Contact Info) Description 01/04/2019 Telephone [facility] General Internal Medicine [address] [facility] [address] [place] [address] Tatum Rice DO [address] [facility] [place] [id number] Med Question Social History Tobacco Use Types Packs/Day Years Used Date Smoking Tobacco: Never Smokeless Tobacco: Never Alcohol Use Standard Drinks/Week Comments No 0 (1 standard drink = 0.6 oz pur e alcohol) Comments No Sex and Gender Information Value Date Recorded Sex Assigned at Not on file Legal Sex Female 2:03 PM LINE SERVICER Gender Identity Not on file Sexual Orientation [...] for today Pharmacy verified with the pt SERVICER documented in this encounter Plan of Treatment Not on file documented as of this encounter Visit Diagnoses Not on filedocumented in this encounter Care Teams Mutuel Department Manager Relationship Specialty Start Date End Date Tatum Rice DO [address] [place] [address] PCP - General 12/17/18 05/12/19 Rasheed Rebolledo DO [address] [place] [address] PCP - General 07/04/19 01/05/21 Tatum Rice DO [address] [facility] [address] DIV [place] [address] PCP - General 01/06/21 12/12/23 Amie Hickman MD [address] [facility] DIV OF INT MED [address] [place] [phone] PCP - General Internal Medicine 08/27/24 Rasheed Rebolledo DO [address] [place] [address] Resident - PCP Student Resident 07/04/19 06/17/21 Jazmín San MD [address] [facility] [place] [address] Resident - PCP Student Resident 06/18/21 08/26/24 Tatum Rice DO [address] [facility] [address] DIV OF [facility] [place] [address] Physician Internal Medicine 12/28/23 Gautam Carlson MD [address] [facility] [address] [place] [address] Hematology and Oncology 11/27/24 documented as of this encounter
--- OUTSIDE RECORDS SUMMARY | 2025-06-15 14:16 | XMS_ITS | Clinical Summary ---
Author Organization [facility] [id number] [facility] Address [address] [place] [address] Care Team Providers Care Manager Learning Name Role Phone Tatum Rice Primary Care [...] 2 Active fluticasone propionate (FLONASE) 50 mcg/spray [place], Suspension nasal inhaler SPRAY TWO (2) (TWO) [...] 50 UNITS DAILY, Route to Pharmacy Electronically, [facility] [place], [facility]ID-[id number] , Instructions Replace Required Details, 165, cm, 10/30/24 13:23:00 SENIOR CORE JAVA DEVELOPER, Height, 67.7, kg, 10/30/24 13:23:00 SENIOR CORE JAVA DEVELOPER, Weight 5 Active Basaglar KwikPen U-100 Insulin 100 unit/mL (3 mL) pen syringe Inject 25 Units by subcutaneous injection. 4 Active insulin lispro (HumaLOG KwikPen Insulin) 100 unit/mL pen syringe 6 unit(s), SubQ, tid with meals, 15 mL, 1, 1, Route to Pharmacy Electronically, [facility], [id number] , 165, cm, 10/30/24 13:23:00 SENIOR CORE JAVA DEVELOPER, Height, 67.7, kg, 10/30/24 13:23:00 SENIOR CORE JAVA DEVELOPER, Weight 4 Active meclizine (ANTIVERT) 25 mg tablet 25 mg. 2 Active metoprolol tartrate (LOPRESSOR) 25 mg tablet Take 25 mg by mouth 2 times daily. 2 Active ondansetron (ZOFRAN) 4 mg Tablet 4 mg. 4 Active clopidogreL (PLAVIX) 75 mg Tablet Take 1 Tablet (75 mg) by mouth daily. 90 Tablet 3 01/07/2025 1:04 PM SENIOR CORE JAVA DEVELOPER 5 Active Active Problems Patient Care Coordination No te Formatting of this note migh t be different from the original. Vascular Care - Dr. Mark Gates MD, [facility], [facility] Heart and Vascular - [address] [facility] Problem Noted Date Diagnosed Date Stage 3b chronic kidney disease 01/02/2025 Benign essential HTN 01/02/2025 Dyslipidemia 01/02/2025 Encounters Date Type Department Care Team Description 05/28/2025 External Device Data ST[facility] ABSTRACTION Provider, Abstract 05/27/2025 External Device Data [facility] ABSTRACTION Provider, Abstract 05/20/2025 External Device Data [facility] ABSTRACTION Provider, Abstract 05/20/2025 External Device Data [facility] ABSTRACTION Provider, Abstract 05/20/2025 External Device Data [facility] ABSTRACTION Provider, Abstract 05/13/2025 External Device Data [facility] ABSTRACTION Provider, Abstract 05/06/2025 External Device Data [facility] ABSTRACTION Provider, Abstract 04/29/2025 External Device Data [facility] ABSTRACTION Provider, Abstract from Last 3 Months Social History Tobacco Use Types Packs/Day Years Used Date Smoking Tobacco: Never Smokeless Tobacco: Never Tobacco Cessation:Counseling Given: Not Answered Alcohol Use Standard Drinks/Week Comments Not Currently 0 (1 standard drink = 0.6 oz pur e alcohol) Comments Unknown Sex and Gender Information Value Date Recorded Sex Assigned at Not on file Legal Sex Female 4:15 PM SENIOR CORE JAVA DEVELOPER Gender Identity Not on file Sexual Orientation Not on file Last Filed Vital Signs Vital Sign Reading Time Taken Comments Blood Pressure 116/58 01/07/2025 2:00 PM SENIOR CORE JAVA DEVELOPER Pulse 72 01/07/2025 1:30 PM SENIOR CORE JAVA DEVELOPER Temperature 36.2 C (97.2 F) 01/07/2025 8:19 AM SENIOR CORE JAVA DEVELOPER Respiratory Rate 16 01/07/2025 2:00 PM SENIOR CORE JAVA DEVELOPER Oxygen Saturation 97% 01/07/2025 1:30 PM SENIOR CORE JAVA DEVELOPER Inhaled Oxygen Concentration - - Weight 66.7 kg (147 lb) 01/02/2025 8:21 AM SENIOR CORE JAVA DEVELOPER Height 165.1 cm (5' 5) 01/02/2025 8:21 AM SENIOR CORE JAVA DEVELOPER Body Mass Index 24.46 01/02/2025 8:21 AM SENIOR CORE JAVA DEVELOPER Plan of Treatment Health Maintenance Due Date Last Done Comments DIABETES MICROALBUMIN ANNUAL SCREEN 1973 LDL CHOLESTEROL ANNUAL 1973 FIT-DNA Q 3 years 2000 FIT/FOBT Q [...] 12/20/2023 DIABETES ANNUAL RETINAL EXAM 02/28/2025 02/29/2024 INFLUENZA VACCINE (#1) 2025 , 08/18/2022, 09/03/2020, Additional history exists DIABETES HBA1C Q 6 MONTHS 07/16/2025 01/13/2025, OSTEOPOROSIS SCREENING 02/05/2026 02/05/2021, 2020 COLORECTAL SCREENING 06/01/2031 06/01/2021 Colorectal Cancer Screening 06/01/2031 DTAP/TDAP/TD VACCINES (3 - T d or Tdap) 12/22/2033 12/22/2023, 04/30/2013, 04/30/2013 ZOSTER VACCINE Completed 02/12/2019, 12/13/2018 PNEUMOCOCCAL VACCINE 50+ YEARS Completed 0 12/20/2023, 07/22/2020, 12/12/2018, Additional history exists Medical Devices Implanted Type Area Factory Maintenance Manager Device Identifier Shelf Expiration Date Model / Serial / Lot Closure Perclose Proglide [id number] - [id number] Implanted:Qty : 1 on 01/07/2025 by Mark Gates MD at [facility] Closure Device Left: Groin ZHENG- VASC DEVICE [id number] 10/12/2026 [id number] / / [id number] Stent Synergy Xd 2.5x48mm Evrlms Elut [id number] - [id number] Implanted:Qty : 1 on 01/07/2025 by Mark Gates MD at [facility] Stent Left: Leg [employer] [id number] 03/05/2026 [id number] / / [id number] Stent Synergy Xd 3.0x48mm Evrlms Elut [id number] - [id number] Implanted:Qty : 1 on 01/07/2025 by Mark Gates MD at [facility] Stent Left: Leg [employer] [id number] 06/26/2026 [id number] / / [id number] Stent Synergy Xd 3.0x20mm Evrlms Elut [id number] - [id number] Implanted:Qty : 1 on 01/07/2025 by Mark Gates MD at [facility] Stent Left: Leg [employer] [id number] 02/27/2026 [id number] / / [id number] Insurance MEDICARE PART A AND B AETNA MEDICARE SUPP AESSI RX EXPRESS SCRIPTS Medicare Part D Care Teams Manager Learning Relationship Specialty Start Date End Date Tatum Rice DO [address] [facility] [address] [facility] [place] [address] PCP - General Internal Medicine 01/02/25
--- OUTSIDE RECORDS SUMMARY | 2025-06-15 14:16 | XMS_ITS | Clinical Summary ---
Author Organization [facility] Address [address] [facility] [place] [address] Care Team Providers Care Deployment Engineer Name Role Phone Tatum Rice DO Unavailable Amie Hickman MD Primary Care Provider [phone] Gautam Carlson MD Unavailable [phone] Source Comments [facility],non-owned Affiliates and Associated Physician Practices is amultiple site organization consisting of ambulatory clinics and hospital sitesin [place], [place], [place] and [place]. This disclosure is being madepursuant to the Care Everywhere program and may not contain all information available regarding this patient. Last updated 18.[facility] [employer] Allergies Active Allergy Reactions Criticality Noted Date [...] complication, without long-term current use of insulin ([facility]) Use 1 strip as directed 50 strip 5 06/20/20 18 Active cyanocobalamin (VITAMIN B-12) 1000 MCG tablet Take 1 (one) tablet by mouth once daily Active [place]-Glucosam ine-Vit D (GLUCOSAMINE COMPLEX PO) Take 2,000 mg by mouth once daily Active LANCETS MICRO THIN 33G MISCIndications:Ty pe 2 diabetes mellitus without complication, without long-term current use of insulin ([facility]) Use 1 Each as directed 100 Each [...] meal Active nilotinib (TASIGNA) 200 MG capsuleIndications :[place] Chromosome + Chronic Myelocytic Leukemia Take 2 (two) capsules by mouth 2 times daily No food 2 hrs before the dose or 1 hr after the dose. Grapefruit juice and other foods known to inhibit CY should be avoided. Reasons: [place] Chromosome + Chronic Myelocytic Leukemia 112 capsule [...] PILLS 100 tablet 4 11/21/19 24 Active blood glucose (True Metrix Blood [...] directed 100 Each 11 10/02/20 24 Active levETIRAcetam (Keppra) 500 MG tabletIndications: [...] daily 90 tablet 3 01/07/20 25 Active famotidine (Pepcid) 10 MG tablet Take 1 (one) tablet by mouth at bedtime 03/31/20 25 Active Asciminib HCl (Scemblix) 40 MG tablet Take 2 (two) tablets by mouth 2 times daily 03/31/20 25 Active atorvastatin (Lipitor) 80 MG tabletIndications: Hyperlipidemia, unspecified hyperlipidemia type Take 1 (one) tablet by mouth once daily 90 tablet 4 04/02/20 25 Active DULoxetine (Cymbalta) 60 MG capsuleIndications :Anxiety disorder, unspecified type,Major depressive disorder, remission status unspecified, unspecified whether recurrent TAKE ONE (1) CAPSULE BY MOUTH DAILY 30 capsule 04/30/20 25 Active Active Problems Problem Noted Date [...] Encounters Date Type Department Care Team Description 06/11/2025 Telephone Transitional Care at [address] [address] Masha Huggins, gym supervisor 06/03/2025 Transitional Care [facility]ORD[facility] [address] [place] [id number] Nathalie Zimmerman, FELIZ Transitions Of Care 05/27/2025 Telephone [facility] - Internal Med [address] [place] [phone] Amie Hickman MD Encounter Opened In Error 05/22/2025 Telephone Transitional Care at [address] [address] Masha Huggins, gym supervisor 05/20/2025 Telephone Transitional Care at [address] [address] Masha Huggins, gym supervisor 05/20/2025 Telephone [facility] - Internal Med [address] [place] [phone] Amie Hickman MD Home Health 04/30/2025 Refill [facility] - Internal Med [address] [place] [phone] Amie Hickman MD Refill Request 04/01/2025 Refill [facility] - Internal Med [address] [place] [phone] Amie Hickman MD MEDICATION REFILL 03/31/2025 Orders Only [facility] - Internal Med [address] [place] [phone] Tatum Rice, 03/20/2025 Telephone [facility] - Centralized Scheduling [address] [place] [address] Rosy Cabrera APRN-NIKKIE Reschedule Appointment (03/20-Spoke to patient--aware of Deborah's 06/12 cancellation-in Physical Therapy-will call back to reschedule-call back number given-Cancelled--DLM- MS) 03/20/2025 Telephone [facility] - Internal Med [address] [place] [phone] Tatum Rice, DO Home Health from Last 3 Months Immunizations Immunization Administration [...] on file Legal Sex Female 2:03 PM ADMINISTRATIVE SERVICES OFFICER Gender Identity Not on file Sexual Orientation Not on file Last Filed Vital Signs Vital Sign Reading Time Taken Comments Blood Pressure 150/74 11/27/2024 2:58 PM ADMINISTRATIVE SERVICES OFFICER Pulse 113 11/27/2024 2:58 PM ADMINISTRATIVE SERVICES OFFICER Temperature 36.4 C (97.5 F) 11/21/2024 10:18 AM ADMINISTRATIVE SERVICES OFFICER Respiratory Rate 18 08/28/2023 11:06 AM CDT Oxygen Saturation 96% 11/27/2024 2:58 PM ADMINISTRATIVE SERVICES OFFICER Inhaled Oxygen Concentration - - Weight 66.7 kg (147 lb) 11/27/2024 2:58 PM ADMINISTRATIVE SERVICES OFFICER Height 165.1 cm (5' 5) 11/27/2024 2:58 PM ADMINISTRATIVE SERVICES OFFICER Body Mass Index 24.46 11/27/2024 2:58 PM ADMINISTRATIVE SERVICES OFFICER Plan of Treatment Health Maintenance Due Date [...] 02/09/2025 02/09/2023, 01/12, 06/27/2018, Additional history exists INFLUENZA VACCINE (#1) 2025 , 08/13/2023, 08/24/2022, Additional history exists DIABETES-HGB A1C 10/13/2025 04/13/2025, 01/2025, 11/27/2024, Additional history exists DIABETES RETINOPATHY SCREENING 02/28/2026 [...] Completed 11/27/2024, 12/20/2023, 12/20/2023, Additional history exists HEPATITIS B VACCINE Aged [...] last dose Medical Devices Implanted Type Area Filbert Grower Device Identifier Shelf Expiration Date Model / Serial / Lot Mrkr Biop Site Securmrk Top Hat Implanted:Qty: 1 on 07/04/2018 by Charleen De La Rosa MD at [facility] Left: Breast Hologic 01/22/2019 SMARK-EVIVA -[id number] Procedures Procedure Name Priority Date/Time Associated Diagnosis Comments HEMOGLOBIN A1C - POINT OF CARE (AMB) [facility] Routine 11/27/2024 4:33 PM ADMINISTRATIVE SERVICES OFFICER Type 2 diabetes mellitus without complication, unspecified whether fci insulin use COMPREHENSIVE METABOLIC PANEL Routine 12/20/2023 4:17 PM ADMINISTRATIVE SERVICES OFFICER Tachycardia MAMMO BILAT SCREENING W TRENT Routine 02/09/2023 11:27 AM CDT Breast cancer screening by mammogram MICROALB/CREAT RATIO URINE RANDOM PANEL Routine 02/02/2023 2:41 PM CDT Type 2 diabetes mellitus without complication, without long-term current use of insulin ENDOSCOPY, COLON, DIAGNOSTIC Routine 06/01/2021 8:30 AM CDT DEXA BONE DENSITY AXIAL SKELETON Routine 02/05/2021 2:32 PM CDT Screening for osteoporosis NH 3 COMP FOOT EXAM COMPLETED Routine 03/08/2018 Type 2 diabetes mellitus without complication, without long-term current use of insulin HEPATITIS C ANTIBODY Routine 08/21/2012 1:42 PM CDT from Last 3 Months or Most Recently Relevant to Health Maintenance Results * HEMOGLOBIN A1C - POINT OF CARE (AMB) [facility] (11/27/2024 4:33 PM ADMINISTRATIVE SERVICES OFFICER) Pathologist [facility] Hemoglobin A1c POCT 7.3 % [facility] [address] [facility] Blood BLOOD SPECIMEN / Unknown 11/27/2024 4:33 PM ADMINISTRATIVE SERVICES OFFICER us Tatum Rice DO LAB - POINT OF CARE ORDERABLE S Final Result ALHAJI Downs [facility] [address] [facility] [place] [address] [phone] * (ABNORMAL) COMPREHENSIVE METABOLIC PANEL (12/20/2023 4:17 PM ADMINISTRATIVE SERVICES OFFICER) BUN 19 7 - 26 mg/dL 12/20/2023 5:09 PM [facility] Creatinine 1.11(H) 0.56 - 0.96 mg/dL 12/20/2023 5:09 PM [facility] Sodium 141 136 - 145 mmol/L 12/20/2023 5:09 PM [facility] Potassium 3.9 3.5 - 4.5 mmol/L 12/20/2023 5:09 PM [facility] Chloride 109(H) 98 - 107 mmol/L 12/20/2023 5:09 PM [facility] CO2 16(L) 22 - 29 mmol/L 12/20/2023 5:09 PM [facility] Glucose 157(H) 70 - 115 mg/dL 12/20/2023 5:09 PM [facility] Calcium 9.5 8.4 - 10.2 mg/dL 12/20/2023 5:09 PM [facility] Protein Total 7.0 6.0 - 8.3 g/dL 12/20/2023 5:09 PM [facility] Albumin 3.6 3.4 - 5.0 g/dL 12/20/2023 5:09 PM [facility] Bilirubin Total 0.2 0.2 - 1.2 mg/dL 12/20/2023 5:09 PM [facility] Alkaline Phosphatase 61 40 - 150 U/L 12/20/2023 5:09 PM [facility] ALT 19 5 - 55 U/L 12/20/2023 5:09 PM [facility] AST 15 5 - 34 U/L 12/20/2023 5:09 PM [facility] Anion Gap 16 6 - 16 12/20/2023 5:09 PM [facility] BUN/Creatinine Ratio 17 7 - 23 12/20/2023 5:09 PM [facility] Osmolality Calculated 298(H) 275 - 295 mOsm/kg 12/20/2023 5:09 PM [facility] Albumin/Globulin Ratio 1.1 1.1 - 2.3 12/20/2023 5:09 PM [facility] eGFR by CKD-EPI 54(L) >=90 mL/min/1.7 3 m2 12/20/2023 5:09 PM [facility] Blood BLOOD SPECIMEN / Unknown Lab Venipuncture / Unknown 12/20/2023 4:17 PM ADMINISTRATIVE SERVICES OFFICER 12/20/2023 4:38 PM ADMINISTRATIVE SERVICES OFFICER Tatum Rice DO LAB - CHEMISTRY ORDERABLES Fi nal Result [facility] [address] [place] [address], [facility] [phone] * MAMMO BILAT SCREENING W TRENT (02/09/2023 11:27 AM CDT) Anatomical Region Laterality Modality Breast Bilateral Mammography 02/09/2023 11:4 7 AM CDT Impressions 02/09/2023 12:59 PM CDT : Benign mammogram, without evidence of malignancy. RECOMMENDATION: 1. Screening mammography in one year, pending no interval breast concerns. 2. Consultation in the [facility] Breast Surgery High Risk [facility], given the elevated lifetime risk of developing breast cancer greater than 20%. Should she wish to schedule a consultation, the phone number [phone]. 3. Screening breast MRI is recommended, according to the [place] [employer] guidelines, and can be alternated at 6 month intervals with mammography or performed at the time of screening mammography. This can be managed by the High-Risk Breast Clinic. OVERALL ASSESSMENT: BI-RADS CATEGORY 2: BENIGN. > Dictated by Narinder Lujan DO (Medical Instructor) IKimberly MD have personally reviewed and interpreted this [...] cancer greater than 20%, consultation in the [facility] Breast Surgery High Risk Clinic is recommended. Should she wish to schedule an appointment, the phone number [phone]. The [place] Cancer [employer] recommends MRI screening in addition [...] Not Established ug/mL 02/02/2023 3:36 PM CDT [facility] Creatinine Urine 194 Not Established mg/dL 02/02/2023 3:36 PM CDT [facility] Urine Albumin/Creati nine Ratio 48(H) <30 mg/g 02/02/2023 3:36 PM CDT [facility] Urine URINE SPECIMEN OBTAINED BY CLEAN CATCH PROCEDURE / Unknown Collection / Unknown 02/02/2023 2:41 PM CDT 02/02/2023 3:05 PM CDT us Emely Berry MD LAB - URINE CHEMISTRY ORDER ALLAN Final Result Performing Organization Address City/State/ZIP Ia de Phone Number [facility] [address] [place] [address], [facility] [phone] * ENDOSCOPY, COLON, DIAGNOSTIC (06/01/2021 8:30 AM [...] and oxygen saturations were monitored continuously. The [id number] was introduced through the anus and advanced to the terminal ileum, with identification of the appendiceal orifice and IC valve. The colonoscopy was performed without difficulty. The patient tolerated the procedure well. The quality of the bowel preparation was evaluated using the BBPS ([place] Bowel Preparation Scale) with scores of: Right [...] entire procedure. Procedure Code(s): --- Professional --- 83433, Colonoscopy, flexible; with removal of tumor(s), polyp(s), or other lesion(s) by snare technique 70956, Colonoscopy, flexible; with directed submucosal injection(s), any substance 42265, 59, Colonoscopy, flexible; with biopsy, single or multiple Diagnosis Code(s): --- Professional --- Z86.010, Personal history of colonic polyps K63.5, Polyp of colon K64.0, First degree hemorrhoids K64.4, Residual hemorrhoidal skin tags K57.30, Diverticulosis of large intestine without perforation or abscess without bleeding CPT copyright 2019 [employer]. All rights reserved. The codes documented in this report are preliminary and upon drilling and production superintendent review may be revised to meet current compliance requirements. Laura Hi MD 06/01/2021 9:37:14 AM This report has been signed electronically. Note Initiated On: 06/01/2021 8:30 AM Number of Addenda: [address] [address] [facility] PROVATION 06/01/2021 8:30 AM CDT Laura Hi MD GI PROCEDURE ORDERABLES Edited Result - Final [facility]ATION * BONE DENSITY AXIAL SKELETON(1OR MORE SITES)[id number] (02/05/2021 2:32 PM CDT) Anatomical Region Laterality Modality Other 02/05/2021 2:57 PM CDT Narrative 02/05/2021 4:13 PM CDT Examination: Dual energy x-ray absorptiometry of the lumbar spine and hip. Clinical Indication: Z13.820: Screening for osteoporosis Findings: Detailed data from the exam is sent separately to the ordering physician and is also available on [employer], the Radiology Department's computerized picture archive system. [...] Rajesh Llamas on 02/05/2021 2:59 PM . I, Dr. ADRIANA FERNANDES D.O. have personally reviewed and interpreted this examination/study. This report was electronically signed by ADRIANA FERNANDES D.O. on 02/05/2021 4:13 PM . Procedure Note Adriana Fernandes, DO - 02/05/2021 Examination: Dual energy x-ray absorptiometry of the lumbar spine andhip. Clinical Indication: Z13.820: Screening for osteoporosis Findings: Detailed data from the exam is sent separately to the ordering physician and is also available on [employer], the Radiology Department's computerized picture archive system. [...] Rajesh Llamas on 02/05/2021 2:59 PM . I, Dr. ADRIANA FERNANDES D.O. have personally reviewed and interpreted this examination/study. This report was electronically signed by ADRIANA FERNANDES D.O. on02/05/2021 4:13 PM . us Tatum Rice DO DEXA ORDERABLES Final Result * [place] 3 COMP FOOT EXAM COMPLETED (Automatically Completed) (03/08/2018) ImpressionVielka Gutierrez MD - 03/08/2018 Please see foot exam in progress note us Vielka Cox MD [facility] - PROFESSIONAL SERVICES Final Result * HEPATITIS C ANTIBODY (08/21/2012 1:42 PM CDT) Hepatitis C Antibody NONREACTIVE NONREACTIVE [facility] Comment: Anti-HCV screen indicates no serologic [...] MD LAB - CHEMISTRY ORDERABLES Final Result [address] [phone] from Last 3 Months or Most Recently Relevant to Health Maintenance Insurance MEDICARE AETNA MEDICARE AETNA Care Teams Deployment Engineer Relationship Specialty Start Date End Date Amie Hickman MD [address] [facility] DIV OF [address] [address] PCP - General Internal Medicine 08/27/24 Tatum Rice DO [address] DIV OF [facility] [place] [address] Physician Internal Medicine 12/28/23 Gautam Carlson MD [address] [place] [address] [address] [place] [id number] Hematology and Oncology 11/27/24
--- OUTSIDE RECORDS SUMMARY | 2025-06-15 14:16 | XMS_ITS | Encounter Summary ---
Author Organization [facility] Healthcare Address [address] [place] [address] Care Team Providers Care Channel Process Supervisor Name Role Phone Tatum Rice Primary Care Provider Encounter Details Date Type Department Care Team (Latest Contact Info) Description 06/06/2025 Results Follow-Up [facility] Medical Group Gastroenterology at [address] [place] [address] Bobbi Pitt MD [address] [place] [address] [address] [place] [address] Hemochromatosis HFE Gene Analysis Social History Tobacco Use Types Packs/Day Years Used Date Smoking Tobacco: Never Smokeless Tobacco: Never Alcohol Use Standard Drinks/Week Comments Not Currently 0 (1 standard drink = 0.6 oz pur e alcohol) [facility] Utilities Answer Date Recorded In the past 12 months has [employer] electric, gas, oil, or water company threatened [...] week 06/02/2025 How often do you attend [facility] or roman catholic services? Never 06/02/2025 Do you belong to any clubs o r organizations such as baptism groups, unions, fraternal or athletic groups, or [...] place to sleep or slept in a penitentiary (including now)? No 06/20/2023 PHQ-9 Answer Date [...] any time in the past 12 m [facility], were you homeless or living in a penitentiary (including now)? No 06/02/2025 Personal Safety Answer [...] on file Legal Sex Female 7:59 PM ACCOUNT SUPPORT ASSOCIATE Gender Identity Not on file Sexual Orientation Not on file documented as of this encounter Miscellaneous Notes * Result Encounter Note - Cristine Hagan MA - 06/09/2025 1:03 PM CDT Lvm for pt to call back, letter has been sent to patient documented in this encounter Plan of Treatment Not on file documented as of this encounter Visit Diagnoses Not on filedocumented in this encounter Additional Health Concerns Infection Onset Date Last Indicated Resolved Time C. difficile 2025 2025 documented as of this encounter Care Teams Channel Process Supervisor Relationship Specialty Start Date End Date Tatum Rice DO PCP - General 05/30/22 documented as of this encounter
--- OUTSIDE RECORDS SUMMARY | 2025-06-15 14:16 | XMS_ITS | Encounter Summary ---
Author Organization [facility] Address [address] [place] [address] Care Team Providers Care Graphics Specialist Name Role Phone Tatum Rice DO Primary Care Provider [phone] Jazmín San MD Unavailable Tatum Rice DO Unavailable Amie Hickman MD Primary Care Provider Gautam Carlson MD Unavailable [phone] Reason for Visit * Reason Onset Date Comments MEDICATION REFILL 11/02/2021 MEDICATION REFILL 11/30/2021 Encounter Details Date Type Department Care Team (Late st Contact Info) Description 11/02/2021 Refill [facility] - [facility] [address] [place] [address] Tatum Rice DO [address] [facility] [place] [phone] MEDICATION REFILL; MEDICATION REFILL Social History Tobacco Use Types Packs/Day Years Used Date Smoking Tobacco: Never Smokeless Tobacco: Never Alcohol Use Standard Drinks/Week Comments No 0 (1 standard drink = 0.6 oz pur e alcohol) Comments No Sex and Gender Information Value Date Recorded Sex Assigned at Not on file Legal Sex Female 2:03 PM BROWNFIELD REDEVELOPMENT SPECIALIST Gender Identity Not on file Sexual Orientation Not on file COVID-19 Exposure Response Date Recorded In the last month, have you been in contact with someone who was confirmed or suspected to have Coronavirus / COVID-19? No / Unsure 10/21/2021 2:50 PM BROWNFIELD REDEVELOPMENT SPECIALIST documented as of this encounter Plan [...] hypertension documented in this encounter Care Teams Graphics Specialist Relationship Specialty Start Date End Date Tatum Rice DO [address] [facility] 2[address] DIV OF [facility] [place] [address] PCP - General 01/06/21 12/12/23 Amie Hickman MD [address] [facility] DIV OF [address] [address] PCP - General Internal Medicine 08/27/24 Jazmín San MD [address] [facility] [place] [place] [phone] Resident - PCP Student Resident 06/18/21 08/26/24 Tatum Rice DO [address] [facility] 2L DIV OF [facility] [place] [address] Physician Internal Medicine 12/28/23 Gautam Carlson MD [address] [facility] [address] [place] [address] Hematology and Oncology 11/27/24 documented as of this encounter
--- OUTSIDE RECORDS SUMMARY | 2025-06-15 14:16 | XMS_ITS ---
Author Organization [facility] Address [address] [facility] [place] [address] Care Team Providers Care Ski Lift Mechanic Name Role Phone Tatum Rice DO Unavailable [phone] Amie Hickman MD Primary Care Provider [phone] Gautam Carlson MD Unavailable [phone] Active Problems * This document contains information [...]
--- OUTSIDE RECORDS SUMMARY | 2025-06-15 14:16 | XMS_ITS | Encounter Summary ---
Author Organization [facility] Address [address] [facility] [place] [address] Care Team Providers Care Fish Hatchery Manager Name Role Phone Rasheed Rebolledo DO Unavailable Unavailable Rasheed Rebolledo DO Primary Care Provider Unavail able Tatum Rice DO Primary Care Provider [phone] Jazmín San MD Unavailable Tatum Rice DO Unavailable [phone] Amie Hickman MD Primary Care Provider Gautam Carlson MD Unavailable [phone] Reason for Visit * Reason Onset Date Comments MEDICATION REFILL 09/04/2019 MEDICATION REFILL 09/30/2019 MEDICATION REFILL 12/17/2019 Encounter Details Date Type Department Care Team (Late [facility]) Description 09/04/[address] [facility] General Internal Medicine [address] [address] Rasheed Rebolledo, Need updated address MEDICATION REFILL; MEDICATION REFILL; MEDICATION REFILL Social History Tobacco Use Types Packs/Day Years Used Date Smoking Tobacco: Never Smokeless Tobacco: Never Alcohol Use Standard Drinks/Week Comments No 0 (1 standard drink = 0.6 oz pur e alcohol) Comments No Sex and Gender Information Value Date Recorded Sex Assigned at Not on file Legal Sex Female 2:03 PM JOB CHANGE CREW MEMBER Gender Identity Not on file Sexual [...] (HCC) documented in this encounter Care Teams Fish Hatchery Manager Relationship Specialty Start Date End Date Rasheed Rebolledo DO PCP - General 07/04/19 01/05/21 Tatum Rice DO [address] DIV OF [facility] [place] [address] PCP - General 01/06/21 12/12/23 Amie Hickman MD [address] DIV OF INT MED [address] [place] [address] PCP - General Internal Medicine 08/27/24 Rasheed Rebolledo DO Resident - PCP Student Resident 07/04/19 06/17/21 Jazmín San MD [address] [facility] [place] [phone] Resident - PCP Student Resident 06/18/21 08/26/24 Tatum Rice DO [address] DIV OF [facility] [place] [address] Physician Internal Medicine 12/28/23 Gautam Carlson MD [address] [facility] [place] [address] Hematology and Oncology 11/27/24 documented as of this encounter
--- OUTSIDE RECORDS SUMMARY | 2025-06-15 14:16 | XMS_ITS | Encounter Summary ---
Author Organization [facility] Address [address] [facility] [place] [address] Care Team Providers Care Core Stripper Name Role Phone Tatum Rice DO Primary Care Provider [phone] Rasheed Rebolledo DO Unavailable Unavailable Rasheed Rebolledo DO Primary Care Provider Unavail able Tatum Rice DO Primary Care Provider Jazmín San MD Unavailable Tatum Rice DO Unavailable [phone] Amie Hickman MD Primary Care Provider [phone] Gautam Carlson MD Unavailable Reason for Visit * Reason Onset Date Comments MEDICATION REFILL 02/12/2019 Encounter Details Date Type Department Care Team (Late st Contact Info) Description 02/12/2019 Refill [facility] General Internal Medicine [address] [address] Nyasia Hogan APRN-NIKKIE [address] [place], [place] [id number] MEDICATION REFILL Social History Tobacco Use Types Packs/Day Years Used Date Smoking Tobacco: Never Smokeless Tobacco: Never Alcohol Use Standard Drinks/Week Comments No 0 (1 standard drink = 0.6 oz pur e alcohol) Comments No Sex and Gender Information Value Date Recorded Sex Assigned at Not on file Legal Sex Female 2:03 PM HUSBANDRY TECHNICIAN Gender Identity Not on file Sexual Orientation Not on file documented as of this encounter Plan of Treatment Not on file documented as of this encounter Visit Diagnoses Not on filedocumented in this encounter Care Teams Core Stripper Relationship Specialty Start Date End Date Tatum Rice DO [address] [place] [address] PCP - General 12/17/18 05/12/19 Rasheed Rebolledo DO [address] [place] [address] PCP - General 07/04/19 01/05/21 Tatum Rice DO [address] [facility] 2L DIV OF [facility] [place] [address] PCP - General 01/06/21 12/12/23 Amie Hickman MD [address] [facility] DIV OF INT MED [address] [place] [phone] PCP - General Internal Medicine 08/27/24 Rasheed Rebolledo DO [address] [place] [address] Resident - PCP Student Resident 07/04/19 06/17/21 Jazmín San MD [address] [place] [phone] Resident - PCP Student Resident 06/18/21 08/26/24 Tatum Rice DO [address] [facility] 2L DIV OF [facility] [place] [phone] Physician Internal Medicine 12/28/23 Gautam Carlson MD [address] [facility] [address] [place] [address] Hematology and Oncology 11/27/24 documented as of this encounter
--- OUTSIDE RECORDS SUMMARY | 2025-06-15 14:16 | XMS_ITS | Encounter Summary ---
Author Organization [facility] Address [address] [facility] [place] [address] Care Team Providers Care Contracting Engineer Name Role Phone Tatum Rice DO Primary Care Provider [phone] Jazmín San MD Unavailable Tatum Rice DO Unavailable Amie Hickman MD Primary Care Provider Gautam Carlson MD Unavailable [phone] Reason for Visit * Reason Onset Date Comments Appointment 04/25/2022 Encounter Details Date Type Department Care Team (Late st Contact Info) Description 04/25/2022 Telephone [facility] [address] [place] [address] Tatum Rice DO [address] OF [facility] [place] [phone] Appointment Social History Tobacco Use Types Packs/Day Years Used Date Smoking Tobacco: Never Smokeless Tobacco: Never Alcohol Use Standard Drinks/Week Comments No 0 (1 standard drink = 0.6 oz pur e alcohol) PHQ-2 Answer Date Recorded PHQ2 TOTAL SCORE 0 04/28/2022 Comments No Sex and Gender Information Value Date Recorded Sex Assigned at Not on file 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 Patient Call Back number: [phone] documented in this encounter Plan of Treatment [...] on filedocumented in this encounter Care Teams Contracting Engineer Relationship Specialty Start Date End Date Tatum Rice DO [address] DIV OF [facility] [place] [phone] PCP - General 01/06/21 12/12/23 Amie Hickman MD [address] [facility] DIV OF [address] [phone] PCP - General Internal Medicine 08/27/24 Jazmín San MD [address] [facility] [place] [address] Resident - PCP Student Resident 06/18/21 08/26/24 Tatum Rice DO [address] OF [facility] [place] [address] Physician Internal Medicine 12/28/23 Gautam Carlson MD [address] [facility] [address] [place] [id number] Hematology and Oncology 11/27/24 documented as of this encounter
--- OUTSIDE RECORDS SUMMARY | 2025-06-15 14:16 | XMS_ITS | Encounter Summary ---
Author Organization [facility] Address [address] [facility] [place] [address] Care Team Providers Care Meal Cooker Name Role Phone Tatum Rice DO Primary Care Provider [phone] Rasheed Rebolledo DO Unavailable Unavailable Rasheed Rebolledo DO Primary Care Provider Unavail able Tatum Rice DO Primary Care Provider [phone] Jazmín San MD Unavailable Tatum Rice DO Unavailable Amie Hickman MD Primary Care Provider Gautam Carlson MD Unavailable [phone] Reason for Visit * Reason Onset Date Comments MEDICATION REFILL 03/19/2019 Encounter Details Date Type Department Care Team (Late st Contact Info) Description 03/19/2019 Refill [facility] General Internal Medicine [address] [facility] [address] [place] [address] Tatum Rice DO [address] [facility] [place] [address] MEDICATION REFILL Social History Tobacco Use Types Packs/Day Years Used Date Smoking Tobacco: Never Smokeless Tobacco: Never Alcohol Use Standard Drinks/Week Comments No 0 (1 standard drink = 0.6 oz pur e alcohol) Comments No Sex and Gender Information Value Date Recorded Sex Assigned at Not on file 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 Gender Identity Not on file Sexual Orientation [...] leg documented in this encounter Care Teams Meal Cooker Relationship Specialty Start Date End Date Tatum Rice DO [address] [place] [address] PCP - General 12/17/18 05/12/19 Rasheed Rebolledo DO [address] [place] [address] PCP - General 07/04/19 01/05/21 Tatum Rice DO [address] [facility] 2L DIV [place] [address] PCP - General 01/06/21 12/12/23 Amie Hickman MD [address] [facility] DIV OF INT MED [address] [place] [phone] PCP - General Internal Medicine 08/27/24 Rasheed Rebolledo DO [address] [place] [address] Resident - PCP Student Resident 07/04/19 06/17/21 Jazmín San MD [address] [facility] [place] [address] Resident - PCP Student Resident 06/18/21 08/26/24 Tatum Rice DO [address] [facility] 2L DIV [place] [address] Physician Internal Medicine 12/28/23 Gautam Carlson MD [address] [facility] [address] [place] [address] Hematology and Oncology 11/27/24 documented as of this encounter
--- OUTSIDE RECORDS SUMMARY | 2025-06-15 14:16 | XMS_ITS | Continuity of Care Document ---
Author Organization [facility] Address [address] [facility] [address] [place] [address] Phone Care Team Providers Care Stockroom Selector Name Role Phone Lidya Jett OT Unavailable Unavailable Procedures Procedure Date Progress Note Therapeutic Exercise Manual Therapy Therapeutic Activities Hot or Cold Pack Therapeutic Activities Hot or Cold Pack Therapeutic Exercise Doc neg elder mal no plan OT Evaluation Low Complexity Hot or Cold Pack Orthotic Mgmt And Training Subsequent En counter Therapeutic Activities Doc neg elder mal no plan Therapeutic Activities Orthotic Mgmt and Training WHO w/o joints CF Advance Directives Directive Yes / No Effective Date File Name No Information Encounters Encounter Description Practice Location Reason(s) For Visit Diagnoses Date Provider Providers Copied on Encounter [facility], [place], [place], [id number], [place] tel:[phone] [place] No Information Johnie Bose. . Referring Provider: Renate Aguillon [address] [facility] [address], [place], [address]. tel:[phone] [facility], [place], [place], [id number], tel:[phone] [place] No Information Johnie Bose. . Referring Provider: Renate Aguillon [address] [facility] [address], [place], [address]. tel:[phone], [id number], tel:[phone] [place] No Information Johnie Bose. . Referring Provider: Renate Aguillon [address] [facility] [address] [place], [place], [address]. tel:[phone] [address], [place], [place], [id number], tel:[phone] [place] No Information Johnie Bose. . Referring Provider: Renate Aguillon [address] [facility] [address] [place], [place], [address]. tel:[phone] Family History Family Member Type Diagnosis Age At Onset No Information Payers Payer name Insurance type Covered democrat ID Authorportiaa bernard(s) Medicare [place] MB [id number] Aetna Senior Supplemental Insurance [place] [id number] Social History Type Description Quantity Date Captured Comments Sex Female Smoking Status No Information Chief Complaint And Reason For Visit No Information Reason For Referral Reason For Referral No Information History Of Present Illness Encounter Date Complaint History Of Prese nt Illness No Information Functional Status Date Functional Assessmen t No Information Instructions Date Instruction Additional Infor mation No Information Assessments Type Assessment Date No Information Patient Care Teams Name Effective Dates (start - stop) Status Members No Information
--- OUTSIDE RECORDS SUMMARY | 2025-06-15 14:16 | XMS_ITS | Encounter Summary ---
Author Organization [facility] Address [address] [facility] [place] [address] Care Team Providers Care Groundskeeper Supervisor Name Role Phone Haydee Shepherd MD Primary Care Provider [phone] Nakul Stern Unavailable Unavailable Haydee Shepherd MD Primary Care Provider [phone] Tatum Rice DO Primary Care Provider [phone] Rasheed Rebolledo DO Unavailable Unavailable Rasheed Rebolledo DO Primary Care Provider Unavail able Tatum Rice DO Primary Care Provider [phone] Jazmín San MD Unavailable Tatum Rice DO Unavailable [phone] Amie Hickman MD Primary Care Provider [phone] Gautam Carlson MD Unavailable [phone] Reason for Visit * Reason Onset Date Comments MEDICATION REFILL 04/27/2018 Encounter Details Date Type Department Care Team (Late st Contact Info) Description 04/27/2018 Refill [facility] General Internal Medicine [address] [place] [address] Haydee Shepherd MD [address] [place] [address] MEDICATION REFILL Social History Tobacco Use Types Packs/Day Years Used Date Smoking Tobacco: Never Smokeless Tobacco: Never Alcohol Use Standard Drinks/Week Comments No 0 (1 standard drink = 0.6 oz pur e alcohol) Comments No Sex and Gender Information Value Date Recorded Sex Assigned at Not on file 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 Gender Identity Not on file Sexual Orientation [...] to provider per protocol jhon DE LEÓN 03/22/17Sep06/20/18 documented in this encounter Plan of Treatment Not on file documented as of this encounter Visit Diagnoses Not on filedocumented in this encounter Care Teams Groundskeeper Supervisor Relationship Specialty Start Date End Date Haydee Shepherd MD PCP - General 03/13/18 12/11/18 Haydee Shepherd MD PCP - General Internal Medicine 12/12/18 12/16/18 Tatum Rice DO [address] [place] [address] PCP - General 12/17/18 05/12/19 Rasheed Rebolledo DO [address] [place] [address] PCP - General 07/04/19 01/05/21 Tatum Rice DO [address] [place] [address] PCP - General 01/06/21 12/12/23 Amie Hickman MD [address] DIV OF [facility] MED [address] [place] [phone] PCP - General Internal Medicine 08/27/24 Nakul Stern Core Baker Psychiatry 07/11/18 12/11/18 Rasheed Rebolledo DO [address] [place] [address] Resident - PCP Student Resident 07/04/19 06/17/21 Jazmín San MD [address] [facility] [place] [place] [address] Resident - PCP Student Resident 06/18/21 08/26/24 Tatum Rice DO [address] [place] [address] Physician Internal Medicine 12/28/23 Gautam Carlson MD [address] [facility] [facility] [address] [place] [address] Hematology and Oncology 11/27/24 documented as of this encounter
--- OUTSIDE RECORDS SUMMARY | 2025-06-15 14:16 | XMS_ITS ---
Author Organization [facility] Address [address] [place] [address] Care Team Providers Care Solution Manager Name Role Phone Tatum Rice DO Primary Care Provider Unavaila Austyn Lopez Unavailable [phone] REASON FOR VISIT Arthritis of right AC joint, Right rotator cuff tendonitis, s/p CSI on 12/16/24 Encounters Encounter Location Date Provider Diagnosis . [facility] [place] [address] [place] [address] 02/12/2025 Austyn Martinez PLAN OF TREATMENT No Information
[2025-06-15 14:30] LABS: Estimated CRCL calculation 31 ml/min; Estimated Glomerular Filt Rate 40
[2025-06-15 15:49] LABS: Thyroid Stimulating Hormone Reflex 3.790 uIU/mL (0.465-4.68)
[2025-06-15 17:03] LABS: Add Urine Microscopic? YES; Appearance Urine Clear (Clear); Glucose Urine UA Negative (Negative); Leukocyte Esterase Ur Negative LEU/UL (Negative); Nitrate Urine Negative (Negative); Non Pathogenic Casts 0-2; Specific Grav Ur > 1.045 (1.001-1.035)
[2025-06-15 17:27] LABS: Cannabinoid Screen Urine Negative (Negative)
--- NOTE | 2025-06-15 18:02 | PC.NURSE ---
talked to Jessi at [facility] to let them know the pt will be transferred to a higher level of care
--- NOTE | 2025-06-15 18:18 | PC.NURSE ---
pt unable to sign consent for herself. 2 RN verification done
== END 2025-06-15 19:05 | disposition short-term general hospital (02) ==
PROVIDERS: Emergency Medicine; Emergency Provider Registered Nurse
DX: I62.00 Nontraumatic subdural hemorrhage, unspecified (principal); I60.9 Nontraumatic subarachnoid hemorrhage, unspecified; R29.710 NIHSS score 10; F03.90 Unspecified dementia, unspecified severity, without behavioral disturbance, psychotic disturbance, mood disturbance, and anxiety; C92.10 Chronic myeloid leukemia, BCR/ABL-positive, not having achieved remission; E11.22 Type 2 diabetes mellitus with diabetic chronic kidney disease; I13.0 Hypertensive heart and chronic kidney disease with heart failure and stage 1 through stage 4 chronic kidney disease, or unspecified chronic kidney disease; N18.2 Chronic kidney disease, stage 2 (mild); I50.9 Heart failure, unspecified; E03.9 Hypothyroidism, unspecified; E78.5 Hyperlipidemia, unspecified; E11.51 Type 2 diabetes mellitus with diabetic peripheral angiopathy without gangrene; I73.9 Peripheral vascular disease, unspecified; G40.909 Epilepsy, unspecified, not intractable, without status epilepticus; K21.9 Gastro-esophageal reflux disease without esophagitis; F41.9 Anxiety disorder, unspecified; F32.A Depression, unspecified; Z86.2 Personal history of diseases of the blood and blood-forming organs and certain disorders involving the immune mechanism; Z79.899 Other long term (current) drug therapy; Z79.02 Long term (current) use of antithrombotics/antiplatelets; Z79.4 Long term (current) use of insulin; R94.31 Abnormal electrocardiogram [ECG] [EKG]
CPT/HCPCS: 36415; 70450; 70496; 70498; 71045; 80053; 80307; 81001; 82948; 84443; 85025; 85610; 85730; 93005; 99291; Q9967